=== PATIENT | male | born 1940 | race Caucasian/White ===

== ENCOUNTER 2018-04-29 14:23 | Emergency (ER) | payer MEDICARE, SELFPAY ==
[2018-04-29 14:24] VITALS: BP 149/90; PULSE 70; RESP 18; TEMP 36.7; O2SAT 99; BMI 17.2
--- NOTE | 2018-04-29 14:54 | NURSING ---
NO LW OR POA
--- NOTE | 2018-04-29 15:20 | ED.VISSUMM ---
- ER Visit Summary Date of Service: 04/29/18 Chief Complaint: Left calf pain History of Present Illness: The patient is a 78 M presenting with left calf pain. Patient complains of progressively increasing pain in the left calf. He exercises frequently. He does not recall specific injury. He was seen by his nurse practitioner for his primary care physician on Thursday. On Thursday he had venous Doppler and x-ray which were normal per patient. He is able to ambulate. He tried naproxen at home. He presents today due to persistent pain. Physical Examination: Vitals are stable. Patient is afebrile. Alert no acute distress. HEENT exam is unremarkable. Lungs are clear and equal bilaterally. Heart is regular rate and rhythm. Abdomen is soft nontender nondistended. Extremities very mild lateral left calf tenderness. No erythema or warmth. No swelling. Compartments soft. Normal DP and PT pulses. Active full range of motion. Skin is warm and dry. No focal neurologic deficit. Remainder of exam is unremarkable. Emergency Department Course and Treatment: Basic metabolic panel was obtained and shows a BUN of 21 with no old for comparison. Patient was discussed with Dr. Woodall and he will be seen for outpatient follow-up. He is advised to stay hydrated and use Tylenol for pain. Advised to rest ice and elevate. Advised return to ED if worsening complaints. Disposition: Discharge home Impression: Left lower extremity pain This note was generated with [employer] dictation software. It may contain incorrect words, spelling, and punctuation that were not noted in review of the chart prior to signing ED Disposition - Plan for ED Patient: Chief Complaint: Lower Extremity Injury Referrals: Benny Woodall III, MD [Primary Care Provider] -
[2018-04-29 15:36] LABS: Anion Gap 4 (5-15); BUN 21 mg/dL (7-18); BUN/Creat Ratio 22.2 RATIO (10-20); Calcium,Total 8.7 mg/dL (8.5-10.1); Chloride 105 mmol/L (98-107); Creatinine, Serum 0.94 mg/dL (0.70-1.30); EST Glomerular Filtration Rate 82 mL/min (>60); Est Glom Filt Rate - Afr Amer 99 mL/min (>60); Estimated Creatinine Clearance 46.15 ml/min; Glucose 93 mg/dL (74-106); Sodium Level 139 mmol/L (136-145)
--- NOTE | 2018-04-29 15:52 | ED.DEP ---
ED Disposition - Plan for ED Patient: Chief Complaint: Lower Extremity Injury Instructions: ED Muscle Pain Leg Cramps Referrals: Benny Woodall III, MD [Primary Care Provider] -
== END 2018-04-29 16:14 | disposition home or self-care (01) ==
LOC: ED 15:18
PROVIDERS: Emergency Provider Emergency Medicine; Family Provider Family Medicine; PCP Family Medicine
DX: M79.605 Pain in left leg (principal); I10 Essential (primary) hypertension; Z79.899 Other long term (current) drug therapy
CPT/HCPCS: 36415; 80048; 99282

== ENCOUNTER 2023-04-18 12:26 | Inpatient (IN) | payer MEDICARE, SELFPAY ==
[2023-04-18 12:28] VITALS: BP 158/75; PULSE 58; RESP 16; TEMP 36.8; O2SAT 95; BMI 17.4
--- NOTE | 2023-04-18 13:02 | CT_ITS ---
INDICATION: trauma, pain EXAMINATION: CT CERVICAL SPINE - CT Spine Cervical W/O Contrast Injection TECHNIQUE: Helically acquired images were obtained of the cervical spine. 2D reformatted images were reviewed. A radiation dose optimization technique was used for this scan. IV Contrast dosage and agent: None. RADIATION DOSAGE (If Supplied By Facility): CTDIvol = ( 15.80 ) mGy, DLP = ( 273.20 ) mGycm COMPARISON: FINDINGS: VERTEBRAE: No fracture. C7-T1 2 mm of anterior subluxation likely degenerative. There are 3 lytic lesions within the C7 vertebral body measuring up to 6 mm in diameter. These could represent hemangiomas or metastatic disease. DISCS and SPINAL CANAL: C2-3: Moderate loss of disc space height, mild disc osteophyte. C3-4 moderate loss of disc space height, mild disc osteophyte. C4-5 severe loss of disc space height, mild disc osteophyte, bilateral facet arthropathy and uncovertebral joint disease with moderate bilateral neural foraminal encroachment. C5-6 moderate loss of disc space height, mild disc osteophyte, bilateral facet arthropathy and uncovertebral joint disease with moderate bilateral neural foraminal encroachment. C6-7 moderate loss of disc space height, mild disc osteophyte, bilateral facet arthropathy and uncovertebral joint disease with moderate bilateral neural foraminal encroachment. C7-T1 mild central bulge, bilateral facet arthropathy and uncovertebral joint disease with moderate bilateral neural foraminal encroachment. Lung apices: Mild biapical fibrosis. NECK SOFT TISSUES: No prevertebral soft tissue swelling. There is no cervical adenopathy. LUNG APICES: Clear. CT/Spine Cervical without Contras IMPRESSION: No evidence of acute cervical spinal fracture or spondylolisthesis. There are 3 lytic lesions within the C7 vertebral body. Rule out neoplastic disease. Degenerative changes as above. Electronically Signed: Mckay Lee MD, CRISTOBAL at 14:16 EDT ,
--- NOTE | 2023-04-18 13:02 | RAD_ITS ---
INDICATION: falls, injury EXAMINATION/TECHNIQUE: X-RAY - XR Pelvis 1 or 2 Views COMPARISON: None. FINDINGS: PELVIC BONES: There is bilateral fracture of the sacrum which is vertically oriented. There is mild joint space narrowing both hips. HIPS: The articular structures are unremarkable. No displaced fracture seen in this frontal view. SOFT TISSUES: No soft tissue swelling or gas. RAD/Pelvis 1 or 2 Views IMPRESSION: Bilateral sacral fracture. Electronically Signed: Mckay Lee MD, CRISTOBAL at 14:23 EDT ,
--- NOTE | 2023-04-18 13:02 | EKG12_ITS ---
Test Reason : FALL Blood Pressure : / mmHG Vent. Rate : 058 BPM Atrial Rate : 058 BPM P-R Int : 196 ms QRS Dur : 080 ms QT Int : 470 ms P-R-T Axes : -02 -59 066 degrees QTc Int : 461 ms Sinus bradycardia Left axis deviation Abnormal ECG Confirmed by LIN SINGH, SHERYL ([id number]), desk editor LISANDRO FARRELL ([id number]) on 04/21/2023 8:37:04 AM Referred By: Confirmed By:SHERYL CEBALLOS MD
--- NOTE | 2023-04-18 13:02 | CT_ITS ---
INDICATION: pain, trauma EXAMINATION: CT LUMBAR SPINE - CT Spine Lumbar W/O Contrast Injection TECHNIQUE: Helically acquired images were obtained of the lumbar spine. 2D reformats were reviewed. A radiation dose optimization technique was used for this scan. IV Contrast dosage and agent: None. RADIATION DOSAGE (If Supplied By Facility): CTDIvol = ( 13.82 ) mGy, DLP = ( 474.00 ) mGycm COMPARISON: FINDINGS: Multiple parapelvic cysts versus moderate hydronephrosis left kidney. Nonobstructing right midpole calculus 2 mm. There is focal acute angulation in the mid S2 segment consistent with fracture. There is a fracture of the right and left hemisacrum anteriorly. VERTEBRAE: Mild dextroscoliosis thoracolumbar spine and levoscoliosis lumbar spine. Mild leftward subluxation of L4 on L5. L5-S1 grade 2 spondylolisthesis without spondylolysis. Grade 1 retrolisthesis of L2 on L3. DISCS and SPINAL CANAL: L1-2 severe loss of disc space height, vacuum disc phenomenon, mild disc osteophyte, mild bilateral facet arthropathy, moderate bilateral neural foraminal encroachment. L2-3 severe loss of disc space height, grade 1 retrolisthesis with mild pseudobulge, mild bilateral facet arthropathy, moderate bilateral neural foraminal encroachment. L3-4 moderate loss of disc space height, mild disc bulging, moderate bilateral facet arthropathy and ligamentous hypertrophy, moderate central stenosis with significant thecal sac 0.79 cm, moderate bilateral neural foraminal encroachment. L4-5 moderate loss of disc space height, mild disc bulging, moderate bilateral facet arthropathy, moderate bilateral neural foraminal encroachment. L5-S1 severe loss of disc space height, moderate pseudobulge, moderate bilateral facet arthropathy and ligamentous hypertrophy, moderately severe bilateral neural foraminal encroachment. VISUALIZED ABDOMEN: Visualized abdominal aorta is not dilated. There is no retroperitoneal adenopathy. CT/Spine Lumbar without Contrast IMPRESSION: Bilateral fracture of the sacrum in the region of the sacral ala. Focal acute angulation at the S2 segment. Additional findings above. Electronically Signed: Mckay Lee MD, CRISTOBAL at 14:21 EDT ,
--- NOTE | 2023-04-18 13:02 | RAD_ITS ---
INDICATION: falls EXAMINATION/TECHNIQUE: X-RAY - XR Chest 1 View COMPARISON: FINDINGS: LINES/DEVICES: None. LUNGS: Cranial opacity left upper lobe which could represent infiltrate or mass measuring 3.2 x 3.2 cm. There is moderate over aeration consistent with COPD. There is moderate infiltrate seen in the inferior medial right middle lobe. MEDIASTINUM AND CARDIOVASCULAR STRUCTURES: Cardiac silhouette not enlarged. Central airways and mediastinal contour are unremarkable. BONES AND SOFT TISSUES: Unremarkable. RAD/Chest 1 View (Portable) IMPRESSION: Left upper lobe infiltrate versus mass. Medial right middle lobe infiltrate. COPD. Electronically Signed: Mckay Lee MD, CRISTOBAL at 14:22 EDT ,
--- NOTE | 2023-04-18 13:02 | CT_ITS ---
INDICATION: trauma EXAMINATION: CT BRAIN - CT Head or Brain W/O Contrast Injection TECHNIQUE: Multiple axial images were obtained of the head without intravenous contrast. A radiation dose optimization technique was used for this scan. IV Contrast dosage and agent: None. RADIATION DOSAGE (If Supplied By Facility): CTDIvol = ( 44.99 ) mGy, DLP = ( 863.60 ) mGycm COMPARISON: FINDINGS: BRAIN PARENCHYMA: Moderate cortical and central atrophy, moderate cerebellar atrophy, severe chronic microvascular ischemic change extends in the periventricular to the subcortical white matter of both hemispheres. CALVARIUM, SKULL BASE, PARANASAL SINUSES AND MASTOID AIR CELLS: The posterior right ethmoidal mucosal thickening. No discrete lytic or blastic abnormalities. ORBITS: Both globes, extraocular muscles, optic nerves and retrobulbar fat appear unremarkable. ASPECTS Score for Acute Strokes: 10 CT/Brain/Head without Contrast IMPRESSION: Moderate cortical and central atrophy, moderate cerebellar atrophy. Severe chronic microvascular ischemic change. Moderate posterior right ethmoidal mucosal thickening. Electronically Signed: Mckay Lee MD, CRISTOBAL at 14:10 EDT ,
--- NOTE | 2023-04-18 13:02 | CT_ITS ---
INDICATION: pain, trauma EXAMINATION: CT THORACIC SPINE - CT Spine Thoracic W/O Contrast Injection TECHNIQUE: Helically acquired images were obtained of the thoracic spine. 2D reformats were reviewed. A radiation dose optimization technique was used for this scan. IV Contrast dosage and agent: None. RADIATION DOSAGE (If Supplied By Facility): CTDIvol = ( 18.42 ) mGy, DLP = ( 795.10 ) mGycm COMPARISON: FINDINGS: VERTEBRAE: Mild dextroscoliosis of the thoracic spine and levoscoliosis lower thoracic spine. No evidence of fracture. Mild diffuse anterior osteophyte formation throughout the thoracic spine. VERTEBRAL ALIGNMENT: Unremarkable. There is preservation of the normal thoracic kyphosis. DISCS: Loss of disc space height throughout the thoracic spine. VISUALIZED THORAX: Visualized thoracic aorta is nondilated. Lung talavera are clear. CT/Spine Thoracic without Contras IMPRESSION: Scoliosis and diffuse degenerative disc disease. No evidence of acute thoracic spinal fracture or spondylolisthesis. Electronically Signed: Mckay Lee MD, CRISTOBAL at 14:25 EDT ,
--- NOTE | 2023-04-18 13:06 | ED.VIS.FALL ---
HPI HPI - Fall History of Present Illness Chief Complaint: Fall Informant: patient and family Narrative Narrative: Patient is an 83-year-old male with history of hypertension presenting with injures and recurrent falls. Patient fell 2 days ago going up the stairs as he was not using the handrail. He injured his left shoulder. The following day when he was trying to get out of bed he was struggling and fell and hurt his back. He went to [facility] urgent care and had an x-ray of his shoulder done. At some points this morning or last night patient fell in the bathroom. He does not recall exactly how he fell but thinks it was more mechanical fall. He is not sure if he hit his head. He was unable to get himself up and laid on the ground until his children came and checked on him as he was not answering his phone. Patient lives home alone. Patient is complaining of back pain currently. Denies any chest pain, difficulty breathing or shortness of breath. Denies associated numbness or tingling. PFSH PFSH Medical History (Updated 04/18/23 @ 16:[address] Rosalinda Kilgore, DO) HTN (hypertension) Home Medications lisinopril 10 mg tablet 10 mg PO DAILY 04/29/18 [History Last Taken Unknown] Allergy/AdvReac Type Severity Reaction Status Date / Time No Known Allergies Allergy Verified 04/18/23 12:27 Family History (Updated 04/18/23 @ 15:[address] Nicholas Marroquin MD) Other Dementia Surgical History (Updated 04/18/23 @ 15:[address] Nicholas Marroquin MD) History of appendectomy History of splenectomy Social History Smoking Status: Former smoker ROS ROS ED Constitutional Constitutional ED: Denies chills or fever(s) Eyes Eyes: Denies change in vision ENT ENT ED: Denies sore throat Cardiovascular Cardiovascular: Denies chest pain Respiratory/Chest Respiratory/Chest: Denies cough or dyspnea Gastrointestinal Gastrointestinal: Denies abdominal pain, nausea or vomiting Musculoskeletal Musculoskeletal: Reports back pain and other Details: left shoulder pain Integumentary Denies Abrasions or rash Neurologic Neurologic: Reports weakness; Denies paresthesias Hematologic/Lymphatic Hematologic/Lymphatic: Denies easy bleeding EXAM Physical Exam Const Vital Signs: 04/18/23 12:28 04/18/23 12:32 04/18/23 15:02 Temperature 98.2 F 98.6 F Temperature Source Temporal Temporal Pulse Rate 58 L 60 Respiratory Rate 16 18 Respiratory Effort Normal Non-Labored Respiratory Depth Normal Respiratory Pattern Normal Blood Pressure 158/75 H 162/77 H Blood Pressure Mean 102 105 Pulse Ox 95 94 Oxygen Delivery Method Room Air Room Air Room Air 04/18/23 14:26 Temperature Temperature Source Pulse Rate Respiratory Rate 16 Respiratory Effort Respiratory Depth Respiratory Pattern Blood Pressure Blood Pressure Mean Pulse Ox Oxygen Delivery Method Constitutional Narrative: frail General Appearance ED: NAD NONI Reports normocephalic atraumatic Eyes PERRL and EOMs intact bilaterally Neck Neck Narrative: Chronic appearing exaggerated cervical lordosis present General: Negative for tenderness Chest Wall inspection of chest normal and palpation of chest normal Resp normal respiratory effort Cardio regular rate, regular rhythm and no murmurs GI non-tender and non-distended Back/Spine no CVA tenderness Extremity Extremity Narrative: No obvious deformity of the extremities. No pain with range of motion of all 4 extremities diffusely. Negative logroll and range of motion of the hips bilaterally. Pelvis is stable. Patient has tenderness palpation of the lumbar spine most pronounced. He also some mild tenderness of the distal thoracic spine. No obvious step-off sign. Neuro [place] Coma Scale: document GCS findings To Voice Obeys Commands Oriented 14 Sensorium / Orientation: alert Motor Exam: general weakness Psych Psych Narrative: Slightly slow to respond otherwise acting appropriately Skin Skin Narrative: Area of erythema over the right proximal buttock/right lower paraspinal region consistent with a pressure wound MDM MDM MDM Narrative Medical decision making narrative: Patient is an 83-year-old male that is generally healthy presenting for falls and inability to get up from the ground. Patient's had 2-3 falls over the past 2 days and spent at least a couple hours on the ground last night from this most recent fall. He is mostly complaining of lower back/buttocks pain. Patient on physical exam does have tenderness of his lumbar and sacral spine as well as a pressure wound on his left buttocks likely consistent with rhabdomyolysis. Patient is given 2 mg IV morphine as well as IV fluids for comfort. On repeat evaluation of family states he is more comfortable and is resting nicely however he is slightly confused. Patient is found to have a mild leukocytosis of 13.5 which could be reactive from his fall and rhabdo. He has normal kidney function with GFR of 82 however he does have a significant elevation of his CPK at 2434. I suspect patient does have rhabdomyolysis associated with his fall. His chest x-ray shows left upper lobe infiltrate versus mass as well as repeat medial right middle lobe infiltrate and COPD changes. He has not complained of any cough, fever or other signs of an acute infection so I would not treat at this time but this is discussed with the hospitalist. In addition patient is found to have possible lytic lesions of the C7 vertebral body and CT of the lumbar spine bilateral fracture of the sacrum in the region of the sacral parish and focal acute angulation of the S2 segments, this is also seen on the pelvic x-ray. With these findings patient will be admitted to the medicine service. Patient and family agreeable with this plan of care. They are counseled the possibility of new metastatic cancer and this to be worked up further inpatient. Lab Data Attestation: I reviewed the patient's lab results. Labs: Laboratory Results - last 24 hr 04/18/23 04/18/23 04/18/23 13:20 13:20 14:30 WBC 13.5 H RBC 3.13 L Hgb 10.6 L Hct 31.1 L MCV 99.4 H MCH 33.9 H MCHC 34.1 RDW Std Deviation 56.8 H RDW Coeff of [place] 15.7 H Plt Count 135 L MPV 12.2 H Immature Gran % (Auto) 0.300 Neut % (Auto) 84.0 H Lymph % (Auto) 4.7 L Miller % (Auto) 10.8 H Eos % (Auto) 0.1 Baso % (Auto) 0.1 Absolute Neuts (auto) 11.3 H Absolute Lymphs (auto) 0.63 L Nucleated RBC % 0 Sodium 140 Potassium 4.3 Chloride 105 Carbon Dioxide 27.0 Anion Gap 8 BUN 20 H Creatinine 0.93 Estim Creat Clear Calc 44.91 Est GFR (MDRD) Af Amer 100 Est GFR (MDRD) Non-Af 82 BUN/Creatinine Ratio 21.5 H Glucose 99 Calcium 9.1 Total Bilirubin 2.00 H AST 86 H ALT 50 Alkaline Phosphatase 46 Total Creatine Kinase 2434 H Total Protein 7.0 Albumin 3.6 Globulin 3.4 Albumin/Globulin Ratio 1.1 Urine Color Yellow Urine Clarity Clear Urine pH 5.0 Ur Specific [place] 1.020 Urine Protein 15 H Urine Glucose (UA) Normal Urine Ketones 15 H Urine Occult Blood 150 H Urine Nitrite Negative Urine Bilirubin Negative Urine Urobilinogen Normal Ur Leukocyte Esterase Negative Urine RBC 0-5 SEEN Urine WBC 0 SEEN Ur Squamous Epith Cells 0-5 SEEN Urine Bacteria 0 SEEN Urine Mucus 0 SEEN Radiography Diagnostic Testing: Clinical Impression(s) from Imaging Studies Brain CT 04/18/23 13:02 IMPRESSION: Moderate cortical and central atrophy, moderate cerebellar atrophy. Severe chronic microvascular ischemic change. Moderate posterior right ethmoidal mucosal thickening. Electronically Signed: Mckay Lee MD, JD at 14:10 EDT , Cervical Spine CT 04/18/23 13:02 IMPRESSION: No evidence of acute cervical spinal fracture or spondylolisthesis. There are 3 lytic lesions within the C7 vertebral body. Rule out neoplastic disease. Degenerative changes as above. Electronically Signed: Mckay Lee MD, JD at 14:16 EDT , Chest X-Ray 04/18/23 13:02 IMPRESSION: Left upper lobe infiltrate versus mass. Medial right middle lobe infiltrate. COPD. Electronically Signed: Mckay Lee MD, JD at 14:22 EDT , Lumbar Spine CT 04/18/23 13:02 IMPRESSION: Bilateral fracture of the sacrum in the region of the sacral ala. Focal acute angulation at the S2 segment. Additional findings above. Electronically Signed: Mckay Lee MD, JD at 14:21 EDT , Pelvis X-Ray 04/18/23 13:02 IMPRESSION: Bilateral sacral fracture. Electronically Signed: Mckay Lee MD, CRISTOBAL at 14:23 EDT , Thoracic Spine CT 04/18/23 13:02 IMPRESSION: Scoliosis and diffuse degenerative disc disease. No evidence of acute thoracic spinal fracture or spondylolisthesis. Electronically Signed: Mckay Lee MD, CRISTOBAL at 14:25 EDT , Rhythm Strip Rhythm Strip: Sinus Rhythm Rate: 58 Ectopy: None EKG Initial EKG: Attestation: I personally reviewed and interpreted this EKG as follows: Interpretation: Sinus Bradycardia Comments: Sinus bradycardia at a rate of 58 bpm Left axis deviation Normal ST segments Normal intervals Prior EKG tracings: not available for review Prior: No Prior Management Discussion w/another healthcare provider: Hospitalist Discharge Plan Triage Chief Complaint: Fall ED Provider: Rosalinda Kilgore Dx/Rx/DC Orders Clinical Impression: Rhabdomyolysis, Sacral fracture, closed, Malignancy, Debility Primary Care Provider: Piero Ngo Disposition Disposition: [facility]
[2023-04-18] MEDS: Morphine 2 MG/ML Syringe IV (13:22)
[2023-04-18] MEDS: 0.9% Normal Saline 1,000 ML 100 ML IV ×2 (13:22→23:22)
[2023-04-18 13:32] LABS: Absolute Lymphocyte Count 0.63 X10^3/uL (0.83-4.51); Absolute Neutrophil Count 11.3 X10^3/uL (2.0-7.7); Basophil# 0.02 X10^3/uL; Basophil% 0.1 % (0-1); Eosinophil# 0.02 X10^3/uL; Eosinophils% 0.1 % (0-5); Hematocrit 31.1 % (40-54); Hemoglobin 10.6 g/dL (13.0-16.5); Lymphocyte # 0.63 X10^3/ul (0.83-4.51); Lymphocyte % 4.7 % (19-41); Mean Corp Hgb Conc 34.1 g/dL (32-36); Mean Corpuscular Hgb 33.9 pg (27.0-32.0); Mean Corpuscular Volume 99.4 fL (80-94); Mean Platelet Vol. 12.2 fl (6.2-12.0); Monocyte# 1.45 X10^3/uL; Monocyte% 10.8 % (0-10); NRBC Flagged by Analyzer 0 % (0-5); Neutrophil # 11.31 X10^3/uL (2.7-7.7); Platelet Count 135 K/mm3 (150-450); RBC Distribution Width CV 15.7 % (11.6-14.6); RBC Distribution Width SD 56.8 fl (35.1-43.9); Red Blood Count 3.13 M/mm3 (4.6-6.2); White Blood Count 13.5 K/mm3 (4.4-11.0)
[2023-04-18 14:12] LABS: ALB/GLOB Ratio 1.1 RATIO (0.9-2.4); AST(SGOT) 86 U/L (15-37); Alanine Aminotransfer ALT/SGPT 50 U/L (16-61); Albumin, Serum 3.6 g/dL (3.2-5.0); Alkaline Phosphatase 46 U/L (45-117); Anion Gap 8 (5-15); BUN 20 mg/dL (7-18); BUN/Creat Ratio 21.5 RATIO (10-20); CPK Total, Creatine Kinase 2434 U/L (39-308); Calcium,Total 9.1 mg/dL (8.5-10.1); Chloride 105 mmol/L (98-107); Creatinine, Serum 0.93 mg/dL (0.70-1.30); EST Glomerular Filtration Rate 82 mL/min (>60); Est Glom Filt Rate - Afr Amer 100 mL/min (>60); Estimated Creatinine Clearance 44.91 ml/min; Globulin 3.4 g/dL (2.2-4.2); Glucose 99 mg/dL (74-106); Potassium 4.3 mmol/L (3.5-5.1); Sodium Level 140 mmol/L (136-145)
[2023-04-18 14:26] VITALS: RESP 16
[2023-04-18 14:34] LABS: Bacteria 0 SEEN /hpf (None Seen); Mucous, Urine 0 SEEN /hpf (<or=2+); White Blood Cells 0 SEEN /hpf (0-5)
[2023-04-18 14:40] LABS: Color, Urine Yellow (Yellow); Glucose, Dipstick Normal (Normal); Ketone-Dipstick 15 mg/dl (Negative); Leukocyte Esterase-Dipstick Negative /ul (Negative); Nitrite-Dipstick Negative (Negative); Occult Blood-Urine 150 /ul (Negative); Protein-Dipstick 15 mg/dl (Negative); Urine Bilirubin Dipstick Negative (Negative); Urine Clarity Clear (Clear); Urine Urobilinogen Normal (Normal)
[2023-04-18 14:52] LABS: Red Blood Cells-Urine 0-5 SEEN /hpf (0-5); Squamous Epithelial Cells - UA 0-5 SEEN /hpf (0-5)
--- NOTE | 2023-04-18 14:55 | PCM.HP.STD ---
HPI - General General Date of Admission: 04/18/23 HPI Narrative TAYA BONILLA, is a 83 M who presents to the hospital after multiple falls over the last 3 months. He denies any shortness of breath, fevers, chills, sputum production, weight loss. He states that he monitors his weight and does workout fairly regularly. He fell 2 days ago and injured his left shoulder and went to [facility] urgent care for an x-ray which was unremarkable. He fell again this morning in the bathroom but he does not recall how he fell and he was unsure whether or not he hit his head or if he had any loss of consciousness. He was unable to get himself up from the floor so he laid on the ground until his children came and found him. He was answering the phone as he lives alone. Is unclear as to how long he had been on the floor but he does have an elevated creatinine kinase indicative of rhabdomyolysis. He does have sacral fracture is well as 3 lytic lesions in his C7 vertebrae. Chest x-ray demonstrates bilateral pulmonary masses that could be related to lung cancer that he was unaware of versus infection, he does have a leukocytosis which could also be related to his rhabdo. He denies any sputum production or increased shortness of breath. CT of the chest with contrast is pending in the ER [facility] Medical History (Updated 04/18/23 @ 15:[address] Nicholas Marroquin MD) HTN (hypertension) Home Medications lisinopril 10 mg tablet 10 mg PO DAILY 04/29/18 [History Last Taken Unknown] Allergy/AdvReac Type Severity Reaction Status Date / Time No Known Allergies Allergy Verified 04/18/23 12:27 Family History (Updated 04/18/23 @ 15:[address] Nicholas Marroquin MD) Other Dementia Surgical History (Updated 04/18/23 @ 15:[address] Nicholas Marroquin MD) History of appendectomy History of splenectomy Social History Smoking Status: Former smoker ROS Constitutional Constitutional: Reports weakness; Denies chills, fatigue, fever(s) or malaise Eyes Eyes: Denies blurry vision ENT HEENT: Denies headache(s) or nasal discharge Cardiovascular Cardiovascular: Denies chest pain, dyspnea on exertion or syncope Respiratory/Chest Respiratory/Chest: Denies cough, shortness of breath at rest or shortness of breath with exertion Gastrointestinal Gastrointestinal: Denies constipation, diarrhea, nausea or vomiting Genitourinary Genitourinary: Denies dysuria Musculoskeletal Musculoskeletal: Reports back pain Neurologic Neurologic: Denies focal weakness, numbness or tremor(s) Psychiatric Psychiatric: Denies anxiety or depression Vital Signs Vital Signs Vital Signs: 04/18/23 12:28 04/18/23 12:32 Temperature 98.2 F Temperature Source Temporal Pulse Rate 58 L Respiratory Rate 16 Respiratory Effort Normal Non-Labored Respiratory Depth Normal Respiratory Pattern Normal Blood Pressure 158/75 H Blood Pressure Mean 102 Pulse Ox 95 Oxygen Delivery Method Room Air Room Air Weight Weight: 118 lb 6.212 oz Body Mass Index (BMI) 17.4 Physical Exam Narrative General: Alert, Oriented x3, Cooperative, No apparent distress, thin/frail HEENT: Atraumatic, PERRLA, EOMI, Normocephalic Oral: Dry mucosa Neck: Supple, No JVD Lungs: Diminished, Normal air movement, No rhonchi, No wheeze, No rales Cardiovascular: Regular rate, Regular Rhythm, Normal S1, Normal S2, No murmurs Abdomen: Soft, Non Tender, Non-Distended, No Hepato-splenomegaly Extremities: No edema, Capillary Refill Less than 3 Seconds Skin: Redness on his lumbar/sacral region Musculoskeletal: No Tenderness to Palpation of Joints or Extremities Neurological: Motor Exam 5/5 strength throughout, Sensory exam intact to light touch and pain Psych/Mental Status: Normal Affect, Appropriate Results Lab / Micro Data Result Diagrams: 04/18/23 13:20 04/18/23 13:20 Labs: Laboratory Results - last 24 hr 04/18/23 13:20: WBC 13.5 H, RBC 3.13 L, Hgb 10.6 L, Hct 31.1 L, MCV 99.4 H, MCH 33.9 H, MCHC 34.1, RDW Std Deviation 56.8 H, RDW Coeff of [place] 15.7 H, Plt Count 135 L, MPV 12.2 H, Immature Gran % (Auto) 0.300, Neut % (Auto) 84.0 H, Lymph % (Auto) 4.7 L, [place] % (Auto) 10.8 H, Eos % (Auto) 0.1, Baso % (Auto) 0.1, Absolute Neuts (auto) 11.3 H, Absolute Lymphs (auto) 0.63 L, Nucleated RBC % 0 04/18/23 13:20: Sodium 140, Potassium 4.3, Chloride 105, Carbon Dioxide 27.0, Anion Gap 8, BUN 20 H, Creatinine 0.93, Estim Creat Clear Calc 44.91, Est GFR (MDRD) Af Amer 100, Est GFR (MDRD) Non-Af 82, BUN/Creatinine Ratio 21.5 H, Glucose 99, Calcium 9.1, Total Bilirubin 2.00 H, AST 86 H, ALT 50, Alkaline Phosphatase 46, Total Creatine Kinase 2434 H, Total Protein 7.0, Albumin 3.6, Globulin 3.4, Albumin/Globulin Ratio 1.1 04/18/23 14:30: Urine Color Yellow, Urine Clarity Clear, Urine pH 5.0, Ur Specific [place] 1.020, Urine Protein 15 H, Urine Glucose (UA) Normal, Urine Ketones 15 H, Urine Occult Blood 150 H, Urine Nitrite Negative, Urine Bilirubin Negative, Urine Urobilinogen Normal, Ur Leukocyte Esterase Negative, Urine RBC 0-5 SEEN, Urine WBC 0 SEEN, Ur Squamous Epith Cells 0-5 SEEN, Urine Bacteria 0 SEEN, Urine Mucus 0 SEEN Radiology Impression Brain CT 04/18/23 13:02 IMPRESSION: Moderate cortical and central atrophy, moderate cerebellar atrophy. Severe chronic microvascular ischemic change. Moderate posterior right ethmoidal mucosal thickening. Electronically Signed: Mckay Lee MD, CRISTOBAL at 14:10 EDT Reading Location ID and State: [facility] / [place] Tel , Service support , Cervical Spine CT 04/18/23 13:02 IMPRESSION: No evidence of acute cervical spinal fracture or spondylolisthesis. There are 3 lytic lesions within the C7 vertebral body. Rule out neoplastic disease. Degenerative changes as above. Electronically Signed: Mckay Lee MD, CRISTOBAL at 14:16 EDT , Chest X-Ray 04/18/23 13:02 IMPRESSION: Left upper lobe infiltrate versus mass. Medial right middle lobe infiltrate. COPD. Electronically Signed: Mckay Lee MD, CRISTOBAL at 14:22 EDT , Lumbar Spine CT 04/18/23 13:02 IMPRESSION: Bilateral fracture of the sacrum in the region of the sacral ala. Focal acute angulation at the S2 segment. Additional findings above. Electronically Signed: Mckay Lee MD, JD at 14:21 EDT , Pelvis X-Ray 04/18/23 13:02 IMPRESSION: Bilateral sacral fracture. Electronically Signed: Mckay Lee MD, JD at 14:23 EDT , Thoracic Spine CT 04/18/23 13:02 IMPRESSION: Scoliosis and diffuse degenerative disc disease. No evidence of acute thoracic spinal fracture or spondylolisthesis. Electronically Signed: Mckay Lee MD, JD at 14:25 EDT , Assessment & Plan Assessment/Plan (1) Rhabdomyolysis: (2) Sacral fracture, closed: (3) Malignancy: PLAN: Plan 1. Weakness and debility with multiple falls with a sacral fracture and rhabdomyolysis possibly due to to pulmonary malignancy ? He is a former smoker, though not significant in volume and he quit in the 90s ? He does have bilateral pulmonary masses that will be further characterized by CT of the chest with contrast ? He does have 3 lytic lesions in C7 which could be attributed to a pulmonary malignancy ? We will get PT and OT to evaluate for possible placement ? We will continue with IV fluids for his rhabdomyolysis and recheck CK ? UA is unremarkable, and he is afebrile therefore we will hold off on antibiotics at this time 2. Hypertension ? Blood pressures are stable at the moment once his medications are verified can be restarted DVT: Nisamaryx I had a 20-minute discussion on advance care planning including CODE STATUS explained the differences between full code and DNR. We also discussed possible options depending on the results of the CT of the chest if he were to have a stage IV pulmonary malignancy 75 minutes was spent on direct patient care as well as chart review and collaboration with colleagues Charges/Coding Visit Charges Inpatient E&M: 74960 Init Hosp L3 Procedures Hospitalists Procedures: 01530 Advncd Care Plan 30 Min
[2023-04-18 15:02] VITALS: BP 162/77; PULSE 60; RESP 18; TEMP 37; O2SAT 94
--- NOTE | 2023-04-18 15:47 | CT_ITS ---
INDICATION: Pulm malignancy with lytic spine lesions EXAMINATION: CT CHEST WITH CONTRAST - CT Chest W/ Contrast Injection TECHNIQUE: Helically acquired images were obtained of the chest following IV contrast. A radiation dose optimization technique was used for this scan. IV Contrast dosage and agent: 100 cc [id number] COMPARISON: None. FINDINGS: LUNGS, PLEURA AND LARGE AIRWAYS: There is a demonstrated left upper lobe peripherally based nodule measuring 8 mm. Within the right lower lobe posterior segment is a pleural-based region of airspace disease measuring 1.5 cm. No pleural effusion or thickening. No pneumothorax. THYROID: No thyroid lesions. HEART AND PERICARDIUM: Heart size is normal. No pericardial effusion. VESSELS: Thoracic aorta is not dilated. No aortic dissection. No obvious central pulmonary embolism although this study was not performed with the pulmonary embolism protocol. MEDIASTINUM AND RODY: No mediastinal or hilar adenopathy. Esophagus is unremarkable. No hiatal hernia. UPPER ABDOMEN: No acute pathology. BONES: Heterogeneous demineralized osseous structures are present with again noted hypodense lesions within C7 better seen on same-day CT. CT/Chest WITH Contrast IMPRESSION: 1. Left upper lobe 8 mm pulmonary nodule. In addition there is airspace disease measuring 1.5 cm abutting the right lower lobe posterior pleural-based margin. Recommend follow-up imaging in 3-4 months for further assessment and characterization ulnar consult. 2. Diffuse demineralization of the osseous structures with no definitive additional lytic lesions with noted hypodensities within the C7 better visualized on same-day CT cervical spine. Consider MRI imaging of the cervical spine with contrast for more definitive characterization. Electronically Signed: Gerber Bhagat DO at 16:43 EDT ,
[2023-04-18 17:20] VITALS: BMI 15.2
[2023-04-18 17:43] VITALS: BP 160/82; PULSE 57; RESP 17; TEMP 37.6; O2SAT 99
[2023-04-18 22:29] VITALS: BP 148/72; PULSE 63; RESP 16; TEMP 36.8; O2SAT 95
[2023-04-18] MEDS: Acetaminophen 500 MG Tablet 1000 MG PO (22:33)
[2023-04-19 05:04] LABS: Absolute Lymphocyte Count 1.06 X10^3/uL (0.83-4.51); Absolute Neutrophil Count 9.3 X10^3/uL (2.0-7.7); Basophil# 0.02 X10^3/uL; Basophil% 0.2 % (0-1); Eosinophil# 0.03 X10^3/uL; Eosinophils% 0.3 % (0-5); Hematocrit 30.3 % (40-54); Hemoglobin 10.2 g/dL (13.0-16.5); Lymphocyte # 1.06 X10^3/ul (0.83-4.51); Lymphocyte % 8.9 % (19-41); Mean Corp Hgb Conc 33.7 g/dL (32-36); Mean Corpuscular Hgb 33.4 pg (27.0-32.0); Mean Corpuscular Volume 99.3 fL (80-94); Mean Platelet Vol. 12.2 fl (6.2-12.0); Monocyte# 1.51 X10^3/uL; Monocyte% 12.6 % (0-10); NRBC Flagged by Analyzer 0 % (0-5); Neutrophil # 9.29 X10^3/uL (2.7-7.7); Neutrophil % 77.7 % (47-70); POSITIVE DIFFERENTIAL YES; Platelet Count 118 K/mm3 (150-450); Red Blood Count 3.05 M/mm3 (4.6-6.2); White Blood Count 11.9 K/mm3 (4.4-11.0)
[2023-04-19 05:08] LABS: Differential Indicated SCAN CRITERIA MET
[2023-04-19 05:28] VITALS: BP 144/79; PULSE 66; RESP 16; TEMP 36.9; O2SAT 97
[2023-04-19] MEDS: Acetaminophen 500 MG Tablet 1000 MG PO ×3 (05:36→21:28)
[2023-04-19 05:45] LABS: Anion Gap 7 (5-15); BUN 24 mg/dL (7-18); BUN/Creat Ratio 27.3 RATIO (10-20); Calcium,Total 8.2 mg/dL (8.5-10.1); Chloride 109 mmol/L (98-107); Creatinine, Serum 0.88 mg/dL (0.70-1.30); EST Glomerular Filtration Rate 88 mL/min (>60); Est Glom Filt Rate - Afr Amer 106 mL/min (>60); Estimated Creatinine Clearance 40.17 ml/min; Glucose 88 mg/dL (74-106); Potassium 3.5 mmol/L (3.5-5.1); Sodium Level 141 mmol/L (136-145)
[2023-04-19 05:56] LABS: Acanthocytes RARE; Differential Comment SCANNED; Hypochromasia 1+
[2023-04-19 06:09] LABS: CPK Total, Creatine Kinase 1528 U/L (39-308)
--- NOTE | 2023-04-19 07:23 | PN.HOSP_ITS ---
Reason for Visit Reason for Visit: Diagnoses Malignant (primary) neoplasm, unspecified (04/18/23) Rhabdomyolysis (04/18/23) Unspecified fracture of sacrum, initial encounter for closed fracture (04/18/23) Subjective Subjective Patient is an 83-year-old M who apparently fell at home and laid on the floor for 4 hours. Brought to the emergency department diagnosed with acute rhabdomyolysis as well as sacral fracture admitted to regular nursing floor for further management Objective Data Objective Data Vital Signs: Vital Signs Temp Pulse Resp BP Pulse Ox O2 Del Method 98.4 F 66 16 144/79 H 97 Room Air 04/19/23 05:28 04/19/23 05:28 04/19/23 05:28 04/19/23 05:28 04/19/23 05:28 04/19/23 05:28 Oxygen Delivery Method Room Air Weight: 45.45 kg Body Mass Index (BMI) 15.2 Intake & Output: Intake and Output for Last 24 Hours 04/17/23 04/18/23 04/19/23 23:59 23:59 23:59 Intake Total 1120 / 1220 175 / 175 Output Total 250 / 250 Balance 1120 / 1070 -75 / -75 Lab / Micro Data Result Diagrams: 04/19/23 04:47 04/19/23 04:47 Labs: Laboratory Results - last 24 hr 04/18/23 13:20: WBC 13.5 H, RBC 3.13 L, Hgb 10.6 L, Hct 31.1 L, MCV 99.4 H, MCH 33.9 H, MCHC 34.1, RDW Std Deviation 56.8 H, RDW Coeff of [place] 15.7 H, Plt Count 135 L, MPV 12.2 H, Immature Gran % (Auto) 0.300, Neut % (Auto) 84.0 H, Lymph % (Auto) 4.7 L, [place] % (Auto) 10.8 H, Eos % (Auto) 0.1, Baso % (Auto) 0.1, Absolute Neuts (auto) 11.3 H, Absolute Lymphs (auto) 0.63 L, Nucleated RBC % 0 04/18/23 13:20: Sodium 140, Potassium 4.3, Chloride 105, Carbon Dioxide 27.0, Anion Gap 8, BUN 20 H, Creatinine 0.93, Estim Creat Clear Calc 44.91, Est GFR (MDRD) Af Amer 100, Est GFR (MDRD) Non-Af 82, BUN/Creatinine Ratio 21.5 H, Glucose 99, Calcium 9.1, Total Bilirubin 2.00 H, AST 86 H, ALT 50, Alkaline Phosphatase 46, Total Creatine Kinase 2434 H, Total Protein 7.0, Albumin 3.6, Globulin 3.4, Albumin/Globulin Ratio 1.1 04/18/23 14:30: Urine Color Yellow, Urine Clarity Clear, Urine pH 5.0, Ur Specific [place] 1.020, Urine Protein 15 H, Urine Glucose (UA) Normal, Urine Ketones 15 H, Urine Occult Blood 150 H, Urine Nitrite Negative, Urine Bilirubin Negative, Urine Urobilinogen Normal, Ur Leukocyte Esterase Negative, Urine RBC 0-5 SEEN, Urine WBC 0 SEEN, Ur Squamous Epith Cells 0-5 SEEN, Urine Bacteria 0 SEEN, Urine Mucus 0 SEEN 04/19/23 04:47: WBC 11.9 H, RBC 3.05 L, Hgb 10.2 L, Hct 30.3 L, MCV 99.3 H, MCH 33.4 H, MCHC 33.7, RDW Std Deviation 58.0 H, RDW Coeff of [place] 16.0 H, Plt Count 118 L, MPV 12.2 H, Immature Gran % (Auto) 0.300, Neut % (Auto) 77.7 H, Lymph % (Auto) 8.9 L, [place] % (Auto) 12.6 H, Eos % (Auto) 0.3, Baso % (Auto) 0.2, Absolute Neuts (auto) 9.3 H, Absolute Lymphs (auto) 1.06, Nucleated RBC % 0, Differential Comment SCANNED, Diff Path Review May foll, Hypochromasia 1+, Acanthocytes (Spur) RARE 04/19/23 04:47: Sodium 141, Potassium 3.5, Chloride 109 H, Carbon Dioxide 25.0, Anion Gap 7, BUN 24 H, Creatinine 0.88, Estim Creat Clear Calc 40.17, Est GFR (MDRD) Af Amer 106, Est GFR (MDRD) Non-Af 88, BUN/Creatinine Ratio 27.3 H, Glucose 88, Calcium 8.2 L 04/19/23 04:47: Total Creatine Kinase 1528 H Radiography Diagnostic Testing: Radiology Impression Brain CT 04/18/23 13:02 IMPRESSION: Moderate cortical and central atrophy, moderate cerebellar atrophy. Severe chronic microvascular ischemic change. Moderate posterior right ethmoidal mucosal thickening. Electronically Signed: Mckay Lee MD, JD at 14:10 EDT , Cervical Spine CT 04/18/23 13:02 IMPRESSION: No evidence of acute cervical spinal fracture or spondylolisthesis. There are 3 lytic lesions within the C7 vertebral body. Rule out neoplastic disease. Degenerative changes as above. Electronically Signed: Mckay Lee MD, JD at 14:16 EDT , Chest X-Ray 04/18/23 13:02 IMPRESSION: Left upper lobe infiltrate versus mass. Medial right middle lobe infiltrate. COPD. Electronically Signed: Mckay Lee MD, JD at 14:22 EDT , Lumbar Spine CT 04/18/23 13:02 IMPRESSION: Bilateral fracture of the sacrum in the region of the sacral ala. Focal acute angulation at the S2 segment. Additional findings above. Electronically Signed: Mckay Lee MD, JD at 14:21 EDT , Pelvis X-Ray 04/18/23 13:02 IMPRESSION: Bilateral sacral fracture. Electronically Signed: Mckay Lee MD, JD at 14:23 EDT , Thoracic Spine CT 04/18/23 13:02 IMPRESSION: Scoliosis and diffuse degenerative disc disease. No evidence of acute thoracic spinal fracture or spondylolisthesis. Electronically Signed: Mckay Lee MD, CRISTOBAL at 14:25 EDT , Chest CT 04/18/23 15:47 IMPRESSION: 1. Left upper lobe 8 mm pulmonary nodule. In addition there is airspace disease measuring 1.5 cm abutting the right lower lobe posterior pleural-based margin. Recommend follow-up imaging in 3-4 months for further assessment and characterization ulnar consult. 2. Diffuse demineralization of the osseous structures with no definitive additional lytic lesions with noted hypodensities within the C7 better visualized on same-day CT cervical spine. Consider MRI imaging of the cervical spine with contrast for more definitive characterization. Electronically Signed: Gerber Bhagat DO at 16:43 EDT , Rhythm Strip Rhythm Strip: Sinus Rhythm Rate: 58 Ectopy: None Physical Exam Narrative GENERAL: cooperative HEENT: Atraumatic; normocephalic EYES; Anicteric, Normal Conjunctiva NECK; supple, normal thyroid, RESPIRATORY: Diminished to auscultation CARDIOVASCULAR: Regular S1 S2, GI: soft, normoactive bowel sounds, : No Renal angle tenderness; EXTREMITIES: No edema, no clubbing, MUSCULOSKELETAL: no muscle wasting NEURO: Awake; no lateralizing signs. SKIN: No Rash PSYCH; Flat affect Assessment & Plan Assessment/Plan (1) Rhabdomyolysis: (2) Sacral fracture, closed: (3) Malignancy: PLAN: Plan Patient is an 83-year-old M who apparently fell at home and laid on the floor for 4 hours. Brought to the emergency department diagnosed with acute rhabdomyolysis as well as sacral fracture admitted to regular nursing floor for further management 1. Fall with sacral fracture ?. Imaging studies on admission did show Bilateral sacral fracture, admitted to the regular nursing floor managed with pain management PT OT as tolerated 2. Acute rhabdomyolysis ? Due to prolonged periods of immobilization. Patient being managed with IV fluid with monitoring of CPK levels as well as BMPs 3. 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 CT of the chest obtained did show Left upper lobe 8 mm pulmonary nodule. In addition there is airspace disease measuring 1.5 cm abutting the right lower lobe posterior pleural-based margin. Diffuse demineralization of the osseous structures with no definitive additional lytic lesions with noted hypodensities within the C7 better visualized on same-day CT cervical spine. Consider MRI imaging of the cervical spine with contrast for more definitive characterization. Consult placed to pulmonary medicine Case discussed with Dr. Black 4. Hypertension - Blood pressure controlled, home medications continued with dose adjustment as needed 5. Anemia - Secondary to chronic disorder monitoring H&H and transfuse if patient becomes symptomatic or hemoglobin falls below 7 6. Thrombocytopenia ? Patient platelet count on admission was 135 did drop to 118 patient had been started on Lovenox, if patient continues to experience further drop in platelet count Lovenox will be discontinued 7. DVT prophylaxis ? Bilateral SCDs and Lovenox Time spent in the patient's overall evaluation,decision-making process, review of diagnostic data, adjustment of management, discussion with other providers, nursing nursing and ancillary staff involved in patient's care documentation, 52 Minutes Charges/Coding Visit Charges Inpatient E&M: 88217 Subs Hosp L3
[2023-04-19] MEDS: 0.9% Normal Saline 1,000 ML 100 ML IV ×2 (08:22→18:37)
[2023-04-19 08:29] VITALS: BP 158/77; PULSE 74; RESP 18; TEMP 36.7; O2SAT 98
[2023-04-19] MEDS: Gabapentin 100 MG Capsule 200 MG PO (09:31)
[2023-04-19] MEDS: Arthritis Pain Compound 60 CLICK TUBE TOPICAL ×2 (09:31→21:28)
[2023-04-19] MEDS: Enoxaparin 40 MG/0.4 ML Syringe SC (09:34)
[2023-04-19] MEDS: Lisinopril 10 MG Tablet PO (09:38)
[2023-04-19] MEDS: traMADol 50 MG Tablet PO (14:23)
[2023-04-19 15:57] VITALS: BP 167/78; PULSE 80; RESP 18; TEMP 36.9; O2SAT 98
[2023-04-19 21:23] VITALS: BP 160/77; PULSE 61; RESP 18; TEMP 36.6; O2SAT 98
[2023-04-20] MEDS: 0.9% Normal Saline 1,000 ML 100 ML IV ×2 (03:40→14:47)
[2023-04-20 03:41] VITALS: BP 155/72; PULSE 59; RESP 18; TEMP 36.7; O2SAT 95
[2023-04-20] MEDS: Acetaminophen 500 MG Tablet 1000 MG PO ×3 (05:00→21:38)
--- NOTE | 2023-04-20 06:00 | MRI_ITS ---
STUDY: MRI CERVICAL SPINE WITH AND WITHOUT CONTRAST REASON FOR EXAM: Male, 83 years old. Metastatic lesions, F/U ABNORMAL CT @ C7 TECHNIQUE: Standardized fat and water weighted pulse sequences were obtained in the sagittal and axial following administration of IV 9ml Clariscan. Motion artifact limits exam. COMPARISON: CT of the cervical spine dated April 18, 2023. FINDINGS: Diffusely heterogeneous marrow signal seen throughout the vertebral bodies with some small rounded areas of intermediate signal within the marrow spaces of vertebral bodies should be evaluated with nuclear medicine bone scan and correlated with hematologic values to ensure this does not represent a bone malignancy such as multiple myeloma or secondary causes such as metastatic disease. The lack of active marrow edema on the STIR sequence in these regions suggest this is a red marrow reactivation and heterogeneity related to the patient''s underlying hematologic status rather than malignancy, however, nuclear medicine whole body bone scan should be obtained to ensure there is no abnormal uptake. On the postcontrast study there is no enhancement of the previously described lytic lesions of the C7 vertebral body. Mild nonmasslike enhancement is present in the T1-T3 vertebral bodies. Normal foramen magnum and brainstem-cervical cord junction. Normal craniovertebral junction. Normal anterior atlantoaxial articulation. Normal odontoid process. Normal cervical lordosis. Normal vertebral bodies and posterior osseous elements. C2-3: Moderate disc space narrowing with diffuse disc desiccation and a broad-based disc herniation causing mild compression anterior aspect of the cord and mild central canal stenosis. Normal right neural foramen. Mild left foraminal stenosis secondary to facet and uncovertebral hypertrophy. C3-4: Moderate disc space narrowing with a shallow midline disc protrusion contributing to mild central canal stenosis. Moderate bilateral foraminal stenosis with nerve root compression due to uncovertebral and facet joint hypertrophy C4-5: Severe disc space narrowing with a minor diffuse disc bulge contributing to [id number] central canal stenosis and mass effect on the cord. Moderate left foraminal stenosis with nerve root compression due to uncovertebral hypertrophy. Normal left neural foramen. C5-6: Moderate to severe disc space narrowing with a diffuse disc bulge/spur complex causing mild compression anterior aspect of the cord and [id number] central canal stenosis. Moderate to severe bilateral foraminal stenosis with nerve root compression due to uncovertebral facet joint hypertrophy. C6-7: Moderate disc space narrowing with a minor disc spur complex. Moderate left foraminal stenosis with nerve root compression due to facet joint and uncovertebral hypertrophy. Normal right neural foramen. Normal central canal. C7-T1: Normal endplates. Diffuse disc desiccation. Normal disc height and morphology. Normal central canal and intervertebral neural foramina. Normal cervical cord. There is no demonstrated cervical cord syrinx cavity. Normal visualized soft tissue structures. MRI/Spine Cervical W/WO Contrast IMPRESSION: 1. Diffusely heterogeneous marrow signal seen throughout the vertebral bodies with some small rounded areas of intermediate signal within the marrow spaces of vertebral bodies should be evaluated with nuclear medicine bone scan and correlated with hematologic values to ensure this does not represent a bone malignancy such as multiple myeloma or secondary causes such as metastatic disease. 2. The lack of active marrow edema on the STIR sequence in these regions suggest this is a red marrow reactivation and heterogeneity related to the patient''s underlying hematologic status rather than malignancy, however, nuclear medicine whole body bone scan should be obtained to ensure there is no abnormal uptake. On the postcontrast study there is no enhancement of the previously described lytic lesions of the C7 vertebral body. Mild nonmasslike enhancement is present in the T1-T3 vertebral bodies. 3. Multilevel degenerative changes, as described above. Electronically Signed: Tam Antoine MD at 12:44 EDT ,
[2023-04-20 06:33] LABS: Basophil# 0.03 X10^3/uL; Basophil% 0.3 % (0-1); Eosinophil# 0.11 X10^3/uL; Hematocrit 26.4 % (40-54); Hemoglobin 8.9 g/dL (13.0-16.5); Lymphocyte % 11.1 % (19-41); Mean Corp Hgb Conc 33.7 g/dL (32-36); Mean Corpuscular Volume 100.8 fL (80-94); Mean Platelet Vol. 12.3 fl (6.2-12.0); Monocyte# 1.44 X10^3/uL; Monocyte% 13.3 % (0-10); NRBC Flagged by Analyzer 0 % (0-5); Neutrophil # 7.97 X10^3/uL (2.7-7.7); Neutrophil % 73.9 % (47-70); Platelet Count 129 K/mm3 (150-450); RBC Distribution Width CV 16.4 % (11.6-14.6); RBC Distribution Width SD 60.7 fl (35.1-43.9); Red Blood Count 2.62 M/mm3 (4.6-6.2); White Blood Count 10.8 K/mm3 (4.4-11.0)
[2023-04-20 06:57] LABS: International Normalized Ratio 1.4; Prothrombin Time (Protime)PT. 17.2 SECONDS (11.7-14.9)
[2023-04-20 07:11] LABS: Anion Gap 0 (5-15); BUN 21 mg/dL (7-18); BUN/Creat Ratio 26.2 RATIO (10-20); CPK Total, Creatine Kinase 703 U/L (39-308); Calcium,Total 7.6 mg/dL (8.5-10.1); Chloride 117 mmol/L (98-107); Cholesterol 139 mg/dL (200); EST Glomerular Filtration Rate 97 mL/min (>60); Est Glom Filt Rate - Afr Amer 118 mL/min (>60); Estimated Creatinine Clearance 44.19 ml/min; Glucose 96 mg/dL (74-106); High Density Lipoprotein 95 mg/dL; Magnesium 1.8 mg/dL (1.6-2.6); Phosphorus 1.8 mg/dL (2.5-4.9); Potassium 3.5 mmol/L (3.5-5.1); Sodium Level 142 mmol/L (136-145); Thyroid Stim Hormone (TSH) 7.61 uIU/mL (0.358-3.74); Triglycerides 47 mg/dL; Very Low Density Lipoprotein 9 mg/dL (5-40)
[2023-04-20] MEDS: traMADol 50 MG Tablet PO ×2 (08:14→21:41)
[2023-04-20] MEDS: Lisinopril 10 MG Tablet PO (08:23)
[2023-04-20 08:30] VITALS: RESP 18
[2023-04-20 09:45] VITALS: BP 168/77; PULSE 70; RESP 18; TEMP 36.8; O2SAT 98
[2023-04-20] MEDS: Gabapentin 100 MG Capsule 200 MG PO (10:48)
[2023-04-20] MEDS: Enoxaparin 40 MG/0.4 ML Syringe SC (10:48)
[2023-04-20] MEDS: Arthritis Pain Compound 60 CLICK TUBE TOPICAL ×2 (10:49→21:38)
--- NOTE | 2023-04-20 11:05 | EX.PCM.CONCC ---
Assessment & Plan Assessment/Plan (1) Lung nodule seen on imaging study: PLAN: I will defer recommendations on his lung nodules until I have a chance to review records from [facility]. It is likely that his lung nodules have been present and stable for years, but would like to verify this before recommending any further follow-up, interventions, or not. 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 (2) Pulmonary infiltrates on CXR: PLAN: Same. He was told that he had chronic pneumonia, 5 years ago. Currently he has no symptoms or signs of pneumonia or other respiratory infection. Further recommendations will await review of chronicity from his [facility] records. (3) Rhabdomyolysis: PLAN: The patient's CK is rapidly falling, as is his BUN, with excellent treatment from primary team. Creatinine has been normal. He is likely to make a complete recovery from his rhabdomyolysis episode without renal sequelae. (4) Frequent falls: PLAN: The patient has been gradually failing with progressive, severe weight loss of uncertain etiology, resulting in his bilateral sacral fractures. Hypothyroidism, cachexia with a BMI of 15 and hypophosphatemia could certainly contribute to his unsteadiness. - Discussed with primary team, they will supplement as clinically indicated - Begin treatment as inpatient, follow-up as outpatient. - Nutrition consult - Physical therapy, balance training, strength and transfer training - He may benefit from a short stay in a prison facility, his son Alcon said that he he can also live with Anastacio until he feels better. PLAN: Plan Discussed with Dr. Sawyer. Thank you for consulting [facility] on this pleasant gentleman HPI Consult Data Date of Consult: 04/20/23 HPI Narrative HPI Narrative: ANASTACIO BONILLA, is a 83 M who presents with rhabdomyolysis and mild MATTHIEU after falling x 2 at home. He was unable to get up after the second fall due to pain from bilateral sacral fractures, and remained on floor ~4 hours until children came over when he did not answer his phone. Circumstances of fall are described in ER note and repeated to me today by patient and family; it seems that there has not been a pattern of deterioration with the exception of weight loss from 130 to 100 lbs. Denies difficulty swallowing, cough or choking after eating, has a good appetite, and is able to get his own meals, eats BID. He had no respiratory symptoms, fever, chills, sweats, dysphagia, dyspnea, cough, sputum, chest pain or pressure, palpitations, pleurisy, dizziness or vision change. He denied choking on food or swallowing difficulties. No history of heart disease, heart murmur, syncope, stroke, TIA, seizure, arrhythmia. His past pulmonary history, per patient and family, is remarkable for approximately 5 bilateral lung nodules and chronic pneumonia which had symptoms of cough and fevers, worked up with multiple bronchoscopies and biopsies, then radiographic follow up at [facility] for ~5 years. He was discharged from that practice after the nodules were benign and stable for a period of time. He does not recall a specific diagnosis, never had treatment for them, and does not recall a prior neck (C7) lesion being noted. I am awaiting records from [facility] respiratory institute to review for more specific information. Past pulm history is also negative for PE, DVT, MISBAH, asthma, chest trauma or surgery, pneumonia, tuberculosis exposure, ptx. He does have occasional sinus infections (last winter), but does not take antibiotics for them, and does not remember the last time he was on antibiotics. No environmental allergies. He was a former <1/2 PPD smoker for 6 years (<3 pack-years), while in the [employer], quit completely in his 30s-40s. He denied significant exposures to radiation, asbestos, fumes, dust, smoke while in the [employer]. No active combat (served just prior to [place] War). 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 Denies ever having respiratory issues surrounding work. He exercises regularly, 6 days per week, and his son Alcon ([phone]) and daughter Sarahi ([phone]) corroborate that he drives, shops, does ADLs, etc. 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 [facility] Medical History (Updated 04/20/23 @ 11:[address] Ebenezer Sy MD) Frequent falls HTN (hypertension) Lung nodule seen on imaging study Pulmonary infiltrates on CXR Home Medications lisinopril 10 mg tablet 10 mg PO DAILY bp 04/29/18 [History Last Taken Unknown] gabapentin 100 mg capsule 200 mg PO DAILY nerve pain 04/18/23 [History Last Taken Unknown] Allergy/AdvReac Type Severity Reaction Status Date / Time No Known Allergies Allergy Verified 04/18/23 12:27 Family History (Updated 04/18/23 @ 15:[address] Nicholas Marroquin MD) Other Dementia Surgical History (Updated 04/18/23 @ 15:[address] Nicholas Marroquin MD) History of appendectomy History of splenectomy Social History Smoking Status: Former smoker ROS ROS Narrative 12 system review is remarkable for weight loss, and no symptoms of hypothyroidism or hypophosphatemia aside from generalized weakness Physical Exam Narrative Well-developed cachectic man with BMI of 15.2, awake and alert, in moderate discomfort with any motion due to bilateral sacral fractures. Otherwise able to feed himself move in bed and according to physical therapy has been up once today. HEENT: Normocephalic, atraumatic, sunken cheeks and eyes consistent with soft tissue loss and cachexia. Mucous membranes moist, articulate speech, Mallampati 1 airway, extraoculars are intact, anicteric, edentulous. Neck is supple with no thyromegaly adenopathy or mass. JVD is present bilaterally to the mandibles while laying at 30 degrees. Chest is clear bilaterally with no wheezes rales or rhonchi. Chest is symmetrical, normal diaphragmatic excursion, normal rise, able to speak complete sentences without difficulty. No consolidation, no dullness at the bases. Heart normal S1-S2 regular rhythm with a 1/6 systolic murmur heard throughout the precordium. Abdomen is soft, nontender, no masses palpable, positive normoactive bowel sounds just after lunch. not examined Extremities have no clubbing cyanosis or edema Neurologic exam is mostly nonfocal except for pain secondary to bilateral sacral fractures that limits motion. Medical Records Data Medical records narrative: Records from [facility] have been requested and are pending. This consultation will be completed after they have been reviewed. Presenting CPK was 2434, urinalysis negative, SPO2 94 to 95% on room air. Radiographs and/or reports personally reviewed: Radiography Diagnostic Testing: Clinical Impression(s) from Imaging Studies Brain CT? 04/18/23 13:02 IMPRESSION: Moderate cortical and central atrophy, moderate cerebellar atrophy. Severe chronic microvascular ischemic change. Moderate posterior right ethmoidal mucosal thickening. ? Electronically Signed: Mckay Lee MD, JD at 14:10 EDT , ? Cervical Spine CT? 04/18/23 13:02 IMPRESSION: No evidence of acute cervical spinal fracture or spondylolisthesis. There are 3 lytic lesions within the C7 vertebral body. Rule out neoplastic disease. Degenerative changes as above. ? Electronically Signed: Mckay Lee MD, JD at 14:16 EDT , Chest X-Ray? 04/18/23 13:02 IMPRESSION: Left upper lobe infiltrate versus mass. Medial right middle lobe infiltrate. COPD. ? Electronically Signed: Mckay Lee MD, JD at 14:22 EDT , Lumbar Spine CT? 04/18/23 13:02 IMPRESSION: Bilateral fracture of the sacrum in the region of the sacral ala. Focal acute angulation at the S2 segment. Additional findings above. ? Electronically Signed: Mckay Lee MD, JD at 14:21 EDT , ? Pelvis X-Ray? 04/18/23 13:02 IMPRESSION: ? Bilateral sacral fracture. ? Electronically Signed: Mckay Lee MD, JD at 14:23 EDT , Thoracic Spine CT? 04/18/23 13:02 IMPRESSION: Scoliosis and diffuse degenerative disc disease. No evidence of acute thoracic spinal fracture or spondylolisthesis. ? Electronically Signed: Mckay Lee MD, CRISTOBAL at 14:25 EDT , ? Rhythm Strip Rhythm Strip: Sinus Rhythm Rate: 58 Ectopy: None EKG Initial EKG: ? ? ? Attestation: I personally reviewed and interpreted this EKG as follows: ? ? ? Interpretation: Sinus Bradycardia ? ? ? Comments: Sinus bradycardia at a rate of 58 bpm Left axis deviation Normal ST segments Normal intervals ? ? ? Prior EKG tracings: not available for review ? ? ? Prior: No Prior Severe protein calorie malnutrition, BMI 15.2, severely underweight Lab / Micro Data Result Diagrams: 04/20/23 06:10 04/20/23 06:10 Labs: Laboratory Results - last 24 hr 04/20/23 06:10: WBC 10.8, RBC 2.62 L, Hgb 8.9 L, Hct 26.4 L, MCV 100.8 H, MCH 34.0 H, MCHC 33.7, RDW Std Deviation 60.7 H, RDW Coeff of [place] 16.4 H, Plt Count 129 L, MPV 12.3 H, Immature Gran % (Auto) 0.400, Neut % (Auto) 73.9 H, Lymph % (Auto) 11.1 L, [place] % (Auto) 13.3 H, Eos % (Auto) 1.0, Baso % (Auto) 0.3, Absolute Neuts (auto) 8.0 H, Absolute Lymphs (auto) 1.20, Nucleated RBC % 0 04/20/23 06:10: PT 17.2 H, INR 1.4 04/20/23 06:10: Sodium 142, Potassium 3.5, Chloride 117 H, Carbon Dioxide 25.0, Anion Gap 0 L, BUN 21 H, Creatinine 0.80, Estim Creat Clear Calc 44.19, Est GFR (MDRD) Af Amer 118, Est GFR (MDRD) Non-Af 97, BUN/Creatinine Ratio 26.2 H, Glucose 96, Calcium 7.6 L, Phosphorus 1.8 L, Magnesium 1.8, Triglycerides 47, Cholesterol 139, LDL Cholesterol 35, VLDL Cholesterol 9, HDL Cholesterol 95, TSH 7.61 H 04/20/23 06:10: Total Creatine Kinase 703 H Rhythm Strip Rhythm Strip: Sinus Rhythm Rate: 58 Ectopy: None Charges/Coding Visit Charges Office Visits / Consults: 25400 IP Consult L4
--- NOTE | 2023-04-20 13:22 | PCM.PROGNOTE ---
Subjective Subjective Patient seen and examined. His son was by his bedside. He had no active complaints. He still feels weak. Review fo systems is otherwise negative. He has remained hemodynamically stable. Objective Data Objective Data Vital Signs: Vital Signs Temp Pulse Resp BP Pulse Ox O2 Del Method 98.3 F 70 18 168/77 H 98 Room Air 04/20/23 09:45 04/20/23 09:45 04/20/23 09:45 04/20/23 09:45 04/20/23 09:45 04/20/23 09:45 Oxygen Delivery Method Room Air Weight: 100 lb 3.2 oz Body Mass Index (BMI) 15.2 Intake & Output: Intake and Output for Last 24 Hours 04/18/23 04/19/23 04/20/23 23:59 23:59 23:59 Intake Total 1120 / 1220 3575 / 3575 1505 / 1505 Output Total 900 / 900 900 / 900 Balance 1120 / 1070 2675 / 2675 605 / 605 Lab / Micro Data Result Diagrams: 04/20/23 06:10 04/20/23 06:10 Labs: Laboratory Results - last 24 hr 04/20/23 06:10: WBC 10.8, RBC 2.62 L, Hgb 8.9 L, Hct 26.4 L, MCV 100.8 H, MCH 34.0 H, MCHC 33.7, RDW Std Deviation 60.7 H, RDW Coeff of [place] 16.4 H, Plt Count 129 L, MPV 12.3 H, Immature Gran % (Auto) 0.400, Neut % (Auto) 73.9 H, Lymph % (Auto) 11.1 L, [place] % (Auto) 13.3 H, Eos % (Auto) 1.0, Baso % (Auto) 0.3, Absolute Neuts (auto) 8.0 H, Absolute Lymphs (auto) 1.20, Nucleated RBC % 0 04/20/23 06:10: PT 17.2 H, INR 1.4 04/20/23 06:10: Sodium 142, Potassium 3.5, Chloride 117 H, Carbon Dioxide 25.0, Anion Gap 0 L, BUN 21 H, Creatinine 0.80, Estim Creat Clear Calc 44.19, Est GFR (MDRD) Af Amer 118, Est GFR (MDRD) Non-Af 97, BUN/Creatinine Ratio 26.2 H, Glucose 96, Calcium 7.6 L, Phosphorus 1.8 L, Magnesium 1.8, Triglycerides 47, Cholesterol 139, LDL Cholesterol 35, VLDL Cholesterol 9, HDL Cholesterol 95, TSH 7.61 H 04/20/23 06:10: Total Creatine Kinase 703 H Radiography Diagnostic Testing: Radiology Impression Cervical Spine MRI 04/20/23 06:00 IMPRESSION: 1. Diffusely heterogeneous marrow signal seen throughout the vertebral bodies with some small rounded areas of intermediate signal within the marrow spaces of vertebral bodies should be evaluated with nuclear medicine bone scan and correlated with hematologic values to ensure this does not represent a bone malignancy such as multiple myeloma or secondary causes such as metastatic disease. 2. The lack of active marrow edema on the STIR sequence in these regions suggest this is a red marrow reactivation and heterogeneity related to the patient''s underlying hematologic status rather than malignancy, however, nuclear medicine whole body bone scan should be obtained to ensure there is no abnormal uptake. On the postcontrast study there is no enhancement of the previously described lytic lesions of the C7 vertebral body. Mild nonmasslike enhancement is present in the T1-T3 vertebral bodies. 3. Multilevel degenerative changes, as described above. Electronically Signed: Tam Antoine MD at 12:44 EDT Reading Location ID and State: [facility] / [place] , Service support , Rhythm Strip Rhythm Strip: Sinus Rhythm Rate: 58 Ectopy: None Physical Exam Const alert, oriented x3 and no apparent distress Constitutional Narrative: frail HEENT normocephalic, head/scalp atraumatic, moist oral mucous membranes and oropharynx normal Eyes PERRL and EOMs intact bilaterally Neck no lymphadenopathy and supple Lymph Lymphatic: no lymphadenopathy noted and no lymphedema noted Resp normal respiratory effort, normal air movement and clear to auscultation bilaterally Effort and Inspection: tachypneic Cardio regular rate, regular rhythm, S1 normal heart sound, S2 normal heart sound and no murmurs GI normal to inspection, nondistended, normoactive bowel sounds, soft to palpation, non-tender and non-distended Extremity normal capillary refill, no clubbing, cyanosis or edema and no calf tenderness General Extremity: no tenderness to palpation of joints or extremities Skin General Skin Exam: no breakdown Neuro CN's II-XII intact bilaterally, no focal motor deficits, no sensory deficits noted and deep tendon reflexes 2+ bilaterally Psych thought process normal, cooperative and affect normal Appearance: appropriate Assessment & Plan Assessment/Plan (1) Lung nodule seen on imaging study: (2) Rhabdomyolysis: (3) Frequent falls: PLAN: Plan # Debillity due to mechanical falls with resultant sacral fractures had fallen several times at home imaging done showed bilateral sacral fracture PT/OT on board. fall precautions #Acute rhabdomolysis improving. continue gentle hydration with IVF #Lung nodule CT chest showed left upper lobe nodule and airspace disease measuring 1.5cm abutting th right lower lobe posterior pleural based margin. THere was also diffuse demineralization of the osseous structure with no definite additional lytic lesions noted hypodensities within the C7 area. Pulmonology consulted. Patient and son tell me he had extensive work-up for similar lung findings at the [facility] about 7 to 8 years ago. He says he was told that all was clear he needed regular follow-up. Records from [facility] requested to review previous imaging I did discuss with pulmonology who reviewed patient and. Dr. Moya, while she awaits the records from [facility] to review, she does not think there be any further work-up. However a final plan will be predicated on the records from [facility] #Hypertension: On BP meds #Thrombocytopenia: We will monitor. Platelets at 129 today. We will continue monitoring closely as she is on Lovenox. DVT prophylaxis: Lovenox Charges/Coding Visit Charges Inpatient E&M: 11016 Subs Hosp L2
--- NOTE | 2023-04-20 13:30 | CASEMGMT ---
RN?CM?WINDOW SHADE INSTALLER?CM?to room to meet with patient for initial transition planning/care coordination?assessment.?RN?CM?introduced self and role at [facility].? Pt voices understanding and consents to?assessment?at this time.? Pt resting in bed in no distress at this time.? Pt is A/O at this time and answers all questions appropriately.?? Care providers, pharmacy, and demographics verified/updated at this time. PCP: Dr Ngo Specialists: none Preferred Pharmacy: [facility] Insurance: [email or web address] [facility] Prescription Benefit:? Living Will/HPOA:?Has both LW and HCPOA, who is his son, Andrez. LNOK: Son/POAAndrez (lives in [place]). Son, Alcon (lives in [place], [place]). Dtr, Heather (lives in [place]) Living Arrangements: Lives alone in split-level home w/one step to enter. Was indep w/ADL's and IADL's. He states had a fall last and since then has had a couple more falls. He states, Everything has been screwed up since Transportation:?Pt DME: ?States has the following DME:?built-in shower seat, grab bars, cane (has available but does not use @ baseline). Pt interested in info on medical alert system. MS3 MICHAEL RANDOLPH, Mary Beth, made aware. Pt states no need for further DME at this time.? HHC/SNF: No hx of either. Discussed discharge planning and SNF. Questions answered. Pt initially stated he wanted to go home, but then he stated, I haven't really though about it. He states he watns his children to make the decision and that he wishes to talk to them first. He states he does not want RN CM to call any of them until he talks w/them. He stated, They'll all be here tomorrow. RN AGUSTÍN explained the process re: acceptance of SNF and insurance approval and encouraged discussion w/family today so referral can be started as soon as possible, but pt again reiterated he does not want staff to call them yet. PLAN:??TBD. Possible SNF. Pt wishes to talk w/family before deciding. Janett GILLN?RN?CM
[2023-04-20 13:31] LABS: Pathologist Review Reviewed
--- NOTE | 2023-04-20 14:46 | CASEMGMT ---
RN CM into pt room, provided pt with a list of medical alert providers. Pt appreciative. Asked pt if he would be interested in a SNF list for when his family comes to discuss this with him so that he can make them aware of the options available, pt is agreeable to this. Updated SW.
[2023-04-20 14:49] VITALS: BP 158/70; PULSE 74; RESP 18; TEMP 36.2; O2SAT 96
--- NOTE | 2023-04-20 15:15 | CASEMGMT ---
Social Work Pt has advance directives in [facility] dated 2000. SW met with pt who confirms he still wishes to have a living will in place. This document placed on pt chart. Pt HCPOA lists 1. Alcon, son 2. Andrez, son 3. Heather Rodriguez, daughter. Pt states he has made a HCPOA more recently than 2000 and it names his son Andrez. Pt states he will bring in updated HCPOA. YEFRI Joel
--- NOTE | 2023-04-20 15:21 | CASEMGMT ---
Social Work SW received referral for possible SNF. Pt would like to speak with family first. SW met with pt and introduced self and role of SW. A list of SNF providers including quality and resource use data and consistent with the patient?s preferred geographic region, medical needs, and insurance network were provided from the [employer] Guide. SW to follow up tomorrow after pt has spoke with family. YEFRI Joel
[2023-04-20 20:45] VITALS: BP 156/84; PULSE 66; RESP 16; TEMP 37; O2SAT 96
[2023-04-21] MEDS: 0.9% Normal Saline 1,000 ML 100 ML IV ×3 (00:12→21:06)
[2023-04-21 02:30] VITALS: BP 143/81; PULSE 61; RESP 16; TEMP 37.1; O2SAT 98
[2023-04-21] MEDS: Acetaminophen 500 MG Tablet 1000 MG PO ×3 (05:42→21:07)
[2023-04-21 06:54] LABS: Absolute Lymphocyte Count 1.28 X10^3/uL (0.83-4.51); Basophil# 0.04 X10^3/uL; Basophil% 0.3 % (0-1); Eosinophil# 0.23 X10^3/uL; Hematocrit 28.7 % (40-54); Hemoglobin 9.5 g/dL (13.0-16.5); Lymphocyte # 1.28 X10^3/ul (0.83-4.51); Lymphocyte % 10.9 % (19-41); Mean Corp Hgb Conc 33.1 g/dL (32-36); Mean Corpuscular Hgb 33.9 pg (27.0-32.0); Mean Corpuscular Volume 102.5 fL (80-94); Mean Platelet Vol. 12.2 fl (6.2-12.0); Monocyte# 1.14 X10^3/uL; Monocyte% 9.7 % (0-10); NRBC Flagged by Analyzer 0 % (0-5); Neutrophil # 8.98 X10^3/uL (2.7-7.7); Neutrophil % 76.7 % (47-70); Platelet Count 145 K/mm3 (150-450); RBC Distribution Width CV 16.8 % (11.6-14.6); RBC Distribution Width SD 63.3 fl (35.1-43.9); White Blood Count 11.7 K/mm3 (4.4-11.0)
[2023-04-21 07:16] LABS: Anion Gap 2 (5-15); BUN 15 mg/dL (7-18); BUN/Creat Ratio 19.6 RATIO (10-20); Calcium,Total 8.4 mg/dL (8.5-10.1); Chloride 115 mmol/L (98-107); Creatinine, Serum 0.76 mg/dL (0.70-1.30); EST Glomerular Filtration Rate 103 mL/min (>60); Est Glom Filt Rate - Afr Amer 125 mL/min (>60); Estimated Creatinine Clearance 35.35 ml/min; Glucose 94 mg/dL (74-106); Potassium 3.9 mmol/L (3.5-5.1); Sodium Level 145 mmol/L (136-145)
[2023-04-21] MEDS: traMADol 50 MG Tablet PO ×2 (08:01→16:06)
[2023-04-21 08:03] VITALS: BP 166/88; PULSE 59; RESP 16; TEMP 36.5; O2SAT 98
[2023-04-21 09:00] VITALS: RESP 18
[2023-04-21] MEDS: Gabapentin 100 MG Capsule 200 MG PO (09:32)
[2023-04-21] MEDS: Arthritis Pain Compound 60 CLICK TUBE TOPICAL ×2 (09:32→21:07)
[2023-04-21] MEDS: Enoxaparin 40 MG/0.4 ML Syringe SC (09:32)
[2023-04-21] MEDS: Lisinopril 10 MG Tablet PO (09:32)
--- NOTE | 2023-04-21 10:09 | PN_ITS ---
Subjective Subjective Patient seen and examined. He complained of feeling quite weak today. He said he had a lot of pain in his lower extremities as a result of his transfer out of his bed into the chair. Review of systems otherwise negative. He remains hemodynamically stable. Objective Data Objective Data Vital Signs: Vital Signs Temp Pulse Resp BP Pulse Ox O2 Del Method 97.7 F L 59 L 16 166/88 H 98 Room Air 04/21/23 08:03 04/21/23 08:03 04/21/23 08:03 04/21/23 08:03 04/21/23 08:03 04/21/23 08:03 Oxygen Delivery Method Room Air Weight: 100 lb 3.2 oz Body Mass Index (BMI) 15.2 Intake & Output: Intake and Output for Last 24 Hours 04/19/23 04/20/23 04/21/23 23:59 23:59 23:59 Intake Total 3575 / 3575 3855 / 3855 941.67 / 941.67 Output Total 900 / 900 1350 / 1700 600 / 600 Balance 2675 / 2675 2505 / 2155 341.67 / 341.67 Lab / Micro Data Result Diagrams: 04/21/23 06:25 04/21/23 06:25 Labs: Laboratory Results - last 24 hr 04/19/23 04:47: Diff Path Review Reviewed 04/21/23 06:25: WBC 11.7 H, RBC 2.80 L, Hgb 9.5 L, Hct 28.7 L, MCV 102.5 H, MCH 33.9 H, MCHC 33.1, RDW Std Deviation 63.3 H, RDW Coeff of Apolonia 16.8 H, Plt Count 145 L, MPV 12.2 H, Immature Gran % (Auto) 0.400, Neut % (Auto) 76.7 H, Lymph % (Auto) 10.9 L, [place] % (Auto) 9.7, Eos % (Auto) 2.0, Baso % (Auto) 0.3, Absolute Neuts (auto) 9.0 H, Absolute Lymphs (auto) 1.28, Nucleated RBC % 0 04/21/23 06:25: Sodium 145, Potassium 3.9, Chloride 115 H, Carbon Dioxide 28.0, Anion Gap 2 L, BUN 15, Creatinine 0.76, Estim Creat Clear Calc 35.35, Est GFR (MDRD) Af Amer 125, Est GFR (MDRD) Non-Af 103, BUN/Creatinine Ratio 19.6, Glucose 94, Calcium 8.4 L Radiography Diagnostic Testing: Radiology Impression Cervical Spine MRI 04/20/23 06:00 IMPRESSION: 1. Diffusely heterogeneous marrow signal seen throughout the vertebral bodies with some small rounded areas of intermediate signal within the marrow spaces of vertebral bodies should be evaluated with nuclear medicine bone scan and correlated with hematologic values to ensure this does not represent a bone malignancy such as multiple myeloma or secondary causes such as metastatic disease. 2. The lack of active marrow edema on the STIR sequence in these regions suggest this is a red marrow reactivation and heterogeneity related to the patient''s underlying hematologic status rather than malignancy, however, nuclear medicine whole body bone scan should be obtained to ensure there is no abnormal uptake. On the postcontrast study there is no enhancement of the previously described lytic lesions of the C7 vertebral body. Mild nonmasslike enhancement is present in the T1-T3 vertebral bodies. 3. Multilevel degenerative changes, as described above. Electronically Signed: Tam Antoine MD at 12:44 EDT , Rhythm Strip Rhythm Strip: Sinus Rhythm Rate: 58 Ectopy: None Physical Exam Const alert, oriented x3 and no apparent distress Constitutional Narrative: frail HEENT normocephalic, head/scalp atraumatic, moist oral mucous membranes and oropharynx normal Eyes PERRL and EOMs intact bilaterally Neck no lymphadenopathy and supple Lymph Lymphatic: no lymphadenopathy noted and no lymphedema noted Resp normal respiratory effort, normal air movement and clear to auscultation bilaterally Effort and Inspection: tachypneic Cardio regular rate, regular rhythm, S1 normal heart sound, S2 normal heart sound and no murmurs GI normal to inspection, nondistended, normoactive bowel sounds, soft to palpation, non-tender and non-distended Extremity normal capillary refill, no clubbing, cyanosis or edema and no calf tenderness General Extremity: no tenderness to palpation of joints or extremities Skin General Skin Exam: no breakdown Neuro CN's II-XII intact bilaterally, no focal motor deficits, no sensory deficits noted and deep tendon reflexes 2+ bilaterally Psych thought process normal, cooperative and affect normal Appearance: appropriate Assessment & Plan Assessment/Plan (1) Lung nodule seen on imaging study: (2) Rhabdomyolysis: (3) Frequent falls: PLAN: Plan # Debillity due to mechanical falls with resultant sacral fractures * had fallen several times at home * imaging done showed bilateral sacral fracture * PT/OT on board. * fall precautions * * #Acute rhabdomolysis * improving.CPK has trended down significantly. * continue gentle hydration with IVF * * #Lung nodule * CT chest showed left upper lobe nodule and airspace disease measuring 1.5cm abutting th right lower lobe posterior pleural based margin. THere was also diffuse demineralization of the osseous structure with no definite additional lytic lesions noted hypodensities within the C7 area. * Pulmonology consulted. Patient and son tell me he had extensive work-up for similar lung findings at the [facility] about 7 to 8 years ago. He says he was told that all was clear he needed regular follow-up. * Records from [facility] requested to review previous imaging * I did discuss with pulmonology who reviewed patient and. Dr. Sy, while she awaits the records from [facility] to review, she does not think there be any further work-up. However a final plan will be predicated on the records from [facility] * * #Hypertension: On BP lisinopril #Thrombocytopenia: We will monitor. Platelets improved to 145 today. We will continue monitoring closely as he is on Lovenox. DVT prophylaxis: Lovenox Dispositiion: Await physical therapy evaluation. Patient is quite debilitated but may benefit from short-term placement. Case management on board to help facilitate discharge. Charges/Coding Visit Charges Inpatient E&M: 57529 Subs Hosp L2
--- NOTE | 2023-04-21 14:23 | PN.CC_ITS ---
Assessment & Plan Assessment/Plan (1) Lung nodule seen on imaging study: PLAN: Awaiting old [facility] records. I will complete this consultation once those records are available for my review and comparison with current data. (2) Pulmonary infiltrates on CXR: PLAN: Same, no new recommendations. White count remains mildly elevated, patient afebrile without symptoms of acute pneumonia. Agree with holding antibiotics at this time. (3) Rhabdomyolysis: PLAN: Renal function has normalized. Recommend supplementing phosphate, and repeat phosphate lab. (4) Sacral fracture, closed: PLAN: Conservative management. PLAN: Plan I will follow-up again once the [facility] records are available to inform his pulmonary management strategy. 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 Therefore, if he is ready to be discharged I recommend not delaying discharge while awaiting these records, he can continue to follow-up with them as an outpatient for his pulmonary nodules, which are asymptomatic, not acute and not part of this admission's active issues. Subjective Subjective Patient feels about the today, maybe with a little more pain now after out of bed to chair and physical therapy after bilateral sacral fractures. Is able to walk with assistance. Objective Data Objective Data Limited visit today due to awaiting old records from [facility] to compare old films and data against current evaluation of lung nodules. He is stable from a respiratory viewpoint. Vital Signs: Vital Signs Temp Pulse Resp BP Pulse Ox O2 Del Method 97.7 F L 59 L 16 166/88 H 98 Room Air 04/21/23 08:03 04/21/23 08:03 04/21/23 08:03 04/21/23 08:03 04/21/23 08:03 04/21/23 08:03 Oxygen Delivery Method Room Air Weight: 100 lb 3.2 oz Body Mass Index (BMI) 15.2 Intake & Output: Intake and Output for Last 24 Hours 04/19/23 04/20/23 04/21/23 23:59 23:59 23:59 Intake Total 3575 / 3575 3855 / 3855 2691.67 / 2691.67 Output Total 900 / 900 1350 / 1700 950 / 950 Balance 2675 / 2675 2505 / 2155 1741.67 / 1741.67 Lab / Micro Data Attestation: I reviewed the patient's lab results. Result Diagrams: 04/21/23 06:25 04/21/23 06:25 Labs: Laboratory Results - last 24 hr 04/21/23 06:25: WBC 11.7 H, RBC 2.80 L, Hgb 9.5 L, Hct 28.7 L, MCV 102.5 H, MCH 33.9 H, MCHC 33.1, RDW Std Deviation 63.3 H, RDW Coeff of Apolonia 16.8 H, Plt Count 145 L, MPV 12.2 H, Immature Gran % (Auto) 0.400, Neut % (Auto) 76.7 H, Lymph % (Auto) 10.9 L, [place] % (Auto) 9.7, Eos % (Auto) 2.0, Baso % (Auto) 0.3, Absolute Neuts (auto) 9.0 H, Absolute Lymphs (auto) 1.28, Nucleated RBC % 0 04/21/23 06:25: Sodium 145, Potassium 3.9, Chloride 115 H, Carbon Dioxide 28.0, Anion Gap 2 L, BUN 15, Creatinine 0.76, Estim Creat Clear Calc 35.35, Est GFR (MDRD) Af Amer 125, Est GFR (MDRD) Non-Af 103, BUN/Creatinine Ratio 19.6, Glucose 94, Calcium 8.4 L Rhythm Strip Rhythm Strip: Sinus Rhythm Rate: 58 Ectopy: None Physical Exam Narrative Unchanged from yesterday. HEENT mucous membranes moist, good appetite Lungs are diminished but clear bilaterally except for a few coarse crackles at the left base Cardiac regular S1-S2 with no murmurs Extremities have no clubbing cyanosis or edema Skin is warm and dry Neuro is awake alert and oriented x3, verbal, articulate, grossly nonfocal. Charges/Coding Visit Charges Inpatient E&M: 24789 Subs Hosp L1
--- NOTE | 2023-04-21 15:21 | CASEMGMT ---
Social Work SW received message from pt's dgt in law Sarahi requesting placement at TCU. SW met with pt and attempted to discuss discharge planning. Pt refusing to discuss discharge at this time as he is too painful. SW requested to call pt dgt in law and pt gave permission. Phone call to Sarahi who states pt lives at home alone and is too weak to return home. Sarahi requesting TCU placement. Phone call to Lia in TCU and bed is available on . LISBETH met with pt and carlos enrique Rondon in room and discussed discharge plan and Sarahi's request for TCU. Pt and pt carlos enrique Rondon agreeable to placement at TCU. Referral made and they are able to accept pt. Physician notified. Precert will need to be obtained prior to discharge. Plan: TCU, pending precert YEFRI Joel
[2023-04-21] MEDS: Polyethylene Glycol 3350 17 GM PACKET PO (15:58)
[2023-04-21] MEDS: Senna Tablet 1 TABLET PO (15:58)
[2023-04-21 16:34] VITALS: BP 151/81; PULSE 63; RESP 16; TEMP 36.8; O2SAT 97
[2023-04-21 20:30] VITALS: BP 153/79; PULSE 62; RESP 16; TEMP 37.2; O2SAT 96
[2023-04-22 02:30] VITALS: BP 162/93; PULSE 62; RESP 16; TEMP 36.7; O2SAT 96
[2023-04-22] MEDS: traMADol 50 MG Tablet PO ×2 (05:32→12:06)
[2023-04-22] MEDS: Acetaminophen 500 MG Tablet 1000 MG PO ×3 (05:33→22:42)
[2023-04-22 06:07] LABS: Absolute Lymphocyte Count 1.51 X10^3/uL (0.83-4.51); Absolute Neutrophil Count 7.9 X10^3/uL (2.0-7.7); Basophil# 0.05 X10^3/uL; Basophil% 0.5 % (0-1); Eosinophil# 0.36 X10^3/uL; Eosinophils% 3.3 % (0-5); Hematocrit 29.2 % (40-54); Hemoglobin 9.5 g/dL (13.0-16.5); Lymphocyte # 1.51 X10^3/ul (0.83-4.51); Lymphocyte % 13.8 % (19-41); Mean Corp Hgb Conc 32.5 g/dL (32-36); Mean Corpuscular Hgb 33.2 pg (27.0-32.0); Mean Corpuscular Volume 102.1 fL (80-94); Mean Platelet Vol. 11.7 fl (6.2-12.0); Monocyte# 1.03 X10^3/uL; Monocyte% 9.4 % (0-10); NRBC Flagged by Analyzer 0 % (0-5); Neutrophil # 7.92 X10^3/uL (2.7-7.7); Neutrophil % 72.5 % (47-70); Platelet Count 154 K/mm3 (150-450); RBC Distribution Width CV 16.8 % (11.6-14.6); RBC Distribution Width SD 62.7 fl (35.1-43.9); Red Blood Count 2.86 M/mm3 (4.6-6.2); White Blood Count 10.9 K/mm3 (4.4-11.0)
[2023-04-22] MEDS: 0.9% Normal Saline 1,000 ML 100 ML IV ×2 (06:23→16:00)
[2023-04-22 06:36] LABS: Anion Gap 2 (5-15); BUN 13 mg/dL (7-18); BUN/Creat Ratio 18.7 RATIO (10-20); Calcium,Total 7.9 mg/dL (8.5-10.1); Chloride 115 mmol/L (98-107); EST Glomerular Filtration Rate 115 mL/min (>60); Est Glom Filt Rate - Afr Amer 139 mL/min (>60); Estimated Creatinine Clearance 35.35 ml/min; Glucose 92 mg/dL (74-106); Potassium 3.7 mmol/L (3.5-5.1); Sodium Level 143 mmol/L (136-145)
[2023-04-22 08:30] VITALS: BP 166/87; PULSE 57; RESP 16; TEMP 37; O2SAT 98
[2023-04-22] MEDS: Senna Tablet 1 TABLET PO (08:58)
[2023-04-22] MEDS: Polyethylene Glycol 3350 17 GM PACKET PO (08:58)
[2023-04-22] MEDS: Arthritis Pain Compound 60 CLICK TUBE TOPICAL ×2 (08:58→22:41)
[2023-04-22] MEDS: Lisinopril 10 MG Tablet PO (08:58)
[2023-04-22] MEDS: Enoxaparin 40 MG/0.4 ML Syringe SC (08:58)
[2023-04-22] MEDS: Gabapentin 100 MG Capsule 200 MG PO (09:07)
--- NOTE | 2023-04-22 10:53 | CASEMGMT ---
Social Work SW met with pt, pt son Andrez, pt dgt Heather. SW explained that pt has been accepted to TCU and precert has been started. Pt cannot discharge until precert has been obtained. Pt and family agreeable to d/c plan. SW spoke with pt and family regarding HCPOA. SW explained that carlos enrique Rondon is HCPOA from document on file dated 2000. Family confirms this is still current. Plan: TCU, pending precert YEFRI Joel
--- NOTE | 2023-04-22 14:48 | PN_ITS ---
Subjective Subjective Patient seen and examined. His son and daughter were by his bedside. He still complained of significant pain in his lower back He thinks he may have been aggravated by his be moving from the bed to the chair. Still feels weak and debilitated. He denies any fever, chills, or any other symptoms. Review of systems otherwise negative. He has remained hemodynamically stable. Objective Data Objective Data Vital Signs: Vital Signs Temp Pulse Resp BP Pulse Ox O2 Del Method 98.6 F 57 L 16 166/87 H 98 Room Air 04/22/23 08:30 04/22/23 08:30 04/22/23 08:30 04/22/23 08:30 04/22/23 08:30 04/22/23 10:00 Oxygen Delivery Method Room Air Weight: 100 lb 3.2 oz Body Mass Index (BMI) 15.2 Intake & Output: Intake and Output for Last 24 Hours 04/20/23 04/21/23 04/22/23 23:59 23:59 23:59 Intake Total 3855 / 3855 4441.67 / 4441.67 1128.33 / 1128.33 Output Total 1350 / 1700 1350 / 1600 1100 / 1100 Balance 2505 / 2155 3091.67 / 2841.67 28.33 / 28.33 Lab / Micro Data Result Diagrams: 04/22/23 05:50 04/22/23 05:50 Labs: Laboratory Results - last 24 hr 04/22/23 05:50: WBC 10.9, RBC 2.86 L, Hgb 9.5 L, Hct 29.2 L, MCV 102.1 H, MCH 33.2 H, MCHC 32.5, RDW Std Deviation 62.7 H, RDW Coeff of Apolonia 16.8 H, Plt Count 154, MPV 11.7, Immature Gran % (Auto) 0.500, Neut % (Auto) 72.5 H, Lymph % (Auto) 13.8 L, [place] % (Auto) 9.4, Eos % (Auto) 3.3, Baso % (Auto) 0.5, Absolute Neuts (auto) 7.9 H, Absolute Lymphs (auto) 1.51, Nucleated RBC % 0 04/22/23 05:50: Sodium 143, Potassium 3.7, Chloride 115 H, Carbon Dioxide 26.0, Anion Gap 2 L, BUN 13, Creatinine 0.70, Estim Creat Clear Calc 35.35, Est GFR (MDRD) Af Amer 139, Est GFR (MDRD) Non-Af 115, BUN/Creatinine Ratio 18.7, Glucose 92, Calcium 7.9 L Rhythm Strip Rhythm Strip: Sinus Rhythm Rate: 58 Ectopy: None Physical Exam Const alert, oriented x3 and no apparent distress Constitutional Narrative: frail HEENT normocephalic, head/scalp atraumatic, moist oral mucous membranes and oropharynx normal Eyes PERRL and EOMs intact bilaterally Neck no lymphadenopathy and supple Lymph Lymphatic: no lymphadenopathy noted and no lymphedema noted Resp normal respiratory effort, normal air movement and clear to auscultation bilaterally Cardio regular rate, regular rhythm, S1 normal heart sound, S2 normal heart sound and no murmurs GI normal to inspection, nondistended, normoactive bowel sounds, soft to palpation, non-tender and non-distended Extremity normal capillary refill, no clubbing, cyanosis or edema and no calf tenderness General Extremity: no tenderness to palpation of joints or extremities Skin General Skin Exam: no breakdown Neuro CN's II-XII intact bilaterally, no focal motor deficits, no sensory deficits noted and deep tendon reflexes 2+ bilaterally Psych thought process normal, cooperative and affect normal Appearance: appropriate Assessment & Plan Assessment/Plan (1) Lung nodule seen on imaging study: (2) Rhabdomyolysis: (3) Frequent falls: PLAN: Plan # Debillity due to mechanical falls with resultant sacral fractures * had fallen several times at home * imaging done showed bilateral sacral fracture. CT lumbar spine showed bilateral sacral fracture ad also showed severe loss of disc height of L1-2, L2-3, L3-4 and L4-5 as well as L5-S1 with moderate bilateral facet athropathy and moderate to severe bilateral foraminal encroachment. * thoracic spine also showed scoliosis and diffuse dgenerative disc disease * PT/OT on board. * fall precautions * pain management consulted for pain shot if possible to help with back pain * #Acute rhabdomolysis * improving. CPK has trended down significantly. * largely resolved. Will monitor * #Lung nodule * CT chest showed left upper lobe nodule and airspace disease measuring 1.5cm abutting th right lower lobe posterior pleural based margin. THere was also diffuse demineralization of the osseous structure with no definite additional lytic lesions noted hypodensities within the C7 area. * Pulmonology consulted. Patient and son tell me he had extensive work-up for similar lung findings at the [facility] about 7 to 8 years ago. He says he was told that all was clear he needed regular follow-up. * Records from [facility] requested to review previous imaging * I did discuss with pulmonology who reviewed patient and. Dr. yS, while she awaits the records from [facility] to review, she does not think there be any fu rther work-up. However a final plan will be predicated on the records from [facility] * * #Hypertension: On BP lisinopril #Thrombocytopenia: resolved. Up to 154 today. Will monitor DVT prophylaxis: Lovenox Disposition: Await physical therapy evaluation. Patient is quite debilitated and will benefit from short-term placement. Case management on board to help facilitate discharge. Charges/Coding Visit Charges Inpatient E&M: 53168 Subs Hosp L2
[2023-04-22 15:30] VITALS: BP 158/74; PULSE 66; RESP 16; TEMP 36.8; O2SAT 97
[2023-04-22 20:40] VITALS: BP 159/80; PULSE 61; RESP 18; TEMP 36.8; O2SAT 94
[2023-04-23] VITALS (11 sets, daily range): BP systolic 135–185; BP diastolic 73–86; PULSE 55–80; RESP 16–18; TEMP 36.6–37.2; O2SAT 94–98
[2023-04-23] MEDS: 0.9% Normal Saline 1,000 ML 100 ML IV ×2 (01:36→11:08)
[2023-04-23] MEDS: traMADol 50 MG Tablet PO ×2 (02:43→18:44)
[2023-04-23 06:15] LABS: Absolute Lymphocyte Count 1.18 X10^3/uL (0.83-4.51); Absolute Neutrophil Count 7.1 X10^3/uL (2.0-7.7); Basophil# 0.03 X10^3/uL; Basophil% 0.3 % (0-1); Eosinophil# 0.48 X10^3/uL; Eosinophils% 4.9 % (0-5); Hematocrit 27.3 % (40-54); Hemoglobin 9.1 g/dL (13.0-16.5); Lymphocyte # 1.18 X10^3/ul (0.83-4.51); Lymphocyte % 12.1 % (19-41); Mean Corp Hgb Conc 33.3 g/dL (32-36); Mean Corpuscular Hgb 33.3 pg (27.0-32.0); Mean Platelet Vol. 11.8 fl (6.2-12.0); Monocyte% 9.2 % (0-10); NRBC Flagged by Analyzer 0 % (0-5); Neutrophil % 73.1 % (47-70); Platelet Count 172 K/mm3 (150-450); RBC Distribution Width CV 16.7 % (11.6-14.6); RBC Distribution Width SD 60.7 fl (35.1-43.9); Red Blood Count 2.73 M/mm3 (4.6-6.2); White Blood Count 9.7 K/mm3 (4.4-11.0)
[2023-04-23] MEDS: Acetaminophen 500 MG Tablet 1000 MG PO ×2 (06:31→18:41)
[2023-04-23 07:03] LABS: Anion Gap 4 (5-15); BUN 12 mg/dL (7-18); Calcium,Total 7.8 mg/dL (8.5-10.1); Chloride 113 mmol/L (98-107); Creatinine, Serum 0.63 mg/dL (0.70-1.30); EST Glomerular Filtration Rate 128 mL/min (>60); Est Glom Filt Rate - Afr Amer 155 mL/min (>60); Estimated Creatinine Clearance 35.35 ml/min; Glucose 78 mg/dL (74-106); Potassium 3.7 mmol/L (3.5-5.1); Sodium Level 141 mmol/L (136-145)
--- NOTE | 2023-04-23 07:59 | PCA ---
this administrative secretary received records from [facility] and placed on patient chart
--- NOTE | 2023-04-23 09:44 | CASEMGMT ---
Social Work SW spoke w/Lia in TCU, she did attain precert. SW spoke w/pt's three children this morning(Alcon, Andrez and Heather), explained that pt was approved by insurance to go to TCU. Pt's children had many questions regarding insurance and TCU. SW educated children on these topics, explained length of stay for TCU is 30 days or less. SW also explained this is subject to insurance approving. SW did also explain if pt would need longer, they would have the option to private pay in TCU for a short time, or transfer pt to a SNF in the community private pay. SW explained that they will meet with a team in TCU and will have a social media editor there as well to help with all discharge planning. Family states understanding. They would like to see TCU, SW spoke w/Lia in TCU and she will show them around. SW brought family to TCU so they can have a tour. SW let Lia in TCU know that pt is not ready today. SW also spoke again w/pt and son Andrez, let them know pt will not be going to TCU today, possibly tomorrow. Both state understanding. SW will continue to follow. STAN Sosa
--- NOTE | 2023-04-23 12:16 | PN.CC_ITS ---
Assessment & Plan Assessment/Plan (1) Lung nodule seen on imaging study: PLAN: Review of his [facility] records and comparison with his current CT scan showed that the left upper lobe nodule has been well-followed for 5 years, bronchoscoped x2 including EBUS at [facility] main [place], biopsied and found to be be nign. This lesion has shrunk from 1.2 cm to 0.8 cm. since 2019, and does not require further radiographic follow-up. A PET scan September 2015 showed that the lesion had an SVU of 2.1, and SPU of less than 2.0 is benign > 90% of the time, and an SVU of greater than 3 is cancerous > 90% of the time. He elected to follow the lesion closely, and over time it proved benign. However, there is a new 1 x 2 cm posterior RLL Nodule, noncalcified with indistinct edges, seen at the right lower lobe abutting the pleura. This likely represents a small area of contusion after the patient's fall, which was with sufficient force to break his sacrum bilaterally. Nothing needs to be done about this lesion at present, but would obtain a follow-up CT scan in 3 months or sooner if the patient has respiratory symptoms. Currently he has no respiratory symptoms hemoptysis cough wheeze or fever. This could either continue through our clinic, or to Chai Oshea MD of [facility], who has the previous films dating back from 2014 for comparison. (2) Pulmonary infiltrates on CXR: PLAN: The patient has a chronic area of bronchiectasis in the right middle lobe, which has been stable radiographically for years. He had a right middle lobe pneumonia in that area in February 2015 along with a left lower lobe infiltrate man aged and completely resolved at [facility]. (3) Sacral fracture, closed: PLAN: Per hospitalist, and in my previous note PLAN: Plan Arrange further radiographic follow-up of his posterior right lower lobe nodule, which is new. Nothing further need be done about the old left upper lobe nodule or his area of right middle lobe bronchiectasis. Recommend outpatient pulmonary function testing, he generally has no pulmonary symptoms and likely has mild emphysema. No inhalers are recommended at this time. Care time spent with patient at bedside, review of over 100 pages of documentation, lab results, radiology and other test results, discussion with colleagues and ancillary staff, clinical management of patient, and updating his son from [place] if applicable, was >90 minutes. [place] [address] Subjective Subjective Patient feels about the same, still complaining of expected pain from his bilateral sacral fractures, last BM was in the bed, walking with difficulty due to pain. Objective Data Objective Data [facility] medical record data was received by fax last night. Over 100 pages of data were reviewed for today's note. In summary: - The patient had a left upper lobe lesion discovered on CT scan of the chest 10/05/2015 that was not present in January 2015 the patient had an initial bronchoscopy 01/31/2015 with 6 transbronchial biopsies and normal endobronchial anatomy noted. The pathology was negative for malignancy. This was followed by an endobronchial ultrasound in January 2015 which also showed no malignancy. -The current chest CT scan at [facility] shows that the left upper lobe lesion has shrunk from 1.2cm to 0.8 cm. - The patient subsequently had recommended radiographic follow-up with CT scans for 5 years which showed no change in the left upper lobe 1.2 cm lesion in February 2016, July 2016, January 2017, January 2018 and January 2019. The patient was therefore discharged Chai Oshea MD of [facility] pulmonary practice at [facility]. It was noted that he could have follow-up imaging if necessary for symptom changes or other respiratory issues. - The patient has known areas of bronchiectasis in the right middle lobe. There was a scar and a 1.1 cm nodule in the right upper lobe noted in 2014 which is also been stable radiographically. - There are bibasilar pulmonary nodules noted and have been unchanged with no adenopathy, all less than 1 cm on the [facility] series. Comparison of the CT reports at [facility] with the current data shows a new noncalcified right lower lobe posterior nodule of 1x2 cm, with indistinct edges which may be a area of contusion after his fall. However it should be followed to radiographic resolution. Vital Signs: Vital Signs Temp Pulse Resp BP Pulse Ox O2 Del Method 98.1 F 55 L 16 174/80 H 94 Room Air 04/23/23 08:33 04/23/23 08:33 04/23/23 08:33 04/23/23 08:33 04/23/23 08:33 04/23/23 08:33 Oxygen Delivery Method Room Air Weight: 100 lb 3.2 oz Body Mass Index (BMI) 15.2 Intake & Output: Intake and Output for Last 24 Hours 04/21/23 04/22/23 04/23/23 23:59 23:59 23:59 Intake Total 4441.67 / 4441.67 2350.00 / 2350.00 2113.33 / 2113.33 Output Total 1350 / 1600 1500 / 1500 300 / 300 Balance 3091.67 / 2841.67 850.00 / 850.00 1813.33 / 1813.33 Lab / Micro Data Result Diagrams: 04/23/23 06:00 04/23/23 06:00 Labs: Laboratory Results - last 24 hr 04/23/23 06:00: WBC 9.7, RBC 2.73 L, Hgb 9.1 L, Hct 27.3 L, MCV 100.0 H, MCH 33.3 H, MCHC 33.3, RDW Std Deviation 60.7 H, RDW Coeff of Apolonia 16.7 H, Plt Count 172, MPV 11.8, Immature Gran % (Auto) 0.400, Neut % (Auto) 73.1 H, Lymph % (Auto) 12.1 L, [place] % (Auto) 9.2, Eos % (Auto) 4.9, Baso % (Auto) 0.3, Absolute Neuts (auto) 7.1, Absolute Lymphs (auto) 1.18, Nucleated RBC % 0 04/23/23 06:00: Sodium 141, Potassium 3.7, Chloride 113 H, Carbon Dioxide 24.0, Anion Gap 4 L, BUN 12, Creatinine 0.63 L, Estim Creat Clear Calc 35.35, Est GFR (MDRD) Af Amer 155, Est GFR (MDRD) Non-Af 128, BUN/Creatinine Ratio 19.0, Glucose 78, Calcium 7.8 L Radiography Diagnostic Testing: As above Rhythm Strip Rhythm Strip: Sinus Rhythm Rate: 58 Ectopy: None Physical Exam Narrative Well-developed, cachectic elderly gentleman with BMI of 15.2, lying flat in bed, in no respiratory distress. HEENT, cardiac, pulmonary, extremity exam unchanged from 04/21/2023. Neuro is grossly nonfocal, he is awake alert oriented and articulate. Charges/Coding Visit Charges Inpatient E&M: 70134 Subs Hosp L3
--- NOTE | 2023-04-23 14:34 | CT_ITS ---
We are attempting to reach an attending provider to discuss findings. An addendum with communication details will be sent when the communication is complete. STUDY: CT ABDOMEN AND PELVIS WITH CONTRAST REASON FOR EXAM: Male, 83 years old. possible metastatic cancer -- evaluating or possible occult malinancy RADIATION DOSAGE (If Supplied By Facility): CTDIvol = ( 12.62 ) mGy, DLP = ( 249.24 ) mGycm TECHNIQUE: Transaxial images were obtained from the dome of the diaphragm to the symphysis pubis without oral contrast. Oral and amp;amp; IV Gastrografin and amp;amp; 100mL Isovue-370 was administered. Sagittal and coronal images were reconstructed. Individualized dose optimization techniques were used for this CT. COMPARISON: None. FINDINGS: Moderate size bilateral effusions with mild atelectasis in left lower lobe. The visualized portions of the heart are within normal limits. Normal liver. Normal gallbladder and extrahepatic biliary system. Spleen not visualized consistent with hysterectomy.. Normal pancreas. Normal bilateral adrenal glands. 2 tiny nonobstructing right renal calculi. No renal obstruction or mass. There is mild pelvocaliectasis of the left kidney and a small left parapelvic cyst . Nonspecific diffusely distended stomach and association with diffuse ileus and fecal retention throughout the colon with rectal impaction.. No evidence for small bowel obstruction. . Appendix not visualized status post appendectomy. Diffuse mesenteric edema and mild ascites is noted in association with edematous changes in the subcutaneous fat nonspecific anasarca.. Atherosclerotic changes of the aorta without evidence for aneurysm. Normal inferior vena cava. Normal retroperitoneum. Normal urinary bladder. Lumbar spine demonstrates degenerative changes. There is gas seen within the posterior paraspinous soft tissues at L5-S1 as well as gas within the spinal canal CT/Abdomen/Pelvis WITH Contrast IMPRESSION: Moderate-sized bilateral pleural effusions and left lower lobe atelectasis Tiny nonobstructing right renal calculi. Small parapelvic cyst in left kidney Nonspecific gastric distention and diffuse ileus with fecal retention in the colon. Incidental finding of gas within the posterior paraspinous soft tissues as well as within the spinal canal at L4-5 and L5-S1 possibly iatrogenic. Inflammatory disease not entirely excluded although there is no definitive evidence for acute osteomyelitis of the lumbar spine. Status post splenectomy and appendectomy Electronically Signed: Piero Rico MD at 19:45 EDT ,
--- NOTE | 2023-04-23 14:34 | PCM.PROGNOTE ---
Subjective Subjective Patient seen and examined. His 2 sons and a daughter were by his bedside. He complained of lower back pain due to the sacral fracture. He is little concerned about his neck pain. Patient however stated that he does not think the neck pain is really that serious and thinks his lower back pain takes priority. His records from [facility] have been received and to review, he did have a 1.8 cm upper left lung nodule worked up extensively 8 years ago with a biopsy and PET scans done and was deemed to be nonmalignant. The same lesion has not decreased to 8 mm. He has remained hemodynamically stable. Objective Data Objective Data Vital Signs: Vital Signs Temp Pulse Resp BP Pulse Ox O2 Del Method 98.1 F 55 L 16 174/80 H 94 Room Air 04/23/23 08:33 04/23/23 08:33 04/23/23 08:33 04/23/23 08:33 04/23/23 08:33 04/23/23 08:33 Oxygen Delivery Method Room Air Weight: 100 lb 3.2 oz Body Mass Index (BMI) 15.2 Intake & Output: Intake and Output for Last 24 Hours 04/21/23 04/22/23 04/23/23 23:59 23:59 23:59 Intake Total 4441.67 / 4441.67 2350.00 / 2350.00 2113.33 / 2113.33 Output Total 1350 / 1600 1500 / 1500 950 / 950 Balance 3091.67 / 2841.67 850.00 / 850.00 1163.33 / 1163.33 Lab / Micro Data Result Diagrams: 04/23/23 06:00 04/23/23 06:00 Labs: Laboratory Results - last 24 hr 04/23/23 06:00: WBC 9.7, RBC 2.73 L, Hgb 9.1 L, Hct 27.3 L, MCV 100.0 H, MCH 33.3 H, MCHC 33.3, RDW Std Deviation 60.7 H, RDW Coeff of [place] 16.7 H, Plt Count 172, MPV 11.8, Immature Gran % (Auto) 0.400, Neut % (Auto) 73.1 H, Lymph % (Auto) 12.1 L, [place] % (Auto) 9.2, Eos % (Auto) 4.9, Baso % (Auto) 0.3, Absolute Neuts (auto) 7.1, Absolute Lymphs (auto) 1.18, Nucleated RBC % 0 04/23/23 06:00: Sodium 141, Potassium 3.7, Chloride 113 H, Carbon Dioxide 24.0, Anion Gap 4 L, BUN 12, Creatinine 0.63 L, Estim Creat Clear Calc 35.35, Est GFR (MDRD) Af Amer 155, Est GFR (MDRD) Non-Af 128, BUN/Creatinine Ratio 19.0, Glucose 78, Calcium 7.8 L Rhythm Strip Rhythm Strip: Sinus Rhythm Rate: 58 Ectopy: None Physical Exam Const alert, oriented x3 and no apparent distress Constitutional Narrative: frail General Appearance: cooperative HEENT normocephalic, head/scalp atraumatic, moist oral mucous membranes and oropharynx normal HEENT Narrative: frail Eyes PERRL and EOMs intact bilaterally Neck no lymphadenopathy and supple Lymph Lymphatic: no lymphadenopathy noted and no lymphedema noted Resp normal respiratory effort, normal air movement and clear to auscultation bilaterally Effort and Inspection: tachypneic Cardio regular rate, regular rhythm, S1 normal heart sound, S2 normal heart sound and no murmurs GI normal to inspection, nondistended, normoactive bowel sounds, soft to palpation, non-tender and non-distended Extremity normal capillary refill, no clubbing, cyanosis or edema and no calf tenderness General Extremity: no tenderness to palpation of joints or extremities Skin General Skin Exam: no breakdown Neuro CN's II-XII intact bilaterally, no focal motor deficits, no sensory deficits noted and deep tendon reflexes 2+ bilaterally Psych thought process normal, cooperative and affect normal Appearance: appropriate Assessment & Plan Assessment/Plan (1) Lung nodule seen on imaging study: (2) Rhabdomyolysis: (3) Frequent falls: PLAN: Plan # Debillity due to mechanical falls with resultant sacral fractures had fallen several times at home imaging done showed bilateral sacral fracture. CT lumbar spine showed bilateral sacral fracture ad also showed severe loss of disc height of L1-2, L2-3, L3-4 and L4-5 as well as L5-S1 with moderate bilateral facet athropathy and moderate to severe bilateral foraminal encroachment. thoracic spine also showed scoliosis and diffuse dgenerative disc disease PT/OT on board. fall precautions pain management consulted for pain shot if possible to help with back pain. He is to get an epidural shot today by pain management #Acute rhabdomolysis improving. CPK has trended down significantly. largely resolved. Will monitor #Lung nodule CT chest showed left upper lobe nodule and airspace disease measuring 1.5cm abutting th right lower lobe posterior pleural based margin. THere was also diffuse demineralization of the osseous structure with no definite additional lytic lesions noted hypodensities within the C7 area. Pulmonology consulted. Patient and son tell me he had extensive work-up for similar lung findings at the [facility] about 7 to 8 years ago. He says he was told that all was clear he needed regular follow-up. Records from [facility] requested to review previous imaging Records from [facility] reviewed. Patient did have left upper lobe nodule probably vascular back [facility] [place] about 8 years ago and had a biopsy and PET scans all of which were negative for any evidence of malignancy. Follow-up is subsequently discontinued because it was thought to be nonmalignant. However this right lower lobe posterior pleural-based margin lesion which was measured at 1.5 cm is new and per discussion with Dr. Sy it is not clear if this could possibly be due to a lung contusion. Recommendation would be for him to follow-up with Dr. Oshea his [facility] energy and conservation technician on outpatient basis for repeat CAT scan in 3 to 6 months. #Neck pain Patient has apparently had chronic neck pain which she states his PCP told him was osteoarthritis and has been giving him a pain cream to rub over his neck. He states has been helping. However his children state that his neck pain seems to be more severe than he lets on. He did have a cervical spine MRI which showed diffusely heterogeneous marrow signal seen within the vertebral bodies with some small rounded areas of intermediate signal within the marrow spaces of vertebral bodies. Lack of active marrow edema in these regions suggested to red marrow activation heterogeneity related to patient's underlying hematologic status regular malignancy. Will get a PSA and CT of the abdomen and pelvis to rule out any occult malignancy. If these come back abnormal, will consult oncology to help determine need for bone scan. #Hypertension: On BP lisinopril #Thrombocytopenia:resolved. DVT prophylaxis: Lovenox Disposition: awaiting placement. For dc to TCU once medically stable Charges/Coding Visit Charges Inpatient E&M: 19247 Subs Hosp L2
--- NOTE | 2023-04-23 14:53 | RAD_ITS ---
STUDY: X-RAY - LUMBAR SPINE REASON FOR EXAM: Male, 83 years old. Lumbar block. TECHNIQUE: Single frontal focal lumbosacral view after contrast injection. view(s) of the lumbar spine were obtained. COMPARISON: None FINDINGS: Contrast projected over the L5-S1 interspace with people present. RAD/Spine 1 View Any Level IMPRESSION: Normal x-ray examination of the lumbar spine. Electronically Signed: Chai Alvarez MD at 15:23 EDT ,
[2023-04-23] MEDS: Triamcinolone Acetonide 40 MG/ML Vial ×2 (15:06→15:07)
[2023-04-23] MEDS: Lidocaine 0.5% (50 ml) 50 ML Vial (15:07)
[2023-04-23] MEDS: Lisinopril 10 MG Tablet PO (18:42)
[2023-04-23] MEDS: 0.9% Saline Lock 10 ML Syringe IV (18:47)
[2023-04-23] MEDS: Arthritis Pain Compound 60 CLICK TUBE TOPICAL (20:28)
[2023-04-24] MEDS: 0.9% Normal Saline 1,000 ML 100 ML IV (01:01)
[2023-04-24 02:30] VITALS: BP 158/83; PULSE 67; RESP 16; TEMP 37; O2SAT 96
[2023-04-24] MEDS: Acetaminophen 500 MG Tablet 1000 MG PO ×2 (05:06→13:29)
[2023-04-24 06:40] LABS: Absolute Lymphocyte Count 0.36 X10^3/uL (0.83-4.51); Absolute Neutrophil Count 8.2 X10^3/uL (2.0-7.7); Basophil# 0.01 X10^3/uL; Basophil% 0.1 % (0-1); Hematocrit 30.4 % (40-54); Hemoglobin 10.3 g/dL (13.0-16.5); Lymphocyte # 0.36 X10^3/ul (0.83-4.51); Mean Corp Hgb Conc 33.9 g/dL (32-36); Mean Corpuscular Hgb 33.6 pg (27.0-32.0); Mean Platelet Vol. 11.6 fl (6.2-12.0); Monocyte# 0.46 X10^3/uL; Monocyte% 5.1 % (0-10); NRBC Flagged by Analyzer 0 % (0-5); Neutrophil # 8.17 X10^3/uL (2.7-7.7); Neutrophil % 90.1 % (47-70); POSITIVE DIFFERENTIAL YES; Platelet Count 233 K/mm3 (150-450); Red Blood Count 3.07 M/mm3 (4.6-6.2); White Blood Count 9.1 K/mm3 (4.4-11.0)
[2023-04-24 06:42] LABS: Differential Indicated SCAN CRITERIA MET
[2023-04-24 07:02] LABS: Anion Gap 7 (5-15); BUN 16 mg/dL (7-18); BUN/Creat Ratio 20.4 RATIO (10-20); Calcium,Total 8.5 mg/dL (8.5-10.1); Chloride 105 mmol/L (98-107); Creatinine, Serum 0.79 mg/dL (0.70-1.30); EST Glomerular Filtration Rate 100 mL/min (>60); Est Glom Filt Rate - Afr Amer 121 mL/min (>60); Estimated Creatinine Clearance 35.35 ml/min; Glucose 150 mg/dL (74-106); Potassium 3.9 mmol/L (3.5-5.1); Sodium Level 138 mmol/L (136-145)
[2023-04-24 07:40] LABS: Platelet Estimate ADEQUATE (ADEQ); Red Cell Morphology NORM C+C NORMAL (NORM C&C)
--- NOTE | 2023-04-24 08:11 | PN.CC_ITS ---
Assessment & Plan Assessment/Plan (1) Lung nodule seen on imaging study: (2) Debility: PLAN: Plan RECOMMENDATIONS: 1. Follow-up as an outpatient for lung nodule evaluation 2. Initiate pulmonary toileting with Acapella 3. Continue PT/OT 4. No further work-up as an inpatient planned from a pulmonary perspective 5. Hemodynamically stable on room air. Will sign off from a critical care/pulmonary perspective IMPRESSIONS: 1. Lung Nodule Patient with a moderate risk nodule noted on CT scan incidentally. Patient does have risk factors for malignancy and does wish to follow-up. We will discuss as an outpatient whether patient should have serial CT versus going directed biopsy. There is no further intervention required from an inpatient perspective. Was very clear with the patient that this could be malignancy and needs to be followed up if he wishes to be aggressive. If patient were to change his mind and decided he does not want to be aggressive, serial CT scans have been used for prognostication, but would likely not progress to biopsy given increased risks. Subjective Subjective Patient did okay overnight. No acute issues were reported. Patient overall feels subjectively unchanged compared to previous. Patient did not have good recollection of his lung nodule, but does state that he would want to know what it is. Objective Data Objective Data Vital Signs: Vital Signs Temp Pulse Resp BP Pulse Ox O2 Del Method 37.0 C 67 16 158/83 H 96 Room Air 04/24/23 02:30 04/24/23 02:30 04/24/23 02:30 04/24/23 02:30 04/24/23 02:30 04/24/23 02:30 Oxygen Delivery Method Room Air Weight: 45.45 kg Body Mass Index (BMI) 15.2 Intake & Output: Intake and Output for Last 24 Hours 04/22/23 04/23/23 04/24/23 23:59 23:59 23:59 Intake Total 2350.00 / 2350.00 3113.33 / 3113.33 Output Total 1500 / 1500 1350 / 1950 1000 / 1000 Balance 850.00 / 850.00 1763.33 / 1163.33 -1000 / -1000 Lab / Micro Data Attestation: I reviewed the patient's lab results. Result Diagrams: 04/24/23 05:57 04/24/23 05:57 Labs: Laboratory Results - last 24 hr 04/24/23 05:57: WBC 9.1, RBC 3.07 L, Hgb 10.3 L, Hct 30.4 L, MCV 99.0 H, MCH 33.6 H, MCHC 33.9, RDW Std Deviation 58.0 H, RDW Coeff of [place] 16.0 H, Plt Count 233, MPV 11.6, Immature Gran % (Auto) 0.700, Neut % (Auto) 90.1 H, Lymph % (Auto) 4.0 L, [place] % (Auto) 5.1, Eos % (Auto) 0.0, Baso % (Auto) 0.1, Absolute Neuts (auto) 8.2 H, Absolute Lymphs (auto) 0.36 L, Nucleated RBC % 0, Platelet Estimate ADEQUATE, RBC Morphology NORM C+C 04/24/23 05:57: Sodium 138, Potassium 3.9, Chloride 105, Carbon Dioxide 26.0, Anion Gap 7, BUN 16, Creatinine 0.79, Estim Creat Clear Calc 35.35, Est GFR (MDRD) Af Amer 121, Est GFR (MDRD) Non-Af 100, BUN/Creatinine Ratio 20.4 H, Glucose 150 H, Calcium 8.5 Radiography Diagnostic Testing: Radiology Impression Abdomen/Pelvis CT 04/23/23 14:34 IMPRESSION: Moderate-sized bilateral pleural effusions and left lower lobe atelectasis Tiny nonobstructing right renal calculi. Small parapelvic cyst in left kidney Nonspecific gastric distention and diffuse ileus with fecal retention in the colon. Incidental finding of gas within the posterior paraspinous soft tissues as well as within the spinal canal at L4-5 and L5-S1 possibly iatrogenic. Inflammatory disease not entirely excluded although there is no definitive evidence for acute osteomyelitis of the lumbar spine. Status post splenectomy and appendectomy Electronically Signed: Piero Rico MD at 19:45 EDT , ADDENDUM: 04/23/232002 IMPRESSION: Moderate-sized bilateral pleural effusions and left lower lobe atelectasis Tiny nonobstructing right renal calculi. Small parapelvic cyst in left kidney Nonspecific gastric distention and diffuse ileus with fecal retention in the colon. Incidental finding of gas within the posterior paraspinous soft tissues as well as within the spinal canal at L4-5 and L5-S1 possibly iatrogenic. Inflammatory disease not entirely excluded although there is no definitive evidence for acute osteomyelitis of the lumbar spine. Status post splenectomy and appendectomy N.B. : The above Results were Read Back by Piero Rico MD to Naresh Washington RN, RN, and understanding confirmed on 04/23/2023 19:56:25 (ET). Electronically Signed: Piero Rico MD at 19:45 EDT , Spine X-Ray 04/23/23 14:53 IMPRESSION: Normal x-ray examination of the lumbar spine. Electronically Signed: Chai Alvarez MD at 15:23 EDT , Rhythm Strip Rhythm Strip: Sinus Rhythm Rate: 67 Ectopy: None Physical Exam Const alert, oriented x3 and no apparent distress Constitutional Narrative: frail General Appearance: cooperative HEENT normocephalic, head/scalp atraumatic, moist oral mucous membranes and oropharynx normal Eyes PERRL and EOMs intact bilaterally Neck no lymphadenopathy and supple Lymph Lymphatic: no lymphadenopathy noted and no lymphedema noted Resp normal respiratory effort, normal air movement and clear to auscultation bilaterally Cardio regular rate, regular rhythm, S1 normal heart sound, S2 normal heart sound and no murmurs GI normal to inspection, nondistended, normoactive bowel sounds, soft to palpation, non-tender and non-distended Extremity normal capillary refill, no clubbing, cyanosis or edema and no calf tenderness General Extremity: no tenderness to palpation of joints or extremities Skin General Skin Exam: no breakdown Neuro CN's II-XII intact bilaterally, no focal motor deficits, no sensory deficits noted and deep tendon reflexes 2+ bilaterally Psych thought process normal, cooperative and affect normal Appearance: appropriate Charges/Coding Visit Charges Inpatient E&M: 84891 Subs Hosp L2
--- NOTE | 2023-04-24 08:51 | NURSING ---
Dr Quiroga talking to pt, and son in law here also.
[2023-04-24] MEDS: Arthritis Pain Compound 60 CLICK TUBE TOPICAL (08:57)
[2023-04-24] MEDS: Senna Tablet 1 TABLET PO (08:57)
[2023-04-24] MEDS: Polyethylene Glycol 3350 17 GM PACKET PO (08:57)
[2023-04-24 09:06] VITALS: BP 172/81; PULSE 65; RESP 16; TEMP 36.8; O2SAT 95
[2023-04-24] MEDS: Lisinopril 10 MG Tablet PO (09:08)
[2023-04-24] MEDS: Gabapentin 100 MG Capsule 200 MG PO (09:08)
[2023-04-24] MEDS: traMADol 50 MG Tablet PO (09:11)
[2023-04-24 09:13] VITALS: PULSE 80
--- NOTE | 2023-04-24 12:52 | TREXTCAR_ITS ---
Diet Diet Order/Speech Therapy: 04/23/23 16:12 Diet: Regular - General Type of Dietary Supplement:: Chocolate Magic Cup BID Is pt able to select menu?: Yes Diet Comments: Do Not send MILK - does not like it,. may start diet after 1800 CT of Abd. Routine Orders/Code Status Enema Type: Fleetz Enema Frequency: Daily PRN Suppository Type: Dulcolax 10mg Suppository Frequency: Daily PRN Wound(s) LOW MID BACK: Wound Type: Puncture Therapies Weight Bearing: Weight bearing as tolerated Physical Therapy: Eval and Treat Occupational Therapy: Eval and Treat Problem/Diagnosis (1) Lung nodule seen on imaging study: Status: Acute Code(s): R91.1 - Solitary pulmonary nodule (2) Debility: Status: Acute Code(s): R53.81 - Other malaise Plan # Debillity due to mechanical falls with resultant sacral fractures * had fallen several times at home * imaging done showed bilateral sacral fracture. CT lumbar spine showed bilateral sacral fracture ad also showed severe loss of disc height of L1-2, L2-3, L3-4 and L4-5 as well as L5-S1 with moderate bilateral facet athropathy and moderate to severe bilateral foraminal encroachment. * thoracic spine also showed scoliosis and diffuse dgenerative disc disease * PT/OT on board. * fall precautions * pain management consulted for pain shot if possible to help with back pain. He is to get an epidural shot today by pain management * #Acute rhabdomolysis * improving. CPK has trended down significantly. * largely resolved. Will monitor * #Lung nodule * CT chest showed left upper lobe nodule and airspace disease measuring 1.5cm abutting th right lower lobe posterior pleural based margin. THere was also diffuse demineralization of the osseous structure with no definite additional lytic lesions noted hypodensities within the C7 area. * Pulmonology consulted. Patient and son tell me he had extensive work-up for similar lung findings at the [facility] about 7 to 8 years ago. He says he was told that all was clear he needed regular follow-up. * Records from [facility] requested to review previous imaging * Records from [facility] reviewed. Patient did have left upper lobe nodule probably vascular back liver [facility] about 8 years ago and had a biopsy and PET scans all of which were negative for any evidence of malignancy. Follow- up is subsequently discontinued because it was thought to be nonmalignant. However this right lower lobe posterior pleural-based margin lesion which was measured at 1.5 cm is new and per discussion with Dr. Sy it is not clear if this could possibly be due to a lung contusion. Recommendation would be for him to follow-up with Dr. Oshea his [facility] home support worker on outpatient basis for repeat CAT scan in 3 to 6 months. * #Neck pain * Patient has apparently had chronic neck pain which she states his PCP told him was osteoarthritis and has been giving him a pain cream to rub over his neck. He states has been helping. However his children state that his neck pain seems to be more severe than he lets on. * He did have a cervical spine MRI which showed diffusely heterogeneous marrow signal seen within the vertebral bodies with some small rounded areas of intermediate signal within the marrow spaces of vertebral bodies. Lack of active marrow edema in these regions suggested to red marrow activation heterogeneity related to patient's underlying hematologic status regular malignancy. * Will get a PSA and CT of the abdomen and pelvis to rule out any occult malignancy. If these come back abnormal, will consult oncology to help determine need for bone scan. * #Hypertension: On BP lisinopril #Thrombocytopenia:resolved. DVT prophylaxis: Lovenox Disposition: awaiting placement. For dc to TCU once medically stable Allergies/Procedures Done in Hospital Allergies No Known Allergies Allergy (Verified 04/18/23 12:27) Procedures: None Type of Care/Length of Stay Estimated LOS: Convalescent Care Less Than 30 days Type of Care Needed: Skilled Rehab Potential: Fair Prognosis: Fair Additional Orders/Day of Discharge Day of Discharge: 04/24/23 Dietary and Speech Recommendations Dietitian Recommendations/Changes: ADAT to Regular diet to optimize oral intakes when medically able. Resume chocolate Magic Cup BID with lunch and dinner to provide supplemental energy when diet advances. Discharge Plan Admission Admit Date/Time: 04/18/23 15:56 Primary Reason for Your Visit: debility due to mechanical falls Attending Provider: Jena Sawyer Primary Care Provider: Piero Ngo Consulting Providers: Nicholas Marroquin ; Dewayne Valdovinos ; Nii Black ; Ebenezer Sy ; Blil Mae ; Francy Osei PARTS CONSULTANT ; Miles Stout ; Raven Saucedo Instructions Patient Instructions: Exercises to Prevent Falls, ED Mechanical Fall, ED Fall with Uncertain Cause Discharge Orders/Prescriptions Prescriptions: New oxycodone 10 mg tablet 10 mg PO Q6H PRN (Reason: pain) 5 Days Qty: 20 0RF Continued lisinopril 10 MG tablet 10 mg PO DAILY Label Comments: TAKE ONE TABLET BY MOUTH DAILY gabapentin 100 mg capsule 200 mg PO DAILY Label Comments: TAKE 2 CAPSULES BY MOUTH DAILY FOR NERVE PAIN Referrals / Follow Up: Piero Ngo MD [Primary Care Provider] - Within 2 Weeks Chai Oshea MD [Non-Staff] - Within 1 Month Disposition Disposition (needs filled in before D/C Order can be placed): Long Term Facility
--- NOTE | 2023-04-24 12:54 | DS.PCM_ITS ---
Providers Date of Admission: 04/18/23 Primary Care Physician: Dr. 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 / Pulmonary Medicine Routine Consulting Provider: [facility] [place] Reason for Consult: suspected Lung Ca EMERGENT Consult: No Notified: Yes Date Notified: 04/19/23 Time Notified: 09:06 Method of Notification: Verbal 04/22/23 09:26 Consult: Pain Management Routine Consulting Provider: Raven Saucedo Reason for Consult: severe lower back pain EMERGENT Consult: No Notified: Yes Date Notified: 04/22/23 Time Notified: 09:26 Method of Notification: Answering Service Reason For Visit: CHRISTOPH WITH POSS MALIGNANCY Diagnosis Discharge Diagnosis (1) Lung nodule seen on imaging study: Status: Acute Code(s): R91.1 - Solitary pulmonary nodule (2) Debility: Status: Acute Code(s): R53.81 - Other malaise Plan # Debillity due to mechanical falls with resultant sacral fractures * had fallen several times at home * imaging done showed bilateral sacral fracture. CT lumbar spine showed bilateral sacral fracture ad also showed severe loss of disc height of L1-2, L2-3, L3-4 and L4-5 as well as L5-S1 with moderate bilateral facet athropathy and moderate to severe bilateral foraminal encroachment. * thoracic spine also showed scoliosis and diffuse dgenerative disc disease * PT/OT on board. * fall precautions * pain management consulted for pain shot if possible to help with back pain. He is to get an epidural shot today by pain management * #Acute rhabdomolysis * improving. CPK has trended down significantly. * largely resolved. Will monitor * #Lung nodule * CT chest showed left upper lobe nodule and airspace disease measuring 1.5cm abutting th right lower lobe posterior pleural based margin. THere was also diffuse demineralization of the osseous structure with no definite additional lytic lesions noted hypodensities within the C7 area. * Pulmonology consulted. Patient and son tell me he had extensive work-up for similar lung findings at the [facility] about 7 to 8 years ago. He says he was told that all was clear he needed regular follow-up. * Records from [facility] requested to review previous imaging * Records from [facility] reviewed. Patient did have left upper lobe nodule probably vascular [facility] about 8 years ago and had a biopsy and PET scans all of which were negative for any evidence of malignancy. Follow- up is subsequently discontinued because it was thought to be nonmalignant. However this right lower lobe posterior pleural-based margin lesion which was measured at 1.5 cm is new and per discussion with Dr. Sy it is not clear if this could possibly be due to a lung contusion. Recommendation would be for him to follow-up with Dr. Oshea his F concrete plant laborer on outpatient basis for repeat CAT scan in 3 to 6 months. * #Neck pain * Patient has apparently had chronic neck pain which she states his PCP told him was osteoarthritis and has been giving him a pain cream to rub over his neck. He states has been helping. However his children state that his neck pain seems to be more severe than he lets on. * He did have a cervical spine MRI which showed diffusely heterogeneous marrow signal seen within the vertebral bodies with some small rounded areas of intermediate signal within the marrow spaces of vertebral bodies. Lack of active marrow edema in these regions suggested to red marrow activation heterogeneity related to patient's underlying hematologic status regular malignancy. * Will get a PSA and CT of the abdomen and pelvis to rule out any occult malignancy. If these come back abnormal, will consult oncology to help determine need for bone scan. * #Hypertension: On BP lisinopril #Thrombocytopenia:resolved. DVT prophylaxis: Lovenox Disposition: awaiting placement. For dc to TCU once medically stable Medications at Discharge Home Medications lisinopril 10 mg tablet 10 mg PO DAILY bp 04/29/18 gabapentin 100 mg capsule 200 mg PO DAILY nerve pain 04/18/23 oxycodone 10 mg tablet 10 mg PO Q6H PRN pain 5 days #20 tabs 04/24/23 Weight / BMI Weight Weight: 100 lb 3.2 oz Body Mass Index (BMI) 15.2 ABG / Lab / Microbiology Data Result Diagrams: 04/24/23 05:57 04/24/23 05:57 Laboratory: Laboratory Results - last 24 hr 04/24/23 05:57: WBC 9.1, RBC 3.07 L, Hgb 10.3 L, Hct 30.4 L, MCV 99.0 H, MCH 33. 6 H, MCHC 33.9, RDW Std Deviation 58.0 H, RDW Coeff of Apolonia 16.0 H, Plt Count 233, MPV 11.6, Immature Gran % (Auto) 0.700, Neut % (Auto) 90.1 H, Lymph % (Auto) 4.0 L, [place] % (Auto) 5.1, Eos % (Auto) 0.0, Baso % (Auto) 0.1, Absolute Neuts (auto) 8.2 H, Absolute Lymphs (auto) 0.36 L, Nucleated RBC % 0, Platelet Estimate ADEQUATE, RBC Morphology NORM C+C 04/24/23 05:57: Sodium 138, Potassium 3.9, Chloride 105, Carbon Dioxide 26.0, Anion Gap 7, BUN 16, Creatinine 0.79, Estim Creat Clear Calc 35.35, Est GFR (MDRD) Af Amer 121, Est GFR (MDRD) Non-Af 100, BUN/Creatinine Ratio 20.4 H, Glucose 150 H, Calcium 8.5 Microbiology: Microbiology 04/24/23 11:30 Nasal Secretion SARS-CoV-2 Antigen (Rapid) - Final Radiography Diagnostic Testing: Radiology Impression Abdomen/Pelvis CT 04/23/23 14:34 IMPRESSION: Moderate-sized bilateral pleural effusions and left lower lobe atelectasis Tiny nonobstructing right renal calculi. Small parapelvic cyst in left kidney Nonspecific gastric distention and diffuse ileus with fecal retention in the colon. Incidental finding of gas within the posterior paraspinous soft tissues as well as within the spinal canal at L4-5 and L5-S1 possibly iatrogenic. Inflammatory disease not entirely excluded although there is no definitive evidence for acute osteomyelitis of the lumbar spine. Status post splenectomy and appendectomy Electronically Signed: Piero Rico MD at 19:45 EDT , ADDENDUM: 04/23/232002 IMPRESSION: Moderate-sized bilateral pleural effusions and left lower lobe atelectasis Tiny nonobstructing right renal calculi. Small parapelvic cyst in left kidney Nonspecific gastric distention and diffuse ileus with fecal retention in the colon. Incidental finding of gas within the posterior paraspinous soft tissues as well as within the spinal canal at L4-5 and L5-S1 possibly iatrogenic. Inflammatory disease not entirely excluded although there is no definitive evidence for acute osteomyelitis of the lumbar spine. Status post splenectomy and appendectomy N.B. : The above Results were Read Back by Piero Rico MD to Naresh Washington RN, RN, and understanding confirmed on 04/23/2023 19:56:25 (ET). Electronically Signed: Piero Rico MD at 19:45 EDT , Spine X-Ray 04/23/23 14:53 IMPRESSION: Normal x-ray examination of the lumbar spine. Electronically Signed: Chai Alvarez MD at 15:23 EDT , Discharge Plan Admission Admit Date/Time: 04/18/23 15:56 Primary Reason for Your Visit: debility due to mechanical falls Attending Provider: Jena Sawyer Primary Care Provider: Piero Ngo Consulting Providers: Nicholas Marroquin ; Dewayne Valdovinos ; Nii Black ; Ebenezer Sy ; Bill Mae ; Francy Osei NP ; Miles Stout ; Raven Saucedo Instructions Patient Instructions: Exercises to Prevent Falls, ED Mechanical Fall, ED Fall with Uncertain Cause Discharge Orders/Prescriptions Prescriptions: New oxycodone 10 mg tablet 10 mg PO Q6H PRN (Reason: pain) 5 Days Qty: 20 0RF Continued lisinopril 10 MG tablet 10 mg PO DAILY Label Comments: TAKE ONE TABLET BY MOUTH DAILY gabapentin 100 mg capsule 200 mg PO DAILY Label Comments: TAKE 2 CAPSULES BY MOUTH DAILY FOR NERVE PAIN Referrals / Follow Up: Piero Ngo MD [Primary Care Provider] - Within 2 Weeks Chai Oshea MD [Non-Staff] - Within 1 Month Disposition Disposition (needs filled in before D/C Order can be placed): [facility]
--- NOTE | 2023-04-24 12:54 | PCM.DC.SUM ---
Providers Date of Admission: 04/18/23 Date of Discharge: 04/24/23 Primary Care Physician: Dr. 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: Teacher Ballet / Pulmonary Medicine Routine Consulting Provider: [facility] [place] Reason for Consult: suspected Lung Ca EMERGENT Consult: No Notified: Yes Date Notified: 04/19/23 Time Notified: 09:06 Method of Notification: Verbal 04/22/23 09:26 Consult: Pain Management Routine Consulting Provider: Raven Saucedo Reason for Consult: severe lower back pain EMERGENT Consult: No Notified: Yes Date Notified: 04/22/23 Time Notified: 09:26 Method of Notification: Answering Service Reason For Visit: RHABDO WITH POSS MALIGNANCY Diagnosis Discharge Diagnosis (1) Lung nodule seen on imaging study: Status: Acute Code(s): R91.1 - Solitary pulmonary nodule (2) Debility: Status: Acute Code(s): R53.81 - Other malaise Plan # Debillity due to mechanical falls with resultant sacral fractures had fallen several times at home imaging done showed bilateral sacral fracture. CT lumbar spine showed bilateral sacral fracture ad also showed severe loss of disc height of L1-2, L2-3, L3-4 and L4-5 as well as L5-S1 with moderate bilateral facet athropathy and moderate to severe bilateral foraminal encroachment. thoracic spine also showed scoliosis and diffuse dgenerative disc disease PT/OT on board. fall precautions pain management consulted for pain shot if possible to help with back pain. He is to get an epidural shot today by pain management #Acute rhabdomolysis improving. CPK has trended down significantly. largely resolved. Will monitor #Lung nodule CT chest showed left upper lobe nodule and airspace disease measuring 1.5cm abutting th right lower lobe posterior pleural based margin. THere was also diffuse demineralization of the osseous structure with no definite additional lytic lesions noted hypodensities within the C7 area. Pulmonology consulted. Patient and son tell me he had extensive work-up for similar lung findings at the [facility] about 7 to 8 years ago. He says he was told that all was clear he needed regular follow-up. Records from [facility] requested to review previous imaging Records from [facility] reviewed. Patient did have left upper lobe nodule probably [facility] and had a biopsy and PET scans all of which were negative for any evidence of malignancy. Follow-up is subsequently discontinued because it was thought to be nonmalignant. However this right lower lobe posterior pleural-based margin lesion which was measured at 1.5 cm is new and per discussion with Dr. Sy it is not clear if this could possibly be due to a lung contusion. Recommendation would be for him to follow-up with Dr. Oshea his F continuous process tanner rotary drum on outpatient basis for repeat CAT scan in 3 to 6 months. #Neck pain Patient has apparently had chronic neck pain which she states his PCP told him was osteoarthritis and has been giving him a pain cream to rub over his neck. He states has been helping. However his children state that his neck pain seems to be more severe than he lets on. He did have a cervical spine MRI which showed diffusely heterogeneous marrow signal seen within the vertebral bodies with some small rounded areas of intermediate signal within the marrow spaces of vertebral bodies. Lack of active marrow edema in these regions suggested to red marrow activation heterogeneity related to patient's underlying hematologic status regular malignancy. Will get a PSA and CT of the abdomen and pelvis to rule out any occult malignancy. If these come back abnormal, will consult oncology to help determine need for bone scan. #Hypertension: On BP lisinopril #Thrombocytopenia:resolved. DVT prophylaxis: Lovenox Disposition: awaiting placement. For dc to TCU once medically stable Medications at Discharge Home Medications lisinopril 10 mg tablet 10 mg PO DAILY bp 04/29/18 gabapentin 100 mg capsule 200 mg PO DAILY nerve pain 04/18/23 oxycodone 10 mg tablet 10 mg PO Q6H PRN pain 5 days #20 tabs 04/24/23 Hospital Course Operations None Procedures - (epidural pain shot) Summary of Care Provided Minutes Spent on Discharge: 55 Hospital Course: Patient is an 83-year-old male with a past medical history as outlined was admitted through the ED on 04/18/2023 with a complaint of mechanical falls to 3 months prior to admission. She had fallen 2 days prior to admission and injured his left shoulder. He said he went to the urgent care and had an x-ray which showed no acute pathology. He subsequently fell again on the morning of admission and could not get up on his own. He does not member that he hit his head. He laid on the floor until his children found him. It was unclear how long he had been on the floor. On admission he was found to have a sacral fracture and elevated CPK indicating of rhabdomyolysis. He was also noted to have 3 lytic lesions on his C7 vertebrae. Chest x-ray showed questionable bilateral pulmonary masses. He was admitted to be managed for debility due to mechanical fall and resultant bilateral sacral fractures. CT of the test done showed a left upper lobe nodule and airspace disease measuring 1.5 cm abutting the right lower lobe posterior pleural-based margin. Patient stated that he had had extensive work-up done for this pulmonary nodule at [facility] about 8 years prior and had been ruled noncancerous. Records were requested from [facility] and pulmonology was consulted. Records from [facility] indicated that he had had this left upper lobe nodule which had actually decreased in size over that period. He had had a biopsy done which was nonmalignant and had also had PET scans done and subsequently follow-up was discontinued as it was not felt to be malignant. Per discussion with pulmonology here, decision was made not to do any further work-up for the left upper lobe nodule. However with the right lower lobe pleural-based airspace disease versus nodule measuring 1.5 cm, pulmonology recommended follow-up with his primary continuous process tanner rotary drum at [facility] for further work-up to be done as needed and follow-up chest CT in 3 to 6 months as needed. Due to patient's persistent lower back pain, pain management was consulted and he had an epidural pain shots done to help with the pain. Of note CT of the abdomen and pelvis done to look for any occult malignancy in light of the cervical spine C7 lytic lesion was negative for any pathology. PSA and carcinoembryonic antigens ordered were pending at time of discharge. Patient was discharged to the transitional care unit on 04/24/2023. He is follow-up with his primary care doctor within 1 to 2 weeks. As stated, PSA and carcinoembryonic antigens are still pending. He is to follow-up with primary care doctor for further work-up to be ordered as needed. Serum protein electrophoresis was also ordered and was also pending. Patient seen and examined prior to discharge. He had no complaints and had an uneventful night. Review of systems otherwise negative. Labs and vitals reviewed. Home medication reviewed and reconciled. He was discharged with a prescription for p.o. oxycodone 10 mg every 6 hours as needed for total of 20 tablets for 5 days to help with pain control. Physical Exam Const alert, oriented x3 and no apparent distress Constitutional Narrative: frail General Appearance: cooperative and comfortable Orientation / Consciousness: awake HEENT normocephalic, head/scalp atraumatic, hearing grossly normal bilaterally, moist oral mucous membranes and oropharynx normal Mouth: oral and palatal mucosa normal Eyes PERRL and EOMs intact bilaterally Neck no lymphadenopathy and supple Lymph Lymphatic: no lymphadenopathy noted and no lymphedema noted Resp normal respiratory effort, normal air movement and clear to auscultation bilaterally Effort and Inspection: tachypneic Cardio regular rate, regular rhythm, S1 normal heart sound, S2 normal heart sound, no murmurs and no rub GI normal to inspection, nondistended, normoactive bowel sounds, soft to palpation, non-tender and non-distended Extremity normal capillary refill, no clubbing, cyanosis or edema and no calf tenderness General Extremity: no tenderness to palpation of joints or extremities Skin no rashes or lesions noted General Skin Exam: no breakdown Neuro oriented x3, CN's II-XII intact bilaterally, moves all extremities, no focal motor deficits, no sensory deficits noted and deep tendon reflexes 2+ bilaterally Sensorium / Orientation: awake and alert Motor Exam: strength 5/5 throughout Psych thought process normal, cooperative and affect normal Appearance: appropriate Weight / BMI Weight Weight: 100 lb 3.2 oz Body Mass Index (BMI) 15.2 ABG / Lab / Microbiology Data Result Diagrams: 04/24/23 05:57 04/24/23 05:57 Laboratory: Laboratory Results - last 24 hr 04/24/23 05:57: WBC 9.1, RBC 3.07 L, Hgb 10.3 L, Hct 30.4 L, MCV 99.0 H, MCH 33.6 H, MCHC 33.9, RDW Std Deviation 58.0 H, RDW Coeff of Apolonia 16.0 H, Plt Count 233, MPV 11.6, Immature Gran % (Auto) 0.700, Neut % (Auto) 90.1 H, Lymph % (Auto) 4.0 L, [place] % (Auto) 5.1, Eos % (Auto) 0.0, Baso % (Auto) 0.1, Absolute Neuts (auto) 8.2 H, Absolute Lymphs (auto) 0.36 L, Nucleated RBC % 0, Platelet Estimate ADEQUATE, RBC Morphology NORM C+C 04/24/23 05:57: Sodium 138, Potassium 3.9, Chloride 105, Carbon Dioxide 26.0, Anion Gap 7, BUN 16, Creatinine 0.79, Estim Creat Clear Calc 35.35, Est GFR (MDRD) Af Amer 121, Est GFR (MDRD) Non-Af 100, BUN/Creatinine Ratio 20.4 H, Glucose 150 H, Calcium 8.5 Microbiology: Microbiology 04/24/23 11:30 Nasal Secretion SARS-CoV-2 Antigen (Rapid) - Final Radiography Diagnostic Testing: Radiology Impression Abdomen/Pelvis CT 04/23/23 14:34 IMPRESSION: Moderate-sized bilateral pleural effusions and left lower lobe atelectasis Tiny nonobstructing right renal calculi. Small parapelvic cyst in left kidney Nonspecific gastric distention and diffuse ileus with fecal retention in the colon. Incidental finding of gas within the posterior paraspinous soft tissues as well as within the spinal canal at L4-5 and L5-S1 possibly iatrogenic. Inflammatory disease not entirely excluded although there is no definitive evidence for acute osteomyelitis of the lumbar spine. Status post splenectomy and appendectomy Electronically Signed: Piero Rico MD at 19:45 EDT Reading Location ID and State: [facility] / [place] , Service support , ADDENDUM: 04/23/232002 IMPRESSION: Moderate-sized bilateral pleural effusions and left lower lobe atelectasis Tiny nonobstructing right renal calculi. Small parapelvic cyst in left kidney Nonspecific gastric distention and diffuse ileus with fecal retention in the colon. Incidental finding of gas within the posterior paraspinous soft tissues as well as within the spinal canal at L4-5 and L5-S1 possibly iatrogenic. Inflammatory disease not entirely excluded although there is no definitive evidence for acute osteomyelitis of the lumbar spine. Status post splenectomy and appendectomy N.B. : The above Results were Read Back by Piero Rico MD to Naresh Washington RN, RN, and understanding confirmed on 04/23/2023 19:56:25 (ET). Electronically Signed: Piero Rico MD at 19:45 EDT , Spine X-Ray 04/23/23 14:53 IMPRESSION: Normal x-ray examination of the lumbar spine. Electronically Signed: Chai Alvarez MD at 15:23 EDT , D/C Instructions Discharge Diet: Low fat / Low cholesterol Discharge Activity: Return to Normal Activity Weight Bearing Status: Weight bearing as tolerated Call your doctor if you observe: Fever of 101 or Higher, Shortness of breath, Dizziness, Swelling in the ankles and Chest pain Meaningful Use Info Meaningful Use Diagnoses (Choose all that apply): None applicable Discharge Plan Admission Admit Date/Time: 04/18/23 15:56 Primary Reason for Your Visit: debility due to mechanical falls Attending Provider: Jena Sawyer Primary Care Provider: Piero Ngo Consulting Providers: Nicholas Marroquin ; Dewayne Valdovinos ; Nii Black ; Ebenezer Sy ; Bill Mae ; Francy Osei NP ; Mlies Stout ; Raven Saucedo Instructions Patient Instructions: Exercises to Prevent Falls, ED Mechanical Fall, ED Fall with Uncertain Cause Discharge Orders/Prescriptions Prescriptions: New oxycodone 10 mg tablet 10 mg PO Q6H PRN (Reason: pain) 5 Days Qty: 20 0RF Continued lisinopril 10 MG tablet 10 mg PO DAILY Label Comments: TAKE ONE TABLET BY MOUTH DAILY gabapentin 100 mg capsule 200 mg PO DAILY Label Comments: TAKE 2 CAPSULES BY MOUTH DAILY FOR NERVE PAIN Referrals / Follow Up: Piero Ngo MD [Primary Care Provider] - Within 2 Weeks Chai Oshea MD [Non-Staff] - Within 1 Month Disposition Disposition (needs filled in before D/C Order can be placed): [facility] Charges/Coding Visit Charges Inpatient E&M: 92368 Disch Hosp >30min
[2023-04-24 13:01] VITALS: BP 167/90; PULSE 70; RESP 18; TEMP 36.7; O2SAT 94
--- NOTE | 2023-04-24 13:21 | PHA.DC.MR ---
Pharmacy Service has performed discharge medication reconciliation for this patient. The patient's discharge medication list was reviewed for discrepancies and discrepancies were resolved. Home Medications lisinopril 10 mg tablet 10 mg PO DAILY bp 04/29/18 gabapentin 100 mg capsule 200 mg PO DAILY nerve pain 04/18/23 oxycodone 10 mg tablet 10 mg PO Q6H PRN pain 5 days #20 tabs 04/24/23
[2023-04-24 13:29] VITALS: BP 167/90; PULSE 70
[2023-04-24] MEDS: hydrALAZINE 20 MG/ML Vial 10 MG IV (13:29)
--- NOTE | 2023-04-24 13:31 | CASEMGMT ---
Social Work Pt is discharged to TCU today, precert is still good today. SW faxed over all discharge information to TCU. SW spoke w/pt and son in room, both were already aware and agreeable to pt going to TCU today. No further needs, pt to TCU skilled today. STAN Sosa
[2023-04-24 13:42] VITALS: BP 151/71; PULSE 76
[2023-04-28 15:08] LABS: Albumin, Ur 17.9 % (.); Alpha-1-Globulin, Ur 4.8 % (.); Alpha-2-Globulins, Ur 21.4 % (.); Beta Globulin, Ur 35.7 % (.); Gamma Globulin, Ur 20.1 % (.); M-Spike, Ur % Not Observed % (Not Observed); Protein, 24Ur 8 mg/24 hr (30-150); Total Protein, Ur 7.2 mg/dL (Not Estab.)
[2023-04-30 14:10] LABS: Carcinoembryonic Antigen 3.5 ng/mL (0.0-4.7); PSA, Total 0.8 ng/mL (0.0-4.0)
== END 2023-04-24 14:00 | disposition skilled nursing facility (03) | DRG 964 ==
LOC: ED 15:11 → MS3 15:30
PROVIDERS: Anesthesiology Pain Medicine; Internal Medicine; Admitting Provider Family Medicine; Emergency Provider Emergency Medicine; PCP Family Medicine; Visit Provider Student in an Organized Health Care Education/Training Program
PROC: 3E0S3BZ Introduction of Anesthetic Agent into Epidural Space, Percutaneous Approach (ICD-10-PCS; CPT 62322; principal; 2023-04-23 14:40)
DX: T79.6XXA Traumatic ischemia of muscle, initial encounter (principal); S32.10XA Unspecified fracture of sacrum, initial encounter for closed fracture; R64 Cachexia; Z68.1 Body mass index [BMI] 19.9 or less, adult; D69.6 Thrombocytopenia, unspecified; M46.96 Unspecified inflammatory spondylopathy, lumbar region; I10 Essential (primary) hypertension; M51.34 Other intervertebral disc degeneration, thoracic region; M47.812 Spondylosis without myelopathy or radiculopathy, cervical region; W06.XXXA Fall from bed, initial encounter; M99.53 Intervertebral disc stenosis of neural canal of lumbar region; M51.36 Other intervertebral disc degeneration, lumbar region; G89.29 Other chronic pain; R53.81 Other malaise; R29.6 Repeated falls; R91.1 Solitary pulmonary nodule; Z57.5 Occupational exposure to toxic agents in other industries; Z79.899 Other long term (current) drug therapy; Z87.891 Personal history of nicotine dependence
CPT/HCPCS: 36415; 64483; 70450; 71045; 71260; 72020; 72125; 72128; 72131; 72156; 72170; 74177; 80048; 80053; 80061; 81001; 81050; 82378; 82550; 83735; 84100; 84153; 84166; 84443; 85025; 85610; 86335; 87426; 93005; 97110; 97116; 97163; 97165; 97530; 97535; 97802; 97803; 99285; A9575; J7030; J7120; Q9967; A4216

== ENCOUNTER 2023-04-24 14:17 | Inpatient (IN) | payer MEDICARE, SELFPAY ==
[2023-04-24 14:26] VITALS: BP 145/76; PULSE 77; RESP 16; TEMP 36.6; O2SAT 96; BMI 18.8
--- NOTE | 2023-04-24 14:52 | HP.PCM_ITS ---
HPI - General General Date of Admission: 04/24/23 Date of Service: 04/24/23 Chief Complaint: Here for rehabilitation. HPI Narrative 04/18/2023 TAYA BONILLA, is a 83 Male who presents to [facility] Emergency Department with fall. 04/18/2023 EKG sinus bradycardia, left axis deviation. Recurrent falls, fell 2 days ago, going up stairs. Injured left shoulder, fell out of bed, hurt back. Fell in bathroom, unable to get up, back pain. Left buttock wound consistent with rhabdomyolysis. Morphine IV, IV fluids given. WBC 13.5, CPK 2434. Chest X-ray left upper lobe infiltrate versus mass, right middle lobe infiltrate, COPD changes. CT showed C7 lytic lesions. CT showed sacral fracture. 04/18/[address] chest for bilateral pulmonary masses. C7 3 lytic lesions. PT/OT debility. IV fluids for rhabdomyolysis. Urinalysis negative, Hold antibiotics. 04/19/2023 PT/OT SNF. IV fluids, CPK, BMP for acute rhabdomyolysis. CT chest left upper lobe 8mm nodule, right lower lobe 1.5cm airspace disease. CT negative for lytic lesions, consult Dr. Sy. Consider stopping Lovenox for thrombocytopenia. 04/20/2023 Feels weak. Rhabdomyolysis improving. Dr. Sy awaiting records form previous workup left upper lobe nodule. MRI cervical spine recommended nuclear medicine bone scan. 04/21/2023 Weak, bilateral lower extremity pain. 04/22/2023 Low back pain, weak. Consult pain management for low back pain. Thrombocytopenia resolved, Platelet 154. 04/23/2023 Low back pain secondary to sacral fracture. Left upper lobe nodule smaller, NOT cancer. Right lower lobe lesion could be contusion, recommend Dr. Oshea followup CT chest in 3 to 6 months. MRI cervical spine showed ? bone malignancy or mets, PSA, CEA ordered. CT abdomen/pelvis negative cancer metastasis. 04/24/2023 Dr. Saucedo performed lumbar epidural steroid injection for low back pain. 04/24/2023 Admit to TCU with debility, here for rehabilitation, strengthening, prior to discharge home alone. [facility] Medical History (Updated 04/24/23 @ 15:[address] Marcelo Edge MD) Frequent falls HTN (hypertension) Hypertension Lung nodule seen on imaging study Pulmonary infiltrates on CXR Rhabdomyolysis Thrombocytopenia Home Medications lisinopril 10 mg tablet 10 mg PO DAILY bp 04/29/18 [History Last Taken Unknown] gabapentin 100 mg capsule 200 mg PO DAILY nerve pain 04/18/23 [History Last Taken Unknown] oxycodone 10 mg tablet 10 mg PO Q6H PRN pain 5 days #20 tabs 04/24/23 [Rx Last Taken Unknown] Allergy/AdvReac Type Severity Reaction Status Date / Time No Known Allergies Allergy Verified 04/18/23 12:27 Family History (Updated 04/18/23 @ 15:[address] Nicholas Marroquin MD) Other Dementia Surgical History (Updated 04/18/23 @ 15:[address] Nicholas Marroquin MD) History of appendectomy History of splenectomy Social History (Updated 04/24/23 @ 15:[address] Marcelo Edge MD) household members: none Smoking Status: Former smoker alcohol intake: never substance use type: does not use ROS Constitutional Constitutional: Denies chills, fever(s) or weight gain ENT HEENT: Denies headache(s), nasal congestion or nasal discharge Cardiovascular Cardiovascular: Denies chest pain or palpitations Respiratory/Chest Respiratory/Chest: Denies cough, excessive phlegm production or shortness of breath with exertion Gastrointestinal Gastrointestinal: Denies abdominal pain, nausea or vomiting Genitourinary Genitourinary: Denies dysuria Musculoskeletal Musculoskeletal: Denies joint pain or joint swelling Integumentary Integumentary: Denies rash or wounds Neurologic Neurologic: Denies focal weakness, numbness or tingling Psychiatric Psychiatric: Denies anxiety, auditory hallucinations, depression, homicidal ideation or suicidal ideation Physical Exam Const alert General Appearance: cooperative HEENT normocephalic Eyes PERRL and EOMs intact bilaterally Neck supple, no JVD and no carotid bruits Resp normal respiratory effort, normal air movement and clear to auscultation bilaterally Cardio regular rate and regular rhythm GI normal to inspection, nondistended, normoactive bowel sounds, non-tender and non-distended Extremity normal capillary refill General Extremity: Negative for edema Skin no rashes or lesions noted General Skin Exam: no breakdown Psych affect normal Appearance: appropriate Assessment & Plan Assessment/Plan (1) Debility: (2) Frequent falls: (3) Rhabdomyolysis: (4) Lung nodule seen on imaging study: (5) Sacral fracture, closed: (6) Thrombocytopenia: (7) Hypertension: (8) 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 * Debility - PT/OT. * Cognition - ST. * Pain - Tylenol 1000mg q8, Tramadol 50mg q6h prn pain (1-5), Oxycodone 10mg q4h prn pain (6-10). * Bowel - senna/colace 2 tablets bid, Dulcolax 10mg pr x 1 prn, MOM 30ml po x 1 prn. * Adult immunization - Administer pneumonia vaccine, covid19 vaccine, flu vaccine as appropriate. * DVT prophylaxis - Hold, monitor. * Hypertension - Lisinopril 10mg daily * Neuropathic pain - Gabapentin 200mg daily. * Muscle spasm - Baclofen 5mg tid prn. * Rule out cervical spine metastasis - PSA, CEA pending, order nuclear medicine bone scan. * Thrush - Nystatin swish and swallow x 10 days.
[2023-04-24] MEDS: Acetaminophen 500 MG Tablet 1000 MG PO ×2 (16:41→20:53)
[2023-04-24] MEDS: NYSTATIN 500,000 UNIT/5 ML UDC 500000 UNIT PO ×2 (17:54→20:54)
[2023-04-24] MEDS: Senna/Docusate Sodium 1 Tablet 2 TABLET PO (17:54)
[2023-04-24] MEDS: Menthol/Lanolin/Calamine/Znox 113 GM Tube 1 APPLIC TOPICAL (20:57)
[2023-04-25] MEDS: Gabapentin 100 MG Capsule 200 MG PO (05:31)
[2023-04-25] MEDS: Senna/Docusate Sodium 1 Tablet 2 TABLET PO (05:32)
[2023-04-25] MEDS: Lisinopril 10 MG Tablet PO (05:32)
[2023-04-25] MEDS: Acetaminophen 500 MG Tablet 1000 MG PO ×3 (05:32→20:10)
[2023-04-25] MEDS: NYSTATIN 500,000 UNIT/5 ML UDC 500000 UNIT PO ×4 (05:33→20:16)
[2023-04-25] MEDS: Menthol/Lanolin/Calamine/Znox 113 GM Tube 1 APPLIC TOPICAL ×3 (05:35→20:11)
[2023-04-25 07:21] LABS: Absolute Lymphocyte Count 0.57 X10^3/uL (0.83-4.51); Absolute Neutrophil Count 14.3 X10^3/uL (2.0-7.7); Basophil# 0.03 X10^3/uL; Basophil% 0.2 % (0-1); Hematocrit 28.9 % (40-54); Hemoglobin 9.7 g/dL (13.0-16.5); Lymphocyte # 0.57 X10^3/ul (0.83-4.51); Lymphocyte % 3.5 % (19-41); Mean Corp Hgb Conc 33.6 g/dL (32-36); Mean Corpuscular Hgb 33.3 pg (27.0-32.0); Mean Corpuscular Volume 99.3 fL (80-94); Mean Platelet Vol. 11.2 fl (6.2-12.0); Monocyte# 1.19 X10^3/uL; Monocyte% 7.3 % (0-10); NRBC Flagged by Analyzer 0 % (0-5); Neutrophil % 88.1 % (47-70); POSITIVE DIFFERENTIAL YES; Platelet Count 254 K/mm3 (150-450); RBC Distribution Width CV 16.3 % (11.6-14.6); RBC Distribution Width SD 59.2 fl (35.1-43.9); Red Blood Count 2.91 M/mm3 (4.6-6.2); White Blood Count 16.2 K/mm3 (4.4-11.0)
[2023-04-25 07:33] LABS: Anion Gap 5 (5-15); BUN 20 mg/dL (7-18); Calcium,Total 8.5 mg/dL (8.5-10.1); Chloride 109 mmol/L (98-107); Creatinine, Serum 0.77 mg/dL (0.70-1.30); EST Glomerular Filtration Rate 102 mL/min (>60); Est Glom Filt Rate - Afr Amer 124 mL/min (>60); Estimated Creatinine Clearance 43.86 ml/min; Glucose 112 mg/dL (74-106); Potassium 4.1 mmol/L (3.5-5.1); Sodium Level 139 mmol/L (136-145)
[2023-04-25 07:56] LABS: Differential Indicated SCAN CRITERIA MET
[2023-04-25 10:03] LABS: Differential Comment SCANNED
[2023-04-25] MEDS: Tuberculin,Purif.prot.deriv. 50 TU/ML Vial 0.1 ML ID (10:39)
[2023-04-25] MEDS: oxyCODONE 5 MG Tablet 10 MG PO ×2 (10:39→14:46)
[2023-04-25 13:53] VITALS: BP 154/80; PULSE 68; RESP 14; TEMP 36.4; O2SAT 95
[2023-04-26] MEDS: Acetaminophen 500 MG Tablet 1000 MG PO ×3 (05:49→20:54)
[2023-04-26] MEDS: Lisinopril 10 MG Tablet PO (05:50)
[2023-04-26] MEDS: Gabapentin 100 MG Capsule 200 MG PO ×3 (05:50→20:53)
[2023-04-26] MEDS: Senna/Docusate Sodium 1 Tablet 2 TABLET PO ×2 (05:50→17:53)
[2023-04-26] MEDS: NYSTATIN 500,000 UNIT/5 ML UDC 500000 UNIT PO ×4 (05:52→20:54)
[2023-04-26] MEDS: Menthol/Lanolin/Calamine/Znox 113 GM Tube 1 APPLIC TOPICAL ×3 (05:55→20:54)
[2023-04-26 05:56] VITALS: BP 160/89; PULSE 81
[2023-04-26 09:03] LABS: Absolute Lymphocyte Count 0.68 X10^3/uL (0.83-4.51); Absolute Neutrophil Count 14.3 X10^3/uL (2.0-7.7); Basophil# 0.02 X10^3/uL; Basophil% 0.1 % (0-1); Hemoglobin 10.7 g/dL (13.0-16.5); Lymphocyte # 0.68 X10^3/ul (0.83-4.51); Lymphocyte % 4.1 % (19-41); Mean Corp Hgb Conc 34.5 g/dL (32-36); Mean Corpuscular Hgb 34.3 pg (27.0-32.0); Mean Corpuscular Volume 99.4 fL (80-94); Mean Platelet Vol. 11.1 fl (6.2-12.0); Monocyte# 1.27 X10^3/uL; Monocyte% 7.7 % (0-10); NRBC Flagged by Analyzer 0 % (0-5); Neutrophil # 14.33 X10^3/uL (2.7-7.7); Neutrophil % 87.3 % (47-70); Platelet Count 296 K/mm3 (150-450); RBC Distribution Width CV 16.6 % (11.6-14.6); RBC Distribution Width SD 59.8 fl (35.1-43.9); Red Blood Count 3.12 M/mm3 (4.6-6.2); White Blood Count 16.4 K/mm3 (4.4-11.0)
[2023-04-26] MEDS: Losartan Potassium 100 MG Tablet PO (10:34)
--- NOTE | 2023-04-26 12:00 | NURSING ---
at pt's request, gabapentin increased t0 200 mg TID to match what he had been taking at home
[2023-04-26 14:12] VITALS: BP 147/73; PULSE 71; RESP 14; TEMP 37.1; O2SAT 94
[2023-04-26] MEDS: traMADol 50 MG Tablet PO (17:56)
[2023-04-26] MEDS: Baclofen 10 MG Tablet 5 MG PO (20:53)
[2023-04-26 21:00] VITALS: PULSE 72; RESP 18; O2SAT 93
--- NOTE | 2023-04-27 03:38 | NURSING ---
Awake used urinal, slightly confused as to why he is here. Reoriented and repositioned for bed with call light in reach will continue to monitor.
[2023-04-27] MEDS: traMADol 50 MG Tablet PO ×2 (06:02→12:05)
[2023-04-27] MEDS: Gabapentin 100 MG Capsule 200 MG PO ×3 (06:02→21:25)
[2023-04-27] MEDS: NYSTATIN 500,000 UNIT/5 ML UDC 500000 UNIT PO ×4 (06:03→21:25)
[2023-04-27] MEDS: Losartan Potassium 100 MG Tablet PO (06:03)
[2023-04-27] MEDS: Menthol/Lanolin/Calamine/Znox 113 GM Tube 1 APPLIC TOPICAL ×3 (06:03→21:33)
[2023-04-27] MEDS: Acetaminophen 500 MG Tablet 1000 MG PO ×3 (06:04→21:26)
[2023-04-27] MEDS: Senna/Docusate Sodium 1 Tablet 2 TABLET PO ×2 (06:04→17:14)
[2023-04-27 06:24] LABS: Anion Gap 5 (5-15); BUN 29 mg/dL (7-18); BUN/Creat Ratio 38.6 RATIO (10-20); Calcium,Total 8.4 mg/dL (8.5-10.1); Chloride 109 mmol/L (98-107); Creatinine, Serum 0.75 mg/dL (0.70-1.30); EST Glomerular Filtration Rate 105 mL/min (>60); Est Glom Filt Rate - Afr Amer 127 mL/min (>60); Estimated Creatinine Clearance 43.86 ml/min; Glucose 111 mg/dL (74-106); Sodium Level 140 mmol/L (136-145)
--- NOTE | 2023-04-27 06:45 | NURSING ---
Pt has confusion and forgetfulness this am.
--- NOTE | 2023-04-27 09:00 | NM_ITS ---
CLINICAL: 83-year-old male with suspected skeletal metastatic disease. WHOLE BODY 99m Tc MDP RADIONUCLIDE BONE SCINTIGRAPHY COMPARISON: MRI of the cervical spine report 04/20/2023, plain film radiograph report lumbar spine 04/23/2023 FINDINGS: Following the intravenous administration of 25.9 mCi of 99m Tc MDP, whole body bone images reveal: 1. Increased radiopharmaceutical concentration is defined in the fourth-ninth ribs anteriorly on the left, the left posterior lateral eighth rib, left mid clavicle. 2. Facilitated uptake is noted in the proximal left humeral metaphysis, the right proximal sternum, sacroiliac joints bilaterally and right posterior iliac crest, inferior border of the right scapula. 3. Facilitated uptake is noted in the sternoclavicular compartments of both shoulders, glenohumeral compartment of the right shoulder, the acromioclavicular compartments of both shoulders, the left wrist, fourth thoracic vertebra posteriorly in the midline and 12th thoracic vertebra posteriorly on the right, medial tibial compartment of the left knee. 4. The remaining skeletal structures are scintigraphically unremarkable with normal-appearing renal images and urinary bladder activity identified. NM/Bone Scan Whole Body IMPRESSION: 1. The increase in radiopharmaceutical defined in the left proximal humeral metaphysis, right proximal sternum, right scapula, the right posterior iliac crest and sacroiliac joints bilaterally may be investigated with plain film radiography for further evaluation. 2. The increase in radiopharmaceutical concentration defined in the left anterior and posterior lateral ribs, left mid clavicle is most consistent with trauma-fracture. 3. Degenerative arthrosis is appears expressed in the bilateral shoulders, left wrist, the fourth and 12th thoracic vertebrae, the left knee. 4. Meticulous attention paid to the cervical spine demonstrates no scintigraphic abnormalities. If lytic metastasis is a diagnostic consideration, correlation with FDG PET imaging is recommended. Electronically Signed: Elmer Juan, at 15:15 EDT ,
--- NOTE | 2023-04-27 09:32 | NURSING ---
X Ray Operator Note: Activity Asset: Bela Chaves is independent in his choice of daily activities. His family will visit Daily and when visiting w/them or in therapy he will watch TV or rest he stated he is not interested in out of room activities at this time. His yazidi will visit w/him and he welcomes the Anatomic Pathology Assistant and the therapy dog. Staff will continue to offer him things to do in his room and remind him off group activities.
--- NOTE | 2023-04-27 09:49 | NURSING ---
Called insurance company to check on authorization for bone scan, per them no auth needed for scan. Reference #[id number]
--- NOTE | 2023-04-27 09:52 | PCM.PN.DRR ---
TCU RX Drug Regimen Review Subjective: TCU Admission. 83 YOM presented to the ER with a fall on 04/18 . Hospitalized for fall, sacral fracture, complicated by rhabdomyolysis, possible cervical spine mets. Admitted to TCU on 04/24 with debility for rehab and strengthening. Objective: Allergies No Known Allergies Allergy (Verified 04/18/23 12:27) Current Medications Generic Name Dose Route Start Last Admin Trade Name Freq PRN Reason Stop Dose Admin Acetaminophen 1,000 mg 04/24/23 15:30 04/27/23 06:04 Acetaminophen 500 Mg Tablet PO 1,000 mg Q8 IZZY Administration Baclofen 5 mg 04/24/23 15:21 04/26/23 20:53 Baclofen 10 Mg Tablet PO 5 mg TID PRN Administration MUSCLE SPASM Bisacodyl 10 mg 04/24/23 15:21 Bisacodyl 10 Mg Suppository RC X1 PRN Constipation Calamine/Phenol 1 applic 04/24/23 22:00 04/27/23 06:03 Menthol/Lanolin/Calamine/Znox 113 Gm Tube TOPICAL 1 applic TID IZZY Administration Protocol Gabapentin 200 mg 04/26/23 14:00 04/27/23 06:02 Gabapentin 100 Mg Capsule PO 200 mg TID IZZY Administration Hydrocortisone 1 applic 04/24/23 18:27 Hydrocortisone 2.5% Crm TOPICAL BID PRN PRN RASH/TOPICAL IRRITATION Protocol Losartan Potassium 100 mg 04/26/23 10:00 04/27/23 06:03 Losartan Potassium 100 Mg Tablet PO 100 mg DAILY IZZY Administration Magnesium Hydroxide 30 ml 04/24/23 15:21 Magnesium Hydroxide 30 Ml Udc PO X1 PRN Constipation Nystatin 500,000 unit 04/24/23 17:00 04/27/23 06:03 Nystatin 500,000 Unit/5 Ml Udc PO 05/04/23 17:01 500,000 unit 4X/DAY IZZY Administration Oxycodone HCl 10 mg 04/24/23 15:21 04/25/23 14:46 Oxycodone 5 Mg Tablet PO 10 mg Q4H PRN PRN Administration Pain Score 6-10 Senna/Docusate Sodium 2 tablet 04/24/23 18:00 04/27/23 06:04 Senna/Docusate Sodium 1 Tablet PO 2 tablet BID IZZY Administration Tramadol HCl 50 mg 04/24/23 15:21 04/27/23 06:02 Tramadol 50 Mg Tablet PO 50 mg Q6H PRN PRN Administration Pain Score 1-5 Tuberculin PPD 0.1 ml 05/02/23 10:00 Tuberculin,Purif.Prot.Deriv. 50 Tu/Ml Vial ID 05/02/23 10:01 X1 ONE Problem List (Last Updated 04/24/23 @ 15:[address] 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 (Acute) Hypertension (Chronic) Thrombocytopenia (Acute) Lung nodule seen on imaging study (Acute) Rhabdomyolysis (Acute) Frequent falls (Acute) Sacral fracture, closed (Acute) Debility (Acute) Vital Signs Temp Pulse Resp BP Pulse Ox O2 Del Method 98.7 F 72 18 147/73 H 93 Room Air 04/26/23 14:12 04/26/23 21:00 04/26/23 21:00 04/26/23 14:12 04/26/23 21:00 04/26/23 21:00 Oxygen Delivery Method Room Air Weight: 56.387 kg Body Mass Index (BMI) 18.8 Sodium 140 mmol/L (136-145) 04/27/23 05:24 Potassium 4.0 mmol/L (3.5-5.1) 04/27/23 05:24 Chloride 109 mmol/L (98-107) H 04/27/23 05:24 Carbon Dioxide 26.0 mmol/L (21.0-32.0) 04/27/23 05:24 Anion Gap 5 (5-15) 04/27/23 05:24 BUN 29 mg/dL (7-18) H 04/27/23 05:24 Creatinine 0.75 mg/dL (0.70-1.30) 04/27/23 05:24 Est GFR (MDRD) Af Amer 127 mL/min (>60) 04/27/23 05:24 Est GFR (MDRD) Non-Af 105 mL/min (>60) 04/27/23 05:24 BUN/Creatinine Ratio 38.6 RATIO (10-20) H 04/27/23 05:24 Glucose 111 mg/dL (74-106) H 04/27/23 05:24 Assessment/Plan: 1. Pain: acetaminophen 1000mg PO Q8H, Tramadol 50mg PO Q6H PRN pain (1-5), Oxycodone 10mg PO Q4H PRN pain (6-10). Monitor: pain levels, constipation, drowsiness, respiratory depression, PRN medication use. To date, patient has taken 2 doses of tramadol (pain scale 2-5/10 for knee and back pain) and 2 doses of oxycodone (pain scale 7/10 for back pain). 2. Bowel: senna/docusate 2 tablets PO BID, Dulcolax 10mg RC x 1 PRN constipation, MOM 30ml PO x 1 PRN constipation. Monitor: increased or decreased constipation/diarrhea and PRN usage. To date, patient has had one bowel movement and has not used any of his PRN medications. 3. Hypertension: losartan 100mg PO daily. Monitor: BP (145-160/73-89), HR (68-81), renal function (CrCl 43.86 on 04/26). 4. Muscle spasm: baclofen 5mg PO TID PRN muscle spasm. Monitor: oversedation, frequency of muscle spasms, PRN medication use. To date, patient has received one dose of Baclofen. 5. Thrush: nystatin 500,000units PO 4x/day thru 05/04/23. Monitor: s/s of thrush, nausea, vomiting. 6. Skin integrity/rash: Calmoseptine 1 topical application TID, Hydrocortisone 2.5% topical application BID PRN rash/topical irritation. To date, patient has not used hydrocortisone cream. Assessment/Plan for indications treated with psychotropic medications: 1. Neuropathic pain: gabapentin 200mg PO daily. GDR not recommended as its use for neuropathic pain. Monitor: fatigue, renal function (BEERs medication, dose appropriate for current renal function), fall risk (BEERS Medication), confusion. Medical chart and medication regimen reviewed. The following medication irregularities or issues were identified: *1. 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 Please monitor oversedation with the combination of these medications. Thanks. Date of Note:: 04/27/23
--- NOTE | 2023-04-27 10:33 | NURSING ---
PT DAUGHTER CALLED IN FOR UPDATE ON HER DAD.
--- NOTE | 2023-04-27 10:47 | NURSING ---
Addendum entered by Casey Bello 04/27/23 14:40: CALLED MADE BACK TO OFFICE AND IMMUNIZATIONS UPDATED. Original Note: CALLED MADE TO OFFICE FOR IMMUNIZATION UPDATE. LEFT MESSAGE.
[2023-04-27 14:28] VITALS: BP 128/71; PULSE 69; RESP 16; TEMP 36.6; O2SAT 96
--- NOTE | 2023-04-27 14:42 | CASEMGMT ---
Social Work met with patient to complete initial assessment. Introduced self and role. Discussed code status and MOLST form. Pt confirms DNR-CCA, no intubation. MOLST placed in Dr folder. Educated to [facility] insurance and continued stay is not guaranteed with each review. Two children live out of state, one son lives locally. SW inquired to pt whom is the primary contact. Pt requested to think about it and speak with children, however, repeated that son, Alcon lives locally. SW noted that the order of POA is Andrez Rondon Amy. Pt is leaning toward Alcon as primary contact, but again, would like think about it. SW educated to the reason is relaying all information through one person instead of speaking with multiple children consistently. Pt expressed understanding. SW to continue to follow for DC planning. Carly Alcocer, YIELD ENGINEER CABLE TOWER OPERATOR
[2023-04-27 15:45] VITALS: PULSE 72; RESP 18; O2SAT 94
--- NOTE | 2023-04-27 16:06 | NURSING ---
BONE SCAN ORDERED BY CHECKING FOR BONE MALIGNANCY OR METS.
--- NOTE | 2023-04-27 16:45 | CHAPLAIN ---
Type of Pastoral Visit _x__ Initial Visit ___ Follow-up Visit ___ On-call Visit ___ General Patient Visit ___ Spiritual Assessment ___ Family Conference ___ Bereavement ___ Rapid Response ___ Code Blue ___ Other (describe below) Pastoral Care Referral From _x__ Patient ___ Family ___ Nurse ___ Physician ___ Apartment Hotel Manager ___ Associate Drafter ___ Other (describe below) Sacrament/Intervention _x__ Active listening ___ Anointing ___ Restorationist ___ Bereavement ___ Communion _x__ Anna exploration ___ _x__ Life review _x__ Prayer ___ Reconciliation ___ Sacrament of Sick _x__ Supportive presence ___ Wedding ___ Other (describe below) Pastoral Comments patient is very welcoming and invites this bus analyst to visit; pt talks about how kind everyone is in the TCU and that he believes he can get better with help from therapy; pt admits that therapy so far is 'breaking me down' but thinks he must go through it to get better; pt repeats that I have to try and keep going, right?; pt has family support and uses his attitude of positivity and work ethic to persevere; pt retired only at age 72 and believes in being productive; pt welcomes prayer and presence of this bus analyst
[2023-04-27] MEDS: Hydrocortisone 2.5% Crm 1 APPLIC TOPICAL (17:10)
--- NOTE | 2023-04-27 20:24 | NURSING ---
Pt's daughter, Heather Patel, called unit requesting an update. She is on the list of contacts. She was concerned thinking he was experiencing increased confusion and was asked by a staff member earlier today during a phone conversation if he had a hx of dementia. She has been attempting to contact him today via his room phone and has not been able to get through. This nurse spoke w/ pt briefly earlier this shift when assisting w/ toileting. Pt's speech was clear. Verbalized complete thoughts well. Expressed his frustration w/ pain as a result from his fall with active listening and emotional support provided. Heather expresses appreciation for update.
[2023-04-28] MEDS: Baclofen 10 MG Tablet 5 MG PO (04:57)
[2023-04-28] MEDS: traMADol 50 MG Tablet PO (04:58)
[2023-04-28] MEDS: Acetaminophen 500 MG Tablet 1000 MG PO ×3 (04:58→21:18)
[2023-04-28] MEDS: NYSTATIN 500,000 UNIT/5 ML UDC 500000 UNIT PO ×4 (04:59→21:18)
[2023-04-28] MEDS: Senna/Docusate Sodium 1 Tablet 2 TABLET PO ×2 (04:59→18:16)
[2023-04-28] MEDS: Losartan Potassium 100 MG Tablet PO (04:59)
[2023-04-28] MEDS: Gabapentin 100 MG Capsule 200 MG PO ×3 (05:06→21:18)
[2023-04-28] MEDS: Menthol/Lanolin/Calamine/Znox 113 GM Tube 1 APPLIC TOPICAL ×3 (05:06→21:15)
[2023-04-28] MEDS: oxyCODONE 5 MG Tablet 10 MG PO (08:05)
[2023-04-28 13:19] VITALS: BMI 17.5
--- NOTE | 2023-04-28 13:41 | NURSING ---
PT COUGHING ON HIS LUNCH. LUNGS CLEAR. WILL CONTINUE TO MONITOR. RN AWARE
--- NOTE | 2023-04-28 14:52 | NURSING ---
K PAD TO PT BACK DUE TO PAIN INCREASE. FAMILY STATED ITS WORTH A TRY.
[2023-04-28 14:59] VITALS: BP 150/73; PULSE 68; RESP 12; TEMP 37.2; O2SAT 95
[2023-04-28] MEDS: MethylPREDNISolone DosePak 4 MG BOX PO ×2 (18:17→21:15)
--- NOTE | 2023-04-28 20:09 | NURSING ---
CALLED AND UPDATED PT SON BLAKE AND ANSWERED HIS MANY QUESTIONS THE BEST I COULD AND STATED THAT HE HAS A PLAN OF CARE MEETING TOMORROW WITH STAFF AND THEY CAN ALSO ANSWER HIS QUESTIONS. PT SON ALSO WANTS TO CALL HIM TOMORROW AFTERNOON,HAS QUESTIONS. NOTE LEFT FOR . PT SON THANKED THIS NURSE
[2023-04-28 20:48] VITALS: PULSE 68
[2023-04-29] MEDS: Menthol/Lanolin/Calamine/Znox 113 GM Tube 1 APPLIC TOPICAL ×3 (06:21→21:32)
[2023-04-29] MEDS: Losartan Potassium 100 MG Tablet PO (06:21)
[2023-04-29] MEDS: Gabapentin 100 MG Capsule 200 MG PO (06:22)
[2023-04-29] MEDS: NYSTATIN 500,000 UNIT/5 ML UDC 500000 UNIT PO ×4 (06:22→21:32)
[2023-04-29] MEDS: Senna/Docusate Sodium 1 Tablet 2 TABLET PO ×2 (06:22→17:30)
[2023-04-29] MEDS: Acetaminophen 500 MG Tablet 1000 MG PO ×3 (06:22→21:31)
[2023-04-29] MEDS: traMADol 50 MG Tablet PO (09:05)
[2023-04-29] MEDS: MethylPREDNISolone DosePak 4 MG BOX PO ×4 (09:06→21:31)
--- NOTE | 2023-04-29 10:45 | CASEMGMT ---
Addendum entered by Carly Alcocer 04/29/23 13:46: SW received call from son, Alcon, requesting to speak further about SNF options. SW answered questions and educated to options. Offered to send list of SNFs in [facility] to son to review. Son agreed and provided email, while also requesting referral to [facility] and [facility]. SW educated to [facility] or [facility] typically not accepting x2 assist, and pt would most likely be more appropriate for SNFs. Son expressed understanding. SNF list sent to son with quality and resource data via [employer]. SW to referral to [facility] via [employer]. Original Note: Social Work IDT met with patient, son Alcon and JUAN M, and dtr and son via conference call for care plan meeting. Discussed patient's progress in PT/OT/ST/SN. Educated to [facility] insurance with NRD 05/08 with EDC 05/11, with $0 noted copay; continued stay is not guaranteed with each review. Broached topic of having an alternate DC plan as pain is limiting cognitive and physical abilities to be home alone; currently x2 assist and managing pain. Pt also has a split-level house. Offered ongoing family therapy training. Educated to home with 24/7 care if pt can be a one person assist vs SNF with higher level of care. Explained appeal rights from the insurance. Answered family's questions. Dtr did not have questions, son Andrez asked clarifying questions as unsure of insurance process and why pt is not making improvements or participating in therapy sessions the full amount; carlos enrique Rondon and JUAN M Mcclain, asked questions and took notes, and expressed gratitude for answers and care provided to pt. Alcon noted the family has a group text message and confirmed he is the primary contact for questions and updates. SW offered ongoing assistance with DC planning. Carly Alcocer, BETY PEREZW
[2023-04-29] MEDS: oxyCODONE 5 MG Tablet PO (12:04)
[2023-04-29] MEDS: Gabapentin 300 MG Capsule PO ×2 (13:41→21:31)
[2023-04-29 15:33] VITALS: BP 105/59; PULSE 74; RESP 16; TEMP 36.8; O2SAT 97
[2023-04-30] MEDS: Gabapentin 300 MG Capsule PO ×3 (05:07→20:50)
[2023-04-30] MEDS: Senna/Docusate Sodium 1 Tablet 2 TABLET PO ×2 (05:07→17:15)
[2023-04-30] MEDS: Losartan Potassium 100 MG Tablet PO (05:07)
[2023-04-30] MEDS: NYSTATIN 500,000 UNIT/5 ML UDC 500000 UNIT PO ×4 (05:07→20:54)
[2023-04-30] MEDS: Menthol/Lanolin/Calamine/Znox 113 GM Tube 1 APPLIC TOPICAL ×3 (05:08→20:55)
[2023-04-30] MEDS: Acetaminophen 500 MG Tablet 1000 MG PO ×3 (05:08→20:50)
[2023-04-30] MEDS: Magnesium Hydroxide 30 ML UDC PO (05:10)
[2023-04-30 05:16] VITALS: BP 132/62; PULSE 68
[2023-04-30] MEDS: traMADol 50 MG Tablet PO (07:49)
[2023-04-30] MEDS: MethylPREDNISolone DosePak 4 MG BOX PO ×4 (07:49→20:50)
--- NOTE | 2023-04-30 10:26 | NURSING ---
Daughter Heather called to check on patient at this time. Updated daughter that patient did not sleep well last night, but patient was in good spirts.
[2023-04-30 12:23] VITALS: PULSE 73; RESP 16; O2SAT 96
[2023-04-30] MEDS: Bisacodyl 10 MG Suppository RC (13:25)
--- NOTE | 2023-04-30 13:38 | MDS.RN ---
MDS pain interview for argenis 05/01/23 completed.
[2023-04-30 15:27] VITALS: BP 151/74; PULSE 79; RESP 18; TEMP 36.9; O2SAT 95
[2023-05-01] MEDS: Menthol/Lanolin/Calamine/Znox 113 GM Tube 1 APPLIC TOPICAL ×3 (06:16→21:51)
[2023-05-01] MEDS: NYSTATIN 500,000 UNIT/5 ML UDC 500000 UNIT PO ×4 (06:19→21:52)
[2023-05-01] MEDS: Losartan Potassium 100 MG Tablet PO (06:20)
[2023-05-01] MEDS: Senna/Docusate Sodium 1 Tablet 2 TABLET PO ×2 (06:20→17:05)
[2023-05-01] MEDS: Acetaminophen 500 MG Tablet 1000 MG PO ×3 (06:21→21:51)
[2023-05-01] MEDS: Gabapentin 300 MG Capsule PO ×3 (06:24→21:51)
[2023-05-01] MEDS: MethylPREDNISolone DosePak 4 MG BOX PO ×3 (06:59→21:51)
[2023-05-01] MEDS: Magnesium Hydroxide 30 ML UDC PO (09:52)
--- NOTE | 2023-05-01 12:00 | CASEMGMT ---
Social Work [facility] can accept pt. SW met with pt's son and DIL to update. Both agreeable to placement. SW provided private pay rate given by Annette and other son to provide payment at [place]. Answered other questions. Family appreciative. Carly Alcocer, HOSPITAL CLEANING SPECIALIST RADIOLOGY SPECIALIST
--- NOTE | 2023-05-01 12:01 | CASEMGMT ---
Social Work BIMS (10/30) and PHQ-9 (02/09) completed for MDS assessment. Caryl Alcocer MSW TEXTILE TECHNICAL OFFICER
[2023-05-01 15:55] VITALS: BP 129/72; PULSE 67; RESP 15; TEMP 37.1; O2SAT 98
--- NOTE | 2023-05-01 16:00 | CPS ---
D/C'd IS/PEP order, pt came from [facility] and already been checked off 6x. Pt also has IS/PEP at bedside
[2023-05-01] MEDS: Baclofen 10 MG Tablet 5 MG PO (17:16)
[2023-05-02 00:20] LABS: Bacteria 0 SEEN /hpf (None Seen); Mucous, Urine 0 SEEN /hpf (<or=2+); Red Blood Cells-Urine 0 SEEN /hpf (0-5); Squamous Epithelial Cells - UA 0 SEEN /hpf (0-5); White Blood Cells 0 SEEN /hpf (0-5)
[2023-05-02 00:24] LABS: Color, Urine Yellow (Yellow); Glucose, Dipstick Normal (Normal); Ketone-Dipstick Negative (Negative); Leukocyte Esterase-Dipstick Negative /ul (Negative); Nitrite-Dipstick Negative (Negative); Occult Blood-Urine Negative /ul (Negative); Protein-Dipstick 15 mg/dl (Negative); Urine Bilirubin Dipstick Negative (Negative); Urine Clarity Clear (Clear); Urine Urobilinogen Normal (Normal)
[2023-05-02] MEDS: Menthol/Lanolin/Calamine/Znox 113 GM Tube 1 APPLIC TOPICAL ×3 (06:11→21:54)
[2023-05-02] MEDS: Gabapentin 300 MG Capsule PO ×3 (06:11→21:57)
[2023-05-02] MEDS: Senna/Docusate Sodium 1 Tablet 2 TABLET PO ×2 (06:12→16:48)
[2023-05-02] MEDS: NYSTATIN 500,000 UNIT/5 ML UDC 500000 UNIT PO ×4 (06:12→21:54)
[2023-05-02] MEDS: Losartan Potassium 100 MG Tablet PO (06:12)
[2023-05-02] MEDS: Acetaminophen 500 MG Tablet 1000 MG PO ×3 (06:12→21:54)
[2023-05-02 08:10] LABS: Absolute Lymphocyte Count 1.14 X10^3/uL (0.83-4.51); Absolute Neutrophil Count 15.4 X10^3/uL (2.0-7.7); Basophil# 0.05 X10^3/uL; Basophil% 0.3 % (0-1); Eosinophil# 0.04 X10^3/uL; Eosinophils% 0.2 % (0-5); Hematocrit 31.3 % (40-54); Hemoglobin 10.2 g/dL (13.0-16.5); Lymphocyte # 1.14 X10^3/ul (0.83-4.51); Mean Corp Hgb Conc 32.6 g/dL (32-36); Mean Corpuscular Hgb 33.6 pg (27.0-32.0); Mean Platelet Vol. 10.8 fl (6.2-12.0); Monocyte# 2.04 X10^3/uL; Monocyte% 10.7 % (0-10); NRBC Flagged by Analyzer 0 % (0-5); Neutrophil # 15.42 X10^3/uL (2.7-7.7); Neutrophil % 81.1 % (47-70); POSITIVE DIFFERENTIAL YES; Platelet Count 498 K/mm3 (150-450); RBC Distribution Width CV 16.5 % (11.6-14.6); RBC Distribution Width SD 62.4 fl (35.1-43.9); Red Blood Count 3.04 M/mm3 (4.6-6.2)
[2023-05-02 08:11] LABS: Differential Indicated SCAN CRITERIA MET
[2023-05-02 08:22] LABS: Anion Gap 4 (5-15); BUN 27 mg/dL (7-18); BUN/Creat Ratio 34.6 RATIO (10-20); Calcium,Total 8.9 mg/dL (8.5-10.1); Chloride 102 mmol/L (98-107); Creatinine, Serum 0.78 mg/dL (0.70-1.30); EST Glomerular Filtration Rate 101 mL/min (>60); Est Glom Filt Rate - Afr Amer 122 mL/min (>60); Estimated Creatinine Clearance 40.64 ml/min; Glucose 94 mg/dL (74-106); Potassium 4.7 mmol/L (3.5-5.1); Sodium Level 135 mmol/L (136-145)
[2023-05-02] MEDS: MethylPREDNISolone DosePak 4 MG BOX PO ×2 (09:47→21:53)
--- NOTE | 2023-05-02 10:28 | NURSING ---
Call from daughter Heather listed in contacts. Update given.
[2023-05-02] MEDS: Tuberculin,Purif.prot.deriv. 50 TU/ML Vial 0.1 ML ID (10:56)
[2023-05-02 15:11] VITALS: BP 124/66; PULSE 69; RESP 16; TEMP 36.3; O2SAT 98
[2023-05-02 22:00] VITALS: PULSE 74; RESP 16; O2SAT 97
[2023-05-03] MEDS: Senna/Docusate Sodium 1 Tablet 2 TABLET PO ×2 (05:37→17:26)
[2023-05-03] MEDS: Losartan Potassium 100 MG Tablet PO (05:38)
[2023-05-03] MEDS: Menthol/Lanolin/Calamine/Znox 113 GM Tube 1 APPLIC TOPICAL ×3 (05:38→21:38)
[2023-05-03] MEDS: Acetaminophen 500 MG Tablet 1000 MG PO ×3 (05:38→21:39)
[2023-05-03] MEDS: NYSTATIN 500,000 UNIT/5 ML UDC 500000 UNIT PO ×4 (05:38→21:39)
[2023-05-03] MEDS: Gabapentin 300 MG Capsule PO ×3 (05:40→21:39)
[2023-05-03] MEDS: MethylPREDNISolone DosePak 4 MG BOX PO (07:46)
[2023-05-03] MEDS: oxyCODONE 5 MG Tablet PO (07:48)
[2023-05-03 09:28] VITALS: BP 106/51; PULSE 71; RESP 17; TEMP 36.7; O2SAT 95
--- NOTE | 2023-05-03 16:55 | NURSING ---
Patient's son approach RN in [facility]. Update given per request. Son requesting patient to be checked on with all meal. Son states he witnessed patient choking and stated some concern. Reassurance given to son. RN confirmed speech therapy consulted to see patient.
--- NOTE | 2023-05-03 21:13 | NURSING ---
Paged Dr. Edge w/ immediate return call. Pt requesting an order for pain cream to neck. New order received and read back for Arthritis Compound cream 2 clicks BID.
[2023-05-04] MEDS: Senna/Docusate Sodium 1 Tablet 2 TABLET PO ×2 (06:45→17:21)
[2023-05-04] MEDS: NYSTATIN 500,000 UNIT/5 ML UDC 500000 UNIT PO ×3 (06:45→17:21)
[2023-05-04] MEDS: Losartan Potassium 100 MG Tablet PO (06:45)
[2023-05-04] MEDS: Acetaminophen 500 MG Tablet 1000 MG PO ×3 (06:45→21:06)
[2023-05-04] MEDS: Gabapentin 300 MG Capsule PO ×3 (06:47→21:06)
[2023-05-04] MEDS: Arthritis Pain Compound 60 CLICK TUBE TOPICAL ×2 (06:53→17:21)
[2023-05-04] MEDS: Menthol/Lanolin/Calamine/Znox 113 GM Tube 1 APPLIC TOPICAL ×3 (06:55→21:10)
[2023-05-04] MEDS: traMADol 50 MG Tablet PO (12:19)
[2023-05-04 12:59] LABS: Pathologist Review Reviewed
[2023-05-04 15:22] VITALS: BP 124/66; PULSE 74; RESP 16; TEMP 36.7
[2023-05-04 21:11] VITALS: O2SAT 95
[2023-05-05] MEDS: traMADol 50 MG Tablet PO ×3 (04:55→23:24)
[2023-05-05] MEDS: Acetaminophen 500 MG Tablet 1000 MG PO ×3 (04:56→21:10)
[2023-05-05] MEDS: Senna/Docusate Sodium 1 Tablet 2 TABLET PO ×2 (04:56→17:21)
[2023-05-05] MEDS: Arthritis Pain Compound 60 CLICK TUBE TOPICAL ×2 (04:57→17:19)
[2023-05-05] MEDS: Losartan Potassium 100 MG Tablet PO (04:57)
[2023-05-05] MEDS: Menthol/Lanolin/Calamine/Znox 113 GM Tube 1 APPLIC TOPICAL ×3 (05:00→21:10)
[2023-05-05] MEDS: Gabapentin 300 MG Capsule PO ×3 (05:00→21:10)
[2023-05-05 05:01] VITALS: BP 112/63; PULSE 67
--- NOTE | 2023-05-05 12:15 | NURSING ---
Pt in room eating lunch bed only at 45 degrees. Pt educated on importance of sitting up at 90 degrees. Pt and son refused pt to sit up any higher. Son stated he will just put his head down lower then it is now. Will continue to monitor. Call light within reach.
[2023-05-05 14:31] VITALS: BP 117/65; PULSE 85; RESP 16; TEMP 36.8; O2SAT 98
[2023-05-05 15:10] VITALS: BMI 15.7
[2023-05-06] MEDS: oxyCODONE 5 MG Tablet PO ×2 (06:13→21:21)
[2023-05-06] MEDS: Acetaminophen 500 MG Tablet 1000 MG PO ×3 (06:14→21:20)
[2023-05-06] MEDS: Losartan Potassium 100 MG Tablet PO (06:15)
[2023-05-06] MEDS: Senna/Docusate Sodium 1 Tablet 2 TABLET PO ×2 (06:15→17:49)
[2023-05-06] MEDS: Gabapentin 300 MG Capsule PO ×3 (06:15→21:21)
[2023-05-06] MEDS: Arthritis Pain Compound 60 CLICK TUBE TOPICAL ×2 (06:16→17:48)
[2023-05-06] MEDS: Menthol/Lanolin/Calamine/Znox 113 GM Tube 1 APPLIC TOPICAL ×3 (06:20→21:25)
--- NOTE | 2023-05-06 07:42 | MDS.RN ---
Information for the mds was obtained from review of the clinical record, interview of resident, staff, and direct observation of resident's care.
--- NOTE | 2023-05-06 09:07 | NURSING ---
offered pain med, pt declined. states he is comfortable right now, resting in bed, call light in reach. son from [place] at bedside
[2023-05-06 14:55] VITALS: BP 143/53; PULSE 59; RESP 16; TEMP 36.7; O2SAT 95
--- NOTE | 2023-05-06 15:37 | CHAPLAIN ---
Type of Pastoral Visit ___ Initial Visit _x__ Follow-up Visit ___ On-call Visit ___ General Patient Visit ___ Spiritual Assessment ___ Family Conference ___ Bereavement ___ Rapid Response ___ Code Blue ___ Other (describe below) Pastoral Care Referral From _x__ Patient ___ Family ___ Nurse ___ Physician ___ Crm Marketing Specialist ___ Electric Arc Welder ___ Other (describe below) Sacrament/Intervention _x__ Active listening ___ Anointing ___ Uatsdin ___ Bereavement ___ Communion ___ Anna exploration ___ _x__ Life review _x__ Prayer ___ Reconciliation ___ Sacrament of Sick _x__ Supportive presence ___ Wedding ___ Other (describe below) Pastoral Comments patient is lying in bed and alert; pt is welcoming and asks this field rep about his life and family; pt explains his status, desire to keep active if possible, and his work ethic; pt has good family support and friends as evidenced by many cards, de luna, and balloons in the room and his word; pt welcomes presence and prayer
[2023-05-06] MEDS: Baclofen 10 MG Tablet 5 MG PO (21:21)
[2023-05-06 22:46] VITALS: O2SAT 94
[2023-05-07] MEDS: Acetaminophen 500 MG Tablet 1000 MG PO ×3 (05:25→21:24)
[2023-05-07] MEDS: Gabapentin 300 MG Capsule PO ×3 (05:25→21:23)
[2023-05-07] MEDS: oxyCODONE 5 MG Tablet PO (05:25)
[2023-05-07] MEDS: Losartan Potassium 100 MG Tablet PO (05:26)
[2023-05-07] MEDS: Arthritis Pain Compound 60 CLICK TUBE TOPICAL ×2 (05:26→14:46)
[2023-05-07] MEDS: Senna/Docusate Sodium 1 Tablet 2 TABLET PO ×2 (05:26→14:55)
[2023-05-07] MEDS: Menthol/Lanolin/Calamine/Znox 113 GM Tube 1 APPLIC TOPICAL ×3 (05:29→21:24)
--- NOTE | 2023-05-07 08:43 | CASEMGMT ---
Addendum entered by Carly Alcocer 05/07/23 16:03: Received return call from Jennifer at [facility] and are unable to accept d/t to needing higher level of care than they can provide. SW left voicemail with son. Original Note: Social Work Received voicemail from son that he had been notified by therapy that pt is now x1 assist and is requesting referral to [facility] now. SW sent referral via [facility] and fax to [facility]. Will continue to follow. Carly Alcocer, STAND UP COMEDIAN BUS CLEANER
[2023-05-07] MEDS: traMADol 50 MG Tablet PO (10:14)
[2023-05-07 14:15] VITALS: BP 123/70; PULSE 88; RESP 15; TEMP 36.7; O2SAT 95
[2023-05-08] MEDS: Gabapentin 300 MG Capsule PO ×3 (05:07→21:28)
[2023-05-08] MEDS: Menthol/Lanolin/Calamine/Znox 113 GM Tube 1 APPLIC TOPICAL ×3 (05:07→21:28)
[2023-05-08] MEDS: Arthritis Pain Compound 60 CLICK TUBE TOPICAL ×2 (05:07→17:34)
[2023-05-08] MEDS: Senna/Docusate Sodium 1 Tablet 2 TABLET PO ×2 (05:08→17:34)
[2023-05-08] MEDS: Losartan Potassium 100 MG Tablet PO (05:08)
[2023-05-08] MEDS: Acetaminophen 500 MG Tablet 1000 MG PO ×3 (05:08→21:28)
--- NOTE | 2023-05-08 06:27 | NURSING ---
Pt having c/o painful urination this am. Attempted self transfers through HS with mild episodes of confusion, easily reoriented.
[2023-05-08] MEDS: Ciprofloxacin 500 MG Tablet PO ×2 (08:48→17:34)
[2023-05-08 09:04] LABS: Bacteria 0 SEEN /hpf (None Seen); Mucous, Urine 0 SEEN /hpf (<or=2+); Red Blood Cells-Urine 0 SEEN /hpf (0-5); Squamous Epithelial Cells - UA 0 SEEN /hpf (0-5); White Blood Cells 0 SEEN /hpf (0-5)
[2023-05-08 09:05] LABS: Color, Urine Yellow (Yellow); Glucose, Dipstick Normal (Normal); Ketone-Dipstick Negative (Negative); Leukocyte Esterase-Dipstick Negative /ul (Negative); Nitrite-Dipstick Negative (Negative); Occult Blood-Urine Negative /ul (Negative); Protein-Dipstick Negative (Negative); Urine Bilirubin Dipstick Negative (Negative); Urine Clarity Clear (Clear); Urine Urobilinogen Normal (Normal)
--- NOTE | 2023-05-08 11:19 | CASEMGMT ---
Social Work Received outcome from insurance and pt was approved with NRD 05/12 with EDC 05/15 to allow more time for pt to improve with the desire to transition to [facility]. Son appreciative. SW updated [facility] and [facility]. Will continue to follow. Carly Alcocer, POST HOLE DIGGER DEBARKER OPERATOR
[2023-05-08] MEDS: traMADol 50 MG Tablet PO (11:35)
[2023-05-08] MEDS: Magnesium Hydroxide 30 ML UDC PO (13:08)
[2023-05-08 14:46] VITALS: BP 117/68; PULSE 64; RESP 18; TEMP 36.5; O2SAT 95
[2023-05-08 20:25] VITALS: PULSE 76; RESP 16; O2SAT 95
[2023-05-09] MEDS: Acetaminophen 500 MG Tablet 1000 MG PO ×3 (04:54→22:15)
[2023-05-09] MEDS: Senna/Docusate Sodium 1 Tablet 2 TABLET PO ×2 (04:54→17:23)
[2023-05-09] MEDS: Arthritis Pain Compound 60 CLICK TUBE TOPICAL ×2 (04:55→17:22)
[2023-05-09] MEDS: Gabapentin 300 MG Capsule PO ×3 (04:55→22:15)
[2023-05-09] MEDS: Ciprofloxacin 500 MG Tablet PO ×2 (04:55→17:23)
[2023-05-09] MEDS: Losartan Potassium 100 MG Tablet PO (04:55)
[2023-05-09] MEDS: Menthol/Lanolin/Calamine/Znox 113 GM Tube 1 APPLIC TOPICAL ×3 (04:56→22:18)
[2023-05-09 05:13] VITALS: BP 136/72; PULSE 73
[2023-05-09 08:13] LABS: Absolute Lymphocyte Count 1.56 X10^3/uL (0.83-4.51); Absolute Neutrophil Count 8.2 X10^3/uL (2.0-7.7); Basophil# 0.05 X10^3/uL; Basophil% 0.4 % (0-1); Eosinophil# 0.22 X10^3/uL; Eosinophils% 1.9 % (0-5); Hematocrit 33.7 % (40-54); Hemoglobin 10.8 g/dL (13.0-16.5); Lymphocyte # 1.56 X10^3/ul (0.83-4.51); Lymphocyte % 13.8 % (19-41); Mean Corpuscular Hgb 33.4 pg (27.0-32.0); Mean Corpuscular Volume 104.3 fL (80-94); Mean Platelet Vol. 10.1 fl (6.2-12.0); Monocyte# 1.25 X10^3/uL; Monocyte% 11.1 % (0-10); NRBC Flagged by Analyzer 0 % (0-5); Neutrophil # 8.15 X10^3/uL (2.7-7.7); Neutrophil % 72.3 % (47-70); Platelet Count 435 K/mm3 (150-450); RBC Distribution Width CV 16.7 % (11.6-14.6); Red Blood Count 3.23 M/mm3 (4.6-6.2); White Blood Count 11.3 K/mm3 (4.4-11.0)
[2023-05-09 09:06] LABS: Anion Gap 6 (5-15); BUN 31 mg/dL (7-18); BUN/Creat Ratio 39.9 RATIO (10-20); Chloride 109 mmol/L (98-107); Creatinine, Serum 0.78 mg/dL (0.70-1.30); EST Glomerular Filtration Rate 101 mL/min (>60); Est Glom Filt Rate - Afr Amer 123 mL/min (>60); Estimated Creatinine Clearance 36.76 ml/min; Glucose 86 mg/dL (74-106); Potassium 4.5 mmol/L (3.5-5.1); Sodium Level 144 mmol/L (136-145)
[2023-05-09 16:00] VITALS: BP 105/51; PULSE 73; RESP 14; TEMP 36.3; O2SAT 100
--- NOTE | 2023-05-09 16:26 | PCA ---
This am when getting pt. ready he had no clean socks and he made us take the ones he had on off cause he had them on the day before so we put our slipper socks on his feet and asked if that was ok he stated yes that would be fine and he also wanted us to put him in his chair with his pants at his knees so he could easily use his urinal so we did and pt. later told molder closed molds to pull his pants up and that we would not put his own socks on his feet . Family called and reported resident wanted his pants on and wanted his personal socks on instead of gripper socks. Resident did not have any clean socks at this time but this CHUCK WAGON DRIVER went to assist resident in pulling up pants, family did bring in own socks after lunch and new socks were put on. No further complaints at this time, resident denies additional needs.
[2023-05-10] MEDS: Gabapentin 300 MG Capsule PO ×3 (05:14→22:01)
[2023-05-10] MEDS: Menthol/Lanolin/Calamine/Znox 113 GM Tube 1 APPLIC TOPICAL ×3 (05:15→22:02)
[2023-05-10] MEDS: Arthritis Pain Compound 60 CLICK TUBE TOPICAL ×2 (05:16→18:27)
[2023-05-10] MEDS: Acetaminophen 500 MG Tablet 1000 MG PO ×3 (05:17→22:02)
[2023-05-10] MEDS: Senna/Docusate Sodium 1 Tablet 2 TABLET PO ×2 (05:18→18:27)
[2023-05-10] MEDS: Losartan Potassium 100 MG Tablet PO (05:18)
[2023-05-10] MEDS: Ciprofloxacin 500 MG Tablet PO ×2 (05:18→18:27)
[2023-05-10 05:54] VITALS: BP 133/72; PULSE 96; RESP 16
[2023-05-10 15:23] VITALS: BP 137/61; PULSE 80; RESP 16; TEMP 36.7; O2SAT 97
[2023-05-10 22:09] VITALS: PULSE 79; RESP 16; O2SAT 97
[2023-05-11] MEDS: Arthritis Pain Compound 60 CLICK TUBE TOPICAL ×2 (06:00→14:06)
[2023-05-11] MEDS: Ciprofloxacin 500 MG Tablet PO (06:01)
[2023-05-11] MEDS: Acetaminophen 500 MG Tablet 1000 MG PO ×3 (06:01→21:00)
[2023-05-11] MEDS: Menthol/Lanolin/Calamine/Znox 113 GM Tube 1 APPLIC TOPICAL ×3 (06:01→21:00)
[2023-05-11] MEDS: Senna/Docusate Sodium 1 Tablet 2 TABLET PO ×2 (06:02→16:35)
[2023-05-11] MEDS: Losartan Potassium 100 MG Tablet PO (06:02)
[2023-05-11] MEDS: Gabapentin 300 MG Capsule PO ×3 (06:03→21:00)
[2023-05-11] MEDS: Phenazopyridine 95 MG Tablet 190 MG PO ×3 (10:49→21:00)
[2023-05-11 16:00] VITALS: BP 132/62; PULSE 82; RESP 16; TEMP 36.3; O2SAT 98
[2023-05-12 01:20] LABS: Mucous, Urine 0 SEEN /hpf (<or=2+); Red Blood Cells-Urine 0 SEEN /hpf (0-5); Squamous Epithelial Cells - UA 0 SEEN /hpf (0-5)
[2023-05-12 01:25] LABS: Color, Urine Amber (Yellow); Glucose, Dipstick Normal (Normal); Ketone-Dipstick Negative (Negative); Leukocyte Esterase-Dipstick 25 /ul (Negative); Nitrite-Dipstick Positive (Negative); Occult Blood-Urine Negative /ul (Negative); Protein-Dipstick Negative (Negative); Urine Clarity Clear (Clear); Urine Urobilinogen 4 mg/dl (Normal)
[2023-05-12 01:26] LABS: Urine Bilirubin Dipstick 3 mg/dL (Negative)
[2023-05-12 02:01] LABS: White Blood Cells 0-5 SEEN /hpf (0-5)
[2023-05-12 02:02] LABS: Bacteria RARE /hpf (None Seen)
[2023-05-12] MEDS: Arthritis Pain Compound 60 CLICK TUBE TOPICAL ×2 (06:23→17:20)
[2023-05-12] MEDS: Phenazopyridine 95 MG Tablet 190 MG PO ×3 (06:23→21:13)
[2023-05-12] MEDS: Senna/Docusate Sodium 1 Tablet 2 TABLET PO ×2 (06:23→17:20)
[2023-05-12] MEDS: Acetaminophen 500 MG Tablet 1000 MG PO ×3 (06:23→21:13)
[2023-05-12] MEDS: Losartan Potassium 100 MG Tablet PO (06:24)
[2023-05-12] MEDS: Menthol/Lanolin/Calamine/Znox 113 GM Tube 1 APPLIC TOPICAL ×3 (06:24→21:20)
[2023-05-12] MEDS: Gabapentin 300 MG Capsule PO ×3 (06:26→21:13)
[2023-05-12 06:27] VITALS: BP 133/83; PULSE 70
[2023-05-12] MEDS: Smz/Tmp Ds Tablet 1 TABLET PO (09:51)
[2023-05-12 10:23] VITALS: BMI 15.9
--- NOTE | 2023-05-12 11:34 | CASEMGMT ---
Addendum entered by Carly Alcocer 05/12/23 15:15: [facility] can accept pt. LISBETH spoke with both son's via phone. Andrez to speak with therapy prior to making appeal and to [facility] for pricing. Will continue to follow. Original Note: Social Work Insurance issued LCD 05/14, DC 05/15. LISBETH phoned son, Alcon, to update and son requested to call brother, Jose David, to complete the appeal. LISBETH left voicemail with son, Jose David. LISBETH spoke with pt and pt agreeable to appeal. LISBETH faxed updated clinicals to [facility] and notified [facility] of DC date. Will continue to follow. Plan: DC to [facility], nonskilled on 05/15, pending appeal BETY MartinezW
[2023-05-12 15:05] VITALS: BP 114/70; PULSE 86; RESP 15; TEMP 36.5; O2SAT 90
[2023-05-12] MEDS: Smz/Tmp Ds Tablet 0.5 TABLET PO (17:20)
[2023-05-12] MEDS: traMADol 50 MG Tablet PO (21:16)
[2023-05-12] MEDS: Baclofen 10 MG Tablet 5 MG PO (21:16)
--- NOTE | 2023-05-12 21:42 | PCM.DC.SUM ---
Providers Date of Admission: 04/24/23 Primary Care Physician: Dr. Piero Ngo MD Reason For Visit: RHABDO,BILATERAL SACRAL FRACTURE Diagnosis Discharge Diagnosis (1) Debility: Status: Inactive Code(s): R53.81 - Other malaise (2) Frequent falls: Status: Inactive Code(s): R29.6 - Repeated falls (3) Rhabdomyolysis: Status: Resolved Code(s): M62.82 - Rhabdomyolysis (4) Lung nodule seen on imaging study: Status: Inactive Code(s): R91.1 - Solitary pulmonary nodule (5) Sacral fracture, closed: Status: Inactive Code(s): S32.10XA - Unspecified fracture of sacrum, initial encounter for closed fracture (6) Thrombocytopenia: Status: Acute Code(s): D69.6 - Thrombocytopenia, unspecified (7) Hypertension: Status: Chronic Code(s): I10 - Essential (primary) hypertension (8) 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 Debility - PT/OT. Cognition - ST. Pain - Tylenol 1000mg q8, Tramadol 50mg q6h prn pain (1-5), Oxycodone 10mg q4h prn pain (6-10). Bowel - senna/colace 2 tablets bid, Dulcolax 10mg pr x 1 prn, MOM 30ml po x 1 prn. Adult immunization - Administer pneumonia vaccine, covid19 vaccine, flu vaccine as appropriate. DVT prophylaxis - Hold, monitor. Hypertension - Lisinopril 10mg daily Neuropathic pain - Gabapentin 200mg daily. Muscle spasm - Baclofen 5mg tid prn. Rule out cervical spine metastasis - PSA, CEA pending, order nuclear medicine bone scan. Thrush - Nystatin swish and swallow x 10 days. Medications at Discharge Home Medications acetaminophen 500 mg tablet 1,000 mg PO Q8 #0 tabs 05/12/23 baclofen 10 mg tablet 5 mg PO TID PRN Muscle Spasm 30 days #90 tabs 05/12/23 gabapentin 300 mg capsule 300 mg PO TID 30 days #90 caps 05/12/23 losartan 100 mg tablet 100 mg PO DAILY 30 days #30 tabs 05/12/23 Hospital Course Operations None Procedures None Summary of Care Provided Minutes Spent on Discharge: 35 Hospital Course: 83 year old male with below past medical history hospitalized for fall, sacral fracture, complicated by rhabdomyolysis, possible cervical spine mets, admitted to TCU with debility, here for rehabilitation, strengthening, prior to discharge home alone. 05/12/2023 Resident had dysuria, Urinalysis positive nitrite, Bactrim DS started, urine culture pending. Discharge to [facility] versus [facility] 05/15/2023, non-skilled, pending appeal. Physical Exam Const alert General Appearance: cooperative HEENT normocephalic Eyes PERRL and EOMs intact bilaterally Neck supple, no JVD and no carotid bruits Resp normal respiratory effort, normal air movement and clear to auscultation bilaterally Cardio regular rate and regular rhythm GI normal to inspection, nondistended, normoactive bowel sounds, non-tender and non-distended Extremity normal capillary refill General Extremity: Negative for edema Skin no rashes or lesions noted General Skin Exam: no breakdown Psych affect normal Appearance: appropriate Medical Records Data Medical Nutrition Assessment Dietitian: Malnutrition Criteria Met Start: 04/29/23 12:53 Freq: Status: Active Protocol: Document 05/06/23 15:12 [facility] (Rec: 05/06/23 15:12 [facility] [id number]) Nutrition Malnutrition Evidence of Malnutrition Exists Yes Malnutrition (moderate): Acute Illness/Injury Evidenced By Weight Loss (Severe),Physical Changes (Moderate) Intake Problem Inadequate Oral Intake Status Inactive Problem Clinical Problem Chronic Disease or Condition Related Malnutrition Etiology related to illness and inadequate energy intake Signs/Symptoms as evidenced by BMI <18, unintended wt loss of 9.6% since last review; appears to have fat/muscle loss throughout body Status Active Problem Recommendation Dietitian Recommendations/Changes Will continue regular diet as ordered Will continue ONS per res request - change ensure clear to magic cup w/ lunch and 8 oz ensure plus high protein ( butter pecan) w/ dinner. Fortified foods as able Weight / BMI Weight Weight: 47.656 kg Body Mass Index (BMI) 15.9 ABG / Lab / Microbiology Data Result Diagrams: 05/09/23 08:04 05/09/23 08:04 Laboratory: Laboratory Results - last 24 hr 05/12/23 01:15: Urine Color Di, Urine Clarity Clear, Urine pH 6.0, Ur Specific [place] 1.020, Urine Protein Negative, Urine Glucose (UA) Normal, Urine Ketones Negative, Urine Occult Blood Negative, Urine Nitrite Positive H, Urine Bilirubin 3 H, Urine Urobilinogen 4 H, Ur Leukocyte Esterase 25 H, Urine RBC 0 SEEN, Urine WBC 0-5 SEEN, Ur Squamous Epith Cells 0 SEEN, Urine Bacteria RARE, Urine Mucus 0 SEEN Microbiology: Microbiology 05/08/23 08:45 Urine, Catheterized Urine Culture - Final Culture exhibits no growth. 04/28/23 06:40 Nasal Secretion SARS-CoV-2 Antigen (Rapid) - Final 04/27/23 06:30 Nasal Secretion SARS-CoV-2 Antigen (Rapid) - Final 04/25/23 06:50 Nasal Secretion SARS-CoV-2 Antigen (Rapid) - Final D/C Instructions Discharge Diet: No restrictions Discharge Activity: Return to Normal Activity, May Shower and Use Walker Weight Bearing Status: Weight bearing as tolerated Call your doctor if you observe: Fever of 101 or Higher, Inability to urinate, Inability to have a bowel movement, Shortness of breath, Dizziness, Fainting spells, Swelling in the ankles, Chest pain and Uncontrolled pain Additional Instructions: Discharge to [facility] versus [facility] 05/15/2023, non-skilled, pending appeal. Meaningful Use Info Meaningful Use Diagnoses (Choose all that apply): None applicable Discharge Plan Admission Admit Date/Time: 04/24/23 14:17 Primary Reason for Your Visit: Debility. Attending Provider: Marcelo Edge Chi Primary Care Provider: Piero Ngo Instructions Additional Instructions / Restrictions: Discharge to [facility] versus [facility] 05/15/2023, non-skilled, pending appeal. Discharge Orders/Prescriptions Prescriptions: New acetaminophen 500 mg Tablet 1,000 mg PO Q8 Qty: 0 0RF baclofen 10 mg Tablet 5 mg PO TID PRN (Reason: Muscle Spasm) 30 Days Qty: 90 0RF gabapentin 300 mg Capsule 300 mg PO TID 30 Days Qty: 90 0RF losartan 100 mg Tablet 100 mg PO DAILY 30 Days Qty: 30 0RF Discontinued lisinopril 10 MG tablet 10 mg PO DAILY Label Comments: TAKE ONE TABLET BY MOUTH DAILY gabapentin 100 mg capsule 200 mg PO DAILY Label Comments: TAKE 2 CAPSULES BY MOUTH DAILY FOR NERVE PAIN oxycodone 10 mg tablet 10 mg PO Q6H PRN (Reason: pain) 5 Days Qty: 20 0RF Referrals / Follow Up: Piero Ngo MD [Primary Care Provider] - Disposition Disposition (needs filled in before D/C Order can be placed): Assisted Living
--- NOTE | 2023-05-12 21:47 | TREXTCAR_ITS ---
Diet Diet Order/Speech Therapy: 04/24/23 14:37 Diet: Regular - General Food consistency:: Regular Liquid Consistency:: Regular/Thin Type of Dietary Supplement:: Is pt able to select menu?: Yes Diet Comments: NO milk to drink; MC w/ L, 8 oz butter pecan EPHP w/ D; fortified foods prn Routine Orders/Code Status Code Status: DNRCC-A (No intubation.) Wound(s) LT UPPER CALF: Wound Type: Abrasion YOCASTA HANDS/ARMS: Wound Type: Abrasion RT POST SHOULDER: Wound Type: Abrasion MID LOWER BACK: Wound Type: Abrasion Therapies Weight Bearing: Weight bearing as tolerated Problem/Diagnosis (1) Debility: Status: Inactive Code(s): R53.81 - Other malaise (2) Frequent falls: Status: Inactive Code(s): R29.6 - Repeated falls (3) Rhabdomyolysis: Status: Resolved Code(s): M62.82 - Rhabdomyolysis (4) Lung nodule seen on imaging study: Status: Inactive Code(s): R91.1 - Solitary pulmonary nodule (5) Sacral fracture, closed: Status: Inactive Code(s): S32.10XA - Unspecified fracture of sacrum, initial encounter for closed fracture (6) Thrombocytopenia: Status: Acute Code(s): D69.6 - Thrombocytopenia, unspecified (7) Hypertension: Status: Chronic Code(s): I10 - Essential (primary) hypertension (8) 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 * Debility - PT/OT. * Cognition - ST. * Pain - Tylenol 1000mg q8, Tramadol 50mg q6h prn pain (1-5), Oxycodone 10mg q4h prn pain (6-10). * Bowel - senna/colace 2 tablets bid, Dulcolax 10mg pr x 1 prn, MOM 30ml po x 1 prn. * Adult immunization - Administer pneumonia vaccine, covid19 vaccine, flu vaccine as appropriate. * DVT prophylaxis - Hold, monitor. * Hypertension - Lisinopril 10mg daily * Neuropathic pain - Gabapentin 200mg daily. * Muscle spasm - Baclofen 5mg tid prn. * Rule out cervical spine metastasis - PSA, CEA pending, order nuclear medicine bone scan. * Thrush - Nystatin swish and swallow x 10 days. Allergies/Procedures Done in Hospital Allergies No Known Allergies Allergy (Verified 04/18/23 12:27) Procedures: None Type of Care/Length of Stay Estimated LOS: Convalescent Care Less Than 30 days Type of Care Needed: Penitentiary/Assisted Living Rehab Potential: Fair Prognosis: Fair Additional Orders/Day of Discharge Day of Discharge: 05/15/23 Dietary and Speech Recommendations Dietitian Recommendations/Changes: Will continue regular diet as ordered Will continue ONS per res request - change ensure clear to magic cup w/ lunch and 8 oz ensure plus high protein (butter pecan) w/ dinner. Fortified foods as able Speech Linguistic Eval Summary: BCAT administered at this date w/ informal cognitive evaluation. Patient oriented to self (name, , age) independently, city/state and situation w/ extended time appreciated. Able to recall personal information re: address, children's names, etc. Orientation grossly WNL at this date, however nursing and family do report disorientation, increased confusion. Difficulty w/ comprehension tasks despite prompting by OIL WINTERIZER including counting backwards from 20-1, [place] backwards. Patient frequently stating that he does not understand the task at hand. Difficulty w/ immediate recall of #'s and 4 words, 0% ability to recall digits or words given <60s delay. Speech intelligibility / verbal expression WNL. Patient presents w/ most notable deficits in orientation, memory, comprehension and executive function. Spoke w/ nursing, Casey who reports patient is receiving several pain medications. Likely pain medication is negatively impacting cognition. Discharge Plan Admission Admit Date/Time: 04/24/23 14:17 Primary Reason for Your Visit: Debility. Attending Provider: Marcelo Edge Chi Primary Care Provider: Piero Ngo Instructions Additional Instructions / Restrictions: Discharge to [facility] versus [facility] 05/15/2023, non- skilled, pending appeal. Discharge Orders/Prescriptions Prescriptions: New acetaminophen 500 mg Tablet 1,000 mg PO Q8 Qty: 0 0RF baclofen 10 mg Tablet 5 mg PO TID PRN (Reason: Muscle Spasm) 30 Days Qty: 90 0RF gabapentin 300 mg Capsule 300 mg PO TID 30 Days Qty: 90 0RF losartan 100 mg Tablet 100 mg PO DAILY 30 Days Qty: 30 0RF Discontinued lisinopril 10 MG tablet 10 mg PO DAILY Label Comments: TAKE ONE TABLET BY MOUTH DAILY gabapentin 100 mg capsule 200 mg PO DAILY Label Comments: TAKE 2 CAPSULES BY MOUTH DAILY FOR NERVE PAIN oxycodone 10 mg tablet 10 mg PO Q6H PRN (Reason: pain) 5 Days Qty: 20 0RF Referrals / Follow Up: Piero Ngo MD [Primary Care Provider] - Disposition Disposition (needs filled in before D/C Order can be placed): Assisted Living
[2023-05-12 22:34] VITALS: O2SAT 95
[2023-05-13] MEDS: Arthritis Pain Compound 60 CLICK TUBE TOPICAL ×2 (06:00→17:04)
[2023-05-13] MEDS: Senna/Docusate Sodium 1 Tablet 2 TABLET PO ×2 (06:00→17:03)
[2023-05-13] MEDS: Losartan Potassium 100 MG Tablet PO (06:00)
[2023-05-13] MEDS: Gabapentin 300 MG Capsule PO ×3 (06:00→20:52)
[2023-05-13] MEDS: Menthol/Lanolin/Calamine/Znox 113 GM Tube 1 APPLIC TOPICAL ×3 (06:00→20:55)
[2023-05-13] MEDS: Acetaminophen 500 MG Tablet 1000 MG PO ×3 (06:00→20:51)
[2023-05-13] MEDS: traMADol 50 MG Tablet PO ×2 (06:19→20:52)
[2023-05-13] MEDS: Smz/Tmp Ds Tablet 0.5 TABLET PO ×2 (07:34→17:04)
[2023-05-13 10:00] VITALS: PULSE 76; O2SAT 96
--- NOTE | 2023-05-13 11:42 | CASEMGMT ---
Addendum entered by Carly Alcocer 05/13/23 16:17: Received call from son Andrez, inquiring about options if pt loses appeal. SW educated to reconsideration or second level appeal process, that takes approximately 14 days for an outcome, and the patient cannot leave the facility and return if pt wins reconsideration. Son expressed paying privately for that 14 day duration if pt loses first appeal. SW updated [facility] and [facility]. PASRR completed. Will continue to follow. Original Note: Social Work Received call from son, Andrez, that the appeal was filed, and family has chosen to DC to [facility]. LISBETH updated [facility] and [facility]. Will continue to follow. BETY Martinez
[2023-05-13 14:17] VITALS: BP 119/59; PULSE 74; RESP 16; TEMP 36.1; O2SAT 98
[2023-05-13] MEDS: Baclofen 10 MG Tablet 5 MG PO (20:52)
[2023-05-13] MEDS: oxyCODONE 5 MG Tablet PO (22:50)
[2023-05-14] MEDS: Losartan Potassium 100 MG Tablet PO (05:44)
[2023-05-14] MEDS: Gabapentin 300 MG Capsule PO ×3 (05:44→21:36)
[2023-05-14] MEDS: Acetaminophen 500 MG Tablet 1000 MG PO ×3 (05:44→21:36)
[2023-05-14] MEDS: Senna/Docusate Sodium 1 Tablet 2 TABLET PO ×2 (05:44→19:03)
[2023-05-14] MEDS: Arthritis Pain Compound 60 CLICK TUBE TOPICAL ×2 (05:46→19:04)
[2023-05-14] MEDS: Menthol/Lanolin/Calamine/Znox 113 GM Tube 1 APPLIC TOPICAL ×3 (05:46→21:36)
[2023-05-14 05:49] VITALS: BP 100/73; PULSE 70
[2023-05-14 13:43] VITALS: BP 104/47; PULSE 58; RESP 16; TEMP 36.4; O2SAT 94
--- NOTE | 2023-05-14 15:49 | CASEMGMT ---
Addendum entered by Carly Alcocer 05/14/23 16:27: Spoke with son and family is choosing to not file reconsideration, and have pt DC to [facility] 05/15. Son to transport at 1000 IDT updated. Original Note: Social Work Pt lost appeal with Matt. SW left voicemail with son, Jose David, to inquire about reconsideration or DC 05/15. Will await return phone call. Carly Alcocer, COST ANALYST STORY WRITER
[2023-05-14 20:38] VITALS: PULSE 74; RESP 16; O2SAT 96
[2023-05-14] MEDS: oxyCODONE 5 MG Tablet PO (22:38)
[2023-05-15] MEDS: Menthol/Lanolin/Calamine/Znox 113 GM Tube 1 APPLIC TOPICAL ×2 (06:18→21:24)
[2023-05-15] MEDS: Arthritis Pain Compound 60 CLICK TUBE TOPICAL (06:19)
[2023-05-15] MEDS: Senna/Docusate Sodium 1 Tablet 2 TABLET PO ×2 (06:20→17:16)
[2023-05-15] MEDS: Losartan Potassium 100 MG Tablet PO (06:20)
[2023-05-15] MEDS: Acetaminophen 500 MG Tablet 1000 MG PO ×2 (06:20→21:25)
[2023-05-15] MEDS: Gabapentin 300 MG Capsule PO ×2 (06:30→21:24)
[2023-05-15 06:36] VITALS: BP 157/87; PULSE 86; RESP 16
[2023-05-15 08:02] VITALS: BP 131/86; PULSE 87; RESP 16; TEMP 36.9; O2SAT 97
--- NOTE | 2023-05-15 09:40 | NURSING ---
Report called to [facility] and given to nurseJudith.
--- NOTE | 2023-05-15 11:12 | CASEMGMT ---
Social Work BIMS (09/30) and PHQ-9 (01/12) completed for MDS assessment. Carly Alcocer MSW DIRECTOR OF QUANTITATIVE RESEARCH
[2023-05-16] MEDS: oxyCODONE 5 MG Tablet PO (02:50)
[2023-05-16 05:00] VITALS: BP 141/68; PULSE 72
[2023-05-16] MEDS: Menthol/Lanolin/Calamine/Znox 113 GM Tube 1 APPLIC TOPICAL ×3 (05:05→20:51)
[2023-05-16] MEDS: Losartan Potassium 100 MG Tablet PO (05:05)
[2023-05-16] MEDS: Senna/Docusate Sodium 1 Tablet 2 TABLET PO ×2 (05:05→17:33)
[2023-05-16] MEDS: Acetaminophen 500 MG Tablet 1000 MG PO ×3 (05:05→20:48)
[2023-05-16] MEDS: Arthritis Pain Compound 60 CLICK TUBE TOPICAL ×2 (05:05→17:33)
[2023-05-16] MEDS: Gabapentin 300 MG Capsule PO ×3 (05:05→20:56)
[2023-05-16 06:57] LABS: Absolute Lymphocyte Count 1.97 X10^3/uL (0.83-4.51); Absolute Neutrophil Count 5.8 X10^3/uL (2.0-7.7); Basophil# 0.05 X10^3/uL; Basophil% 0.5 % (0-1); Eosinophils% 4.3 % (0-5); Hematocrit 30.4 % (40-54); Hemoglobin 9.9 g/dL (13.0-16.5); Lymphocyte # 1.97 X10^3/ul (0.83-4.51); Lymphocyte % 21.1 % (19-41); Mean Corp Hgb Conc 32.6 g/dL (32-36); Mean Corpuscular Hgb 34.3 pg (27.0-32.0); Mean Corpuscular Volume 105.2 fL (80-94); Mean Platelet Vol. 10.8 fl (6.2-12.0); Monocyte# 1.09 X10^3/uL; Monocyte% 11.7 % (0-10); NRBC Flagged by Analyzer 0 % (0-5); Neutrophil # 5.78 X10^3/uL (2.7-7.7); Neutrophil % 61.8 % (47-70); Platelet Count 223 K/mm3 (150-450); RBC Distribution Width CV 16.2 % (11.6-14.6); RBC Distribution Width SD 62.9 fl (35.1-43.9); Red Blood Count 2.89 M/mm3 (4.6-6.2); White Blood Count 9.4 K/mm3 (4.4-11.0)
[2023-05-16 07:17] LABS: Anion Gap 3 (5-15); BUN 40 mg/dL (7-18); BUN/Creat Ratio 37.7 RATIO (10-20); Chloride 111 mmol/L (98-107); Creatinine, Serum 1.06 mg/dL (0.70-1.30); EST Glomerular Filtration Rate 71 mL/min (>60); Est Glom Filt Rate - Afr Amer 86 mL/min (>60); Estimated Creatinine Clearance 34.97 ml/min; Glucose 79 mg/dL (74-106); Potassium 4.8 mmol/L (3.5-5.1); Sodium Level 141 mmol/L (136-145)
[2023-05-16 13:53] VITALS: BP 107/66; PULSE 99; RESP 16; TEMP 36.7; O2SAT 99
[2023-05-16] MEDS: traMADol 50 MG Tablet PO (20:49)
[2023-05-16] MEDS: Baclofen 10 MG Tablet 5 MG PO (20:49)
[2023-05-16 21:59] VITALS: O2SAT 95
[2023-05-17] MEDS: Arthritis Pain Compound 60 CLICK TUBE TOPICAL ×2 (04:54→17:35)
[2023-05-17] MEDS: traMADol 50 MG Tablet PO ×2 (04:54→20:13)
[2023-05-17] MEDS: Acetaminophen 500 MG Tablet 1000 MG PO ×3 (04:54→20:12)
[2023-05-17] MEDS: Losartan Potassium 100 MG Tablet PO (04:55)
[2023-05-17] MEDS: Senna/Docusate Sodium 1 Tablet 2 TABLET PO ×2 (04:55→17:33)
[2023-05-17] MEDS: Menthol/Lanolin/Calamine/Znox 113 GM Tube 1 APPLIC TOPICAL ×3 (04:56→20:14)
[2023-05-17] MEDS: Gabapentin 300 MG Capsule PO ×3 (04:59→20:14)
[2023-05-17 05:00] VITALS: BP 140/75; PULSE 70
[2023-05-17 14:32] VITALS: BP 96/57; PULSE 76; RESP 16; TEMP 36.4; O2SAT 95
[2023-05-17] MEDS: Baclofen 10 MG Tablet 5 MG PO (20:13)
[2023-05-18] MEDS: Senna/Docusate Sodium 1 Tablet 2 TABLET PO ×2 (05:54→18:05)
[2023-05-18] MEDS: Gabapentin 300 MG Capsule PO ×3 (05:54→21:27)
[2023-05-18] MEDS: Arthritis Pain Compound 60 CLICK TUBE TOPICAL ×2 (05:54→18:05)
[2023-05-18] MEDS: Acetaminophen 500 MG Tablet 1000 MG PO ×3 (05:55→21:26)
[2023-05-18] MEDS: traMADol 50 MG Tablet PO ×2 (05:55→21:27)
[2023-05-18] MEDS: Losartan Potassium 100 MG Tablet PO (05:58)
[2023-05-18] MEDS: Menthol/Lanolin/Calamine/Znox 113 GM Tube 1 APPLIC TOPICAL ×3 (06:02→21:27)
[2023-05-18 14:30] VITALS: BP 106/60; PULSE 80; RESP 14; TEMP 37.1; O2SAT 95
[2023-05-18 21:00] VITALS: PULSE 78; RESP 16; O2SAT 98
[2023-05-19] MEDS: oxyCODONE 5 MG Tablet PO (04:45)
[2023-05-19] MEDS: Senna/Docusate Sodium 1 Tablet 2 TABLET PO ×2 (06:14→16:54)
[2023-05-19] MEDS: Losartan Potassium 100 MG Tablet PO (06:14)
[2023-05-19] MEDS: Arthritis Pain Compound 60 CLICK TUBE TOPICAL ×2 (06:15→16:54)
[2023-05-19] MEDS: Menthol/Lanolin/Calamine/Znox 113 GM Tube 1 APPLIC TOPICAL ×3 (06:15→21:13)
[2023-05-19] MEDS: Gabapentin 300 MG Capsule PO ×3 (06:15→21:10)
[2023-05-19] MEDS: Acetaminophen 500 MG Tablet 1000 MG PO ×3 (06:23→21:09)
[2023-05-19] MEDS: traMADol 50 MG Tablet PO (10:33)
[2023-05-19 13:28] VITALS: BMI 16.6
[2023-05-19 14:11] VITALS: BP 111/55; PULSE 82; RESP 15; TEMP 36.6; O2SAT 96
[2023-05-20] MEDS: oxyCODONE 5 MG Tablet PO (00:20)
[2023-05-20] MEDS: Baclofen 10 MG Tablet 5 MG PO ×2 (01:38→20:58)
[2023-05-20] MEDS: traMADol 50 MG Tablet PO ×2 (01:38→20:57)
[2023-05-20] MEDS: Gabapentin 300 MG Capsule PO ×3 (05:50→20:59)
[2023-05-20] MEDS: Senna/Docusate Sodium 1 Tablet 2 TABLET PO ×2 (05:51→18:07)
[2023-05-20] MEDS: Losartan Potassium 100 MG Tablet PO (05:52)
[2023-05-20] MEDS: Arthritis Pain Compound 60 CLICK TUBE TOPICAL ×2 (05:52→18:06)
[2023-05-20] MEDS: Acetaminophen 500 MG Tablet 1000 MG PO ×3 (05:52→20:58)
[2023-05-20] MEDS: Menthol/Lanolin/Calamine/Znox 113 GM Tube 1 APPLIC TOPICAL ×3 (05:58→21:01)
[2023-05-20 14:51] VITALS: BP 93/43; PULSE 84; RESP 16; TEMP 36.9; O2SAT 96
[2023-05-20 19:30] VITALS: O2SAT 96
--- NOTE | 2023-05-20 19:35 | PN.TCU_ITS ---
Subjective Subjective Resident seen, examined for regulatory visit. He is progressing in therapy. His low back pain is better controlled. He has no new problems, concerns, issues, complaints. Objective Data Objective Data Vital Signs: Vital Signs Temp Pulse Resp BP Pulse Ox O2 Del Method 98.5 F 84 16 93/43 L 96 Room Air 05/20/23 14:51 05/20/23 14:51 05/20/23 14:51 05/20/23 14:51 05/20/23 14:51 05/20/23 14:51 Oxygen Delivery Method Room Air Weight: 49.697 kg Body Mass Index (BMI) 16.6 Intake & Output: Intake and Output for Last 24 Hours 05/18/23 05/19/23 05/20/23 23:59 23:59 23:59 Intake Total 600 / 600 520 / 520 480 / 480 Balance 600 / 600 520 / 520 480 / 480 Medical Nutrition Assessment Dietitian: Malnutrition Criteria Met Start: 04/29/23 12:53 Freq: Status: Active Protocol: Document 05/06/23 15:12 [facility] (Rec: 05/06/23 15:12 [facility] [id number]) Nutrition Malnutrition Evidence of Malnutrition Exists Yes Malnutrition (moderate): Acute Illness/Injury Evidenced By Weight Loss (Severe),Physical Changes (Moderate) Intake Problem Inadequate Oral Intake Status Inactive Problem Clinical Problem Chronic Disease or Condition Related Malnutrition Etiology related to illness and inadequate energy intake Signs/Symptoms as evidenced by BMI <18, unintended wt loss of 9.6% since last review; appears to have fat/muscle loss throughout body Status Active Problem Recommendation Dietitian Recommendations/Changes Will continue regular diet as ordered Will continue ONS per res request - change ensure clear to magic cup w/ lunch and 8 oz ensure plus high protein ( butter pecan) w/ dinner. Fortified foods as able Lab / Micro Data 05/16/23 06:42 05/16/23 06:42 Micro: Microbiology 05/12/23 01:15 Urine, Clean Catch Urine Culture - Final Coag Negative Staph 05/08/23 08:45 Urine, Catheterized Urine Culture - Final Culture exhibits no growth. 04/28/23 06:40 Nasal Secretion SARS-CoV-2 Antigen (Rapid) - Final 04/27/23 06:30 Nasal Secretion SARS-CoV-2 Antigen (Rapid) - Final 04/25/23 06:50 Nasal Secretion SARS-CoV-2 Antigen (Rapid) - Final Physical Exam Const alert General Appearance: cooperative HEENT normocephalic Eyes PERRL and EOMs intact bilaterally Neck supple, no JVD and no carotid bruits Resp normal respiratory effort, normal air movement and clear to auscultation bilaterally Cardio regular rate and regular rhythm GI normal to inspection, nondistended, normoactive bowel sounds, non-tender and non-distended Extremity normal capillary refill General Extremity: Negative for edema Skin no rashes or lesions noted General Skin Exam: no breakdown Psych affect normal Appearance: appropriate Assessment & Plan Assessment/Plan (1) Debility: (2) Frequent falls: (3) Rhabdomyolysis: (4) Lung nodule seen on imaging study: (5) Sacral fracture, closed: (6) Thrombocytopenia: (7) Hypertension: (8) 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 * Debility - PT/OT. * Cognition - ST. * Pain - Tylenol 1000mg q8, Tramadol 50mg q6h prn pain (1-5), Oxycodone 10mg q4h prn pain (6-10), Arthritis Compound topical bid. * Bowel - senna/colace 2 tablets bid, Dulcolax 10mg pr x 1 prn, MOM 30ml po x 1 prn. * Adult immunization - Administer pneumonia vaccine, covid19 vaccine, flu vaccine as appropriate. * DVT prophylaxis - Hold, monitor. * Hypertension - Losartan 100mg daily. * Neuropathic pain - Gabapentin 300mg tid. * Muscle spasm - Baclofen 5mg tid prn. * Rule out cervical spine metastasis - nuclear bone scan negative. * Skin - HC topical bid prn, Calmoseptine topical tid. Capacity Capacity Assessment Tool Can the patient make a choice & communicate that choice?: Yes Can the patient understand benefits, risks and alternatives?: Yes Can the patient make a logical, rational choice?: Yes Is the choice the patient makes consistent w/ their values?: Yes Is there an impending, emergent risk to the patient?: No Does the patient have an Advance Directive?: Yes i.e. HCPOA: Yes i.e. close relative (spouse, child, parent, sibling)?: Yes
[2023-05-21] MEDS: traMADol 50 MG Tablet PO (03:31)
[2023-05-21] MEDS: Gabapentin 300 MG Capsule PO ×3 (05:11→22:29)
[2023-05-21] MEDS: Losartan Potassium 100 MG Tablet PO (05:12)
[2023-05-21] MEDS: Acetaminophen 500 MG Tablet 1000 MG PO ×3 (05:12→22:30)
[2023-05-21] MEDS: Senna/Docusate Sodium 1 Tablet 2 TABLET PO ×2 (05:12→16:56)
[2023-05-21] MEDS: Arthritis Pain Compound 60 CLICK TUBE TOPICAL ×2 (05:13→16:57)
[2023-05-21] MEDS: Menthol/Lanolin/Calamine/Znox 113 GM Tube 1 APPLIC TOPICAL ×3 (05:17→22:29)
[2023-05-21 09:32] VITALS: PULSE 80; RESP 16; O2SAT 96
[2023-05-21 15:52] VITALS: BP 126/52; PULSE 67; RESP 16; TEMP 36.3; O2SAT 97
[2023-05-22] MEDS: oxyCODONE 5 MG Tablet PO (00:27)
[2023-05-22] MEDS: Baclofen 10 MG Tablet 5 MG PO ×2 (01:44→20:08)
[2023-05-22 05:05] VITALS: BP 129/100; PULSE 66
[2023-05-22] MEDS: Acetaminophen 500 MG Tablet 1000 MG PO ×3 (05:07→21:03)
[2023-05-22] MEDS: Menthol/Lanolin/Calamine/Znox 113 GM Tube 1 APPLIC TOPICAL ×3 (05:07→21:02)
[2023-05-22] MEDS: Arthritis Pain Compound 60 CLICK TUBE TOPICAL ×2 (05:07→17:56)
[2023-05-22] MEDS: Senna/Docusate Sodium 1 Tablet 2 TABLET PO ×2 (05:07→17:56)
[2023-05-22] MEDS: Gabapentin 300 MG Capsule PO ×3 (05:09→21:03)
[2023-05-22] MEDS: Losartan Potassium 100 MG Tablet PO (05:09)
[2023-05-22 10:00] VITALS: PULSE 85; RESP 14; O2SAT 98
[2023-05-22 10:45] VITALS: BP 80/33; PULSE 90; RESP 16; TEMP 36.7; O2SAT 96
[2023-05-22 11:31] LABS: Absolute Lymphocyte Count 1.08 X10^3/uL (0.83-4.51); Absolute Neutrophil Count 6.6 X10^3/uL (2.0-7.7); Basophil# 0.02 X10^3/uL; Basophil% 0.2 % (0-1); Eosinophil# 0.23 X10^3/uL; Eosinophils% 2.6 % (0-5); Hemoglobin 9.9 g/dL (13.0-16.5); Lymphocyte # 1.08 X10^3/ul (0.83-4.51); Lymphocyte % 12.1 % (19-41); Mean Corp Hgb Conc 31.9 g/dL (32-36); Mean Corpuscular Hgb 33.6 pg (27.0-32.0); Mean Corpuscular Volume 105.1 fL (80-94); Mean Platelet Vol. 10.8 fl (6.2-12.0); Monocyte# 0.91 X10^3/uL; Monocyte% 10.2 % (0-10); NRBC Flagged by Analyzer 0 % (0-5); Neutrophil # 6.58 X10^3/uL (2.7-7.7); Platelet Count 263 K/mm3 (150-450); RBC Distribution Width SD 61.9 fl (35.1-43.9); Red Blood Count 2.95 M/mm3 (4.6-6.2); White Blood Count 8.9 K/mm3 (4.4-11.0)
[2023-05-22 11:42] LABS: BNP,B-Type NATRIURETIC PEPTIDE 83.8 pg/mL (0-100)
[2023-05-22 11:43] LABS: Anion Gap 5 (5-15); BUN 27 mg/dL (7-18); BUN/Creat Ratio 19.7 RATIO (10-20); Calcium,Total 8.8 mg/dL (8.5-10.1); Chloride 112 mmol/L (98-107); Creatinine, Serum 1.37 mg/dL (0.70-1.30); EST Glomerular Filtration Rate 53 mL/min (>60); Est Glom Filt Rate - Afr Amer 64 mL/min (>60); Estimated Creatinine Clearance 28.21 ml/min; Glucose 143 mg/dL (74-106); Potassium 4.1 mmol/L (3.5-5.1); Sodium Level 142 mmol/L (136-145)
[2023-05-22] MEDS: 0.9% Normal Saline 1,000 ML 999 ML IV (11:43)
--- NOTE | 2023-05-22 11:57 | NURSING ---
Addendum entered by Savanah Almanzar 05/22/23 16:59: Alcon and in room later and orders reviewed with them. They requested a family meeting to review patient's progress and plan going forward. Notified Carly BOB. She said she would add them to the list for a family meeting Thursday. Original Note: Notified by therapy that patient was very weak during therapy, couldn't walk as far as yesterday. In to assess patient, he says he just doesn't feel like himself but has no other specific complaints. He denies any pain, does say his ankle hurt overnight. Low BP of 80/33, otherwise vitals unremarkable. Updated Dr. Edge, orders for 1L bolus NS, CBC, CMP, BNP, UA w/ culture, Cxray. Updated Family member Heather of new orders.
[2023-05-22 13:14] VITALS: BP 124/63; PULSE 83
--- NOTE | 2023-05-22 13:30 | RAD_ITS ---
STUDY: X-RAY CHEST REASON FOR EXAM: Male, 83 years old. Weakness, low BP TECHNIQUE: PA and lateral views of the chest. COMPARISON: Comparison is made with prior study dated April 18, 2023. FINDINGS: Hyperinflation. Stable 1.1 cm nodule in the peripheral aspect of the left upper lobe. Stable increased linear markings in the right perihilar region as well as in the right upper lobe suggestive of scarring. Blunting of both costophrenic angles. Normal size heart. Normal mediastinum and yashira. Normal visualized pulmonary arteries. There is atherosclerotic calcification of the aortic arch with tortuosity. There is demineralization of the osseous structures. Normal visualized ribs, clavicles, and shoulders. There is no demonstrated abnormality of the visualized soft tissue structures of the upper abdomen. RAD/Chest PA and Lateral IMPRESSION: 1 cm nodule in the lateral aspect of the left upper lobe. Stable scarring in the right upper lobe and right perihilar region. Electronically Signed: Seamus Ngo MD at 15:25 EDT ,
[2023-05-22 14:32] LABS: Bacteria 0 SEEN /hpf (None Seen); Mucous, Urine 0 SEEN /hpf (<or=2+); Red Blood Cells-Urine 0 SEEN /hpf (0-5); Squamous Epithelial Cells - UA 0 SEEN /hpf (0-5); White Blood Cells 0 SEEN /hpf (0-5)
[2023-05-22 14:44] LABS: Color, Urine Yellow (Yellow); Glucose, Dipstick Normal (Normal); Ketone-Dipstick Negative (Negative); Leukocyte Esterase-Dipstick Negative /ul (Negative); Nitrite-Dipstick Negative (Negative); Occult Blood-Urine Negative /ul (Negative); Protein-Dipstick Negative (Negative); Specific Gravity, Urine 1.015 (1.002-1.030); Urine Bilirubin Dipstick Negative (Negative); Urine Clarity Clear (Clear); Urine Urobilinogen Normal (Normal)
[2023-05-22 15:56] VITALS: BP 86/51; PULSE 90; RESP 16; TEMP 36.4; O2SAT 99
[2023-05-22 16:10] VITALS: BP 104/60
[2023-05-23] MEDS: oxyCODONE 5 MG Tablet PO ×2 (00:08→07:40)
[2023-05-23] MEDS: Gabapentin 300 MG Capsule PO ×3 (05:44→21:58)
[2023-05-23] MEDS: Arthritis Pain Compound 60 CLICK TUBE TOPICAL ×2 (05:45→17:09)
[2023-05-23] MEDS: Senna/Docusate Sodium 1 Tablet 2 TABLET PO ×2 (05:45→17:09)
[2023-05-23] MEDS: Menthol/Lanolin/Calamine/Znox 113 GM Tube 1 APPLIC TOPICAL ×3 (05:45→21:59)
[2023-05-23] MEDS: Acetaminophen 500 MG Tablet 1000 MG PO ×3 (05:45→21:58)
[2023-05-23] MEDS: Losartan Potassium 100 MG Tablet PO (05:46)
[2023-05-23 06:00] VITALS: BP 153/73; PULSE 77; RESP 16
[2023-05-23 08:13] LABS: Absolute Neutrophil Count 7.1 X10^3/uL (2.0-7.7); Basophil# 0.04 X10^3/uL; Basophil% 0.4 % (0-1); Eosinophil# 0.26 X10^3/uL; Eosinophils% 2.5 % (0-5); Hematocrit 28.4 % (40-54); Lymphocyte % 15.5 % (19-41); Mean Corp Hgb Conc 31.7 g/dL (32-36); Mean Corpuscular Hgb 33.1 pg (27.0-32.0); Mean Corpuscular Volume 104.4 fL (80-94); Monocyte# 1.25 X10^3/uL; Monocyte% 12.1 % (0-10); NRBC Flagged by Analyzer 0 % (0-5); Neutrophil # 7.08 X10^3/uL (2.7-7.7); Neutrophil % 68.5 % (47-70); Platelet Count 266 K/mm3 (150-450); RBC Distribution Width CV 16.1 % (11.6-14.6); RBC Distribution Width SD 60.9 fl (35.1-43.9); Red Blood Count 2.72 M/mm3 (4.6-6.2); White Blood Count 10.3 K/mm3 (4.4-11.0)
[2023-05-23 08:37] LABS: Anion Gap 3 (5-15); BUN 24 mg/dL (7-18); BUN/Creat Ratio 27.6 RATIO (10-20); Calcium,Total 8.6 mg/dL (8.5-10.1); Chloride 112 mmol/L (98-107); Creatinine, Serum 0.87 mg/dL (0.70-1.30); EST Glomerular Filtration Rate 89 mL/min (>60); Est Glom Filt Rate - Afr Amer 107 mL/min (>60); Estimated Creatinine Clearance 44.43 ml/min; Glucose 85 mg/dL (74-106); Potassium 4.3 mmol/L (3.5-5.1); Sodium Level 143 mmol/L (136-145)
[2023-05-23 08:46] VITALS: BP 120/70; PULSE 82; RESP 16; TEMP 36.8; O2SAT 97
--- NOTE | 2023-05-23 11:25 | NURSING ---
Per sonAlcon, nursing staff can give updates to siblings Andrez and Heather.
[2023-05-24] MEDS: traMADol 50 MG Tablet PO (00:07)
[2023-05-24] MEDS: Baclofen 10 MG Tablet 5 MG PO (03:51)
--- NOTE | 2023-05-24 03:57 | NURSING ---
Pt very anxious and did not sleep throughout shift. Staff in with pt multiple times per hour. Redirection and reassurance provided with effective result for short periods of time only. PRNs given for c/o pain.
[2023-05-24] MEDS: Senna/Docusate Sodium 1 Tablet 2 TABLET PO ×2 (05:04→17:55)
[2023-05-24] MEDS: Acetaminophen 500 MG Tablet 1000 MG PO ×3 (05:04→22:03)
[2023-05-24] MEDS: Gabapentin 300 MG Capsule PO ×3 (05:04→22:03)
[2023-05-24] MEDS: Losartan Potassium 100 MG Tablet PO (05:04)
[2023-05-24] MEDS: Menthol/Lanolin/Calamine/Znox 113 GM Tube 1 APPLIC TOPICAL ×3 (05:04→21:58)
[2023-05-24] MEDS: Arthritis Pain Compound 60 CLICK TUBE TOPICAL ×2 (05:05→17:54)
[2023-05-24 06:28] VITALS: BP 163/74; PULSE 72
[2023-05-24 07:37] VITALS: BP 163/86; PULSE 63; RESP 17; TEMP 36.7; O2SAT 96
--- NOTE | 2023-05-24 10:30 | NURSING ---
Call from Heather parker. Update given.
[2023-05-24 18:00] VITALS: BP 153/87; PULSE 71
[2023-05-25] MEDS: traMADol 50 MG Tablet PO (02:44)
[2023-05-25] MEDS: Gabapentin 300 MG Capsule PO (05:16)
[2023-05-25] MEDS: Menthol/Lanolin/Calamine/Znox 113 GM Tube 1 APPLIC TOPICAL ×3 (05:17→21:04)
[2023-05-25] MEDS: Acetaminophen 500 MG Tablet 1000 MG PO (05:18)
[2023-05-25] MEDS: Losartan Potassium 100 MG Tablet PO (05:19)
[2023-05-25] MEDS: Senna/Docusate Sodium 1 Tablet 2 TABLET PO (05:19)
[2023-05-25] MEDS: Arthritis Pain Compound 60 CLICK TUBE TOPICAL ×2 (05:19→17:27)
[2023-05-25] MEDS: Gabapentin 100 MG Capsule 200 MG PO ×2 (13:54→21:03)
[2023-05-25 14:50] VITALS: BP 92/51; PULSE 69; RESP 16; TEMP 36.4; O2SAT 96
[2023-05-25] MEDS: Senna/Docusate Sodium 1 Tablet PO (17:26)
[2023-05-25] MEDS: MELATONIN 3 MG TABLET PO (21:03)
[2023-05-26] MEDS: Acetaminophen 500 MG Tablet 1000 MG PO ×2 (02:11→21:34)
[2023-05-26] MEDS: Gabapentin 100 MG Capsule 200 MG PO ×3 (05:31→21:35)
[2023-05-26] MEDS: Senna/Docusate Sodium 1 Tablet PO ×2 (05:31→17:46)
[2023-05-26] MEDS: Menthol/Lanolin/Calamine/Znox 113 GM Tube 1 APPLIC TOPICAL ×3 (05:31→21:41)
[2023-05-26] MEDS: Losartan Potassium 100 MG Tablet PO (05:32)
[2023-05-26 05:35] VITALS: BP 176/85; PULSE 64
--- NOTE | 2023-05-26 05:56 | NURSING ---
Arthritis compound cream to be applied after bathing. Will report to oncoming nurse.
--- NOTE | 2023-05-26 08:07 | NURSING ---
Pt repeatedly questions this nurse why he is on TCU, if he will get well, and if his pain will be cured. This nurse explained multiple times that he is currently on TCU as he is not safe to be home alone and his family is in the process of working toward dc planning with social work. Also informed pt he is not at his prior level of functioning and may not reach that level of functioning even with continued therapy sessions. Pt unsure if therapy is beneficial. Explained to pt therapy is likely attempting to maintain his current function working toward preventing further decline. This nurse is unable to predict the status of his overall health after he is dc'ed from TCU. Pt was also informed that his pain likely will not be cured but can be managed w/ his current medication regimen, position changes, and additional nonpharmacologic treatment modalities. Emotional support and reassurance provided during each encounter. Pt becomes increasingly anxious during conversation due to lack of concrete answers leading to repetitive nature of the above npted questions asked. Will continue to monitor.
[2023-05-26] MEDS: Arthritis Pain Compound 60 CLICK TUBE TOPICAL ×2 (08:22→17:46)
[2023-05-26 09:09] VITALS: BP 103/55; PULSE 100; RESP 16; TEMP 37.2; O2SAT 97
[2023-05-26 15:00] VITALS: BMI 17.1
[2023-05-26 21:15] VITALS: O2SAT 94
[2023-05-26] MEDS: MELATONIN 3 MG TABLET PO (21:35)
[2023-05-27] MEDS: Arthritis Pain Compound 60 CLICK TUBE TOPICAL ×2 (05:13→17:40)
[2023-05-27] MEDS: Senna/Docusate Sodium 1 Tablet PO ×2 (05:14→17:40)
[2023-05-27] MEDS: Acetaminophen 500 MG Tablet 1000 MG PO (05:14)
[2023-05-27] MEDS: Gabapentin 100 MG Capsule 200 MG PO ×3 (05:14→21:16)
[2023-05-27] MEDS: Losartan Potassium 100 MG Tablet PO (05:14)
[2023-05-27] MEDS: Menthol/Lanolin/Calamine/Znox 113 GM Tube 1 APPLIC TOPICAL ×3 (05:23→21:16)
[2023-05-27 05:25] VITALS: BP 123/61; PULSE 65
--- NOTE | 2023-05-27 09:56 | CASEMGMT ---
Social Work IDT met with son then son and dtr via conference call for care plan meeting. Discussed PT/OT/ST/SN. Pt is paying privately through 06/04. Family expressed concern with lack of ongoing progress as noted still needing 24/7 hands on care for physical and cognitive impairments. Family unsure the future plans and any further improvements. SW validated concerns and provided supportive listening. Offered education that pt have been successful at home prior d/t routine and normalcy and covering up cognitive impairments, and with the multiple changes in environment and changes in medical condition, allowing deficits to surface. Explained pt may be at his new normal and to plan for the future with these impairments. IDT recommending 24/7 hands on care and family or a professional manage medications and finances, and not recommending returning to driving at this time. Family expressed understanding and are wanting to pursue [facility]. SW offered to place referral to ensure they can provide pt's LOC. SW to coordinate any DME needs, such a hospital bed, and skilled HHC. Family expressed appreciation for assistance. SW made referral to [facility] via [facility] and secure email. -- Received voicemail from son requesting referral to [facility]. Referral placed via [facility]. Plan: DC 06/05 to [facility] with [facility] PT/OT/ST Carly Alcocer, BETY ASIF
[2023-05-27 10:00] VITALS: PULSE 71; RESP 16; O2SAT 94
[2023-05-27 14:20] VITALS: BP 120/65; PULSE 98; RESP 16; TEMP 36.4; O2SAT 100
[2023-05-27] MEDS: MELATONIN 3 MG TABLET PO (21:17)
[2023-05-28] MEDS: Acetaminophen 500 MG Tablet 1000 MG PO ×2 (03:08→20:57)
[2023-05-28] MEDS: Gabapentin 100 MG Capsule 200 MG PO ×3 (05:09→21:01)
[2023-05-28] MEDS: Losartan Potassium 100 MG Tablet PO (05:10)
[2023-05-28] MEDS: Menthol/Lanolin/Calamine/Znox 113 GM Tube 1 APPLIC TOPICAL ×3 (05:10→20:56)
[2023-05-28] MEDS: Arthritis Pain Compound 60 CLICK TUBE TOPICAL ×2 (05:10→17:20)
[2023-05-28] MEDS: Senna/Docusate Sodium 1 Tablet PO ×2 (05:10→17:19)
[2023-05-28 05:15] VITALS: BP 163/66; PULSE 61; RESP 16
[2023-05-28 16:00] VITALS: BP 106/54; PULSE 70; RESP 16; TEMP 36.7; O2SAT 96
[2023-05-28] MEDS: MELATONIN 3 MG TABLET PO (21:01)
[2023-05-28 21:04] VITALS: PULSE 64; RESP 16; O2SAT 98
[2023-05-29] MEDS: Acetaminophen 500 MG Tablet 1000 MG PO (03:32)
[2023-05-29] MEDS: Menthol/Lanolin/Calamine/Znox 113 GM Tube 1 APPLIC TOPICAL ×3 (05:47→20:43)
[2023-05-29] MEDS: Gabapentin 100 MG Capsule 200 MG PO ×2 (05:47→13:16)
[2023-05-29] MEDS: Arthritis Pain Compound 60 CLICK TUBE TOPICAL ×2 (05:48→18:15)
[2023-05-29] MEDS: Senna/Docusate Sodium 1 Tablet PO ×2 (05:50→18:15)
[2023-05-29] MEDS: Losartan Potassium 100 MG Tablet PO ×2 (05:50→20:43)
[2023-05-29 05:55] VITALS: BP 175/76; PULSE 76; RESP 16
[2023-05-29 08:44] VITALS: PULSE 53; RESP 16; O2SAT 95
--- NOTE | 2023-05-29 09:34 | NURSING ---
Addendum entered by Savanah Almanzar 06/01/23 15:59: Spoke with Dr. Terrazas's office staff. They requested order be faxed to them then they would return call to schedule appt. Per them, they couldn't get him in until September. Order faxed, await return call. [facility] updated that appt wouldn't be until September. Addendum entered by Savanah Almanzar 05/29/23 09:45: Office closed today, updated [facility] by phone that staff would call Thursday. Original Note: Call from [facility] requesting neurology to see patient. Dr. Edge on unit and notified of request. He placed order to have neuro appt set up. Updated [facility] that this RN would call Dr. Terrazas's office and notify him if appt can be set up.
--- NOTE | 2023-05-29 10:00 | CASEMGMT ---
Addendum entered by Carly Alcocer 05/29/23 14:12: Son requesting a w/c as well. SW updated order to [facility] for w/c. Son agreeable to pay OOP for hospital bed and FWW. Original Note: Social Work Received email from son stating family is happy with [facility] and confirmed pt will DC there. Son requesting FWW, hospital bed and lift chair. SW educated to insurance coverage for FWW but not for hospital bed and lift chair. However, script will be written for both for family to pay OOP. SW to coordinate [facility], per son's request as well. Son to transport. SW phoned referral to [facility] PT/OT/ST. Referral made to [facility] for FWW and hospital bed. Lift chair script left in pt's room. Plan: DC 06/05, [facility], [facility] PT/OT/ST, FWW, hospital bed, lift chair Carly Alcocer, INSTRUCTIONAL DESIGN TECHNOLOGIST PLASTIC BOAT BUFFER
[2023-05-29 14:11] VITALS: BP 118/56; PULSE 66; RESP 18; TEMP 36.7; O2SAT 97
[2023-05-29 20:41] VITALS: BP 134/72; PULSE 71; RESP 18; TEMP 37; O2SAT 96
[2023-05-29] MEDS: Gabapentin 100 MG Capsule PO (20:43)
[2023-05-29] MEDS: MELATONIN 3 MG TABLET PO (20:43)
[2023-05-29] MEDS: MENTHOL 226.8 GM JAR 1 APPLIC TOPICAL (20:44)
[2023-05-30] MEDS: Acetaminophen 500 MG Tablet 1000 MG PO ×2 (02:02→08:02)
[2023-05-30] MEDS: MENTHOL 226.8 GM JAR 1 APPLIC TOPICAL (03:42)
[2023-05-30] MEDS: Arthritis Pain Compound 60 CLICK TUBE TOPICAL ×2 (04:46→18:21)
[2023-05-30] MEDS: Senna/Docusate Sodium 1 Tablet PO ×2 (04:47→18:21)
[2023-05-30 07:11] LABS: Absolute Lymphocyte Count 1.81 X10^3/uL (0.83-4.51); Absolute Neutrophil Count 5.4 X10^3/uL (2.0-7.7); Basophil# 0.04 X10^3/uL; Basophil% 0.5 % (0-1); Eosinophil# 0.17 X10^3/uL; Eosinophils% 1.9 % (0-5); Hematocrit 31.1 % (40-54); Hemoglobin 9.4 g/dL (13.0-16.5); Lymphocyte # 1.81 X10^3/ul (0.83-4.51); Lymphocyte % 20.5 % (19-41); Mean Corp Hgb Conc 30.2 g/dL (32-36); Mean Corpuscular Hgb 34.2 pg (27.0-32.0); Mean Corpuscular Volume 113.1 fL (80-94); Mean Platelet Vol. 11.4 fl (6.2-12.0); Monocyte# 1.35 X10^3/uL; Monocyte% 15.3 % (0-10); NRBC Flagged by Analyzer 0 % (0-5); POSITIVE MORPHOLOGY YES; Platelet Count 301 K/mm3 (150-450); RBC Distribution Width CV 16.4 % (11.6-14.6); Red Blood Count 2.75 M/mm3 (4.6-6.2); White Blood Count 8.8 K/mm3 (4.4-11.0)
[2023-05-30 07:30] LABS: Differential Indicated SCAN CRITERIA MET
[2023-05-30 07:50] LABS: Anion Gap 5 (5-15); BUN 18 mg/dL (7-18); BUN/Creat Ratio 24.9 RATIO (10-20); Calcium,Total 8.7 mg/dL (8.5-10.1); Chloride 112 mmol/L (98-107); Creatinine, Serum 0.72 mg/dL (0.70-1.30); EST Glomerular Filtration Rate 110 mL/min (>60); Est Glom Filt Rate - Afr Amer 133 mL/min (>60); Glucose 78 mg/dL (74-106); Potassium 3.9 mmol/L (3.5-5.1); Sodium Level 144 mmol/L (136-145)
[2023-05-30] MEDS: Gabapentin 100 MG Capsule PO ×3 (07:59→18:21)
[2023-05-30 09:21] LABS: Anisocytosis 1+; Hypochromasia RARE; Macrocytosis 1+; Platelet Estimate ADEQUATE (ADEQ)
[2023-05-30] MEDS: Menthol/Lanolin/Calamine/Znox 113 GM Tube 1 APPLIC TOPICAL ×2 (13:18→20:59)
[2023-05-30 15:44] VITALS: BP 165/85; PULSE 63; RESP 14; TEMP 36.5; O2SAT 96
[2023-05-30 20:00] VITALS: PULSE 70; RESP 14; O2SAT 99
[2023-05-30 21:00] VITALS: BP 128/68; PULSE 65
[2023-05-30] MEDS: Losartan Potassium 100 MG Tablet PO (21:00)
[2023-05-30] MEDS: MELATONIN 3 MG TABLET PO (21:00)
[2023-05-31] MEDS: Acetaminophen 500 MG Tablet 1000 MG PO ×2 (01:45→20:38)
[2023-05-31] MEDS: MENTHOL 226.8 GM JAR 1 APPLIC TOPICAL ×2 (01:46→20:37)
[2023-05-31] MEDS: Menthol/Lanolin/Calamine/Znox 113 GM Tube 1 APPLIC TOPICAL ×3 (05:08→20:37)
[2023-05-31] MEDS: Arthritis Pain Compound 60 CLICK TUBE TOPICAL ×2 (05:09→17:52)
[2023-05-31] MEDS: Senna/Docusate Sodium 1 Tablet PO ×2 (05:09→17:52)
[2023-05-31] MEDS: Gabapentin 100 MG Capsule PO ×3 (07:45→17:52)
[2023-05-31 15:25] VITALS: RESP 17
[2023-05-31 16:00] VITALS: BP 120/68; PULSE 69; RESP 14; TEMP 37.2; O2SAT 96
[2023-05-31] MEDS: MELATONIN 3 MG TABLET PO (20:37)
[2023-05-31] MEDS: Losartan Potassium 100 MG Tablet PO (20:38)
[2023-06-01] MEDS: Menthol/Lanolin/Calamine/Znox 113 GM Tube 1 APPLIC TOPICAL ×3 (05:01→21:15)
[2023-06-01] MEDS: Arthritis Pain Compound 60 CLICK TUBE TOPICAL ×2 (05:01→17:41)
[2023-06-01] MEDS: MENTHOL 226.8 GM JAR 1 APPLIC TOPICAL ×2 (05:01→21:21)
[2023-06-01] MEDS: Senna/Docusate Sodium 1 Tablet PO ×2 (05:01→17:41)
[2023-06-01] MEDS: Gabapentin 100 MG Capsule PO ×3 (07:55→17:41)
--- NOTE | 2023-06-01 11:30 | CASEMGMT ---
Social Work Received call from [facility] that they are not INN with pt's insurance, stating the only provider is [facility]. Pt would need to pay privately for all items since [facility] is unable to bill insurance. LISBETH contact [facility] via [facility] with referral and phoned to f/u. [facility] in [facility], requesting to fax referral to review, but confirmed they can service [place] and are INN with insurance. SW faxed referral. Will await outcome. BETY MartinezW
[2023-06-01 13:51] VITALS: BP 116/56; PULSE 75; RESP 16; TEMP 36.4; O2SAT 95
[2023-06-01] MEDS: Losartan Potassium 100 MG Tablet PO (21:14)
[2023-06-01] MEDS: MELATONIN 3 MG TABLET PO (21:14)
[2023-06-01 21:15] VITALS: O2SAT 92
[2023-06-02] MEDS: Acetaminophen 500 MG Tablet 1000 MG PO (00:50)
[2023-06-02] MEDS: Arthritis Pain Compound 60 CLICK TUBE TOPICAL ×2 (06:14→17:10)
[2023-06-02] MEDS: Senna/Docusate Sodium 1 Tablet PO ×2 (06:14→17:09)
[2023-06-02] MEDS: Menthol/Lanolin/Calamine/Znox 113 GM Tube 1 APPLIC TOPICAL ×3 (06:14→21:16)
[2023-06-02] MEDS: Gabapentin 100 MG Capsule PO ×3 (07:45→17:08)
--- NOTE | 2023-06-02 08:19 | CASEMGMT ---
Social Work Lisa requesting a palliative referral to assist with pain management. LISBETH spoke with and agreed to order. Order entered and referral made via secure email to [facility]. BETY MartinezW
[2023-06-02 09:29] VITALS: BMI 17.4
[2023-06-02 10:00] VITALS: PULSE 90; RESP 18; O2SAT 97
[2023-06-02 12:57] VITALS: BP 126/64; PULSE 75; RESP 16; TEMP 37; O2SAT 97
[2023-06-02] MEDS: MELATONIN 3 MG TABLET PO (21:16)
[2023-06-02] MEDS: Losartan Potassium 100 MG Tablet PO (21:17)
[2023-06-02] MEDS: MENTHOL 226.8 GM JAR 1 APPLIC TOPICAL (21:20)
[2023-06-03] MEDS: Senna/Docusate Sodium 1 Tablet PO ×2 (05:03→17:01)
[2023-06-03] MEDS: Menthol/Lanolin/Calamine/Znox 113 GM Tube 1 APPLIC TOPICAL ×3 (05:03→20:32)
[2023-06-03] MEDS: Arthritis Pain Compound 60 CLICK TUBE TOPICAL ×2 (05:04→17:00)
[2023-06-03 14:12] VITALS: BP 154/82; PULSE 71; RESP 14; TEMP 36.7; O2SAT 97
[2023-06-03 20:30] VITALS: BP 132/63; PULSE 67
[2023-06-03] MEDS: MELATONIN 3 MG TABLET PO (20:31)
[2023-06-03] MEDS: Losartan Potassium 100 MG Tablet PO (20:31)
[2023-06-03] MEDS: Acetaminophen 500 MG Tablet 1000 MG PO (20:31)
[2023-06-04] MEDS: Senna/Docusate Sodium 1 Tablet PO ×2 (04:36→17:19)
[2023-06-04] MEDS: Arthritis Pain Compound 60 CLICK TUBE TOPICAL ×2 (04:36→17:19)
[2023-06-04] MEDS: Menthol/Lanolin/Calamine/Znox 113 GM Tube 1 APPLIC TOPICAL ×3 (04:37→22:37)
[2023-06-04] MEDS: Acetaminophen 500 MG Tablet 1000 MG PO (05:11)
[2023-06-04 10:50] VITALS: PULSE 75; O2SAT 97
--- NOTE | 2023-06-04 11:00 | CASEMGMT ---
Social Work BIMS (08/30) and PHQ-9 (01/12) completed for MDS assessment. Carly Alcocer MSW PLUG OVERWRAP MACHINE TENDER
[2023-06-04 15:04] VITALS: BP 128/70; PULSE 72; RESP 16; TEMP 36.7; O2SAT 93
[2023-06-04 16:00] VITALS: BP 163/85; PULSE 72; RESP 14; TEMP 36.8; O2SAT 96
[2023-06-04] MEDS: MELATONIN 3 MG TABLET PO (22:38)
[2023-06-04] MEDS: Losartan Potassium 100 MG Tablet PO (22:38)
[2023-06-04] MEDS: MENTHOL 226.8 GM JAR 1 APPLIC TOPICAL (22:38)
[2023-06-05] MEDS: Acetaminophen 500 MG Tablet 1000 MG PO (02:10)
[2023-06-05] MEDS: Senna/Docusate Sodium 1 Tablet PO (05:43)
[2023-06-05] MEDS: Arthritis Pain Compound 60 CLICK TUBE TOPICAL (05:43)
[2023-06-05] MEDS: Menthol/Lanolin/Calamine/Znox 113 GM Tube 1 APPLIC TOPICAL (05:44)
== END 2023-06-05 11:40 | disposition home health service (06) | DRG 560 ==
PROVIDERS: Internal Medicine; Admitting Provider Family Medicine Geriatric Medicine; PCP Family Medicine; Visit Provider Family Medicine Geriatric Medicine
DX: S32.10XD Unspecified fracture of sacrum, subsequent encounter for fracture with routine healing (principal); M62.82 Rhabdomyolysis; C79.51 Secondary malignant neoplasm of bone; B37.0 Candidal stomatitis; D69.6 Thrombocytopenia, unspecified; C80.1 Malignant (primary) neoplasm, unspecified; G62.9 Polyneuropathy, unspecified; I10 Essential (primary) hypertension; W19.XXXD Unspecified fall, subsequent encounter; Z87.891 Personal history of nicotine dependence; R91.1 Solitary pulmonary nodule; Z79.899 Other long term (current) drug therapy
CPT/HCPCS: 36415; 71046; 78306; 80048; 81001; 83880; 85025; 87086; 87088; 87811; 92507; 92523; 92610; 97110; 97112; 97116; 97129; 97130; 97162; 97166; 97530; 97535; A9503; J7030

== ENCOUNTER → 2023-04-27 | Outpatient (CLI) | payer MEDICARE, SELFPAY | END | disposition home or self-care (01) | LOC: NM 10:30 | PROVIDERS: PCP Family Medicine; Referring Provider Family Medicine Geriatric Medicine; Visit Provider Family Medicine Geriatric Medicine | DX: R93.7 Abnormal findings on diagnostic imaging of other parts of musculoskeletal system (principal) ==

== ENCOUNTER → 2023-07-02 | Outpatient (CLI) | payer MEDICARE, SELFPAY ==
--- NOTE | 2023-07-02 14:33 | CT_ITS ---
INDICATION: 3 month follow up, airspace disease 1.5cm right lower lobe posterior pleural based margin. EXAMINATION: - CT Chest W/O Contrast Injection A radiation dose optimization technique was used for this scan. COMPARISON: Chest CT 04/18/2023 and bone scan 04/27/2023. FINDINGS: Noncontrast serial CT axial images through the chest with coronal and sagittal reformatted series. MEDIASTINUM: Dense coronary artery atherosclerotic calcifications. Borderline ascending aortic aneurysm measuring up to 41 mm in diameter. Small pericardial fluid. LUNG PARENCHYMA: Dominant pulmonary nodules: Short interval increased size of lobulated right middle lobe pulmonary nodule extending along region of focal scarring, currently measuring 16 x 9 mm compared with prior 14 x 5 mm. Prior posterior right middle lobe subpleural nodule has resolved. Left upper lobe 9 mm pulmonary nodule with partial atrial calcification is unchanged from 3 months prior. PLEURA: No pleural effusion. No pneumothorax. BONES: Again is noted left scapular fracture. New T12 vertebral body fracture from 2 months prior. UPPER ABDOMEN: Simple fluid attenuating left interpolar renal lesion, likely renal cyst. Old left anterior rib fracture deformities. Again is noted reverse S-shaped thoracolumbar scoliosis. CT/Chest without Contrast IMPRESSION: Short interval increased size of 16mm lobulated right middle lobe pulmonary nodule extending along region of focal scarring, concerning for recurrent malignancy. New T12 vertebral body fracture from 2 months prior, to include pathologic fracture given concern for malignancy. Prior posterior right middle lobe subpleural nodule has resolved. Borderline ascending aortic aneurysm measuring up to 41 mm in diameter. Electronically Signed: Pierre Pichardo MD at 22:01 EDT ,
== END | disposition home or self-care (01) ==
LOC: CT 14:31
PROVIDERS: PCP Family Medicine; Referring Provider Family Medicine; Visit Provider Family Medicine
DX: R91.8 Other nonspecific abnormal finding of lung field (principal)
CPT/HCPCS: 71250

== ENCOUNTER → 2023-07-11 | Outpatient (CLI) | payer MEDICARE, SELFPAY ==
--- NOTE | 2023-07-11 09:56 | MRI_ITS ---
HISTORY: STENOSIS,SPONDYLOLISTHESIS,RADICULOPATHY. TECHNIQUE: Multiplanar and multisequence MR images of the lumbar spine were obtained without intravenous contrast. 125 images. COMPARISON: CT 07/02/2023, 04/23/2023. FINDINGS: VERTEBRAE: Bone marrow edema of the T12 vertebral body with approximately 40% loss of height, fracture plane extending to the superior endplate, and minimal retropulsion into the spinal canal tilting and abutment of the ventral cord and mild central canal stenosis. Bone marrow edema of the sacrum related to bilateral subacute fractures. Diffuse mildly heterogeneous bone marrow signal noted. Degenerative endplate changes at multiple levels in the lumbar spine particularly L1-2, L2-3, and L5-S1. Bilateral L4 spondylolysis. ALIGNMENT: Chronic 2 to 3 mm retrolisthesis of L1-2, L2-3, and L3-4. Chronic 3 mm anterolisthesis of L4-5. Mild scoliosis. SPINAL CANAL: Normal morphology and position of the conus medullaris at L1. No gross epidural collection or ligamentous disruption. INTERVERTEBRAL DISCS: T11-12: Minimal disc bulge and facet arthropathy without significant central canal stenosis or foraminal narrowing. T12-L1: No significant posterior disc protrusion, central canal stenosis, or foraminal narrowing. L1-2: Mild posterior disc bulge osteophyte complex with facet arthropathy resulting in mild central canal stenosis, moderate left, and mild-moderate right foraminal narrowing. L2-3: Mild posterior disc bulge osteophyte complex with facet arthropathy resulting in mild-moderate central canal stenosis and bilateral foraminal narrowing with mild abutment of the left L2 nerve root. L3-4: Moderate posterior disc bulge osteophyte complex with facet arthropathy resulting in moderate central canal stenosis and mild-moderate bilateral foraminal narrowing. L4-5: Mild posterior disc bulge osteophyte complex with facet arthropathy resulting in mild-moderate central canal stenosis and bilateral foraminal narrowing with probable right L4 nerve root impingement. L5-S1: Mild posterior disc bulge osteophyte complex and facet arthropathy resulting in mild central canal stenosis and moderate bilateral foraminal narrowing with bilateral L5 nerve root abutment. SOFT TISSUES: Mild posterior subcutaneous and intramuscular edema. Bilateral renal cysts. MRI/Spine Lumbar (Routine) IMPRESSION: Acute mild-moderate T12 compression fracture with mild retropulsion into the spinal canal resulting in mild central canal stenosis. Recommend short-term interval follow-up to exclude pathologic fracture. Subacute bilateral sacral fractures. Multilevel degenerative disc disease of the lumbar spine as above. Electronically Signed: Sade Ribera MD at 9:57 EDT ,
== END | disposition home or self-care (01) ==
LOC: MRI 09:33
PROVIDERS: PCP Family Medicine; Referring Provider Family Medicine; Visit Provider Family Medicine
DX: M47.26 Other spondylosis with radiculopathy, lumbar region (principal); M79.671 Pain in right foot; M79.672 Pain in left foot; R29.6 Repeated falls
CPT/HCPCS: 72148

== ENCOUNTER 2023-10-02 16:35 | Emergency (ER) | payer MEDICARE, SELFPAY ==
[2023-10-02 16:37] VITALS: BP 124/69; PULSE 83; RESP 16; TEMP 36.8; O2SAT 98; BMI 17.4
[2023-10-02 16:44] VITALS: BP 109/67; PULSE 83; RESP 16; TEMP 36.8; O2SAT 97
[2023-10-02 17:28] LABS: Absolute Lymphocyte Count 1.12 X10^3/uL (0.83-4.51); Absolute Neutrophil Count 12.8 X10^3/uL (2.0-7.7); Basophil# 0.04 X10^3/uL; Basophil% 0.3 % (0-1); Eosinophil# 0.04 X10^3/uL; Eosinophils% 0.3 % (0-5); Hematocrit 35.9 % (40-54); Hemoglobin 11.6 g/dL (13.0-16.5); Lymphocyte # 1.12 X10^3/ul (0.83-4.51); Lymphocyte % 7.2 % (19-41); Mean Corp Hgb Conc 32.3 g/dL (32-36); Mean Corpuscular Hgb 32.1 pg (27.0-32.0); Mean Corpuscular Volume 99.4 fL (80-94); Mean Platelet Vol. 12.1 fl (6.2-12.0); Monocyte# 1.42 X10^3/uL; Monocyte% 9.2 % (0-10); NRBC Flagged by Analyzer 0 % (0-5); Neutrophil # 12.82 X10^3/uL (2.7-7.7); Neutrophil % 82.7 % (47-70); Platelet Count 240 K/mm3 (150-450); RBC Distribution Width SD 62.7 fl (35.1-43.9); Red Blood Count 3.61 M/mm3 (4.6-6.2); White Blood Count 15.5 K/mm3 (4.4-11.0)
--- NOTE | 2023-10-02 17:35 | RAD_ITS ---
STUDY: X-RAY - ACUTE ABDOMINAL SERIES REASON FOR EXAM: Male, 83 years old. Pain TECHNIQUE: Single view of the chest. Supine, and erect view(s) of the abdomen were obtained. COMPARISON: None. FINDINGS: There is hyperinflation of the lungs consistent with chronic obstructive lung disease (COPD). 1 cm nodular opacity in the upper left lung consistent with a known pulmonary nodule. Patient has had recent CT the chest. Normal size heart. Normal mediastinum and yashira. Normal visualized pulmonary arteries. There is atherosclerotic tortuosity of the aortic arch and descending thoracic aorta. There is a non-specific bowel gas pattern. The soft tissue structures of the abdomen and pelvis are unremarkable. Mild dextroscoliosis of the lumbar spine. RAD/Acute Abdomen Inc Chest IMPRESSION: 1. Emphysema with known left upper lobe nodule. 2. Nonspecific bowel gas pattern. 3. No pneumoperitoneum. Electronically Signed: Elmer Medina MD at 17:57 EST ,
[2023-10-02 17:37] LABS: Anion Gap 5 (5-15); BUN 29 mg/dL (7-18); BUN/Creat Ratio 22.8 RATIO (10-20); Calcium,Total 9.7 mg/dL (8.5-10.1); Chloride 108 mmol/L (98-107); Creatinine, Serum 1.27 mg/dL (0.70-1.30); EST Glomerular Filtration Rate 57 mL/min (>60); Est Glom Filt Rate - Afr Amer 69 mL/min (>60); Estimated Creatinine Clearance 31.95 ml/min; Glucose 119 mg/dL (74-106); Potassium 4.5 mmol/L (3.5-5.1); Sodium Level 141 mmol/L (136-145)
--- NOTE | 2023-10-02 18:08 | EX.ED.DYSGE1 ---
HPI History of Present Illness Chief Complaint: Weakness Detail of Chief Complaint: Reported abdominal pain earlier today with diarrhea Informant: patient, family and SNF Onset/Context/Timing Onset: - (Concern for impaction with diarrhea) Context: Sudden Onset Timing: Intermittent Quality: Per HPI narrative Location: GI Current Severity: Gone Maximum Severity: Moderate Worsened by: Unknown Relieved by: Patient was given laxatives Associated Symptoms Associated Symptoms: Initially abdominal discomfort and bloating Narrative Narrative: Patient is an 83-year-old male who presents from nursing facility. He apparently was constipated. He was given medicine to help him move his bowels. He now has diarrhea. The nurse at the facility believes he has an impaction. Patient presently denies abdominal pain. He denies being bloated. He does endorse problems with constipation prior to receiving MiraLAX and milk of mag. There is been no documented fever. He denies fever or chills. He denies headache, visual, ocular auditory symptoms. He denies cardiac or respiratory symptoms. He denies urologic symptoms. Prior similar symptoms: Yes Recent Illness/Hospitalization: No PFSH [facility] Medical History Debility Frequent falls HTN (hypertension) Hypertension Lung nodule seen on imaging study Pulmonary infiltrates on CXR Rhabdomyolysis Sacral fracture, closed Thrombocytopenia Home Medications baclofen 10 mg tablet 5 mg (1/2 x 10 mg) PO TID PRN Muscle Spasm 30 days #90 tabs 05/12/23 [Rx Last Taken Unknown] gabapentin 300 mg capsule 300 mg PO TID 30 days #90 caps 05/12/23 [Rx Last Taken Unknown] losartan 100 mg tablet 100 mg PO DAILY 30 days #30 tabs 05/12/23 [Rx Last Taken Unknown] tramadol 50 mg tablet 50 mg PO Q8H PRN 07/15/23 [History Last Taken Unknown] acetaminophen 325 mg tablet (Tylenol) 650 mg PO Q4H PRN 10/01/23 [History Last Taken Unknown] acetaminophen 650 mg tablet,extended release (Tylenol 8 Hour) 650 mg PO Q8H 10/01/23 [History Last Taken Unknown] finasteride 1 mg tablet 1 mg PO DAILY 10/01/23 [History Last Taken Unknown] melatonin 5 mg capsule mg PO QHS PRN 10/01/23 [History Last Taken Unknown] multivitamin (Multiple Vitamins tablet) 1 tab PO DAILY 10/01/23 [History Last Taken Unknown] Allergy/AdvReac Type Severity Reaction Status Date / Time No Known Allergies Allergy Verified 10/01/23 09:05 Family History Other Dementia Surgical History History of appendectomy History of splenectomy Social History household members: none Smoking Status: Former smoker alcohol intake: never substance use type: does not use ROS ROS ED Constitutional Constitutional ED: Denies chills, fever(s), subjective, sweats or weight loss Eyes Eyes: Denies blurry vision, change in vision or diplopia ENT ENT ED: Denies ear pain, rhinorrhea or sore throat Cardiovascular Cardiovascular: Denies chest pain, orthopnea, palpitations or paroxysmal nocturnal dyspnea Respiratory/Chest Respiratory/Chest: Denies cough, dyspnea, dyspnea on exertion, orthopnea or paroxysmal nocturnal dyspnea Gastrointestinal Gastrointestinal: Reports abdominal pain, constipation, diarrhea and other Details: Detailed in the HPI narrative ; Denies nausea or vomiting Genitourinary Genitourinary ED: Denies dysuria, hematuria or urinary frequency Musculoskeletal Musculoskeletal: Denies arthralgias, back pain or myalgias Neurologic Neurologic: Reports weakness; Denies headache(s) or paresthesias Endocrine Endocrinology: Denies cold intolerance or heat intolerance Hematologic/Lymphatic Hematologic/Lymphatic: Reports systems reviewed and no addt'l complaints, except as documented EXAM Physical Exam Const Vital Signs: 10/02/23 16:37 10/02/23 16:44 10/02/23 16:44 Temperature 98.3 F 98.3 F Temperature Source Oral Oral Pulse Rate 83 83 Respiratory Rate 16 16 Respiratory Effort Normal Blood Pressure 124/69 H 109/67 Blood Pressure Mean 87 81 Pulse Ox 98 97 Oxygen Delivery Method Room Air Room Air Positive well nourished and well developed General Appearance ED: well developed and NAD; Negative for cyanotic, diaphoretic or pallor HEENT Reports moist mucous membranes HEENT Narrative: Head is atraumatic and normocephalic. Ears are normal. Mucosa is moist. Posterior pharynx is normal. Eyes PERRL and EOMs intact bilaterally General Eye ED: Negative for pale conjunctiva or scleral icterus Neck no lymphadenopathy, supple and no JVD Chest Wall inspection of chest normal and palpation of chest normal Resp clear to auscultation bilaterally Cardio regular rate, regular rhythm, S1 normal heart sound, S2 normal heart sound and no murmurs GI non-tender and no masses; Negative for hepatosplenomegaly GI Narrative: Abdomen is tympanitic to percussion. Auscultation: hyperactive bowel sounds Palpation: soft Rectal Exam: normal sphincter tone, prostate normal and other Other Details: Watery fluid noted. There is no evidence of impaction. Narrative: Genitalia is normal. Back/Spine no CVA tenderness Extremity normal to inspection Neuro oriented x3 Psych mental status grossly normal Skin no rashes or lesions noted, no wounds and No skin turgor normal General Skin Exam: Negative for elasticity normal, jaundice or pallor MDM MDM MDM Narrative Medical decision making narrative: Since patient is elderly a CBC was obtained to assess H&H since he has history of anemia in the past. BMP was obtained to assess BUN to creatinine as well as renal function. Also to assess electrolytes and specifically potassium since he has had reported diarrhea since treated for his constipation. X-ray was obtained to determine if there was an impaction higher up that I was not able to palpate on digital exam. History & Record Review Discussion w/independent historian: Patient and Family Lab Data Attestation: I reviewed the patient's lab results. Lab results narrative: Is elevated which is nonspecific. There is no bandemia. H&H is slightly higher than baseline. This may may represent dehydration from his diarrhea. Basic metabolic panel is unremarkable. BUN/creatinine ratio is slightly elevated at 22.8-1. Labs: Laboratory Results - last 24 hr 10/02/23 16:56 WBC 15.5 H RBC 3.61 L Hgb 11.6 L Hct 35.9 L MCV 99.4 H MCH 32.1 H MCHC 32.3 RDW Std Deviation 62.7 H RDW Coeff of Apolonia 17.0 H Plt Count 240 MPV 12.1 H Immature Gran % (Auto) 0.300 Neut % (Auto) 82.7 H Lymph % (Auto) 7.2 L Pine % (Auto) 9.2 Eos % (Auto) 0.3 Baso % (Auto) 0.3 Absolute Neuts (auto) 12.8 H Absolute Lymphs (auto) 1.12 Nucleated RBC % 0 Sodium 141 Potassium 4.5 Chloride 108 H Carbon Dioxide 28.0 Anion Gap 5 BUN 29 H Creatinine 1.27 Estim Creat Clear Calc 31.95 Est GFR (MDRD) Af Amer 69 Est GFR (MDRD) Non-Af 57 L BUN/Creatinine Ratio 22.8 H Glucose 119 H Calcium 9.7 Radiography Chest X-Ray - ED: Read by ED Physician (Abdominal series was obtained. There is evidence of chronic changes with a nodule in the lung portion. There is no ossific gas pattern noted. There is no evidence of free air. There is no evidence to suggest ileus or obstruction.) Diagnostic Testing: Clinical Impression(s) from Imaging Studies Acute Abdomen Series 10/02/23 17:35 IMPRESSION: 1. Emphysema with known left upper lobe nodule. 2. Nonspecific bowel gas pattern. 3. No pneumoperitoneum. Electronically Signed: Elmer Medina MD at 17:57 EST , Treatment and Re-Evaluation :: And son were informed that his work-up is unremarkable. Since he has a benign exam. His exam was repeated at 1810. Patient not complain of any abdominal pain. Discharge Plan Triage Chief Complaint: Weakness ED Provider: Won Santacruz Dx/Rx/DC Orders Clinical Impression: Diarrhea due to drug, Dementia, Leukocytosis Instructions: Anatomy of the Digestive System Prescriptions: No Action melatonin 5 mg capsule PO QHS PRN Rx Instructions: Give 1 tab by mouth as needed at bedtime for insomnia may have 2 tablets if needed multivitamin [Multiple Vitamins] Tablet 1 tab PO DAILY acetaminophen [Tylenol] 325 mg tablet 650 mg PO Q4H PRN acetaminophen [Tylenol 8 Hour] 650 mg tablet extended release 650 mg PO Q8H Rx Instructions: Give 2 tablets daily by mouth three times a day for arthritis pain finasteride 1 mg tablet 1 mg PO DAILY baclofen 10 mg Tablet 5 mg PO TID PRN (Reason: Muscle Spasm) 30 Days Qty: 90 0RF gabapentin 300 mg Capsule 300 mg PO TID 30 Days Qty: 90 0RF losartan 100 mg Tablet 100 mg PO DAILY 30 Days Qty: 30 0RF tramadol 50 mg tablet 50 mg PO Q8H PRN Primary Care Provider: Piero Ngo Referrals: Piero Ngo MD [Primary Care Provider] - 3-5 Days if not improving Disposition Disposition: Home, Self Care
[2023-10-02 18:47] VITALS: BP 115/66; PULSE 86; RESP 16; O2SAT 95
== END 2023-10-02 18:48 | disposition home or self-care (01) ==
PROVIDERS: Emergency Provider Emergency Medicine; PCP Family Medicine; Visit Provider Emergency Medicine
DX: R19.7 Diarrhea, unspecified (principal); F03.90 Unspecified dementia, unspecified severity, without behavioral disturbance, psychotic disturbance, mood disturbance, and anxiety; D72.829 Elevated white blood cell count, unspecified; Z87.891 Personal history of nicotine dependence
CPT/HCPCS: 74022; 80048; 85025; 99285; A4216

== ENCOUNTER → 2023-11-17 | Outpatient (CLI) | payer MEDICARE, SELFPAY ==
--- OUTSIDE RECORDS SUMMARY | 2023-11-17 06:29 | XMS RPT_ITS | CCD ---
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 Operator Name Role Phone Kody Rubin MD Primary Care Provider [phone] KODY RUBIN Attending Unavailable KODY RUBIN Primary Care Unavailable NIEVES MULTANI Referring Unavailable KODY RUBIN Primary Care Unavailable KODY RUBIN Primary Care Unavailable KODY RUBIN Primary Care Unavailable YURI CHATTERJEE Attending Unavailable KODY RUBIN Primary Care Unavailable MIRNA BLACK Referring Unavailable KODY RUBIN Primary Care Unavailable KODY RUBIN Referring Unavailable MIRNA BLACK Attending Unavailable KODY RUBIN Primary Care Unavailable KODY RUBIN Referring Unavailable KODY RUBIN Primary Care Unavailable OKDY RUBIN Referring Unavailable KODY RUBIN Primary Care Unavailable KODY RUBIN Referring Unavailable Medications Current Medications Medication Drug Class(es) Dates Sig (Normalized) Sig (Original) gabapentin 300 mg oral capsule (20 sources) Anti-epileptic Agent Start: 06-18-2023 End: 01-03-2024 take 1 capsule by mouth three times daily gabapentin (NEURONTIN) 300 mg capsule Indications: Lumbar radiculopathy Take 1 capsule by mouth three times daily for 180 days. 90 capsule 5 07/07/2023 01/03/2024 Active Completed/Discontinued Medications Medication Drug Class(es) Dates Sig (Normalized) Sig (Original) acetaminophen 500 mg oral tablet (17 sources) Start: 06-18-2023 take 2 tablets by mouth every eight hours as needed acetaminophen (TYLENOL EXTRA STRENGTH) 500 mg tablet Take 2 tablets by mouth every 8 hours as needed for pain. 0 06/18/2023 Active Problems Active Problems Problem Classification Problem Date Documented Date Episodic/Chronic Coagulation and hemorrhagic disorders (2 sources) Thrombocytopenic disorder; Translations: [Thrombocytopenia, unspecified] Onset: 06-18-2023 06-18-2023 Chronic Deficiency and other anemia (5 sources) Anemia of chronic disease; Translations: [Anemia in other chronic diseases classified elsewhere] Onset: 10-26-2017 08-23-2021 Chronic Delirium, dementia, and amnestic and other cognitive disorders (1 source) Dementia; Translations: [Unspecified dementia without behavioral disturbance] Onset: 10-26-2023 10-26-2023 Chronic Essential hypertension (20 sources) Benign hypertension; Translations: [Essential (primary) hypertension] Onset: 12-30-2017 08-23-2021 Chronic Fluid and electrolyte disorders (1 source) Hyperkalemia; Translations: [Hyperkalemia] Episodic Immunizations and screening for infectious disease (1 source) Patient encounter status; Translations: [Encounter for immunization] Episodic Osteoarthritis (13 sources) Bilateral osteoarthritis of feet; Translations: [Primary osteoarthritis, right ankle and foot] Onset: 07-01-2023 07-01-2023 Chronic Other connective tissue disease (1 source) Pain in both feet; Translations: [Pain in right foot] 06-18-2023 Episodic Other connective tissue disease (1 source) Falls; Translations: [Repeated falls] 06-18-2023 Episodic Other fractures (1 source) Closed fracture sacrum; Translations: [Unspecified fracture of sacrum, subsequent encounter for fracture with routine healing] 07-07-2023 Episodic Other hematologic conditions (1 source) Serum total protein abnormal; Translations: [Other specified abnormalities of plasma proteins] 06-22-2023 Episodic Other lower respiratory disease (1 source) Lung mass; Translations: [Other nonspecific abnormal finding of lung field] 06-19-2023 Episodic Other lower respiratory disease (1 source) Other nonspecific abnormal finding of lung field; Translations: [Lung nodules] Onset: 10-05-2023 Episodic Other non-traumatic joint disorders (1 source) Shoulder pain; Translations: [Pain in left shoulder] Episodic Other non-traumatic joint disorders (1 source) Hip pain; Translations: [Pain in left hip] Episodic Other non-traumatic joint disorders (1 source) Acute ankle pain; Translations: [Pain in right ankle and joints of right foot] 06-18-2023 Episodic Residual codes; unclassified (1 source) Bilateral lower limb edema; Translations: [Localized edema] 06-18-2023 Episodic Spondylosis; intervertebral disc disorders; other back problems (20 sources) Cervical spondylosis; Translations: [Spondylosis without myelopathy or radiculopathy, cervical region] Onset: 06-21-2013 08-23-2021 Chronic Past or Other Problems Problem Classification Problem Date Documented Date Episodic/Chronic Administrative/social admission (20 sources) Repeated prescription; Translations: [Encounter for issue of repeat prescription] Onset: 08-25-2022 Episodic Deficiency and other anemia (20 sources) Macrocytic anemia; Translations: [Nutritional anemia, unspecified] Onset: 07-25-2020 08-23-2021 Episodic E Codes: Fall (2 sources) Accidental fall ; Translations: [Fall (on) (from) other stairs and steps, initial encounter] Onset: 04-17-2023 Episodic Other and unspecified benign neoplasm (20 sources) Benign neoplasm of floor of mouth; Translations: [Benign neoplasm of floor of mouth] Onset: 04-21-2016 08-23-2021 Episodic Other connective tissue disease (1 source) Pain in right foot; Translations: [Foot pain, bilateral] Onset: 06-18-2023 Episodic Other connective tissue disease (1 source) Pain in left foot; Translations: [Foot pain, bilateral] Onset: 06-18-2023 Episodic Other fractures (8 sources) Fracture of twelfth thoracic vertebra; Translations: [Wedge compression fracture of T11-T12 vertebra, initial encounter for closed fracture] Onset: 07-14-2023 07-14-2023 Episodic Other hematologic conditions (1 source) Other specified abnormalities of plasma proteins; Translations: [Abnormal serum protein test] Onset: 06-24-2023 Episodic Other lower respiratory disease (20 sources) Multiple nodules of lung; Translations: [Other nonspecific abnormal finding of lung field] Onset: 11-30-2015 08-23-2021 Episodic Other non-traumatic joint disorders (1 source) Pain in right ankle and joints of right foot; Translations: [Acute bilateral ankle pain] Onset: 06-18-2023 Episodic Other non-traumatic joint disorders (1 source) Pain in left ankle and joints of left foot; Translations: [Acute bilateral ankle pain] Onset: 06-18-2023 Episodic Other non-traumatic joint disorders (1 source) Pain in left shoulder; Translations: [Acute pain of left shoulder] Onset: 04-17-2023 Episodic Other non-traumatic joint disorders (1 source) Pain in left hip; Translations: [Hip pain, left] Onset: 04-17-2023 Episodic Other screening for suspected conditions (not mental disorders or infectious disease) (16 sources) Abnormal radionuclide scan; Translations: [Abnormal results of function studies of other organs and systems] Onset: 06-18-2023 06-18-2023 Episodic Other skin disorders (20 sources) Developmental abnormality of nail; 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] Onset: 04-21-2016 08-23-2021 Episodic Other upper respiratory infections (2 sources) Pharyngitis; Translations: [Acute pharyngitis, unspecified] Onset: 01-01-2023 Episodic Residual codes; unclassified (20 sources) Active living will ; Translations: [Other specified health status] Onset: 08-25-2022 Episodic Residual codes; unclassified (1 source) Localized edema; Translations: [Bilateral leg edema] Onset: 06-18-2023 Episodic Spondylosis; intervertebral disc disorders; other back problems (7 sources) Lumbar radiculopathy; Translations: [Radiculopathy, lumbar region] Onset: 04-17-2023 Episodic Results Test Name Value Interpretation Reference Range Facil ity Vital Signs Date Time Vital Sign Value Performing Clinician Debbie rey 06-18-2023 12:38-0400 Body weight 51.71 kg Kody Rubin MD Work Phone: [facility] 06-18-2023 12:38-0400 Diastolic blood pressure 76 mm[Hg] Kody Rubin MD Work Phone: [facility] 06-18-2023 12:38-0400 Heart rate 72 /min Kody Rubin MD Work Phone: [facility] 06-18-2023 12:38-0400 Respiratory rate 18 /min Kody Rubin MD Work Phone: [facility] 06-18-2023 12:38-0400 Systolic blood pressure 138 mm[Hg] Kody Rubin MD Work Phone: [facility] 04-17-2023 08:55-0400 Body temperature 98.2 [degF] Nieves Multani DEPARTMENT COORDINATOR.LEAD ATHLETE Work Phone: [facility] 04-17-2023 08:55-0400 Body weight 49.99 kg Nieves Multani DEPARTMENT COORDINATOR.LEAD ATHLETE Work Phone: [facility] 04-17-2023 08:55-0400 Diastolic blood pressure 82 mm[Hg] Nieves Multani DEPARTMENT COORDINATOR.LEAD ATHLETE Work Phone: [facility] 04-17-2023 08:55-0400 Heart rate 64 /min Nieves Multani DEPARTMENT COORDINATOR.LEAD ATHLETE Work Phone: [facility] 04-17-2023 08:55-0400 Respiratory rate 18 /min Nieves Multani DEPARTMENT COORDINATOR.LEAD ATHLETE Work Phone: [facility] 04-17-2023 08:55-0400 SaO2% (BldA) [Mass fraction] 100 % Nieves Multani DEPARTMENT COORDINATOR.LEAD ATHLETE Work Phone: [facility] 04-17-2023 08:55-0400 Systolic blood pressure 152 mm[Hg] Nieves Multani DEPARTMENT COORDINATOR.LEAD ATHLETE Work Phone: [facility] 01-01-2023 12:43-0500 Diastolic blood pressure 84 mm[Hg] Yuri MONROE-C Work Phone: [facility] 01-01-2023 12:43-0500 Systolic blood pressure 146 mm[Hg] Yuri MONROE-C Work Phone: [facility] 01-01-2023 11:44-0500 Body temperature 97.7 [degF] Yuri MONROE-C Work Phone: [facility] 01-01-2023 11:44-0500 Body weight 50.35 kg Yuri MONROE-C Work Phone: [facility] 01-01-2023 11:44-0500 Heart rate 66 /min Yuri MONROE-C Work Phone: [facility] 01-01-2023 11:44-0500 Respiratory rate 16 /min Yuri Chatterjee PA-C Work Phone: [facility] 01-01-2023 11:44-0500 SaO2% (BldA) [Mass fraction] 100 % Yuri Chatterjee PA-C Work Phone: [facility] 08-25-2022 14:23-0400 Body height 163.8 cm Kody Rubin MD Work Phone: [facility] 08-25-2022 14:23-0400 Body weight 49.44 kg Kody Rubin MD Work Phone: [facility] 08-25-2022 14:23-0400 Diastolic blood pressure 70 mm[Hg] Kody Rubin MD Work Phone: [facility] 08-25-2022 14:23-0400 Heart rate 64 /min Kody Rubin MD Work Phone: [facility] 08-25-2022 14:23-0400 Respiratory rate 16 /min Kody Rubin MD Work Phone: [facility] 08-25-2022 14:23-0400 Systolic blood pressure 140 mm[Hg] Kody Rubin MD Work Phone: [facility] Encounters Encounter Date Encounter Type Care Provider Facility Start: 10-26-2023 Chart abstracting Kody ny MD Work Phone: [facility] Procedures Date Procedure Procedure Detail Performing Clinician Start: 01-01-2023 STREP A MOLECULAR (POC) Yuri Chatterjee PA-C Work Phone: Start: 08-25-2022 INFLUENZA SEASONAL QUADRIVALENT HIGH DOSE AGE 65+ Kody Rubin MD Work Phone: Start: 08-25-2022 [employer] COVI D-19 BIVALENT BOOSTER VACCINE, AGE 12+ YR Kody Rubin MD Work Phone: Plan of Treatment Date Care Activity Detail Author Start: 06-18-2026 DIABETES SCREEN DIABETES SCREEN [facility] Start: 06-18-2026 Diabetes Screening Diabetes Screenin g [facility] Start: 08-18-2025 DIABETES SCREEN DIABETES SCREEN [facility] Start: 08-25-2023 Urine microalbumin profile DTAP,TDAP ,TD (3 - Tdap) [facility] Immunizations Immunization Date Immunization Notes Care Provider Edson dietz 08-25-2022 COVID-19 booster vaccine, age 12+ yr, bivalent (PFIZER-BIONTECH) Kody Rubin MD Work Phone: [facility] 08-25-2022 influenza, high-dose , quadrivalent vaccine (FLUZONE HIGH DOSE QUADRIVALENT) Kody Rubin MD Work Phone: [facility] 08-25-2022 influenza virus vacc ine, unspecified formulation Kody Rubin MD Work Phone: [facility] 08-23-2021 influenza, high-dose , quadrivalent vaccine (FLUZONE HIGH DOSE QUADRIVALENT) Kody Rubin MD Work Phone: [facility] 08-20-2021 COVID-19 vaccine, ag e 12+ yr (PFIZER-BIONTECH - PURPLE TOP) Kody Rubin MD Work Phone: [facility] Work Phone: 09-27-2020 zoster vaccine recombinant Kody Rubin MD Work Phone: [facility] 07-26-2020 zoster vaccine recombinant Kody Rubin MD Work Phone: [facility] 07-24-2020 influenza, high dose seasonal, preservative-free Kody Rubin MD Work Phone: [facility] 07-28-2019 influenza, high dose seasonal, preservative-free Kody Rubin MD Work Phone: [facility] 07-30-2018 influenza, high dose seasonal, preservative-free Kody Rubin MD Work Phone: [facility] Work Phone: 08-25-2017 influenza, high dose seasonal, preservative-free Kody Rubin MD Work Phone: [facility] 10-28-2016 pneumococcal polysaccharide vaccine, 23 valent Kody Rubin MD Work Phone: [facility] 06-27-2015 pneumococcal conjuga te vaccine, 13 valbrian Rubin MD Work Phone: [facility] Work Phone: 07-28-2012 zoster vaccine, live Kody Rubin MD Work Phone: [facility] Work Phone: 06-21-2012 diphtheria and tetan us toxoids, adsorbed for pediatric use Kody Rubin MD Work Phone: [facility] 07-24-2000 diphtheria and tetan us toxoids, adsorbed for pediatric use Koyd Rubin MD Work Phone: [facility] 02-18-1999 pneumococcal polysaccharide vaccine, 23 valbrian Rubin MD Work Phone: [facility] Work Phone: 09-21-1990 pneumococcal polysaccharide vaccine, 23 valbrian Rubin MD Work Phone: [facility] 02-18-1989 pneumococcal polysaccharide vaccine, 23 valbrian Rubin MD Work Phone: [facility] Payers Date Payer Category Payer Medicare [employer] MEDICARE [employer] GOLD PLUS [id number] 2021-Present [id number] [place] [id number] O [id number] 2019 Medicare [id number] 2019 Private Health Insurance [id number] Social History Date Type Detail Facility Start: 02-02-2017 End: 08-25-2022 Tobacco smoking status NHIS Ex-smoker [facility] Work Phone: End: 03-15-1990 History of tobacco use Current smoker [facility] Work Phone: End: 03-15-1990 History of tobacco use Cigarette Smoker [facility] Work Phone: Start: 09-27-2021 End: 10-26-2023 Alcohol intake Current drinker of alcohol (finding) [facility] Start: 09-27-2021 End: 12-12-2022 Alcohol intake [facility] Work Phone: Start: 09-02-2016 History SDOH Alcohol Comment Occasional. [facility] Start: 02-02-2017 End: 08-25-2022 Tobacco Comment Quit smoking in his 50s. [facility] Start: 1940 Sex Assigned At Not on file [facility] Start: 02-02-2017 End: 08-25-2022 Tobacco use and exposure Smokeless tobacco non-user [facility] Work Phone: Start: 08-15-2022 End: 08-25-2022 Exposure to SARS-CoV-2 (event) Not sure [facility] Start: 12-12-2022 End: 04-17-2023 Tobacco use panel [facility] Work Phone: Adult Depression Screening Assessment 0 [facility] Work Phone: Clinical Notes 08-26-2017 to 10-26-2023 Addendum Note - Kody Rubin MD - 10/26/2023 7:00 PM Monika Trimble LPN - 10/26/2023 5:20 PM Graciela Kurtz RT(R) - 10/05/2023 8:20 AM Maxi Gutiérrez MA - 05/15/2023 1:42 PM EDT Note Date & Type Note Facility 10-26-2023 Note HNO ID: [id number] Author: Monika Pryor LPN Service: ? Author Type: ? Type: Progress Notes Filed: 10/26/2023 5:20 PM Note Text: Scan on 10/26/2023 1:00 PM by Provider, External, PAColetteC: Consultation - Neurology [facility] 10-26-2023 Miscellaneous Notes Addended by: KODY RUBIN on: 10/26/2023 07:00 PM Modules accepted: Orders documented in this encounter [facility] 10-26-2023 History of Present illness Narrative Scan on 10/26/2023 1:00 PM by Provider, Candida, HEVER: Consultation - Neurology documented in this encounter [facility] 10-05-2023 Note HNO ID: [id number] Author: Graciela Ventura RT(Reina) Service: ? Author Type: Plug Cutter Type: Progress Notes Filed: 10/05/2023 12:18 PM Note Text: Radiology Service Progress Note PATIENT NAME: Anastacio Patel DATE OF SERVICE: October 05, 2023 TIME: 12:18 PM PATIENT IDENTITY VERIFICATION COMPLETED USING TWO (2) IDENTIFIERS: Name and Date of confirmed by patient verbally. FALL SCREENING: Has the patient had 2 falls in the last year or 1 fall with injury or currently using an Ambulatory Assistive Device (Walker, Cane, Wheelchair, Crutches, etc.)? No PATIENT GENDER DATA: Male PATIENT RELEVANT IMPLANT DATA REVIEWED: Yes RADIOLOGY DEPARTMENT: CT; Exam(s) Completed: Chest PERIPHERAL IV DATA: Not applicable SIGNED BY: RT Ivan(Reina) October 05, 2023 12:18 PM [facility] 10-05-2023 History of Present illness Narrative Radiology Service Progress Note PATIENT NAME: Anastacio Patel DATE OF SERVICE: October 05, 2023 TIME: 12:18 PM PATIENT IDENTITY VERIFICATION COMPLETED USING TWO (2) IDENTIFIERS: Name and Date of confirmed by patient verbally. FALL SCREENING: Has the patient had 2 falls in the last year or 1 fall with injury or currently using an Ambulatory Assistive Device (Walker, Cane, Wheelchair, Crutches, etc.)? No PATIENT GENDER DATA: Male PATIENT RELEVANT IMPLANT DATA REVIEWED: Yes RADIOLOGY DEPARTMENT: CT; Exam(s) Completed: Chest PERIPHERAL IV DATA: Not applicable SIGNED BY: RT Ivan(Reina) October 05, 2023 12:18 PM documented in this encounter [facility] 10-02-2023 Miscellaneous Notes The following approved medication requests have been transmitted electronically. Requested Prescriptions Signed Prescriptions Disp Refills bisacodyl (DULCOLAX, BISACODYL,) 10 mg supp 30 Each 2 Si Suppository by RECTAL route once daily as needed for constipation. Authorizing Provider: KODY RUBIN MD Fax received from [facility] stating patient is complaining of constipation and requesting an order for suppository. documented in this encounter [facility] 10-02-2023 Miscellaneous Notes The following approved medication requests have been transmitted electronically. Requested Prescriptions Signed Prescriptions Disp Refills traMADol (ULTRAM) 50 mg tablet 90 tablet 1 Sig: Take 1 tablet by mouth every 8 hours as needed for pain. Authorizing Provider: KODY RUBIN MD PDMP website checked and validated. All prescriptions have been APPROPRIATELY filled. No suspicious activity was identified. 10/02/2023 by Kody Rubin MD Received fax from [facility] requesting refill of tramadol 50 mg one tablet every 8 hours as needed. Please send to [facility]. Fax on your desk. Please review. Not sure if this nurse has the correct pharmacy pended. Jarod Campbell LPN documented in this encounter [facility] 07-21-2023 Miscellaneous Notes Patient notified and voiced understanding. Bernice Gutiérrez MA Let Alcon know I reached out and was able to talk with Dr. Smith today. We reviewed his dads blood labs and based on the results he is not concerned about any blood cancer. He just re-stated about having the lung nodule monitored and knows that his dad is seeing Pulmonary for this. Patient son Alcon returned call and went over notes below from Dr Rubin, Alcon is upset the Dr from [facility] said nothing wrong with his father blood. He wanted to discuss fathers lungs which Alcon said already had appt with Pulmonary concerning that. Alcon said if his father has blood cancer he wants to know for sure or not, he already has dementia to deal with. Left message for patient's son to return call. Bernice Gutiérrez MA Let Alcon know that Dr. Smith from [facility] reached out to Dr. Rubin to let us know Alcon did not want to discuss cancer and left without his dad being seen. I did not refer patient to see Dr. Smith for a lung nodule. I sent him there for concern of possibly having multiple Myeloma a blood cancer. If he wants to make sure his dad does not have a blood cancer then he should reschedule that appt. Spoke with pt son who stated that they saw Darrell Lee who stated that she was not concerned about the nodules as she thought it was some scarring or due to having had pneumonia. She told pt that the MRI was normal and that he needed to repeat in again in 3 months. He is scheduled in sep for this repeat test. Stated that they then saw Hem/onc at [facility] who told pt that his blood was fine and that they were concerned more about his chest. Pt stated they advised the hem/onc provider that they were already seeing lead sustainability specialist for the chest so Hem/onc told pt that they didn't need to follow up with him any more. Unable to find any information or office note from [facility]. Sheeba More Ma Can we reach out to sonAlcon and see if he can shed some light on why his dad did not see the sole conditioner/oncologist at [facility], Dr. Dr. Smith for his abnormal blood work and my concern for Multiple Myeloma? Contacted Dr. Alfaro and asked if their was a good time for Dr. Rubin to contact him. He indicated that he was also in between patient's. Doctor only saw the son and son indicated that he wanted no mention of cancer. He did explain after review of the chart that the nodule had grown but with blood work indicated probable non malignant. He suggest that they follow up with Ct future. Doctor never saw the patient and son got up and left. If you have further questions or concerns you can certainly reach out to him. Bernice Gutiérrez MA Let Annemarie know I tried to return call twice yesterday and both times there was no answer. Annemarie from [facility] calling. Reports Dr. Smith there is requesting to speak with Dr. Rubin sometime today, if possible, regarding patient. Annemarie states patient and patient's son was there for a consultation today and pt's son declined pt's visit-did not want to discuss cancer. Dr. Smith can be reached at [phone]. Thank you. documented in this encounter [facility] 07-14-2023 Miscellaneous Notes Faxed referral to [facility]. Bernice Gutiérrez MA Pt's son Alcon called and is notified of MRI results and providers instructions. He voices understanding. Told we would be faxing over the referral. If he does not hear from [facility] in the next few days, he was given their phone # to call. MRI results should be accessible to the physician so son shouldn't need to get an MRI copy. Angelica Morillo RN Let son Alcon know his dad's low back MRI shows a compression fracture at T12 and some disc herniation. Referral placed to see [facility]. He should try to get a copy of the MRI placed on a disc by [facility] to be able to take to his dads appt. Received results from [facility]. Results on provider desk. Bernice Gutiérrez MA documented in this encounter [facility] 07-13-2023 Note HNO ID: [id number] Author: Mirna Black MD Service: ? Author Type: Physician Type: Progress Notes Filed: 07/13/2023 4:13 PM Note Text: . Respiratory [place] Note Patient name: Anastacio Patel PCP: Kody Rubin MD CC: Abnormal chest CT HPI: Anastacio Patel 83 year old male former < 10 pack year smoker with PMH significant for h/o remote splenectomy, HTN, pulmonary nodules, focal RUL bronchiectasis former patient of Dr. Oshea, last seen in 2019. At that time he had a 1.2 cm FITZ non calcified nodule and 1.1 cm RUL nodular area with focal bronchectasis, and mass-like infiltrate RUL and associated hemoptysis first noted in 2014, PET with low level activity of 2.1 SUV in FITZ nodule and SUV 7 in RUL infiltrate, SUV 5.4 in RUL nodular area. S/p EBUS/bronchoscopy negative for malignancy, only showing chronic inflammation. Cultures negative. Serial follow up CT through 2019 showed no change. Surveillance stopped at that time. Recent hospital admission to [facility] in April for fall resulting in fractured sacrum, rhabdomyolysis and possible vertebral mets versus multiple myeloma and a new RLL nodular infiltrate. Three month surveillance chest CT showed resolution of his RLL infiltrate but increasing size of RUL nodular/scar 16 x 9 mm, compared to 14 x 5 mm three months prior. Reviewed and compared images to 2019, scar appears more rounded. Recent labs pertinent for abnormal light chain but negative M-spike. Had MRI of spine with results pending. Scheduled to see hematology at [facility]. No current respiratory symptoms. Denies chest pain, cough, hemoptysis, SOB, wheezing. No weight loss, fevers or night sweats. DATA: Labs: Component Ref Range AND Units 2 wk ago Lazy Y U Free, Serum 3.3 - 19.4 mg/L 34.7 High Comment: Rarely, increased serum free light chains levels may not be detected or accurately quantified due to prozone phenomenon or in high viscosity samples using this immunoturbidimetric assay. Correlation with other laboratory results and clinical findings is recommended. The Lazy Y U Free Light Chain was performed using the Binding Site Optilite immunoturbidimetric method. Result obtained with different assay methods or kits cannot be used interchangeably. Lambda Free, Serum 5.7 - 26.3 mg/L 18.9 Comment: Rarely, increased serum free light chains levels may not be detected or accurately quantified due to prozone phenomenon or in high viscosity samples using this immunoturbidimetric assay. Correlation with other laboratory results and clinical findings is recommended. The Lambda Free Light Chain was performed using the Binding Site Optilite immunoturbidimetric method. Result obtained with different assay methods or kits cannot be used interchangeably. K/L Ratio, Serum 0.26 - 1.65 1.84 High Component Ref Range AND Units 2 wk ago MPA Result No M protein is identified. No M protein is identified. Staff Review (MPA) Reviewed by Neela López M.D. Component Ref Range AND Units 3 wk ago Albumin %, Urine (Prot Electro) % 29.15 Alpha 1 Globulin %, Urine % 4.15 Alpha 2 Globulin %, Urine % 16.65 Beta Globulin %, Urine % 31.55 Gamma Globulin %, Urine % 18.50 Interpretation (Urine Electro) No definitive M protein is identified on protein electrophoresis. No definitive M protein is identified on protein electrophoresis. Staff Review (Urine Electro) Reviewed by Paramjit Pettit MD, Ph.D ([id number]) Component Ref Range AND Units 3 wk ago Albumin for SPE 3.43 - 5.41 g/dL 4.21 Alpha 1 Globulin 0.18 - 0.43 g/dL 0.34 Alpha 2 Globulin 0.42 - 0.98 g/dL 0.58 Beta Globulin 0.61 - 1.17 g/dL 0.98 Gamma Globulin 0.53 - 1.51 g/dL 1.30 Interpretation (Prot Electro) No definitive M protein is identified on protein electrophoresis. An atypical region of restricted mobility is identified on protein electrophoresis. Abnormal Imaging / Diagnostic Studies: DATE OF EXAM: Jan 27 2019 8:16AM [facility] 0541 - CT CHEST WO IVCON / Comparison: 02/01/2018 RESULT: Limitations: None. Lines, tubes, and devices: None. Lung parenchyma and pleura: * Noncalcified 1.2 cm nodule LEFT upper lobe image 69 unchanged * Parenchymal scarring in the RIGHT upper lobe more focal area of nodularity noted on image 93 the nodular area measures 1.1 cm similar to previous study. There is also bronchiectasis in this area similar to the previous study. * Stable subcentimeter nodules in each lung also unchanged Thoracic inlet, heart, and mediastinum: No lymphadenopathy in the axillary, mediastinal, or hilar regions. The thoracic aorta and main pulmonary artery are normal in caliber. The cardiac chambers are normal in size. No coronary artery atherosclerotic calcifications are noted, although the study is not optimized for coronary assessment. No pericardial effusion or thickening. Bones and soft tissues: No destructive bone lesion. (more content not included)... [facility] 07-08-2023 Miscellaneous Notes Noted. Contacted son and they are wanting to see if the MRI can be completed sooner at [facility]. [facility] cannot get MRI until 07/23/2023. Son indicated that father has had a few falls since being at [facility]. He is complaining off back pain. Faxed order for MRI/Demo to [facility]. Placed referral and emailed our referral department. Bernice Gutiérrez MA So I need to know if there is a specialist he is asking for a referral for? I cant just refer someone to the hospital. Pt's son (Alcon) called on behalf of pt, asking for Dr. Rubin to put in a referral to [facility] for back pain issues. Contact Alcon as soon as possible abt referral: [phone] Please advise Yassine Grey documented in this encounter [facility] 07-07-2023 Note HNO ID: [id number] Author: Kody Rubin MD Service: ? Author Type: Physician Type: Progress Notes Filed: 07/07/2023 3:23 PM Note Text: Patient's home health 485 form / care plan for certification period 06/08/2023 to 08/06/2023 reviewed and signed. Relevant medical records were reviewed. Changes were communicated to home health agency [facility] 07-07-2023 History of Present illness Narrative Patient's home health 485 form / care plan for certification period 06/08/2023 to 08/06/2023 reviewed and signed. Relevant medical records were reviewed. Changes were communicated to home health agency documented in this encounter [facility] 07-04-2023 Miscellaneous Notes Son was notified voiced understanding. Please contact to schedule. Bernice Gutiérrez MA Let son know the repeat chest CT shows an increase in the new nodule seen back in April and the concern is for cancer. I have placed an order for a consult to pulmonary. documented in this encounter [facility] 07-02-2023 Miscellaneous Notes Pt's son notified rx was sent to pharm. Jarod Campbell LPN Let son know script for tramadol (ultram) sent to pharmacy. The following approved medication requests have been transmitted electronically. Requested Prescriptions Signed Prescriptions Disp Refills traMADol (ULTRAM) 50 mg tablet 90 tablet 1 Sig: Take 1 tablet by mouth every 8 hours as needed for pain. Authorizing Provider: KODY RUBIN MD Spoke to son and advised pcp/team are out of office today. Apologized that he was not informed earlier by trouble clerk who should of let family know would not be addressed today. Son aware provider driver education road instructor will not prescribe anything since not their patient and if pain if debilitating and can not move needs to go to ER. Did call [facility] and speak to nursing staff who advised patient is up and moving around. Patient does complain of pain but still going to [facility] and able to get out of bed. Nurse advised has order for baclofen prn and arthritic tylenol that they will give. Aware pcp out of office and will forward but if pain is debilitating would need to go to ER. Mirna Parra Ma Patient's son called in again to ask if Dr Rubin has called in any medication for him. Requesting something stronger he said he is in a lot of pain very hard time getting out of bed. Please advise Latricia Tinajero Patient son Alcon calls and states that patient continues to be in a lot of pain. Lisa is having a hard time getting patient out of bed due to patient's pain. Patient has been taking tylenol extra strength as prescribed by provider but that is not helping with patient's pain. Son is calling to request pain medications for patient. Son states that Lisa had told him to ask for either percocet, norco, or ultram. Son asking if prescription can be sent to [facility] so that he can pick this up for patient? Please review and advise, Kellie Eason RN documented in this encounter [facility] 06-30-2023 Note HNO ID: [id number] Author: Jarod Campbell LPN Service: ? Author Type: ? Type: Progress Notes Filed: 07/01/2023 12:27 AM Note Text: Scan on 06/30/2023 8:53 AM by Provider, External, PA-C: Consultation - PT/OT/Speech [facility] 06-30-2023 Miscellaneous Notes Son (Alcon) calls and results and recommendation reviewed. Alcon verbalizes understanding but requests referral be sent to [facility] at [facility]. Faxed per request. Opal Quiroz RN Left message for pt's son to contact office. Jarod Campbell LPN Let patient know his dad's Lazy Y U proteins are elevated along with the kappa/lamda ratio. Would like him to see hematology for further eval especially with the abnormal bone scan. Patient's son, Alcon calling for lab results done 06/24/23. Miranda Garner RN documented in this encounter [facility] 06-30-2023 History of Present illness Narrative Scan on 06/30/2023 8:53 AM by Provider, External, PAVictorino: Consultation - PT/OT/Speech documented in this encounter [facility] 06-24-2023 Miscellaneous Notes Pt's son advised of Dr Rubin's message, verbalizes understanding. Jarod Campbell LPN Being more active can help if patient is able. Taking tylenol arthritis 650 mg two every 8 hrs (ie. three times a day can help lesson the pain). There is no cure and is an aging issue related to things we did growing up. Son notified and voiced understanding. Any treatment that would be helpful for the pain? Bernice Gutiérrez MA Let son know the x-ray of both feet show not acute issues. There is mild arthritis in both feet and this can cause foot pain. documented in this encounter [facility] 06-23-2023 Miscellaneous Notes Called son and answered questions. Pt's son advised of Dr Rubin's message and instructions. Son verbalizes understanding. States it may be Thurs before they can get to lab. Son advises he called in today regarding results. He is aware x-ray of ankle is still in progress. States nurse he spoke with told him labs for multiple myeloma were still pending and was wanting to know what this was for. Son is wanting Dr Rubin to call him personally if possible. States pt is in [facility] and he has a couple of questions for Dr Rubin regarding pt thinks he is ready to go home. Son has talked to PT/OT and they do not feel pt is ready. Can reach son at number listed. Jarod Campbell LPN Let son know the serum protein test shows a possible atypical region and will need some additional labs done. Orders placed. monoclonal protein analysis and serum free light chain analysis documented in this encounter [facility] 06-22-2023 Miscellaneous Notes Son notified. Bibiana Billy LPN Let son, Alcon, know his dad's blood count shows his chronic anemia is stable and no low platelets. Thyroid lab, electrolytes, liver and kidney functions were all ok. The labs looking into the possibility of multiple myeloma are still pending. documented in this encounter [facility] 06-18-2023 Note HNO ID: [id number] Author: Savanna De Anda RT(R) Service: Radiology Author Type: Technologist Type: Progress Notes Filed: 06/18/2023 2:39 PM Note Text: Radiology Service Progress Note PATIENT NAME: Anastacio Patel DATE OF SERVICE: June 18, 2023 TIME: 2:24 PM PATIENT IDENTITY VERIFICATION COMPLETED USING TWO (2) IDENTIFIERS: Name and Date of confirmed by patient verbally. FALL SCREENING: Has the patient had 2 falls in the last year or 1 fall with injury or currently using an Ambulatory Assistive Device (Walker, Cane, Wheelchair, Crutches, etc.)? Yes, Patient High Risk for Falls What interventions were put in place to prevent falls during this visit? Offered Assistance with Transfers/Clothing and Instructed Patient to Remain Seated (Not on Exam Table) Until Exam PATIENT GENDER DATA: Male PATIENT RELEVANT IMPLANT DATA REVIEWED: Not Applicable RADIOLOGY DEPARTMENT: General X-ray: Exam(s) Completed: Lower Extremity X-Ray(s): Foot, Bilateral PERIPHERAL IV DATA: Not applicable SIGNED BY: RT Skyla(R) June 18, 2023 2:24 PM [facility] 06-18-2023 Note HNO ID: [id number] Author: Kody Rubin MD Service: ? Author Type: Physician Type: Progress Notes Filed: 06/21/2023 1:45 PM Note Text: Chief Complaint Patient presents with: Pain HPI Anastacio Patel is a 83 year old male who presents here today for Hospital Discharge Follow up.. 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 A MRI of the cervical spine did not show any lesions in the C7 vertebral bodies and felt the changes were related to red marrow activation however w/u for multiple myeloma was advised. A nuclear bone scan was done which showed no issues in the C7 vertebral bodies. There was the presence of a 1.5 RLL posterior plural base lesion on chest CT from 04/18/2023 that he should have a repeat CT in 3-6 months. Patient has been having bilateral lower leg swelling for about the past month and had this prior to leaving the hospital. They tried compression socks with little to know benefit. He is sitting more and laying more. He has been getting therapy at [facility] but because of the edema and pain in his ankles he can not walk long. No difficulty starting urination or fecal incontinence. Past medical history, appointments, medications, allergies reviewed. 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 Multiple Sclerosis Brother 01/2017, age 76. Patient Allergies ALLERGIES No Known Allergies Current Medications Current Outpatient Medications on File Prior to Visit Medication Sig gabapentin (NEURONTIN) 100 mg capsule Take 2 tablets daily for nerve pain (Patient taking differently: Take 300 mg by mouth three times daily. Take 2 tablets daily for nerve pain) DAILY MULTIVITAMIN TAB Take one(1) tablet daily. lisinopril (ZESTRIL) 10 mg tablet Take 1 tablet by mouth once daily. (Patient not taking: Reported on 06/18/2023) hydrocortisone 2.5 % cream Apply 1 application to affected area twice daily. APPLY TO AFFECTED AREAS finasteride (PROPECIA) 1 mg tablet Take 1 tablet by mouth once daily. meclizine (ANTIVERT) 25 mg tab Take 1 tablet by mouth every 6 hours as needed (dizziness). No current facility-administered medications on file prior to visit. Social History Social History Tobacco Use Smoking status: Former Packs/day: 0.25 Years: 30.00 Total pack years: 7.50 Types: Cigarettes Quit date: 03/15/1990 Years since quittin.2 Smokeless tobacco: Never Tobacco comments: Quit smoking in his 50s. Substance Use Topics Alcohol use: Yes Alcohol/week: 1.0 standard drink of alcohol Types: 1 Cans of beer per week Comment: Occasional. Drug use: No Review of Symptoms REVIEW OF SYSTEMS RESPIRATORY: Negative for cough, hemoptysis, wheezing, COPD, dyspnea or shortness of breath CARDIOVASCULAR: Negative for chest pain, hypertension, CHF or palpitations. See HPI MUSCULOSKELETAL: has mild pain in the lower back. Has pain in the ankles and with sitting it's a mild discomfort. With walking about 25 feet his ankles have pain at a 6-8/10 pain. Relived with sitting. Note aware of having any ankle x-rays. Denies any pain in the ankles before his fall that broke his pelvis. EXAM: BP 138/76 (BP Site: Left Arm, BP Position: Sitting, BP Cuff Size: Regular Adult) Pulse 72 Resp 18 Wt 51.7 kg (114 lb) BMI 19.27 kg/m? General Appearance: Well appearing, alert, in no acute distress, well-hydrated, well nourished.. Lungs: Lungs clear to auscultation. No wheezing, rhonchi, rales.. Heart: RRR without murmur, gallop, or rubs. No ectopy. Abdomen: Normal abdominal exam, Abdomen soft, non-tender. Bowel sounds normal. No masses, organomegaly. Extremities: No deformities, skin discoloration, he has 1+ pitting edema in ankles up to the lower 1/3 on both sides. No pain to palpation. Slight tenderness in the ankles (more content not included)... [facility] 06-18-2023 History of Present illness Narrative Chief Complaint Patient presents with: Pain HPI Anastacio Patel is a 83 year old male who presents here today for Hospital Discharge Follow up.. 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 A MRI of the cervical spine did not show any lesions in the C7 vertebral bodies and felt the changes were related to red marrow activation however w/u for multiple myeloma was advised. A nuclear bone scan was done which showed no issues in the C7 vertebral bodies. There was the presence of a 1.5 RLL posterior plural base lesion on chest CT from 04/18/2023 that he should have a repeat CT in 3-6 months. Patient has been having bilateral lower leg swelling for about the past month and had this prior to leaving the hospital. They tried compression socks with little to know benefit. He is sitting more and laying more. He has been getting therapy at [facility] but because of the edema and pain in his ankles he can not walk long. No difficulty starting urination or fecal incontinence. Past medical history, appointments, medications, allergies reviewed. 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 Multiple Sclerosis Brother 01/2017, age 76. Patient Allergies ALLERGIES No Known Allergies Current Medications Current Outpatient Medications on File Prior to Visit Medication Sig gabapentin (NEURONTIN) 100 mg capsule Take 2 tablets daily for nerve pain (Patient taking differently: Take 300 mg by mouth three times daily. Take 2 tablets daily for nerve pain) DAILY MULTIVITAMIN TAB Take one(1) tablet daily. lisinopril (ZESTRIL) 10 mg tablet Take 1 tablet by mouth once daily. (Patient not taking: Reported on 06/18/2023) hydrocortisone 2.5 % cream Apply 1 application to affected area twice daily. APPLY TO AFFECTED AREAS finasteride (PROPECIA) 1 mg tablet Take 1 tablet by mouth once daily. meclizine (ANTIVERT) 25 mg tab Take 1 tablet by mouth every 6 hours as needed (dizziness). No current facility-administered medications on file prior to visit. Social History Social History Tobacco Use Smoking status: Former Packs/day: 0.25 Years: 30.00 Total pack years: 7.50 Types: Cigarettes Quit date: 03/15/1990 Years since quittin.2 Smokeless tobacco: Never Tobacco comments: Quit smoking in his 50s. Substance Use Topics Alcohol use: Yes Alcohol/week: 1.0 standard drink of alcohol Types: 1 Cans of beer per week Comment: Occasional. Drug use: No Review of Symptoms REVIEW OF SYSTEMS RESPIRATORY: Negative for cough, hemoptysis, wheezing, COPD, dyspnea or shortness of breath CARDIOVASCULAR: Negative for chest pain, hypertension, CHF or palpitations. See HPI MUSCULOSKELETAL: has mild pain in the lower back. Has pain in the ankles and with sitting it's a mild discomfort. With walking about 25 feet his ankles have pain at a 6-8/10 pain. Relived with sitting. Note aware of having any ankle x-rays. Denies any pain in the ankles before his fall that broke his pelvis. EXAM: BP 138/76 (BP Site: Left Arm, BP Position: Sitting, BP Cuff Size: Regular Adult) Pulse 72 Resp 18 Wt 51.7 kg (114 lb) BMI 19.27 kg/m General Appearance: Well appearing, alert, in no acute distress, well-hydrated, well nourished.. Lungs: Lungs clear to auscultation. No wheezing, rhonchi, rales.. Heart: RRR without murmur, gallop, or rubs. No ectopy. Abdomen: Normal abdominal exam, Abdomen soft, non-tender. Bowel sounds normal. No masses, organomegaly. Extremities: No deformities, skin discoloration, he has 1+ pitting edema in ankles up to the lower 1/3 on both sides. No pain to palpation. Slight tenderness in the ankles to palpation. Health Maintenance List ADVANCE DIRECTIVE DISCUSSION due on 11/16/2022 COVID-19 VACCINE(6 - Pfizer series) due on 12/26/2022 DTAP,TDAP,TD(3 - Tdap) due on 08/25/2023 INFLUENZA(1) due on 07/17/2023 DIABETES SCREEN due on 08/18/2025 DEPRESSION ASSESSMENT Completed SHINGRIX VACCINE Completed PNEUMOCOCCAL: 65+ Completed Data reviewed A/P ASSESSMENT/PLAN: 1. Lumbar radiculopathy - ICD9: 724.4, ICD10: M54.16 (primary diagnosis) Chronic low back pain Patient has known arthritis of the lumbar spine with radiculopathy and in the past month he has developed progressive weakness in his lower extremities with increasing falls. He is now getting pain in the lower legs and feet with standing for a prolonged period of time which could indicate sever spinal stenosis in the lower lumbar spine and is affecting his rehab. Needs MRI lumbar spine Cont - GABAPENTIN 300 MG CAPSULE 2. Foot pain, bilateral - ICD9: 729.5, ICD10: M79.671, M79.672 - XR FOOT GENERAL 3V AP/LAT/OBL BILATERAL 3. Acute bilateral ankle pain - ICD9: 719.47, 338.19, ICD10: M25.571, M25.572 - XR FOOT GENERAL 3V AP/LAT/OBL BILATERAL 4. Bilateral leg edema - ICD9: 782.3, ICD10: R60.0 - at this time discussed Tx using the compression socks and elevation and increased calf exercises to help reduce edema. Would not start a diuretic at this time. Check - TSH BLD 5. Abnormal radionuclide bone scan - ICD9: 794.9, ICD10: R94.8 Check - CBC + DIFF - PROTEIN ELECT RND UR W/INTERP - PROTEIN ELECTROPHORESIS SERUM W/INTERP 6. Benign hypertension - ICD9: 401.1, ICD10: I10 - Controlled - Continue current medications - Recommend home blood pressure monitoring, to bring results to next visit - Encouraged sodium restriction, DASH or Mediterranean diet - Recommend regular aerobic exercise - COMP METABOLIC PANEL 7. Thrombocytopenia (HCC) - ICD9: 287.5, ICD10: D69.6 Check - CBC + DIFF 8. Osteoarthritis of spine with radiculopathy, lumbar region - ICD9: 721.3, ICD10: M47.26 - check MRI 9. Repeated falls - ICD9: 781.99, ICD10: R29.6 - check MRI 10. Radiculopathy of lumbar region - ICD9: 724.4, ICD10: M54.16 Check - MRI LUMBAR SPINE WO IVCON 11. Lung mass - ICD9: 786.6, ICD10: R91.8 - will get CT without contrast set up in 1-2 months. I spent a total of 78 minutes on the date of the service which included preparing to see the patient, [id number] patient care, completing clinical documentation, performing a medically appropriate examination, counseling and educating the patient/family/caregiver and ordering medications, tests, or procedures. Kody Rubin MD documented in this encounter [facility] 06-12-2023 Miscellaneous Notes Noted Karen, a speech therapist with [facility] calling, to update PCP that she completed pt's cognitive evaluation yesterday and no further ST services are indicated at this time. Thank you. Cherrie Qureshi RN documented in this encounter [facility] 06-10-2023 Miscellaneous Notes Noted. Nissa OT from [facility] calling to give update on pt. They will be seeing pt 1x per week for 1 week, then 2x per week for 2 weeks then 1x per week for 1 week. No return call needed to Nissa unless concerns or changes. documented in this encounter [facility] 05-15-2023 Note HNO ID: [id number] Author: Bernice Gutiérrez MA Service: ? Author Type: Bulk Intake Worker Type: Progress Notes Filed: 05/15/2023 4:55 PM Note Text: Scan on 05/14/2023 7:50 AM by External Provider, PA-C: Discharge Summary Bernice Gutiérrez MA [facility] 05-15-2023 History of Present illness Narrative Scan on 05/14/2023 7:50 AM by External Provider, PA-C: Discharge Summary Bernice Gutiérrez MA documented in this encounter [facility] 04-29-2023 Note HNO ID: [id number] Author: Bernice Gutiérrez MA Service: ? Author Type: Bulk Intake Worker Type: Progress Notes Filed: 04/29/2023 9:12 PM Note Text: Scan on 04/23/2023 3:26 PM by External Provider, PA-C: X-ray Scan on 04/23/2023 7:49 PM by External Provider, PA-C: CT Scan Scan on 04/23/2023 8:09 PM by External Provider, PA-C: CT Scan Scan on 04/24/2023 1:04 PM by External Provider, PA-C: Discharge Summary Transition of Care Scan on 04/24/2023 3:45 PM by External Provider, PA-C: Consultation - Emergency Medicine Scan on 04/24/2023 5:19 PM by External Provider, PA-C: Discharge Summary Scan on 04/27/2023 3:20 PM by External Provider, PA-C: Bone Density Bernice Gutiérrez MA [facility] 04-29-2023 History of Present illness Narrative Scan on 04/23/2023 3:26 PM by External Provider, PA-C: X-ray Scan on 04/23/2023 7:49 PM by External Provider, PA-C: CT Scan Scan on 04/23/2023 8:09 PM by External Provider, PA-C: CT Scan Scan on 04/24/2023 1:04 PM by External Provider, PA-C: Discharge Summary Transition of Care Scan on 04/24/2023 3:45 PM by External Provider, PA-C: Consultation - Emergency Medicine Scan on 04/24/2023 5:19 PM by External Provider, PA-C: Discharge Summary Scan on 04/27/2023 3:20 PM by External Provider, PA-C: Bone Density Bernice Gutiérrez MA documented in this encounter [facility] 04-22-2023 Note HNO ID: [id number] Author: Bernice Gutiérrez MA Service: ? Author Type: Bulk Intake Worker Type: Progress Notes Filed: 04/22/2023 8:20 PM Note Text: Scan on 04/18/2023 2:14 PM by External Provider, PA-C: CT Scan Scan on 04/18/2023 2:22 PM by External Provider, PA-C: CT Scan Scan on 04/18/2023 2:26 PM by External Provider, PA-C: X-ray Scan on 04/18/2023 2:28 PM by External Provider, PA-C: CT Scan Scan on 04/18/2023 2:29 PM by External Provider, PA-C: X-ray Scan on 04/18/2023 2:31 PM by External Provider, PA-C: CT Scan Scan on 04/18/2023 4:47 PM by External Provider, PA-C: Consultation - Emergency Medicine Scan on 04/18/2023 4:49 PM by External Provider, PA-C: CT Scan Scan on 04/20/2023 12:50 PM by External Provider, PA-C: MRI Bernice Gutiérrez MA [facility] 04-22-2023 History of Present illness Narrative Scan on 04/18/2023 2:14 PM by External Provider, PA-C: CT Scan Scan on 04/18/2023 2:22 PM by External Provider, PA-C: CT Scan Scan on 04/18/2023 2:26 PM by External Provider, PA-C: X-ray Scan on 04/18/2023 2:28 PM by External Provider, PA-C: CT Scan Scan on 04/18/2023 2:29 PM by External Provider, PA-C: X-ray Scan on 04/18/2023 2:31 PM by External Provider, PA-C: CT Scan Scan on 04/18/2023 4:47 PM by External Provider, PA-C: Consultation - Emergency Medicine Scan on 04/18/2023 4:49 PM by External Provider, PA-C: CT Scan Scan on 04/20/2023 12:50 PM by External Provider, PA-C: MRI Bernice Gutiérrez MA documented in this encounter [facility] 04-21-2023 Note HNO ID: [id number] Author: Jarod Campbell LPN Service: ? Author Type: ? Type: Progress Notes Filed: 04/21/2023 10:35 AM Note Text: Scan on 04/18/2023 4:49 PM by External Provider, PA-C: CT Scan [facility] 04-21-2023 History of Present illness Narrative Scan on 04/18/2023 4:49 PM by External Provider, PA-C: CT Scan documented in this encounter [facility] 04-17-2023 Note HNO ID: [id number] Author: RT Skyla(R) Service: Nuclear Medicine Author Type: Technologist Type: Progress Notes Filed: 04/17/2023 9:43 AM Note Text: Radiology Service Progress Note PATIENT NAME: Anastacio Patel DATE OF SERVICE: April 17, 2023 TIME: 9:16 AM PATIENT IDENTITY VERIFICATION COMPLETED USING TWO (2) IDENTIFIERS: Name and Date of confirmed by patient verbally. FALL SCREENING: Has the patient had 2 falls in the last year or 1 fall with injury or currently using an Ambulatory Assistive Device (Walker, Cane, Wheelchair, Crutches, etc.)? Yes, Patient High Risk for Falls What interventions were put in place to prevent falls during this visit? Offered Assistance with Transfers/Clothing and Instructed Patient to Remain Seated (Not on Exam Table) Until Exam PATIENT GENDER DATA: Male PATIENT RELEVANT IMPLANT DATA REVIEWED: Not Applicable RADIOLOGY DEPARTMENT: General X-ray: Exam(s) Completed: Spine X-Ray(s): Thoracic Pelvis X-Ray: Pelvis with Hip Left Upper Extremity X-Ray(s): Shoulder, AP / TRUE AP / SUPRA OUTLET left PERIPHERAL IV DATA: Not applicable SIGNED BY: RT Skyla(R) April 17, 2023 9:16 AM [facility] 04-17-2023 Note HNO ID: [id number] Author: Nieves Multani APRN.LEAD ATHLETE Service: ? Author Type: Nurse Practitioner Type: Progress Notes Filed: 04/17/2023 10:34 AM Note Text: This note was created using [employer]. Subjective Anastacio Patel is a 83 year old male. 83 year old male with PMH HTN, OA, anemia presents with complaints of fall. Acute onset last night. States he was ascending stairs with slippers that were loose fitting He fell on first step. Endorses he ultimately fell onto left shoulder He denies head trauma or LOC He is complaining of left shoulder back, mid back pain and left hip. Denies blood thinners. States that he was able to get himself up. He resides alone. He drove himself here today. Took Gabapentin with mild relief. The history is provided by the patient. No language tutor was used. Fall The accident occurred Yesterday. Fall occurred: ascending stairs. He fell from a height of 1 to 2 ft. He landed on Carpet. There was no blood loss. The point of impact was the left shoulder. The pain is present in the left shoulder. The pain is at a severity of 6/10. The pain is moderate. He was Ambulatory at the scene. There was No entrapment after the fall. There was No alcohol use involved in the accident. Pertinent negatives include no visual change, no fever, no numbness, no abdominal pain, no bowel incontinence, no nausea, no vomiting, no hematuria, no headaches, no hearing loss, no loss of consciousness and no tingling. The symptoms are aggravated by activity and ambulation. Treatments tried: gabapentin. The treatment provided mild relief. 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 MEDICATIONS lisinopril (ZESTRIL) 10 mg tablet Take 1 tablet by mouth once daily. hydrocortisone 2.5 % cream Apply 1 application to affected area twice daily. APPLY TO AFFECTED AREAS finasteride (PROPECIA) 1 mg tablet Take 1 tablet by mouth once daily. gabapentin (NEURONTIN) 100 mg capsule Take 2 tablets daily for nerve pain meclizine (ANTIVERT) 25 mg tab Take 1 tablet by mouth every 6 hours as needed (dizziness). DAILY MULTIVITAMIN TAB Take one(1) tablet daily. FAMILY HISTORY Problem Relation Age of Onset Alzheimer's Disease Father Cancer Son Testicular cancer(2004). Multiple Sclerosis Brother 01/2017, age 76. Social History Tobacco Use Smoking status: Former Packs/day: 0.25 Years: 30.00 Pack years: 7.50 Types: Cigarettes Quit date: 03/15/1990 Years since quittin.1 Smokeless tobacco: Never Tobacco comments: Quit smoking in his 50s. Substance Use Topics Alcohol use: Yes Alcohol/week: 1.0 standard drink Types: 1 Cans of beer per week Comment: Occasional. Drug use: No Review of Systems Constitutional: Negative for fever. Eyes: Negative for pain, discharge and itching. Respiratory: Negative for apnea, choking and chest tightness. Cardiovascular: Negative for chest pain, palpitations and leg swelling. Gastrointestinal: Negative for abdominal pain, bowel incontinence, nausea and vomiting. Genitourinary: Negative for hematuria. Musculoskeletal: Positive for arthralgias and back pain. Negative for gait problem and neck pain. Skin: Negative for color change, pallor, rash and wound. Allergic/Immunologic: Positive for immunocompromised state. Negative for environmental allergies. Neurological: Negative for tingling, loss of consciousness, numbness and headaches. Hematological: Negative for adenopathy. Does not bruise/bleed easily. Psychiatric/Behavioral: Negative for agitation and behavioral problems. Objective BP 152/82 Pulse 64 Temp 36.8 ?C (98.2 ?F) (Tympanic) Resp 18 Wt 50 kg (110 lb 3.2 oz) SpO2 100% BMI 18.62 kg/m? Physical Exam Vitals and nursing note reviewed. Constitutional: General: He is not in acute distress. Appearance: Normal appearance. He is not ill-appearing, toxic-appearing or diaphoretic. HENT: Head: Normocephalic and atraumatic. Right Ear: External ear normal. Left Ear: External ear normal. Nose: Nose normal. No congestion (more content not included)... [facility] 04-17-2023 Instructions Nieves Multani APRN.[facility] - 04/17/2023 10:19 AM EDT R.I.C.E. The general care of your injury includes the following: Resting, Icing, Compressing and Elevating the injured area. Remember this as RICE. REST: Limit the use of the injured body part. ICE: By applying ice to the affected area, swelling and pain can be reduced. Place some ice cubes in a re-sealable (Ziploc) bag and add some water. Put a thin washcloth between the bag and your skin. Apply the ice bag to the area for at least 20 minutes. Do this at least 4 times per day. Using the ice for longer times and more frequently is OK. NEVER APPLY ICE DIRECTLY TO THE SKIN. COMPRESS: Compression means to apply pressure around the injured area such as with a splint, cast or an lelo bandage. Compression decreases swelling and improves comfort. Compression should be tight enough to relieve swelling but not so tight as to decrease circulation. Increasing pain, numbness, tingling, or change in skin color, are all signs of decreased circulation. ELEVATE: Elevate the injured part. For example, elevate your foot by placing it on a chair while sitting, or propping it up on pillows when lying down. documented in this encounter [facility] 04-17-2023 History of Present illness Narrative This note was created using [employer]. Subjective Anastacio Patel is a 83 year old male. 83 year old male with PMH HTN, OA, anemia presents with complaints of fall. Acute onset last night. States he was ascending stairs with slippers that were loose fitting He fell on first step. Endorses he ultimately fell onto left shoulder He denies head trauma or LOC He is complaining of left shoulder back, mid back pain and left hip. Denies blood thinners. States that he was able to get himself up. He resides alone. He drove himself here today. Took Gabapentin with mild relief. The history is provided by the patient. No language tutor was used. Fall The accident occurred Yesterday. Fall occurred: ascending stairs. He fell from a height of 1 to 2 ft. He landed on Carpet. There was no blood loss. The point of impact was the left shoulder. The pain is present in the left shoulder. The pain is at a severity of 6/10. The pain is moderate. He was Ambulatory at the scene. There was No entrapment after the fall. There was No alcohol use involved in the accident. Pertinent negatives include no visual change, no fever, no numbness, no abdominal pain, no bowel incontinence, no nausea, no vomiting, no hematuria, no headaches, no hearing loss, no loss of consciousness and no tingling. The symptoms are aggravated by activity and ambulation. Treatments tried: gabapentin. The treatment provided mild relief. 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 MEDICATIONS lisinopril (ZESTRIL) 10 mg tablet Take 1 tablet by mouth once daily. hydrocortisone 2.5 % cream Apply 1 application to affected area twice daily. APPLY TO AFFECTED AREAS finasteride (PROPECIA) 1 mg tablet Take 1 tablet by mouth once daily. gabapentin (NEURONTIN) 100 mg capsule Take 2 tablets daily for nerve pain meclizine (ANTIVERT) 25 mg tab Take 1 tablet by mouth every 6 hours as needed (dizziness). DAILY MULTIVITAMIN TAB Take one(1) tablet daily. FAMILY HISTORY Problem Relation Age of Onset Alzheimer's Disease Father Cancer Son Testicular cancer(2004). Multiple Sclerosis Brother 01/2017, age 76. Social History Tobacco Use Smoking status: Former Packs/day: 0.25 Years: 30.00 Pack years: 7.50 Types: Cigarettes Quit date: 03/15/1990 Years since quittin.1 Smokeless tobacco: Never Tobacco comments: Quit smoking in his 50s. Substance Use Topics Alcohol use: Yes Alcohol/week: 1.0 standard drink Types: 1 Cans of beer per week Comment: Occasional. Drug use: No Review of Systems Constitutional: Negative for fever. Eyes: Negative for pain, discharge and itching. Respiratory: Negative for apnea, choking and chest tightness. Cardiovascular: Negative for chest pain, palpitations and leg swelling. Gastrointestinal: Negative for abdominal pain, bowel incontinence, nausea and vomiting. Genitourinary: Negative for hematuria. Musculoskeletal: Positive for arthralgias and back pain. Negative for gait problem and neck pain. Skin: Negative for color change, pallor, rash and wound. Allergic/Immunologic: Positive for immunocompromised state. Negative for environmental allergies. Neurological: Negative for tingling, loss of consciousness, numbness and headaches. Hematological: Negative for adenopathy. Does not bruise/bleed easily. Psychiatric/Behavioral: Negative for agitation and behavioral problems. Objective BP 152/82 Pulse 64 Temp 36.8 C (98.2 F) (Tympanic) Resp 18 Wt 50 kg (110 lb 3.2 oz) SpO2 100% BMI 18.62 kg/m Physical Exam Vitals and nursing note reviewed. Constitutional: General: He is not in acute distress. Appearance: Normal appearance. He is not ill-appearing, toxic-appearing or diaphoretic. HENT: Head: Normocephalic and atraumatic. Right Ear: External ear normal. Left Ear: External ear normal. Nose: Nose normal. No congestion or rhinorrhea. Mouth/Throat: Mouth: Mucous membranes are moist. Pharynx: Oropharynx is clear. No oropharyngeal exudate or posterior oropharyngeal erythema. Eyes: General: Right eye: No discharge. Left eye: No discharge. Extraocular Movements: Extraocular movements intact. Conjunctiva/sclera: Conjunctivae normal. Pupils: Pupils are equal, round, and reactive to light. Cardiovascular: Rate and Rhythm: Normal rate and regular rhythm. Pulses: Normal pulses. Heart sounds: Normal heart sounds. No murmur heard. No friction rub. No gallop. Pulmonary: Effort: Pulmonary effort is normal. No respiratory distress. Breath sounds: Normal breath sounds. No stridor. No wheezing, rhonchi or rales. Chest: Chest wall: No tenderness. Abdominal: General: Abdomen is flat. There is no distension. Palpations: Abdomen is soft. There is no mass. Tenderness: There is no abdominal tenderness. There is no guarding or rebound. Hernia: No hernia is present. Musculoskeletal: General: No swelling, deformity or signs of injury. Left shoulder: Tenderness present. No swelling, deformity, effusion, laceration or bony tenderness. Decreased range of motion (related to pain.). Cervical back: Normal range of motion and neck supple. No rigidity or tenderness. Thoracic back: No edema or signs of trauma. Left hip: Tenderness (generalized TTP of greater trochanter. No external shortening or rotation. Skin intact. +neuro) present. No deformity, bony tenderness or crepitus. Normal range of motion. Right lower leg: No edema. Left lower leg: No edema. Comments: Diffuse mid thoracic back pain. No midline step off or crepitus Lymphadenopathy: Cervical: No cervical adenopathy. Skin: General: Skin is warm and dry. Capillary Refill: Capillary refill takes less than 2 seconds. Coloration: Skin is not jaundiced or pale. Findings: No bruising, lesion or rash. Neurological: General: No focal deficit present. Mental Status: He is alert and oriented to person, place, and time. Cranial Nerves: No cranial nerve deficit. Sensory: No sensory deficit. Motor: No weakness. Coordination: Coordination normal. Gait: Gait normal. Deep Tendon Reflexes: Reflexes normal. Psychiatric: Mood and Affect: Mood normal. Behavior: Behavior normal. Thought Content: Thought content normal. Assessment and Plan ASSESSMENT/PLAN: 1. Fall (on) (from) other stairs and steps, initial encounter - ICD9: E880.9, ICD10: W10.8XXA (primary diagnosis) Mechanical No head injury or LOC NO red flags - XR SHOULDER GENERAL 3V OR MORE AP/TRUE AP/OTHER LEFT - XR THORACIC LIMITED 2V AP/LAT - XR HIP GENERAL 3V PELV/AP/LAT LEFT 2. Acute pain of left shoulder - ICD9: 719.41, ICD10: M25.512 +injury - XR SHOULDER GENERAL 3V OR MORE AP/TRUE AP/OTHER LEFT-negative for acute RICE OTC analgesics. 3. Acute bilateral thoracic back pain - ICD9: 724.1, ICD10: M54.6 +injury No red flags - Ice for localized tenderness - Xrays- see orders - Patient given instructions use of medications as ordered, intermittent rest, and intermittent use of heat - Follow up in 3 days or sooner if symptoms persist or worsen - XR THORACIC LIMITED 2V AP/LAT 4. Hip pain, left - ICD9: 719.45, ICD10: M25.552 +injury - XR HIP GENERAL 3V PELV/AP/LAT LEFT-negative for acute process RICE OTC analgesics Nieves Multani APRN.BRIAN documented in this encounter [facility] 04-17-2023 Miscellaneous Notes Patient calls to report fall with left shoulder pain. Nurse triage completed. Protocol for shoulder injury recommends see provider within 4 hours. No appointments available. Patient agreeable to [facility] and will head there now. Care advice reviewed. Patient verbalizes understanding. Reason for Disposition Patient has a concerning injury to a specific part of the body (e.g., chest, leg, head) Answer Assessment - Initial Assessment Questions 1. MECHANISM: Patient was walking up the stairs lost his balance and fell to the left side, hitting his left shoulder on the way down. Denies hitting head. 2. DOMESTIC VIOLENCE AND ELDER ABUSE SCREENING: No 3. ONSET: Last night 4. LOCATION: Left side. Shoulder. 5. INJURY: Pain to left shoulder but able to use. 6. PAIN: - MILD (1-3): Doesn't interfere with normal activities - MODERATE (4-7): Interferes with normal activities or awakens from sleep 7. SIZE: No injuries noted. Just pain. 8. OTHER SYMPTOMS: No dizziness, fever, weakness. Protocols used: Falls and [id number] documented in this encounter [facility] 02-20-2023 Miscellaneous Notes Patient has been identified by name and date of : Yes, Patient phones for refill(s): Requested Prescriptions Pending Prescriptions Disp Refills lisinopril (ZESTRIL) 10 mg tablet 90 tablet 1 Sig: Take 1 tablet by mouth once daily. Date of last office visit in primary care: SUNIL 01/01/23 with RR Appointment scheduled 08/05/23 with KANDIS Last 2 Encounter Wt Readings: Date: Wt: 01/01/2023 50.3 kg (111 lb) 08/25/2022 49.4 kg (109 lb) Please advise. Thank you. AMAURY Rudolph documented in this encounter [facility] 01-21-2023 Miscellaneous Notes Not due, we sent a 90 day supply with 3 refills in September. Patient informed to contact pharmacy. Jennifer Marie MA Patient has been identified by name and date of : Yes Requested Prescriptions Pending Prescriptions Disp Refills finasteride (PROPECIA) 1 mg tablet 90 tablet 3 Sig: Take 1 tablet by mouth once daily. RX INSTRUCTIONS: Patient aware RX will be sent to pharmacy. No need to notify patient. Meryl Billy Pss documented in this encounter [facility] 01-08-2023 Miscellaneous Notes Patient has been identified by name and date of : Yes Requested Prescriptions Pending Prescriptions Disp Refills hydrocortisone 2.5 % cream 30 g 10 Sig: Apply 1 application to affected area twice daily. APPLY TO AFFECTED AREAS RX INSTRUCTIONS: Patient aware RX will be sent to pharmacy. No need to notify patient. Bernice Gutiérrez MA Sunil: 08/2022 Nov: 07/2023 Last refill; 04/2022 Patient has been identified by name and date of : Yes Requested Prescriptions Pending Prescriptions Disp Refills hydrocortisone 2.5 % cream 30 g 10 Sig: Apply 1 application to affected area twice daily. APPLY TO AFFECTED AREAS RX INSTRUCTIONS: Patient aware RX will be sent to pharmacy. No need to notify patient. Vandana Johnson Pss documented in this encounter [facility] 2023 Miscellaneous Notes Patient informed via VM. Advised to call back with any questions or concerns. Franchesca Adkins ----- Message from Yuri Chatterjee PA-C sent at 2023 7:22 AM EST ----- Negative for covid/flu. Continue as we discussed. documented in this encounter [facility] 01-01-2023 Note HNO ID: [id number] Author: Yuri Chatterjee PA-C Service: ? Author Type: Physician Roustabout Type: Progress Notes Filed: 01/01/2023 12:50 PM Note Text: Chief Complaint Patient presents with: Sore Throat: X 5 days HPI Anastacio Patel is a 82 year old male who presents here today for Above Complaints.. Patient states developed sore throat on Thursday/Thursday. Is better today. Patient states he did not have had cough or congestion No fever. Feels better today than yesterday. No n/v/d. Has had some mild sinus drainage. Past medical history, appointments, medications, allergies reviewed. 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 Multiple Sclerosis Brother 01/2017, age 76. Patient Allergies ALLERGIES No Known Allergies Current Medications Current Outpatient Medications on File Prior to Visit Medication Sig finasteride (PROPECIA) 1 mg tablet Take 1 tablet by mouth once daily. lisinopril (ZESTRIL, PRINIVIL) 10 mg tablet Take 1 tablet by mouth once daily. gabapentin (NEURONTIN) 100 mg capsule Take 2 tablets daily for nerve pain hydrocortisone 2.5 % cream Apply 1 application to affected area twice daily. APPLY TO AFFECTED AREAS meclizine (ANTIVERT) 25 mg tab Take 1 tablet by mouth every 6 hours as needed (dizziness). DAILY MULTIVITAMIN TAB Take one(1) tablet daily. No current facility-administered medications on file prior to visit. Social History Social History Tobacco Use Smoking status: Former Packs/day: 0.25 Years: 30.00 Pack years: 7.50 Types: Cigarettes Quit date: 03/15/1990 Years since quittin.8 Smokeless tobacco: Never Tobacco comments: Quit smoking in his 50s. Substance Use Topics Alcohol use: Yes Alcohol/week: 1.0 standard drink Types: 1 Cans of beer per week Comment: Occasional. Drug use: No Review of Symptoms REVIEW OF SYSTEMS See hpi EXAM: BP 152/82 (BP Site: Left Arm, BP Position: Sitting, BP Cuff Size: Regular Adult) Pulse 66 Temp 36.5 ?C (97.7 ?F) (Tympanic) Resp 16 Wt 50.3 kg (111 lb) SpO2 100% BMI 18.76 kg/m? BP 146/84 Pulse 66 Temp 36.5 ?C (97.7 ?F) (Tympanic) Resp 16 Wt 50.3 kg (111 lb) SpO2 100% BMI 18.76 kg/m? General Appearance: Well appearing, alert, in no acute distress, well-hydrated, well nourished.. Head: Normocephalic, no masses, lesions, tenderness or abnormalities. Eyes: Anicteric sclera. Pupils are equally round and reactive to light. Extraocular movements are intact. . Ears: External ears normal, canals clear. Nose/Sinuses: Nares normal, septum midline, mucosa normal, no drainage or sinus tenderness. Oropharynx: mild erythema. No exudate. Neck: Supple, no adenopathy; thyroid symmetric, normal size, no bruits. Lungs: Lungs clear to auscultation. No wheezing, rhonchi, rales.. Heart: RRR without murmur, gallop, or rubs. No ectopy. Health Maintenance List ADVANCE DIRECTIVE DISCUSSION due on 11/16/2022 DEPRESSION ASSESSMENT due on 11/16/2022 DTAP,TDAP,TD(3 - Tdap) due on 08/25/2023 DIABETES SCREEN due on 08/18/2025 INFLUENZA Completed SHINGRIX VACCINE Completed COVID-19 VACCINE Completed PNEUMOCOCCAL: 65+ Completed Data reviewed Strep negative. ASSESSMENT/PLAN: 1. Pharyngitis, unspecified etiology - ICD9: 462, ICD10: J02.9 Strep negative Suspect viral or environmental cause. Continue symptom treatment. Will check for covid/flu but patient will be past timeline for antivirals. - STREP A MOLECULAR (POC) - COVID WITH FLUA+B, ROUTINE Yuri Chatterjee PA-C [facility] 01-01-2023 History of Present illness Narrative Chief Complaint Patient presents with: Sore Throat: X 5 days HPI Anastacio Patel is a 82 year old male who presents here today for Above Complaints.. Patient states developed sore throat on Thursday/Thursday. Is better today. Patient states he did not have had cough or congestion No fever. Feels better today than yesterday. No n/v/d. Has had some mild sinus drainage. Past medical history, appointments, medications, allergies reviewed. 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 Multiple Sclerosis Brother 01/2017, age 76. Patient Allergies ALLERGIES No Known Allergies Current Medications Current Outpatient Medications on File Prior to Visit Medication Sig finasteride (PROPECIA) 1 mg tablet Take 1 tablet by mouth once daily. lisinopril (ZESTRIL, PRINIVIL) 10 mg tablet Take 1 tablet by mouth once daily. gabapentin (NEURONTIN) 100 mg capsule Take 2 tablets daily for nerve pain hydrocortisone 2.5 % cream Apply 1 application to affected area twice daily. APPLY TO AFFECTED AREAS meclizine (ANTIVERT) 25 mg tab Take 1 tablet by mouth every 6 hours as needed (dizziness). DAILY MULTIVITAMIN TAB Take one(1) tablet daily. No current facility-administered medications on file prior to visit. Social History Social History Tobacco Use Smoking status: Former Packs/day: 0.25 Years: 30.00 Pack years: 7.50 Types: Cigarettes Quit date: 03/15/1990 Years since quittin.8 Smokeless tobacco: Never Tobacco comments: Quit smoking in his 50s. Substance Use Topics Alcohol use: Yes Alcohol/week: 1.0 standard drink Types: 1 Cans of beer per week Comment: Occasional. Drug use: No Review of Symptoms REVIEW OF SYSTEMS See hpi EXAM: BP 152/82 (BP Site: Left Arm, BP Position: Sitting, BP Cuff Size: Regular Adult) Pulse 66 Temp 36.5 C (97.7 F) (Tympanic) Resp 16 Wt 50.3 kg (111 lb) SpO2 100% BMI 18.76 kg/m BP 146/84 Pulse 66 Temp 36.5 C (97.7 F) (Tympanic) Resp 16 Wt 50.3 kg (111 lb) SpO2 100% BMI 18.76 kg/m General Appearance: Well appearing, alert, in no acute distress, well-hydrated, well nourished.. Head: Normocephalic, no masses, lesions, tenderness or abnormalities. Eyes: Anicteric sclera. Pupils are equally round and reactive to light. Extraocular movements are intact. . Ears: External ears normal, canals clear. Nose/Sinuses: Nares normal, septum midline, mucosa normal, no drainage or sinus tenderness. Oropharynx: mild erythema. No exudate. Neck: Supple, no adenopathy; thyroid symmetric, normal size, no bruits. Lungs: Lungs clear to auscultation. No wheezing, rhonchi, rales.. Heart: RRR without murmur, gallop, or rubs. No ectopy. Health Maintenance List ADVANCE DIRECTIVE DISCUSSION due on 11/16/2022 DEPRESSION ASSESSMENT due on 11/16/2022 DTAP,TDAP,TD(3 - Tdap) due on 08/25/2023 DIABETES SCREEN due on 08/18/2025 INFLUENZA Completed SHINGRIX VACCINE Completed COVID-19 VACCINE Completed PNEUMOCOCCAL: 65+ Completed Data reviewed Strep negative. ASSESSMENT/PLAN: 1. Pharyngitis, unspecified etiology - ICD9: 462, ICD10: J02.9 Strep negative Suspect viral or environmental cause. Continue symptom treatment. Will check for covid/flu but patient will be past timeline for antivirals. - STREP A MOLECULAR (POC) - COVID WITH FLUA+B, ROUTINE Yuri Chatterjee PA-C documented in this encounter [facility] 10-14-2022 Miscellaneous Notes Addended by: YURI SWENSON on: 10/14/2022 12:18 PM Modules accepted: Orders Last office visit: 08/25/22 F/u scheduled: 08/05/23 Sheeba More Ma Patient has been identified by name and date of : Yes Requested Prescriptions Pending Prescriptions Disp Refills finasteride (PROPECIA) 1 mg tablet 90 tablet 1 Sig: Take 1 tablet by mouth once daily. RX INSTRUCTIONS: Patient aware RX will be sent to pharmacy. No need to notify patient. Angelina Tinajero documented in this encounter [facility] 08-27-2022 Miscellaneous Notes Left message for patient to contact office. Bernice Gutiérrez MA Repeat potassium level was normal. documented in this encounter [facility] 08-26-2022 Miscellaneous Notes Patient returned call and went over notes below from Dr Rubin with understanding. He will go to the lab in the morning. Left detailed message on identifiable voicemail. Let patient know lab to get his potassium repeated has been placed. Let him know I'm sorry for forgetting to put the order in during his appt. Patient calls to ask if provider would order lab work that was discussed at appointment. He said he needed something re-checked that was abnormal but couldn't remember what. No orders pended. Recent labs slightly abnormal and wasn't sure what provider had discussed. Opal Quiroz RN documented in this encounter [facility] 08-25-2022 History of Present illness Narrative Medicare Yearly Visit Medical B eligibilty date not able to find Date of last exam 08/23/2021. 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 Cervical arthritis 12/16/2017 Cervical osteoarthritis 06/21/2013 Essential hypertension, benign 10/24/2010 Internal hemorrhoids without mention of complication Macrocytic anemia 07/25/2020 Multiple lung nodules 11/30/2015 Osteoarthritis of spine with radiculopathy, lumbar region 05/04/2018 Rupture of spleen 02[birth year]13[birth year]1950 PAST SURGICAL HISTORY PAST SURGICAL HISTORY Procedure Laterality Date APPENDECTOMY COLONOSCOP W/ OR W/O [facility] SPEC 03/24/06 Repeat in COLONOSCOP W/ OR W/O [facility] SPEC 06/09/16 Colonoscopy EGD W/O OR W/BRUSH/WASH 11/02/2017 EGD HEMORRHOIDECT INTER/EXTER SIMP REMOVAL SPLEEN, TOTAL Splenectomy ALLERGIES: Patient has no known allergies. Medications reviewed: Yes FAMILY HISTORY FAMILY HISTORY Problem Relation Age of Onset Alzheimer's Disease Father Cancer Son Testicular cancer(2004). Multiple Sclerosis Brother 01/2017, age 76. SOCIAL HISTORY: SOCIAL HISTORY Social History Tobacco Use Smoking status: Former Smoker Packs/day: 0.25 Years: 30.00 Pack years: 7.50 Types: Cigarettes Quit date: 03/15/1990 Years since quittin.4 Smokeless tobacco: Never Used Tobacco comment: Quit smoking in his 50s. Substance Use Topics Alcohol use: Yes Alcohol/week: 1.0 standard drinks Types: 1 Cans of beer per week Comment: Occasional. Drug use: No Anastacio works out regularly 7 times per week with stretching exercises and walking. He watches his diet for sodium, low fat and low cholesterol all of the time. List of current specialists seen: none End of Live Planning discussed including patients advanced directive wishes: Yes I am willing to follow Anastacio's advanced directives. PHQ-2 / Depression screen Depression Screening 05/12/2017 05/24/2018 07/28/2019 08/25/2022 PHQ-2 Score 0 0 0 0 Depression screening tool completed and reviewed. Based on score and interview, patient is not at risk for depression. Screening tool discussed with patient, and I recommended no further intervention at this time. Functional Ability/Safety Screen 1. Was the patient's timed Up and Go test unsteady or longer than 30 seconds? No 2. Does the patient need help with the phone, transportation, shopping,preparing meals, housework, laundry, medications or managing money? No 3. Does your home have rugs in the hallway, lack of grab bars in the bathroom, lack of handrails on the stairs or have poor lighting? No Hearing Evaluation: normal PHYSICAL EXAM BP 140/70 (BP Site: Right Arm, BP Position: Sitting, BP Cuff Size: Regular Adult) Pulse 64 Resp 16 Ht 163.8 cm (5' 4.5 ) Wt 49.4 kg (109 lb) BMI 18.42 kg/m Alert and oriented X 3: YES Body mass index is 18.42 kg/m . Visual acuity: seeing optho See below ASSESSMENT/PLAN: 82 year old male The following prevention plan was discussed during the office visit and provided to the patient: See below Kody Rubin MD Chief Complaint Patient presents with: Medicare Wellness Exam HPI Anastacio Patel is a 82 year old male who presents here today for Medicare Annual Visit. 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 Patient has done well. No new issues or concerns. Past medical history, appointments, medications, allergies reviewed. 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 Cervical osteoarthritis 06/21/2013 Internal hemorrhoids without mention of complication Macrocytic anemia 07/25/2020 Multiple lung nodules 11/30/2015 Osteoarthritis of spine with radiculopathy, lumbar region 05/04/2018 Rupture of spleen 02/13/1950 Previous Surgical History PAST SURGICAL HISTORY Procedure Laterality Date APPENDECTOMY COLONOSCOP W/ OR W/O [facility] SPEC 03/24/06 Repeat in COLONOSCOP W/ OR W/O [facility] SPEC 06/09/16 Colonoscopy EGD W/O OR W/BRUSH/WASH 11/02/2017 EGD HEMORRHOIDECT INTER/EXTER SIMP REMOVAL SPLEEN, TOTAL Splenectomy Family History FAMILY HISTORY Problem Relation Age of Onset Alzheimer's Disease Father Cancer Son Testicular cancer(2004). Multiple Sclerosis Brother 01/2017, age 76. Patient Allergies ALLERGIES No Known Allergies Current Medications Current Outpatient Medications on File Prior to Visit Medication Sig gabapentin (NEURONTIN) 100 mg capsule Take 2 tablets daily for nerve pain hydrocortisone 2.5 % cream Apply 1 application to affected area twice daily. APPLY TO AFFECTED AREAS finasteride (PROPECIA) 1 mg tablet Take 1 tablet by mouth once daily. meclizine (ANTIVERT) 25 mg tab Take 1 tablet by mouth every 6 hours as needed (dizziness). DAILY MULTIVITAMIN TAB Take one(1) tablet daily. lisinopril (ZESTRIL, PRINIVIL) 10 mg tablet Take 1 tablet by mouth once daily. No current facility-administered medications on file prior to visit. Social History Social History Tobacco Use Smoking status: Former Packs/day: 0.25 Years: 30.00 Pack years: 7.50 Types: Cigarettes Quit date: 03/15/1990 Years since quittin.4 Smokeless tobacco: Never Tobacco comments: Quit smoking in his 50s. Substance Use Topics Alcohol use: Yes Alcohol/week: 1.0 standard drink Types: 1 Cans of beer per week Comment: Occasional. Drug use: No Review of Symptoms REVIEW OF SYSTEMS GENERAL: No malaise or fevers. Slight weight loss. HEENT: Negative for frequent or significant headaches, No changes in hearing or vision, no nose bleeds or other nasal problems NECK: Negative for lumps, goiter, pain and significant neck swelling RESPIRATORY: Negative for cough, hemoptysis, wheezing, COPD, dyspnea or shortness of breath CARDIOVASCULAR: Negative for chest pain, leg swelling, hypertension, CHF or palpitations GI: No nausea, vomiting, or diarrhea, No heartburn or reflux symptoms, and blood : No history of dysuria, frequency or incontinence MUSCULOSKELETAL: Negative for joint pain or swelling, back pain or muscle pain SKIN: Negative for lesions, rash, and itching PSYCH: Negative for sleep disturbance, mood disorder and recent psychosocial stressors HEMATOLOGY/LYMPHOLOGY: Negative for prolonged bleeding, bruising easily or swollen nodes ENDOCRINE: Negative for cold or heat intolerance, polyuria, polydipsia and goiter NEURO: No history of headaches, syncope, paralysis, seizures or tremors EXAM: BP 140/70 (BP Site: Right Arm, BP Position: Sitting, BP Cuff Size: Regular Adult) Pulse 64 Resp 16 Ht 163.8 cm (5' 4.5 ) Wt 49.4 kg (109 lb) BMI 18.42 kg/m Last 5 Encounter Wt Readings: Date: Wt: 08/25/2022 49.4 kg (109 lb) 09/27/2021 51.3 kg (113 lb) 08/23/2021 51.8 kg (114 lb 3.2 oz) 07/24/2020 51.7 kg (114 lb) 07/28/2019 52.6 kg (116 lb) General Appearance: Well appearing, alert, in no acute distress, well-hydrated, well nourished.. Head: Normocephalic, no masses, lesions, tenderness or abnormalities. Eyes: Anicteric sclera. Pupils are equally round and reactive to light. Extraocular movements are intact. . Ears: External ears, TM's normal, canals clear. Neck: Supple, no adenopathy; thyroid symmetric, normal size, no bruits. Lungs: Lungs clear to auscultation. No wheezing, rhonchi, rales.. Heart: RRR without murmur, gallop, or rubs. No ectopy. Abdomen: Normal abdominal exam, Abdomen soft, non-tender. Bowel sounds normal. No masses, organomegaly. Extremities: No deformities, edema, skin discoloration, Good capillary refill. . Musculoskeletal: Muscular strength intact, No joint swelling, deformity, or tenderness. Peripheral Pulses: Normal. Neurologic: Gait normal. Reflexes normal and symmetric. Sensation to light touch and crainal nerves 2-12 intact.. Health Maintenance List ADVANCE DIRECTIVE DISCUSSION Never done DEPRESSION ASSESSMENT Never done COVID-19 VACCINE(5 - Booster for Pfizer series) due on 05/02/2022 DTAP,TDAP,TD(3 - Tdap) due on 06/21/2022 INFLUENZA(1) due on 07/17/2022 DIABETES SCREEN due on 08/18/2025 SHINGRIX VACCINE Completed PNEUMOCOCCAL: 65+ Completed Data reviewed A/P ASSESSMENT/PLAN: 1. Medicare annual wellness visit, subsequent - ICD9: V70.0, ICD10: Z00.00 (primary diagnosis) - Counseled on healthy diet and regular exercise - Patient was counseled [id number] by myself (the billing provider) for the following immunizations and vaccine components, including side effects: COVID-19 and Influenza. Patient consents for immunization and understands risks and benefits. A VIS sheet on each immunization was given to the patient. - Follow up for annual exam in one year - patient encouraged to work on some weight weight. 2. Benign hypertension - ICD9: 401.1, ICD10: I10 - good control - Continue current medication(s) - Recommended regular aerobic exercise. - Recommend home blood pressure monitoring, to bring results in on next visit - Goal of BP <130/80 3. Macrocytic anemia - ICD9: 281.9, ICD10: D53.9 - stable no changes. 4. Lumbar radiculopathy - ICD9: 724.4, ICD10: M54.16 Chronic low back pain - cont current Tx with Gabapentin. 5. Living will on file at physician's office - ICD9: V49.89, ICD10: Z78.9 - updated 6. Advance directive discussed with patient - ICD9: V65.49, ICD10: Z71.89 - updated 7. Encounter for immunization - ICD9: V03.89, ICD10: Z23 - INFLUENZA SEASONAL QUADRIVALENT HIGH DOSE AGE 65+: given - [email or web address] COVID-19 BIVALENT BOOSTER VACCINE, AGE 12+ YR: given Requested Prescriptions Signed Prescriptions Disp Refills lisinopril (ZESTRIL, PRINIVIL) 10 mg tablet 90 tablet 1 Sig: Take 1 tablet by mouth once daily. F/u in a year for extensive exam I spent a total of 40 minutes on the date of the service which included preparing to see the patient, [id number] patient care, completing clinical documentation, performing a medically appropriate examination, counseling and educating the patient/family/caregiver and ordering medications, tests, or procedures. Kody Rubin MD documented in this encounter [facility] 08-11-2022 Miscellaneous Notes The following approved medication requests have been transmitted electronically. Requested Prescriptions Signed Prescriptions Disp Refills gabapentin (NEURONTIN) 100 mg capsule 180 capsule 3 Sig: Take 2 tablets daily for nerve pain Authorizing Provider: YURI CHATTERJEE PA-C Last office visit: 08/23/21 F/u scheduled: 08/25/22 Sheeba More Ma Patient has been identified by name and date of : Yes Requested Prescriptions Pending Prescriptions Disp Refills gabapentin (NEURONTIN) 100 mg capsule 180 capsule 3 Sig: Take 2 tablets daily for nerve pain RX INSTRUCTIONS: Patient aware RX will be sent to pharmacy. No need to notify patient. Marie [facility] documented in this encounter [facility] 07-23-2022 Miscellaneous Notes Left message of orders on pt's identified vm. Jarod Campbell LPN Let patient know labs placed and a urine test. Pt calling and states he has a wellness exam apt 08/25/22 and would like to get blood work done before apt. Please advise pt when orders are in so he can come in before apt. Also requesting to get his flu shot the day of his apt. Bibiana Billy LPN documented in this encounter [facility] 04-25-2022 Miscellaneous Notes Patient has been identified by name and date of : Yes Pending Prescriptions Disp Refills HYDROCORTISONE 2.5 % TOPICAL CREAM 30 g 10 Sig: Apply 1 application to affected area twice daily. APPLY TO AFFECTED AREAS LUPILLO: No RX INSTRUCTIONS: Patient aware RX will be sent to pharmacy. No need to notify patient. Bernice Gutiérrez MA Sunil: 08/2021 Nov: 08/2022 Last refill: 03/2021 Patient has been identified by name and date of : Yes Pending Prescriptions Disp Refills HYDROCORTISONE 2.5 % TOPICAL CREAM 30 g 10 Sig: Apply 1 application to affected area twice daily. APPLY TO AFFECTED AREAS LUPILLO: No RX INSTRUCTIONS: Patient aware RX will be sent to pharmacy. No need to notify patient. Tosha Ya Pss documented in this encounter [facility] 04-17-2022 Miscellaneous Notes Last refill 12/31/21 Qty: 90 with 1 refill SUNIL 08/23/21 NOV 08/25/22 Jarod Campbell LPN Patient has been identified by name and date of : Yes Pending Prescriptions Disp Refills FINASTERIDE 1 MG TABLET 90 tablet 1 Sig: Take 1 tablet by mouth once daily. LUPILLO: No RX INSTRUCTIONS: Patient aware RX escripted to mail away pharmacy. No need to notify patient. Jennifer Antonio Pss documented in this encounter [facility] documented as of this encounter (statuses as of 04/17/2022) [facility] History of Past illness Narrative* Problem Noted Date Resolved Date Microcytic anemia 08/26/2017 07/25/2020 Hemoptysis 10/24/2015 05/12/2017 Hemoptysis 01/31/2015 06/27/2015 Right middle lobe pneumonia 10/03/201406/16 Plantar wart of left foot 10/15/20092014 Actinic keratosis 04/16/2007 11/29/2014 documented as of this encounter (statuses as of 04/25/2022) [facility] History of Past illness Narrative* Problem Noted Date Resolved Date Microcytic anemia 08/26/2017 07/25/2020 Hemoptysis 10/24/2015 05/12/2017 Hemoptysis 01/31/2015 06/27/2015 Right middle lobe pneumonia 10/03/201406/16 Plantar wart of left foot 10/15/20092014 Actinic keratosis 04/16/2007 11/29/2014 documented as of this encounter (statuses as of 07/23/2022) [facility] History of Past illness Narrative* Problem Noted Date Resolved Date Microcytic anemia 08/26/2017 07/25/2020 Hemoptysis 10/24/2015 05/12/2017 Hemoptysis 01/31/2015 06/27/2015 Right middle lobe pneumonia 10/03/201406/16 Plantar wart of left foot 10/15/20092014 Actinic keratosis 04/16/2007 11/29/2014 documented as of this encounter (statuses as of 08/11/2022) [facility] History of Past illness Narrative* Problem Noted Date Resolved Date Microcytic anemia 08/26/2017 07/25/2020 Hemoptysis 10/24/2015 05/12/2017 Hemoptysis 01/31/2015 06/27/2015 Right middle lobe pneumonia 10/03/201406/16 Plantar wart of left foot 10/15/20092014 Actinic keratosis 04/16/2007 11/29/2014 documented as of this encounter (statuses as of 08/25/2022) [facility] History of Past illness Narrative* Problem Noted Date Resolved Date Microcytic anemia 08/26/2017 07/25/2020 Hemoptysis 10/24/2015 05/12/2017 Hemoptysis 01/31/2015 06/27/2015 Right middle lobe pneumonia 10/03/201406/16 Plantar wart of left foot 10/15/20092014 Actinic keratosis 04/16/2007 11/29/2014 documented as of this encounter (statuses as of 08/26/2022) [facility] History of Past illness Narrative* Problem Noted Date Resolved Date Microcytic anemia 08/26/2017 07/25/2020 Hemoptysis 10/24/2015 05/12/2017 Hemoptysis 01/31/2015 06/27/2015 Right middle lobe pneumonia 10/03/201406/16 Plantar wart of left foot 10/15/20092014 Actinic keratosis 04/16/2007 11/29/2014 documented as of this encounter (statuses as of 08/27/2022) [facility] History of Past illness Narrative* Problem Noted Date Resolved Date Microcytic anemia 08/26/2017 07/25/2020 Hemoptysis 10/24/2015 05/12/2017 Hemoptysis 01/31/2015 06/27/2015 Right middle lobe pneumonia 10/03/201406/16 Plantar wart of left foot 10/15/20092014 Actinic keratosis 04/16/2007 11/29/2014 documented as of this encounter (statuses as of 10/14/2022) [facility] History of Past illness Narrative* Problem Noted Date Resolved Date Microcytic anemia 08/26/2017 07/25/2020 Hemoptysis 10/24/2015 05/12/2017 Hemoptysis 01/31/2015 06/27/2015 Right middle lobe pneumonia 10/03/201406/16 Plantar wart of left foot 10/15/20092014 Actinic keratosis 04/16/2007 11/29/2014 documented as of this encounter (statuses as of 01/01/2023) [facility] History of Past illness Narrative* Problem Noted Date Resolved Date Microcytic anemia 08/26/2017 07/25/2020 Hemoptysis 10/24/2015 05/12/2017 Hemoptysis 01/31/2015 06/27/2015 Right middle lobe pneumonia 10/03/201406/16 Plantar wart of left foot 10/15/20092014 Actinic keratosis 04/16/2007 11/29/2014 documented as of this encounter (statuses as of 2023) [facility] History of Past illness Narrative* Problem Noted Date Resolved Date Microcytic anemia 08/26/2017 07/25/2020 Hemoptysis 10/24/2015 05/12/2017 Hemoptysis 01/31/2015 06/27/2015 Right middle lobe pneumonia 10/03/201406/16 Plantar wart of left foot 10/15/20092014 Actinic keratosis 04/16/2007 11/29/2014 documented as of this encounter (statuses as of 01/08/2023) [facility] History of Past illness Narrative* Problem Noted Date Resolved Date Microcytic anemia 08/26/2017 07/25/2020 Hemoptysis 10/24/2015 05/12/2017 Hemoptysis 01/31/2015 06/27/2015 Right middle lobe pneumonia 10/03/201406/16 Plantar wart of left foot 10/15/20092014 Actinic keratosis 04/16/2007 11/29/2014 documented as of this encounter (statuses as of 01/21/2023) [facility] History of Past illness Narrative* Problem Noted Date Resolved Date Microcytic anemia 08/26/2017 07/25/2020 Hemoptysis 10/24/2015 05/12/2017 Hemoptysis 01/31/2015 06/27/2015 Right middle lobe pneumonia 10/03/201406/16 Plantar wart of left foot 10/15/20092014 Actinic keratosis 04/16/2007 11/29/2014 documented as of this encounter (statuses as of 02/20/2023) [facility] History of Past illness Narrative* Problem Noted Date Resolved Date Microcytic anemia 08/26/2017 07/25/2020 Hemoptysis 10/24/2015 05/12/2017 Hemoptysis 01/31/2015 06/27/2015 Right middle lobe pneumonia 10/03/201406/16 Plantar wart of left foot 10/15/20092014 Actinic keratosis 04/16/2007 11/29/2014 documented as of this encounter (statuses as of 04/17/2023) [facility] History of Past illness Narrative* Problem Noted Date Resolved Date Microcytic anemia 08/26/2017 07/25/2020 Hemoptysis 10/24/2015 05/12/2017 Hemoptysis 01/31/2015 06/27/2015 Right middle lobe pneumonia 10/03/201406/16 Plantar wart of left foot 10/15/20092014 Actinic keratosis 04/16/2007 11/29/2014 documented as of this encounter (statuses as of 04/17/2023) [facility] History of Past illness Narrative* Problem Noted Date Resolved Date Microcytic anemia 08/26/2017 07/25/2020 Hemoptysis 10/24/2015 05/12/2017 Hemoptysis 01/31/2015 06/27/2015 Right middle lobe pneumonia 10/03/201406/16 Plantar wart of left foot 10/15/20092014 Actinic keratosis 04/16/2007 11/29/2014 documented as of this encounter (statuses as of 04/21/2023) [facility] History of Past illness Narrative* Problem Noted Date Resolved Date Microcytic anemia 08/26/2017 07/25/2020 Hemoptysis 10/24/2015 05/12/2017 Hemoptysis 01/31/2015 06/27/2015 Right middle lobe pneumonia 10/03/201406/16 Plantar wart of left foot 10/15/20092014 Actinic keratosis 04/16/2007 11/29/2014 documented as of this encounter (statuses as of 04/23/2023) [facility] History of Past illness Narrative* Problem Noted Date Resolved Date Microcytic anemia 08/26/2017 07/25/2020 Hemoptysis 10/24/2015 05/12/2017 Hemoptysis 01/31/2015 06/27/2015 Right middle lobe pneumonia 10/03/201406/16 Plantar wart of left foot 10/15/20092014 Actinic keratosis 04/16/2007 11/29/2014 documented as of this encounter (statuses as of 04/30/2023) [facility] History of Past illness Narrative* Problem Noted Date Resolved Date Microcytic anemia 08/26/2017 07/25/2020 Hemoptysis 10/24/2015 05/12/2017 Hemoptysis 01/31/2015 06/27/2015 Right middle lobe pneumonia 10/03/201406/16 Plantar wart of left foot 10/15/20092014 Actinic keratosis 04/16/2007 11/29/2014 documented as of this encounter (statuses as of 05/16/2023) [facility] History of Past illness Narrative* Problem Noted Date Diagnosed Date Resolved Date Microcytic anemia 08/26/2017 07/25/2020 Hemoptysis 10/24/2015 05/12/2017 Hemoptysis 01/31/2015 06/27/2015 Right middle lobe pneumonia 10/03/2014 06/27/2015 Plantar wart of left foot 10/15/2009 Actinic keratosis 04/16/2007 11/29/2014 documented as of this encounter (statuses as of 06/10/2023) [facility] History of Past illness Narrative* Problem Noted Date Diagnosed Date Resolved Date Microcytic anemia 08/26/2017 07/25/2020 Hemoptysis 10/24/2015 05/12/2017 Hemoptysis 01/31/2015 06/27/2015 Right middle lobe pneumonia 10/03/2014 06/27/2015 Plantar wart of left foot 10/15/2009 Actinic keratosis 04/16/2007 11/29/2014 documented as of this encounter (statuses as of 06/12/2023) [facility] History of Past illness Narrative* Problem Noted Date Diagnosed Date Resolved Date Microcytic anemia 08/26/2017 07/25/2020 Hemoptysis 10/24/2015 05/12/2017 Hemoptysis 01/31/2015 06/27/2015 Right middle lobe pneumonia 10/03/2014 06/27/2015 Plantar wart of left foot 10/15/2009 Actinic keratosis 04/16/2007 11/29/2014 documented as of this encounter (statuses as of 06/21/2023) [facility] History of Past illness Narrative* Problem Noted Date Diagnosed Date Resolved Date Microcytic anemia 08/26/2017 07/25/2020 Hemoptysis 10/24/2015 05/12/2017 Hemoptysis 01/31/2015 06/27/2015 Right middle lobe pneumonia 10/03/2014 06/27/2015 Plantar wart of left foot 10/15/2009 Actinic keratosis 04/16/2007 11/29/2014 documented as of this encounter (statuses as of 06/22/2023) [facility] History of Past illness Narrative* Problem Noted Date Diagnosed Date Resolved Date Microcytic anemia 08/26/2017 07/25/2020 Hemoptysis 10/24/2015 05/12/2017 Hemoptysis 01/31/2015 06/27/2015 Right middle lobe pneumonia 10/03/2014 06/27/2015 Plantar wart of left foot 10/15/2009 Actinic keratosis 04/16/2007 11/29/2014 documented as of this encounter (statuses as of 06/24/2023) [facility] History of Past illness Narrative* Problem Noted Date Diagnosed Date Resolved Date Microcytic anemia 08/26/2017 07/25/2020 Hemoptysis 10/24/2015 05/12/2017 Hemoptysis 01/31/2015 06/27/2015 Right middle lobe pneumonia 10/03/2014 06/27/2015 Plantar wart of left foot 10/15/2009 Actinic keratosis 04/16/2007 11/29/2014 documented as of this encounter (statuses as of 06/25/2023) [facility] History of Past illness Narrative* Problem Noted Date Diagnosed Date Resolved Date Microcytic anemia 08/26/2017 07/25/2020 Hemoptysis 10/24/2015 05/12/2017 Hemoptysis 01/31/2015 06/27/2015 Right middle lobe pneumonia 10/03/2014 06/27/2015 Plantar wart of left foot 10/15/2009 Actinic keratosis 04/16/2007 11/29/2014 documented as of this encounter (statuses as of 07/01/2023) [facility] History of Past illness Narrative* Problem Noted Date Diagnosed Date Resolved Date Microcytic anemia 08/26/2017 07/25/2020 Hemoptysis 10/24/2015 05/12/2017 Hemoptysis 01/31/2015 06/27/2015 Right middle lobe pneumonia 10/03/2014 06/27/2015 Plantar wart of left foot 10/15/2009 Actinic keratosis 04/16/2007 11/29/2014 documented as of this encounter (statuses as of 07/01/2023) [facility] History of Past illness Narrative* Problem Noted Date Diagnosed Date Resolved Date Microcytic anemia 08/26/2017 07/25/2020 Hemoptysis 10/24/2015 05/12/2017 Hemoptysis 01/31/2015 06/27/2015 Right middle lobe pneumonia 10/03/2014 06/27/2015 Plantar wart of left foot 10/15/2009 Actinic keratosis 04/16/2007 11/29/2014 documented as of this encounter (statuses as of 07/02/2023) [facility] History of Past illness Narrative* Problem Noted Date Diagnosed Date Resolved Date Microcytic anemia 08/26/2017 07/25/2020 Hemoptysis 10/24/2015 05/12/2017 Hemoptysis 01/31/2015 06/27/2015 Right middle lobe pneumonia 10/03/2014 06/27/2015 Plantar wart of left foot 10/15/2009 Actinic keratosis 04/16/2007 11/29/2014 documented as of this encounter (statuses as of 07/07/2023) [facility] History of Past illness Narrative* Problem Noted Date Diagnosed Date Resolved Date Microcytic anemia 08/26/2017 07/25/2020 Hemoptysis 10/24/2015 05/12/2017 Hemoptysis 01/31/2015 06/27/2015 Right middle lobe pneumonia 10/03/2014 06/27/2015 Plantar wart of left foot 10/15/2009 Actinic keratosis 04/16/2007 11/29/2014 documented as of this encounter (statuses as of 07/08/2023) [facility] History of Past illness Narrative* Problem Noted Date Diagnosed Date Resolved Date Microcytic anemia 08/26/2017 07/25/2020 Hemoptysis 10/24/2015 05/12/2017 Hemoptysis 01/31/2015 06/27/2015 Right middle lobe pneumonia 10/03/2014 06/27/2015 Plantar wart of left foot 10/15/2009 Actinic keratosis 04/16/2007 11/29/2014 documented as of this encounter (statuses as of 07/09/2023) [facility] History of Past illness Narrative* Problem Noted Date Diagnosed Date Resolved Date Microcytic anemia 08/26/2017 07/25/2020 Hemoptysis 10/24/2015 05/12/2017 Hemoptysis 01/31/2015 06/27/2015 Right middle lobe pneumonia 10/03/2014 06/27/2015 Plantar wart of left foot 10/15/2009 Actinic keratosis 04/16/2007 11/29/2014 documented as of this encounter (statuses as of 07/14/2023) [facility] of Past illness Narrative* Problem Noted Date Diagnosed Date Resolved Date Microcytic anemia 08/26/2017 07/25/2020 Hemoptysis 10/24/2015 05/12/2017 Hemoptysis 01/31/2015 06/27/2015 Right middle lobe pneumonia 10/03/2014 06/27/2015 Plantar wart of left foot 10/15/2009 Actinic keratosis 04/16/2007 11/29/2014 documented as of this encounter (statuses as of 07/22/2023) [facility] History of Past illness Narrative* Problem Noted Date Diagnosed Date Resolved Date Microcytic anemia 08/26/2017 07/25/2020 Hemoptysis 10/24/2015 05/12/2017 Hemoptysis 01/31/2015 06/27/2015 Right middle lobe pneumonia 10/03/2014 06/27/2015 Plantar wart of left foot 10/15/2009 Actinic keratosis 04/16/2007 11/29/2014 documented as of this encounter (statuses as of 10/02/2023) [facility] History of Past illness Narrative* Problem Noted Date Diagnosed Date Resolved Date Microcytic anemia 08/26/2017 07/25/2020 Hemoptysis 10/24/2015 05/12/2017 Hemoptysis 01/31/2015 06/27/2015 Right middle lobe pneumonia 10/03/2014 06/27/2015 Plantar wart of left foot 10/15/2009 Actinic keratosis 04/16/2007 11/29/2014 documented as of this encounter (statuses as of 10/03/2023) [facility] History of Past illness Narrative* Problem Noted Date Diagnosed Date Resolved Date Microcytic anemia 08/26/2017 07/25/2020 Hemoptysis 10/24/2015 05/12/2017 Hemoptysis 01/31/2015 06/27/2015 Right middle lobe pneumonia 10/03/2014 06/27/2015 Plantar wart of left foot 10/15/2009 Actinic keratosis 04/16/2007 11/29/2014 documented as of this encounter (statuses as of 10/06/2023) [facility] History of Past illness Narrative* Problem Noted Date Diagnosed Date Resolved Date Microcytic anemia 08/26/2017 07/25/2020 Hemoptysis 10/24/2015 05/12/2017 Hemoptysis 01/31/2015 06/27/2015 Right middle lobe pneumonia 10/03/2014 06/27/2015 Plantar wart of left foot 10/15/2009 Actinic keratosis 04/16/2007 11/29/2014 documented as of this encounter (statuses as of 10/15/2023) [facility] History of Past illness Narrative* Problem Noted Date Diagnosed Date Resolved Date Microcytic anemia 08/26/2017 07/25/2020 Hemoptysis 10/24/2015 05/12/2017 Hemoptysis 01/31/2015 06/27/2015 Right middle lobe pneumonia 10/03/2014 06/27/2015 Plantar wart of left foot 10/15/2009 Actinic keratosis 04/16/2007 11/29/2014 documented as of this encounter (statuses as of 10/27/2023) [facility] note* Diagnosis Medication refill Issue of repeat prescriptions [facility] Diagnosis Anemia in other chronic diseases classified elsewhere- Primary Benign hypertension Essential hypertension, benign Macrocytic anemia Unspecified deficiency anemia [facility] Diagnosis Lumbar radiculopathy Thoracic or lumbosacral neuritis or radiculitis, unspecified [facility] Diagnosis Medicare annual wellness visit, subsequent- Primary Routine general medical examination at a [facility] facility Benign hypertension Essential hypertension, benign Macrocytic anemia Unspecified deficiency anemia Lumbar radiculopathy Thoracic or lumbosacral neuritis or radiculitis, unspecified Living will on file at physician's office Advance directive discussed with patient Other specified counseling Encounter for immunization Need for other specified prophylactic vaccination against single bacterial disease [facility] Diagnosis Hyperkalemia- Primary Hyperpotassemia [facility] Diagnosis Medication refill Issue of repeat prescriptions [facility]* Diagnosis Pharyngitis, unspecified etiology- Primary [facility] Diagnosis Medication refill Issue of repeat prescriptions [facility] Diagnosis Fall (on) (from) other stairs and steps, initial encounter- Primary Acute pain of left shoulder Acute bilateral thoracic back pain Hip pain, left Pain in joint, pelvic region and thigh [facility] Diagnosis Lumbar radiculopathy- Primary Thoracic or lumbosacral neuritis or radiculitis, unspecified Foot pain, bilateral Pain in limb Acute bilateral ankle pain Bilateral leg edema Edema Abnormal radionuclide bone scan Nonspecific abnormal results of other specified function study Benign hypertension Essential hypertension, benign Thrombocytopenia (HCC) Thrombocytopenia, unspecified Osteoarthritis of spine with radiculopathy, lumbar region Repeated falls Other symptoms involving nervous and musculoskeletal systems Radiculopathy of lumbar region Thoracic or lumbosacral neuritis or radiculitis, unspecified Lung mass Swelling, mass, or lump in chest documented in this encounter [facility] note* Diagnosis Abnormal serum protein test- Primary Other nonspecific findings on examination of blood documented in this encounter [facility] note* Diagnosis Abnormal radionuclide bone scan Nonspecific abnormal results of other specified function study documented in this encounter [facility] note* Diagnosis Osteoarthritis of spine with radiculopathy, lumbar region- Primary Primary osteoarthritis of both feet documented in this encounter [facility] note* Diagnosis Multiple lung nodules- Primary Other nonspecific abnormal finding of lung field documented in this encounter [facility] note* Diagnosis Closed fracture of sacrum with routine healing, unspecified portion of sacrum, subsequent encounter- Primary Lumbar radiculopathy Thoracic or lumbosacral neuritis or radiculitis, unspecified documented in this encounter [facility] note* Diagnosis Osteoarthritis of spine with radiculopathy, lumbar region- Primary T12 compression fracture, initial encounter ([facility]) documented in this encounter [facility] note* Diagnosis 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, lumbar region documented in this encounter [facility] note* Diagnosis Lung nodules Other nonspecific abnormal finding of lung field [facility] Diagnostic Procedure Only (Urgent) - Closed Specialty Diagnoses / Procedures Referred By Berta medina Referred To Contact XR IMAGING Diagnoses Fall (on) (from) other stairs and steps, initial encounter Hip pain, left Procedures XR HIP GENERAL 3V PELV/AP/LAT LEFT RADEX HIP UNILATERAL WITH PELVIS 2-3 VIEWS Nieves Multani, [address] [place] [address] Xr Imaging Referral ID Status Reason Start Date Expiration Date V isits Requested Visits Authorized [id number] Closed Auto-Generate d Referral 04/17/2023 05/16/2024 1 1 * Diagnostic Procedure Only (Urgent) - Closed Specialty Diagnoses / Procedures Referred By Contac t Referred To Contact XR IMAGING Diagnoses Fall (on) (from) other stairs and steps, initial encounter Acute bilateral thoracic back pain Procedures XR THORACIC LIMITED 2V AP/LAT RADEX SPINE THORACIC 2 VIEWS Nieevs Multani APRN.[employer] [address] [place] [address] Xr Imaging Referral ID Status Reason Start Date Expiration Date V isits Requested Visits Authorized [id number] Closed Auto-Generate d Referral 04/17/2023 05/16/2024 1 1 * Diagnostic Procedure Only (Urgent) - Closed Specialty Diagnoses / Procedures Referred By Contac t Referred To Contact XR IMAGING Diagnoses Fall (on) (from) other stairs and steps, initial encounter Acute pain of left shoulder Procedures XR SHOULDER GENERAL 3V OR MORE AP/TRUE AP/OTHER LEFT RADEX SHOULDER COMPLETE MINIMUM 2 VIEWS Nieves Multani APRN.[employer] [address] [place] [address] Xr Imaging Referral ID Status Reason Start Date Expiration Date V isits Requested Visits Authorized [id number] Closed Auto-Generate d Referral 04/17/2023 05/16/2024 1 1 [facility] Reason for Referral Specialty Diagnoses / Procedures Referred By Contac t Referred To Contact Diagnoses Medication refill Nieves Multani APRN.[employer] [address] [place] [address] Referral ID Status Reason Start Date Expiration Date Visits Re quested Visits Authorized [id number] Closed 1 1 Specialty Diagnoses / Procedures Referred By Contac t Referred To Contact Diagnoses Medication refill Yuri Chatterjee PA-C [address] [place] [address] Referral ID Status Reason Start Date Expiration Date Visits Re quested Visits Authorized [id number] Closed 1 1 Specialty Diagnoses / Procedures Referred By Contac t Referred To Contact MR IMAGING Diagnoses Radiculopathy of lumbar region Lumbar radiculopathy Foot pain, bilateral Acute bilateral ankle pain Osteoarthritis of spine with radiculopathy, lumbar region Repeated falls Procedures MRI LUMBAR SPINE WO IVCON MRI SPINAL CANAL LUMBAR W/O CONTRAST MATERIAL Kody Rubin MD [address] [place] [address] Mr Imaging Referral ID Status Reason Start Date Expiration Date Visits Requested Visits Authorized [id number] Pending Review Auto-Generat ed Referral 06/18/2023 07/17/2024 1 1 Specialty Diagnoses / Procedures Referred By Contac t Referred To Contact XR IMAGING Diagnoses Foot pain, bilateral Acute bilateral ankle pain Procedures XR FOOT GENERAL 3V AP/LAT/OBL BILATERAL RADEX FOOT COMPLETE MINIMUM 3 VIEWS Kody Rubin MD [address] [place] [address] Xr Imaging Referral ID Status Reason Start Date Expiration Date V isits Requested Visits Authorized [id number] Closed Auto-Generate d Referral 06/18/2023 07/17/2024 1 1 Specialty Diagnoses / Procedures Referred By Contac t Referred To Contact Hematology Diagnoses Abnormal radionuclide bone scan Procedures CONSULT TO HEMATOLOGY OFFICE/OUTPATIENT [facility] 60-74 MINUTES Kody Rubin MD [address] [place] [address] Referral ID Status Reason Start Date Expiration Date Visits Requested Visits Authorized [id number] Pending Review PCP Requested Referral 06/29/2023 06/28/2024 1 1 Specialty Diagnoses / Procedures Referred By Contac t Referred To Contact Orthopedics Diagnoses T12 compression fracture, initial encounter (HCC) Osteoarthritis of spine with radiculopathy, lumbar region Procedures CONSULT TO ORTHOPAEDICS OFFICE/OUTPATIENT [facility] 60-74 MINUTES Kody Rubin MD [address] [place] [address] Referral ID Status Reason Start Date Expiration Date Visits Requested Visits Authorized [id number] Pending Review PCP Requested Referral 07/14/2023 07/13/2024 1 1 Advance Directives No Advanced Directives Records FoundDocuments on File Type Date Recorded 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 Advance Directive(s) 11/02/2017 11:16 AM Advance Directive(s) 06/09/2016 2:37 PM Advance Directive(s) 04/29/2011 12:00 AM Advance Directive(s) 01/01/2007 12:00 AM Documents on File Type Date Recorded 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 Advance Directive(s) 11/02/2017 11:16 AM Advance Directive(s) 06/09/2016 2:37 PM Advance Directive(s) 04/29/2011 12:00 AM Advance Directive(s) 01/01/2007 12:00 AM Documents on File Type Date Recorded 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 Advance Directive(s) 04/29/2011 Advance Directive(s) 01/01/2007 Documents on File Type Date Recorded 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 Advance Directive(s) 04/29/2011 Advance Directive(s) 01/01/2007 Summary Purpose Family History No Family History Records Found Additional Source Comments Source Comments (unrecognize d section and content) In the event this informatio n is protected by the Federal Confidentiality of Alcohol and Drug Abuse Patient Records regulations: The Federal rules restrict any use of the information to criminally investigate or prosecute any alcohol or drug abuse patient.[facility] the event this information is protected by the Federal Confidentiality of Alcohol and Drug Abuse Patient Records regulations: The Federal rules restrict any use of the information to criminally investigate or prosecute any alcohol or drug abuse patient.[facility] the event this information is protected by the Federal Confidentiality of Alcohol and Drug Abuse Patient Records regulations: The Federal rules restrict any use of the information to criminally investigate or prosecute any alcohol or drug abuse patient.[facility] the event this information is protected by the Federal Confidentiality of Alcohol and Drug Abuse Patient Records regulations: The Federal rules restrict any use of the information to criminally investigate or prosecute any alcohol or drug abuse patient.[facility] the event this information is protected by the Federal Confidentiality of Alcohol and Drug Abuse Patient Records regulations: The Federal rules restrict any use of the information to criminally investigate or prosecute any alcohol or drug abuse patient.[facility] the event this information is protected by the Federal Confidentiality of Alcohol and Drug Abuse Patient Records regulations: The Federal rules restrict any use of the information to criminally investigate or prosecute any alcohol or drug abuse patient.[facility] HospitalIn the event this information is protected by the Federal Confidentiality of Alcohol and Drug Abuse Patient Records regulations: The Federal rules restrict any use of the information to criminally investigate or prosecute any alcohol or drug abuse patient.[facility] HospitalIn the event this information is protected by the Federal Confidentiality of Alcohol and Drug Abuse Patient Records regulations: The Federal rules restrict any use of the information to criminally investigate or prosecute any alcohol or drug abuse patient.[facility] HospitalIn the event this information is protected by the Federal Confidentiality of Alcohol and Drug Abuse Patient Records regulations: The Federal rules restrict any use of the information to criminally investigate or prosecute any alcohol or drug abuse patient.[facility] HospitalIn the event this information is protected by the Federal Confidentiality of Alcohol and Drug Abuse Patient Records regulations: The Federal rules restrict any use of the information to criminally investigate or prosecute any alcohol or drug abuse patient.[facility] HospitalIn the event this information is protected by the Federal Confidentiality of Alcohol and Drug Abuse Patient Records regulations: The Federal rules restrict any use of the information to criminally investigate or prosecute any alcohol or drug abuse patient.[facility] HospitalIn the event this information is protected by the Federal Confidentiality of Alcohol and Drug Abuse Patient Records regulations: The Federal rules restrict any use of the information to criminally investigate or prosecute any alcohol or drug abuse patient.[facility] HospitalIn the event this information is protected by the Federal Confidentiality of Alcohol and Drug Abuse Patient Records regulations: The Federal rules restrict any use of the information to criminally investigate or prosecute any alcohol or drug abuse patient.[facility] HospitalIn the event this information is protected by the Federal Confidentiality of Alcohol and Drug Abuse Patient Records regulations: The Federal rules restrict any use of the information to criminally investigate or prosecute any alcohol or drug abuse patient.[facility] HospitalIn the event this information is protected by the Federal Confidentiality of Alcohol and Drug Abuse Patient Records regulations: The Federal rules restrict any use of the information to criminally investigate or prosecute any alcohol or drug abuse patient.[facility] HospitalIn the event this information is protected by the Federal Confidentiality of Alcohol and Drug Abuse Patient Records regulations: The Federal rules restrict any use of the information to criminally investigate or prosecute any alcohol or drug abuse patient.[facility] HospitalIn the event this information is protected by the Federal Confidentiality of Alcohol and Drug Abuse Patient Records regulations: The Federal rules restrict any use of the information to criminally investigate or prosecute any alcohol or drug abuse patient.[facility] HospitalIn the event this information is protected by the Federal Confidentiality of Alcohol and Drug Abuse Patient Records regulations: The Federal rules restrict any use of the information to criminally investigate or prosecute any alcohol or drug abuse patient.[facility] HospitalIn the event this information is protected by the Federal Confidentiality of Alcohol and Drug Abuse Patient Records regulations: The Federal rules restrict any use of the information to criminally investigate or prosecute any alcohol or drug abuse patient.[facility] HospitalIn the event this information is protected by the Federal Confidentiality of Alcohol and Drug Abuse Patient Records regulations: The Federal rules restrict any use of the information to criminally investigate or prosecute any alcohol or drug abuse patient.[facility] HospitalIn the event this information is protected by the Federal Confidentiality of Alcohol and Drug Abuse Patient Records regulations: The Federal rules restrict any use of the information to criminally investigate or prosecute any alcohol or drug abuse patient.[facility] HospitalIn the event this information is protected by the Federal Confidentiality of Alcohol and Drug Abuse Patient Records regulations: The Federal rules restrict any use of the information to criminally investigate or prosecute any alcohol or drug abuse patient.[facility] HospitalIn the event this information is protected by the Federal Confidentiality of Alcohol and Drug Abuse Patient Records regulations: The Federal rules restrict any use of the information to criminally investigate or prosecute any alcohol or drug abuse patient.[facility] HospitalIn the event this information is protected by the Federal Confidentiality of Alcohol and Drug Abuse Patient Records regulations: The Federal rules restrict any use of the information to criminally investigate or prosecute any alcohol or drug abuse patient.[facility] HospitalIn the event this information is protected by the Federal Confidentiality of Alcohol and Drug Abuse Patient Records regulations: The Federal rules restrict any use of the information to criminally investigate or prosecute any alcohol or drug abuse patient.[facility] HospitalIn the event this information is protected by the Federal Confidentiality of Alcohol and Drug Abuse Patient Records regulations: The Federal rules restrict any use of the information to criminally investigate or prosecute any alcohol or drug abuse patient.[facility] HospitalIn the event this information is protected by the Federal Confidentiality of Alcohol and Drug Abuse Patient Records regulations: The Federal rules restrict any use of the information to criminally investigate or prosecute any alcohol or drug abuse patient.[facility] HospitalIn the event this information is protected by the Federal Confidentiality of Alcohol and Drug Abuse Patient Records regulations: The Federal rules restrict any use of the information to criminally investigate or prosecute any alcohol or drug abuse patient.[facility] HospitalIn the event this information is protected by the Federal Confidentiality of Alcohol and Drug Abuse Patient Records regulations: The Federal rules restrict any use of the information to criminally investigate or prosecute any alcohol or drug abuse patient.[facility] HospitalIn the event this information is protected by the Federal Confidentiality of Alcohol and Drug Abuse Patient Records regulations: The Federal rules restrict any use of the information to criminally investigate or prosecute any alcohol or drug abuse patient.[facility] HospitalIn the event this information is protected by the Federal Confidentiality of Alcohol and Drug Abuse Patient Records regulations: The Federal rules restrict any use of the information to criminally investigate or prosecute any alcohol or drug abuse patient.[facility] HospitalIn the event this information is protected by the Federal Confidentiality of Alcohol and Drug Abuse Patient Records regulations: The Federal rules restrict any use of the information to criminally investigate or prosecute any alcohol or drug abuse patient.[facility] HospitalIn the event this information is protected by the Federal Confidentiality of Alcohol and Drug Abuse Patient Records regulations: The Federal rules restrict any use of the information to criminally investigate or prosecute any alcohol or drug abuse patient.[facility] HospitalIn the event this information is protected by the Federal Confidentiality of Alcohol and Drug Abuse Patient Records regulations: The Federal rules restrict any use of the information to criminally investigate or prosecute any alcohol or drug abuse patient.[facility] HospitalIn the event this information is protected by the Federal Confidentiality of Alcohol and Drug Abuse Patient Records regulations: The Federal rules restrict any use of the information to criminally investigate or prosecute any alcohol or drug abuse patient.[facility] HospitalIn the event this information is protected by the Federal Confidentiality of Alcohol and Drug Abuse Patient Records regulations: The Federal rules restrict any use of the information to criminally investigate or prosecute any alcohol or drug abuse patient.[facility] HospitalIn the event this information is protected by the Federal Confidentiality of Alcohol and Drug Abuse Patient Records regulations: The Federal rules restrict any use of the information to criminally investigate or prosecute any alcohol or drug abuse patient.[facility] HospitalIn the event this information is protected by the Federal Confidentiality of Alcohol and Drug Abuse Patient Records regulations: The Federal rules restrict any use of the information to criminally investigate or prosecute any alcohol or drug abuse patient.[facility] Reason for Visit (unrecogniz ed section and content) Reason Onset Date Comments Refill Request 04/25/2022 Reason Comments requesitng lab orders Reason Comments Refill Request Reason Comments Medicare Wellness Exam Reason Comments Patient Question Reason Comments Results Reason Onset Date Comments Refill Request 10/14/2022 Reason Comments Sore Throat X 5 days Reason Onset Date Comments Refill Request 01/07/2023 Reason Onset Date Comments Refill Request 02/20/2023 Reason Comments Fall Reason Comments left shoulder pain Fell last night Reason Comments Outside CT Reason Comments Hospital Follow Up Reason Comments Hospital F/U Reason Comments Home Health Point of Care Results Reason Comments Speech Therapy HHC Update Reason Comments Pain Reason Comments Results Reason Comments PT/OT Discharge Summary Reason Comments Patient Update Reason Comments Provider Call-Requesting call back Reason Comments Constipation Reason Comments Radiology CT Specialty Diagnoses / Procedures Referred By Berta medina Referred To Contact CT IMAGING Diagnoses Lung nodules Procedures CT CHEST WO IVCON DIAGNOSTIC COMPUTED TOMOGRAPHY THORAX W/O Mirna Bruner MD [address] [place] [address] Ct [facility] [place] [id number] Referral ID Status Reason Start Date Expiration Date V isits Requested Visits Authorized [id number] Closed Auto-Generate d Referral 09/21/2023 08/11/2024 1 1 Reason Comments outside neuro Care Teams (unrecognized sec tion and content) 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 Jointer Operator Relationship Specialty Start Date End Date Kody Rubin MD [address] [place], [place] [id number] PCP - General Family Practice 08/23/21 Veneer Jointer Operator Relationship Specialty Start Date End Date Kody Rubin MD [address] [place] [address] PCP - General Family Practice 08/23/21 Veneer Jointer Operator Relationship Specialty Start Date End Date Kody Rubin MD [address] [place] [address] PCP - General Family Medicine 08/23/21 Veneer Jointer Operator Relationship Specialty Start Date End Date Kody Rubin MD [address] [place] [id number] PCP - General Family Medicine 08/23/21 Veneer Jointer Operator Relationship Specialty Start Date End Date Kody Rubin MD [address] [place] [id number] PCP - General Family Medicine 08/23/21 Veneer Jointer Operator Relationship Specialty Start Date End Date Kody Rubin MD [address] [place] [id number] PCP - General Family Medicine 08/23/21 Veneer Jointer Operator Relationship Specialty Start Date End Date Kody Rubin MD [address] [place] [id number] PCP - General Family Medicine 08/23/21 Veneer Jointer Operator Relationship Specialty Start Date End Date Kody Rubin MD [address] [place] [id number] PCP - General Family Medicine 08/23/21 Veneer Jointer Operator Relationship Specialty Start Date End Date Kody Rubin MD [address] [place] [id number] PCP - General Family Medicine 08/23/21 Veneer Jointer Operator Relationship Specialty Start Date End Date Kody Rubin MD [address] [place] [id number] PCP - General Family Medicine 08/23/21 Veneer Jointer Operator Relationship Specialty Start Date End Date Kody Rubin MD [address] [place] [address] PCP - General Family Medicine 08/23/21 Veneer Jointer Operator Relationship Specialty Start Date End Date Kdoy Rubin MD [address] [place] [address] PCP - General Family Medicine 08/23/21 Veneer Jointer Operator Relationship Specialty Start Date End Date Kody Rubin MD [address] [place] [address] PCP - General Family Medicine 08/23/21 Veneer Jointer Operator Relationship Specialty Start Date End Date Kody Rubin MD [address] [place] [address] PCP - General Family Medicine 08/23/21 Veneer Jointer Operator Relationship Specialty Start Date End Date Kody Rubin MD [address] [place] [address] PCP - General Family Medicine 08/23/21 Veneer Jointer Operator Relationship Specialty Start Date End Date Kody Rubin MD [address] [place] [address] PCP - General Family Medicine 08/23/21 Veneer Jointer Operator Relationship Specialty Start Date End Date Kody Rubin MD [address] [place] [address] PCP - General Family Medicine 08/23/21 Veneer Jointer Operator Relationship Specialty Start Date End Date Kody Rubin MD [address] [place] [address] PCP - General Family Medicine 08/23/21 Veneer Jointer Operator Relationship Specialty Start Date End Date Kody Rubin MD [address] [place] [address] PCP - General Family [facility] 08/23/21 Veneer Jointer Operator Relationship Specialty Start Date End Date Kody Rubin MD [address] [place] [address] PCP - General [facility] 08/23/21 Veneer Jointer Operator Relationship Specialty Start Date End Date Kody Rubin MD [address] [place] [address] PCP - [facility] 08/23/21 Veneer Jointer Operator Relationship Specialty Start Date End Date Kody Rubin MD [address] [place] [address] PCP - [facility] 08/23/21 Veneer Jointer Operator Relationship Specialty Start Date End Date Kody Rubin MD [address] [place] [address] PCP - General [facility] 08/23/21 (unrecognized sect ion and content) No Status Records Found INFORMATION SOURCE (unrecogn ized section and content) FOR RECORDS PERTAINING TO PATIENTS WHO ARE OR HAVE BEEN ENROLLED IN A CHEMICAL DEPENDENCY/SUBSTANCEABUSE PROGRAM, SOME INFORMATION MAY BE OMITTED. This clinical summary was aggregated from multiple sources. Caution should be exercised in using it in the provision of clinical care. This summary normalizes information from multiple sources, and as a consequence, information in this document may materially change the coding, format and clinical context of patient data. In addition, data may be omitted in some cases. CLINICAL DECISIONS SHOULD BE BASED ON THE PRIMARY CLINICAL RECORDS. [facility]. provides no warranty or guarantee of the accuracy or completeness of information in this document.
--- NOTE | 2023-11-17 06:33 | MRI_ITS ---
STUDY: MRI BRAIN WITHOUT CONTRAST REASON FOR EXAM: Male, 83 years old. Mild dementia, stroke eval TECHNIQUE: Standardized multiplanar fat and water weighted pulse sequences were obtained. COMPARISON: CT of the brain April 18, 2023 FINDINGS: Moderate atrophy and advanced periventricular white matter ischemic changes without mass effect or restricted diffusion. Tiny old bilateral lacunar infarcts of the basal ganglia. Normal thalami. There is no extra-axial fluid accumulation. Normal flow voids within the major intracranial circulation suggesting patency by spin echo criteria. Normal sella turcica, pituitary gland, infundibular stalk, optic chiasm and hypothalamus. Normal tectal plate and pineal gland. Normal midbrain, ioana and medulla. Moderate cerebellar atrophy. Normal basal cisterns. Normal bilateral temporal bones. Normal bilateral internal auditory canals. Postsurgical changes of the orbits.. Mild mucosal thickening of the right ethmoid air cells. Normal calvarium and skull base. Normal visualized soft tissue structures. Normal visualized upper cervical spine. MRI/Brain without Contrast IMPRESSION: Moderate cerebral and cerebellar atrophy. Tiny old bilateral lacunar infarcts Advanced periventricular white matter ischemic changes without evidence for acute infarct. Electronically Signed: Piero Rico MD at 21:58 EST ,
== END | disposition home or self-care (01) ==
LOC: MRI 06:26
PROVIDERS: PCP Family Medicine; Referring Provider Psychiatry & Neurology Neurology; Visit Provider Psychiatry & Neurology Neurology
DX: F03.A0 Unspecified dementia, mild, without behavioral disturbance, psychotic disturbance, mood disturbance, and anxiety (principal)
CPT/HCPCS: 70551

== ENCOUNTER → 2023-11-26 | Outpatient (CLI) | payer MEDICARE, SELFPAY ==
--- NOTE | 2023-11-26 11:10 | RAD_ITS ---
STUDY: X-RAY - LUMBOSACRAL SPINE REASON FOR EXAM: Male, 83 years old. Other intervertebral disc degeneration, lumbosacral region TECHNIQUE: 6 view(s) of the lumbosacral spine were obtained. COMPARISON: None FINDINGS: Normal lumbar lordosis. There is a dextroscoliosis of the lumbar spine. There is normal alignment of the vertebrae in the lateral view. There is diffuse demineralization with multi-level endplate spondylosis. There is multi-level degenerative disc disease with multi-level disc space narrowing. Normal bilateral sacral ala, sacroiliac joints, and visualized sacrum. Multiple phleboliths noted within the pelvis. Peripheral calcifications in the abdominal aorta RAD/L/S Spine w Bend Min 6 Vw IMPRESSION: Degenerative changes of the spine, as detailed above. Dextroscoliosis Electronically Signed: Hugo Nieves MD at 16:57 EST ,
== END | disposition home or self-care (01) ==
LOC: RAD 10:59
PROVIDERS: PCP Family Medicine; Referring Provider Anesthesiology Pain Medicine; Visit Provider Anesthesiology Pain Medicine
DX: M51.37 Other intervertebral disc degeneration, lumbosacral region (principal)
CPT/HCPCS: 72114

== ENCOUNTER → 2024-07-29 | Outpatient (CLI) | payer MEDICARE, SELFPAY ==
--- NOTE | 2024-07-29 13:15 | RAD_ITS ---
STUDY: X-RAY - CERVICAL SPINE REASON FOR EXAM: Male, 84 years old. Neck pain. TECHNIQUE: 7 view(s) of the cervical spine were obtained. COMPARISON: CT of the cervical spine dated April 18, 2023 FINDINGS: Marked osteopenia. Normal anterior atlantoaxial articulation. Normal odontoid process. Normal cervical lordosis. Moderate to marked diffuse uncovertebral and facet sclerosis. Intervertebral disc space narrowing diffusely, most marked in the lower cervical spine. Anterior bony neural foraminal encroachment bilaterally most marked at C3-4, C4-5 and C5-6. Right carotid calcification. RAD/Cerv Spine 4 or 5 Views IMPRESSION: Osteopenia with moderate to marked lower cervical spondylosis as described. Electronically Signed: Chai Alvarez MD at 14:08 EDT ,
== END | disposition home or self-care (01) ==
LOC: RAD 13:11
PROVIDERS: PCP Family Medicine; Referring Provider Clinical Nurse Specialist Adult Health; Visit Provider Clinical Nurse Specialist Adult Health
DX: M54.2 Cervicalgia (principal)
CPT/HCPCS: 72050

== ENCOUNTER 2024-10-27 21:30 | Emergency (ER) | payer MEDICARE, SELFPAY ==
[2024-10-27 21:32] VITALS: BP 140/70; PULSE 62; RESP 12; TEMP 36.1; O2SAT 84; BMI 18.0
[2024-10-27 21:38] VITALS: PULSE 59; RESP 12; O2SAT 94
[2024-10-27 21:48] VITALS: O2SAT 100
--- NOTE | 2024-10-27 22:09 | CT_ITS ---
STUDY: CT BRAIN WITHOUT CONTRAST REASON FOR EXAM: Male, 84 years old. fall RADIATION DOSAGE (If Supplied By Facility): CTDIvol = ( 44.99 ) mGy, DLP = ( 897.35 ) mGycm TECHNIQUE: Transaxial CT imaging of the brain was performed without administration of intravenous contrast material. Individualized dose optimization techniques were used for this CT. COMPARISON: 04/18/2023 FINDINGS: Normal soft tissue structures. Normal calvarium. There is mild cerebral atrophy with widening of the extra-axial spaces and ventricular dilatation. There are areas of decreased attenuation within the white matter tracts of the supratentorial brain, consistent with microvascular disease changes. 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 Normal brainstem. There is mild cerebellar atrophy. There is no intracranial hemorrhage. There are no findings of an acute ischemic infarction. Normal visualized paranasal sinuses. CT/Brain/Head without Contrast IMPRESSION: Chronic involutional changes of the brain. No change or acute abnormality. Electronically Signed: Ham Wilson MD at 22:55 EST ,
--- NOTE | 2024-10-27 22:20 | ED.RN ---
Patient's O2 was 84% on RA. 3L NC applied
--- NOTE | 2024-10-27 22:32 | CT_ITS ---
INDICATION: pain EXAMINATION: CT CERVICAL SPINE - CT Spine Cervical W/O Contrast Injection TECHNIQUE: Helically acquired images were obtained of the cervical spine. 2D reformatted images were reviewed. A radiation dose optimization technique was used for this scan. IV Contrast dosage and agent: None. COMPARISON: 04/18/2023 FINDINGS: VERTEBRAE: No acute fracture of the cervical spine. Anatomic alignment. DISCS and SPINAL CANAL: Stable degenerative changes with multilevel facet joint hypertrophy. No critical stenosis. NECK SOFT TISSUES: No prevertebral soft tissue swelling. LUNG APICES: No acute pulmonary findings. Stable calcified pleural disease. CT/Spine Cervical without Contras IMPRESSION: Stable diffuse degenerative changes. No acute fracture of the cervical spine. Electronically Signed: Moe Schmitz MD at 23:15 EST ,
--- NOTE | 2024-10-27 22:45 | RAD_ITS ---
INDICATION: Trauma, fall, left hip pain EXAMINATION/TECHNIQUE: X-RAY - XR Hip Unilateral with Pelvis when performed; 2-3 Views COMPARISON: Prior study dated: 04/18/2023 FINDINGS: PELVIC BONES: No displaced fracture, destructive or sclerotic lesions. Note that overlapping bowel shadows may however obscure fine detail. Sacroiliac joints are unremarkable. No widening of the pubic symphysis. HIPS: Hip joint space narrowing bilaterally. Angulated fracture at the left femoral neck, left femoral head in the acetabulum. SOFT TISSUES: Extensive vascular calcifications. RAD/HIP, UNI W/ Pelvis 2-3 Views IMPRESSION: Angulated fracture left femoral neck. Electronically Signed: Moe Schmitz MD at 23:45 EST ,
--- NOTE | 2024-10-27 22:45 | RAD_ITS ---
INDICATION: Trauma, fall EXAMINATION/TECHNIQUE: X-RAY - portable supine AP chest x-ray COMPARISON: 10/02/2023 FINDINGS: LINES/DEVICES: None. LUNGS: Hyperinflation. Extensive fibrotic changes in the right midlung field, more extensive than on prior chest x-ray. Possible 2.3 cm nodular lesion right midlung field. MEDIASTINUM AND CARDIOVASCULAR STRUCTURES: Cardiac silhouette stable within normal limits. BONES AND SOFT TISSUES: Displaced fractures right sixth and seventh ribs posterior laterally. RAD/Chest 1 View (Portable) IMPRESSION: Extensive fibrotic changes right midlung field with possible 2.3 cm nodular lesion. Recommend further evaluation by chest CT. Displaced fractures right sixth and seventh ribs. Electronically Signed: Moe Schmitz MD at 23:42 EST ,
--- NOTE | 2024-10-27 22:47 | EKG12_ITS ---
Test Reason : FALL Blood Pressure : */* mmHG Vent. Rate : 61 BPM Atrial Rate : 61 BPM P-R Int : 214 ms QRS Dur : 82 ms QT Int : 446 ms P-R-T Axes : 84 -1 70 degrees QTcB Int : 448 ms Sinus rhythm with 1st degree A-V block Otherwise normal ECG Confirmed by KENYATTA SINGH, LISA ([id number]), research editor LISANDRO FARRELL ([id number]) on 11/02/2024 1:28:28 P M Referred By: Min Ortega Confirmed By: LSIA YOU MD
--- NOTE | 2024-10-27 22:57 | CT_ITS ---
INDICATION: Trauma, fall, injury EXAMINATION: CT CHEST WITHOUT CONTRAST - CT Chest W/O Contrast Injection TECHNIQUE: Helically acquired images were obtained of the chest. A radiation dose optimization technique was used for this scan. IV Contrast dosage and agent: None. COMPARISON: 07/02/2023 FINDINGS: LUNGS, PLEURA AND LARGE AIRWAYS: Stable right upper and middle lobe fibrosis with volume loss. Right middle lobe nodule decreased from 9 x 13 mm to current 6 x 9 mm. Stable 10 mm lingular nodule laterally. No consolidations or mass lesions. No pleural effusion or pneumothorax. THYROID: No thyroid lesions. HEART AND PERICARDIUM: Heart size is normal. No pericardial effusion. Coronary artery calcifications noted. VESSELS: Stable 4.1 cm aneurysmal dilatation ascending thoracic aorta. MEDIASTINUM AND RODY: No mediastinal or hilar adenopathy. Esophagus is unremarkable. No hiatal hernia. UPPER ABDOMEN: No acute pathology. BONES: Progression of T12 compression fracture since prior study. Multiple right rib fractures with evidence of healing, greatest displacement at the levels of seventh and eighth ribs laterally. Multiple left rib fractures with evidence of healing, no significant displacement. CT/Chest without Contrast IMPRESSION: Multiple, bilateral rib fractures with greatest displacement at the right seventh and eighth ribs laterally. Evidence of healing callus formation associated with most of the rib fractures. Progression of T12 compression fracture. Significant regression of right middle lobe nodule with stable lingular nodule measuring up to 10 mm. Further 3 month follow-up recommended. 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 Electronically Signed: Moe Schmitz MD at 0:00 EST ,
[2024-10-27 23:00] LABS: Absolute Lymphocyte Count 2.65 X10^3/uL (0.83-4.51); Absolute Neutrophil Count 1.9 X10^3/uL (2.0-7.7); Basophil# 0.03 X10^3/uL; Basophil% 0.5 % (0-1); Eosinophil# 0.25 X10^3/uL; Eosinophils% 4.5 % (0-5); Hemoglobin 10.8 g/dL (13.0-16.5); Lymphocyte # 2.65 X10^3/ul (0.83-4.51); Lymphocyte % 47.6 % (19-41); Mean Corp Hgb Conc 31.8 g/dL (32-36); Mean Corpuscular Hgb 32.1 pg (27.0-32.0); Mean Corpuscular Volume 101.2 fL (80-94); Mean Platelet Vol. 12.3 fl (6.2-12.0); Monocyte# 0.75 X10^3/uL; Monocyte% 13.5 % (0-10); NRBC Flagged by Analyzer 0 % (0-5); Neutrophil # 1.87 X10^3/uL (2.7-7.7); Neutrophil % 33.5 % (47-70); Platelet Count 152 K/mm3 (150-450); RBC Distribution Width CV 14.7 % (11.6-14.6); RBC Distribution Width SD 54.9 fl (35.1-43.9); Red Blood Count 3.36 M/mm3 (4.6-6.2); White Blood Count 5.6 K/mm3 (4.4-11.0)
[2024-10-27 23:07] LABS: International Normalized Ratio 1.5; Partial Thromboplast Time 28.7 Seconds (24.1-36.2); Prothrombin Time (Protime)PT. 18.2 SECONDS (11.7-14.9)
[2024-10-27 23:12] LABS: Anion Gap 2 (5-15); BUN 37 mg/dL (7-18); BUN/Creat Ratio 23.7 RATIO (10-20); Calcium,Total 9.5 mg/dL (8.5-10.1); Chloride 107 mmol/L (98-107); Creatinine, Serum 1.56 mg/dL (0.70-1.30); EST Glomerular Filtration Rate 45 mL/min (>60); Est Glom Filt Rate - Afr Amer 55 mL/min (>60); Estimated Creatinine Clearance 26.34 ml/min; Glucose 90 mg/dL (74-106); Potassium 4.8 mmol/L (3.5-5.1); Sodium Level 142 mmol/L (136-145)
[2024-10-27 23:30] VITALS: BP 141/74; PULSE 60; RESP 18; O2SAT 100; O2SAT 98
[2024-10-27 23:32] LABS: Bacteria 0 SEEN /hpf (None Seen); Mucous, Urine 0 SEEN /hpf (<or=2+); Red Blood Cells-Urine 0 SEEN /hpf (0-5); Squamous Epithelial Cells - UA 0 SEEN /hpf (0-5); White Blood Cells 0 SEEN /hpf (0-5)
[2024-10-27 23:33] LABS: Color, Urine Yellow (Yellow); Glucose, Dipstick Normal (Normal); Ketone-Dipstick Negative (Negative); Leukocyte Esterase-Dipstick Negative /ul (Negative); Nitrite-Dipstick Negative (Negative); Occult Blood-Urine Negative /ul (Negative); Protein-Dipstick Negative (Negative); Urine Bilirubin Dipstick Negative (Negative); Urine Clarity Clear (Clear); Urine Urobilinogen Normal (Normal)
--- NOTE | 2024-10-28 00:15 | ED.RN ---
Pt has pain patch on left upper shoulder that was placed 10/26/24.
[2024-10-28 01:00] VITALS: BP 137/78; PULSE 64; RESP 17; O2SAT 98
[2024-10-28] MEDS: Lidocaine Jelly 2% 20 ML Syringe (URO-JET) 1 APPLIC TOPICAL (01:15)
[2024-10-28 01:58] VITALS: BP 121/73; PULSE 64; RESP 13; TEMP 36.7; O2SAT 97
--- NOTE | 2024-10-28 02:01 | EX.ED.DYSGE1 ---
HPI History of Present Illness Chief Complaint: Fall Informant: patient, EMS and SNF Narrative Narrative: Patient is an 84-year-old male from the [facility] with history of dementia hypertension hypothyroidism BPH and chronic kidney disease. [facility] sent him in for an unwitnessed fall this evening and he was noted to have a abrasion and hematoma to the back of his head as well as a skin tear to his right forearm. He is not on a blood thinner but with concern for underlying trauma from the fall he was sent to the hospital for evaluation. Family reports he has been falling multiple times over the past few weeks but has not been evaluated for those as he did not strike his head. The patient does not remember how he fell but this time does not complain of any pain [facility] Medical History BPH (benign prostatic hyperplasia) Chronic anemia CKD (chronic kidney disease), stage III Former tobacco use Dementia Hypothyroidism Hypertension Frequent falls Lung nodule seen on imaging study Sacral fracture, closed Home Medications ?Medication ?Instructions ?Recorded ?Last Taken ?Type baclofen 10 mg tablet 5 mg (1/2 x 10 mg) PO TID PRN 05/12/23 Unknown Rx Muscle Spasm 30 days #90 tabs gabapentin 300 mg capsule 300 mg PO TID 30 days #90 caps 05/12/23 Unknown Rx losartan 100 mg tablet 100 mg PO DAILY 30 days #30 tabs 05/12/23 Unknown Rx tramadol 50 mg tablet 50 mg PO Q8H PRN pain 07/15/23 Unknown History acetaminophen 325 mg tablet 650 mg PO Q4H PRN fever 10/01/23 Unknown History (Tylenol) finasteride 1 mg tablet 1 mg PO DAILY 10/01/23 Unknown History melatonin 5 mg capsule 5 mg PO QHS PRN insomnia 10/01/23 Unknown History multivitamin (Multiple Vitamins 1 tab PO DAILY 10/01/23 Unknown History tablet) donepezil 10 mg tablet 10 mg PO QHS #30 tabs 02/01/24 Unknown Rx memantine 28 mg capsule 28 mg PO DAILY 02/01/24 Unknown History sprinkle,extended release 24hr bisacodyl 10 mg rectal suppository 10 mg [place] DAILY PRN constipation 10/28/24 Unknown History buprenorphine 10 mcg/hour weekly 1 patch transdermal QWEEK 10/28/24 Unknown History transdermal patch (Butrans) docusate sodium 100 mg capsule 100 mg PO BID PRN constipation 10/28/24 Unknown History (Colace) duloxetine 60 mg capsule,delayed 60 mg PO DAILY 10/28/24 Unknown History release (Cymbalta) loperamide 2 mg tablet 2 mg PO Q4H PRN loose stool 10/28/24 Unknown History magnesium hydroxide 400 mg/5 mL 30 ml PO DAILY PRN constipation 10/28/24 Unknown History oral suspension (Milk of Magnesia) Allergy/AdvReac Type Severity Reaction Status Date / Time No Known Allergies Allergy Verified 02/01/24 08:36 Family History Other Dementia Surgical History History of appendectomy History of splenectomy Social History (Updated 10/27/24 @ 23:[address] Antoinette Capellan MD) household members: none housing: [facility] Smoking Status: Former smoker alcohol intake: never substance use type: does not use ROS ROS ED ROS Narrative Please no review of systems may be unreliable as patient has dementia Constitutional Constitutional ED: Denies chills or fever(s) Eyes Eyes: Denies change in vision ENT ENT ED: Denies sore throat Cardiovascular Cardiovascular: Reports other Details: Negative syncope ; Denies chest pain Respiratory/Chest Respiratory/Chest: Denies cough or dyspnea Gastrointestinal Gastrointestinal: Denies abdominal pain, diarrhea, nausea or vomiting Genitourinary Genitourinary ED: Denies dysuria Musculoskeletal Musculoskeletal: Reports neck pain and other Details: Patient does endorse neck pain but states this is chronic in nature ; Denies back pain Integumentary Reports Abrasions Neurologic Neurologic: Denies headache(s) Hematologic/Lymphatic Hematologic/Lymphatic: Denies easy bleeding or easy bruising EXAM Physical Exam Const Vital Signs: 10/27/24 21:32 10/27/24 21:38 10/27/24 21:48 Temperature 96.9 F L Temperature Source Temporal Pulse Rate 62 59 L Respiratory Rate 12 12 Respiratory Effort Normal Respiratory Depth Normal Respiratory Pattern Normal Blood Pressure 140/70 H Blood Pressure Mean 93 Pulse Ox 84 94 100 Oxygen Delivery Method Room Air Nasal Cannula Nasal Cannula Oxygen Flow Rate (L/min) 4 3 10/27/24 23:30 10/27/24 23:30 10/28/24 01:00 Temperature Temperature Source Pulse Rate 60 64 Respiratory Rate 18 17 Respiratory Effort Respiratory Depth Respiratory Pattern Blood Pressure 141/74 H 141/74 H 137/78 H Blood Pressure Mean 96 96 97 Pulse Ox 100 98 98 Oxygen Delivery Method Nasal Cannula Nasal Cannula Nasal Cannula Oxygen Flow Rate (L/min) 3 3 3 10/28/24 01:58 Temperature 98.1 F Temperature Source Pulse Rate 64 Respiratory Rate 13 Respiratory Effort Respiratory Depth Respiratory Pattern Blood Pressure 121/73 H Blood Pressure Mean 89 Pulse Ox 97 Oxygen Delivery Method Oxygen Flow Rate (L/min) Positive well nourished and well developed General Appearance ED: well developed HEENT HEENT Narrative: Patient has a 2 x 2 cm hematoma to the occipital portion of his scalp with a superficial abrasion in the center that is not actively bleeding Otherwise no signs of depressed or basilar skull fracture Eyes PERRL and EOMs intact bilaterally Eyes Narrative: No hyphema noted General Eye ED: Negative for scleral icterus Neck supple Neck Narrative: No bony deformity or step-off of the cervical spine. Patient does endorse chronic neck pain and family states he is currently being worked up for this. Patient is able to move his neck in all directions without difficulty Chest Wall Chest Narrative: No pain on palpation of the chest wall no obvious crepitance noted Resp normal respiratory effort and clear to auscultation bilaterally Resp Narrative: Breath sounds are diminished throughout but overall clear to auscultation Patient does not have nasal flaring retractions tachypnea or accessory muscle use Cardio regular rate and regular rhythm GI non-tender, non-distended and no masses GI Narrative: Soft nontender nondistended with hypoactive bowel sounds no voluntary guarding or rigidity or pulsatile mass Auscultation: hypoactive bowel sounds Palpation: soft Back/Spine Back/Spine Narrative: No bony deformity or step-off of the thoracic or lumbar spine no midline tenderness to palpation Extremity Extremity Narrative: Bilateral upper and lower extremities are neurovascularly intact. Patient is able to lift both arms without difficulty and can flex and extend the elbows without difficulty. There is a skin tear to the volar portion of the right mid forearm that has been closed with Steri-Strips and is not actively bleeding or showing signs of infection The pelvis is stable but there is slight shortening and slight external rotation of the left leg compared to right. However patient denies any pain on palpation of the pelvis or inguinal region All compartments are soft and compressible going against compartment syndrome Neuro CN's II-XII intact bilaterally and no sensory deficits noted Neuro Narrative: Patient is awake and alert and at baseline mental status No focal neurologic deficit noted Sensorium / Orientation: alert Psych mental status grossly normal Skin Skin Narrative: Hematoma to the occipital portion of the scalp as documented above along with skin tear to the right forearm MDM MDM MDM Narrative Medical decision making narrative: Patient arrived to the ER hypoxic and according to the chart does not have a past medical history of lung disease or need for supplemental oxygen. He is not showing any increased work of breathing and denies chest pain but based on his fall and hypoxia there is concern for multiple rib fractures and/or pneumothorax or hemothorax. Therefore chest x-ray will be obtained. In order to rule out skull fracture versus traumatic subarachnoid or subdural hemorrhage as well as a potential cervical compression fracture or spondylolisthesis a head and cervical spine CT were ordered. Even with the patient does not endorse pain of the pelvis as the left leg is slightly shortened and rotated a pelvis x-ray will be obtained to check for potential femoral neck or pubic rami fracture. The patient's head CT revealed no signs of skull fracture or brain bleed and the cervical spine CT revealed chronic changes out acute fracture. Chest x-ray showed multiple rib fractures without obvious pneumothorax but based on his fall the multiple fractures and hypoxia there was concern that there may be a missed pulmonary contusion or pneumothorax so a CT was added. CT showed bilateral rib fractures that have various stages of healing which would correlate with the fact family states he has fallen multiple times over the past few weeks and that these changes are most likely related to those falls and that this evening. The pelvis x-ray did confirm a left femoral neck fracture. Based on the patient's multiple rib fractures and the fact he is a DNR [facility] arrest he is technically a trauma and is not suitable for care at our facility. Family request transfer to [facility]. They were contacted and they do agree to accept the patient for further care. History & Record Review Discussion w/independent historian: Family Lab Data Attestation: I reviewed the patient's lab results. Labs: Laboratory Results - last 24 hr 10/27/24 10/27/24 21:26 23:23 WBC 5.6 RBC 3.36 L Hgb 10.8 L Hct 34.0 L MCV 101.2 H MCH 32.1 H MCHC 31.8 L RDW Std Deviation 54.9 H RDW Coeff of [place] 14.7 H Plt Count 152 MPV 12.3 H Immature Gran % (Auto) 0.400 Neut % (Auto) 33.5 L Lymph % (Auto) 47.6 H [place] % (Auto) 13.5 H Eos % (Auto) 4.5 Baso % (Auto) 0.5 Absolute Neuts (auto) 1.9 L Absolute Lymphs (auto) 2.65 Nucleated RBC % 0 PT 18.2 H INR 1.5 APTT 28.7 Sodium 142 Potassium 4.8 Chloride 107 Carbon Dioxide 33.0 H Anion Gap 2 L BUN 37 H Creatinine 1.56 H Estim Creat Clear Calc 26.34 Est GFR (MDRD) Af Amer 55 L Est GFR (MDRD) Non-Af 45 L BUN/Creatinine Ratio 23.7 H Glucose 90 Calcium 9.5 Urine Color Yellow Urine Clarity Clear Urine pH 6.0 Ur Specific [place] 1.020 Urine Protein Negative Urine Glucose (UA) Normal Urine Ketones Negative Urine Occult Blood Negative Urine Nitrite Negative Urine Bilirubin Negative Urine Urobilinogen Normal Ur Leukocyte Esterase Negative Urine RBC 0 SEEN Urine WBC 0 SEEN Ur Squamous Epith Cells 0 SEEN Urine Bacteria 0 SEEN Urine Mucus 0 SEEN Radiography Diagnostic Testing: Clinical Impression(s) from Imaging Studies Brain CT 10/27/24 22:09 IMPRESSION: Chronic involutional changes of the brain. No change or acute abnormality. Electronically Signed: Ham Wilson MD at 22:55 EST , Cervical Spine CT 10/27/24 22:32 IMPRESSION: Stable diffuse degenerative changes. No acute fracture of the cervical spine. Electronically Signed: Moe Schmitz MD at 23:15 EST , Chest X-Ray 10/27/24 22:45 IMPRESSION: Extensive fibrotic changes right midlung field with possible 2.3 cm nodular lesion. Recommend further evaluation by chest CT. Displaced fractures right sixth and seventh ribs. Electronically Signed: Moe Schmitz MD at 23:42 EST Reading Location ID and State: [facility] / [place] Tel , Service support , Hip/Pelvis X-Ray 10/27/24 22:45 IMPRESSION: Angulated fracture left femoral neck. Electronically Signed: Moe Schmitz MD at 23:45 EST Reading Location ID and State: [facility] / [place] Tel , Service support , Chest CT 10/27/24 22:57 IMPRESSION: Multiple, bilateral rib fractures with greatest displacement at the right seventh and eighth ribs laterally. Evidence of healing callus formation associated with most of the rib fractures. Progression of T12 compression fracture. Significant regression of right middle lobe nodule with stable lingular nodule measuring up to 10 mm. Further 3 month follow-up recommended. 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 Electronically Signed: Moe Schmitz MD at 0:00 EST , 1 view chest x-ray as interpreted by the emergency medicine physician reveals displaced right sixth seventh and eighth rib fractures without obvious pneumothorax 1 view pelvis x-ray as interpreted by the emergency medicine physician reveals a left femoral neck fracture Management Discussion w/another healthcare provider: Occupational Therapy Teacher Discharge Plan Triage Chief Complaint: Fall ED Provider: Min Ortega Dx/Rx/DC Orders Clinical Impression: Hypertension, Fracture of femoral neck, left, closed, Multiple fractures of ribs, Hypoxia, Dementia, Closed head injury Prescriptions: No Action melatonin 5 mg capsule 5 mg PO QHS PRN (Reason: insomnia) Rx Instructions: Give 1 tab by mouth as needed at bedtime for insomnia may have 2 tablets if needed multivitamin [Multiple Vitamins] Tablet 1 tab PO DAILY acetaminophen [Tylenol] 325 mg tablet 650 mg PO Q4H PRN (Reason: fever) finasteride 1 mg tablet 1 mg PO DAILY donepezil 10 mg tablet 10 mg PO QHS Qty: 30 4RF memantine 28 mg capsule,sprinkle,ER 24hr 28 mg PO DAILY Rx Instructions: Week #4 and thereafter: 28 mg orally daily baclofen 10 mg Tablet 5 mg PO TID PRN (Reason: Muscle Spasm) 30 Days Qty: 90 0RF gabapentin 300 mg Capsule 300 mg PO TID 30 Days Qty: 90 0RF losartan 100 mg Tablet 100 mg PO DAILY 30 Days Qty: 30 0RF bisacodyl 10 mg suppository 10 mg MN DAILY PRN (Reason: constipation) buprenorphine [Butrans] 10 mcg/hour patch weekly 1 patch transdermal QWEEK docusate sodium [Colace] 100 mg capsule 100 mg PO BID PRN (Reason: constipation) duloxetine [Cymbalta] 60 mg capsule,delayed release(DR/EC) 60 mg PO DAILY loperamide 2 mg tablet 2 mg PO Q4H PRN (Reason: loose stool) magnesium hydroxide [Milk of Magnesia] 400 mg/5 mL suspension 30 ml PO DAILY PRN (Reason: constipation) tramadol 50 mg tablet 50 mg PO Q8H PRN (Reason: pain) Primary Care Provider: Piero Ngo Referrals: Piero Ngo MD [Primary Care Provider] - Print Language: Albanian Disposition Disposition: Acute Care Hospital Discharge Location: [facility] Discharge Date/Time: 10/28/24 02:30
[2024-10-28] MEDS: Ondansetron 4 MG/2 ML Vial IV (02:14)
[2024-10-28] MEDS: Morphine 4 MG/ML Syringe IV (02:14)
== END 2024-10-28 02:30 | disposition short-term general hospital (02) ==
PROVIDERS: Emergency Provider Emergency Medicine; PCP Family Medicine; Referring Provider Emergency Medicine; Visit Provider Emergency Medicine
DX: S72.092A Other fracture of head and neck of left femur, initial encounter for closed fracture (principal); F03.90 Unspecified dementia, unspecified severity, without behavioral disturbance, psychotic disturbance, mood disturbance, and anxiety; N18.30 Chronic kidney disease, stage 3 unspecified; S22.43XA Multiple fractures of ribs, bilateral, initial encounter for closed fracture; S00.03XA Contusion of scalp, initial encounter; S00.01XA Abrasion of scalp, initial encounter; W19.XXXA Unspecified fall, initial encounter; I12.9 Hypertensive chronic kidney disease with stage 1 through stage 4 chronic kidney disease, or unspecified chronic kidney disease; R09.02 Hypoxemia; R29.6 Repeated falls; Z66 Do not resuscitate; Z79.899 Other long term (current) drug therapy; Z87.891 Personal history of nicotine dependence
CPT/HCPCS: 70450; 71045; 71250; 72125; 73502; 80048; 81001; 85025; 85610; 85730; 93005; 96374; 96375; 99285; A4216; J2405

== ENCOUNTER → 2024-12-26 | Outpatient (CLI) | payer MEDICARE, SELFPAY ==
--- NOTE | 2024-12-26 07:45 | MRI_ITS ---
PROCEDURE: MRI lumbar spine without IV contrast REASON FOR EXAM: Pain TECHNIQUE: Multisequence multiplanar MR images of the lumbar spine were obtained without the administration of intravenous contrast. COMPARISON: 07/11/2023 FINDINGS: Chronic bilateral sacral insufficiency fractures with bone marrow edema, similar to prior. 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 Mild retrolisthesis of L1-L2, L2-L3 and L3-L4. Dextroscoliosis. Severe chronic compression fracture deformity of T12. Conus medullaris is within normal limits and terminates at L1. Peripelvic cysts. Paraspinal muscle atrophy. L1-2: Posterior disc osteophyte complex. Bilateral facet and uncovertebral arthrosis. Mild spinal stenosis. Narrowing of the left lateral recess. Moderate/severe left and moderate right foraminal narrowing. L2-3: Posterior disc osteophyte complex. Mild bilateral facet arthrosis and ligamentum flavum hypertrophy. Mild/moderate spinal stenosis. Moderate/severe bilateral foraminal narrowing. L3-4: Posterior disc osteophyte complex. Moderate bilateral facet arthrosis and ligamentum flavum hypertrophy. Moderate spinal stenosis. Moderate/severe bilateral foraminal narrowing. L4-5: Posterior disc osteophyte complex. Severe bilateral facet arthrosis. Ligamentum flavum hypertrophy. Mild/moderate spinal stenosis. Moderate/severe left and moderate right foraminal narrowing. L5-S1: Grade 1 anterolisthesis with uncovering of the posterior disc. Mild posterior disc bulge. Severe bilateral facet arthrosis and ligamentum flavum hypertrophy. Moderate spinal stenosis with narrowing of the right lateral recess. Moderate bilateral foraminal narrowing. MRI/Spine Lumbar (Routine) IMPRESSION: 1. Acquired multilevel spinal stenosis, greatest at L3-L4 categorized as modera te. 2. Acquired mild to moderate/severe multilevel foraminal narrowing. See level by level comments above. 3. Multilevel wendi and retrolisthesis as described above. 4. Chronic compression fracture of T12. Chronic bilateral sacral insufficiency fractures with mild bone marrow edema. Reading Location: [facility]
--- NOTE | 2024-12-26 12:15 | MRI_ITS ---
PROCEDURE: SPINE CERVICAL (ROUTINE) REASON FOR EXAM: Neck pain. TECHNIQUE: Noncontrast cervical spine MRI. COMPARISON: CT cervical spine from 10/27/2024. FINDINGS: Cervical vertebral bodies maintain a normal height. There is levoscoliosis of the cervical spine. There is diminished signal intensity involving the discs throughout the cervical spine related to degenerative disc disease. Multilevel disc space narrowing with endplate spurring is present which is mostly on a severe basis. There is mild retrolisthesis of C4-C5. No acute fracture or subluxation is identified. Cervical spinal cord demonstrates a normal signal intensity and morphology. Cerebellar tonsils are within normal range. Individual levels: C2-3: Disc osteophyte complex results in flattening of the ventral thecal sac with mild central canal stenosis. Facet/uncovertebral changes are identified with severe left neural foraminal narrowing. Right neural foramina is patent. C3-4: Mild disc osteophyte complex results in mild flattening of the ventral thecal sac with no significant central canal stenosis. Facet/uncovertebral changes are present with mild bilateral neural foraminal narrowing. C4-5: Mild retrolisthesis with disc osteophyte complex results in flattening of the ventral thecal sac with moderate central canal stenosis. Facet/uncovertebral changes are present with mild bilateral neural foraminal narrowing. C5-6: Disc osteophyte complex results in flattening of the ventral thecal sac with moderate central canal stenosis. Facet/uncovertebral changes are present with moderate to severe right and moderate left neural foraminal narrowing. C6-7: Disc osteophyte complex results in flattening of the ventral thecal sac with moderate central canal stenosis. Facet/uncovertebral changes are present with moderate bilateral neural foraminal narrowing. C7-T1: Mild anterolisthesis with disc osteophyte complex results in mild central canal stenosis. Facet/uncovertebral changes are present with moderate left and [id number] right neural foraminal narrowing. MRI/Spine Cervical (Routine) IMPRESSION: 1. Multilevel advanced degenerative disc disease and spondylosis with moderate central canal stenosis from C4-C7 and mild central canal stenosis at C2-C3 and C7-T1. Multilevel varying degrees of neural forami nal narrowing are identified which are greatest at C5-C6 and C6-C7 as above. 2. No abnormal cord signal. Reading Location: [facility]
== END | disposition home or self-care (01) ==
PROVIDERS: PCP Family Medicine; Referring Provider Clinical Nurse Specialist Adult Health; Visit Provider Clinical Nurse Specialist Adult Health
DX: M50.30 Other cervical disc degeneration, unspecified cervical region (principal); M51.379 Other intervertebral disc degeneration, lumbosacral region without mention of lumbar back pain or lower extremity pain
CPT/HCPCS: 72141; 72148

== ENCOUNTER 2025-06-05 15:45 | Inpatient (IN) | payer MEDICARE, SELFPAY ==
[2025-06-05 15:47] VITALS: BP 196/99; PULSE 85; RESP 18; TEMP 37.1; O2SAT 87; O2SAT 94; BMI 16.8
--- NOTE | 2025-06-05 16:05 | CT_ITS ---
PROCEDURE: BRAIN/HEAD WITHOUT CONTRAST 06/05/2025 REASON FOR EXAM: FALL. CONFUSED. TECHNIQUE: BRAIN/HEAD WITHOUT CONTRAST Coronal and Sagittal reconstruction series were provided. One or more dose reduction techniques were used (e.g., Automated exposure control, adjustment of the mA and/or kV according to patient size, use of iterative reconstruction technique. RADIATION DOSE SUMMARY: DLP: 796 mGycm COMPARISON: 10/27/2024 FINDINGS: There is no acute infarct, intracranial hemorrhage, or mass effect. There is no significant midline shift. 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 Enlarged ventricles likely ex vacuo dilatation from parenchymal volume loss although mild hydrocephalus not excluded. There is moderate chronic microvascular ischemic changes and moderate parenchymal volume loss. No acute, depressed calvarial fractures. No large scalp hematomas. Bilateral lens surgery. CT/Brain/Head without Contrast IMPRESSION: No acute intracranial process. Reading Location: [id number]
--- NOTE | 2025-06-05 16:05 | EKG12_ITS ---
Test Reason : SOB Blood Pressure : */* mmHG Vent. Rate : 82 BPM Atrial Rate : 82 BPM P-R Int : 208 ms QRS Dur : 66 ms QT Int : 380 ms P-R-T Axes : 41 -64 9 degrees QTcB Int : 443 ms Sinus rhythm with Premature supraventricular complexes Left axis deviation Nonspecific ST and T wave abnormality Abnormal ECG Confirmed by Andrez Meyer ([id number]), photographic editor JOAN POPE ([id number]) on 06/06/2025 1:31:30 PM Referred By: GRIS/COLEMAN Confirmed By: Andrez Meyer
--- NOTE | 2025-06-05 16:07 | ED.VIS.FALL ---
HPI HPI - Fall History of Present Illness Chief Complaint: Fall Informant: patient, EMS and other (Information from the extended care facility.) Occured/Mechanism Occurred: Yesterday Mechanism/Context: Yes same level fall Pain/Injury Pain Location: none Narrative Narrative: 85-year-old male extensive past medical history of CKD and dementia. He is comfort care wrist. Reportedly fell at [facility] yesterday did not have complaints so was not sent in for evaluation. Reportedly today has had a decreased mental status because he is normally relatively independent. He was leaning to his right he is having incontinence pulse ox was 82%. Patient himself denies any pain but he is confused. He does not know the month or the year. Prior similar symptoms: No Recent Illness/Hospitalization: No PFSH PFSH Medical History Multiple fractures of ribs, bilateral, subsequent encounter for fracture with routine healing Personal history of malignant neoplasm of bone Wedge compression fracture of t11-T12 vertebra, sequela Dysphagia Radiculopathy Other cervical disc degeneration, mid-cervical region, unspecified level BPH (benign prostatic hyperplasia) Chronic anemia CKD (chronic kidney disease), stage III Former tobacco use Hypothyroidism Dementia Hypertension Frequent falls Lung nodule seen on imaging study Sacral fracture, closed Home Medications Medication Instructions Recorded Last Taken Type acetaminophen 325 mg tablet 650 mg PO Q4H PRN fever 10/01/23 Unknown History (Tylenol) finasteride 1 mg tablet 1 mg PO DAILY 10/01/23 Unknown History multivitamin (Multiple Vitamins 1 tab PO DAILY 10/01/23 Unknown History tablet) donepezil 10 mg tablet 10 mg PO QHS #30 tabs 02/01/24 Unknown Rx bisacodyl 10 mg rectal suppository 10 mg IA DAILY PRN constipation 10/28/24 Unknown History docusate sodium 100 mg capsule 100 mg PO BID PRN constipation 10/28/24 Unknown History (Colace) duloxetine 60 mg capsule,delayed 60 mg PO DAILY 10/28/24 Unknown History release (Cymbalta) loperamide 2 mg tablet 2 mg PO Q4H PRN loose stool 10/28/24 Unknown History magnesium hydroxide 400 mg/5 mL 30 ml PO DAILY PRN constipation 10/28/24 Unknown History oral suspension (Milk of Magnesia) acetaminophen 500 mg capsule 1,000 mg PO Q8H PRN fever or pain 06/05/25 Unknown History gabapentin 300 mg capsule 300 mg PO Q12H 06/05/25 Unknown History hydrocortisone 2.5 % topical cream 1 applic topical BID PRN skin 06/05/25 Unknown History irritation ipratropium bromide 21 mcg (0.03 2 spray intranasal BID 06/05/25 Unknown History %) nasal spray menthol 2 % topical gel (Blue Gel) 1 applic topical Q12H PRN PAIN 06/05/25 Unknown History tizanidine 4 mg tablet 4 mg PO TID 06/05/25 Unknown History tramadol 50 mg tablet 50 mg PO Q8H PRN pain 06/05/25 Unknown History Allergy/AdvReac Type Severity Reaction Status Date / Time No Known Allergies Allergy Verified 02/01/24 08:36 Family History Other Dementia Surgical History History of appendectomy History of splenectomy Social History household members: none housing: senior living Smoking Status: Former smoker alcohol intake: never substance use type: does not use ROS ROS ED ROS Narrative Patient denies but is confused and this is not accurate Review of systems. Review of Systems ROS Unobtainable: due to mental condition EXAM Physical Exam Narrative Exam Narrative: Azithromycin male sitting upright in bed. Vital signs stable except pulse ox was hypoxic on 2 L he is 94% on room air he is hypoxic. Reportedly 82% per the nursing. H EENT exam pupils round reactive light. Dry mucous membranes. No trauma to his face or scalp nontender. No hematoma. C-spine nontender. Back nontender. Lungs clear to auscultation bilaterally. Heart regular rhythm rate about 80 no murmur. Chest wall and ribs nontender. No bruising. No crepitus. Abdomen soft, nontender, nondistended, normal bowel sounds peritoneal signs. No obstruction. Pelvic girdle intact. Moving all 4 extremities. Nontender. No deformity. Normal processing associate strength. Normal dorsi plantarflexion. Neurologically he is awake. His eyes are open. But he is confused. He does not know the month or year. When I ask him he is not sure where his location is. He told the nurses he was at the hospital earlier. Const Vital Signs: 06/05/25 15:47 06/05/25 15:56 06/05/25 17:46 Temperature 98.8 F Temperature Source Oral Pulse Rate 85 94 Respiratory Rate 18 19 H Blood Pressure 196/99 H 149/94 H Blood Pressure Mean 131 112 Pulse Ox 94 96 Oxygen Delivery Method Nasal Cannula Nasal Cannula Nasal Cannula Oxygen Flow Rate (L/min) 2 2 06/05/25 19:00 06/05/25 21:00 Temperature Temperature Source Pulse Rate 91 69 Respiratory Rate 21 H 19 H Blood Pressure 147/86 H 145/79 H Blood Pressure Mean 106 101 Pulse Ox 95 95 Oxygen Delivery Method Nasal Cannula Nasal Cannula Oxygen Flow Rate (L/min) 2 Positive well nourished, well developed and cachectic; Negative for obese or contractures General Appearance ED: well developed and cachectic; Negative for contractures or NAD Nutritional Appearance: cachectic; Negative for obese HEENT Reports normocephalic atraumatic; Negative for trauma, contusion, hematoma or tenderness Eyes PERRL and EOMs intact bilaterally Neck full ROM, no lymphadenopathy and supple General: Negative for tenderness Chest Wall inspection of chest normal and palpation of chest normal Resp normal respiratory effort, no retractions and clear to auscultation bilaterally Cardio regular rate, regular rhythm, S1 normal heart sound, S2 normal heart sound and no murmurs GI non-tender, non-distended and no masses Palpation: soft; Negative for guarding or rebound tenderness present Back/Spine no CVA tenderness General Back: Negative for CVA tenderness Cervical Spine: Negative for cervical spine tenderness Lumbar Spine / Lower Back: Negative for lumbar spinal tenderness Neuro No oriented x3, CN's II-XII intact bilaterally, moves all extremities and no focal motor deficits Neuro Narrative: Confused. Does not know month or year. Currently does not know place. Sensorium / Orientation: alert, oriented to person, orientation impaired and confused; Negative for oriented to place or oriented to time Motor Exam: general weakness Psych mental status grossly normal and thought process normal Skin Lesions: no lesions Rashes: no rashes MDM MDM MDM Narrative Medical decision making narrative: 85-year-old male reportedly fell at senior living as a mental status change today. No signs of head trauma nor any complaints of headache. This may be metabolic because he was hypoxic also. Consider dehydration, head injury, infection excetra. CAT scan and labs are being obtained. To be treated with normal saline. Because he looks dehydrated. Repeat exam patient is resting comfortably at 9:20 PM. Discussion with nurse at bedside he is a family friend and family members. They do not want a chest tube at this time. [facility] be [facility] to [facility]. The hospitalist has talked to him about CODE STATUS and how aggressive they want to be. History & Record Review Discussion w/independent historian: Patient Additional record(s) reviewed:: Prior inpatient record, Prior outpatient record, Prior ED visit and Prior labs Lab Data Attestation: I reviewed the patient's lab results. Lab results narrative: CBC shows a white count of 14.3. H&H of 13 and 40 platelets 187. Electrolytes show a gap of 11. BUN and creatinine of 17 and 1.1 glucose 110. Lactic acid 1.3. Liver enzymes are normal. UA is negative. Chest x-ray shows multiple old rib fractures of the right with a pneumothorax. Discussed with nurse who is with the patient is a good family friend. She discussed with the family at length they did not want a chest tube or Heimlich valve. Labs: Laboratory Results - last 24 hr 06/05/25 06/05/25 15:57 16:16 WBC 14.3 H RBC 4.15 L Hgb 13.7 Hct 40.9 MCV 98.6 H MCH 33.0 H MCHC 33.5 RDW Std Deviation 55.9 H RDW Coeff of [place] 15.3 H Plt Count 187 MPV 11.6 Immature Gran % (Auto) 0.300 Neut % (Auto) 79.7 H Lymph % (Auto) 7.2 L [place] % (Auto) 11.7 H Eos % (Auto) 0.8 Baso % (Auto) 0.3 Absolute Neuts (auto) 11.4 H Absolute Lymphs (auto) 1.02 Nucleated RBC % 0 Differential Comment SCANNED Platelet Estimate ADEQUATE Sodium 141 Potassium 4.2 Chloride 101 Carbon Dioxide 29.0 Anion Gap 11 BUN 17 Creatinine 1.10 Estim Creat Clear Calc 34.30 L Est GFR (MDRD) Non-Af 65 BUN/Creatinine Ratio 15.5 Glucose 110 H Lactic Acid 1.3 Calcium 9.6 Total Bilirubin 0.83 AST 28 ALT 17 Alkaline Phosphatase 78 Total Protein 7.5 Albumin 4.1 Globulin 3.4 Albumin/Globulin Ratio 1.2 Urine Color Yellow Urine Clarity Clear Urine pH 6.0 Ur Specific [place] 1.020 Urine Protein 30 H Urine Glucose (UA) Normal Urine Ketones Negative Urine Occult Blood 25 H Urine Nitrite Negative Urine Bilirubin Negative Urine Urobilinogen Normal Ur Leukocyte Esterase Negative Urine RBC 0-5 SEEN Urine WBC 0-5 SEEN Ur Squamous Epith Cells 0-5 SEEN Urine Bacteria 0 SEEN Urine Mucus 0 SEEN Radiography Chest X-Ray - ED: 1 View, Read by ED Physician, Read by Radiologist, Chronic Changes and Right Rib Fx Diagnostic Testing: Clinical Impression(s) from Imaging Studies Brain CT 06/05/25 16:05 IMPRESSION: No acute intracranial process. Reading Location: [facility] Chest X-Ray 06/05/25 16:31 IMPRESSION: 1. Right lung base consolidation may represent pneumonia. 2. Left upper lung zone 11 mm nodule, better characterized on prior CT. 3. Right lateral mid lung zone chronic linear scarring/discoid atelectasis, likely related to multiple old right posterolateral rib fractures. Reading Location: [facility] Cervical Spine CT 06/05/25 16:39 IMPRESSION: 1. No acute cervical spine fracture or traumatic malalignment. 2. Small right pneumothorax seen in the included lung apices. Findings discussed via telephone with provider Rajinder Renner 06/05/2025 at 4:50 p.m. THEATRE [employer]S PROFESSOR. Reading Location: [facility] Lumbar Spine X-Ray 06/05/25 16:55 IMPRESSION: 1. Small right apical pneumothorax again noted. 2. New probable acute mild compression fracture involving superior endplate of T6. 3. Stable appearing severe chronic compression fracture deformity of T12. 4. Mild multilevel spondylotic changes with thoracic scoliosis. Reading Location: [facility] Thoracic Spine X-Ray 06/05/25 16:55 IMPRESSION: 1. Small right apical pneumothorax again noted. 2. New probable acute mild compression fracture involving superior endplate of T6. 3. Stable appearing severe chronic compression fracture deformity of T12. 4. Mild multilevel spondylotic changes with thoracic scoliosis. Reading Location: [facility] Chest x-ray, portable single view interpreted by myself and the radiology shows multiple rib fractures on the right at least 3 somewhat displaced. With about a 20% pneumothorax in the APC. Normal cardiac silhouette. Left lung unremarkable. Lumbar spine x-ray shows an old compression fracture of T12. No acute lumbar fractures. Thoracic x-ray interpreted by myself and the radiologist shows a T6 and T12 compression fractures. Rhythm Strip Rhythm Strip: Sinus Rhythm Rate: 82 Ectopy: None EKG Initial EKG: Attestation: I personally reviewed and interpreted this EKG as follows: Interpretation: Sinus Rhythm and No Acute Injury Pattern Comments: Normal sinus rhythm rate 82 no acute signs of IA or ischemia. Discharge Plan Triage Chief Complaint: Fall ED Provider: Rajinder Renner Dx/Rx/DC Orders Clinical Impression: Multiple falls, Multiple fractures of ribs, Closed traumatic fracture of ribs of right side with pneumothorax, DNR (do not resuscitate), Dementia, Vertebral compression fracture Prescriptions: No Action multivitamin [Multiple Vitamins] Tablet 1 tab PO DAILY acetaminophen [Tylenol] 325 mg tablet 650 mg PO Q4H PRN (Reason: fever) finasteride 1 mg tablet 1 mg PO DAILY donepezil 10 mg tablet 10 mg PO QHS Qty: 30 4RF bisacodyl 10 mg suppository 10 mg IA DAILY PRN (Reason: constipation) docusate sodium [Colace] 100 mg capsule 100 mg PO BID PRN (Reason: constipation) duloxetine [Cymbalta] 60 mg capsule,delayed release(DR/EC) 60 mg PO DAILY loperamide 2 mg tablet 2 mg PO Q4H PRN (Reason: loose stool) magnesium hydroxide [Milk of Magnesia] 400 mg/5 mL suspension 30 ml PO DAILY PRN (Reason: constipation) acetaminophen 500 mg capsule 1,000 mg PO Q8H PRN (Reason: fever or pain) menthol [Blue Gel] 2 % gel 1 applic topical Q12H PRN (Reason: PAIN) hydrocortisone 2.5 % cream 1 applic topical BID PRN (Reason: skin irritation) ipratropium bromide 21 mcg (0.03 %) spray,non-aerosol 2 spray INTRANASAL BID Patient Comments: [NO ORIGINAL SIG] tizanidine 4 mg tablet 4 mg PO TID tramadol 50 mg tablet 50 mg PO Q8H PRN (Reason: pain) gabapentin 300 mg Capsule 300 mg PO Q12H Primary Care Provider: Piero Ngo Referrals: Piero Ngo MD [Primary Care Provider] - Print Language: Cook Islander Disposition Disposition: Acute Care Hospital [facility]
[2025-06-05] MEDS: 0.9% Normal Saline (1000mL) 1,000 ML 1000 ML IV (16:23)
[2025-06-05 16:24] LABS: Hematocrit 40.9 % (40-54); Hemoglobin 13.7 g/dL (13.0-16.5); Immature Granulocytes Count 0.040 X10^3/uL (0.0-0.0); Mean Corp Hgb Conc 33.5 g/dL (32-36); Mean Corpuscular Volume 98.6 fL (80-94); Mean Platelet Vol. 11.6 fl (6.2-12.0); NRBC Flagged by Analyzer 0 % (0-5); POSITIVE DIFFERENTIAL YES; Platelet Count 187 K/mm3 (150-450); RBC Distribution Width CV 15.3 % (11.6-14.6); RBC Distribution Width SD 55.9 fl (35.1-43.9); Red Blood Count 4.15 M/mm3 (4.6-6.2); White Blood Count 14.3 K/mm3 (4.4-11.0)
[2025-06-05 16:26] LABS: Differential Indicated SCAN CRITERIA MET
[2025-06-05 16:30] LABS: Mucous, Urine 0 SEEN /hpf (<or=2+)
--- NOTE | 2025-06-05 16:31 | RAD_ITS ---
PROCEDURE: CHEST 1 VIEW (PORTABLE) 06/05/2025 REASON FOR EXAM: FOLLOW-UP. CONFUSED. TECHNIQUE: Frontal view of the chest. COMPARISON: Chest x-ray and CT exams 10/27/2024. FINDINGS: Lungs/Pleura: Right lung base consolidation concerning for pneumonia chronic linear scarring/discoid atelectasis in the lateral right mid lung zone. Left lung is clear. Redemonstrated left upper lung zone 11 mm nodule. No pneumothorax or sizable pleural effusion. Heart/Mediastinum: Borderline enlarged. Tortuous and calcified aorta. Bones/Soft tissues: Degenerative changes of the spine. Qualitative osteopenia. Multiple old right posterolateral rib fracture deformities. RAD/Chest 1 View (Portable) IMPRESSION: 1. Right lung base consolidation may represent pneumonia. 2. Left upper lung zone 11 mm nodule, better characterized on prior CT. 3. Right lateral mid lung zone chronic linear scarring/discoid atelectasis, lik harvinder related to multiple old right posterolateral rib fractures. Reading Location: [id number]
--- NOTE | 2025-06-05 16:39 | CT_ITS ---
PROCEDURE: SPINE CERVICAL WITHOUT CONTRAS 06/05/2025 REASON FOR EXAM: FALL TECHNIQUE: SPINE CERVICAL WITHOUT CONTRAS Coronal and Sagittal reconstruction series were provided. One or more dose reduction techniques were used (e.g., Automated exposure control, adjustment of the mA and/or kV according to patient size, use of iterative reconstruction technique. RADIATION DOSE SUMMARY: CTDlvol: 13.17 mGy DLP: 298.47 mGycm COMPARISON: C-spine CT 10/27/2024, MRI 12/26/2024. FINDINGS: No acute fracture or subluxation. Trace degenerative grade 1 anterolisthesis of C7 on T1. Moderate multilevel spondylotic changes with varying degrees of disc space narrowing, endplate sclerosis with multiple small Schmorl's nodes and/or subchondral cysts. Anterior endplate osteophytosis, uncovertebral spurring and hypertrophic facet arthropathy. No prevertebral soft tissue swelling. Atherosclerotic vascular calcifications. There is a small right apical pneumothorax seen in the partially included upper thorax. CT/Spine Cervical without Contras IMPRESSION: 1. No acute cervical spine fracture or traumatic malalignment. 2. Small right pneumothorax seen in the included lung apices. Findings discussed via telephone with provider Rajinder Renner 06/05/2025 at 4:50 p .m. PROGRAMMER OR ANALYST. Reading Location: [id number]
--- NOTE | 2025-06-05 16:55 | RAD_ITS ---
PROCEDURE: THORACIC SPINE 2 VIEWS; LUMBAR SPINE 2 OR 3 VIEWS 06/05/2025 REASON FOR EXAM: FALL TECHNIQUE: THORACIC SPINE 2 VIEWS; LUMBAR SPINE 2 OR 3 VIEWS COMPARISON: CT chest 10/27/2024. Lumbar spine MRI 12/26/2024. FINDINGS: Redemonstrated severe chronic compression fracture deformity of T12 superior endplate, grossly stable compared with the 10/27/[address] Slight osseous retropulsion at the posterosuperior aspect of the vertebral body is also unchanged. Mild age-indeterminate compression fracture involving the superior endplate of T6, with less than 50% height loss and no evidence for retropulsion, newly sustained since 10/27/2024. Remaining vertebral body heights are grossly preserved. Chronic grade 2 anterolisthesis of L5 on S1. Slight degenerative grade 1 retrolisthesis of L2 on L3, and L3 on L4. Mild S-shaped thoracic scoliotic curvature. Multilevel spondylotic changes with varying degrees of disc space narrowing, endplate sclerosis, anterior osteophytosis, and hypertrophic facet arthropathy. Partially imaged left hip arthroplasty hardware. Mild degenerative right hip arthrosis. Small right apical pneumothorax again noted in the visualized right lung field. Patchy right basilar consolidation may represent pneumonia versus pulmonary contusions in the setting of trauma. Redemonstrated multiple chronic bilateral rib fracture deformities. RAD/Thoracic Spine 2 Views IMPRESSION: 1. Small right apical pneumothorax again noted. 2. New probable acute mild compression fracture involving superior endplate of T6. 3. Stable appearing severe chronic compression fracture deformity of T12. 4. Mild multilevel spondylotic changes with thoracic scoliosis. Reading Location: [id number]
--- NOTE | 2025-06-05 16:55 | RAD_ITS ---
PROCEDURE: THORACIC SPINE 2 VIEWS; LUMBAR SPINE 2 OR 3 VIEWS 06/05/2025 REASON FOR EXAM: FALL TECHNIQUE: THORACIC SPINE 2 VIEWS; LUMBAR SPINE 2 OR 3 VIEWS COMPARISON: CT chest 10/27/2024. Lumbar spine MRI 12/26/2024. FINDINGS: Redemonstrated severe chronic compression fracture deformity of T12 superior endplate, grossly stable compared with the 10/27/[address] Slight osseous retropulsion at the posterosuperior aspect of the vertebral body is also unchanged. Mild age-indeterminate compression fracture involving the superior endplate of T6, with less than 50% height loss and no evidence for retropulsion, newly sustained since 10/27/2024. Remaining vertebral body heights are grossly preserved. Chronic grade 2 anterolisthesis of L5 on S1. Slight degenerative grade 1 retrolisthesis of L2 on L3, and L3 on L4. Mild S-shaped thoracic scoliotic curvature. Multilevel spondylotic changes with varying degrees of disc space narrowing, endplate sclerosis, anterior osteophytosis, and hypertrophic facet arthropathy. Partially imaged left hip arthroplasty hardware. Mild degenerative right hip arthrosis. Small right apical pneumothorax again noted in the visualized right lung field. Patchy right basilar consolidation may represent pneumonia versus pulmonary contusions in the setting of trauma. Redemonstrated multiple chronic bilateral rib fracture deformities. RAD/Lumbar Spine 2 or 3 Views IMPRESSION: 1. Small right apical pneumothorax again noted. 2. New probable acute mild compression fracture involving superior endplate of T6. 3. Stable appearing severe chronic compression fracture deformity of T12. 4. Mild multilevel spondylotic changes with thoracic scoliosis. Reading Location: [id number]
[2025-06-05 16:57] LABS: Color, Urine Yellow (Yellow); Glucose, Dipstick Normal (Normal); Ketone-Dipstick Negative (Negative); Leukocyte Esterase-Dipstick Negative /ul (Negative); Nitrite-Dipstick Negative (Negative); Occult Blood-Urine 25 /ul (Negative); Protein-Dipstick 30 mg/dl (Negative); Specific Gravity, Urine 1.020 (1.002-1.030); Urine Bilirubin Dipstick Negative (Negative)
[2025-06-05 17:07] LABS: AST(SGOT) 28 U/L (<=37); Alanine Aminotransfer ALT/SGPT 17 U/L (<=46); Albumin, Serum 4.1 g/dL (3.4-4.8); Alkaline Phosphatase 78 U/L (40-129); Anion Gap 11 (5-15); BUN 17 mg/dL (4-19); BUN/Creat Ratio 15.5 RATIO (10-20); Calcium,Total 9.6 mg/dL (7.6-11.0); Carbon Dioxide 29.0 mmol/L (21.0-32.0); Chloride 101 mmol/L (98-108); Estimated Creatinine Clearance 34.30 ml/min (50-250); Globulin 3.4 g/dL (2.2-4.2); Glucose 110 mg/dL (70-99); Potassium 4.2 mmol/L (3.3-5.1)
[2025-06-05 17:38] LABS: Red Blood Cells-Urine 0-5 SEEN /hpf (0-5); Squamous Epithelial Cells - UA 0-5 SEEN /hpf (0-5)
[2025-06-05 17:46] VITALS: BP 149/94; PULSE 94; RESP 19; O2SAT 96
[2025-06-05 18:12] LABS: Differential Comment SCANNED
[2025-06-05 19:00] VITALS: BP 147/86; PULSE 91; RESP 21; O2SAT 95
[2025-06-05 21:00] VITALS: BP 145/79; PULSE 69; RESP 19; O2SAT 95
--- NOTE | 2025-06-05 21:46 | PCM.HP.STD ---
HPI - General General Date of Admission: 06/05/25 Date of Service: 06/05/25 Chief Complaint: Fall with injury in jail HPI Narrative TAYA BONILLA, is a 85 M who presents to the emergency room chief complaint of fall in the jail. Patient has sustained multiple rib fractures on the right side with a small right upper pneumothorax. Patient has decreased mentation and is a poor historian at present time is seen with family member present along with family listening in on telephone call via conference call. Patient is currently comfortable as long as he is not moving in bed. After discussion with family members they opted not to have a chest tube placed in the emergency room and rather would be conservative in their approach to his care. Family member was amenable to having a palliative care consult in the morning. Patient will be admitted to medical surgical floor for pain control and determination of long-term plan. Patient is DO NOT RESUSCITATE Comfort Care arrest at this time. FORMERLY [facility], 1928–1983 Medical History Multiple fractures of ribs, bilateral, subsequent encounter for fracture with routine healing Personal history of malignant neoplasm of bone Wedge compression fracture of t11-T12 vertebra, sequela Dysphagia Radiculopathy Other cervical disc degeneration, mid-cervical region, unspecified level BPH (benign prostatic hyperplasia) Chronic anemia CKD (chronic kidney disease), stage III Former tobacco use Hypothyroidism Dementia Hypertension Frequent falls Lung nodule seen on imaging study Sacral fracture, closed Home Medications Medication Instructions Recorded Last Taken Type acetaminophen 325 mg tablet 650 mg PO Q4H PRN fever 10/01/23 Unknown History (Tylenol) finasteride 1 mg tablet 1 mg PO DAILY 10/01/23 Unknown History multivitamin (Multiple Vitamins 1 tab PO DAILY 10/01/23 Unknown History tablet) donepezil 10 mg tablet 10 mg PO QHS #30 tabs 02/01/24 Unknown Rx bisacodyl 10 mg rectal suppository 10 mg IA DAILY PRN constipation 10/28/24 Unknown History docusate sodium 100 mg capsule 100 mg PO BID PRN constipation 10/28/24 Unknown History (Colace) duloxetine 60 mg capsule,delayed 60 mg PO DAILY 10/28/24 Unknown History release (Cymbalta) loperamide 2 mg tablet 2 mg PO Q4H PRN loose stool 10/28/24 Unknown History magnesium hydroxide 400 mg/5 mL 30 ml PO DAILY PRN constipation 10/28/24 Unknown History oral suspension (Milk of Magnesia) acetaminophen 500 mg capsule 1,000 mg PO Q8H PRN fever or pain 06/05/25 Unknown History gabapentin 300 mg capsule 300 mg PO Q12H 06/05/25 Unknown History hydrocortisone 2.5 % topical cream 1 applic topical BID PRN skin 06/05/25 Unknown History irritation ipratropium bromide 21 mcg (0.03 2 spray intranasal BID 06/05/25 Unknown History %) nasal spray menthol 2 % topical gel (Blue Gel) 1 applic topical Q12H PRN PAIN 06/05/25 Unknown History tizanidine 4 mg tablet 4 mg PO TID 06/05/25 Unknown History tramadol 50 mg tablet 50 mg PO Q8H PRN pain 06/05/25 Unknown History Allergy/AdvReac Type Severity Reaction Status Date / Time No Known Allergies Allergy Verified 02/01/24 08:36 Family History Other Dementia Surgical History History of appendectomy History of splenectomy Social History household members: none housing: jail Smoking Status: Former smoker alcohol intake: never substance use type: does not use ROS Review of Systems ROS Unobtainable: due to mental status Cardiovascular Cardiovascular: Reports chest pain Vital Signs Vital Signs Vital Signs: 06/05/25 15:47 06/05/25 15:56 06/05/25 17:46 Temperature 98.8 F Temperature Source Oral Pulse Rate 85 94 Respiratory Rate 18 19 H Blood Pressure 196/99 H 149/94 H Blood Pressure Mean 131 112 Pulse Ox 94 96 Oxygen Delivery Method Nasal Cannula Nasal Cannula Nasal Cannula Oxygen Flow Rate (L/min) 2 2 06/05/25 19:00 06/05/25 21:00 Temperature Temperature Source Pulse Rate 91 69 Respiratory Rate 21 H 19 H Blood Pressure 147/86 H 145/79 H Blood Pressure Mean 106 101 Pulse Ox 95 95 Oxygen Delivery Method Nasal Cannula Nasal Cannula Oxygen Flow Rate (L/min) 2 Weight Weight: 110 lb 14.28 oz Body Mass Index (BMI) 16.8 Physical Exam Const alert General Appearance: cooperative Orientation / Consciousness: confused and lethargic HEENT normocephalic and head/scalp atraumatic Eyes PERRL Neck no lymphadenopathy Lymph Lymphatic: no lymphedema noted Resp normal respiratory effort Auscultation: diminished lung sounds; Negative for rales, rhonchi or wheezes Cardio regular rate, regular rhythm, S1 normal heart sound and S2 normal heart sound GI normal to inspection, nondistended, normoactive bowel sounds and soft to palpation Extremity normal capillary refill Skin General Skin Exam: no breakdown Neuro Motor Exam: general weakness Psych Psych Narrative: AXOX1 Appearance: appropriate Results Lab / Micro Data 06/05/25 15:57 06/05/25 15:57 Labs: Laboratory Results - last 24 hr 06/05/25 15:57: WBC 14.3 H, RBC 4.15 L, Hgb 13.7, Hct 40.9, MCV 98.6 H, MCH 33.0 H, MCHC 33.5, RDW Std Deviation 55.9 H, RDW Coeff of [place] 15.3 H, Plt Count 187, MPV 11.6, Immature Gran % (Auto) 0.300, Neut % (Auto) 79.7 H, Lymph % (Auto) 7.2 L, Whiteside % (Auto) 11.7 H, Eos % (Auto) 0.8, Baso % (Auto) 0.3, Absolute Neuts (auto) 11.4 H, Absolute Lymphs (auto) 1.02, Nucleated RBC % 0, Differential Comment SCANNED, Platelet Estimate ADEQUATE, Sodium 141, Potassium 4.2, Chloride 101, Carbon Dioxide 29.0, Anion Gap 11, BUN 17, Creatinine 1.10, Estim Creat Clear Calc 34.30 L, Est GFR (MDRD) Non-Af 65, BUN/Creatinine Ratio 15.5, Glucose 110 H, Calcium 9.6, Total Bilirubin 0.83, AST 28, ALT 17, Alkaline Phosphatase 78, Total Protein 7.5, Albumin 4.1, Globulin 3.4, Albumin/Globulin Ratio 1.2 06/05/25 16:16: Lactic Acid 1.3, Urine Color Yellow, Urine Clarity Clear, Urine pH 6.0, Ur Specific [place] 1.020, Urine Protein 30 H, Urine Glucose (UA) Normal, Urine Ketones Negative, Urine Occult Blood 25 H, Urine Nitrite Negative, Urine Bilirubin Negative, Urine Urobilinogen Normal, Ur Leukocyte Esterase Negative, Urine RBC 0-5 SEEN, Urine WBC 0-5 SEEN, Ur Squamous Epith Cells 0-5 SEEN, Urine Bacteria 0 SEEN, Urine Mucus 0 SEEN Micro: Microbiology 06/05/25 16:20 Mucosa - Nose SARS-CoV-2, Influenza & RSV (PCR) - Final Rhythm Strip Rhythm Strip: Sinus Rhythm Rate: 82 Ectopy: None Imaging Radiology Impression Brain CT 06/05/25 16:05 IMPRESSION: No acute intracranial process. Reading Location: [facility] Chest X-Ray 06/05/25 16:31 IMPRESSION: 1. Right lung base consolidation may represent pneumonia. 2. Left upper lung zone 11 mm nodule, better characterized on prior CT. 3. Right lateral mid lung zone chronic linear scarring/discoid atelectasis, likely related to multiple old right posterolateral rib fractures. Reading Location: [facility] Cervical Spine CT 06/05/25 16:39 IMPRESSION: 1. No acute cervical spine fracture or traumatic malalignment. 2. Small right pneumothorax seen in the included lung apices. Findings discussed via telephone with provider Rajinder Renner 06/05/2025 at 4:50 p.m. [employer]. Reading Location: [facility] Lumbar Spine X-Ray 06/05/25 16:55 IMPRESSION: 1. Small right apical pneumothorax again noted. 2. New probable acute mild compression fracture involving superior endplate of T6. 3. Stable appearing severe chronic compression fracture deformity of T12. 4. Mild multilevel spondylotic changes with thoracic scoliosis. Reading Location: [facility] Thoracic Spine X-Ray 06/05/25 16:55 IMPRESSION: 1. Small right apical pneumothorax again noted. 2. New probable acute mild compression fracture involving superior endplate of T6. 3. Stable appearing severe chronic compression fracture deformity of T12. 4. Mild multilevel spondylotic changes with thoracic scoliosis. Reading Location: [facility] Assessment & Plan Assessment/Plan (1) Vertebral compression fracture: (2) Dementia: (3) DNR (do not resuscitate): (4) Closed traumatic fracture of ribs of right side with pneumothorax: (5) Multiple falls: (6) Thrombocytopenia: (7) Hypertension: PLAN: Plan 1. Fall with fracture of ribs and compression fracture of T6 and older fracture at T12.–Admit patient to general medical floor for pain control. Will consult palliative care team as patient's family is discussing how aggressive they wish to be. Will add as needed pain medication 2. Apical pneumothorax small–after further discussion with family patient is DO NOT RESUSCITATE Comfort Care arrest and they do not wish to be aggressive with placing a chest tube at this present time. Will repeat chest x-ray in the a.m. 3. Thrombocytopenia–repeat CBC 4. Hypertension–continue routine home medications and monitor 5. Dementia–currently stable but will need to monitor for fall risk as patient may try to get out of bed in a confused state 6. DVT prophylaxis–SCDs Charges/Coding Visit Charges Inpatient E&M: 26439 Init Hosp L2
--- OUTSIDE RECORDS SUMMARY | 2025-06-05 22:12 | XMS RPT_ITS | CCD ---
Author Organization [facility] Care Team Providers Care Value Stream Leader Name Role Phone Piero Rubin MD Primary Care Provider Dr. Piero Rubin Primary Care Provider Dr. Rosalinda Kilgore Emergency Provider Dr. Nicholas Marroquin Admit Provider Dr. Nicholas Marroquin Other Provider Dr. Miles Stout Attending Provider Unavailable Dr. Miles Stout Other Provider Unavailable Dr. Dewayne Valdovinos Other Provider Dr. Ebenezer Sy Other Provider [phone] Nii Black Other Provider Fanraz [employer]LE[employer] NETWORK PLANNER, TELECOMMUNICATIONS NETWORK PLANNER-C Francy Other Provider Dr. Bill Mae Other Provider Unavailab Dr. Ebenezer Rivera Attending Provider Dr. Jena Sawyer Other Provider Dr. Jena Sawyer Attending Provider [phone] Dr. Raven Saucedo Other Provider Dr. Dewayne Valdovinos Attending Provider Dr. Jena Swayer Referring Provider Piero Rubin MD Primary Care Provider Gemini [employer]LE[employer] NETWORK PLANNER, TELECOMMUNICATIONS NETWORK PLANNER-C Angelica Attending Provider Unav Dr. Piero Parra Primary Care Provider Dr. Piero Rubin Referring Provider Dr. Rahul Terrazsa Attending Provider Scottie SINGH, Piero Cheema Primary Care Provider Piero Rubin MD Primary Care Provider Anival MONAEDennis TORRES Unavailable Ines Chatterjee PA-C Unavailable [phone] Martha RODRIGUEZ, Sarahi Unavailable Unavailable MATT MICHAEL Attending Unavailable SCOTTIE, PIERO A Primary Care Unavailable SCOTTIE, PIERO A Primary Care Unavailable MOJGAN SCHULTE Admitting Unavailable MICHELLE EVGA Unavailable MAHIN GEORGE Attending Unavailable Scottie, Piero Primary Care Unavailable Dipti Smith Attending Unavailable Sarah, Dipti Referring Unavailable Scottie, Piero Primary Care Unavailable Sarah Dipti Attending Unavailable Nicasio, Dipti Referring Unavailable Sarah, Dipti Referring Unavailable Scottie, Piero Primary Care Unavailable Dipti Smith Attending Unavailable Min Ortega Attending Unavailable Min Ortega Referring Unavailable Scottie, Piero Primary Care Unavailable Oleannye Inessa BENNETT Attending Unavailabl e Scottie, Piero Primary Care Unavailable Rahul Terrazas Attending Unavailable Scottie, Piero Primary Care Unavailable Scottie, Piero Referring Unavailable Oleghe Marge BENNETTbe Attending Unavailabl e Scottie, Piero Primary Care Unavailable Oleghe SABRINA Efhernestobe Attending Unavailabl e Scottie, Piero Primary Care Unavailable Oleghe Marge BENNETTbe Attending Unavailabl e Scottie, Piero Primary Care Unavailable Oleannye Efewkelybe Attending Unavailable Scottie, Piero Primary Care Unavailable Angelica Singletary NP Attending Unavailable Scottie, Piero Primary Care Unavailable SCOTTIE, PIERO A Primary Care Unavailable INES CHATTERJEE Referring Unavailable SCOTTIE, PIERO A Primary Care Unavailable INES CHATTERJEE Referring Unavailable SCOTTIE, PIERO A Primary Care Unavailable INES CHATTERJEE Attending Unavailable SCOTTIE, PIERO A Attending Unavailable SCOTTIE, PIERO A Primary Care Unavailable Medications Current Medications Medication Drug Class(es) Dates Sig (Normalized) Sig (Original) 168 hr buprenorphine 0.005 mg/hr transdermal system (20 sources) Partial Opioid Agonist Start: 11-09-2024 buprenorphine (BUTRANS) 5 mcg/hour Apply 2 Patches as directed one time a week for 1 day. 11/09/2024 Active Start: 11-02-2024 apply 1 dose transde rmal route every week buprenorphine (BUTRANS) 10 mcg/hour Apply 1 Patch as directed one time a week for 1 day. 11/02/2024 Active DAILY MULTIVITAMIN TAB (20 sources) Start: 04-23-2006 DAILY MULTIVIT WOLFF TAB Take one(1) tablet daily. 0 04/23/2006 Suspended Start: 04-23-2006 DAILY MULTIVIT WOLFF TAB Take one(1) tablet daily. 0 04/23/2006 Active Comment on above: Take one(1) tablet d aily. docusate sodium 50 mg / sennosides, shelter 8.6 mg oral tablet (14 sources) Start: 11-02-2024 take 1 tablet by mouth twice daily senna-docusate (SENNA-S) 8.6-50 mg per tablet Take 1 tablet by mouth two times a day. 11/02/2024 Active donepezil hydrochloride 10 mg oral tablet (20 sources) Start: 12-20-2024 take 1 tablet by mouth once daily at bedtime donepezil (ARICEPT) 10 mg tablet Take 1 tablet by mouth daily at bedtime. 12/20/2024 Active Start: 10-26-2023 take 5 mg by mouth at bedtime Donepezil Active 5 MG PO AT BEDTIME October 26, 2023 12:00am Start: 10-26-2023 End: 12-07-2024 take 1 tablet by mouth once daily at bedtime donepezil (ARICEPT) 10 mg tablet Take 1 tablet by mouth daily at bedtime. Per Neuro: Dr. Gentile. 10/26/2023 12/07/2024 Discontinued Comment on above: Take 1 tablet by justin th daily at bedtime. Per Neuro: Dr. Gentile. DULoxetine 60 mg delayed release oral capsule (7 sources) Serotonin and Norepinephrine Reuptake Inhibitor Start: 12-20-19 take 1 capsule by mouth once daily DULoxetine (CYMBALTA) 60 mg capsule Take 1 capsule by mouth once daily. 12/20/2024 Active finasteride 1 mg oral tablet (20 sources) 5-alpha Reductase Inhibitor Start: 12-31-19 End: 02-22-20 take 1 tablet by mouth once daily finasteride (PROPECIA) 1 mg tablet Indications: Medication refill Take 1 tablet by mouth once daily. 90 tablet 3 02/21/2025 Active Comment on above: Take 1 tablet by [facility] once daily. gabapentin 300 mg oral capsule (20 sources) Anti-epileptic Agent Start: 11-02-20 take 1 capsule by mouth twice daily gabapentin (NEURONTIN) 300 mg capsule Take 1 capsule by mouth two times a day for 1 day. 11/02/2024 Active Start: 05-12-2023 End: 01-03-2024 take 1 capsule by mouth three times daily gabapentin (NEURONTIN) 300 mg capsule Indications: Lumbar radiculopathy Take 1 capsule by mouth three times daily for 180 days. 90 capsule 5 07/07/2023 Suspended Start: 04-18-2023 End: 05-12-2023 take 200 mg by mouth once daily Gabapentin Discontinue d 200 MG PO DAILY April 17, 2023 11:00pm May 12, 2023 8:45pm Start: 02-17-2022 End: 08-12-2023 gabapentin (NEURONTIN) 100 m g capsule Indications: Lumbar radiculopathy Take 2 tablets daily for nerve pain 180 capsule 3 08/11/2022 06/18/2023 Discontinued (Adjust Sig - Block E-Cancel) Comment on above: Take 2 tablets daily for nerve pain Take 1 capsule by [facility] three times daily for 180 days. Take 2 tablets daily for nerve pain Take 1 capsule by [facility] three times daily for 180 days. hydrocortisone 25 mg/ml topical cream (20 sources) Corticosteroid Start: End: hydrocortisone 2.5 % cream Apply 1 application to affected area twice daily. APPLY TO AFFECTED AREAS 30 g 10 01/08/2023 Active Comment on above: Apply 1 application to affected area twice daily. APPLY TO AFFECTED AREAS ipratropium bromide 0.021 mg/actuat metered dose nasal spray (20 sources) Anticholinergic Start: 023 Ipratropium [place] (ATROVENT) 21 mcg (0.03 %) nasal spray Use 2 Sprays in the nose every 12 hours. 30 mL 5 10/14/2023 Active Comment on above: Use 2 Sprays in the nose every 12 hours. loperamide hydrochloride 2 mg oral tablet (20 sources) Opioid Agonist Start: loperamide HCl (IMODIUM) 2 mg tab Take 1 tablet by mouth as needed. For loose stools at [place] 06/18/2023 Active Comment on above: Take 1 tablet by justin th as needed. For loose stools at [facility] meclizine hydrochloride 25 mg oral tablet (20 sources) Antiemetic Start: take 1 tablet by mouth every six hours as needed meclizine (ANTIVERT) 25 mg tab Take 1 tablet by mouth every 6 hours as needed (dizziness). 30 tablet 1 09/13/2021 Active Comment on above: Take 1 tablet by justin th every 6 hours as needed (dizziness). melatonin 3 mg oral tablet (17 sources) Start: take 2 tablets by mouth every twenty-four hours as needed melatonin 3 mg tablet Take 2 tablets by mouth at bedtime as needed for insomnia. 11/02/2024 Active Start: 10-01-2023 Melatonin Acti ve MG PO AT BEDTIME October 01, 2023 12:00am Give 1 tab by mouth as needed at bedtime for insomnia may have 2 tablets if needed Multivitamin (Multiple Vitamins) tablet (3 sources) Start: 10-01-2023 take 1 tablet by mouth once daily Multivitamin (Multiple Vitamins) tablet Active 1 TABLET PO DAILY October 01, 2023 12:00am polyethylene glycol 3350 99064 mg powder for oral solution (14 sources) Osmotic Laxative Start: 11-02-2024 polyethylene glycol 3350 17 gram packet Take 1 Packet by mouth once daily. Dissolve dose in 4 - 8 ounces of liquid and take as directed. 11/02/2024 Active tiZANidine 4 mg oral tablet (7 sources) Central alpha-2 Adrenergic Agonist Start: 12-20-2024 take 1 tablet by mouth every eight hours as needed tiZANidine (ZANAFLEX) 4 mg tablet Take 1 tablet by mouth every 8 hours as needed. 12/20/2024 Active Completed/Discontinued Medications Medication Drug Class(es) Dates Sig (Normalized) Sig (Original) acetaminophen 500 mg oral tablet (20 sources) Start: 10-01-2023 take 2 tablets by mouth every four hours Acetaminophen (Tylenol) 325 mg tablet Active 650 MG PO Q4H October 01, 2023 12:00am Start: 10-01-2023 take 2 tablets by mo [facility] once daily Acetaminophen (Tylenol 8 Hour) 650 mg tablet extended release Active 650 MG PO Q8H October 01, 2023 12:00am Give 2 tablets daily by mouth three times a day for arthritis pain Start: 06-18-2023 take 2 tablets by mo [facility] every eight hours as needed acetaminophen (TYLENOL EXTRA STRENGTH) 500 mg tablet Take 2 tablets by mouth every 8 hours as needed for pain. 06/18/2023 Active Start: 06-01-2023 End: 10-01-2023 take 1000 mg by mouth every six hours as needed Acetaminophen Discontinued 1000 MG PO EVERY 6 HOURS NEEDED 0 May 31, 2023 11:00pm October 01, 2023 9:24am Start: 05-12-2023 End: 10-01-2023 take 1000 mg by mouth every eight hours Acetaminophen Discontinued 1000 MG PO EVERY 8 HOURS October 01, 2023 9:23am October 01, 2023 9:29am Comment on above: Take 2 tablets by mo [facility] every 8 hours as needed for pain. baclofen 10 mg oral tablet (20 sources) gamma-Aminobutyric Acid-ergic Agonist Start: 06-18-2023 take 1 tablet by mouth every eight hours as needed baclofen 10 mg tablet Take 1 tablet by mouth three times daily as needed (muscle spasms). 06/18/2023 Suspended Start: 05-12-2023 take 5 mg by mouth t hree times daily Baclofen Active 5 MG PO THREE TIMES A DAY May 11, 2023 11:00pm Comment on above: Take 1 tablet by [facility] three times daily as needed (muscle spasms). bisacodyl 10 mg rectal suppository (19 sources) Stimulant Laxative Start: 10-02-20 End: 10-19-20 bisacodyl (DULCOLAX, BISACODYL,) 10 mg supp 1 Suppository by RECTAL route once daily as needed for constipation. 30 Each 2 10/02/2023 10/19/2024 Discontinued (Changing Therapy/Dosage Form) Comment on above: 1 Suppository by REC BREANA route once daily as needed for constipation. docusate sodium 100 mg oral capsule (3 sources) Start: 10-19-20 take 1 capsule by mouth every twelve hours as needed docusate sodium (COLACE) 100 mg capsule Take 1 capsule by mouth two times a day as needed for constipation. 60 capsule 11 10/19/2024 Suspended lisinopril 10 mg oral tablet (20 sources) Angiotensin Converting Enzyme Inhibitor Start: 04-29-20 End: 02-20-20 take 1 tablet by mouth once daily lisinopril (ZESTRIL) 10 mg tablet Take 1 tablet by mouth once daily. 90 tablet 1 02/20/2023 06/18/2023 Discontinued (Discontinued by another Health Care Provider) Comment on above: Take 1 tablet by justin th once daily. losartan potassium 100 mg oral tablet (20 sources) Angiotensin 2 Receptor Joanne Start: 05-12-20 End: 10-01-20 take 100 mg by mouth at bedtime Losartan Discontinued 100 MG PO AT BEDTIME May 31, 2023 11:00pm October 01, 2023 9:15am Comment on above: Take 100 mg by mouth once daily. Take one tablet daily oxyCODONE hydrochloride 10 mg oral tablet (7 sources) Opioid Agonist Start: 04-24-20 End: 05-12-20 take 10 mg by mouth every six hours Oxycodone Discontinued 10 MG PO EVERY 6 HOURS 04 04April 24, 2023 May 12, 2023 8:45pm traMADol hydrochloride 50 mg oral tablet (20 sources) Opioid Agonist Start: 09-27-20 End: 11-26-19 take 1 tablet by mouth every eight hours as needed for pain traMADol (ULTRAM) 50 mg tablet Indications: Primary osteoarthritis of both feet , Osteoarthritis of spine with radiculopathy, lumbar region Take 1 tablet by mouth every 8 hours as needed for pain for up to 60 days. 90 tablet 1 09/27/2024 11/26/2024 Suspended Start: 07-01-2023 End: 07-24-2024 take 1 tablet by mouth every eight hours as needed for pain traMADol (ULTRAM) 50 mg tablet Indications: Primary osteoarthritis of both feet , Osteoarthritis of spine with radiculopathy, lumbar region Take 1 tablet by mouth every 8 hours as needed for pain for up to 60 days. 90 tablet 1 05/25/2024 07/24/2024 Active Comment on above: Take 1 tablet by justin th every 8 hours as needed for pain. Problems Active Problems Problem Classification Problem Date Documented Da te Episodic/Chronic Administrative/social admission (20 sources) Repeated prescription; Translations: [Encounter for issue of repeat prescription] Onset: 2 Episodic Chronic obstructive pulmonary disease and bronchiectasis (20 sources) Bronchiectasis; Translations: [Bronchiectasis, uncomplicated] Onset: 4 12-25-2023 Chronic Coagulation and hemorrhagic disorders (13 sources) Thrombocytopenic disorder; Translations: [Thrombocytopenia, unspecified] 04-24-2023 Chronic Deficiency and other anemia (5 sources) Anemia of chronic disease; Translations: [Anemia in other chronic diseases classified elsewhere] Onset: 7 08-23-2021 Chronic Delirium, dementia, and amnestic and other cognitive disorders (20 sources) Dementia; Translations: [Unspecified dementia without behavioral disturbance] Onset: 3 10-02-2023 Chronic Diseases of white blood cells (19 sources) Leukocytosis; Translations: [Elevated white blood cell count, unspecified] Onset: 4 10-02-2023 Chronic E Codes: Fall (2 sources) Accidental fall ; Translations: [Fall (on) (from) other stairs and steps, initial encounter] Episodic Essential hypertension (20 sources) Benign hypertension; Translations: [Essential (primary) hypertension] Onset: 8 08-23-2021 Chronic Fluid and electrolyte disorders (1 source) Hyperkalemia; Translations: [Hyperkalemia] Episodic Genitourinary symptoms and ill-defined conditions (2 sources) Microscopic hematuria; Translations: [Other microscopic hematuria] Onset: 5 01-04-2025 Episodic Malaise and fatigue (11 sources) Asthenia; Translations: [Other malaise] 04-18-2023 Episodic Malignant neoplasm without specification of site (4 sources) Malignant neoplastic disease; Translations: [Malignant (primary) neoplasm, unspecified] 04-18-2023 Chronic Osteoarthritis (20 sources) Bilateral osteoarthritis of feet; Translations: [Primary osteoarthritis, right ankle and foot] Onset: 3 07-01-2023 Chronic Other connective tissue disease (1 source) History of repair of hip joint; Translations: [Presence of unspecified artificial hip joint] 11-26-2024 Chronic Other connective tissue disease (1 source) Presence of unspecified artificial hip joint; Translations: [Status post hip hemiarthroplasty] Onset: 5 Chronic Other connective tissue disease (15 sources) Rhabdomyolysis; Translations: [Rhabdomyolysis] 04-18-2023 Episodic Other connective tissue disease (10 sources) Rhabdomyolysis; Translations: [Rhabdomyolysis] 04-18-2023 Episodic Other connective tissue disease (2 sources) Repeated falls; Translations: [History of fall] 04-24-2023 Episodic Other connective tissue disease (2 sources) Pain in both feet; Translations: [Pain in right foot] 06-18-2023 Episodic Other connective tissue disease (1 source) Falls; Translations: [Repeated falls] 06-18-2023 Episodic Other fractures (9 sources) Closed fracture sacrum; Translations: [Unspecified fracture of sacrum, initial encounter for closed fracture] 04-18-2023 Episodic Other fractures (3 sources) Unspecified fracture of sacrum, initial encounter for closed fracture; Translations: [Closed fracture of sacrum and coccyx without mention of spinal cord injury] 04-18-2023 Episodic Other fractures (1 source) Multiple fractures of ribs, right side, initial encounter for closed fracture; Translations: [Closed fracture of multiple ribs of right side, initial encounter] Onset: 4 Episodic Other gastrointestinal disorders (3 sources) Diarrhea due to drug; Translations: [Toxic gastroenteritis and colitis] 10-02-2023 Episodic Other hematologic conditions (1 source) Serum total protein abnormal; Translations: [Other specified abnormalities of plasma proteins] 06-22-2023 Episodic Other injuries and conditions due to external causes (1 source) Encounter for examination and observation following other accident; Translations: [Encounter for examination and observation following other accident] Onset: 5 Episodic Other lower respiratory disease (7 sources) Radiologic infiltrate of lung ; Translations: [Other nonspecific abnormal finding of lung field] 04-20-2023 Episodic Other lower respiratory disease (7 sources) Nodule of lung; Translations: [Solitary pulmonary nodule] 04-20-2023 Episodic Other lower respiratory disease (2 sources) Solitary pulmonary nodule; Translations: [Solitary pulmonary nodule] 04-24-2023 Episodic Other lower respiratory disease (1 source) Other nonspecific abnormal finding of lung field; Translations: [Other nonspecific abnormal finding of lung field] 04-24-2023 Episodic Other lower respiratory disease (1 source) Lung mass; Translations: [Other nonspecific abnormal finding of lung field] 06-19-2023 Episodic Other nervous system disorders (14 sources) Chronic pain; Translations: [Other chronic pain] Onset: 4 10-31-2024 Chronic Other non-traumatic joint disorders (1 source) Shoulder pain; Translations: [Pain in left shoulder] Episodic Other non-traumatic joint disorders (2 sources) Hip pain; Translations: [Pain in left hip] Episodic Other non-traumatic joint disorders (2 sources) Acute ankle pain; Translations: [Pain in right ankle and joints of right foot] 06-18-2023 Episodic Other non-traumatic joint disorders (1 source) Pain in left shoulder; Translations: [Pain in joint, shoulder region] 04-17-2023 Episodic Other upper respiratory infections (1 source) Pharyngitis; Translations: [Acute pharyngitis, unspecified] Episodic Romy-; endo-; and myocarditis; cardiomyopathy (except that caused by tuberculosis or sexually transmitted disease) (20 sources) Heart valve disorder; Translations: [Endocarditis, valve unspecified] Onset: 4 12-25-2023 Chronic Residual codes; unclassified (1 source) Bilateral lower limb edema; Translations: [Localized edema] 06-18-2023 Episodic Secondary malignancies (7 sources) Secondary malignant neoplasm of cervical vertebral column; Translations: [Secondary malignant neoplasm of bone] 04-24-2023 Chronic Secondary malignancies (5 sources) Secondary malignant neoplasm of bone; 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] 04-24-2023 Chronic Spondylosis; intervertebral disc disorders; other back problems (20 sources) Cervical spondylosis; Translations: [Spondylosis without myelopathy or radiculopathy, cervical region] Onset: 3 08-23-2021 Chronic Spondylosis; intervertebral disc disorders; other back problems (8 sources) Lumbar radiculopathy; Translations: [Radiculopathy, lumbar region] Onset: 4 Episodic Thyroid disorders (3 sources) Hypothyroidism; Translations: [Hypothyroidism, unspecified] 10-01-2023 Chronic Unclassified (1 source) Other intervertebral disc degeneration, 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; Translations: [Other intervertebral disc degeneration, 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] Onset: Past or Other Problems Problem Classification Problem Date Documented Date Episodic/Chronic Deficiency and other anemia (20 sources) Macrocytic anemia; Translations: [Nutritional anemia, unspecified] Onset: 07-25-2020 08-23-2021 Episodic Deficiency and other anemia (20 sources) Microcytic anemia; Translations: [Iron deficiency anemia, unspecified] Onset: 08-26-2017 Resolved: 07-25-2020 07-25-2020 Episodic Fracture of neck of femur (hip) (20 sources) Fracture of neck of femur; Translations: [Fracture of unspecified part of neck of left femur, initial encounter for closed fracture] Onset: 10-28-2024 10-31-2024 Episodic Immunizations and screening for infectious disease (15 sources) Patient encounter status; Translations: [Encounter for immunization] Onset: 10-28-2024 Episodic Other and unspecified benign neoplasm (20 sources) Benign neoplasm of floor of mouth; Translations: [Benign neoplasm of floor of mouth] Onset: 04-21-2016 08-23-2021 Episodic Other circulatory disease (20 sources) History of transient ischemic attack; Translations: [Personal history of transient ischemic attack (TIA), and cerebral infarction without residual deficits] Onset: 12-14-2023 12-14-2023 Episodic Other connective tissue disease (20 sources) Recurrent falls ; Translations: [Repeated falls] Onset: 10-28-2024 04-20-2023 Episodic Other fractures (20 sources) Fracture of twelfth thoracic vertebra; Translations: [Wedge compression fracture of T11-T12 vertebra, initial encounter for closed fracture] Onset: 07-14-2023 07-14-2023 Episodic Other injuries and conditions due to external causes (20 sources) At risk for falls ; Translations: [History of falling] Onset: 03-11-2024 03-11-2024 Episodic Other injuries and conditions due to external causes (15 sources) H/O: hip fracture; Translations: [Personal history of (healed) traumatic fracture] Onset: 10-28-2024 10-28-2024 Episodic Other lower respiratory disease (20 sources) Multiple nodules of lung; Translations: [Other nonspecific abnormal finding of lung field] Onset: 11-30-2015 08-23-2021 Episodic Other lower respiratory disease (20 sources) Hemoptysis; Translations: [Hemoptysis] Onset: 01-31-2015 Resolved: 05-12-2017 06-27-2015 Episodic Other screening for suspected conditions (not mental disorders or infectious disease) (20 sources) Abnormal radionuclide scan; Translations: [Abnormal results of function studies of other organs and systems] Onset: 06-29-2023 06-18-2023 Episodic Other skin disorders (20 sources) Developmental abnormality of nail; 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] Onset: 04-21-2016 08-23-2021 Episodic Other skin disorders (20 sources) Actinic keratosis; Translations: [Actinic keratosis] Onset: 04-16-2007 Resolved: 11-29-2014 11-29-2014 Episodic Pneumonia (except that caused by tuberculosis or sexually transmitted disease) (20 sources) Right middle zone pneumonia; Translations: [Pneumonia, unspecified organism] Onset: 10-03-2014 Resolved: 06-27-2015 06-27-2015 Episodic Residual codes; unclassified (20 sources) Active living will ; Translations: [Other specified health status] Onset: 08-25-2022 Episodic Residual codes; unclassified (14 sources) Delirium; Translations: [Disorientation, unspecified] Onset: 10-28-2024 10-28-2024 Episodic Residual codes; unclassified (14 sources) Acute pain; Translations: [Pain, unspecified] Onset: 10-28-2024 10-31-2024 Episodic Viral infection (20 sources) Plantar wart of left foot; Translations: [Plantar wart] Onset: 10-15-2009 Resolved: 11-29-2014 11-29-2014 Episodic Results Test Name Value Interpretation Reference Range Facility [facility] 02-21-2025 [facility] Telephone (FAMPWS) -- ANASTACIO PATEL ([id number]) 1940 M Date Time Provider Department 02/21/25 PIERO RBUIN FAMPWS During your visit today, we recorded the following information about you: Piero Rubin MD 02/21/2025 8:42 PM Signed The following approved medication requests have been transmitted electronically. Requested Prescriptions Signed Prescriptions Disp Refills finasteride (PROPECIA) 1 mg tablet 90 tablet 3 Sig: Take 1 tablet by mouth once daily. Authorizing Provider: PIERO RUBIN MD Allergies As of Date: 02/21/2025 (No Known Allergies) Date Reviewed: 01/03/2025 Reviewed by: Ralph Beverly LPN - Fully Assessed Visit Diagnosis:Medication refill [Z76.0] Order(s):finasteride (PROPECIA) 1 mg tabletTake 1 tablet by mouth once daily.Disp: 90 tabletRfl: 3 Prescriptions as of 02/21/2025 - finasteride (PROPECIA) 1 mg tablet Take 1 tablet by mouth once daily. - donepezil (ARICEPT) 10 mg tablet Take 1 tablet by mouth daily at bedtime. - DULoxetine (CYMBALTA) 60 mg capsule Take 1 capsule by mouth once daily. - tiZANidine (ZANAFLEX) 4 mg tablet Take 1 tablet by mouth every 8 hours as needed. - gabapentin (NEURONTIN) 300 mg capsule Take 1 capsule by mouth two times a day for 1 day. - polyethylene glycol 3350 17 gram packet Take 1 Packet by mouth once daily. Dissolve dose in 4 - 8 ounces of liquid and take as directed. - senna-docusate (SENNA-S) 8.6-50 mg per tablet Take 1 tablet by mouth two times a day. - melatonin 3 mg tablet Take 2 tablets by mouth at bedtime as needed for insomnia. - buprenorphine (BUTRANS) 10 mcg/hour Apply 1 Patch as directed one time a week for 1 day. - buprenorphine (BUTRANS) 5 mcg/hour Apply 2 Patches as directed one time a week for 1 day. - Ipratropium [place] (ATROVENT) 21 mcg (0.03 %) nasal spray Use 2 Sprays in the nose every 12 hours. - acetaminophen (TYLENOL EXTRA STRENGTH) 500 mg tablet Take 2 tablets by mouth every 8 hours as needed for pain. - loperamide HCl (IMODIUM) 2 mg tab Take 1 tablet by mouth as needed. For loose stools at [place] - hydrocortisone 2.5 % cream Apply 1 application to affected area twice daily. APPLY TO AFFECTED AREAS - meclizine (ANTIVERT) 25 mg tab Take 1 tablet by mouth every 6 hours as needed (dizziness). - DAILY MULTIVITAMIN TAB Take one(1) tablet daily. 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/21/2016 Microcytic anemia [D50.9] 08/26/2017 07/25/2020 Benign hypertension [I10] 12/30/2017 Osteoarthritis of spine with radiculopathy, lum*05/04/2018 Macrocytic anemia [D53.9] 07/25/2020 Medicare annual wellness visit, subsequent [Z00*08/23/2021 Living will on file at physician's office [Z78.*08/25/2022 Advance directive discussed with patient [Z71.8*08/25/2022 Abnormal radionuclide bone scan [R94.8] 06/29/2023 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, M*07/01/2023 T12 compression fracture, initial encounter (HC*07/14/2023 Dementia (HCC) [F03.90] 10/26/2023 History of recurrent TIAs [Z86.73] 12/14/2023 Bronchiectasis without complication (HCC) [J47.*12/25/2023 Valvular heart disease [I38] 12/25/2023 Risk for falls [Z91.81] 03/11/2024 Closed wedge compression fracture of T12 verteb*10/28/2024 S/p left hip fracture [Z87.81] 10/28/2024 Delirium [R41.0] 10/28/2024 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 Medications Discontinued During This Encounter Prescriptions - finasteride (PROPECIA) 1 mg tablet (Discontinued) Take 1 tablet by mouth once daily. Encounter Status:Closed by PIERO RUBIN on 02/21/25 Normal [facility] Bacteria Ur Culton Bacteria identified Cx Nom (U) ORGANISM ID: 1 <10,000 CFU/ml Mixed microbiota No further workup. Mixed microbiota can be due to???urine???contamination with skin bacteria at time of collection or presence of a long-term urinary catheter. If a new culture is needed, please consider re-education of the patient on proper midstream co llection technique or straight catheterization for???urine???collection. Normal [facility] Comment on above: Performed By: #### 6 30-4 ####[facility] LABCLIA [id number] [place] [address] [place] Urinalysis complete panel (U )on 01-12-2025 Bacteria LM.HPF (Urine sed) [#/Area] Negative Normal Negative [facility] Comment on above: Order Comment: Speci men Type: URINE SPECIMENOrdering Facility: [facility] Address: [address] [place] [address] Performed By: #### 2 4356-8 ####[facility] LABCLIA [id number] [address] [place] [address] [place] Bilirubin Ql (U) Negative Normal Negative [facility] Comment on above: Order Comment: Speci men Type: URINE SPECIMENOrdering Facility: [facility] Address: [address] [place] [address] Performed By: #### 2 4356-8 ####[facility] LABCLIA [id number] [address], [facility] [place] Clarity (Unsp spec) Clear Normal Clear [facility] Comment on above: Order Comment: Speci men Type: URINE SPECIMENOrdering Facility: [facility] Address: [address] [place] [address] Performed By: #### 2 4356-8 ####[facility] LABCLIA [id number] [address], [facility] [place] Color (U) Yellow Normal Yellow [facility] Comment on above: Order Comment: Speci men Type: URINE SPECIMENOrdering Facility: [facility] Address: [address] [place] [address] Performed By: #### 2 4356-8 ####[facility] LABCLIA [id number] [address], [facility] [place] Epithelial cells LM.HPF (Urine sed) [#/Area] None Seen Normal [facility] Comment on above: Order Comment: Speci men Type: URINE SPECIMENOrdering Facility: [facility] Address: [address] [place] [address] Performed By: #### 2 4356-8 ####[facility] LABCLIA [id number] [facility] [address] [place] [address] [place] Glucose Test strip (U) [Mass/Vol] Negative Normal Negative [facility] Comment on above: Order Comment: Speci men Type: URINE SPECIMENOrdering Facility: [facility] Address: [address] [place] [address] Performed By: #### 2 4356-8 ####[facility] LABCLIA [id number] [address] [place] [address] [place] Hemoglobin Ql (U) Negative Normal Negative [facility] Comment on above: Order Comment: Speci men Type: URINE SPECIMENOrdering Facility: [facility] Address: [address] [place] [address] Performed By: #### 2 4356-8 ####[facility] LABCLIA [id number] [place] [address] [place] Hyaline casts (Urine sed) [#/Area] 1-3 /LPF Abnormal 0 /LPF [facility] Comment on above: Order Comment: Speci men Type: URINE SPECIMENOrdering Facility: [facility] Address: [address] [place] [address] Performed By: #### 2 4356-8 ####[facility] LABCLIA [id number] [place] [address] [place] Ketones Ql (U) Negative Normal Negative [facility] Comment on above: Order Comment: Speci men Type: URINE SPECIMENOrdering Facility: [facility] Address: [address] [place] [address] Performed By: #### 2 4356-8 ####[facility] LABCLIA [id number] [address], [facility] [place] Leukocyte esterase Test strip Ql (U) Negative Normal Negative [facility] Comment on above: Order Comment: Speci men Type: URINE SPECIMENOrdering Facility: [facility] Address: [address] [place] [address] Performed By: #### 2 4356-8 ####[facility] LABCLIA [id number] [address], [facility] [place] Nitrite Ql (U) Negative Normal Negative [facility] Comment on above: Order Comment: Speci men Type: URINE SPECIMENOrdering Facility: [facility] Address: [address] [place] [address] Performed By: #### 2 4356-8 ####[facility] LABIA [id number] [place] [address] [place] pH (U) 5.5 [pH] Normal <8.5 [facility] Comment on above: Order Comment: Speci men Type: URINE SPECIMENOrdering Facility: [facility] Address: [address] [place] [address] Performed By: #### 2 4356-8 ####[facility] LABIA [id number] [place] [address] [place] Protein (U) [Mass/Vol] Negative Normal Negative [facility] Comment on above: Order Comment: Speci men Type: URINE SPECIMENOrdering Facility: [facility] Address: [address] [place] [address] Performed By: #### 2 4356-8 ####[facility] LABIA [id number] [place] [address] [place] RBC LM.HPF (Urine sed) [#/Area] 0-2 /HPF Normal 0-2 /HPF [facility] Comment on above: Order Comment: Speci men Type: URINE SPECIMENOrdering Facility: [facility] Address: [address] [place] [address] Performed By: #### 2 4356-8 ####[facility] LABIA [id number] [place] [address] [place] Specific gravity (U) [Rel density] 1.011 Normal 1.005-1.03 0 [facility] Comment on above: Order Comment: Speci men Type: URINE SPECIMENOrdering Facility: [facility] Address: [address] [place] [address] Performed By: #### 2 4356-8 ####[facility] LABIA [id number] [place] [address] [place] Urobilinogen Ql (U) 0.2 EU/dL Normal 0.2-1.0 EU/dL [facility] Comment on above: Order Comment: Speci men Type: URINE SPECIMENOrdering Facility: [facility] Address: [address] [place] [address] Performed By: #### 2 4356-8 ####[facility] LABIA [id number] [place] [address] [place] WBC LM.HPF (Urine sed) [#/Area] 0-5 /HPF Normal 0-5 /HPF [facility] Comment on above: Order Comment: Speci men Type: URINE SPECIMENOrdering Facility: [facility] Address: [address] [place] [address] Performed By: #### 2 4356-8 ####[facility] LABIA [id number] [place] [address] [place] CNPYvonne 01-04-2025 [facility] -- ANASTACIO PATEL ([id number]) 1940 M Date Time Provider Department 01/04[facility] today, we recorded the following information about you: Cherrie Qureshi, MICHAEL 01/04/2025 2:40 PM Edna Azar with [facility] OT calling to request information regarding patient for continuity of care. Information given. Nissa also states pt's BP during OT visit this morning was 164/85, pulse 71. Asymptomatic. Pt residing at [facility] at this time and Nissa states she will report BP to facility nurse. Cherrie Qureshi RN Allergies As of Date: 01/04/2025 (No Known Allergies) Date Reviewed: 01/03/2025 Reviewed by: Ralph Beverly LPN - Fully Assessed Reason for Visit: Patient Update [1234] Prescriptions as of 01/04/2025 - donepezil (ARICEPT) 10 mg tablet Take 1 tablet by mouth daily at bedtime. - DULoxetine (CYMBALTA) 60 mg capsule Take 1 capsule by mouth once daily. - tiZANidine (ZANAFLEX) 4 mg tablet Take 1 tablet by mouth every 8 hours as needed. - gabapentin (NEURONTIN) 300 mg capsule Take 1 capsule by mouth two times a day for 1 day. - polyethylene glycol 3350 17 gram packet Take 1 Packet by mouth once daily. Dissolve dose in 4 - 8 ounces of liquid and take as directed. - senna-docusate (SENNA-S) 8.6-50 mg per tablet Take 1 tablet by mouth two times a day. - melatonin 3 mg tablet Take 2 tablets by mouth at bedtime as needed for insomnia. - buprenorphine (BUTRANS) 10 mcg/hour Apply 1 Patch as directed one time a week for 1 day. - buprenorphine (BUTRANS) 5 mcg/hour Apply 2 Patches as directed one time a week for 1 day. - finasteride (PROPECIA) 1 mg tablet Take 1 tablet by mouth once daily. - Ipratropium [place] (ATROVENT) 21 mcg (0.03 %) nasal spray Use 2 Sprays in the nose every 12 hours. - acetaminophen (TYLENOL EXTRA STRENGTH) 500 mg tablet Take 2 tablets by mouth every 8 hours as needed for pain. - loperamide HCl (IMODIUM) 2 mg tab Take 1 tablet by mouth as needed. For loose stools at [place] - hydrocortisone 2.5 % cream Apply 1 application to affected area twice daily. APPLY TO AFFECTED AREAS - meclizine (ANTIVERT) 25 mg tab Take 1 tablet by mouth every 6 hours as needed (dizziness). - DAILY MULTIVITAMIN TAB Take one(1) tablet daily. 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 Microcytic anemia [D50.9] 08/26/2017 07/25/2020 Benign hypertension [I10] 12/30/2017 Osteoarthritis of spine with radiculopathy, lum*05/04/2018 Macrocytic anemia [D53.9] 07/25/2020 Medicare annual wellness visit, subsequent [Z00*08/23/2021 Living will on file at physician's office [Z78.*08/25/2022 Advance directive discussed with patient [Z71.8*08/25/2022 Abnormal radionuclide bone scan [R94.8] 06/29/2023 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, M*07/01/2023 T12 compression fracture, initial encounter (HC*07/14/2023 Dementia (HCC) [F03.90] 10/26/2023 History of recurrent TIAs [Z86.73] 12/14/2023 Bronchiectasis without complication (HCC) [J47.*12/25/2023 Valvular heart disease [I38] 12/25/2023 Risk for falls [Z91.81] 03/11/2024 Closed wedge compression fracture of T12 verteb*10/28/2024 S/p left hip fracture [Z87.81] 10/28/2024 Delirium [R41.0] 10/28/2024 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] 10/28/2024 Frequent falls [R29.6] 10/28/2024 Acute pain [R52] 10/28/2024 Other chronic pain [G89.29] 10/28/2024 Encounter for pain management [R52] 10/28/2024 Left displaced femoral neck fracture (HCC) [S72*10/28/2024 Leukocytosis [D72.829] 10/31/2024 Elevated serum creatinine [R79.89] 11/01/2024 Encounter Status:Closed by CHERRIE QURESHI on 01/04/25 Normal [facility] CBC W Auto Differential pane l (Bld)on 01-03-2025 Basophils (Bld) [#/Vol] 0.06 10*3/uL [facility] Basophils/100 WBC (Bld) 1 % C [facility] Differential cell count method Nom (Bld) Auto [facility] Eosinophils (Bld) [#/Vol] 0.18 10*3/uL [facility] Eosinophils/100 WBC (Bld) 3.1 % [facility] Erythrocyte distribution width (RBC) [Ratio] 15.9 % High 11.5 - 15.0 % [facility] Hematocrit (Bld) [Volume fraction] 37.5 % Low 39.0 - 51.0 % [facility] Hemoglobin (Bld) [Mass/Vol] 12 g/dL Low 13.0 - 17.0 g/dL [facility] Immature granulocytes (Bld) [#/Vol] [facility] Immature granulocytes/100 WBC (Bld) 0.2 % [facility] Interpretation and review of laboratory results Abnormal [facility] Lymphocytes (Bld) [#/Vol] 1.69 10*3/uL [facility] Lymphocytes/100 WBC (Bld) 29.1 % [facility] MCH (RBC) [Entitic mass] 32.9 pg 26. 0 - 34.0 pg [facility] MCHC (RBC) [Mass/Vol] 32 g/dL 30.5 - 36.0 g/dL [facility] MCV (RBC) [Entitic vol] 102.7 fL High 80.0 - 100.0 fL [facility] Monocytes (Bld) [#/Vol] 0.89 10*3/uL High [facility] Monocytes/100 WBC (Bld) 15.3 % C [facility] Neutrophils (Bld) [#/Vol] 2.98 10*3/uL [facility] Neutrophils/100 WBC (Bld) 51.3 % [facility] Nucleated RBC (Bld) [#/Vol] NINF [facility] Nucleated RBC/100 WBC (Bld) [Ratio] 0 % /100 WBC [facility] Platelet mean volume (Bld) [Entitic vol] 11.5 fL 9.0 - 12.7 fL [facility] Platelets (Bld) [#/Vol] 243 10*3/uL [facility] RBC (Bld) [#/Vol] 3.65 10*6/uL Low 4.20 - 6.00 m/uL [facility] WBC (Bld) [#/Vol] 5.81 10*3/uL [facility] Basophils (Bld) [#/Vol] 0.06 10*3/uL Normal <0.11 [facility] Comment on above: Order Comment: Speci men Type: BLOOD SPECIMENOrdering Facility: [facility] Address: [address] [place] [address] Performed By: #### 5 7021-8 ####[facility] LABCLIA [id number] [place] [address] [place] Basophils/100 WBC (Bld) 1.0 % Normal [facility] Comment on above: Order Comment: Speci men Type: BLOOD SPECIMENOrdering Facility: [facility] Address: [address] [place] [address] Performed By: #### 5 7021-8 ####[facility] LABCLIA [id number] [place] [address] [place] Differential cell count method Nom (Bld) Auto Normal [facility] Comment on above: Order Comment: Speci men Type: BLOOD SPECIMENOrdering Facility: [facility] Address: [address] [place] [address] Performed By: #### 5 7021-8 ####[facility] LABCLIA [id number] [place] [address] [place] Eosinophils (Bld) [#/Vol] 0.18 10*3/uL Normal <0.46 [facility] Comment on above: Order Comment: Speci men Type: BLOOD SPECIMENOrdering Facility: [facility] Address: [address] [place] [address] Performed By: #### 5 7021-8 ####[facility] LABCLIA [id number] [place] [address] [place] Eosinophils/100 WBC (Bld) 3.1 % Normal [facility] Comment on above: Order Comment: Speci men Type: BLOOD SPECIMENOrdering Facility: [facility] Address: [address] [place] [address] Performed By: #### 5 7021-8 ####[facility] LABCLIA [id number] [place] [address] [place] Erythrocyte distribution width (RBC) [Ratio] 15.9 % High 11.5-15.0 [facility] Comment on above: Order Comment: Speci men Type: BLOOD SPECIMENOrdering Facility: [facility] Address: [address] [place] [address] Performed By: #### 5 7021-8 ####[facility] LABCLIA [id number] [place] [address] [place] Hematocrit (Bld) [Volume fraction] 37.5 % Low 39.0-51.0 [facility] Comment on above: Order Comment: Speci men Type: BLOOD SPECIMENOrdering Facility: [facility] Address: [address] [place] [address] Performed By: #### 5 7021-8 ####[facility] LABCLIA [id number] [place] [address] [place] Hemoglobin (Bld) [Mass/Vol] 12.0 g/dL Low 13.0-17.0 [facility] Comment on above: Order Comment: Speci men Type: BLOOD SPECIMENOrdering Facility: [facility] Address: [address] [place] [address] Performed By: #### 5 7021-8 ####[facility] LABCLIA [id number] [place] [address] [place] Immature granulocytes (Bld) [#/Vol] 10*3/uL Normal <0.10 [facility] Comment on above: Order Comment: Speci men Type: BLOOD SPECIMENOrdering Facility: [facility] Address: [address] [place] [address] Performed By: #### 5 7021-8 ####[facility] LABCLIA [id number] [place] [address] [place] Immature granulocytes/100 WBC (Bld) 0.2 % Normal [facility] Comment on above: Order Comment: Speci men Type: BLOOD SPECIMENOrdering Facility: [facility] Address: [address] [place] [address] Performed By: #### 5 7021-8 ####[facility] LABCLIA [id number] [place] [address] [place] Lymphocytes (Bld) [#/Vol] 1.69 10*3/uL Normal 1.00-4.00 [facility] Comment on above: Order Comment: Speci men Type: BLOOD SPECIMENOrdering Facility: [facility] Address: [address] [place] [address] Performed By: #### 5 7021-8 ####[facility] LABCLIA [id number] [place] [address] [place] Lymphocytes/100 WBC (Bld) 29.1 % Normal [facility] Comment on above: Order Comment: Speci men Type: BLOOD SPECIMENOrdering Facility: [facility] Address: [address] [place] [address] Performed By: #### 5 7021-8 ####[facility] LABCLIA [id number] [place] [address] [place] MCH (RBC) [Entitic mass] 32.9 pg Normal 26.0-34.0 [facility] Comment on above: Order Comment: Speci men Type: BLOOD SPECIMENOrdering Facility: [facility] Address: [address] [place] [address] Performed By: #### 5 7021-8 ####[facility] LABCLIA [id number] [place] [address] [place] MCHC (RBC) [Mass/Vol] 32.0 g/dL Normal 30.5-36.0 [facility] Comment on above: Order Comment: Speci men Type: BLOOD SPECIMENOrdering Facility: [facility] Address: [address] [place] [address] Performed By: #### 5 7021-8 ####[facility] LABCLIA [id number] [place] [address] [place] MCV (RBC) [Entitic vol] 102.7 fL High 80.0-100.0 C [facility] Comment on above: Order Comment: Speci men Type: BLOOD SPECIMENOrdering Facility: [facility] Address: [address] [place] [address] Performed By: #### 5 7021-8 ####[facility] LABIA [id number] [place] [address] [place] Monocytes (Bld) [#/Vol] 0.89 10*3/uL High <0.87 [facility] Comment on above: Order Comment: Speci men Type: BLOOD SPECIMENOrdering Facility: [facility] Address: [address] [place] [address] Performed By: #### 5 7021-8 ####[facility] LABCLIA [id number] [place] [address] [place] Monocytes/100 WBC (Bld) 15.3 % Normal C [facility] Comment on above: Order Comment: Speci men Type: BLOOD SPECIMENOrdering Facility: [facility] Address: [address] [place] [address] Performed By: #### 5 7021-8 ####[facility] LABCLIA [id number] [place] [address] [place] Neutrophils (Bld) [#/Vol] 2.98 10*3/uL Normal 1.45-7.50 [facility] Comment on above: Order Comment: Speci men Type: BLOOD SPECIMENOrdering Facility: [facility] Address: [address] [place] [address] Performed By: #### 5 7021-8 ####[facility] LABCLIA [id number] [place] [address] [place] Neutrophils/100 WBC (Bld) 51.3 % Normal [facility] Comment on above: Order Comment: Speci men Type: BLOOD SPECIMENOrdering Facility: [facility] Address: [address] [place] [address] Performed By: #### 5 7021-8 ####[facility] LABCLIA [id number] [place] [address] [place] Nucleated RBC (Bld) [#/Vol] 10*3/uL Normal <0.01 [facility] Comment on above: Order Comment: Speci men Type: BLOOD SPECIMENOrdering Facility: [facility] Address: [address] [place] [address] Performed By: #### 5 7021-8 ####[facility] LABCLIA [id number] [place] [address] [place] Nucleated RBC/100 WBC (Bld) [Ratio] 0.0 /100 WBC Normal [facility] Comment on above: Order Comment: Speci men Type: BLOOD SPECIMENOrdering Facility: [facility] Address: [address] [place] [address] Performed By: #### 5 7021-8 ####[facility] LABCLIA [id number] [place] [address] [place] Platelet mean volume (Bld) [Entitic vol] 11.5 fL Normal 9.0-12.7 [facility] Comment on above: Order Comment: Speci men Type: BLOOD SPECIMENOrdering Facility: [facility] Address: [address] [place] [address] Performed By: #### 5 7021-8 ####[facility] LABIA [id number] [place] [address] [place] Platelets (Bld) [#/Vol] 243 10*3/uL Normal 150-400 [facility] Comment on above: Order Comment: Speci men Type: BLOOD SPECIMENOrdering Facility: [facility] Address: [address] [place] [address] Performed By: #### 5 7021-8 ####[facility] LABIA [id number] [place] [address] [place] RBC (Bld) [#/Vol] 3.65 10*6/uL Low 4.20-6.00 [facility] Comment on above: Order Comment: Speci men Type: BLOOD SPECIMENOrdering Facility: [facility] Address: [address] [place] [address] Performed By: #### 5 7021-8 ####[facility] LABIA [id number] [place] [address] [place] WBC (Bld) [#/Vol] 5.81 10*3/uL Normal 3.70-11.00 [facility] Comment on above: Order Comment: Speci men Type: BLOOD SPECIMENOrdering Facility: [facility] Address: [address] [place] [address] Performed By: #### 5 7021-8 ####[facility] LABIA [id number] [place] [address] [place] CNOVon 01-03-2025 CNOV Office Visit (FAMPWS ) -- ANASTACIO PATEL ([id number]) 1940 M Date Time Provider Department 01/03/25 9:40 AM INES CHATTERJEE During your visit today, we recorded the following information about you: Temperature Pulse Respiration Blood pressure 97.6 degrees 69/minute 16/minute 138/80 Weight 47.8 kg Ines Chatterjee PA-C 01/03/2025 11:15 AM Signed Anastacio Patel is a 85 year old male here for a Medicare wellness visit. Medicare Health Risk Assessment General Health Poor Exercise: Minutes/Day walking Exercise: Days/Week 7 Alcohol: Daily Use no Alcohol: Drinks/Day 0 Alcohol: 6 or more drinks never Feel off balance no Concerns: Teeth/Dentures no Concerns: Sexual function no Troubled by feelings no Frequency: Eating healthy diet sometimes ADLs requiring help No- help with driving Safety precautions in home/vehicle yes Smoke, vape, chews tobacco no Difficulty hearing yes Difficulty seeing no Current Providers Specialists: I have reviewed specialist-related care of the patient in the medical record. Medical/Family history review Reviewed and updated problem list, medical/surgical/family/so cial history, medications, and allergies. Opioid use review Opioid Medications (last 90 days) 11/09/2024 00:00 11/28/2024 23:59 12/20/2024 23:59 Opioid Medications buprenorphine 1 Patch 1/WK TRANSDERM. 1 Patch 1/WK TRANSDERM. -Rx End buprenorphine 2 Patch 1/WK TRANSDERM. -Rx End 2 Patch 1/WK TRANSDERM. - Details Outpatient prescription Medication marked as long-term Anxiety/Depression screening PHQ-2 Score: 0 (Lower risk for depression) Recommendation: no further intervention at this time Cognitive screening Cognitive screening reviewed and Patient has known cognitive impairment. Functional Observation Was the patient's Timed Up AND Go test unsteady or >= 12 seconds? No Advance Care Planning Surrogate decision maker and/or advance care plan documented Measurements BP 138/80 (BP Site: Left Arm, BP Position: Sitting, BP Cuff Size: Regular Adult) Pulse 69 Temp 36.4 ?C (97.6 ?F) Resp 16 Wt 47.8 kg (105 lb 6 oz) SpO2 96% BMI 16.02 kg/m? Vision Screening: Follows with optometry/ophthalmology Assessment/Plan Medicare annual wellness visit, subsequent (Z00.00) - Counseled on healthy diet and regular exercise - Fall avoidance information provided - Personalized prevention plan provided Chief Complaint Patient presents with: Medicare Wellness Exam HPI Anastacio Patel is a 85 year old male who presents here today for extensive exam. 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 Denies concerns for me today. Still at [place] [employer]. States he's getting some therapy due to recent hip fracture and surgery. Past medical history, appointments, medications, allergies reviewed. 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 Previous Surgical History PAST SURGICAL HISTORY Procedure Laterality Date APPENDECTOMY COLONOSCOPY FLX DX W/COLLJ SPEC WHEN PFRMD 03/24/2006 Repeat in COLONOSCOPY FLX DX W/COLLJ SPEC WHEN PFRMD 06/09/2016 Colonoscopy ESOPHAGOGASTRODUODENOSCOPY TRANSORAL DIAGNOSTIC 11/02/2017 EGD HEMORRHOIDECTOMY NTRNL AND XTRNL 1 COLUMN/GROUP HIP SURGERY HX Left 10/28/2024 SPLENECTOMY TOTAL SEPARATE PROCEDURE Splenectomy Family History FAMILY HISTORY Problem Relation Age of Onset Alzheimer's Disease Father Cancer Son Testicular cancer(2004). Multiple Sclerosis Brother 01/2017, age 76. Patient Allergies ALLERGIES No Known Allergies Current Medications Current Outpatient Medications on File Prior to Visit Medication Sig donepezil (ARICEPT) 10 mg tablet Take 1 tablet by mouth daily at bedtime. DULoxetine (CYMBALTA) 60 mg capsule Take 1 capsule by mouth once daily. tiZANidine (ZANAFLEX) 4 mg tablet Take 1 tablet by mouth every 8 hours as needed. gabapentin (NEURONTIN) 300 mg capsule Take 1 capsule by mouth two times (more content not included)... Normal [facility] Comprehensive metabolic 2000 panelon 01-03-2025 Albumin [Mass/Vol] 4.3 g/dL Normal 3.9-4.9 [facility] Comment on above: Order Comment: Speci men Type: BLOOD SPECIMENOrdering Facility: [facility] Address: [address] [place] [address] Performed By: #### 2 4323-8, LIPNF ####[facility] LABCLIA [id number] [place] [address] [place] ALP [Catalytic activity/Vol] 103 U/L Normal 38-113 [facility] Comment on above: Order Comment: Speci men Type: BLOOD SPECIMENOrdering Facility: [facility] Address: [address] [place] [address] Performed By: #### 2 4323-8, LIPNF ####[facility] LABCLIA [id number] [place] [address] [place] ALT [Catalytic activity/Vol] 20 U/L Normal 10-54 [facility] Comment on above: Order Comment: Speci men Type: BLOOD SPECIMENOrdering Facility: [facility] Address: [address] [place] [address] Performed By: #### 2 4323-8, LIPNF ####[facility] LABCLIA [id number] [place] [address] [place] Anion gap [Moles/Vol] 10 mmol/L Normal 8-15 [facility] Comment on above: Order Comment: Speci men Type: BLOOD SPECIMENOrdering Facility: [facility] Address: [address] [place] [address] Performed By: #### 2 4323-8, LIPNF ####[facility] LABCLIA [id number] [place] [address] [place] AST [Catalytic activity/Vol] 26 U/L Normal 14-40 [facility] Comment on above: Order Comment: Speci men Type: BLOOD SPECIMENOrdering Facility: [facility] Address: [address] [place] [address] Performed By: #### 2 4323-8, LIPNF ####[facility] LABCLIA [id number] [place] [address] [place] Bilirubin [Mass/Vol] 0.4 mg/dL Normal 0.2-1.3 [facility] Comment on above: Order Comment: Speci men Type: BLOOD SPECIMENOrdering Facility: [facility] Address: [address] [place] [address] Performed By: #### 2 4323-8, LIPNF ####[facility] LABCLIA [id number] [place] [address] [place] Calcium [Mass/Vol] 9.5 mg/dL Normal 8.5-10.2 [facility] Comment on above: Order Comment: Speci men Type: BLOOD SPECIMENOrdering Facility: [facility] Address: [address] [place] [address] Performed By: #### 2 4323-8, LIPNF ####[facility] LABCLIA [id number] [place] [address] [place] Chloride [Moles/Vol] 104 mmol/L Normal 98-107 [facility] Comment on above: Order Comment: Speci men Type: BLOOD SPECIMENOrdering Facility: [facility] Address: [address] [place] [address] Performed By: #### 2 4323-8, LIPNF ####[facility] LABCLIA [id number] [place] [address] [place] CO2 [Moles/Vol] 28 mmol/L Normal 22-30 [facility] Comment on above: Order Comment: Speci men Type: BLOOD SPECIMENOrdering Facility: [facility] Address: [address] [place] [address] Performed By: #### 2 4323-8, LIPNF ####[facility] LABCLIA [id number] [place] [address] [place] Creatinine [Mass/Vol] 1.15 mg/dL Normal 0.73-1.22 [facility] Comment on above: Order Comment: Speci men Type: BLOOD SPECIMENOrdering Facility: [facility] Address: [address] [place] [address] Performed By: #### 2 4323-8, LIPNF ####[facility] LABIA [id number] [place] [address] [place] Creatinine and Glomerular filtration rate.predicted panel (S/P/Bld) 62 mL/min/1.73m??? Normal >=60 [facility] Comment on above: Order Comment: Speci men Type: BLOOD SPECIMENOrdering Facility: [facility] Address: [address] [place] [address] Result Comment: Lilly mated Glomerular Filtration Rate (eGFR) is calculated using the 2020 CKD-EPI creatinine equation. This equation utilizes serum creatinine, sex, and age as parameters. The creatinine assay has traceable calibration to isotope dilution-mass spectrometry. Refer to KDIGO guidelines for clinical interpretation. In patients with unstable renal function, e.g. those with acute kidney injury, the eGFR may not accurately reflect actual GFR. Performed By: #### 2 4323-8, LIPNF ####[facility] LABCLIA [id number] [place] [address] [place] Glucose [Mass/Vol] 65 mg/dL Low 74-99 [facility] Comment on above: Order Comment: Speci men Type: BLOOD SPECIMENOrdering Facility: [facility] Address: [address] [place] [address] Result Comment: The [place] Diabetes Association (ADA) provides guidance for cutoff values for fasting glucose and random glucose. The ADA defines fasting as no caloric intake for at least 8 hours. Fasting plasma glucose results between 100 to 125 mg/dL indicate increased risk for diabetes (prediabetes). Fasting plasma glucose results greater than or equal to 126 mg/dL meet the criteria for diagnosis of diabetes. In the absence of unequivocal hyperglycemia, results should be confirmed by repeat testing. In a patient with classic symptoms of hyperglycemia or hyperglycemic crisis, random plasma glucose results greater than or equal to 200 mg/dL meet the criteria for diagnosis of diabetes. Reference: Standards of Medical Care in Diabetes 2016, [place] Diabetes Association. Diabetes Care. 2016.39(Suppl 1). Performed By: #### 2 4323-8, LIPNF ####[facility] LABCLIA [id number] [place] [address] [place] Potassium [Moles/Vol] 4.2 mmol/L Normal 3.7-5.1 [facility] Comment on above: Order Comment: Speci men Type: BLOOD SPECIMENOrdering Facility: [facility] Address: [address] [place] [address] Performed By: #### 2 4323-8, LIPNF ####[facility] LABCLIA [id number] [place] [address] [place] Protein [Mass/Vol] 7.2 g/dL Normal 6.3-8.0 [facility] Comment on above: Order Comment: Speci men Type: BLOOD SPECIMENOrdering Facility: [facility] Address: [address] [place] [address] Performed By: #### 2 4323-8, LIPNF ####[facility] LABCLIA [id number] [place] [address] [place] Sodium [Moles/Vol] 142 mmol/L Normal 136-144 [facility] Comment on above: Order Comment: Speci men Type: BLOOD SPECIMENOrdering Facility: [facility] Address: [address] [place] [address] Performed By: #### 2 4323-8, LIPNF ####[facility] LABCLIA [id number] [place] [address] [place] Urea nitrogen [Mass/Vol] 15 mg/dL Normal 9-24 [facility] Comment on above: Order Comment: Speci men Type: BLOOD SPECIMENOrdering Facility: [facility] Address: [address] [place] [address] Performed By: #### 2 4323-8, LIPNF ####[facility] LABCLIA [id number] [place] [address] [place] LIPID PANEL, NONFASTINGon Cholesterol [Mass/Vol] 206 mg/dL High <200 [facility] Comment on above: Order Comment: Speci men Type: BLOOD SPECIMENOrdering Facility: [facility] Address: [address] [place] [address] Result Comment: <200 mg/dL, Desirable 200-239 mg/dL, Borderline high >239 mg/dL, High Performed By: #### 2 4323-8, LIPNF ####[facility] LABCLIA [id number] [place] [address] [place] HDL CHOLESTEROL, NF 106 mg/dL Normal >39 [facility] Comment on above: Order Comment: Speci men Type: BLOOD SPECIMENOrdering Facility: [facility] Address: [address] [place] [address] Result Comment: 40-5 9 mg/dL, Acceptable >59 mg/dL, High: Negative risk factor for coronary heart disease <40 mg/dL, Low: Positive risk factor for coronary heart disease Performed By: #### 2 4323-8, LIPNF ####[facility] LABCLIA [id number] [place] [address] [place] LDL CHOLESTEROL, NF 85 mg/dL Normal <100 [facility] Comment on above: Order Comment: Speci men Type: BLOOD SPECIMENOrdering Facility: [facility] Address: [address] [place] [address] Result Comment: <100 mg/dL, Optimal 100-129 mg/dL, Near optimal/above optimal 130-159 mg/dL, Borderline high 160-189 mg/dL, High >189 mg/dL, Very high Secondary prevention optimal LDL Cholesterol levels are recommended to be < 70 mg/dL Performed By: #### 2 4323-8, LIPNF ####[facility] LABCLIA [id number] [address] [place] LDL/HDL RATIO, NF 0.80 mg/dL Normal <2.54 [facility] Comment on above: Order Comment: Shakir men Type: BLOOD SPECIMENOrdering Facility: [facility] Address: [address] [place] [address] Result Comment: Refe rence: 1. National Cholesterol Education Program ATP III Guideline At-A-Glance Quick Desk Reference: National Heart, Lung, and Blood [place]. National Institutes of Health. 2001: NIH Publication No. 01-3305. 2. An International Atherosclerosis Society position paper: global recommendations for the management of dyslipidemia: executive summary, Atherosclerosis. 2014: 232(2):410-413. Performed By: #### 2 4323-8, LIPNF ####[facility] LABCLIA [id number] [place] [address] [place] NON HDL CHOL, NF 100 mg/dL Normal <130 [facility] Comment on above: Order Comment: Shakir jill Type: BLOOD SPECIMENOrdering Facility: [facility] Address: [address] [place] [address] Result Comment: <130 mg/dL, Optimal 130-159 mg/dL, Near optimal/above optimal 160-189 mg/dL, Borderline high 190-219 mg/dL, High >219 mg/dL, Very high Secondary prevention optimal non HDL Cholesterol levels are recommended to be <100 mg/dL Performed By: #### 2 4323-8, LIPNF ####[facility] LABCLIA [id number] [place] [address] [place] T CHOL/HDL RATIO NF 1.94 mg/dL Normal <5.10 [facility] Comment on above: Order Comment: Speci men Type: BLOOD SPECIMENOrdering Facility: [facility] Address: [address] [place] [address] Performed By: #### 2 4323-8, LIPNF ####[facility] LABCLIA [id number] [place] [address] [place] TRIGLYCERIDES, NF 76 mg/dL Normal <150 [facility] Comment on above: Order Comment: Speci men Type: BLOOD SPECIMENOrdering Facility: [facility] Address: [address] [place] [address] Result Comment: <150 mg/dL, Normal 150-199 mg/dL, Borderline high 200-499 mg/dL, High >499 mg/dL, Very high Performed By: #### 2 4323-8, LIPNF ####[facility] LABCLIA [id number] [place] [address] [place] VLDL CHOLESTEROL, NF 15 mg/dL Normal <30 [facility] Comment on above: Order Comment: Speci men Type: BLOOD SPECIMENOrdering Facility: [facility] Address: [address] [place] [address] Performed By: #### 2 4323-8, LIPNF ####[facility] LABCLIA [id number] [place] [address] [place] Urinalysis complete panel (U )on 01-03-2025 Bacteria LM.HPF (Urine sed) [#/Area] Negative Normal Negative [facility] Comment on above: Order Comment: Speci men Type: URINE SPECIMENOrdering Facility: [facility] Address: [address] [place] [address] Performed By: #### 2 4356-8 ####[facility] LABCLIA [id number] [address] [id number] [address] [place] Bilirubin Ql (U) 1+ Abnormal Negative [facility] Comment on above: Order Comment: Speci men Type: URINE SPECIMENOrdering Facility: [facility] Address: [address] [place] [address] Result Comment: Sugg est correlation with clinical findings and serum bilirubin if clinically indicated. Performed By: #### 2 4356-8 ####[facility] LABCLIA [id number] [place] [address] [place] CALCIUM OXALATE CRYSTALS (UA) Few Abnormal None Seen [facility] Comment on above: Order Comment: Speci men Type: URINE SPECIMENOrdering Facility: [facility] Address: [address] [place] [address] Performed By: #### 2 4356-8 ####[facility] LABCLIA [id number] [place] [address] [place] Clarity (Unsp spec) Clear Normal Clear [facility] Comment on above: Order Comment: Speci men Type: URINE SPECIMENOrdering Facility: [facility] Address: [address] [place] [address] Performed By: #### 2 4356-8 ####[facility] LABCLIA [id number] [place] [address] [place] Color (U) Dark Yellow Abnormal Yellow [facility] Comment on above: Order Comment: Speci men Type: URINE SPECIMENOrdering Facility: [facility] Address: [address] [place] [address] Performed By: #### 2 4356-8 ####[facility] LABCLIA [id number] [place] [address] [place] Epithelial cells LM.HPF (Urine sed) [#/Area] None Seen Normal [facility] Comment on above: Order Comment: Speci men Type: URINE SPECIMENOrdering Facility: [facility] Address: [address] [place] [address] Performed By: #### 2 4356-8 ####[facility] LABCLIA [id number] [place] [address] [place] Glucose Test strip (U) [Mass/Vol] Negative Normal Negative [facility] Comment on above: Order Comment: Speci men Type: URINE SPECIMENOrdering Facility: [facility] Address: [address] [place] [address] Performed By: #### 2 4356-8 ####[facility] LABCLIA [id number] [place] [address] [place] Hemoglobin Ql (U) Negative Normal Negative [facility] Comment on above: Order Comment: Speci men Type: URINE SPECIMENOrdering Facility: [facility] Address: [address] [place] [address] Performed By: #### 2 4356-8 ####[facility] LABCLIA [id number] [place] [address] [place] Hyaline casts (Urine sed) [#/Area] /[LPF] Abnormal 0 /LPF [facility] Comment on above: Order Comment: Speci men Type: URINE SPECIMENOrdering Facility: [facility] Address: [address] [place] [address] Performed By: #### 2 4356-8 ####[facility] LABCLIA [id number] [place] [address] [place] Ketones Ql (U) Trace Abnormal Negative [facility] Comment on above: Order Comment: Speci men Type: URINE SPECIMENOrdering Facility: [facility] Address: [address] [place] [address] Performed By: #### 2 4356-8 ####[facility] LABCLIA [id number] [place] [address] [place] Leukocyte esterase Test strip Ql (U) Negative Normal Negative [facility] Comment on above: Order Comment: Speci men Type: URINE SPECIMENOrdering Facility: [facility] Address: [address] [place] [address] Performed By: #### 2 4356-8 ####[facility] LABCLIA [id number] [place] [address] [place] Nitrite Ql (U) Negative Normal Negative [facility] Comment on above: Order Comment: Speci men Type: URINE SPECIMENOrdering Facility: [facility] Address: [address] [place] [address] Performed By: #### 2 4356-8 ####[facility] LABIA [id number] [place] [address] [place] pH (U) 5.0 [pH] Normal <8.5 [facility] Comment on above: Order Comment: Speci men Type: URINE SPECIMENOrdering Facility: [facility] Address: [address] [place] [address] Performed By: #### 2 4356-8 ####[facility] LABIA [id number] [place] [address] [place] Protein (U) [Mass/Vol] 1+ Abnormal Negative [facility] Comment on above: Order Comment: Speci men Type: URINE SPECIMENOrdering Facility: [facility] Address: [address] [place] [address] Performed By: #### 2 4356-8 ####[facility] LABIA [id number] [place] [address] [place] RBC LM.HPF (Urine sed) [#/Area] 3-5 /HPF Abnormal 0-2 /HPF [facility] Comment on above: Order Comment: Speci men Type: URINE SPECIMENOrdering Facility: [facility] Address: [address] [place] [address] Performed By: #### 2 4356-8 ####[facility] LABIA [id number] [place] [address] [place] Specific gravity (U) [Rel density] 1.035 High 1.005-1.03 0 [facility] Comment on above: Order Comment: Speci men Type: URINE SPECIMENOrdering Facility: [facility] Address: [address] [place] [address] Performed By: #### 2 4356-8 ####[facility] LABIA [id number] [place] [address] [place] Urobilinogen Ql (U) 1.0 EU/dL Normal 0.2-1.0 EU/dL [facility] Comment on above: Order Comment: Speci men Type: URINE SPECIMENOrdering Facility: [facility] Address: [address] [place] [address] Performed By: #### 2 4356-8 ####[facility] LABIA [id number] [place] [address] [place] WBC LM.HPF (Urine sed) [#/Area] 0-5 /HPF Normal 0-5 /HPF [facility] Comment on above: Order Comment: Speci men Type: URINE SPECIMENOrdering Facility: [facility] Address: [address] [place] [address] Performed By: #### 2 4356-8 ####[facility] LABIA [id number] [place] [address] [place] Yeast.budding LM.HPF (Urine sed) [#/Area] None Seen Normal None Seen [facility] Comment on above: Order Comment: Speci men Type: URINE SPECIMENOrdering Facility: [facility] Address: [address] [place] [address] Performed By: #### 2 4356-8 ####[facility] LABIA [id number] [place] [address] [place] Spine Cervical (Routine)on 0 12-26-2024 Spine Cervical (Routine) [facility] Imaging Services [address] [place] [address] Spine Cervical (Routine) MR#: [id number] Acct: [id number] Name: ANASTACIO PATEL Rep #: [id number] : 1940 M 84 From: [facility] [place] PCP: Dr. Piero Rubin MD Status: REG CLI Study: Spine Cervical (Routine) Date of Exam: Exam# [id number] Ordering Dr: Dipti Smith PROCEDURE: SPINE CERVICAL (ROUTINE) REASON FOR EXAM: Neck pain. TECHNIQUE: Noncontrast cervical spine MRI. COMPARISON: CT cervical spine from 10/27/2024. FINDINGS: Cervical vertebral bodies maintain a normal height. There is levoscoliosis of the cervical spine. There is diminished signal intensity involving the discs throughout the cervical spine related to degenerative disc disease. Multilevel disc space narrowing with endplate spurring is present which is mostly on a severe basis. There is mild retrolisthesis of C4-C5. No acute fracture or subluxation is identified. Cervical spinal cord demonstrates a normal signal intensity and morphology. Cerebellar tonsils are within normal range. Individual levels: C2-3: Disc osteophyte complex results in flattening of the ventral thecal sac with mild central canal stenosis. Facet/uncovertebral changes are identified with severe left neural foraminal narrowing. Right neural foramina is patent. C3-4: Mild disc osteophyte complex results in mild flattening of the ventral thecal sac with no significant central canal stenosis. Facet/uncovertebral changes are present with mild bilateral neural foraminal narrowing. C4-5: Mild retrolisthesis with disc osteophyte complex results in flattening of the ventral thecal sac with moderate central canal stenosis. Facet/uncovertebral changes are present with mild bilateral neural foraminal narrowing. C5-6: Disc osteophyte complex results in flattening of the ventral thecal sac with moderate central canal stenosis. Facet/uncovertebral changes are present with moderate to severe right and moderate left neural foraminal narrowing. C6-7: Disc osteophyte complex results in flattening of the ventral thecal sac with moderate central canal stenosis. Facet/uncovertebral changes are present with moderate bilateral neural foraminal narrowing. C7-T1: Mild anterolisthesis with disc osteophyte complex results in mild central canal stenosis. Facet/uncovertebral changes are present with moderate left and [id number] right neural foraminal narrowing. MRI/Spine Cervical (Routine) IMPRESSION: 1. Multilevel advanced degenerative disc disease and spondylosis with moderate central canal stenosis from C4-C7 and mild central canal stenosis at C2-C3 and C7-T1. Multilevel varying degrees of neural foraminal narrowing are identified which are greatest at C5-C6 and C6-C7 as above. 2. No abnormal cord signal. Reading Location[facility] CC: Dipti Smith; Dr. Piero Rubin MD Ski Technician: Signed Normal [facility] Spine Lumbar (Routine)on Spine Lumbar (Routine) [facility] Imaging Services [address] [place] [id number] Spine Lumbar (Routine) MR#: [id number] Acct: [id number] Name: ANASTACIO PATEL Rep #: [id number] : 1940 M 84 From: [facility] PCP: Dr. Piero Rubin MD Status: REG CLI Study: Spine Lumbar (Routine) Date of Exam: 12/26/24 Exam# [id number] Ordering Dr: Dipti Smith PROCEDURE: MRI lumbar spine without IV contrast REASON FOR EXAM: Pain TECHNIQUE: Multisequence multiplanar MR images of the lumbar spine were obtained without the administration of intravenous contrast. COMPARISON: 07/11/2023 FINDINGS: Chronic bilateral sacral insufficiency fractures with bone marrow edema, similar to prior. 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 Mild retrolisthesis of L1-L2, L2-L3 and L3-L4. Dextroscoliosis. Severe chronic compression fracture deformity of T12. Conus medullaris is within normal limits and terminates at L1. Peripelvic cysts. Paraspinal muscle atrophy. L1-2: Posterior disc osteophyte complex. Bilateral facet and uncovertebral arthrosis. Mild spinal stenosis. Narrowing of the left lateral recess. Moderate/severe left and moderate right foraminal narrowing. L2-3: Posterior disc osteophyte complex. Mild bilateral facet arthrosis and ligamentum flavum hypertrophy. Mild/moderate spinal stenosis. Moderate/severe bilateral foraminal narrowing. L3-4: Posterior disc osteophyte complex. Moderate bilateral facet arthrosis and ligamentum flavum hypertrophy. Moderate spinal stenosis. Moderate/severe bilateral foraminal narrowing. L4-5: Posterior disc osteophyte complex. Severe bilateral facet arthrosis. Ligamentum flavum hypertrophy. Mild/moderate spinal stenosis. Moderate/severe left and moderate right foraminal narrowing. L5-S1: Grade 1 anterolisthesis with uncovering of the posterior disc. Mild posterior disc bulge. Severe bilateral facet arthrosis and ligamentum flavum hypertrophy. Moderate spinal stenosis with narrowing of the right lateral recess. Moderate bilateral foraminal narrowing. MRI/Spine Lumbar (Routine) IMPRESSION: 1. Acquired multilevel spinal stenosis, greatest at L3-L4 categorized as moderate. 2. Acquired mild to moderate/severe multilevel foraminal narrowing. See level by level comments above. 3. Multilevel wendi and retrolisthesis as described above. 4. Chronic compression fracture of T12. Chronic bilateral sacral insufficiency fractures with mild bone marrow edema. Reading Location: [facility] CC: Dipti Smith; Dr. Piero Rubin MD Ski Technician: Signed [facility] 12-19-2024 [facility] Telephone (FAMPWS) -- ANASTACIO PATEL ([id number]) 1940 Date Time Provider Department 12/19/24 [facility] During your visit today, we recorded the following information about you: Abdiel Vergara, RN 12/19/2024 2:29 PM Signed [facility]- calling in an OT POC - will extend patient's visits to 1 more x this week, 2 x's next week, and 1 x the following week. Does not need a call back unless Dr. Rubin disagrees. Piero Rubin MD 12/19/2024 3:43 PM Signed Noted. Allergies As of Date: 12/19/2024 (No Known Allergies) Date Reviewed: 11/29/2024 Reviewed by: Matt Michael MD - Fully Assessed Reason for Visit: [facility] OT POC [Other] Prescriptions as of 12/19/2024 - gabapentin (NEURONTIN) 300 mg capsule Take 1 capsule by mouth two times a day for 1 day. - polyethylene glycol 3350 17 gram packet Take 1 Packet by mouth once daily. Dissolve dose in 4 - 8 ounces of liquid and take as directed. - senna-docusate (SENNA-S) 8.6-50 mg per tablet Take 1 tablet by mouth two times a day. - melatonin 3 mg tablet Take 2 tablets by mouth at bedtime as needed for insomnia. - buprenorphine (BUTRANS) 10 mcg/hour Apply 1 Patch as directed one time a week for 1 day. - buprenorphine (BUTRANS) 5 mcg/hour Apply 2 Patches as directed one time a week for 1 day. - finasteride (PROPECIA) 1 mg tablet Take 1 tablet by mouth once daily. - Ipratropium [place] (ATROVENT) 21 mcg (0.03 %) nasal spray Use 2 Sprays in the nose every 12 hours. - acetaminophen (TYLENOL EXTRA STRENGTH) 500 mg tablet Take 2 tablets by mouth every 8 hours as needed for pain. - loperamide HCl (IMODIUM) 2 mg tab Take 1 tablet by mouth as needed. For loose stools at [place] - hydrocortisone 2.5 % cream Apply 1 application to affected area twice daily. APPLY TO AFFECTED AREAS - meclizine (ANTIVERT) 25 mg tab Take 1 tablet by mouth every 6 hours as needed (dizziness). - DAILY MULTIVITAMIN TAB Take one(1) tablet daily. 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] 04/21/2016 Microcytic anemia [D50.9] 08/26/2017 07/25/2020 Benign hypertension [I10] 12/30/2017 Osteoarthritis of spine with radiculopathy, lum*05/04/2018 Macrocytic anemia [D53.9] 07/25/2020 Medicare annual wellness visit, subsequent [Z00*08/23/2021 Living will on file at physician's office [Z78.*08/25/2022 Advance directive discussed with patient [Z71.8*08/25/2022 Abnormal radionuclide bone scan [R94.8] 06/29/2023 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, M*07/01/2023 T12 compression fracture, initial encounter (HC*07/14/2023 Dementia (HCC) [F03.90] 10/26/2023 History of recurrent TIAs [Z86.73] 12/14/2023 Bronchiectasis without complication (HCC) [J47.*12/25/2023 Valvular heart disease [I38] 12/25/2023 Risk for falls [Z91.81] 03/11/2024 Closed wedge compression fracture of T12 verteb*10/28/2024 S/p left hip fracture [Z87.81] 10/28/2024 Delirium [R41.0] 10/28/2024 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] 10/28/2024 Frequent falls [R29.6] 10/28/2024 Acute pain [R52] 10/28/2024 Other chronic pain [G89.29] 10/28/2024 Encounter for pain management [R52] 10/28/2024 Left displaced femoral neck fracture (HCC) [S72*10/28/2024 Leukocytosis [D72.829] 10/31/2024 Elevated serum creatinine [R79.89] 11/01/2024 Encounter Status:Closed by PIERO RUBIN on 12/19/24 [facility] 12-14-2024 [facility] Telephone (FAMWS) -- ANASTACIO PATEL ([id number]) 1940 M Date Time Provider Department 12/14/24 [facility] During your visit today, we recorded the following information about you: Phil Billy LPN 12/14/2024 12:25 PM Signed Lynnette with [employer] calling to have last fax they sent to Dr. Rubin 11/29/24 which he signed and it was faxed back to them, get a copy re-faxed back to [employer] because they accidentally shredded the copy they got back. FAX: [phone]. Done. Phil Billy LPN Allergies As of Date: 12/14/2024 (No Known Allergies) Date Reviewed: 11/29/2024 Reviewed by: Matt Michael MD - Fully Assessed Reason for Visit: re-faxed paperwork [Other] Prescriptions as of 12/14/2024 - gabapentin (NEURONTIN) 300 mg capsule Take 1 capsule by mouth two times a day for 1 day. - polyethylene glycol 3350 17 gram packet Take 1 Packet by mouth once daily. Dissolve dose in 4 - 8 ounces of liquid and take as directed. - senna-docusate (SENNA-S) 8.6-50 mg per tablet Take 1 tablet by mouth two times a day. - melatonin 3 mg tablet Take 2 tablets by mouth at bedtime as needed for insomnia. - buprenorphine (BUTRANS) 10 mcg/hour Apply 1 Patch as directed one time a week for 1 day. - buprenorphine (BUTRANS) 5 mcg/hour Apply 2 Patches as directed one time a week for 1 day. - finasteride (PROPECIA) 1 mg tablet Take 1 tablet by mouth once daily. - Ipratropium [place] (ATROVENT) 21 mcg (0.03 %) nasal spray Use 2 Sprays in the nose every 12 hours. - acetaminophen (TYLENOL EXTRA STRENGTH) 500 mg tablet Take 2 tablets by mouth every 8 hours as needed for pain. - loperamide HCl (IMODIUM) 2 mg tab Take 1 tablet by mouth as needed. For loose stools at [place] - hydrocortisone 2.5 % cream Apply 1 application to affected area twice daily. APPLY TO AFFECTED AREAS - meclizine (ANTIVERT) 25 mg tab Take 1 tablet by mouth every 6 hours as needed (dizziness). - DAILY MULTIVITAMIN TAB Take one(1) tablet daily. 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] 04/21/2016 Microcytic anemia [D50.9] 08/26/2017 07/25/2020 Benign hypertension [I10] 12/30/2017 Osteoarthritis of spine with radiculopathy, lum*05/04/2018 Macrocytic anemia [D53.9] 07/25/2020 Medicare annual wellness visit, subsequent [Z00*08/23/2021 Living will on file at physician's office [Z78.*08/25/2022 Advance directive discussed with patient [Z71.8*08/25/2022 Abnormal radionuclide bone scan [R94.8] 06/29/2023 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, M*07/01/2023 T12 compression fracture, initial encounter (HC*07/14/2023 Dementia (HCC) [F03.90] 10/26/2023 History of recurrent TIAs [Z86.73] 12/14/2023 Bronchiectasis without complication (HCC) [J47.*12/25/2023 Valvular heart disease [I38] 12/25/2023 Risk for falls [Z91.81] 03/11/2024 Closed wedge compression fracture of T12 verteb*10/28/2024 S/p left hip fracture [Z87.81] 10/28/2024 Delirium [R41.0] 10/28/2024 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] 10/28/2024 Frequent falls [R29.6] 10/28/2024 Acute pain [R52] 10/28/2024 Other chronic pain [G89.29] 10/28/2024 Encounter for pain management [R52] 10/28/2024 Left displaced femoral neck fracture (HCC) [S72*10/28/2024 Leukocytosis [D72.829] 10/31/2024 Elevated serum creatinine [R79.89] 11/01/2024 Encounter Status:Closed by PHIL BILLY on 12/14/24 [facility] ANASTACIO PATEL ([id number]) 1940 M Date Time Provider Department 11/30/24 [facility] During your visit today, we recorded the following information about you: Phil Billy LPN 11/30/2024 10:48 AM Signed Nissa with [facility], OT clling to let you know the plan of care. They will see pt 1 time a week for 4 weeks and focus on ADLs nd equipment training. No call back if provider agrees with plan of care. WENDY Olivares Jeffrey A, MD 11/30/2024 2:12 PM Signed Noted. Allergies As of Date: 11/30/2024 (No Known Allergies) Date Reviewed: 11/29/2024 Reviewed by: Matt Michael MD - Fully Assessed Reason for Visit: [facility], OT plan of care [Other] Prescriptions as of 11/30/2024 - gabapentin (NEURONTIN) 300 mg capsule Take 1 capsule by mouth two times a day for 1 day. - polyethylene glycol 3350 17 gram packet Take 1 Packet by mouth once daily. Dissolve dose in 4 - 8 ounces of liquid and take as directed. - senna-docusate (SENNA-S) 8.6-50 mg per tablet Take 1 tablet by mouth two times a day. - melatonin 3 mg tablet Take 2 tablets by mouth at bedtime as needed for insomnia. - buprenorphine (BUTRANS) 10 mcg/hour Apply 1 Patch as directed one time a week for 1 day. - buprenorphine (BUTRANS) 5 mcg/hour Apply 2 Patches as directed one time a week for 1 day. - finasteride (PROPECIA) 1 mg tablet Take 1 tablet by mouth once daily. - donepezil (ARICEPT) 10 mg tablet Take 1 tablet by mouth daily at bedtime. Per Neuro: Dr. Gentile. - Ipratropium [place] (ATROVENT) 21 mcg (0.03 %) nasal spray Use 2 Sprays in the nose every 12 hours. - acetaminophen (TYLENOL EXTRA STRENGTH) 500 mg tablet Take 2 tablets by mouth every 8 hours as needed for pain. - loperamide HCl (IMODIUM) 2 mg tab Take 1 tablet by mouth as needed. For loose stools at [place] - hydrocortisone 2.5 % cream Apply 1 application to affected area twice daily. APPLY TO AFFECTED AREAS - meclizine (ANTIVERT) 25 mg tab Take 1 tablet by mouth every 6 hours as needed (dizziness). - DAILY MULTIVITAMIN TAB Take one(1) tablet daily. 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] 04/21/2016 Microcytic anemia [D50.9] 08/26/2017 07/25/2020 Benign hypertension [I10] 12/30/2017 Osteoarthritis of spine with radiculopathy, lum*05/04/2018 Macrocytic anemia [D53.9] 07/25/2020 Medicare annual wellness visit, subsequent [Z00*08/23/2021 Living will on file at physician's office [Z78.*08/25/2022 Advance directive discussed with patient [Z71.8*08/25/2022 Abnormal radionuclide bone scan [R94.8] 06/29/2023 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, M*07/01/2023 T12 compression fracture, initial encounter (HC*07/14/2023 Dementia (HCC) [F03.90] 10/26/2023 History of recurrent TIAs [Z86.73] 12/14/2023 Bronchiectasis without complication (HCC) [J47.*12/25/2023 Valvular heart disease [I38] 12/25/2023 Risk for falls [Z91.81] 03/11/2024 Closed wedge compression fracture of T12 verteb*10/28/2024 S/p left hip fracture [Z87.81] 10/28/2024 Delirium [R41.0] 10/28/2024 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] 10/28/2024 Frequent falls [R29.6] 10/28/2024 Acute pain [R52] 10/28/2024 Other chronic pain [G89.29] 10/28/2024 Encounter for pain management [R52] 10/28/2024 Left displaced femoral neck fracture (HCC) [S72*10/28/2024 Leukocytosis [D72.829] 10/31/2024 Elevated serum creatinine [R79.89] 11/01/2024 Encounter Status:Closed by PIERO RUBIN on 11/30/24 Normal [facility] XR Pelvis APon 11-29-2024 AP pelvis x-ray demonstrates a maintained left hip hemiarthroplasty without prosthetic dislocation and periprosthetic fracture. [facility] Radiology Study observation (narrative) [facility] CNOVon 11-28-2024 CNOV Office Visit (AGPOB1 ) -- ANASTACIO PATEL ([id number]) 1940 M Date Time Provider Department 11/28/24 3:45 PM [facility] During your visit today, we recorded the following information about you: Respiration Weight Height 20/minute 50.8 kg 1.727 m Matt Michael MD 11/29/2024 2:16 PM Signed ORTHOPAEDIC SURGERY OFFICE NOTE: SURGERY DATE: 1) 10/28/2024 SURGERY: 1) Insertion of a Left Hip Hemiarthroplasty for a Left Femoral Neck Fracture CHIEF COMPLAINT: Routine Post-Operative Follow-Up HISTORY OF PRESENT ILLNESS: Anastacio Patel is an 84 year old male who presents for routine post-operative follow-up from the above listed operation (see "Surgery" above for full details). At today's appointment, the patient reports doing well. The patient endorses controlled pain to the left hip. The patient is ambulatory with gait aids. The patient denies fevers and chills. The patient has no additional orthopaedic traumatic complaints at this time. Reviewed nursing note and current pain scale. 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 PAST SURGICAL HISTORY Procedure Laterality Date APPENDECTOMY COLONOSCOPY FLX DX W/COLLJ SPEC WHEN PFRMD 03/24/06 Repeat in COLONOSCOPY FLX DX W/COLLJ SPEC WHEN PFRMD 06/09/16 Colonoscopy ESOPHAGOGASTRODUODENOSCOPY TRANSORAL DIAGNOSTIC 11/02/2017 EGD HEMORRHOIDECTOMY NTRNL AND XTRNL 1 COLUMN/GROUP SPLENECTOMY TOTAL SEPARATE PROCEDURE Splenectomy FAMILY HISTORY Problem Relation Age of Onset Alzheimer's Disease Father Cancer Son Testicular cancer(2004). Multiple Sclerosis Brother 01/2017, age 76. Social History Tobacco Use Smoking status: Former Current packs/day: 0.00 Average packs/day: 0.3 packs/day for 30.0 years (7.5 ttl pk-yrs) Types: Cigarettes Start date: 03/15/1960 Quit date: 03/15/1990 Years since quittin.7 Smokeless tobacco: Never Tobacco comments: Quit smoking in his 50s. Vaping Use Vaping status: Never Used Substance Use Topics Alcohol use: Not Currently Drug use: No MEDICATIONS: Current Outpatient Medications Medication Sig gabapentin (NEURONTIN) 300 mg capsule Take 1 capsule by mouth two times a day for 1 day. polyethylene glycol 3350 17 gram packet Take 1 Packet by mouth once daily. Dissolve dose in 4 - 8 ounces of liquid and take as directed. senna-docusate (SENNA-S) 8.6-50 mg per tablet Take 1 tablet by mouth two times a day. melatonin 3 mg tablet Take 2 tablets by mouth at bedtime as needed for insomnia. buprenorphine (BUTRANS) 10 mcg/hour Apply 1 Patch as directed one time a week for 1 day. buprenorphine (BUTRANS) 5 mcg/hour Apply 2 Patches as directed one time a week for 1 day. finasteride (PROPECIA) 1 mg tablet Take 1 tablet by mouth once daily. donepezil (ARICEPT) 10 mg tablet Take 1 tablet by mouth daily at bedtime. Per Neuro: Dr. Gentile. Ipratropium [place] (ATROVENT) 21 mcg (0.03 %) nasal spray Use 2 Sprays in the nose every 12 hours. acetaminophen (TYLENOL EXTRA STRENGTH) 500 mg tablet Take 2 tablets by mouth every 8 hours as needed for pain. loperamide HCl (IMODIUM) 2 mg tab Take 1 tablet by mouth as needed. For loose stools at [place] hydrocortisone 2.5 % cream Apply 1 application to affected area twice daily. APPLY TO AFFECTED AREAS meclizine (ANTIVERT) 25 mg tab Take 1 tablet by mouth every 6 hours as needed (dizziness). DAILY MULTIVITAMIN TAB Take one(1) tablet daily. No current facility-administered medications for this visit. ALLERGIES: ALLERGIES No Known Allergies PHYSICAL EXAMINATION: Resp 20 Ht 5' 8" (1.73m) Wt 112 lb (50.8kg) BMI 17.03 kg/(m2). General Appearance: No acute distress Skin: See Extremity exam below for full details Left Lower Extremity: Healed surgical incision to the left hip. There is no romy-incisional erythema nor drainage. Compartments of the thigh and leg are soft and compressible. The patient has active hip flexion, hip extension, knee flexion, knee extension, ankle dorsiflexion, ankle plantarflexion and extensor hallucis longus motor function. Sensation (more content not included)... Normal [facility] 11-23-2024 [facility] Telephone (Daily [employer] Exchange[employer]) -- ANASTACIO PATEL ([id number]) 1940 M Date Time Provider Department 11/23/24 PIERO RUBINGILLIAN During your visit today, we recorded the following information about you: Kellie Eason RN 11/23/2024 3:23 PM Signed Ann-Marie from [facility] calls and states that patient was discharged from [facility] and is back at [employer] [place]. Ann-Marie asking if provider willing to follow patient with orders for physical therapy and occupational therapy. If agreeable please give Ann-Marie a call back [phone] Thank you, MICHAEL Parikh Jeffrey A, MD 11/23/2024 5:06 PM Signed Yes I will follow. Kellie Eason RN 11/24/2024 8:43 AM Signed Ann-Marie calls and notified that PCP will follow orders. Voices understanding. MICHAEL Parikh Sherrie, RN 11/25/2024 11:33 AM Signed Myrtle with [facility] calling and states [facility] service was to provide home health services to patient but never showed. Family requesting to use [facility] now. Myrtle asking for call back with verbal order that PCP will sign and follow. Call Myrtle back at [phone]. Thank you. Piero Rubin MD 11/25/2024 4:41 PM Signed Yes I will follow. Idania Mcdaniels MA 11/25/2024 5:38 PM Signed Left detailed message for patient Myrtle. Idania Mcdaniels MA Allergies As of Date: 11/23/2024 (No Known Allergies) Date Reviewed: 11/02/2024 Reviewed by: Dilcia Roth RN - Fully Assessed Reason for Visit: Home Health Orders [Other] Prescriptions as of 11/25/2024 - gabapentin (NEURONTIN) 300 mg capsule Take 1 capsule by mouth two times a day for 1 day. - polyethylene glycol 3350 17 gram packet Take 1 Packet by mouth once daily. Dissolve dose in 4 - 8 ounces of liquid and take as directed. - senna-docusate (SENNA-S) 8.6-50 mg per tablet Take 1 tablet by mouth two times a day. - melatonin 3 mg tablet Take 2 tablets by mouth at bedtime as needed for insomnia. - buprenorphine (BUTRANS) 10 mcg/hour Apply 1 Patch as directed one time a week for 1 day. - buprenorphine (BUTRANS) 5 mcg/hour Apply 2 Patches as directed one time a week for 1 day. - finasteride (PROPECIA) 1 mg tablet Take 1 tablet by mouth once daily. - donepezil (ARICEPT) 10 mg tablet Take 1 tablet by mouth daily at bedtime. Per Neuro: Dr. Gentile. - Ipratropium [place] (ATROVENT) 21 mcg (0.03 %) nasal spray Use 2 Sprays in the nose every 12 hours. - acetaminophen (TYLENOL EXTRA STRENGTH) 500 mg tablet Take 2 tablets by mouth every 8 hours as needed for pain. - loperamide HCl (IMODIUM) 2 mg tab Take 1 tablet by mouth as needed. For loose stools at [place] - hydrocortisone 2.5 % cream Apply 1 application to affected area twice daily. APPLY TO AFFECTED AREAS - meclizine (ANTIVERT) 25 mg tab Take 1 tablet by mouth every 6 hours as needed (dizziness). - DAILY MULTIVITAMIN TAB Take one(1) tablet daily. 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/2016 Microcytic anemia [D50.9] 08/26/2017 07/25/2020 Benign hypertension [I10] 12/30/2017 Osteoarthritis of spine with radiculopathy, lum*05/04/2018 Macrocytic anemia [D53.9] 07/25/2020 Medicare annual wellness visit, subsequent [Z00*08/23/2021 Living will on file at physician's office [Z78.*08/25/2022 Advance directive discussed with patient [Z71.8*08/25/2022 Abnormal radionuclide bone scan [R94.8] 06/29/2023 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, M*07/01/2023 T12 compression fracture, initial encounter (HC*07/14/2023 Dementia (HCC) [F03.90] 10/26/2023 History of recurrent TIAs [Z86.73] 12/14/2023 Bronchiectasis without complication (HCC) [J47.*12/25/2023 Valvular heart disease [I38] 12/25/2023 Risk for falls [Z91.81] 03/11/2024 Closed wedge compression fracture of T12 verteb*10/28/2024 S/p left hip fracture [Z87.81] 10/28/2024 Delirium [R41.0] 10/28/2024 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] 10/28/2024 Frequent falls [R29.6] 10/28/2024 Acute pain [R52] 10/28/2024 Other chronic pain [G89.29] 10/28/2024 Encounter for pain management [R52] 10/28/2024 Left displaced femoral neck fracture (HCC) [S72*10/28/2024 Leukocytosis [D72.829] 10/31/2024 Elevated serum creatinine [R79.89] 11/01/2024 Encounter Status:Closed by PIERO RUBIN on 11/23/24 Normal [facility] Basic metabolic 2000 panelon 11-02-2024 Anion gap [Moles/Vol] 12 mmol/L Normal 8-15 [facility] Comment on above: Order Comment: Specxenia melchor Type: BLOOD SPECIMENOrdering Facility: [facility] Address: [address] [place] [address] Performed By: #### 2 4321-2 ####[facility] LABORATORYCLIA [id number] [place] [address] [place] Calcium [Mass/Vol] 9.4 mg/dL Normal 8.5-10.2 [facility] Comment on above: Order Comment: Shakir melchor Type: BLOOD SPECIMENOrdering Facility: [facility] Address: [address] [place] [address] Performed By: #### 2 4321-2 ####[facility] LABORATORYCLIA [id number] [address] STATES OF [facility] Chloride [Moles/Vol] 97 mmol/L Low 98-107 [facility] Comment on above: Order Comment: Speci men Type: BLOOD SPECIMENOrdering Facility: [facility] Address: [address] [place] [address] Performed By: #### 2 4321-2 ####[facility] LABORATORYCLIA [id number] [address] OF [facility] CO2 [Moles/Vol] 29 mmol/L Normal 22-30 [facility] Comment on above: Order Comment: Speci men Type: BLOOD SPECIMENOrdering Facility: [facility] Address: [address] [place] [address] Performed By: #### 2 4321-2 ####[facility] [id number] [address] Creatinine [Mass/Vol] 0.97 mg/dL Normal 0.73-1.22 [facility] Comment on above: Order Comment: Speci men Type: BLOOD SPECIMENOrdering Facility: [facility] Address: [address] [place] [address] Performed By: #### 2 4321-2 ####[facility] LABORATORYCLIA [id number] [address] Creatinine and Glomerular filtration rate.predicted panel (S/P/Bld) 77 mL/min/1.73m??? Normal >=60 [facility] Comment on above: Order Comment: Speci men Type: BLOOD SPECIMENOrdering Facility: [facility] Address: [address] [place] [address] Result Comment: Lilly mated Glomerular Filtration Rate (eGFR) is calculated using the 2020 CKD-EPI creatinine equation. This equation utilizes serum creatinine, sex, and age as parameters. The creatinine assay has traceable calibration to isotope dilution-mass spectrometry. Refer to KDIGO guidelines for clinical interpretation. In patients with unstable renal function, e.g. those with acute kidney injury, the eGFR may not accurately reflect actual GFR. Performed By: #### 2 4321-2 ####[facility] LABORATORYCLIA [id number] [place] [address] [place] Glucose [Mass/Vol] 91 mg/dL Normal 74-99 [facility] Comment on above: Order Comment: Speci men Type: BLOOD SPECIMENOrdering Facility: [facility] Address: [address] [place] [address] Result Comment: The [place] Diabetes Association (ADA) provides guidance for cutoff values for fasting glucose and random glucose. The ADA defines fasting as no caloric intake for at least 8 hours. Fasting plasma glucose results between 100 to 125 mg/dL indicate increased risk for diabetes (prediabetes). Fasting plasma glucose results greater than or equal to 126 mg/dL meet the criteria for diagnosis of diabetes. In the absence of unequivocal hyperglycemia, results should be confirmed by repeat testing. In a patient with classic symptoms of hyperglycemia or hyperglycemic crisis, random plasma glucose results greater than or equal to 200 mg/dL meet the criteria for diagnosis of diabetes. Reference: Standards of Medical Care in Diabetes 2016, [place] Diabetes Association. Diabetes Care. 2016.39(Suppl 1). Performed By: #### 2 4321-2 ####[facility] LABORATORYCLIA [id number] [place] [address] [place] Potassium [Moles/Vol] 4.2 mmol/L Normal 3.7-5.1 [facility] Comment on above: Order Comment: Lancei men Type: BLOOD SPECIMENOrdering Facility: [facility] Address: [address] [place] [address] Performed By: #### 2 4321-2 ####[facility] LABORATORYCLIA [id number] [place] [address] [place] Sodium [Moles/Vol] 138 mmol/L Normal 136-144 [facility] Comment on above: Order Comment: Speci men Type: BLOOD SPECIMENOrdering Facility: [facility] Address: [address] [place] [address] Performed By: #### 2 4321-2 ####[facility] LABORATORYCLIA [id number] [place] [address] [place] Urea nitrogen [Mass/Vol] 25 mg/dL High 9-24 [facility] Comment on above: Order Comment: Speci men Type: BLOOD SPECIMENOrdering Facility: [facility] Address: [address] [place] [address] Performed By: #### 2 4321-2 ####[facility] LABORATORYCLIA [id number] [address] STATES OF [facility] CBC panel Auto (Bld)on 11-02 Erythrocyte distribution width (RBC) [Ratio] 14.4 % Normal 11.5-15.0 [facility] Comment on above: Order Comment: Speci men Type: BLOOD SPECIMENOrdering Facility: [facility] Address: [address] [place] [address] Performed By: #### 5 8410-2 ####[facility] LABORATORYCLIA [id number] [address] [place] Hematocrit (Bld) [Volume fraction] 30.2 % Low 39.0-51.0 [facility] Comment on above: Order Comment: Speci men Type: BLOOD SPECIMENOrdering Facility: [facility] Address: [address] [place] [address] Performed By: #### 5 8410-2 ####[facility] LABORATORYCLIA [id number] [address] [place] Hemoglobin (Bld) [Mass/Vol] 9.9 g/dL Low 13.0-17.0 [facility] Comment on above: Order Comment: Speci men Type: BLOOD SPECIMENOrdering Facility: [facility] Address: [address] [place] [address] Performed By: #### 5 8410-2 ####[facility] LABORATORYCLIA [id number] [address] STATES [facility] MCH (RBC) [Entitic mass] 32.9 pg Normal 26.0-34.0 [facility] Comment on above: Order Comment: Speci men Type: BLOOD SPECIMENOrdering Facility: [facility] Address: [address] [place] [address] Performed By: #### 5 8410-2 ####[facility] LABORATORYCLIA [id number] [address] STATES [facility] MCHC (RBC) [Mass/Vol] 32.8 g/dL Normal 30.5-36.0 [facility] Comment on above: Order Comment: Speci men Type: BLOOD SPECIMENOrdering Facility: [facility] Address: [address] [place] [address] Performed By: #### 5 8410-2 ####[facility] LABORATORYCLIA [id number] [address] OF [place] MCV (RBC) [Entitic vol] 100.3 fL High 80.0-100.0 [facility] Comment on above: Order Comment: Speci men Type: BLOOD SPECIMENOrdering Facility: [facility] Address: [address] [place] [address] Performed By: #### 5 8410-2 ####[facility] LABORATORYCLIA [id number] [address] Nucleated RBC (Bld) [#/Vol] 10*3/uL Normal <0.01 [facility] Comment on above: Order Comment: Speci men Type: BLOOD SPECIMENOrdering Facility: [facility] Address: [address] [place] [address] Performed By: #### 5 8410-2 ####[facility] LABORATORYCLIA [id number] [address] Platelet mean volume (Bld) [Entitic vol] 12.2 fL Normal 9.0-12.7 [facility] Comment on above: Order Comment: Speci men Type: BLOOD SPECIMENOrdering Facility: [facility] Address: [address] [place] [address] Performed By: #### 5 8410-2 ####[facility] LABORATORYCLIA [id number] [address] [place] Platelets (Bld) [#/Vol] 206 10*3/uL Normal 150-400 [facility] Comment on above: Order Comment: Speci men Type: BLOOD SPECIMENOrdering Facility: [facility] Address: [address] [place] [id number] Performed By: #### 5 8410-2 ####[facility] LABORATORYCLIA [id number] [place] [id number] [facility] RBC (Bld) [#/Vol] 3.01 10*6/uL Low 4.20-6.00 [facility] Comment on above: Order Comment: Speci men Type: BLOOD SPECIMENOrdering Facility: [facility] Address: [address] [place], [place] [address] Performed By: #### 5 8410-2 ####[facility] LABORATORYCLIA [id number] [place] [id number] [facility] WBC (Bld) [#/Vol] 13.21 10*3/uL High 3.70-11.00 [facility] Comment on above: Order Comment: Speci men Type: BLOOD SPECIMENOrdering Facility: [facility] Address: [address] [place] [address] Performed By: #### 5 8410-2 ####[facility] LABORATORYCLIA [id number] [address] CNDSon 11-02-2024 CNDS HNO ID: [id number] Author: MAHIN GEORGE MD Service: General Surgery Author Type: Nurse Practitioner Type: Discharge Summary Filed: 11/02/2024 11:38 Note Text: -- Attestation signed by Mahin George MD at 11/02/2024 11:38 AM Attending Note The patient is appropriate for discharge. The NEW, acting on behalf of the attending physician, has completed the [id number] portion of the patient discharge encounter. Mahin George MD -- DISCHARGE SUMMARY PATIENT NAME: Anastacio Patel Code Status: DNR-CCA Highest Readmission Risk Score: 23 The 30 day readmissions risk score is derived from an internally validated risk model which evaluates patient level characteristics, utilization history, medication orders and lab results up until the day of discharge. Patients with a score of 40 or above are considered highest risk for readmission. Specific patient level drivers will be listed at the bottom of the summary. Admission Information Admission Information ADMIT DATE: 10/28/2024 DISCHARGE DATE: 11/02/2024 MY DOCTORS AND MEDICAL TEAM: My Main Hospital Doctor: Mahin George MD Primary Care Provider: Piero Rubin MD My Medical Team Members: Treatment Team: Attending Provider: Mahin George MD MY CONDITION AT DISCHARGE: Stable REASON I WAS IN THE HOSPITAL: Fall SUMMARY OF WHAT HAPPENED WHILE I WAS IN THE HOSPITAL: Mr. Patel was admitted at [facility] on 10/28/2024 following a fall. He was found to have the following acute traumatic injuries: 1. Left femoral neck fracture 2. Progression of T12 compression fracture He was evaluated by orthopedic surgery and neurosurgery. Orthopedic surgery performed a left hip hemiarthroplasty on 10/28/2024. He may bear weight as tolerated on his left leg with posterior hip precautions. Neurosurgery recommended no intervention for the progressive T12 compression. He may wear a brace as needed for comfort. Mr. Patel was evaluated by physical and occupational therapy who recommended a Care Home Facility for his ongoing recovery. He will require follow up appointments with orthopedic surgery and his primary care provider. OTHER PROBLEMS/DIAGNOSIS: Principal Problem: S/p left hip fracture Active Problems: Dementia (HCC) Closed wedge compression fracture of T12 vertebra (HCC) Delirium Frailty syndrome in geriatric patient Frequent falls Acute pain Other chronic pain Encounter for pain management Left displaced femoral neck fracture (HCC) Leukocytosis Elevated serum creatinine Resolved Problems: * No resolved hospital problems. * OPERATIONS PERFORMED WHILE IN THE HOSPITAL: - Left hip hemiarthroplasty (Dr. Michael) IMPORTANT TEST/PROCEDURES: No procedures performed TEST RESULTS NOT AVAILABLE AT THIS TIME: No pending results Discharge Disposition Discharge Disposition: Care Home Facility - Less than 30 Days Activity When You Leave the Hospital May bathe and shower May shower. No tub baths, hot tubs, or swimming. Weight-bearing limited to: WBAT LLE with posterior hip precautions Diet Instructions Resume your pre-hospital diet For Pain When You Leave the Hospital Use the dispensed medication (see prescription) Wound/Surgical Site Care Keep your dressing clean and dry Mepilex dressing may be removed on 11/04/2024 Some bleeding from the wound/surgical site can be expected. If excessive, see a doctor at once Wash your hands frequently, especially before touching your incision, after using restroom and before eating Call Your Doctor If There is an unusual odor from the wound area There is severe pain at the operative site You have difficulty urinating or pain when urinating You have lightheadedness, fainting, or confusion You have pain and swelling in your legs, especially if it is only on one side and not the other You have pain with urination, cloudy urine or foul smelling urine You have persistent nausea/vomiting over 24 hours You have persistent or heavy bleeding You have redness, swelling, pus or drainage from the wound Your temperature is greater than 101F Follow Up Appointments Follow-Up Appointment When: In 2 weeks Patient/Parents to call for appointment?: Yes Matt Michael MD [phone] [facility] [address] [facility] [address] PCP Requested Referral Additional Provider to Provider Information: No notes on file Malnutrition Diagnosis supported by Registered Dietitian:Severe Protein-Calorie Malnutrition Based on: Muscle Loss, Subcutaneous Fat Loss Assessment: I have reviewed the result of the malnutrition assessment and plan and agree Plan: Diet, Supplements Treatment Team: Attending Provider: Mahin George, (more content not included)... Normal [facility] Basic metabolic 2000 panelon 11-01-2024 Anion gap [Moles/Vol] 9 mmol/L Normal 8-15 [facility] Comment on above: Order Comment: Speci men Type: BLOOD SPECIMENOrdering Facility: [facility] Address: [address] [place] [address] Performed By: #### 2 4321-2 ####[facility] LABORATORYCLIA [id number] [place] [address] [place] Calcium [Mass/Vol] 8.6 mg/dL Normal 8.5-10.2 [facility] Comment on above: Order Comment: Speci men Type: BLOOD SPECIMENOrdering Facility: [facility] Address: [address] [place] [address] Performed By: #### 2 4321-2 ####[facility] LABORATORYCLIA [id number] [place] [address] [place] Chloride [Moles/Vol] 101 mmol/L Normal 98-107 [facility] Comment on above: Order Comment: Speci men Type: BLOOD SPECIMENOrdering Facility: [facility] Address: [address] [place] [address] Performed By: #### 2 4321-2 ####[facility] LABORATORYCLIA [id number] [place] [address] [place] CO2 [Moles/Vol] 28 mmol/L Normal 22-30 [facility] Comment on above: Order Comment: Speci men Type: BLOOD SPECIMENOrdering Facility: [facility] Address: [address] [place] [address] Performed By: #### 2 4321-2 ####[facility] LABORATORYCLIA [id number] [place] [address] [place] Creatinine [Mass/Vol] 1.32 mg/dL High 0.73-1.22 [facility] Comment on above: Order Comment: Speci men Type: BLOOD SPECIMENOrdering Facility: [facility] Address: [address] [place] [address] Performed By: #### 2 4321-2 ####[facility] LABORATORYCLIA [id number] [address] Creatinine and Glomerular filtration rate.predicted panel (S/P/Bld) 53 mL/min/1.73m??? Low >=60 [facility] Comment on above: Order Comment: Speci men Type: BLOOD SPECIMENOrdering Facility: [facility] Address: [address] [place] [address] Result Comment: Lilly mated Glomerular Filtration Rate (eGFR) is calculated using the 2020 CKD-EPI creatinine equation. This equation utilizes serum creatinine, sex, and age as parameters. The creatinine assay has traceable calibration to isotope dilution-mass spectrometry. Refer to KDIGO guidelines for clinical interpretation. In patients with unstable renal function, e.g. those with acute kidney injury, the eGFR may not accurately reflect actual GFR. Performed By: #### 2 4321-2 ####[facility] LABORATORYCLIA [id number] [place] [address] [place] Glucose [Mass/Vol] 145 mg/dL High 74-99 [facility] Comment on above: Order Comment: Shakir melchor Type: BLOOD SPECIMENOrdering Facility: [facility] Address: [address] [place] [address] Result Comment: The [place] Diabetes Association (ADA) provides guidance for cutoff values for fasting glucose and random glucose. The ADA defines fasting as no caloric intake for at least 8 hours. Fasting plasma glucose results between 100 to 125 mg/dL indicate increased risk for diabetes (prediabetes). Fasting plasma glucose results greater than or equal to 126 mg/dL meet the criteria for diagnosis of diabetes. In the absence of unequivocal hyperglycemia, results should be confirmed by repeat testing. In a patient with classic symptoms of hyperglycemia or hyperglycemic crisis, random plasma glucose results greater than or equal to 200 mg/dL meet the criteria for diagnosis of diabetes. Reference: Standards of Medical Care in Diabetes 2016, [place] [employer]. Diabetes Care. 2016.39(Suppl 1). Performed By: #### 2 4321-2 ####[facility] LABORATORYCLIA [id number] [place] [address] [place] Potassium [Moles/Vol] 4.1 mmol/L Normal 3.7-5.1 [facility] Comment on above: Order Comment: Shakir melchor Type: BLOOD SPECIMENOrdering Facility: [facility] Address: [address] [place] [address] Performed By: #### 2 4321-2 ####[facility] LABORATORYCLIA [id number] [address] Sodium [Moles/Vol] 138 mmol/L Normal 136-144 [facility] Comment on above: Order Comment: Speci men Type: BLOOD SPECIMENOrdering Facility: [facility] Address: [address] [place] [address] Performed By: #### 2 4321-2 ####[facility] LABORATORYCLIA [id number] [address] [place] Urea nitrogen [Mass/Vol] 33 mg/dL High 9-24 [facility] Comment on above: Order Comment: Speci men Type: BLOOD SPECIMENOrdering Facility: [facility] Address: [address] [place] [address] Performed By: #### 2 4321-2 ####[facility] LABORATORYCLIA [id number] [address] CBC panel Auto (Bld)on 11-01 Erythrocyte distribution width (RBC) [Ratio] 14.4 % Normal 11.5-15.0 [facility] Comment on above: Order Comment: Speci men Type: BLOOD SPECIMENOrdering Facility: [facility] Address: [address] [place] [address] Performed By: #### 5 8410-2 ####[facility] LABORATORYCLIA [id number] [address] STATES [facility] Hematocrit (Bld) [Volume fraction] 26.0 % Low 39.0-51.0 [facility] Comment on above: Order Comment: Speci men Type: BLOOD SPECIMENOrdering Facility: [facility] Address: [address] [place] [address] Performed By: #### 5 8410-2 ####[facility] LABORATORYCLIA [id number] [address] [place] Hemoglobin (Bld) [Mass/Vol] 8.7 g/dL Low 13.0-17.0 [facility] Comment on above: Order Comment: Speci men Type: BLOOD SPECIMENOrdering Facility: [facility] Address: [address] [place] [address] Performed By: #### 5 8410-2 ####[facility] LABORATORYCLIA [id number] [address] MCH (RBC) [Entitic mass] 33.2 pg Normal 26.0-34.0 [facility] Comment on above: Order Comment: Speci men Type: BLOOD SPECIMENOrdering Facility: [facility] Address: [address] [place] [address] Performed By: #### 5 8410-2 ####[facility] LABORATORYCLIA [id number] [address] MCHC (RBC) [Mass/Vol] 33.5 g/dL Normal 30.5-36.0 [facility] Comment on above: Order Comment: Speci men Type: BLOOD SPECIMENOrdering Facility: [facility] Address: [address] [place] [address] Performed By: #### 5 8410-2 ####[facility] LABORATORYCLIA [id number] [address] MCV (RBC) [Entitic vol] 99.2 fL Normal 80.0-100.0 [facility] Comment on above: Order Comment: Speci men Type: BLOOD SPECIMENOrdering Facility: [facility] Address: [address] [place] [address] Performed By: #### 5 8410-2 ####[facility] LABORATORYCLIA [id number] [address] Nucleated RBC (Bld) [#/Vol] 10*3/uL Normal <0.01 [facility] Comment on above: Order Comment: Speci men Type: BLOOD SPECIMENOrdering Facility: [facility] Address: [address] [place] [address] Performed By: #### 5 8410-2 ####[facility] LABORATORYCLIA [id number] [address] OF [place] Platelet mean volume (Bld) [Entitic vol] 12.6 fL Normal 9.0-12.7 [facility] Comment on above: Order Comment: Speci men Type: BLOOD SPECIMENOrdering Facility: [facility] Address: [address] [place] [address] Performed By: #### 5 8410-2 ####[facility] LABORATORYCLIA [id number] [place] [id number] [facility] Platelets (Bld) [#/Vol] 149 10*3/uL Low 150-400 [facility] Comment on above: Order Comment: Speci men Type: BLOOD SPECIMENOrdering Facility: [facility] Address: [address] [place] [address] Performed By: #### 5 8410-2 ####[facility] LABORATORYCLIA [id number] [address] RBC (Bld) [#/Vol] 2.62 10*6/uL Low 4.20-6.00 [facility] Comment on above: Order Comment: Speci men Type: BLOOD SPECIMENOrdering Facility: [facility] Address: [address] [place] [address] Performed By: #### 5 8410-2 ####[facility] LABORATORYCLIA [id number] [address] WBC (Bld) [#/Vol] 12.23 10*3/uL High 3.70-11.00 [facility] Comment on above: Order Comment: Speci men Type: BLOOD SPECIMENOrdering Facility: [facility] Address: [address] [place] [address] Performed By: #### 5 8410-2 ####[facility] LABORATORYCLIA [id number] [place] [id number] [facility] THERAPY NTon 11-01-2024 THERAPY NT HNO ID: [id number] Author: SANKET LINDER PT Service: Physical Therapy Author Type: Reserve Officer Type: Therapy (PT/OT/Speech/Resp) Filed: 11/01/2024 15:17 Note Text: -- Attestation signed by Sanket Linder PT at 11/01/2024 3:17 PM I reviewed and agree with the documentation corresponding to this therapy visit. Multiple goals met and updated this date SIGNATURE: Sanket Linder PT DATE: November 01, 2024 TIME: 3:16 PM -- Physical Therapy Treatment Summary SERVICE DATE: 11/01/2024 SERVICE TIME: 1316 to 1343 ROOM: [id number] PT 6 Clicks Score: 15 DISCHARGE RECOMMENDATIONS Subacute/SNF Recommended Discharge Disposition Comments: Patient well below functional baseline, recommend SNF at discharge Recommended Discharge Disposition Due to: Functional deficits requiring ongoing therapy service prior to discharge home., Balance deficits, Functional status decline ASSESSMENT Response to Therapy Interventions: Cognitive Deficits, Good Participation in Activities, Needs Frequent Redirection or Reinstruction Patient with notable progression towards physical therapy goals this session. Required an average of minimal physical assist for all tasks. Remains below his prior level of function despite improvement. Pt remains a + fall risk as of this session and demonstrated unsafe habits throughout. Continue to recommend senior living facility level therapies at discharge. PRECAUTIONS Fall Risk, Weight Bearing Restrictions, Posterior Hip Precautions, Bed/Chair Alarm brace for comfort per neuro Left Lower Extremity Weight Bearing Status: WBAT CURRENT HOSPITAL COURSE 84 y.o male s/p fall at AL, found to have L FNF fx, s/p L hip jose miguel 12/, T12 compression fx, per neuro can wear brace for comfort Relevant Past Medical History: HTN, dementia, TIA HOME LIVING Patient Lives With: Facility Care Assistance Available: Part-Time Entry To Home: No Stairs Number Of Stairs To Bed/Bath: 0 Equipment Owned: Walker- Wheeled, Wheelchair- Manual PRIOR FUNCTIONAL LEVEL Required Assistance, Poor Historian Assistance Required With: Cleaning, Laundry, Meals, Medication Management, Shopping, Transportation Patient is a poor historian, reports ambulating with a walker lately due to recently falls, independent with ADLs/IADLs, patient reports still living home alone. SUBJECTIVE Pt pleasantly confused, agreeable to PT. Does not remember ambulating with PT in the past. THERAPY DIAGNOSIS Reduced mobility-other, Muscle Weakness (generalized), Unsteadiness on feet, General symptoms and signs-other, Difficulty walking-musculoskeletal TREATMENT INTERVENTIONS Therapeutic Activity (54907), Gait Training (56030) Timed Code Treatment (minutes): 27 Skilled Treatment Time (minutes): 27 Therapeutic Activity (87447) Treatment Minutes: 15 $ Therapeutic Activity (40117) Billed Units: 1 unit Patient completed left jose miguel hip arthroplasty protocol (ankle pump, quad set, gluteal set, heel slide, hip abd/add to neutral, short arc quad, long arc quad, hip adductor squeeze) x 10 reps with minimal amount of assist. Educated patient on posterior hip precautions. Patient recalls 0/3 hip precautions Patient reports ~5/10 pain with mobility. Cues for transfer safety to decrease fall risk, increased independence, and increase efficiency. Pt completed x2 sit to/from stand transfers at the recliner. Completed static sitting in recliner without back support and static standing with wheeled walker for ~1-2 minutes and contact guard assist-minimal assist. See grid and balance section below for more details. Patient set up with ice to surgical hip and elevated lower extremity as needed. Gait Training (01536) Treatment Minutes: 12 $ Gait Training (85808) Billed Units: 1 unit Challenged pt to increase ambulation distance this session. Increased time to complete due to decreased step height, length, and ruth. Cues provided to increase safety and promote independence. See grid below for details. TRAINING AND EDUCATION PROVIDED Assistive Device Use, Benefits of In-Hospital Mobility, Expected Functional Level, Falls Prevention, Gait Pattern, Reduction of Deviations, Exercise Program, Positioning, Precautions/Restrictions, Role of Physical Therapy, Standing Balance, Transfers, Pre-gait Activities THERAPEUTIC SKILLS USED Cues for Sequencing/Proper Technique for Activity, Cuing Tactile, Cuing Verbal, Movement Facilitation, Muscle Activation Facilitation, Physical Assist, Postural Alignment Correction FUNCTIONAL STATUS mobility performed during session in bold, other mobility completed during prior session and may no longer be correct or appropriate to complete. Bed Mobility Transfers Sit To Stand: Minimal Assistance, Additional I (more content not included)... Normal [facility] Basic metabolic 2000 panelon 10-31-2024 Anion gap [Moles/Vol] 7 mmol/L Low 8-15 [facility] Comment on above: Order Comment: Speci men Type: BLOOD SPECIMENOrdering Facility: [facility] Address: [address] [place] [address] Performed By: #### 2 4321-2 ####[facility] LABORATORYCLIA [id number] [place] [address] [place] Calcium [Mass/Vol] 8.8 mg/dL Normal 8.5-10.2 [facility] Comment on above: Order Comment: Speci men Type: BLOOD SPECIMENOrdering Facility: [facility] Address: [address] [place] [address] Performed By: #### 2 4321-2 ####[facility] LABORATORYCLIA [id number] [place] [address] [place] Chloride [Moles/Vol] 101 mmol/L Normal 98-107 [facility] Comment on above: Order Comment: Speci men Type: BLOOD SPECIMENOrdering Facility: [facility] Address: [address] [place] [address] Performed By: #### 2 4321-2 ####[facility] LABORATORYCLIA [id number] [place] [address] [place] CO2 [Moles/Vol] 30 mmol/L Normal 22-30 [facility] Comment on above: Order Comment: Speci men Type: BLOOD SPECIMENOrdering Facility: [facility] Address: [address] [place] [address] Performed By: #### 2 4321-2 ####[facility] LABORATORYCLIA [id number] [place] [address] [place] Creatinine [Mass/Vol] 1.08 mg/dL Normal 0.73-1.22 [facility] Comment on above: Order Comment: Speci men Type: BLOOD SPECIMENOrdering Facility: [facility] Address: [address] [place] [address] Performed By: #### 2 4321-2 ####[facility]ANSVILLECLIA [id number] [address] [place] Creatinine and Glomerular filtration rate.predicted panel (S/P/Bld) 67 mL/min/1.73m??? Normal >=60 [facility] Comment on above: Order Comment: Shakir men Type: BLOOD SPECIMENOrdering Facility: [facility] Address: [address] [place] [address] Result Comment: Lilly mated Glomerular Filtration Rate (eGFR) is calculated using the 2020 CKD-EPI creatinine equation. This equation utilizes serum creatinine, sex, and age as parameters. The creatinine assay has traceable calibration to isotope dilution-mass spectrometry. Refer to KDIGO guidelines for clinical interpretation. In patients with unstable renal function, e.g. those with acute kidney injury, the eGFR may not accurately reflect actual GFR. Performed By: #### 2 4321-2 ####[facility] HOSPITALIA [id number] [place] [address] [place] Glucose [Mass/Vol] 114 mg/dL High 74-99 [facility] Comment on above: Order Comment: Shakir melchor Type: BLOOD SPECIMENOrdering Facility: [facility] Address: [address] [place] [address] Result Comment: The [place] Diabetes Association (ADA) provides guidance for cutoff values for fasting glucose and random glucose. The ADA defines fasting as no caloric intake for at least 8 hours. Fasting plasma glucose results between 100 to 125 mg/dL indicate increased risk for diabetes (prediabetes). Fasting plasma glucose results greater than or equal to 126 mg/dL meet the criteria for diagnosis of diabetes. In the absence of unequivocal hyperglycemia, results should be confirmed by repeat testing. In a patient with classic symptoms of hyperglycemia or hyperglycemic crisis, random plasma glucose results greater than or equal to 200 mg/dL meet the criteria for diagnosis of diabetes. Reference: Standards of Medical Care in Diabetes 2016, [place] Diabetes Association. Diabetes Care. 2016.39(Suppl 1). Performed By: #### 2 4321-2 ####[facility] LABORATORYCLIA [id number] [place] [address] [place] Potassium [Moles/Vol] 4.4 mmol/L Normal 3.7-5.1 [facility] Comment on above: Order Comment: Speci men Type: BLOOD SPECIMENOrdering Facility: [facility] Address: [address] [place] [address] Performed By: #### 2 4321-2 ####[facility] LABORATORYCLIA [id number] [place] [address] [place] Sodium [Moles/Vol] 138 mmol/L Normal 136-144 [facility] Comment on above: Order Comment: Speci men Type: BLOOD SPECIMENOrdering Facility: [facility] Address: [address] [place] [address] Performed By: #### 2 4321-2 ####[facility] LABORATORYCLIA [id number] [address] [place] Urea nitrogen [Mass/Vol] 25 mg/dL High 9-24 [facility] Comment on above: Order Comment: Speci men Type: BLOOD SPECIMENOrdering Facility: [facility] Address: [address] [place] [address] Performed By: #### 2 4321-2 ####[facility] LABORATORYCLIA [id number] [address] [place] CBC panel Auto (Bld)on 10-31 Erythrocyte distribution width (RBC) [Ratio] 14.6 % Normal 11.5-15.0 [facility] Comment on above: Order Comment: Speci men Type: BLOOD SPECIMENOrdering Facility: [facility] Address: [address] [place] [address] Performed By: #### 5 8410-2 ####[facility] LABORATORYCLIA [id number] [address] [place] Hematocrit (Bld) [Volume fraction] 28.5 % Low 39.0-51.0 [facility] Comment on above: Order Comment: Speci men Type: BLOOD SPECIMENOrdering Facility: [facility] Address: [address] [place] [address] Performed By: #### 5 8410-2 ####[facility] LABORATORYCLIA [id number] [address] OF [facility] Hemoglobin (Bld) [Mass/Vol] 9.3 g/dL Low 13.0-17.0 [facility] Comment on above: Order Comment: Speci men Type: BLOOD SPECIMENOrdering Facility: [facility] Address: [address] [place] [address] Performed By: #### 5 8410-2 ####[facility] LABORATORYCLIA [id number] [address] OF [facility] MCH (RBC) [Entitic mass] 32.6 pg Normal 26.0-34.0 [facility] Comment on above: Order Comment: Speci men Type: BLOOD SPECIMENOrdering Facility: [facility] Address: [address] [place] [address] Performed By: #### 5 8410-2 ####[facility] LABORATORYCLIA [id number] [address] MCHC (RBC) [Mass/Vol] 32.6 g/dL Normal 30.5-36.0 [facility] Comment on above: Order Comment: Speci men Type: BLOOD SPECIMENOrdering Facility: [facility] Address: [address] [place] [address] Performed By: #### 5 8410-2 ####[facility] LABORATORYCLIA [id number] [address] STATES OF [facility] MCV (RBC) [Entitic vol] 100.0 fL Normal 80.0-100.0 [facility] Comment on above: Order Comment: Speci men Type: BLOOD SPECIMENOrdering Facility: [facility] Address: [address] [place] [address] Performed By: #### 5 8410-2 ####[facility] LABORATORYCLIA [id number] [address] Nucleated RBC (Bld) [#/Vol] 10*3/uL Normal <0.01 [facility] Comment on above: Order Comment: Speci men Type: BLOOD SPECIMENOrdering Facility: [facility] Address: [address] [place] [address] Performed By: #### 5 8410-2 ####[facility] LABORATORYCLIA [id number] [address] [place] Platelet mean volume (Bld) [Entitic vol] 12.3 fL Normal 9.0-12.7 [facility] Comment on above: Order Comment: Speci men Type: BLOOD SPECIMENOrdering Facility: [facility] Address: [address] [place] [address] Performed By: #### 5 8410-2 ####[facility] LABORATORYCLIA [id number] [address] [place] Platelets (Bld) [#/Vol] 128 10*3/uL Low 150-400 [facility] Comment on above: Order Comment: Speci men Type: BLOOD SPECIMENOrdering Facility: [facility] Address: [address] [place] [address] Performed By: #### 5 8410-2 ####[facility] LABORATORYCLIA [id number] [place] [address] [place] RBC (Bld) [#/Vol] 2.85 10*6/uL Low 4.20-6.00 [facility] Comment on above: Order Comment: Speci men Type: BLOOD SPECIMENOrdering Facility: [facility] Address: [address] [place] [address] Performed By: #### 5 8410-2 ####[facility] LABORATORYCLIA [id number] [place] [address] [place] WBC (Bld) [#/Vol] 15.72 10*3/uL High 3.70-11.00 [facility] Comment on above: Order Comment: Speci men Type: BLOOD SPECIMENOrdering Facility: [facility] Address: [address] [place] [address] Performed By: #### 5 8410-2 ####[facility] LABORATORYCLIA [id number] [place] [address] [place] CONSULT PROGon 10-31-2024 CONSULT PROG HNO ID: [id number] Author: MICHEL ROJAS PA Service: Geriatrics Author Type: Physician Crown Blocker Type: Consult Progress Note Filed: 10/31/2024 10:52 Note Text: GERIATRIC MEDICINE PROGRESS NOTE SERVICE DATE: 10/31/2024 SERVICE TIME: 9:15 AM DEA/[id number]-* DIAGNOSES: HTN, TIA, former smoker, hypothyroidism, dementia, recurrent falls, debility, L hip fracture, severe malnutrition, delirium BASELINE MENTATION: AANDO X2-3 INTERVAL HPI: Patient is awake in the hospital bed, assisted with NC, blinds open. Pleasant and cooperative. Able to state name, age, , place, month, year, why he is at the hospital and hospital course. Denies hallucinations. Endorses confusion at baseline. Endorses weakness, fatigue, and hip pain with movement. Denies chest pain, palpitations, cough, shortness of breath, abdominal pain, nausea, dizziness, headaches, or vision changes. Slept well overnight per patient and RN, voiding without difficulty, no BM, tolerating meals. Subjective DNR/CODE STATUS: DNR-CCA Advance Directives: Living Will? Not in chart HCPOA? Not in chart Decision Maker? Majority of 3 children Medications: MEDICATIONS REVIEWED: Yes Current Facility-Administered Medications Medication Dose Route Frequency NaCl 0.9% iv flush bag 20 mL INTRAVENOUS PRN senna-docusate 8.6-50 mg 1 tablet (SENNA-S) 1 tablet ORAL BID polyethylene glycol 3350 17 g packet 17 g ORAL DAILY donepezil 10 mg tab(s) (ARICEPT) 10 mg ORAL AT BEDTIME gabapentin 300 mg cap(s) (NEURONTIN) 300 mg ORAL BID finasteride 1 mg tab(s) (PROPECIA) 1 mg ORAL DAILY Ipratropium [place] 2 Pierce nasal spray (ATROVENT) 2 Pierce NASAL q 12 H ondansetron 4 mg tab(s) (ZOFRAN) 4 mg ORAL q 6 H PRN Or ondansetron (PF) 4 mg injection (ZOFRAN) 4 mg INTRAVENOUS q 6 H PRN ipratropium-albuterol 3 mL nebulizer solution (DUONEB) 3 mL INHALATION q 6 H PRN acetaminophen 1,000 mg tab(s) (TYLENOL) 1,000 mg ORAL q 8 H tiZANidine 4 mg tab(s) (ZANAFLEX) 4 mg ORAL TID PRN enoxaparin 40 mg injection (LOVENOX) 40 mg SUBCUTANEOUS q 24 HR melatonin 6 mg tab(s) 6 mg ORAL DAILY (8 PM) [START ON 11/02/2024] buprenorphine 10 mcg/hour 1 Patch (BUTRANS) 1 Patch TRANSDERMAL 1/WK And [START ON 11/02/2024] buprenorphine - REMOVE PATCH OTHER 1/WK And buprenorphine - VERIFY PATCH OTHER q 8 H traMADol 50 mg tab(s) (ULTRAM) 50 mg ORAL TID PRN Allergies: Allergies As of Date: 10/28/2024 (No Known Allergies) Fully Assessed 10/28/2024 Review of Systems Constitutional: Positive for malaise/fatigue. Eyes: Negative for blurred vision, double vision and photophobia. Respiratory: Negative for cough and shortness of breath. Cardiovascular: Negative for chest pain and palpitations. Gastrointestinal: Negative for abdominal pain, nausea and vomiting. Musculoskeletal: Hip pain with movement Neurological: Positive for weakness. Negative for dizziness and headaches. Psychiatric/Behavioral: Negative for hallucinations. Objective 10/30/24 2030 10/30/24 2317 10/31/24 0308 10/31/24 0743 BP: 108/66 111/52 124/59 Pulse: 98 84 69 66 Resp: 14 14 15 18 Temp: 37 ?C (98.6 ?F) 36.5 ?C (97.7 ?F) 36.7 ?C (98.1 ?F) TempSrc: Oral Oral Oral SpO2: 95% 98% 97% 99% Weight: Height: Physical Exam Vitals reviewed. Constitutional: General: He is awake. Interventions: Nasal cannula in place. Comments: frail HENT: Mouth/Throat: Mouth: Mucous membranes are dry. Cardiovascular: Rate and Rhythm: Regular rhythm. Tachycardia present. Pulmonary: Effort: Pulmonary effort is normal. Abdominal: General: Bowel sounds are normal. Palpations: Abdomen is soft. Tenderness: There is no abdominal tenderness. Musculoskeletal: Right lower leg: No edema. Left lower leg: No edema. Skin: General: Skin is warm and dry. Neurological: Mental Status: He is alert and oriented to person, place, and time. He is confused. Psychiatric: Attention and Perception: Attention normal. He does not perceive auditory or visual hallucinations. Mood and Affect: Mood and affect normal. Speech: Speech normal. Behavior: Behavior is not agitated, aggressive, hyperactive or combative. Behavior is cooperative. Thought Content: Thought content normal. Cognition and Memory: He exhibits impaired recent memory. 4AT: Alertness: Normal or mild sleepiness (0) AMT- age, , place, year: No mistakes (0) Attention: Can do 7 months backwards (0) Acute or fluctuating cognitive status: Yes (4) 4AT Score: 4/12, indicating possible delirium and/or cognitive impairment DELIRIUM ASSESSMENT: DEAR assessment: HIGH RISK BCAM: Negative during assessment Anti-psychotics in 48 hours: No Opioids/Benzodiazepines in 48 hrs: Yes , tramadol, oxycodone Anti-cholinergics on Board: No Restraints: No Indwelling Catheters: No Last BM: N/A, bowel regimen: miralax, senna-s Activity in the Past 24 hours: bed, PT/OT Need for Ambulatory Devices: Yes , walker (more content not included)... Normal [facility] THERAPY NTon 10-31-2024 THERAPY NT HNO ID: [id number] Author: RADHA PIMENTEL OTR/L Service: Occupational Therapy Author Type: Occupational Therapist Type: Therapy (PT/OT/Speech/Resp) Filed: 10/31/2024 14:24 Note Text: Occupational Therapy Evaluation Summary SERVICE DATE: 10/31/2024 SERVICE TIME: 1310 to 1350 ROOM: [id number] OT 6 Clicks Score: 13 DISCHARGE RECOMMENDATIONS Subacute/SNF Recommended Discharge Disposition Comments: Pt far below his baseline, requires skilled therapies Recommended Discharge Disposition Due to: ADL impairment, Functional deficits requiring ongoing therapy service prior to discharge home., Functional status decline ASSESSMENT Response to Therapy Interventions: Good Participation in Activities, Improved Tolerance for Activity, Low Activity Tolerance, Requires Additional Time to Complete Activities Pt agreeable to getting washed up, assisted to bring pillows out from behind pt to wash his back, pt able to wash his face and some of his arms/upperbody. Assisted heavily to complete lower extremity bathing, doff/don socks. Assisted to stand and take steps to edge of bed from chair. Assisted to return supine with heavy assist. Assisted with pericare and removed external cath. Washed around hip incision in supported supine. Assisted to scoot to head of bed. Pt educated on his hip precautions able to report 1/3 precautions. Provided pictures of precautions to help pt learn them better. Pt somewhat tremulous, less so after movement competed and provided warm blankets. Pt declines turning up heat in room. Notified RN found pills in the chair after transfer and placed them on the tray table. Administered 4AT which is an assessment for delirium and cognitive impairment. Pt scored 7. A score of 4 or above suggests possible delirium +/- cognitive impairment. A score of 1-3 suggests possible cognitive impairment. A sore of 0 suggests that delirium or severe cognitive impairment is unlikely. This not a diagnostic tool, more detailed assessment of mental status may be required to reach a diagnosis. PRECAUTIONS Fall Risk, Weight Bearing Restrictions, Posterior Hip Precautions, Bed/Chair Alarm brace for comfort per neuro Left Lower Extremity Weight Bearing Status: WBAT CURRENT HOSPITAL COURSE 84 y.o male s/p fall at [place], found to have L FNF fx, s/p L hip jose miguel 10/28, T12 compression fx, per neuro can wear brace for comfort Relevant Past Medical History: HTN, dementia, TIA HOME LIVING Patient Lives With: Facility Care Assistance Available: Part-Time Entry To Home: No Stairs Number Of Stairs To Bed/Bath: 0 Equipment Owned: Walker- Wheeled, Wheelchair- Manual PRIOR FUNCTIONAL LEVEL Required Assistance, Poor Historian Assistance Required With: Cleaning, Laundry, Meals, Medication Management, Shopping, Transportation Patient is a poor historian, reports ambulating with a walker lately due to recently falls, independent with ADLs/IADLs, patient reports still living home alone. Baseline Cognition: Oriented to self, Oriented to place, Oriented to time, Oriented to situation SUBJECTIVE Pt agreeable to OT, pleasantly confused COGNITION Responsiveness: Alert, Awake Follows Commands: 2-step Commands, Cueing Needed Cueing to Follow Commands: Moderate Executive Function Deficits: Safety Awareness, Problem Solving, Judgement 4AT Score: (!) 7 (10/31/24) Delirium Positive/Negative: Positive (10/31/24) THERAPY DIAGNOSIS Decreased activities of daily living (ADL), Reduced mobility-other, Muscle Weakness (generalized), Unsteadiness on feet, Abnormalities of gait and mobility-other TREATMENT INTERVENTIONS Evaluation, Self Snf Management (14647) Timed Code Treatment (minutes): 24 Skilled Treatment Time (minutes): 40 $ Evaluation - Moderate (88352) Billed Units: 1 unit Self Snf Management (32073) Treatment Minutes: 24 $ Self Snf Management (53734) Billed Units: 2 units TRAINING AND EDUCATION PROVIDED Adaptive Equipment/DME, Assistive Device Use, Bed Mobility, Benefits of In-Hospital Mobility, Functional Mobility Involving ADLs, Exercise Program, Role of Occupational Therapy, Positioning, Precautions/Restrictions, Sitting Balance to Improve [place] with ADLs/Self-Care, Standing Balance to Improve [place] with ADLs/Self-Care, Transfer - Sit to Stand, Upper Extremity Bathing, Upper Extremity Dressing, Lower Extremity Bathing, Lower Extremity Dressing THERAPEUTIC SKILLS USED Activity Dosing, Cues for Sequencing/Proper Technique for Activity, Cuing Visual, Cuing Verbal, Cuing Tactile, Physical Assist, Therapeutic Use of Self FUNCTIONAL STATUS Activities of Daily Living Assist Level Additional Information Feeding Set Up Grooming Moderate Assistance Bathing Upper Body Moderate Assistance Bathing Lower Body Maximal Assistance Dressing Upper Body Moderate Assistance Dressing Lower Body Moderate Assistance Toileting Maximal Assistance, A (more content not included)... Normal [facility] XR CHEST 1V FRONTAL PORTon 1 01-01-2024 XR CHEST 1V FRONTAL PORT * * *Final Repo rt* * * DATE OF EXAM: Oct 31 2024 11:56AM AKX [id number] - XR CHEST 1V FRONTAL PORT / PROCEDURE REASON: Evaluate tube, line or lead position * * * * Physician Interpretation * * * * EXAMINATION: CHEST RADIOGRAPH (PORTABLE SINGLE VIEW AP) Exam Date/Time: 10/31/2024 11:56 AM CLINICAL HISTORY: Evaluate tube, line or lead position, Shortness of breath MQ: XCPR_5 Comparison: 10/27/2024 CT scan RESULT: Lines, tubes, and devices: None. Lungs and pleura: Apical pleural nodularity noted with calcifications. Pleural nodularity noted in both upper lungs. No acute infiltrates or effusions. Cardiomediastinal silhouette: Stable cardiomediastinal silhouette. Other: Deformity right chest wall with old rib fractures. Left-sided rib fractures of varying age. There is suspicion of acute left fourth rib fracture laterally. IMPRESSION: Findings suspicious for acute left fourth rib fracture. Several healing left-sided rib fractures. Old right-sided rib fractures. Ski Technician: PSCB Transcribe Date/Time: Oct 31 2024 12:43P Dictated by : ALE BUSTILLO MD This examination was interpreted and the report reviewed and electronically signed by: ALE BUSTILLO MD on Oct 31 2024 12:46PM EST [id number] Normal [facility] Basic metabolic 2000 panelon 10-30-2024 Anion gap [Moles/Vol] 7 mmol/L Low 8-15 [facility] Comment on above: Order Comment: Speci men Type: BLOOD SPECIMENOrdering Facility: [facility] Address: [address] [place] [address] Performed By: #### 2 4321-2 ####[facility] LABORATORYCLIA [id number] [place] [address] [place] Calcium [Mass/Vol] 8.9 mg/dL Normal 8.5-10.2 [facility] Comment on above: Order Comment: Speci men Type: BLOOD SPECIMENOrdering Facility: [facility] Address: [address] [place] [address] Performed By: #### 2 4321-2 ####[facility] LABORATORYCLIA [id number] [place] [address] [place] Chloride [Moles/Vol] 102 mmol/L Normal 98-107 [facility] Comment on above: Order Comment: Speci men Type: BLOOD SPECIMENOrdering Facility: [facility] Address: [address] [place] [address] Performed By: #### 2 4321-2 ####[facility] LABORATORYCLIA [id number] [place] [address] [place] CO2 [Moles/Vol] 28 mmol/L Normal 22-30 [facility] Comment on above: Order Comment: Speci men Type: BLOOD SPECIMENOrdering Facility: [facility] Address: [address] [place] [address] Performed By: #### 2 4321-2 ####[facility] LABORATORYCLIA [id number] [place] [address] [place] Creatinine [Mass/Vol] 0.99 mg/dL Normal 0.73-1.22 [facility] Comment on above: Order Comment: Shakir melchor Type: BLOOD SPECIMENOrdering Facility: [facility] Address: [address] [place] [address] Performed By: #### 2 4321-2 ####[facility]ITAL[facility] [id number] [address] Creatinine and Glomerular filtration rate.predicted panel (S/P/Bld) 75 mL/min/1.73m??? Normal >=60 [facility] Comment on above: Order Comment: Shakir melchor Type: BLOOD SPECIMENOrdering Facility: [facility] Address: [address] [place] [address] Result Comment: Lilly mated Glomerular Filtration Rate (eGFR) is calculated using the 2020 CKD-EPI creatinine equation. This equation utilizes serum creatinine, sex, and age as parameters. The creatinine assay has traceable calibration to isotope dilution-mass spectrometry. Refer to KDIGO guidelines for clinical interpretation. In patients with unstable renal function, e.g. those with acute kidney injury, the eGFR may not accurately reflect actual GFR. Performed By: #### 2 4321-2 ####[facility] [id number] [address] [place] Glucose [Mass/Vol] 105 mg/dL High 74-99 [facility] Comment on above: Order Comment: Shakir melchor Type: BLOOD SPECIMENOrdering Facility: [facility] Address: [address] [place] [address] Result Comment: The [place] Diabetes Association (ADA) provides guidance for cutoff values for fasting glucose and random glucose. The ADA defines fasting as no caloric intake for at least 8 hours. Fasting plasma glucose results between 100 to 125 mg/dL indicate increased risk for diabetes (prediabetes). Fasting plasma glucose results greater than or equal to 126 mg/dL meet the criteria for diagnosis of diabetes. In the absence of unequivocal hyperglycemia, results should be confirmed by repeat testing. In a patient with classic symptoms of hyperglycemia or hyperglycemic crisis, random plasma glucose results greater than or equal to 200 mg/dL meet the criteria for diagnosis of diabetes. Reference: Standards of Medical Care in Diabetes 2016, [place] [employer]. Diabetes Care. 2016.39(Suppl 1). Performed By: #### 2 4321-2 ####[facility] LABORATORYCLIA [id number] [address] STATES OF [facility] Potassium [Moles/Vol] 4.5 mmol/L Normal 3.7-5.1 [facility] Comment on above: Order Comment: Speci men Type: BLOOD SPECIMENOrdering Facility: [facility] Address: [address] [place] [address] Performed By: #### 2 4321-2 ####[facility] LABORATORYCLIA [id number] [address] Sodium [Moles/Vol] 137 mmol/L Normal 136-144 [facility] Comment on above: Order Comment: Speci men Type: BLOOD SPECIMENOrdering Facility: [facility] Address: [address] [place] [address] Performed By: #### 2 4321-2 ####[facility] LABORATORYCLIA [id number] [address] Urea nitrogen [Mass/Vol] 24 mg/dL Normal 9-24 [facility] Comment on above: Order Comment: Speci men Type: BLOOD SPECIMENOrdering Facility: [facility] Address: [address] [place] [address] Performed By: #### 2 4321-2 ####[facility] LABORATORYCLIA [id number] [address] CBC panel Auto (Bld)on 10-30 Erythrocyte distribution width (RBC) [Ratio] 14.2 % Normal 11.5-15.0 [facility] Comment on above: Order Comment: Speci men Type: BLOOD SPECIMENOrdering Facility: [facility] Address: [address] [place] [address] Performed By: #### 5 8410-2 ####[facility] LABORATORYCLIA [id number] [address] STATES OF [facility] Hematocrit (Bld) [Volume fraction] 28.0 % Low 39.0-51.0 [facility] Comment on above: Order Comment: Speci men Type: BLOOD SPECIMENOrdering Facility: [facility] Address: [address] [place] [address] Performed By: #### 5 8410-2 ####[facility] LABORATORYCLIA [id number] [address] OF [facility] Hemoglobin (Bld) [Mass/Vol] 9.5 g/dL Low 13.0-17.0 [facility] Comment on above: Order Comment: Speci men Type: BLOOD SPECIMENOrdering Facility: [facility] Address: [address] [place] [address] Performed By: #### 5 8410-2 ####[facility] LABORATORYCLIA [id number] [address] MCH (RBC) [Entitic mass] 33.8 pg Normal 26.0-34.0 [facility] Comment on above: Order Comment: Speci men Type: BLOOD SPECIMENOrdering Facility: [facility] Address: [address] [place] [address] Performed By: #### 5 8410-2 ####[facility] LABORATORYCLIA [id number] [address] [place] MCHC (RBC) [Mass/Vol] 33.9 g/dL Normal 30.5-36.0 [facility] Comment on above: Order Comment: Speci men Type: BLOOD SPECIMENOrdering Facility: [facility] Address: [address] [place] [address] Performed By: #### 5 8410-2 ####[facility] LABORATORYCLIA [id number] [address] MCV (RBC) [Entitic vol] 99.6 fL Normal 80.0-100.0 [facility] Comment on above: Order Comment: Speci men Type: BLOOD SPECIMENOrdering Facility: [facility] Address: [address] [place] [address] Performed By: #### 5 8410-2 ####[facility] LABORATORYCLIA [id number] [place] [address] [place] Nucleated RBC (Bld) [#/Vol] 10*3/uL Normal <0.01 [facility] Comment on above: Order Comment: Speci men Type: BLOOD SPECIMENOrdering Facility: [facility] Address: [address] [place] [address] Performed By: #### 5 8410-2 ####[facility] LABORATORYCLIA [id number] [address] [place] Platelet mean volume (Bld) [Entitic vol] 12.1 fL Normal 9.0-12.7 [facility] Comment on above: Order Comment: Speci men Type: BLOOD SPECIMENOrdering Facility: [facility] Address: [address] [place] [address] Performed By: #### 5 8410-2 ####[facility] LABORATORYCLIA [id number] [address] [place] Platelets (Bld) [#/Vol] 118 10*3/uL Low 150-400 [facility] Comment on above: Order Comment: Speci men Type: BLOOD SPECIMENOrdering Facility: [facility] Address: [address] [place] [address] Performed By: #### 5 8410-2 ####[facility] LABORATORYCLIA [id number] [place] [address] [place] RBC (Bld) [#/Vol] 2.81 10*6/uL Low 4.20-6.00 [facility] Comment on above: Order Comment: Speci men Type: BLOOD SPECIMENOrdering Facility: [facility] Address: [address] [place] [address] Performed By: #### 5 8410-2 ####[facility] LABORATORYCLIA [id number] [place] [address] [place] WBC (Bld) [#/Vol] 15.48 10*3/uL High 3.70-11.00 [facility] Comment on above: Order Comment: Speci men Type: BLOOD SPECIMENOrdering Facility: [facility] Address: [address] [place] [address] Performed By: #### 5 8410-2 ####[facility] LABORATORYCLIA [id number] [address] [place] URINALYSIS, REFLEX MICROSCOP ICon 10-30-2024 Bilirubin Ql (U) Negative Normal Negative [facility] Comment on above: Order Comment: Speci men Type: URINE SPECIMENOrdering Facility: [facility] Address: [address] [place] [address] Performed By: #### L [id number] ####[facility] LABORATORYCLIA [id number] [address] Clarity (Unsp spec) Clear Normal Clear [facility] Comment on above: Order Comment: Speci men Type: URINE SPECIMENOrdering Facility: [facility] Address: [address] [place] [address] Performed By: #### L [id number] ####[facility] LABORATORYCLIA [id number] [address] STATES OF [facility] Color (U) Yellow Normal yellow [facility] Comment on above: Order Comment: Speci men Type: URINE SPECIMENOrdering Facility: [facility] Address: [address] [place] [address] Performed By: #### L [id number] ####[facility] LABORATORYCLIA [id number] [address] Glucose Test strip (U) [Mass/Vol] Negative Normal Trace, Negative [facility] Comment on above: Order Comment: Speci men Type: URINE SPECIMENOrdering Facility: [facility] Address: [address] [place] [address] Performed By: #### L [id number] ####[facility] LABORATORYCLIA [id number] [address] [place] Hemoglobin Ql (U) Negative Normal Negative, Trace [facility] Comment on above: Order Comment: Speci men Type: URINE SPECIMENOrdering Facility: [facility] Address: [address] [place] [address] Performed By: #### L [id number] ####[facility] LABORATORYCLIA [id number] [address] Hyaline casts (Urine sed) [#/Area] 1-3 /LPF Abnormal 0 /LPF [facility] Comment on above: Order Comment: Speci men Type: URINE SPECIMENOrdering Facility: [facility] Address: [address] [place] [address] Performed By: #### L [id number] ####[facility] LABORATORYCLIA [id number] [address] Ketones Ql (U) Trace Normal Negative, Trace [facility] Comment on above: Order Comment: Speci men Type: URINE SPECIMENOrdering Facility: [facility] Address: [address] [place] [address] Performed By: #### L [id number] ####[facility] LABORATORYCLIA [id number] [address] Leukocyte esterase Test strip Ql (U) Negative Normal Negative, 25 Lyndsey/uL [facility] Comment on above: Order Comment: Speci men Type: URINE SPECIMENOrdering Facility: [facility] Address: [address] [place] [address] Performed By: #### L [id number] ####[facility] LABORATORYCLIA [id number] [address] STATES OF [facility] Nitrite Ql (U) Negative Normal Negative [facility] Comment on above: Order Comment: Speci men Type: URINE SPECIMENOrdering Facility: [facility] Address: [address] [place] [address] Performed By: #### L [id number] ####[facility] LABORATORYCLIA [id number] [address] [place] pH (U) 5.5 [pH] Normal 5.0-8.0 [facility] Comment on above: Order Comment: Speci men Type: URINE SPECIMENOrdering Facility: [facility] Address: [address] [place] [address] Performed By: #### L [id number] ####[facility] LABORATORYCLIA [id number] [address] Protein (U) [Mass/Vol] Trace Normal Trace , Negative [facility] Comment on above: Order Comment: Speci men Type: URINE SPECIMENOrdering Facility: [facility] Address: [address] [place] [address] Performed By: #### L [id number] ####[facility] LABORATORYCLIA [id number] [address] RBC LM.HPF (Urine sed) [#/Area] 0-3 /HPF Normal 0-3 /HPF [facility] Comment on above: Order Comment: Speci men Type: URINE SPECIMENOrdering Facility: [facility] Address: [address] [place] [address] Performed By: #### L [id number] ####[facility] LABORATORYCLIA [id number] [address] Specific gravity (U) [Rel density] 1.025 Normal 1.005-1.03 0 [facility] Comment on above: Order Comment: Speci men Type: URINE SPECIMENOrdering Facility: [facility] Address: [address] [place] [address] Performed By: #### L [id number] ####[facility] LABORATORYCLIA [id number] [address] Urobilinogen Ql (U) Normal Normal Normal [facility] Comment on above: Order Comment: Speci men Type: URINE SPECIMENOrdering Facility: [facility] Address: [address] [place] [address] Performed By: #### L [id number] ####[facility] LABORATORYCLIA [id number] [address] [place] WBC LM.HPF (Urine sed) [#/Area] 0-5 /HPF Normal 0-5 /HPF [facility] Comment on above: Order Comment: Speci men Type: URINE SPECIMENOrdering Facility: [facility] Address: [address] [place] [address] Performed By: #### L [id number] ####[facility] LABORATORYCLIA [id number] [address] [place] 25(OH)D3 SerPl-mCncon 2023 25-hydroxyvitamin D3 [Mass/Vol] 32.6 ng/mL Normal >=30.0 [facility] Comment on above: Order Comment: Speci men Type: BLOOD SPECIMENOrdering Facility: [facility] Address: [address] [place] [address] Result Comment: Clas sification of 25 [place] Vitamin D status: Deficiency: <= 20.0 ng/ml. Insufficiency: 21.0-29.0 ng/ml. Sufficiency: >= 30.0 ng/ml. Performed By: #### 1 989-3 ####[facility] LABORATORYCLIA [id number] [address] [place] Basic metabolic 2000 panelon 10-29-2024 Anion gap [Moles/Vol] 9 mmol/L Normal 8-15 [facility] Comment on above: Order Comment: Speci men Type: BLOOD SPECIMENOrdering Facility: [facility] Address: [address] [place] [address] Performed By: #### 2 4321-2 ####[facility] LABORATORYCLIA [id number] [place] [address] [place] Calcium [Mass/Vol] 8.7 mg/dL Normal 8.5-10.2 [facility] Comment on above: Order Comment: Speci men Type: BLOOD SPECIMENOrdering Facility: [facility] Address: [address] [place] [address] Performed By: #### 2 4321-2 ####[facility] LABORATORYCLIA [id number] [place] [address] [place] Chloride [Moles/Vol] 101 mmol/L Normal 98-107 [facility] Comment on above: Order Comment: Speci men Type: BLOOD SPECIMENOrdering Facility: [facility] Address: [address] [place] [address] Performed By: #### 2 4321-2 ####[facility] LABORATORYCLIA [id number] [place] [id number] [place] CO2 [Moles/Vol] 28 mmol/L Normal 22-30 [facility] Comment on above: Order Comment: Speci men Type: BLOOD SPECIMENOrdering Facility: [facility] Address: [address] [place] [address] Performed By: #### 2 4321-2 ####[facility] LABORATORYCLIA [id number] [address] [place] Creatinine [Mass/Vol] 1.20 mg/dL Normal 0.73-1.22 [facility] Comment on above: Order Comment: Speci men Type: BLOOD SPECIMENOrdering Facility: [facility] Address: [address] [place] [address] Performed By: #### 2 4321-2 ####[facility] LABORATORYCLIA [id number] [address] Creatinine and Glomerular filtration rate.predicted panel (S/P/Bld) 59 mL/min/1.73m??? Low >=60 [facility] Comment on above: Order Comment: Speci men Type: BLOOD SPECIMENOrdering Facility: [facility] Address: [address] [place] [address] Result Comment: Lilly mated Glomerular Filtration Rate (eGFR) is calculated using the 2020 CKD-EPI creatinine equation. This equation utilizes serum creatinine, sex, and age as parameters. The creatinine assay has traceable calibration to isotope dilution-mass spectrometry. Refer to KDIGO guidelines for clinical interpretation. In patients with unstable renal function, e.g. those with acute kidney injury, the eGFR may not accurately reflect actual GFR. Performed By: #### 2 4321-2 ####[facility] LABORATORYCLIA [id number] [address] [place] Glucose [Mass/Vol] 109 mg/dL High 74-99 [facility] Comment on above: Order Comment: Speci men Type: BLOOD SPECIMENOrdering Facility: [facility] Address: [address] [place] [address] Result Comment: The [place] Diabetes Association (ADA) provides guidance for cutoff values for fasting glucose and random glucose. The ADA defines fasting as no caloric intake for at least 8 hours. Fasting plasma glucose results between 100 to 125 mg/dL indicate increased risk for diabetes (prediabetes). Fasting plasma glucose results greater than or equal to 126 mg/dL meet the criteria for diagnosis of diabetes. In the absence of unequivocal hyperglycemia, results should be confirmed by repeat testing. In a patient with classic symptoms of hyperglycemia or hyperglycemic crisis, random plasma glucose results greater than or equal to 200 mg/dL meet the criteria for diagnosis of diabetes. Reference: Standards of Medical Care in Diabetes 2016, [place] [employer]. Diabetes Care. 2016.39(Suppl 1). Performed By: #### 2 4321-2 ####[facility] LABORATORYCLIA [id number] [place] [address] [place] Potassium [Moles/Vol] 4.2 mmol/L Normal 3.7-5.1 [facility] Comment on above: Order Comment: Shakir men Type: BLOOD SPECIMENOrdering Facility: [facility] Address: [address] [place] [address] Performed By: #### 2 4321-2 ####[facility] LABORATORYCLIA [id number] [place] [address] [place] Sodium [Moles/Vol] 138 mmol/L Normal 136-144 [facility] Comment on above: Order Comment: Speci men Type: BLOOD SPECIMENOrdering Facility: [facility] Address: [address] [place] [address] Performed By: #### 2 4321-2 ####[facility] LABORATORYCLIA [id number] [place] [address] [place] Urea nitrogen [Mass/Vol] 23 mg/dL Normal 9-24 [facility] Comment on above: Order Comment: Lancei men Type: BLOOD SPECIMENOrdering Facility: [facility] Address: [address] [place] [address] Performed By: #### 2 4321-2 ####[facility] LABORATORYCLIA [id number] [place] [address] [place] Anion gap [Moles/Vol] 11 mmol/L Normal 8-15 [facility] Comment on above: Order Comment: Speci men Type: BLOOD SPECIMENOrdering Facility: [facility] Address: [address] [place] [address] Performed By: #### 2 4321-2 ####[facility] LABORATORYCLIA [id number] [place] [address] [place] Calcium [Mass/Vol] 9.1 mg/dL Normal 8.5-10.2 [facility] Comment on above: Order Comment: Speci men Type: BLOOD SPECIMENOrdering Facility: [facility] Address: [address] [place] [address] Performed By: #### 2 4321-2 ####[facility] LABORATORYCLIA [id number] [place] [address] [place] Chloride [Moles/Vol] 98 mmol/L Normal 98-107 [facility] Comment on above: Order Comment: Speci men Type: BLOOD SPECIMENOrdering Facility: [facility] Address: [address] [place] [address] Performed By: #### 2 4321-2 ####[facility] LABORATORYCLIA [id number] [place] [address] [place] CO2 [Moles/Vol] 25 mmol/L Normal 22-30 [facility] Comment on above: Order Comment: Speci men Type: BLOOD SPECIMENOrdering Facility: [facility] Address: [address] [place] [address] Performed By: #### 2 4321-2 ####[facility]ORATORYCLIA [id number] [place] [address] [place] Creatinine [Mass/Vol] 1.03 mg/dL Normal 0.73-1.22 [facility] Comment on above: Order Comment: Speci men Type: BLOOD SPECIMENOrdering Facility: [facility] Address: [address] [place] [address] Performed By: #### 2 4321-2 ####[facility]LECLIA [id number] [place] [id number] [place] Creatinine and Glomerular filtration rate.predicted panel (S/P/Bld) 71 mL/min/1.73m??? Normal >=60 [facility] Comment on above: Order Comment: Shakir melchor Type: BLOOD SPECIMENOrdering Facility: [facility] Address: [address] [place] [address] Result Comment: Lilly mated Glomerular Filtration Rate (eGFR) is calculated using the 2020 CKD-EPI creatinine equation. This equation utilizes serum creatinine, sex, and age as parameters. The creatinine assay has traceable calibration to isotope dilution-mass spectrometry. Refer to KDIGO guidelines for clinical interpretation. In patients with unstable renal function, e.g. those with acute kidney injury, the eGFR may not accurately reflect actual GFR. Performed By: #### 2 4321-2 ####[facility]ITAL[facility] [id number] [place] [address] [place] Glucose [Mass/Vol] 118 mg/dL High 74-99 [facility] Comment on above: Order Comment: Shakir melchor Type: BLOOD SPECIMENOrdering Facility: [facility] Address: [address] [place] [address] Result Comment: The [place] Diabetes Association (ADA) provides guidance for cutoff values for fasting glucose and random glucose. The ADA defines fasting as no caloric intake for at least 8 hours. Fasting plasma glucose results between 100 to 125 mg/dL indicate increased risk for diabetes (prediabetes). Fasting plasma glucose results greater than or equal to 126 mg/dL meet the criteria for diagnosis of diabetes. In the absence of unequivocal hyperglycemia, results should be confirmed by repeat testing. In a patient with classic symptoms of hyperglycemia or hyperglycemic crisis, random plasma glucose results greater than or equal to 200 mg/dL meet the criteria for diagnosis of diabetes. Reference: Standards of Medical Care in Diabetes 2016, [place] Diabetes Association. Diabetes Care. 2016.39(Suppl 1). Performed By: #### 2 4321-2 ####[facility] LABORATORYCLIA [id number] [address] [place] Potassium [Moles/Vol] 5.2 mmol/L High 3.7-5.1 [facility] Comment on above: Order Comment: Speci men Type: BLOOD SPECIMENOrdering Facility: [facility] Address: [address] [place] [address] Performed By: #### 2 4321-2 ####[facility] LABORATORYCLIA [id number] [address] [place] Sodium [Moles/Vol] 134 mmol/L Low 136-144 [facility] Comment on above: Order Comment: Speci men Type: BLOOD SPECIMENOrdering Facility: [facility] Address: [address] [place] [address] Performed By: #### 2 4321-2 ####[facility] LABORATORYCLIA [id number] [address] [place] Urea nitrogen [Mass/Vol] 22 mg/dL Normal 9-24 [facility] Comment on above: Order Comment: Speci men Type: BLOOD SPECIMENOrdering Facility: [facility] Address: [address] [place] [address] Performed By: #### 2 4321-2 ####[facility] LABORATORYCLIA [id number] [address] [place] CBC panel Auto (Bld)on 10-29 Erythrocyte distribution width (RBC) [Ratio] 14.4 % Normal 11.5-15.0 [facility] Comment on above: Order Comment: Speci men Type: BLOOD SPECIMENOrdering Facility: [facility] Address: [address] [place] [address] Performed By: #### 5 8410-2 ####[facility] LABORATORYCLIA [id number] [address] [place] Hematocrit (Bld) [Volume fraction] 30.6 % Low 39.0-51.0 [facility] Comment on above: Order Comment: Speci men Type: BLOOD SPECIMENOrdering Facility: [facility] Address: [address] [place] [address] Performed By: #### 5 8410-2 ####[facility] LABORATORYCLIA [id number] [address] Hemoglobin (Bld) [Mass/Vol] 10.2 g/dL Low 13.0-17.0 [facility] Comment on above: Order Comment: Speci men Type: BLOOD SPECIMENOrdering Facility: [facility] Address: [address] [place] [address] Performed By: #### 5 8410-2 ####[facility] LABORATORYCLIA [id number] [address] MCH (RBC) [Entitic mass] 33.4 pg Normal 26.0-34.0 [facility] Comment on above: Order Comment: Speci men Type: BLOOD SPECIMENOrdering Facility: [facility] Address: [address] [place] [address] Performed By: #### 5 8410-2 ####[facility] LABORATORYCLIA [id number] [address] MCHC (RBC) [Mass/Vol] 33.3 g/dL Normal 30.5-36.0 [facility] Comment on above: Order Comment: Speci men Type: BLOOD SPECIMENOrdering Facility: [facility] Address: [address] [place] [address] Performed By: #### 5 8410-2 ####[facility] LABORATORYCLIA [id number] [address] MCV (RBC) [Entitic vol] 100.3 fL High 80.0-100.0 [facility] Comment on above: Order Comment: Speci men Type: BLOOD SPECIMENOrdering Facility: [facility] Address: [address] [place] [address] Performed By: #### 5 8410-2 ####[facility] LABORATORYCLIA [id number] [address] [facility] Nucleated RBC (Bld) [#/Vol] 10*3/uL Normal <0.01 [facility] Comment on above: Order Comment: Speci men Type: BLOOD SPECIMENOrdering Facility: [facility] Address: [address] [place] [address] Performed By: #### 5 8410-2 ####[facility] LABORATORYCLIA [id number] [address] [place] Platelet mean volume (Bld) [Entitic vol] 12.5 fL Normal 9.0-12.7 [facility] Comment on above: Order Comment: Speci men Type: BLOOD SPECIMENOrdering Facility: [facility] Address: [address] [place] [address] Performed By: #### 5 8410-2 ####[facility] LABORATORYCLIA [id number] [address] [place] Platelets (Bld) [#/Vol] 127 10*3/uL Low 150-400 [facility] Comment on above: Order Comment: Speci men Type: BLOOD SPECIMENOrdering Facility: [facility] Address: [address] [place] [address] Performed By: #### 5 8410-2 ####[facility] LABORATORYCLIA [id number] [place] [address] [place] RBC (Bld) [#/Vol] 3.05 10*6/uL Low 4.20-6.00 [facility] Comment on above: Order Comment: Speci men Type: BLOOD SPECIMENOrdering Facility: [facility] Address: [address] [place] [address] Performed By: #### 5 8410-2 ####[facility] LABORATORYCLIA [id number] [place] [address] [place] WBC (Bld) [#/Vol] 13.10 10*3/uL High 3.70-11.00 [facility] Comment on above: Order Comment: Speci men Type: BLOOD SPECIMENOrdering Facility: [facility] Address: [address] [place] [address] Performed By: #### 5 8410-2 ####[facility] LABORATORYCLIA [id number] [place] [address] [place] CONSULTon 10-29-2024 CONSULT HNO ID: [id number] Author: KEYONA MENDOZA MD Service: Pain Management Author Type: Physician Type: Consults Filed: 10/29/2024 14:13 Note Text: Name: ANASTACIO PATEL Age: [age] year old PAIN MANAGEMENT: s/p Fall, left femoral neck fracture s/p left hip hemiarthroplasty, progression of T12 compression fracture Pain Description: Patient alert, pleasantly confused. Complaining of both neck pain and back ache. Interval HPI: 24H Comfort Meds: Tylenol 1 g every 8 hours x 1 Butrans 10 mcg weekly patch (placed 10/26) Gabapentin 300 mg every 12 hours x 2 Dilaudid 0.2 mg IV every 3 hours as needed x 0 Oxycodone 2.5-5 mg every 4 hours as needed x 0 Melatonin 3 mg x 1 Zanaflex 4 mg 3 times daily as needed x 0 Subjective HPI: 84-year-old male with history of debility, dementia presented 10/28 after a fall in which she sustained left femoral neck fracture and progression of T12 compression fracture. Patient underwent left hip hemiarthroplasty 10/28. Postop course complicated by delirium. He was seen by neurosurgery with recommendation for nonoperative management of T12 fracture including wearing brace as needed for comfort. Patient is unable to provide much of past history. He is prescribed Butrans 10 mcg patch weekly per [place] pain management. He lives at [facility] in [place]; he uses a cane with ambulation. OARRS Review: 20 prescriptions from 4 prescribers. Opiate dependent. Most recent prescriptions: 10/25 Butrans 10 mcg patch #4 10/06 tramadol 50 mg #30 10/04 Butrans 5 mcg patch #4 08/04 gabapentin 300 mg #60 Current Facility-Administered Medications Medication Dose Route Frequency Provider Last Rate Last Admin NaCl 0.9% iv flush bag 20 mL INTRAVENOUS PRN William Larson MD docusate sodium 100 mg cap(s) (COLACE) 100 mg ORAL DAILY William Larson MD 100 mg at 10/28/24 0952 senna-docusate 8.6-50 mg 1 tablet (SENNA-S) 1 tablet ORAL BID William Larson MD 1 tablet at 10/28/241957 polyethylene glycol 3350 17 g packet 17 g ORAL DAILY William Larson MD donepezil 10 mg tab(s) (ARICEPT) 10 mg ORAL AT BEDTIME William Larson MD 10 mg at 10/28/241957 gabapentin 300 mg cap(s) (NEURONTIN) 300 mg ORAL BID William Larson MD 300 mg at 10/28/241957 finasteride 1 mg tab(s) (PROPECIA) 1 mg ORAL DAILY William Larson MD 1 mg at 10/28/24951 Ipratropium [place] 2 Pierce nasal spray (ATROVENT) 2 Pierce NASAL q 12 H William Larson MD 2 Pierce at 10/28/24 2100 lactated ringers iv infusion 100 mL/hr INTRAVENOUS CONTINUOUS William Larson MD 100 mL/hr at 10/29/24 0603 100 mL/hr at 10/29/24 0603 ondansetron 4 mg tab(s) (ZOFRAN) 4 mg ORAL q 6 H PRN William Larson MD Or ondansetron (PF) 4 mg injection (ZOFRAN) 4 mg INTRAVENOUS q 6 H PRN William Larson MD oxyCODONE IR 2.5-5 mg tab(s) (ROXICODONE) 2.5-5 mg ORAL q 4 H PRN William Larson MD ipratropium-albuterol 3 mL nebulizer solution (DUONEB) 3 mL INHALATION q 6 H PRN William Larson MD acetaminophen 1,000 mg tab(s) (TYLENOL) 1,000 mg ORAL q 8 H William Larson MD 1,000 mg at 10/29/2452 melatonin 3 mg tab(s) 3 mg ORAL DAILY (8 PM) William Larson MD 3 mg at 10/28/241957 tiZANidine 4 mg tab(s) (ZANAFLEX) 4 mg ORAL TID PRN William Larson MD HYDROmorphone 0.2 mg injection (DILAUDID) 0.2 mg INTRAVENOUS q 3 H PRN William Larson MD enoxaparin 40 mg injection (LOVENOX) 40 mg SUBCUTANEOUS q 24 HR William Larson MD ceFAZolin iv piggyback 2 g in D5W (iso-osmotic) 100 mL (ANCEF) 2 g INTRAVENOUS q 8 HR William Larson MD Stopped at 10/29/24 0200 iv contrast (radiology procedure) INTRAVENOUS DIRECTED PRN Cayla Byrne DO docusate sodium (COLACE) 100 mg capsule, Take 1 capsule by mouth two times a day as needed for constipation., Disp: 60 capsule, Rfl: 11 traMADol (ULTRAM) 50 mg tablet, Take 1 tablet by mouth every 8 hours as needed for pain for up to 60 days., Disp: 90 tablet, Rfl: 1 finasteride (PROPECIA) 1 mg tablet, Take 1 tablet by mouth once daily., Disp: 90 tablet, Rfl: 3 donepezil (ARICEPT) 10 mg tablet, Take 1 tablet by mouth daily at bedtime. Per Neuro: Dr. Gentile., Disp: , Rfl: Ipratropium [place] (ATROVENT) 21 mcg (0.03 %) nasal spray, Use 2 Sprays in the nose every 12 hours., Disp: 30 mL, Rfl: 5 gabapentin (NEURONTIN) 300 mg capsule, Take 1 capsule by mouth three times daily for 180 days. (Patient taking differently: Take 300 mg by mouth two times a day.), Disp: 90 capsule, Rfl: 5 losartan (COZAAR) 100 mg tablet, Take 100 mg by mouth once daily. Take one tablet daily, Disp: , Rfl: baclofen 10 mg tablet, Take 1 tablet by mouth three times daily as needed (muscle spasms)., Disp: , Rfl: acetaminophen (TYLENOL EXTRA STRENGTH) 500 mg tablet, Take 2 tablets by mouth every 8 hours as needed for pain. (Patient taking differently: Take 1,000 mg by mouth ever (more content not included)... Normal [facility] ECG COMPLETEon 10-29-2024 ECG COMPLETE Ventricular Rate : 8 3 BPM Atrial Rate : 83 BPM P-R Interval : 204 ms QRS Duration : 78 ms Q-T Interval : 370 ms QTC Calculation(Bazett) : 434 ms Calculated P Blanco : 25 degrees Calculated R Blanco : -7 degrees Calculated T Blanco : 81 degrees SINUS RHYTHM WITH PREMATURE ATRIAL COMPLEXES LOW VOLTAGE QRS SEPTAL INFARCT , AGE UNDETERMINED ABNORMAL ECG WHEN COMPARED WITH ECG OF 28-Oct-2024 18:59, PREMATURE ATRIAL COMPLEXES ARE NOW PRESENT QRS AXIS SHIFTED RIGHT SEPTAL INFARCT IS NOW PRESENT NONSPECIFIC T WAVE ABNORMALITY NOW EVIDENT IN ANTERIOR LEADS Confirmed by MD LEWIS VINAYAK ([id number]) on 10/30/2024 2:07:18 PM NAME : ANASTACIO PATEL PID : [id number] : 1940 Gender : Male Race : ORD : [id number] Procedure Date : Oct 29 2024 06:33:24 Edit Date : Oct 30 2024 14:07:24 Diagnosis: SINUS RHYTHM WITH PREMATURE ATRIAL COMPLEXES LOW VOLTAGE QRS SEPTAL INFARCT , AGE UNDETERMINED ABNORMAL ECG WHEN COMPARED WITH ECG OF 28-Oct-2024 18:59, PREMATURE ATRIAL COMPLEXES ARE NOW PRESENT QRS AXIS SHIFTED RIGHT SEPTAL INFARCT IS NOW PRESENT NONSPECIFIC T WAVE ABNORMALITY NOW EVIDENT IN ANTERIOR LEADS Confirmed by MD LEWIS VINAYAK ([id number]) on 10/30/2024 2:07:18 PM Test Reason : Tachycardia Location : 200 : [facility] 5219 Overread By : MD LEWIS VINAYAK Edited By : MD LEWIS VINAYAK Referred By : , Acquired by : FRANCHESCA JORDAN [facility] NUTRITIONon 10-29-2024 NUTRITION HNO ID: [id number] Author: DENNIS TALBOT RD Service: Nutrition Therapy Author Type: Registered Dietitian Type: Nutrition Filed: 10/29/2024 14:19 Note Text: INITIAL ASSESSMENT SERVICE DATE: 10/29/2024 SERVICE TIME: Nutrition Assessment: Recommended Malnutrition Diagnosis: Severe Protein-Calorie Malnutrition In the context of: Social/Environmental Circumstance Based on: Muscle Loss, Subcutaneous Fat Loss Nutrition Diagnosis: Problem: Suboptimal oral intake Related to: Inability to consume sufficient nutrients As evidenced by: Intake records Care Plan: Continue current diet Supplements: Mighty Shake No Sugar Added, Magic Cup Monitor and Evaluation: Meet greater than 75% of estimated needs, Monitor bowel function, Monitor labs, I/Os, vital signs, weight Discharge Recommendations: Diet;Oral Supplements Diet: Regular HPI: Pt admitted for L hip fracture s/p repair 10/28/24. H/o HTN, dementia, and recurrent falls. Eating 50% of meals. Intake History: Nutrition Intake Prior to Admission: Greater than 75% estimated energy needs greater than or equal to 1 month Dosing Weight: 50.8 kg (112 lb) Dosing Weight Type: Current weight Estimated kilocalorie needs: 5514-6313 Calorie Calculation Method: 30-35 kcals/kg Estimated protein needs (grams): 65-85 Grams protein determined by: 1.3 - 1.7 g/kg Diet Orders (From admission, onward) Start Ordered 10/28/24 1800 DIET REGULAR START NOW 10/28/24 1745 Anthropometrics: Height: 172.7 cm (5' 8") Weight: 51.1 kg (112 lb 10.5 oz) Usual Weight: 49 kg (108 lb) 12/25/23 Usual Weight Obtained From: Chart Review Body mass index is 17.13 kg/m?. Weight change percentage over time: 3.7% wt gain x 10 months, including a 1.7% wt loss x 8 months Weight Change: Potentially clinically significant but does not meet criteria to support malnutrition diagnosis Physical Exam: Subcutaneous fat loss: Subcutaneous Fat Loss Assessed Orbital: Hollow look, depressions around eye (Severe) Upper Arm (Triceps): Very little space between folds, fingers practically touching (Severe) Thoracic and Lumbar: Depression between ribs very apparent, iliac crest very prominent (Severe) Muscle loss: Muscle Loss Assessed Temporalis: Deep hollowing/scooping, bone structures very defined (Severe) Clavicle: Protruding and prominent bone (Severe) Acromion: Notable depression, prominent, visible bone (Severe) Interosseous (Hand): Slight depression of muscle (Mod) Quadricep: Depression/line on thigh, kneecap prominent (Severe) Gastrocnemius: Well developed bulb of muscle (No loss) Potential micronutrient deficiency: No deficiency identified Edema/Ascites: No edema GI Symptoms: None Functional Status: Regressed Potential Signs of Inflammation: Acute post-operative, Leukocytosis, Hyperglycemia MNT Billing: $ Initial Assessment: 1-15 minutes SIGNATURE: Dennis Talbot RD PATIENT NAME: Anastacio Patel DATE: October 29, 2024 TIME: 7:42 AM Normal [facility] THERAPY NTon 10-29-2024 THERAPY NT HNO ID: [id number] Author: PONCHO TREVIZO PT Service: Physical Therapy Author Type: Physical Therapist Type: Therapy (PT/OT/Speech/Resp) Filed: 10/29/2024 15:56 Note Text: Physical Therapy Evaluation Summary SERVICE DATE: 10/29/2024 SERVICE TIME: 1452 to 1516 ROOM: [place] [address] PT 6 Clicks Score: 10 DISCHARGE RECOMMENDATIONS Subacute/SNF Recommended Discharge Disposition Comments: Patient well below functional baseline, recommend SNF at discharge Recommended Discharge Disposition Due to: Functional deficits requiring ongoing therapy service prior to discharge home., Balance deficits, Functional status decline ASSESSMENT Response to Therapy Interventions: Cognitive Deficits, Good Participation in Activities, Low Activity Tolerance, Needs Frequent Redirection or Reinstruction, Requires Additional Time to Complete Activities, Pain PRECAUTIONS Fall Risk, Weight Bearing Restrictions, Posterior Hip Precautions, Bed/Chair Alarm brace for comfort per neuro Left Lower Extremity Weight Bearing Status: WBAT CURRENT HOSPITAL COURSE 84 y.o male s/p fall at [place], found to have L FNF fx, s/p L hip jose miguel 10/28, T12 compression fx, per neuro can wear brace for comfort Relevant Past Medical History: HTN, dementia, TIA HOME LIVING Patient Lives With: Facility Care Assistance Available: Part-Time Entry To Home: No Stairs Number Of Stairs To Bed/Bath: 0 Equipment Owned: Walker- Wheeled, Wheelchair- Manual PRIOR FUNCTIONAL LEVEL Required Assistance, Poor Historian Assistance Required With: Cleaning, Laundry, Meals, Medication Management, Shopping, Transportation Patient is a poor historian, reports ambulating with a walker, independent with ADLs/IADLs, patient reports still living home alone SUBJECTIVE Patient pleasantly confused, agreeable to PT session THERAPY DIAGNOSIS Reduced mobility-other, Muscle Weakness (generalized), Unsteadiness on feet, General symptoms and signs-other, Difficulty walking-musculoskeletal TREATMENT INTERVENTIONS Evaluation, Therapeutic Activity (65710) $ Evaluation-Moderate (28975) Billed Units: 1 unit Therapeutic Activity (14673) Treatment Minutes: 9 $ Therapeutic Activity (95431) Billed Units: 1 unit Educated patient on role of Acute care PT, encouraging mobility with staff assistance during admission and assisting with safe discharge plan based on current mobility. Encouraged patient to sit up in chair for all meals to limit time in bed and prevent deconditioning. Cues/assist with transfers and ambulation as listed in grid below. Patient very confused, re-oriented multiple times throughout session. Educated on posterior hip precautions: no bending >90 deg, no twisting and no crossing legs. 2 blankets rolled and positioned between LE to help prevent patient from crossing legs while sitting up in chair. Exercise Ankle Pumps (number of reps): 10 Heel Slides (number of reps): 10 LLE LAQ (number of reps): 6 LLE Hip Abduction (number of reps): 10 LLE Exercise: hip adduction squeezes x10 Patient with poor ability to follow cues for quad sets and glut sets despite demonstration and verbal cuing. Timed Code Treatment (minutes): 9 Skilled Treatment Time (minutes): 24 TRAINING AND EDUCATION PROVIDED Assistive Device Use, Benefits of In-Hospital Mobility, Expected Functional Level, Falls Prevention, Gait Pattern, Reduction of Deviations, Exercise Program, Positioning, Precautions/Restrictions, Role of Physical Therapy, Standing Balance, Transfers, Pre-gait Activities THERAPEUTIC SKILLS USED Cues for Sequencing/Proper Technique for Activity, Cuing Tactile, Cuing Verbal, Movement Facilitation, Muscle Activation Facilitation, Physical Assist, Postural Alignment Correction FUNCTIONAL STATUS Bed Mobility Transfers Sit To Stand: Maximal Assistance, Additional Information cues for hand placement, L foot forward, power through LE, poor execution of sequencing, increased retropulsion with increased time and assist to achieve upright posture Stand To Sit: Maximal Assistance, Additional Information cues for hand placement, L foot forward, poor eccentric control with max assist to prevent plopping Bed to Chair Gait Maximal Assistance, Additional Information cues for upright posture, step sequencing, walker proximity, patient with poor ability to advance steps due to pain, poor balance and gross weakness, max assist for balance Gait Device: Wheeled Walker General Deviations/Observations: Antalgic gait, Flexed trunk posture, Shuffling Gait, Step length decreased Gait Distance (feet): 4' forward/backward Stairs ROM ROM Limitation Comments: L hip within limitations of precautions STRENGTH Right Lower Extremity Strength Comments: WFL Left Lower Extremity Strength Comments: +LAQ BALANCE Static Standing Balance: Poor Dynamic Standing Balance: Poor ACTIVITY TOLERANCE Standing Activity: static standing, weight (more content not included)... Normal [facility] THERAPY NT HNO ID: [id number] Author: PONCHO TREVIZO PT Service: Physical Therapy Author Type: Physical Therapist Type: Therapy (PT/OT/Speech/Resp) Filed: 10/29/2024 08:06 Note Text: PHYSICAL THERAPY MISSED VISIT SERVICE DATE: 10/29/2024 SERVICE TIME: 804 ROOM: [place] [address] Patient not seen due to Clinical Appropriateness (per neurosurgery, maintain bedrest, will await updated mobility orders). SIGNATURE: Poncho Trevizo PT PATIENT NAME: Anastacio Patel DATE: October 29, 2024 TIME: 8:06 AM Normal [facility] ALLIED HEALTHon 10-28-2024 ALLIED HEALTH HNO ID: [id number] Author: FREDA LEONE RT(R) Service: Radiology Author Type: Technologist Type: Allied Health Filed: 10/28/2024 23:44 Note Text: Radiology Service Progress Note DATE OF SERVICE: October 28, 2024 TIME: 11:24 PM PATIENT IDENTITY VERIFICATION COMPLETED USING TWO (2) STANDARD IDENTIFIERS: Name and Date of confirmed by patient verbally and Name and Date of confirmed by identification band. FALL SCREENING: Has the patient had 2 falls in the last year or 1 fall with injury or currently using an Ambulatory Assistive Device (Walker, Cane, Wheelchair, Crutches, etc.)? Inpatient: Screened on floor PATIENT GENDER DATA: Male PATIENT RELEVANT IMPLANT DATA REVIEWED: Not Applicable PATIENT PRESENTS WITH AN IMPLANTABLE OR ATTACHED ADJUNCT PHYSICAL EDUCATION INSTRUCTOR: No ALLERGIES: Reviewed and unchanged CONTRAST ALLERGY: NO. EXAM: CT -CONTRAST INDUCED NEPHROPATHY RISK FACTORS: Patient age > 60 years CREATININE: Creatinine Date Value Ref Range Status 10/28/2024 1.23 (H) 0.73 - 1.22 mg/dL Final 12/25/2023 1.25 (H) 0.73 - 1.22 mg/dL Final 06/18/2023 0.90 0.73 - 1.22 mg/dL Final Estimated Glomerular Filtration Rate Date Value Ref Range Status 10/28/2024 58 (L) >=60 mL/min/1.73m? Final Comment: Estimated Glomerular Filtration Rate (eGFR) is calculated using the 2020 CKD-EPI creatinine equation. This equation utilizes serum creatinine, sex, and age as parameters. The creatinine assay has traceable calibration to isotope dilution-mass spectrometry. Refer to KDIGO guidelines for clinical interpretation. In patients with unstable renal function, e.g. those with acute kidney injury, the eGFR may not accurately reflect actual GFR. eGFR- Date Value Ref Range Status 07/24/2020 >60 Final P.O.C.T. RESULTS: N/A October 28, 2024 TREATMENT: N/A PERIPHERAL IV DATA: Inpatient - refer to LDA documentation RADIOLOGY DEPARTMENT: CT; Exam(s) Completed: Abdomen/Pelvis SIGNATURE: RT Marcelo(R) PATIENT NAME: Anastacio Patel DATE: October 28, 2024 TIME: 11:24 PM Normal [facility] ANES POSTPROC EVALon 024 ANES POSTPROC EVAL HNO ID: [id number] Author: DEIDRA SHERWOOD MD Service: Anesthesiology Author Type: Physician Type: Anesthesia Postprocedure Evaluation Filed: 10/28/2024 19:00 Note Text: POST ANESTHESIA EVALUATION NOTE : 1940 Procedure Summary Date: 10/28/24 Room / Location: DE OR / [place] OR Anesthesia Start: 1607 Anesthesia Stop: 173 Procedure: OPEN TREATMENT OF FEMORAL FRACTURE PROXIMAL END NECK INTERNAL FIXATION OR PROSTHETIC REPLACEMENT (Left: Hip) Diagnosis: Fracture of femoral neck (HCC) (Fracture of femoral neck (HCC) [S72.009A]) Surgeons: Matt Michael MD Responsible Provider: Deidra Sherwood MD Anesthesia Type: general ASA Status: 3 Anesthesia Type: general Airway Type: ETT Last Vitals Vitals Value Taken Time BP 146/73 10/28/24 1815 Temp 36.7 ?C (98.1 ?F) 10/28/24 1804 HR SpO2 59 10/28/24 1822 Resp 18 10/28/24 1830 SpO2 97 % 10/28/24 1822 Vitals shown include unfiled device data. Post Anesthesia Patient Status Anticipated Disposition: inpatient floor planned admission. Neurological Status: sleepy but arousable. Pulmonary Status: breathing comfortably on supplemental oxygen Airway Control: returned to baseline unsupported. Cardiovascular Status: stable. Pain Management: clinically adequate Postoperative Hydration: acceptable. Intraoperative Events: no significant anesthesia events Post Operative Nausea/Vomiting Status: no significant post operative nausea or vomiting Recommendation: further care per PACU/ICU/floor team. Anesthesia Observations No Documentation SIGNATURE: Deidra Sherwood MD PATIENT NAME: Anastacio Patel DATE: October 28, 2024 TIME: 6:58 PM CSN: [id number] Normal [facility] ANES PRE-OPon 10-28-2024 ANES PRE-OP HNO ID: [id number] Author: YUSUF LAND DO Service: Anesthesiology Author Type: Physician Type: Anesthesia Preprocedure Evaluation Filed: 10/28/2024 15:20 Note Text: ANESTHESIOLOGY DAY OF SURGERY NOTE : 1940 Procedure Information Date/Time: 10/28/241524 Procedure: HEMIARTHROPLASTY REPLACE JOINT PARTIAL HIP (Left: Hip) Location: DE OR / [place] OR Surgeons: Matt Michael MD Estimated body mass index is 17.13 kg/m? as calculated from the following: Height as of this encounter: 172.7 cm (5' 8"). Weight as of this encounter: 51.1 kg (112 lb 10.5 oz). Most recent hematocrit and potassium results: Hematocrit 33.3 10/28/2024 Potassium 5.0 10/28/2024 Relevant Problems CARDIO (+) Benign hypertension NEURO-PSYCH (+) History of recurrent TIAs (+) S/p left hip fracture Other (+) Frailty syndrome in geriatric patient I - PHYSICAL EVALUATION AIRWAY Patient intubated: No. Tracheostomy tube not present Mallampati: II. TM distance: >3 FB. Neck ROM: limited extension. Mouth opening: adequate. Short neck: no. Thick neck: no DENTAL Dental findings: edentulous. Dentures, upper: complete. Dentures, lower: complete. Additional exam findings: yes. CARDIOVASCULAR Normal cardiovascular observations. PULMONARY Normal pulmonary observations. II - ANESTHESIA PLAN ASA Score: 3 Anesthetic Plan: general Airway type: ETT NPO Status: adequate Beta Joanne Monitoring Plan Monitoring plan: standard ASA. Post Procedure Analgesic Plan Postoperative analgesic plan: parenteral or oral opioids and multimodal analgesia. Informed Consent Anesthetic risks, benefits, alternatives, personnel and consent discussed: yes. Patient / Responsible Republican agrees to proceed: yes Patient / Surrogate agrees to blood products: Yes Significant changes in the patient condition since the History and Physical, not otherwise documented in primary service progress note: no. Vitals Value Taken Time BP 141/76 10/28/24 1457 Pulse 65 10/28/24 1452 Resp 18 10/28/24 1452 Temp 36.6 ?C (97.9 ?F) 10/28/24 1452 SpO2 97 % 10/28/24 1455 Vitals shown include unfiled device data. Facility-Administered Medications as of 10/28/2024 Medication Dose Route Frequency [Transfer Hold] NaCl 0.9% iv flush bag 20 mL INTRAVENOUS PRN [Transfer Hold] docusate sodium 100 mg cap(s) (COLACE) 100 mg ORAL DAILY [Transfer Hold] senna-docusate 8.6-50 mg 1 tablet (SENNA-S) 1 tablet ORAL BID [Transfer Hold] polyethylene glycol 3350 17 g packet 17 g ORAL DAILY [Transfer Hold] donepezil 10 mg tab(s) (ARICEPT) 10 mg ORAL AT BEDTIME [Transfer Hold] gabapentin 300 mg cap(s) (NEURONTIN) 300 mg ORAL BID [Transfer Hold] finasteride 1 mg tab(s) (PROPECIA) 1 mg ORAL DAILY [Transfer Hold] Ipratropium [place] 2 Pierce nasal spray (ATROVENT) 2 Pierce NASAL q 12 H [Transfer Hold] lactated ringers iv infusion 100 mL/hr INTRAVENOUS CONTINUOUS [Transfer Hold] ondansetron 4 mg tab(s) (ZOFRAN) 4 mg ORAL q 6 H PRN Or [Transfer Hold] ondansetron (PF) 4 mg injection (ZOFRAN) 4 mg INTRAVENOUS q 6 H PRN [Transfer Hold] oxyCODONE IR 2.5-5 mg tab(s) (ROXICODONE) 2.5-5 mg ORAL q 4 H PRN [Transfer Hold] ipratropium-albuterol 3 mL nebulizer solution (DUONEB) 3 mL INHALATION q 6 H PRN [Transfer Hold] acetaminophen 1,000 mg tab(s) (TYLENOL) 1,000 mg ORAL q 8 H [Transfer Hold] melatonin 3 mg tab(s) 3 mg ORAL DAILY (8 PM) [Transfer Hold] tiZANidine 4 mg tab(s) (ZANAFLEX) 4 mg ORAL TID PRN [Transfer Hold] HYDROmorphone 0.2 mg injection (DILAUDID) 0.2 mg INTRAVENOUS q 3 H PRN Outpatient Medications as of 10/28/2024 Medication Sig docusate sodium (COLACE) 100 mg capsule Take 1 capsule by mouth two times a day as needed for constipation. traMADol (ULTRAM) 50 mg tablet Take 1 tablet by mouth every 8 hours as needed for pain for up to 60 days. finasteride (PROPECIA) 1 mg tablet Take 1 tablet by mouth once daily. donepezil (ARICEPT) 10 mg tablet Take 1 tablet by mouth daily at bedtime. Per Neuro: Dr. Gentile. Ipratropium [place] (ATROVENT) 21 mcg (0.03 %) nasal spray Use 2 Sprays in the nose every 12 hours. gabapentin (NEURONTIN) 300 mg capsule Take 1 capsule by mouth three times daily for 180 days. (Patient taking differently: Take 300 mg by mouth two times a day.) losartan (COZAAR) 100 mg tablet Take 100 mg by mouth once daily. Take one tablet daily baclofen 10 mg tablet Take 1 tablet by mouth three times daily as needed (muscle spasms). acetaminophen (TYLENOL EXTRA STRENGTH) 500 mg tablet Take 2 tablets by mouth every 8 hours as needed for pain. (Patient taking differently: Take 1,000 mg by mouth every 8 hours as needed for pain. Using Tylenol Arthritis 650mg PRN) loperamide HCl (IMODIUM) 2 mg tab Take 1 tablet by mouth as needed. For loose stools at [place] hydrocortisone 2.5 % cream Apply 1 application to affected area twice daily. APPLY TO AFFECTED AREAS meclizine (ANTIVERT) 25 mg tab Ta (more content not included)... Normal [facility] BRIEF OP NOTon 10-28-2024 BRIEF OP NOT HNO ID: [id number] Author: WILLIAM LARSON MD Service: Orthopaedic Surgery Author Type: Resident Type: Brief Op Note Filed: 10/28/2024 17:51 Note Text: BRIEF OPERATIVE / PROCEDURE NOTE LOG ID: [id number] Surgery/Procedure Date: 10/28/2024 Incision/Procedure Start Time: 4:33 PM Incision Close/Procedure End Time: 5:20 PM Surgeon(s)/Proceduralist(s ) and Crown Blocker(s): Surgeons and Role: * Matt Michael MD - Primary * William Larson MD - Resident - Assisting No Additional Staff Procedure(s): Procedure(s) (LRB): OPEN TREATMENT OF FEMORAL FRACTURE PROXIMAL END NECK INTERNAL FIXATION OR PROSTHETIC REPLACEMENT (Left) Anesthesia: General Specimens: Femoral head Complications: None Implant: Implant Name Type Inv. Item Serial No. Mgmt Analyst Lot No. LRB No. Used Action HEAD UNITRAX 49MM UNIPOLAR MODULAR EXETER V40 STEM HIP FEMORAL - [id number] Joint - Hip HEAD UNITRAX 49MM UNIPOLAR MODULAR EXETER V40 STEM HIP FEMORAL [facility] [employer] [id number] Left 1 Implanted STEM FEMORAL 109MM SIZE 7 HIGH OFFSET INSIGNIA COLLARED - [id number] Joint - Hip STEM FEMORAL 109MM SIZE 7 HIGH OFFSET INSIGNIA COLLARED MAULIK [id number] Left 1 Implanted SLEEVE UNITRAX V40 EXETER +0MM TAPER CENTERING UNIPOLAR HIP - [id number] Joint - Hip SLEEVE UNITRAX V40 EXETER +0MM TAPER CENTERING UNIPOLAR HIP [facility] [employer] [id number] Left 1 Implanted Pre-Op/Pre-Procedure Diagnosis: Fracture of femoral neck (HCC) [S72.009A] Post-Op/Post-Procedure Diagnosis: Fracture of femoral neck (HCC) [S72.009A] Weight Bearing Status: Full Weight Bearing Post-Op Plan: -Management per ortho -Pain control -WBAT on the operative extremity with posterior hip precautions -PT/OT -Follow-up AP pelvis -DVTppx: Lovenox 40 mg daily x 21 days -Diet: regualr -Dressings: Mepilex dressing x 10 days -Ancef 2g x 2 doses -Dispo: pending SIGNATURE: William Larson MD PATIENT NAME: Anastacio Patel DATE: October 28, 2024 TIME: 5:49 PM Normal [facility] Basic metabolic 2000 panelon 10-28-2024 Anion gap [Moles/Vol] 12 mmol/L Normal 8-15 [facility] Comment on above: Order Comment: Speci men Type: BLOOD SPECIMENOrdering Facility: [facility] Address: [address] [place] [address] Performed By: #### 3 040-3, 03081-0 ####[facility] LABORATORYCLIA [id number] [place] [address] [place] Calcium [Mass/Vol] 9.3 mg/dL Normal 8.5-10.2 [facility] Comment on above: Order Comment: Speci men Type: BLOOD SPECIMENOrdering Facility: [facility] Address: [address] [place] [address] Performed By: #### 3 040-3, 26797-7 ####[facility] LABORATORYCLIA [id number] [place] [address] [place] Chloride [Moles/Vol] 106 mmol/L Normal 98-107 [facility] Comment on above: Order Comment: Speci men Type: BLOOD SPECIMENOrdering Facility: [facility] Address: [address] [place] [address] Performed By: #### 3 040-3, ####[facility] LABORATORYCLIA [id number] [place] [address] [place] CO2 [Moles/Vol] 26 mmol/L Normal 22-30 [facility] Comment on above: Order Comment: Speci men Type: BLOOD SPECIMENOrdering Facility: [facility] Address: [address] [place] [address] Performed By: #### 3 040-3, 25964-7 ####[facility] LABORATORYCLIA [id number] [address] [place] Creatinine [Mass/Vol] 1.23 mg/dL High 0.73-1.22 [facility] Comment on above: Order Comment: Speci men Type: BLOOD SPECIMENOrdering Facility: [facility] Address: [address] [place] [address] Performed By: #### 3 040-3, 98908-3 ####[facility] LABORATORYCLIA [id number] [address] [place] Creatinine and Glomerular filtration rate.predicted panel (S/P/Bld) 58 mL/min/1.73m??? Low >=60 [facility] Comment on above: Order Comment: Speci men Type: BLOOD SPECIMENOrdering Facility: [facility] Address: [address] [place] [address] Result Comment: Lilly mated Glomerular Filtration Rate (eGFR) is calculated using the 2020 CKD-EPI creatinine equation. This equation utilizes serum creatinine, sex, and age as parameters. The creatinine assay has traceable calibration to isotope dilution-mass spectrometry. Refer to KDIGO guidelines for clinical interpretation. In patients with unstable renal function, e.g. those with acute kidney injury, the eGFR may not accurately reflect actual GFR. Performed By: #### 3 040-3, 67277-4 ####[facility] LABORATORYCLIA [id number] [place] [address] [place] Glucose [Mass/Vol] 91 mg/dL Normal 74-99 [facility] Comment on above: Order Comment: Shakir melchor Type: BLOOD SPECIMENOrdering Facility: [facility] Address: [address] [place] [address] Result Comment: The [place] Diabetes Association (ADA) provides guidance for cutoff values for fasting glucose and random glucose. The ADA defines fasting as no caloric intake for at least 8 hours. Fasting plasma glucose results between 100 to 125 mg/dL indicate increased risk for diabetes (prediabetes). Fasting plasma glucose results greater than or equal to 126 mg/dL meet the criteria for diagnosis of diabetes. In the absence of unequivocal hyperglycemia, results should be confirmed by repeat testing. In a patient with classic symptoms of hyperglycemia or hyperglycemic crisis, random plasma glucose results greater than or equal to 200 mg/dL meet the criteria for diagnosis of diabetes. Reference: Standards of Medical Care in Diabetes 2016, [place] Diabetes Association. Diabetes Care. 2016.39(Suppl 1). Performed By: #### 3 040-3, 73516-2 ####[facility] LABORATORYCLIA [id number] [place] [id number] [place] Potassium [Moles/Vol] 5.0 mmol/L Normal 3.7-5.1 [facility] Comment on above: Order Comment: Shakir melchor Type: BLOOD SPECIMENOrdering Facility: [facility] Address: [address] [place] [address] Performed By: #### 3 040-3, 59421-4 ####[facility] LABORATORYCLIA [id number] [place] [address] [place] Sodium [Moles/Vol] 144 mmol/L Normal 136-144 [facility] Comment on above: Order Comment: Speci men Type: BLOOD SPECIMENOrdering Facility: [facility] Address: [address] [place] [address] Performed By: #### 3 040-3, 34773-0 ####[facility] LABORATORYCLIA [id number] [place] [address] [place] Urea nitrogen [Mass/Vol] 34 mg/dL High 9-24 [facility] Comment on above: Order Comment: Speci men Type: BLOOD SPECIMENOrdering Facility: [facility] Address: [address] [place] [address] Performed By: #### 3 040-3, 11110-9 ####[facility] LABORATORYCLIA [id number] [address] CBC panel Auto (Bld)on 10-28 Erythrocyte distribution width (RBC) [Ratio] 14.6 % Normal 11.5-15.0 [facility] Comment on above: Order Comment: Speci men Type: BLOOD SPECIMENOrdering Facility: [facility] Address: [address] [place] [address] Performed By: #### 5 8410-2 ####[facility] LABORATORYCLIA [id number] [address] [place] Hematocrit (Bld) [Volume fraction] 33.3 % Low 39.0-51.0 [facility] Comment on above: Order Comment: Speci men Type: BLOOD SPECIMENOrdering Facility: [facility] Address: [address] [place] [address] Performed By: #### 5 8410-2 ####[facility] LABORATORYCLIA [id number] [address] [place] Hemoglobin (Bld) [Mass/Vol] 10.9 g/dL Low 13.0-17.0 [facility] Comment on above: Order Comment: Speci men Type: BLOOD SPECIMENOrdering Facility: [facility] Address: [address] [place] [address] Performed By: #### 5 8410-2 ####[facility] LABORATORYCLIA [id number] [address] MCH (RBC) [Entitic mass] 33.3 pg Normal 26.0-34.0 [facility] Comment on above: Order Comment: Speci men Type: BLOOD SPECIMENOrdering Facility: [facility] Address: [address] [place] [address] Performed By: #### 5 8410-2 ####[facility] LABORATORYCLIA [id number] [address] MCHC (RBC) [Mass/Vol] 32.7 g/dL Normal 30.5-36.0 [facility] Comment on above: Order Comment: Speci men Type: BLOOD SPECIMENOrdering Facility: [facility] Address: [address] [place] [address] Performed By: #### 5 8410-2 ####[facility] LABORATORYCLIA [id number] [address] MCV (RBC) [Entitic vol] 101.8 fL High 80.0-100.0 [facility] Comment on above: Order Comment: Speci men Type: BLOOD SPECIMENOrdering Facility: [facility] Address: [address] [place] [address] Performed By: #### 5 8410-2 ####[facility] LABORATORYCLIA [id number] [address] Nucleated RBC (Bld) [#/Vol] 10*3/uL Normal <0.01 [facility] Comment on above: Order Comment: Speci men Type: BLOOD SPECIMENOrdering Facility: [facility] Address: [address] [place] [address] Performed By: #### 5 8410-2 ####[facility] LABORATORYCLIA [id number] [address] [place] Platelet mean volume (Bld) [Entitic vol] 12.2 fL Normal 9.0-12.7 [facility] Comment on above: Order Comment: Speci men Type: BLOOD SPECIMENOrdering Facility: [facility] Address: [address] [place] [address] Performed By: #### 5 8410-2 ####[facility] LABORATORYCLIA [id number] [address] [facility] Platelets (Bld) [#/Vol] 134 10*3/uL Low 150-400 [facility] Comment on above: Order Comment: Speci men Type: BLOOD SPECIMENOrdering Facility: [facility] Address: [address] [place] [address] Performed By: #### 5 8410-2 ####[facility] LABORATORYCLIA [id number] [address] [facility] RBC (Bld) [#/Vol] 3.27 10*6/uL Low 4.20-6.00 [facility] Comment on above: Order Comment: Speci men Type: BLOOD SPECIMENOrdering Facility: [facility] Address: [address] [place] [address] Performed By: #### 5 8410-2 ####[facility] LABORATORYCLIA [id number] [address] WBC (Bld) [#/Vol] 14.21 10*3/uL High 3.70-11.00 [facility] Comment on above: Order Comment: Speci men Type: BLOOD SPECIMENOrdering Facility: [facility] Address: [address] [place] [address] Performed By: #### 5 8410-2 ####[facility] LABORATORYCLIA [id number] [address] CONFIRM BLOOD TYPEon 024 ABO A Normal [facility] Comment on above: Order Comment: Speci men Type: BLOOD SPECIMENOrdering Facility: [facility] Address: [address] [place] [address] Performed By: #### C ONABO ####[facility] BLOOD BANKCLIA [id number] [address] [place] Rh Nom (Bld) Positive Normal [facility] Comment on above: Order Comment: Speci men Type: BLOOD SPECIMENOrdering Facility: [facility] Address: [address], [place] [address] Performed By: #### C ONABO ####[facility] BLOOD BANKCLIA [id number] [address] CONSULTon 10-28-2024 CONSULT HNO ID: [id number] Author: ISAMAR PAGAN APRN.[employer]PER[employer] Service: Pain Management Author Type: Nurse Specialist Type: Consults Filed: 10/28/2024 14:32 Note Text: INPATIENT PAIN MANAGEMENT NOTE [facility] Anastacio Patel [id number]-* Pain Management Diagnoses: fall, dementia, T12 compression fracture, L femur fracture, rib fractures, chronic pain on buprenorphine patch Interval HPI: pt states I'm all confused. I'm usually oriented" Pain Assessment: mild-moderate hip pain. Pt has butrans patch on mid neck on back Symptom Meds Last 24 Hrs: Tylenol x1 Baclofen 10mg TID prn Colace daily Philip 300 BID Zofran x0 Miralax daily Senna BID Opioid meds last 24 hours: Morphine 1mg IV q3h prn x0 Oxy 2.5-5mg q4h prn x0 Total MME last 24 hours: 0 Subjective Referring Provider for Consult: Filemon Will be communicated via notes in chart. HPI: 84 yo from [place], transfer from [facility] after fall, unwitnessed. Found to have femur fracture and T12 compression fracture, rib fractures. Family indicates multiple recent falls. PMH OA, dementia, TIAs, lung nodules, heart disease. Pt scheduled for surgery 10/28 for hip. Spine precautions. Home Opioid Regimen: OARRS Check: PDMP website checked and validated. All prescriptions have been APPROPRIATELY filled. No suspicious activity was identified. 10/28/2024 by Isamar Pagan APRN.[employer] Overdose Risk Score from OARRS: 170 Drug Screen Completed: No, Ordered: No Results: na Information obtained from chart review, discussion with patient/family, and discussion with primary team HPI may have been copied from previous pain team consult notes. 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 PAST SURGICAL HISTORY Procedure Laterality Date APPENDECTOMY COLONOSCOPY FLX DX W/COLLJ SPEC WHEN PFRMD 03/24/06 Repeat in COLONOSCOPY FLX DX W/COLLJ SPEC WHEN PFRMD 06/09/16 Colonoscopy ESOPHAGOGASTRODUODENOSCOPY TRANSORAL DIAGNOSTIC 11/02/2017 EGD HEMORRHOIDECTOMY NTRNL AND XTRNL 1 COLUMN/GROUP SPLENECTOMY TOTAL SEPARATE PROCEDURE Splenectomy FAMILY HISTORY Problem Relation Age of Onset Alzheimer's Disease Father Cancer Son Testicular cancer(2004). Multiple Sclerosis Brother 01/2017, age 76. Social History Tobacco Use Smoking status: Former Current packs/day: 0.00 Average packs/day: 0.3 packs/day for 30.0 years (7.5 ttl pk-yrs) Types: Cigarettes Start date: 03/15/1960 Quit date: 03/15/1990 Years since quittin.6 Smokeless tobacco: Never Tobacco comments: Quit smoking in his 50s. Substance Use Topics Alcohol use: Not Currently Drug use: No Review of Systems Musculoskeletal: Positive for joint pain. Neurological: Confusion All other systems reviewed and are negative. Objective PHYSICAL EXAM: Vitals: 10/28/24 0600 10/28/24 0700 10/28/24 0819 10/28/24 1156 BP: 139/76 140/72 160/79 124/63 Pulse: 73 69 62 68 Resp: 13 15 18 18 Temp: 36.4 ?C (97.5 ?F) 36.2 ?C (97.2 ?F) TempSrc: Oral Oral SpO2: 98% 97% Weight: 51.1 kg (112 lb 10.5 oz) Height: 172.7 cm (5' 8") Physical Exam Vitals and nursing note reviewed. Constitutional: Appearance: He is ill-appearing. HENT: Head: Normocephalic and atraumatic. Mouth/Throat: Mouth: Mucous membranes are dry. Cardiovascular: (more content not included)... Normal [facility] CONSULT HNO ID: [id number] Author: MICHEL ROJAS PA Service: Geriatrics Author Type: Physician Crown Blocker Type: Consults Filed: 10/28/2024 12:50 Note Text: GERIATRIC MEDICINE CONSULT NOTE SERVICE DATE: 10/28/2024 SERVICE TIME: 11:15 AM [id number] REASON FOR CONSULT: "84 yo male with history of dementia and recent fall" REQUESTING PROVIDER: Jefry Colbert PA-C HISTORY OF PRESENT ILLNESS: Anastacio Patel is a 84 year old male with a past medical history of HTN, TIA, former smoker, hypothyroidism, dementia, recurrent falls, and debility who was admitted on 10/28 for L hip fracture. Patient had an unwitnessed fall at nursing facility, was taken to [place] ED for evaluation. Imaging revealed displaced fracture of R 6th and th ribs, progression of T12 compression fracture, and angulated fracture at the left femoral neck. Was transferred to [facility] for trauma evaluation, patient was admitted under trauma to [facility]. Orthopedic surgery consulted for L thigh pain, recommended surgical fixation. Neurosurgery consulted for T12 compression fracture, recommended strict bedrest at this time and possible MRI. Patient is scheduled for surgery today (10/28). Determined to be HIGH RISK for delirium with DEAR assessment. Negative BCAM noted. Patient is awake in the hospital bed, son Alcon at bedside, opened the blinds. Pleasantly confused and cooperative. Able to state name, age, , place, month, year, why he is at the hospital. Denies hallucinations. Son states patients confusion has been waxing and waning since being at the hospital, needs to frequently remind the patient he cannot get up out of bed. Endorses weakness, fatigue, back pain, and mild LLE pain. Denies chest pain, palpitations, cough, shortness of breath, abdominal pain, nausea, dizziness, headaches, vision changes. Sleeping on an off this afternoon, renetta, mary BM, NPO for surgery. Information was obtained from patient and son. Patient is AANDO X2-3 at baseline, history of dementia. Son states patient is forgetful but is fairly with-it. Is on donepezil. Denies significant vision or hearing impairment, does not wear glasses or hearing aids. Lives at [facility] in [place]. Independent in B-ADLs. Dependent in I-ADLs, does not like the food very much at [place] but family brings in a lot of food and will also take the patient out to eat. Endorses many other falls but describes them as slipping. Uses a cane with ambulation, also has a 4 prong cane but states it is too bulk for him, has a walker but does not use. No other ED visits or hospital admissions within the last 6 months. Medications reviewed, noted to follow-up with pain management, would recommend pain management consult, notified primary team. Denies dysphagia, odynophagia, weight loss, decreased appetite, feelings of depression or anxiety, or difficulty with sleep. Former smoker. Denies alcohol or illicit drug use. Subjective DNR/CODE STATUS: DNR-CCA Advance Directives: Living Will? Not in chart HCPOA? Not in chart Decision Maker? Majority of 3 children PCP: Dr. Piero Rubin, was last seen 07/29/2024. 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 Past Surgical History: PAST SURGICAL HISTORY Procedure Laterality Date APPENDECTOMY COLONOSCOPY FLX DX W/COLLJ SPEC WHEN PFRMD 03/24/06 Repeat in COLONOSCOPY FLX DX W/COLLJ SPEC WHEN PFRMD 06/09/16 Colonoscopy ESOPHAGOGASTRODUODENOSCOPY TRANSORAL DIAGNOSTIC 11/02/2017 EGD HEMORRHOIDECTOMY NTRNL AND XTRNL 1 COLUMN/GROUP SPLENECTOMY TOTAL SEPARATE PROCEDURE Splenectomy Family History: FAMILY HISTORY Problem Relation Age of Onset Alzheimer's Disease Father Cancer Son Testicular cancer(2004). Multiple Sclerosis Brother 01/2017, age 76. Social History: Social History Tobacco Use Smoking status: Former Current packs/day: 0.00 Average packs/day: 0.3 packs/day for 30.0 years (7.5 ttl pk-yrs) Types: Cigarettes Start date: 03/15/1960 Quit date: 03/15/1990 Years since quittin.6 Smokeless tobacco: Never Tobacco comments: Quit smoking in his 50s. Substance Use Topics Alcohol use: Not (more content not included)... Normal [facility] CONSULT HNO ID: [id number] Author: MICHELLE VEGA MD, PhD Service: Neurosurgery Author Type: Physician Type: Consults Filed: 10/29/2024 16:22 Note Text: CONSULT: NEUROSURGERY SERVICE Patient Name: Anastacio Patel Date of : 1940 SERVICE DATE: 10/28/2024 SERVICE TIME: 4:56 AM REASON FOR CONSULT: T12 compression fracture PRIMARY CARE PHYSICIAN: Piero Rubin MD CHIEF COMPLAINT: Fall HISTORY OF PRESENT ILLNESS : Mr. Patel is a 84 year old male with PMHx of dementia transferred from [facility] ED following fall at facility. Patient has had multiple recent falls sustaining rib fractures and thoracic fracture. Now with left hip fracture. Presently, patient reports 6/10 back pain to the lower thoracic spine without radiation. He admits to being previously treated in brace. He reports that back pain is similar to prior to fall, denies worsening pain. He reports pain limited LLE but otherwise denies focal weakness. He denies paresthesias. 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 PAST SURGICAL HISTORY Procedure Laterality Date APPENDECTOMY COLONOSCOPY FLX DX W/COLLJ SPEC WHEN PFRMD 03/24/06 Repeat in COLONOSCOPY FLX DX W/COLLJ SPEC WHEN PFRMD 06/09/16 Colonoscopy ESOPHAGOGASTRODUODENOSCOPY TRANSORAL DIAGNOSTIC 11/02/2017 EGD HEMORRHOIDECTOMY NTRNL AND XTRNL 1 COLUMN/GROUP SPLENECTOMY TOTAL SEPARATE PROCEDURE Splenectomy FAMILY HISTORY Problem Relation Age of Onset Alzheimer's Disease Father Cancer Son Testicular cancer(2004). Multiple Sclerosis Brother 01/2017, age 76. ALLERGIES No Known Allergies Current Facility-Administered Medications Medication Dose Route Frequency Provider Last Rate Last Admin NaCl 0.9% iv flush bag 20 mL INTRAVENOUS PRN Benigno Reyes, Current Outpatient Medications Medication Sig Dispense Refill docusate sodium (COLACE) 100 mg capsule Take 1 capsule by mouth two times a day as needed for constipation. 60 capsule 11 traMADol (ULTRAM) 50 mg tablet Take 1 tablet by mouth every 8 hours as needed for pain for up to 60 days. 90 tablet 1 finasteride (PROPECIA) 1 mg tablet Take 1 tablet by mouth once daily. 90 tablet 3 donepezil (ARICEPT) 10 mg tablet Take 1 tablet by mouth daily at bedtime. Per Neuro: Dr. Gentile. Ipratropium [place] (ATROVENT) 21 mcg (0.03 %) nasal spray Use 2 Sprays in the nose every 12 hours. 30 mL 5 gabapentin (NEURONTIN) 300 mg capsule Take 1 capsule by mouth three times daily for 180 days. 90 capsule 5 losartan (COZAAR) 100 mg tablet Take 100 mg by mouth once daily. Take one tablet daily baclofen 10 mg tablet Take 1 tablet by mouth three times daily as needed (muscle spasms). acetaminophen (TYLENOL EXTRA STRENGTH) 500 mg tablet Take 2 tablets by mouth every 8 hours as needed for pain. (Patient taking differently: Take 1,000 mg by mouth every 8 hours as needed for pain. Using Tylenol Arthritis 650mg PRN) loperamide HCl (IMODIUM) 2 mg tab Take 1 tablet by mouth as needed. For loose stools at [place] hydrocortisone 2.5 % cream Apply 1 application to affected area twice daily. APPLY TO AFFECTED AREAS 30 g 10 meclizine (ANTIVERT) 25 mg tab Take 1 tablet by mouth every 6 hours as needed (dizziness). 30 tablet 1 DAILY MULTIVITAMIN TAB Take one(1) tablet daily. 0 COMPLETE REVIEW OF SYSTEMS PAIN ASSESSMENT: see HPI GENERAL: No weight loss, malaise or fevers HEENT: Negative for dizziness, blurred vision, double vision NECK: Negative for neck pain or stiffness RESPIRATORY: Negative for cough, wheezing or shortness of breath CARDIOVASCULAR: Negative for chest pain, leg swelling or palpitations GI: Negative for nausea or emesis, negative constipation or diarrhea : No history of dysuria, frequency or incontinence MUSCULOSKELETAL: Negative for joint pain or swelling. Positive for back pain and left hip pain. SKIN: Negative for lesions, rash, and itching NEURO: see HPI MEDS: Current Facility-Administered Medications Medication Dose Route Frequency NaCl 0.9% iv flush bag 20 mL INTRAVENOUS PRN OBJECTIVE: BP 152/71 Pulse 62 Temp (Src) 97.4 (Oral) Resp 12 Ht 5' 8" (1.73m) Wt 115 (more content not included)... Normal [facility] CONSULT HNO ID: [id number] Author: MATT MICHAEL MD Service: Orthopaedic Surgery Author Type: Physician Type: Consults Filed: 10/28/2024 15:49 Note Text: Orthopaedic Trauma Surgery Attending Addendum Reviewed resident Consultation. The patient was personally seen and examined on 10/28/2024. Agree with resident history, physical examination, image interpretation, assessment and plan unless otherwise noted. 84 year old male with past medical history significant for hypertension, dementia, recurrent transient ischemic attacks, internal hemorrhoids, anemia, lung nodules, splenic rupture and valvular heart disease presented to [facility] on 10/28/2024 for evaluation after a fall. The patient was found to have a displaced left femoral neck fracture and a T12 compression fracture. The patient was admitted to trauma surgery with orthopaedic trauma surgery and neurosurgery on consultation. The risks, limitations, benefits and alternatives to all treatment options including non-operative and operative management of the patient's left femoral neck fracture were discussed with the patient and the patient's POA (Alcon Patel). The risks of the operation include, but are not limited to, the risks associated with general anesthesia, infection, bleeding, damage to nearby structures (such as arteries, veins, nerves, muscle, tendons, ligaments), chronic pain, acetabular pathology, prosthetic instability/dislocation, periprosthetic fracture, deep venous thromboses, pulmonary embolism, hardware failure and the need for future operations. The patient's POA (Alcon Patel) elected for the patient to proceed with insertion of a left hip hemiarthroplasty for the left femoral neck fracture. All questions and concerns were answered and addressed. The informed consent was reviewed. The patient was discussed with neurosurgery and cleared for lateral positioning for the operation. Matt Michael MD Orthopaedic Trauma Surgery 10/28/2024 3:41 PM ORTHOPAEDIC SURGERY CONSULTATION Pt: ANASTACIO PATEL Date of Admission: 10/28/2024 Chief Complaint: Left ThighPain HPI:84 year old male presented to [facility] ED on 10/28/2024 for evaluation of left thigh pain. The patient endorses a ground level fall with subsequent immediate and severe left thigh pain and the inability to ambulate. The patient denies head trauma and loss of consciousness. The patient denies numbness and tingling of the left lower extremity. The patient denies prior pain or injury to the left thigh. The patient lives at an assisted living and utilizes a cane for ambulation assistance at baseline. The patient denies anticoagulation utilization. The patient denies fevers, chills, nausea, vomiting and other constitutional symptoms at this time. The patient has no additional orthopaedic complaints other than back and neck pain at this time. Patient has additional vertebral compression fractures and rib fractures. 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 PAST SURGICAL HISTORY Procedure Laterality Date APPENDECTOMY COLONOSCOPY FLX DX W/COLLJ SPEC WHEN PFRMD 03/24/06 Repeat in COLONOSCOPY FLX DX W/COLLJ SPEC WHEN PFRMD 06/09/16 Colonoscopy ESOPHAGOGASTRODUODENOSCOPY TRANSORAL DIAGNOSTIC 11/02/2017 EGD HEMORRHOIDECTOMY NTRNL AND XTRNL 1 COLUMN/GROUP SPLENECTOMY TOTAL SEPARATE PROCEDURE Splenectomy Allergies: Patient has no known allergies. Current Facility-Administered Medications Medication Dose Route Frequency NaCl 0.9% iv flush bag 20 mL INTRAVENOUS PRN Current Outpatient Medications Medication Sig docusate sodium (COLACE) 100 mg capsule Take 1 capsule by mouth two times a day as needed for constipation. traMADol (ULTRAM) 50 mg tablet Take 1 tablet by mouth every 8 hours as needed for pain for up to 60 days. finasteride (PROPECIA) 1 mg tablet Take 1 tablet by mouth once daily. donepezil (ARICEPT) 10 mg tablet Take 1 tablet by mouth daily at bedtime. Per Neuro: Dr. Gentile. Ipratropium [place] (ATROVENT) 21 mcg (0.03 %) nasal spray Use 2 Sprays in the nose every 12 hours. gabapentin (NEURONTIN) 300 mg capsule Take 1 (more content not included)... Normal [facility] CT ABD/PEL W IVCONon 024 CT ABD/PEL W IVCON * * *Final Report* * * DATE OF EXAM: Oct 28 2024 11:59PM [facility] 0530 - CT ABD/PEL W IVCON / PROCEDURE REASON: Abdominal pain, acute, nonlocalized * * * * Physician Interpretation * * * * EXAMINATION: CT ABDOMEN AND PELVIS WITH IV CONTRAST CLINICAL HISTORY: Foreign body TECHNIQUE: CT of the abdomen and pelvis was performed using standard technique, scanning from just above the dome of the diaphragm to the symphysis pubis. MQ: CTAP_3 Contrast: IV: 100 ml of Omnipaque 350 : ml of CT Radiation dose: Integrated Dose-length product (DLP) for this visit = 469 mGy*cm. CT Dose Reduction Employed: Automated exposure control(AEC) and iterative recon COMPARISON: X-ray chemotherapy RESULT: Liver: No mass. Biliary: No bile duct dilation. Spleen: Absent Pancreas: No mass or duct dilation. Adrenals: No mass. Kidneys: Right-sided nephrolithiasis measures 3 mm. Cortical and parapelvic cysts are noted. There is no hydronephrosis. No ureteral stone. GI tract: Radiopaque foreign body identified x-ray corresponds to density located within the ascending colon. IV fecal accumulation Lymph nodes: No abdominal or pelvic lymphadenopathy. Mesentery/Peritoneum: No ascites or mass. Retroperitoneum: No mass. Vasculature: Heavy atherosclerosis Pelvis: No mass, ascites or fluid collection. Ricketts catheter in the bladder Bones/Soft Tissues: Pulses left hip arthroplasty Lower thorax: Localizer images: IMPRESSION: 1. Radiopaque foreign body identified on x-ray corresponds to density located within the ascending colon. This could represent a biopsy clip or endoscopic capsule. 2. Nonobstructing right punctate and 3 mm nephrolithiasis 3. Absent spleen 4. Osteopenia and degenerative change 5. Heavy atherosclerosis Ski Technician: NORMA Transcribe Date/Time: Oct 29 2024 12:06A Dictated by : JABARI DOVE MD This examination was interpreted and the report reviewed and electronically signed by: JABARI DOVE MD on Oct 29 2024 12:37AM EST [id number] Normal [facility] ECG COMPLETEon 10-28-2024 ECG COMPLETE Ventricular Rate : 6 0 BPM Atrial Rate : 60 BPM P-R Interval : 210 ms QRS Duration : 78 ms Q-T Interval : 448 ms QTC Calculation(Bazett) : 448 ms Calculated P Blanco : 29 degrees Calculated R Blanco : -41 degrees Calculated T Blanco : 73 degrees SINUS RHYTHM WITH 1ST DEGREE A-V BLOCK LEFT AXIS DEVIATION ABNORMAL ECG NO PREVIOUS ECGS AVAILABLE Confirmed by MD LEWIS VINAYAK ([id number]) on 10/30/2024 1:59:26 PM NAME : ANASTACIO PATEL PID : [id number] : 1940 Gender : Male Race : ORD : [id number] Procedure Date : Oct 28 2024 18:59:06 Edit Date : Oct 30 2024 13:59:29 Diagnosis: SINUS RHYTHM WITH 1ST DEGREE A-V BLOCK LEFT AXIS DEVIATION ABNORMAL ECG NO PREVIOUS ECGS AVAILABLE Confirmed by MD LEWIS VINAYAK ([id number]) on 10/30/2024 1:59:26 PM Test Reason : Check QT Location : 200 : [id number] Overread By : MD LEWIS VINAYAK Edited By : MD LEWIS VINAYAK Referred By : , Acquired by : MICHEL RAMOS Normal [facility] ED NOTEon 10-28-2024 ED NOTE HNO ID: [id number] Author: CHRISTINE MCKENZIE RN Service: Emergency Medicine Author Type: Registered Nurse Type: ED Notes Filed: 10/28/2024 03:54 Note Text: Ortho at bedside Normal [facility] ED NOTE HNO ID: [id number] Author: CHRISTINE MCKENZIE RN Service: Emergency Medicine Author Type: Registered Nurse Type: ED Notes Filed: 10/28/2024 03:37 Note Text: Pt on manager monitoring, bp cuff, cont pulse ox. Pt denies needs at this time. Provided warm blanket for comfort. Normal [facility] ED PROV NOTEon 10-28-2024 ED PROV NOTE HNO ID: [id number] Author: DEIDRA VALADEZ MD Service: Emergency Medicine Author Type: Resident Type: ED Provider Notes Filed: 10/28/2024 23:18 Note Text: -- Attestation signed by Deidra Valadez MD at 10/28/2024 11:18 PM Attending Note I evaluated the patient and personally participated in the hart components. I agree with the resident's findings and plan as documented and have discussed the case and management of the patient's care with the resident. See my note from the same visit for any corrections or additions to resident's note. Signature: Deidra Valadez MD Date: 10/28/2024 Time: 11:17 PM -- ED Provider Note Patient Name: Anastacio Patel : 1940 SERVICE DATE: 10/28/24 History No chief complaint on file. 84-year-old male with past medical history of hypertension presents to the emergency department for trauma consult as a transfer from outside facility. Patient had a fall last evening which resulted in a left-sided femur fracture, multiple rib fractures and vertebral fractures. Did hit his head but no loss of consciousness. Patient requiring 2 L of nasal cannula but otherwise denies chest pain, shortness of breath, abdominal pain. Complains of headache where he has abrasions but no dizziness, lightheadedness, visual disturbance, nausea or vomiting. Of note, patient is not on blood thinners. 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 PAST SURGICAL HISTORY Procedure Laterality Date APPENDECTOMY COLONOSCOPY FLX DX W/COLLJ SPEC WHEN PFRMD 03/24/06 Repeat in COLONOSCOPY FLX DX W/COLLJ SPEC WHEN PFRMD 06/09/16 Colonoscopy ESOPHAGOGASTRODUODENOSCOPY TRANSORAL DIAGNOSTIC 11/02/2017 EGD HEMORRHOIDECTOMY NTRNL AND XTRNL 1 COLUMN/GROUP SPLENECTOMY TOTAL SEPARATE PROCEDURE Splenectomy FAMILY HISTORY Problem Relation Age of Onset Alzheimer's Disease Father Cancer Son Testicular cancer(2004). Multiple Sclerosis Brother 01/2017, age 76. Social History Tobacco Use Smoking status: Former Current packs/day: 0.00 Average packs/day: 0.3 packs/day for 30.0 years (7.5 ttl pk-yrs) Types: Cigarettes Start date: 03/15/1960 Quit date: 03/15/1990 Years since quittin.6 Smokeless tobacco: Never Tobacco comments: Quit smoking in his 50s. Substance and Sexual Activity Alcohol use: Yes Alcohol/week: 1.0 standard drink of alcohol Types: 1 Cans of beer per week Comment: Occasional. Drug use: No Sexual activity: Never ALLERGIES No Known Allergies Review of Systems Eyes: Negative for visual disturbance. Respiratory: Negative for shortness of breath. Cardiovascular: Negative for chest pain and palpitations. Gastrointestinal: Negative for abdominal pain and vomiting. Musculoskeletal: Left hip pain Neurological: Positive for headaches. Negative for dizziness and light-headedness. Physical Exam Vitals BP Pulse Temp Temp src Resp SpO2 Weight Height -- -- -- -- -- -- -- -- Physical Exam Vitals and nursing note reviewed. Constitutional: Appearance: Normal appearance. HENT: Head: Comments: Small abrasion noted to the occiput Mouth/Throat: Mouth: Mucous membranes are moist. Pharynx: Oropharynx is clear. Eyes: Extraocular Movements: Extraocular movements intact. Conjunctiva/sclera: Conjunctivae normal. Pupils: Pupils are equal, round, and reactive to light. Cardiovascular: Rate and Rhythm: Normal rate and regular rhythm. Pulses: Normal pulses. Heart sounds: Normal heart sounds. Pulmonary: Effort: Pulmonary effort is normal. Breath sounds: Normal breath sounds. Chest: Chest wall: No tenderness. Abdominal: General: Abdomen is flat. Bowel sounds are normal. Palpations: Abdomen is soft. Tenderness: There is no abdominal tenderness. Musculoskeletal: General: No swelling. Comments: Left sided hip tenderness to palpation Skin: General: Skin is warm and dry. Capillary Refill: Capillary refill takes less than 2 seconds. Neurological: Mental Status: He is (more content not included)... Normal [facility] ED PROV NOTE HNO ID: [id number] Author: DEIDRA VALADEZ MD Service: Emergency Medicine Author Type: Physician Type: ED Provider Notes Filed: 10/28/2024 04:06 Note Text: Attending Note Brief HPI: Anastacio Patel is a 84 year old male with a PMH as documented below who presents as a trauma transfer from [facility]. Patient sustained a fall earlier tonight. He had multiple recent falls. He was taken from his care facility to [facility] ED where he was found to have a left hip fracture. Chest x-ray and then chest CT showed multiple rib fractures without pneumothorax although these were believed to be subacute in nature. Given multiple rib fractures and hip fracture he was transferred here for trauma consult and Ortho consultation. CT brain and C-spine did not reveal any acute traumatic injury per ED report. 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 Physical Exam: - Gen: Chronically ill but nontoxic appearing, NAD - CV: RRR without m/r/g - Pulm: No respiratory distress, CTAB - Neuro: Alert, GCS 15 MDM: Patient presenting for hip fracture and rib fractures for trauma consult and Ortho consult. Patient is nontoxic-appearing and has normal vital signs. He does have a new oxygen requirement but is satting 96% on 3 to 4 L nasal cannula in no respiratory distress. Will consult Ortho and trauma. Will consider fascia iliac a block although patient not complaining of any hip pain at the moment. Will admit once consultation to complete See resident note for disposition details I personally saw and examined the patient. I reviewed the resident's note I personally saw the patient and performed a substantive portion of the visit including all aspects of the medical decision making. I agree with the resident's assessment and plan unless otherwise noted. I was present for the significant portion of the procedure(s). DEIDRA VALADEZ 10/28/24 0406 Normal [facility] Emergency Department Summary on 10-28-2024 Emergency Department Summary [facility] Medical Records Department [address] [place] [address] Emergency Department Summary 10/28/24 MR#: [id number] Acct: [id number] Name: ANASTACIO PATEL Rep #: [id number] : 1940 84 From: Min Ortega DO PCP: Dr. Piero Rubin MD Status:DEP ER Location: ED HPI History of Present Illness Chief Complaint: Fall Informant: patient, EMS and SNF Narrative Narrative: Patient is an 84-year-old male from the group home with history of dementia hypertension hypothyroidism BPH and chronic kidney disease. [facility] sent him in for an unwitnessed fall this evening and he was noted to have a abrasion and hematoma to the back of his head as well as a skin tear to his right forearm. He is not on a blood thinner but with concern for underlying trauma from the fall he was sent to the hospital for evaluation. Family reports he has been falling multiple times over the past few weeks but has not been evaluated for those as he did not strike his head. The patient does not remember how he fell but this time does not complain of any pain PFSH PFSH Medical History BPH (benign prostatic hyperplasia) Chronic anemia CKD (chronic kidney disease), stage III Former tobacco use Dementia Hypothyroidism Hypertension Frequent falls Lung nodule seen on imaging study Sacral fracture, closed Home Medications ???Medication ???Instructions ???Recorded ???Last Taken ???Type baclofen 10 mg tablet 5 mg (1/2 x 10 mg) PO TID PRN 05/12/23 Unknown Rx Muscle Spasm 30 days #90 tabs gabapentin 300 mg capsule 300 mg PO TID 30 days #90 caps 05/12/23 Unknown Rx losartan 100 mg tablet 100 mg PO DAILY 30 days #30 tabs 05/12/23 Unknown Rx tramadol 50 mg tablet 50 mg PO Q8H PRN pain 07/15/23 Unknown History acetaminophen 325 mg tablet 650 mg PO Q4H PRN fever 10/01/23 Unknown History (Tylenol) finasteride 1 mg tablet 1 mg PO DAILY 10/01/23 Unknown History melatonin 5 mg capsule 5 mg PO QHS PRN insomnia 10/01/23 Unknown History multivitamin (Multiple Vitamins 1 tab PO DAILY 10/01/23 Unknown History tablet) donepezil 10 mg tablet 10 mg PO QHS #30 tabs 02/01/24 Unknown Rx memantine 28 mg capsule 28 mg PO DAILY 02/01/24 Unknown History sprinkle,extended release 24hr bisacodyl 10 mg rectal suppository 10 mg [place] DAILY PRN constipation 10/28/24 Unknown History buprenorphine 10 mcg/hour weekly 1 patch transdermal QWEEK 10/28/24 Unknown History transdermal patch (Butrans) docusate sodium 100 mg capsule 100 mg PO BID PRN constipation 10/28/24 Unknown History (Colace) duloxetine 60 mg capsule,delayed 60 mg PO DAILY 10/28/24 Unknown History release (Cymbalta) loperamide 2 mg tablet 2 mg PO Q4H PRN loose stool 10/28/24 Unknown History magnesium hydroxide 400 mg/5 mL 30 ml PO DAILY PRN constipation 10/28/24 Unknown History oral suspension (Milk of Magnesia) Allergy/AdvReac Type Severity Reaction Status Date / Time No Known Allergies Allergy Verified 02/01/24 08:36 Family History Other Dementia Surgical History History of appendectomy History of splenectomy Social History (Updated 10/27/24 @ 23:[address] Antoinette Capellan MD) household members: none housing: group home Smoking Status: Former smoker alcohol intake: never substance use type: does not use ROS ROS ED ROS Narrative Please no review of systems may be unreliable as patient has dementia Constitutional Constitutional ED: Denies chills or fever(s) Eyes Eyes: Denies change in vision ENT ENT ED: Denies sore throat Cardiovascular Cardiovascular: Reports other Details: Negative syncope ; Denies chest pain Respiratory/Chest Respiratory/Chest: Denies cough or dyspnea Gastrointestinal Gastrointestinal: Denies abdominal pain, diarrhea, nausea or vomiting Genitourinary Genitourinary ED: Denies dysuria Musculoskeletal Musculoskeletal: Reports neck pain and other Details: Patient does endorse neck pain but states this is chronic in nature ; Denies back pain Integumentary Reports Abrasions Neurologic Neurologic: Denies headache(s) Hematologic/Lymphatic Hematologic/Lymphatic: Denies easy bleeding or easy bruising EXAM Physical Exam Const Vital Signs: 10/27/24 21:32 10/27/24 21:38 10/27/24 21:48 Temperature 96.9 F L Temperature Source Temporal Pulse Rate 62 59 L Respiratory Rate 12 12 Respiratory Effort Normal Respiratory Depth Normal Respiratory Pattern Normal Blood Pressure 140/70 H Blood Pressure Mean 93 Pulse Ox 84 94 100 Oxygen Delivery Method Room Air Nasal Cannula Nasal Cannula Oxygen Flow Rate (L/min) 4 3 10/27/24 23:30 12 (more content not included)... Normal [facility] Ethanol [Mass/Vol] mg/dL Normal <11 [facility] Comment on above: Order Comment: Speci men Type: BLOOD SPECIMENOrdering Facility: [facility] Address: [facility] [place] [address] Performed By: #### 5 643-2 ####[facility] LABORATORYCLIA [id number] [place] [address] [place] [facility] HISTORY PHYSICALon HISTORY PHYSICAL HNO ID: [id number] Author: MAHIN GEORGE MD Service: General Surgery Author Type: Resident Type: H&P Filed: 11/16/2024 16:05 Note Text: -- Attestation signed by Mahin George MD at 11/16/2024 4:05 PM Attending Note I evaluated the patient and personally participated in the hart components on 10/28/2024 I agree with the resident's findings and plan as documented and have discussed the case and management of the patient's care with the resident. Mahin George MD Delayed entry -- TRAUMA SURGERY HANDP [facility] ARRIVAL DATE: 10/28/2024 ARRIVAL TIME: AM CATEGORY: Trauma consult INJURY DATE: 10/27/24 INJURY TIME: PM Subjective 84 year old male with PMHx of HTN and dementia. Patient was a trauma consult for ground-level fall on 10-27-2024. Patient has dementia and is a poor historian, attempted to contact the patient's son but he was not available. From what I could gather from talking to the patient he was getting into bed and he fell out of his bed and hit the ground. Patient says he did hit his head but denies losing consciousness. CT head, neck, chest, chest x-ray, pelvic x-ray, 2 view of the left hip were obtained at [facility]. Scans show Angulated femoral neck fracture, subacute/ chronic rib fx, progression of T12 compression fx. On exam patient's only complaints are tenderness around his T12 area and pain in his left hip. Patient is not GCS at Scene was 15. HPI/CHIEF COMPLAINT: Ground-level fall on 10-27-2024 BRIEF DESCRIPTION OF INJURIES: Angulated femoral neck fracture, subacute/ chronic rib fx, progression of T12 compression fx LAST FLUIDS/MEAL: Unknown CODE STATUS: Patient has DNR CCA paperwork in his folder. Attempted to contact the son for confirmation, son was unavailable. ALLERGIES No Known Allergies (Not in a hospital admission) DATE OF LAST TETANUS: Unknown Immunization History Administered Date(s) Administered COVID-19 original vaccine, age 12+ yr, monovalent (PFIZER-BIONTECH - THOMAS TOP) 03/07/2022 COVID-19 original vaccine, age 12+ yr, monovalent (PFIZER-BIONTECH - PURPLE TOP) 12/11/2020 01/01/2021 08/20/2021 COVID-19 vaccine, age 12+ yr (PFIZER-BIONTECH COMIRNATY) 08/27/2023 COVID-19 vaccine, age 12+ yr, bivalent (PFIZER-BIONTECH) 08/25/2022 diphtheria tetanus (DT) vaccine, pediatric 07/24/2000 06/21/2012 influenza (HD-IIV3) vaccine, age 65+ yr, high dose, trivalent, PF (FLUZONE HIGH-DOSE) 08/25/2017 07/30/2018 07/28/2019 07/24/2020 08/27/2023 influenza (HD-IIV4) vaccine, age 65+ yr, high dose, quadrivalent, PF (FLUZONE HIGH-DOSE) 08/23/2021 08/25/2022 pneumococcal conjugate (PCV13) vaccine, 13 valent (PREVNAR 13) 06/27/2015 pneumococcal polysaccharide (PPV23) vaccine, 23 valent (PNEUMOVAX 23) 02/18/1989 09/21/1990 02/18/1999 10/28/2016 zoster (RZV) vaccine, recombinant (SHINGRIX) 07/26/2020 09/27/2020 zoster (ZVL) vaccine, live (ZOSTAVAX) 07/28/2012 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 PAST SURGICAL HISTORY Procedure Laterality Date APPENDECTOMY COLONOSCOPY FLX DX W/COLLJ SPEC WHEN PFRMD 03/24/06 Repeat in COLONOSCOPY FLX DX W/COLLJ SPEC WHEN PFRMD 06/09/16 Colonoscopy ESOPHAGOGASTRODUODENOSCOPY TRANSORAL DIAGNOSTIC 11/02/2017 EGD HEMORRHOIDECTOMY NTRNL AND XTRNL 1 COLUMN/GROUP SPLENECTOMY TOTAL SEPARATE PROCEDURE Splenectomy Social History Tobacco Use Smoking status: Former Current packs/day: 0.00 Average packs/day: 0.3 packs/day for 30.0 years (7.5 ttl pk-yrs) Types: Cigarettes Start date: 03/15/1960 Quit date: 03/15/1990 Years since quittin.6 Smokeless tobacco: Never Tobacco comments: Quit smoking in his 50s. Substance Use Topics Alcohol use: Yes Alcohol/week: 1.0 standard drink of alcohol Types: 1 Cans of beer per week Comment: Occasional. Drug use: No FAMILY HISTORY Problem Relation Age of Onset Alzheimer's Disease Father Cancer Son Testicular cancer(2004). Multiple Sclerosis Brother 01/2017, age 76. ROS: Is the (more content not included)... Normal [facility] Lipase SerPl-cCncon 10-28-20 24 Lipase [Catalytic activity/Vol] 30 U/L Normal 16- [facility] Comment on above: Order Comment: Speci men Type: BLOOD SPECIMENOrdering Facility: [facility] Address: [address] [place] [address] Performed By: #### 3 040-3, 87700-3 ####[facility] LABORATORYCLIA [id number] [address] OF [place] OPERATIVE NOon 10-28-2024 OPERATIVE NO HNO ID: [id number] Author: MATT MICHAEL MD Service: Orthopaedic Surgery Author Type: Physician Type: Operative Report Filed: 10/29/2024 09:59 Note Text: OPERATIVE/PROCEDURE REPORT LOG ID: [id number] SURGERY/PROCEDURE DATE: 10/28/2024 INCISION/PROCEDURE START TIME: 4:33 PM INCISION CLOSE/PROCEDURE END TIME: 5:20 PM SURGEON(S)/PROCEDURALIST(S ) AND MOBILE WEB APPLICATION DEVELOPER(S): Surgeons and Role: * Matt Michael MD - Primary * William Larson MD - Resident - Assisting No Additional Staff PRE-OP/PRE-PROCEDURE DIAGNOSIS: 1) Displaced Left Femoral Neck Fracture, Closed POST-OP/POST-PROCEDURE DIAGNOSIS: 1) Displaced Left Femoral Neck Fracture, Closed SURGERY/PROCEDURE(S): 1) Open Treatment of the Left Femoral Neck Fracture with Prosthetic Replacement (CPT 73421) ANESTHESIA: 1) General ANTIBIOTICS: 1) Ancef 2g IV MEDICATION: 1) TXA 1g IV ESTIMATED BLOOD LOSS: 1) 150 CC FLUIDS: 1) Per Anesthesia Documentation SPECIMENS: 1) Left Femoral Head CLINICAL INDICATIONS: 84 year old male with past medical history significant for hypertension, dementia, recurrent transient ischemic attacks, internal hemorrhoids, anemia, lung nodules, splenic rupture and valvular heart disease presented to [facility] on 10/28/2024 for evaluation after a fall. The patient was found to have a displaced left femoral neck fracture and a T12 compression fracture. The patient was admitted to trauma surgery with orthopaedic trauma surgery and neurosurgery on consultation. The risks, limitations, benefits and alternatives to all treatment options including non-operative and operative management of the patient's left femoral neck fracture were discussed with the patient and the patient's POA (Alcon Patel). The risks of the operation include, but are not limited to, the risks associated with general anesthesia, infection, bleeding, damage to nearby structures (such as arteries, veins, nerves, muscle, tendons, ligaments), chronic pain, acetabular pathology, prosthetic instability/dislocation, periprosthetic fracture, deep venous thromboses, pulmonary embolism, hardware failure and the need for future operations. The patient's POA (Alcon Patel) elected for the patient to proceed with insertion of a left hip hemiarthroplasty for the displaced left femoral neck fracture. All questions and concerns were answered and addressed. The informed consent was reviewed. SURGERY/PROCEDURE DETAILS: The patient was met in the pre-operative holding area on 10/28/2024. A pre-operative huddle was conducted with the surgical team. The patient was identified with two patient identifiers (name and date of ). The patient's operative extremity (left lower extremity) was marked. The pre-operative checklist, including review of the informed consent, was reviewed and agreed upon by all members of the surgical team. The patient was transferred to the operating room. The patient was intubated by anesthesia (endotracheal intubation) and transferred to a radiolucent table. The patient was positioned lateral using a mancera-bag with attention to padding of bony prominences. The patient's left lower extremity was pre-cleansed with alcohol, sterilely prepped (ChloraPrep) and draped in standard orthopaedic fashion. A final time out was then conducted in accordance with [facility] policy. After all members of the surgical team agreed upon the details of the procedure, a posterior skin incision was performed for a Chacorta-Langenbeck approach to the left hip. Electrocautery was utilized for hemostasis. Dissection was performed deep. The iliotibial band and gluteal fascia were incised in line with the incision. The piriformis and obturator internus tendons were identified, tagged and incised. The capsule was incised along the femoral neck and along the posterior femur. The displaced femoral neck fracture was visualized. A saw was utilized to perform a standard neck cut using a neck cutting guide. The femur was retracted anteriorly and the femoral head was removed from the acetabulum. The femoral head measured 49 mm. The acetabulum was cleansed of debris. A corrugated box machine operator was utilized to initiate instrumentation of the femur. A canal finder was subsequently inserted into the left femur. Sequential broaching was performed until a size 7 femoral stem was inserted. A high-offset neck with a standard 49 mm head was trialed. The hip was found to be stable in planes of standard physiologic range of motion. The hip was dislocated and the trial components were removed. The femoral canal and acetabulum were thoroughly irrigated with sterile saline. A size 7 [place] [employer] femoral component with a high-offset neck was inserted into the femoral canal. A standard size 49 mm femoral head was impacted onto the femoral stem. The left hip was reduced and again found to be stable in planes of p (more content not included)... Normal [facility] PT panel Coag (PPP)on 2023 INR Coag (PPP) [Relative time] 1.4 {INR} High 0.9-1.3 [facility] Comment on above: Order Comment: Speci men Type: BLOOD SPECIMENOrdering Facility: [facility] Address: [address] [place] [address] Result Comment: Ritika min K Antagonist (VKA) Therapeutic Range: INR 2 to 3 (Target INR of 2.5) Note: For patients treated with VKA drugs, such as warfarin, the [place] [employer] 2012 Guideline recommends a therapeutic INR range of 2 to 3 (target INR of 2.5). This recommendation includes high-risk patients with antiphospholipid syndrome with previous arterial or venous thromboembolism, current-generation mechanical or bioprosthetic aortic heart valve replacement. Note: Patients with mechanical aortic valve replacement and additional risk factors for thromboembolic events (atrial fibrillation, previous thromboembolism, LV dysfunction, hypercoagulable conditions) or an older generation mechanical AVR (i.e., ball in-Cage) or any mechanical MVR should have a INR therapeutic range of 2.5 to 3.5 (target INR of 3). Guomartt GH, et al. Chest 2012, 141:7S-47S Mine RA, et al. [facility] 2017, 70: 252-289 Performed By: #### 1 4979-9, 50038-7 ####[facility] LABORATORYCLIA [id number] [place] [address] [place] PT Coag (PPP) [Time] 14.6 s High 9.7-13.0 [facility] Comment on above: Order Comment: Speci men Type: BLOOD SPECIMENOrdering Facility: [facility] Address: [address] [place] [address] Performed By: #### 1 4979-9, 54152-3 ####[facility] LABORATORYCLIA [id number] [address] SURGICAL PATHOLOGYon 024 CASE REPORT Normal [facility] Comment on above: Order Comment: Speci men Type: TISSUE SPECIMENOrdering Facility: [facility] Address: [address] [place] [address] Result Comment: Surg ical Pathology Report Case: [id number] Authorizing Provider: Matt Michael MD Collected: 10/28/2024 05:03 PM Ordering Location: [facility] Received: 10/31/2024 08:44 AM Pathologist: Kane Mendez MD Specimen: Femoral Head, Left Performed By: #### S ####[facility] LABORATORYCLIA [id number] [address] CLINICAL HISTORY Normal [facility] Comment on above: Order Comment: Speci men Type: TISSUE SPECIMENOrdering Facility: [facility] Address: [address] [place] [address] Result Comment: Pre- op diagnosis: Fracture of femoral neck (HCC) [S72.009A] Performed By: #### S ####[facility] LABORATORYCLIA [id number] [address] FINAL DIAGNOSIS Normal [facility] Comment on above: Order Comment: Speci men Type: TISSUE SPECIMENOrdering Facility: [facility] Address: [address] [place] [address] Result Comment: Alesia Sears emoral head, left, resection: - Changes consistent with fracture site. Performed By: #### S ####[facility] LABORATORYCLIA [id number] [address] [place] FINAL PERFORMING LAB Normal [facility] Comment on above: Order Comment: Speci men Type: TISSUE SPECIMENOrdering Facility: [facility] Address: [address] [place] [address] Result Comment: Diag nostic interpretation performed at [facility], [address] [place] [address] CLIA# [id number] Milk House Worker: Kane Mendez M.D. Performed By: #### S ####[facility] LABORATORYCLIA [id number] [address] GROSS DESCRIPTION Normal [facility] Comment on above: Order Comment: Speci [facility] Type: TISSUE SPECIMENOrdering Facility: [facility] Address: [address] [place] [address] Result Comment: Alesia Sears emoral Head, Left Received in formalin labeled "femoral head left" is a specimen consisting of a femoral head measuring 5.5 x 5.5 x 4.5 cm. The articulating surface is smooth and glistening. Areas of eburnation and osteophyte formation are not present. The line of resection is jagged and hemorrhagic. Upon sectioning subchondral cysts and necrosis are not present. Soft tissue is not received with the specimen. Sales Team Leader sections are submitted in formalin in 2 cassettes following a period of hydrochloric decalcification. Gross examination performed at [facility], [address] [place] [address] KVB October 31, 2024 10:27 AM Performed By: #### S ####[facility] LABORATORYCLIA [id number] [address] [place] TOXICOLOGY SCREEN, ROUTINE U RINEon 12-13-2024 Amphetamines Confirm (U) [Mass/Vol] Negative Normal Negative [facility] Comment on above: Order Comment: Speci men Type: URINE SPECIMENOrdering Facility: [facility] Address: [address] [place] [address] Result Comment: Cuto ff threshold at 1000 ng/mL. Performed By: #### U TOX2 ####[facility] LABORATORYCLIA [id number] [place] [address] [place] BARBITURATES, URINE Negative Normal Negative [facility] Comment on above: Order Comment: Speci men Type: URINE SPECIMENOrdering Facility: [facility] Address: [address] [place] [address] Result Comment: Cuto ff threshold at 200 ng/mL. Performed By: #### U TOX2 ####[facility] LABORATORYCLIA [id number] [place] [address] [place] BENZODIAZEPINES, UR Negative Normal Negative [facility] Comment on above: Order Comment: Speci men Type: URINE SPECIMENOrdering Facility: [facility] Address: [address] [place] [address] Result Comment: Cuto ff threshold at 200 ng/mL. Performed By: #### U TOX2 ####[facility] LABORATORYCLIA [id number] [place] [address] [place] Cannabinoids Screen Ql (U) Negative Normal Negative [facility] Comment on above: Order Comment: Speci men Type: URINE SPECIMENOrdering Facility: [facility] Address: [address] [place] [address] Result Comment: Cuto ff threshold at 50 ng/mL. Performed By: #### U TOX2 ####[facility] LABORATORYCLIA [id number] [place] [address] [place] Cocaine Ql (U) Negative Normal Negative [facility] Comment on above: Order Comment: Speci men Type: URINE SPECIMENOrdering Facility: [facility] Address: [address] [place] [address] Result Comment: Cuto ff threshold at 300 ng/mL. Performed By: #### U TOX2 ####[facility] LABORATORYCLIA [id number] [address] [place] Ethanol (U) [Mass/Vol] <11 Normal <11 [facility] Comment on above: Order Comment: Speci men Type: URINE SPECIMENOrdering Facility: [facility] Address: [address] [place] [address] Performed By: #### U TOX2 ####[facility] LABORATORYCLIA [id number] [address] [place] Opiates Screen Ql (U) Positive Abnormal Negative [facility] Comment on above: Order Comment: Speci men Type: URINE SPECIMENOrdering Facility: [facility] Address: [address] [place] [address] Result Comment: Cuto ff threshold at 300 ng/mL. Performed By: #### U TOX2 ####[facility] LABORATORYCLIA [id number] [address] oxyCODONE cutoff Screen (U) [Mass/Vol] Negative Normal Negative [facility] Comment on above: Order Comment: Speci men Type: URINE SPECIMENOrdering Facility: [facility] Address: [address] [place] [address] Result Comment: Cuto ff threshold at 100 ng/mL. Performed By: #### U TOX2 ####[facility] LABORATORYCLIA [id number] [address] Phencyclidine Ql (U) Negative Normal Negative [facility] Comment on above: Order Comment: Speci men Type: URINE SPECIMENOrdering Facility: [facility] Address: [address] [place] [address] Result Comment: Cuto ff threshold at 25 ng/mL. Performed By: #### U TOX2 ####[facility]ORY[facility] [id number] [address] [place] TYPE + SCREENon 10-28-2024 ABO A Normal [facility] Comment on above: Order Comment: Speci men Type: BLOOD SPECIMENOrdering Facility: [facility] Address: [address] [place] [address] Performed By: #### T SCR ####[facility] BLOOD BANKCLIA [id number] [place] [address] [facility] Rh Nom (Bld) Positive Normal [facility] Comment on above: Order Comment: Speci men Type: BLOOD SPECIMENOrdering Facility: [facility] Address: [address] [place] [address] Performed By: #### T SCR ####[facility] BLOOD BANKCLIA [id number] [place] [address] [facility] TYPE AND SCREEN EXPIRATION 10/31/2024 23:59 Normal [facility] Comment on above: Order Comment: Speci men Type: BLOOD SPECIMENOrdering Facility: [facility] Address: [address] [place], [place] [id number] Performed By: #### T SCR ####[facility] BLOOD BANKCLIA [id number] [place] [address] [facility] XR HIP 1V LTon 10-28-2024 XR HIP 1V LT * * *Final Report* * * DATE OF EXAM: Oct 28 2024 5:17PM [id number] - XR HIP 1V LT / PROCEDURE REASON: HEMIARTHROPLASTY * * * * Physician Interpretation * * * * EXAMINATION: XR HIP 1V LT HISTORY: HEMIARTHROPLASTY TECHNIQUE: XR HIP 1V LT single intraoperative image of the pelvis COMPARISON: Hip radiograph 04/17/2023 RESULT: See impression IMPRESSION: Single intraoperative image demonstrating left hip arthroplasty in process with current components in proper position. Please see operative report for full details of the procedure. Ski Technician: PSCB Transcribe Date/Time: Oct 31 2024 7:35A Dictated by : ROSEMARY GUILLAUME MD This examination was interpreted and the report reviewed and electronically signed by: ROSEMARY GUILLAUME MD on Oct 31 2024 7:36AM EST [id number] Normal [facility] XR PELVIS 1V APon 10-28-2024 XR PELVIS 1V AP * * *Final Report* * * DATE OF EXAM: Oct 28 2024 6:27PM [id number] - XR PELVIS 1V AP / PROCEDURE REASON: Post-operative / post-procedure assessment * * * * Physician Interpretation * * * * EXAMINATION: XR PELVIS 1V AP CLINICAL HISTORY: post op- done in pacu Technique: XR PELVIS 1V AP -- NOT APPLICABLE with 1 views on 1 images DATE:10/28/2024 6:59 PM Comparison: Intraoperative pelvic radiographs on 10/28/2024 at 1657. RESULT: Status post fresh left hip hemiarthroplasty with postoperative changes of the soft tissue swelling and subcutaneous gas. The metallic femoral head is now placed and appears in good position of the acetabular cap. No definite acute fracture lucency or dislocation. There is a small, 6.8 mm, metallic density projecting the right iliac bone, similar to the prior radiograph on the same day and the radiograph on the 10/27/2024, the etiology is indeterminate. However, and ingested metallic foreign body cannot be excluded. Vascular calcifications. IMPRESSION:Status post fresh left femoral osteotomy and left hip hemiarthroplasty treating transcervical left femoral neck fracture seen on 10/27/2024. The orthopedic hardware appears well seated with no acute complication. There is a small, 6.8 mm, metallic density projecting the right iliac bone, similar to the prior radiograph on the same day and the radiograph on the 10/27/2024 but new since 04/17/2023 radiographs, the etiology is indeterminate but not related to the hip surgery. However, an ingested metallic foreign body or foreign body within the soft tissues cannot be excluded. Recommend radiographic follow-up. URGENT RESULTS Acuity: Urgent Communication: Dr. Sung Communicated with Cayla Esteban DO on 1926 via verbal communication. --END OF FINDING-- Ski Technician: NORMA Transcribe Date/Time: Oct 28 2024 6:59P Dictated by : LANDY SUNG MD This examination was interpreted and the report reviewed and electronically signed by: LANDY SUNG MD on Oct 28 2024 7:28PM EST [id number] Normal [facility] XR THORACO LUMBAR JNCT 2V AP /LATon 10-28-2024 XR THORACO LUMBAR JNCT 2V AP/LAT * * *Final Report* * * DATE OF EXAM: Oct 28 2024 8:27PM [id number] - XR THORACO LUMBAR JNCT 2V AP/LAT / PROCEDURE REASON: Suspected fracture * * * * Physician Interpretation * * * * EXAM TITLE: XR THORACO LUMBAR JNCT 2V AP/LAT DATE: 10/28/2024 INDICATION: Follow-up fracture COMPARISON: CT scan dated 10/27/2024 AP and lateral views of the thoracic spine show S-shaped scoliosis of the thoracolumbar spine. There is compression deformity of T12 which is lost approximately 90% vertebral body height similar to prior CT scan. Not be slightly visualized on lateral view. Opacity noted in the right lung. May represent infiltrate. IMPRESSION: Compression deformity at the level of T12 similar to prior CT scan. Opacity in the right midlung. Question infiltrate versus atelectasis as seen on prior CT scan. Ski Technician: NORMA Transcribe Date/Time: Oct 31 2024 8:48A Dictated by : ALE BUSTILLO MD This examination was interpreted and the report reviewed and electronically signed by: ALE BUSTILLO MD on Oct 31 2024 8:51AM EST [id number] Normal [facility] aPTT PPPon 10-28-2024 aPTT Coag (PPP) [Time] 25.8 s Normal 23.0-32.4 [facility] Comment on above: Order Comment: Speci men Type: BLOOD SPECIMENOrdering Facility: [facility] Address: [address] [place] [address] Performed By: #### 1 4979-9, 59009-0 ####[facility] LABORATORYCLIA [id number] [place] [address] [place] 12 Lead EKGon 10-27-2024 12 Lead EKG [facility] Cardiovascular Services [address] [place] [address] 12 Lead EKG 10/27/24 2326 MR#: [id number] Acct: [id number] Name: ANASTACIO PATEL Rep #: [id number] : 1940 84 From: Jose Dixon MD Attending Dr: Status: DEP ER Ordering Dr: Min Ortega DO Date: 10/27/24 Location: ED Sex: M C Admitted: Test Reason : FALL Blood Pressure : */* mmHG Vent. Rate : 61 BPM Atrial Rate : 61 BPM P-R Int : 214 ms QRS Dur : 82 ms QT Int : 446 ms P-R-T Axes : 84 -1 70 degrees QTcB Int : 448 ms Sinus rhythm with 1st degree A-V block Otherwise normal ECG Confirmed by KENYATTA SINGH, LISA ([id number]), editorial manager JULIETA FARRELL ([id number]) on 11/02/2024 1:28:28 PM Referred By: Min Ortega Confirmed By: LISA DIXON MD 11/02/24 1328 Date Jose Dixon MD CC: Dr. Piero Rubin MD; Min Ortega DO Signed Normal [facility] Basic Metabolic Profile (BMP )on 10-27-2024 BUN/CRE 23.7 RATIO High 10-20 [facility] Comment on above: Performed By: #### L 100.0100, L500.2500 #### [facility] Laboratory [address] [place], [address] CA,Total 9.5 mg/dL Normal 8.5-10.1 [facility] Comment on above: Performed By: #### L 100.0100, L500.2500 #### [facility] Laboratory [address] [place], [address] Chloride [Moles/Vol] 107 mmol/L Normal 98-107 [facility] Comment on above: Performed By: #### L 100.0100, L500.2500 #### [facility] Laboratory [address] [place], [address] CO2 [Moles/Vol] 33.0 mmol/L High 21.0-32.0 [facility] Comment on above: Performed By: #### L 100.0100, L500.2500 #### [facility] Laboratory [address] [place], [address] Creatinine [Mass/Vol] 1.56 mg/dL High 0.70-1.30 [facility] Comment on above: Result Comment: The validity of the calculated GFR GFRAA in patients over 70 years has not been determined. Clinical correlation is essential. Performed By: #### L 100.0100, L500.2500 #### [facility] Laboratory [address] [place], [address] ECRCL 26.34 ml/min Normal [facility] Comment on above: Performed By: #### L 100.0100, L500.2500 #### [facility] Laboratory [address] [place], [address] EST GFR - AA 55 mL/min Low >60 [facility] Comment on above: Result Comment: Afri can [place] GFR Calc Performed By: #### L 100.0100, L500.2500 #### [facility] Laboratory [address] [place], [address] GAP 2 Low 5-15 [facility] Comment on above: Performed By: #### L 100.0100, L500.2500 #### [facility] Laboratory [address] [place], [address] GFR/1.73 sq M.predicted among non-blacks MDRD (S/P/Bld) [Vol rate/Area] 45 mL/min/{1.73_m2} Low >60 [facility] Comment on above: Result Comment: Non- GFR Calc Performed By: #### L 100.0100, L500.2500 #### [facility] Laboratory [address] [place], [address] Glucose [Mass/Vol] 90 mg/dL Normal 74-106 [facility] Comment on above: Performed By: #### L 100.0100, L500.2500 #### [facility] Laboratory [address] [place], [address] Potassium [Moles/Vol] 4.8 mmol/L Normal 3.5-5.1 [facility] Comment on above: Performed By: #### L 100.0100, L500.2500 #### [facility] Laboratory [address] [place], [address] Sodium [Moles/Vol] 142 mmol/L Normal 136-145 [facility] Comment on above: Performed By: #### L 100.0100, L500.2500 #### [facility] Laboratory [address] [place], [address] Urea nitrogen [Mass/Vol] 37 mg/dL High 7-18 [facility] Comment on above: Performed By: #### L 100.0100, L500.2500 #### [facility] Laboratory [address] [place], [address] Brain/Head without Contrasto n 10-27-2024 Brain/Head without Contrast [facility] Imaging Services [address] [place] [address] Brain/Head without Contrast MR#: [id number] Acct: [id number] Name: ANASTACIO PATEL Rep #: [id number] : 1940 M 84 From: Ham roberts MD PCP: Dr. Piero Rubin MD Status: REG ER Study: Brain/Head without Contrast Date of Exam: 10/16 01/09 Exam# [id number] Ordering Dr: Min Ortega DO [id number] STUDY: CT BRAIN WITHOUT CONTRAST REASON FOR EXAM: Male, 84 years old. fall RADIATION DOSAGE (If Supplied By Facility): CTDIvol = ( 44.99 ) mGy, DLP = ( 897.35 ) mGycm TECHNIQUE: Transaxial CT imaging of the brain was performed without administration of intravenous contrast material. Individualized dose optimization techniques were used for this CT. COMPARISON: 04/18/2023 FINDINGS: Normal soft tissue structures. Normal calvarium. There is mild cerebral atrophy with widening of the extra-axial spaces and ventricular dilatation. There are areas of decreased attenuation within the white matter tracts of the supratentorial brain, consistent with microvascular disease changes. 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 Normal brainstem. There is mild cerebellar atrophy. There is no intracranial hemorrhage. There are no findings of an acute ischemic infarction. Normal visualized paranasal sinuses. CT/Brain/Head without Contrast IMPRESSION: Chronic involutional changes of the brain. No change or acute abnormality. Electronically Signed: Ham Wilson MD at 22:55 EST , CC: Dr. Piero Rubin MD; Min Ortega DO Ski Technician: Signed Normal [facility] CBC W/Diff, Automatedon 10-16 Absolute Lymph 2.65 X10 3/uL Normal 0.83-4.51 [facility] Comment on above: Performed By: #### L 100.0100, L500.2500 #### [facility] Laboratory [address] [place], [address] Absolute Neut 1.9 X10 3/uL Low 2.0-7.7 [facility] Comment on above: Performed By: #### L 100.0100, L500.2500 #### [facility] Laboratory [address] [place], [address] Basophils/100 WBC (Bld) 0.5 % Normal 0-1 [facility] Comment on above: Performed By: #### L 100.0100, L500.2500 #### [facility] Laboratory [address] [place], [address] Eosinophils/100 WBC (Bld) 4.5 % Normal 0-5 [facility] Comment on above: Performed By: #### L 100.0100, L500.2500 #### [facility] Laboratory [address] [place], [address] Erythrocyte distribution width (RBC) [Ratio] 14.7 % High 11.6-14.6 [facility] Comment on above: Performed By: #### L 100.0100, L500.2500 #### [facility] Laboratory [address] [place], [address] Hematocrit (Bld) [Volume fraction] 34.0 % Low 40-54 [facility] Comment on above: Performed By: #### L 100.0100, L500.2500 #### [facility] Laboratory [address] [place], [address] Hemoglobin (Bld) [Mass/Vol] 10.8 g/dL Low 13.0-16.5 [facility] Comment on above: Performed By: #### L 100.0100, L500.2500 #### [facility] Laboratory [address] [place], [address] IG% 0.400 Normal 0.0-0.9 [facility] Comment on above: Result Comment: IG% - Immature Granulocytes (promyelocytes, myelocytes and metamyelocytes) > 1% indicates that a LEFT SHIFT is Present. Performed By: #### L 100.0100, L500.2500 #### [facility] Laboratory [address] [place], [address] Lymphocytes/100 WBC (Bld) 47.6 % High 19-41 [facility] Comment on above: Performed By: #### L 100.0100, L500.2500 #### [facility] Laboratory [address] [place], [address] MCH (RBC) [Entitic mass] 32.1 pg High 27.0-32.0 [facility] Comment on above: Performed By: #### L 100.0100, L500.2500 #### [facility] Laboratory [address] [place], [address] MCHC (RBC) [Mass/Vol] 31.8 g/dL Low 32-36 [facility] Comment on above: Performed By: #### L 100.0100, L500.2500 #### [facility] Laboratory [address] [place], [address] MCV (RBC) [Entitic vol] 101.2 fL High 80-94 [facility] Comment on above: Performed By: #### L 100.0100, L500.2500 #### [facility] Laboratory [address] [place], [address] Monocytes/100 WBC (Bld) 13.5 % High 0-10 [facility] Comment on above: Performed By: #### L 100.0100, L500.2500 #### [facility] Laboratory [address] [place], [address] Neutrophils/100 WBC (Bld) 33.5 % Low 47-70 [facility] Comment on above: Performed By: #### L 100.0100, L500.2500 #### [facility] Laboratory [address] [place], [address] Nucleated RBC (Bld) [#/Vol] 0 10*3/uL Normal 0-5 [facility] Comment on above: Performed By: #### L 100.0100, L500.2500 #### [facility] Laboratory [address] [place], [address] Platelet mean volume (Bld) [Entitic vol] 12.3 fL High 6.2-12.0 [facility] Comment on above: Performed By: #### L 100.0100, L500.2500 #### [facility] Laboratory [address] [place], [address] Platelets (Bld) [#/Vol] 152 10*3/uL Normal 150-450 [facility] Comment on above: Performed By: #### L 100.0100, L500.2500 #### [facility] Laboratory [address] [place], [address] RBC (Bld) [#/Vol] 3.36 10*6/uL Low 4.6-6.2 [facility] Comment on above: Performed By: #### L 100.0100, L500.2500 #### [facility] Laboratory [address] [place], [address] RDW SD 54.9 fl High 35.1-43.9 [facility] Comment on above: Performed By: #### L 100.0100, L500.2500 #### [facility] Laboratory [address] [place], [address] WBC (Bld) [#/Vol] 5.6 10*3/uL Normal 4.4-11.0 [facility] Comment on above: Performed By: #### L 100.0100, L500.2500 #### [facility] Laboratory [address] [place], [address] Chest 1 View (Portable)on Chest 1 View (Portable) [facility] Imaging Services [address] [place] [address] Chest 1 View (Portable) MR#: [id number] Acct: [id number] Name: ANASTACIO PATEL Rep #: [id number] : 1940 M 84 From: Moe Schmitz MD PCP: Dr. Piero Rubin MD Status: [facility] ER Study: Chest 1 View (Portable) Date of Exam: 10/27/24 Exam# [id number] Ordering Dr: Min Ortega DO [id number] INDICATION: Trauma, fall EXAMINATION/TECHNIQUE: X-RAY - portable supine AP chest x-ray COMPARISON: 10/02/2023 FINDINGS: LINES/DEVICES: None. LUNGS: Hyperinflation. Extensive fibrotic changes in the right midlung field, more extensive than on prior chest x-ray. Possible 2.3 cm nodular lesion right midlung field. MEDIASTINUM AND CARDIOVASCULAR STRUCTURES: Cardiac silhouette stable within normal limits. BONES AND SOFT TISSUES: Displaced fractures right sixth and seventh ribs posterior laterally. RAD/Chest 1 View (Portable) IMPRESSION: Extensive fibrotic changes right midlung field with possible 2.3 cm nodular lesion. Recommend further evaluation by chest CT. Displaced fractures right sixth and seventh ribs. Electronically Signed: Moe Schmitz MD at 23:42 EST , CC: Dr. Piero Rubin MD; Min Ortega DO Ski Technician: Signed Normal [facility] Chest without Contraston Chest without Contrast [facility] Imaging Services [address] [place] [address] Chest without Contrast MR#: [id number] Acct: [id number] Name: ANASTACIO PATEL Rep #: [id number] : 1940 84 From: Moe Schmitz MD PCP: Dr. Piero Rubin MD Status: REG ER Study: Chest without Contrast Date of Exam: 10/27/24 Exam# [id number] Ordering Dr: Min Ortega DO [id number] INDICATION: Trauma, fall, injury EXAMINATION: CT CHEST WITHOUT CONTRAST - CT Chest W/O Contrast Injection TECHNIQUE: Helically acquired images were obtained of the chest. A radiation dose optimization technique was used for this scan. IV Contrast dosage and agent: None. COMPARISON: 07/02/2023 FINDINGS: LUNGS, PLEURA AND LARGE AIRWAYS: Stable right upper and middle lobe fibrosis with volume loss. Right middle lobe nodule decreased from 9 x 13 mm to current 6 x 9 mm. Stable 10 mm lingular nodule laterally. No consolidations or mass lesions. No pleural effusion or pneumothorax. THYROID: No thyroid lesions. HEART AND PERICARDIUM: Heart size is normal. No pericardial effusion. Coronary artery calcifications noted. VESSELS: Stable 4.1 cm aneurysmal dilatation ascending thoracic aorta. MEDIASTINUM AND RODY: No mediastinal or hilar adenopathy. Esophagus is unremarkable. No hiatal hernia. UPPER ABDOMEN: No acute pathology. BONES: Progression of T12 compression fracture since prior study. Multiple right rib fractures with evidence of healing, greatest displacement at the levels of seventh and eighth ribs laterally. Multiple left rib fractures with evidence of healing, no significant displacement. CT/Chest without Contrast IMPRESSION: Multiple, bilateral rib fractures with greatest displacement at the right seventh and eighth ribs laterally. Evidence of healing callus formation associated with most of the rib fractures. Progression of T12 compression fracture. Significant regression of right middle lobe nodule with stable lingular nodule measuring up to 10 mm. Further 3 month follow-up recommended. 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 Electronically Signed: Moe Schmitz MD at 0:00 EST Reading Location ID and State: [address] [place] [address] Tel , Service support , CC: Dr. Piero Rubin MD; Min Ortega DO Ski Technician: Signed Normal [facility] HIP, UNI W/ Pelvis 2-3 Views on 10-27-2024 HIP, UNI W/ Pelvis 2-3 Views [facility] Imaging Services [address] [place], [place] [id number] HIP, UNI W/ Pelvis 2-3 Views MR#: [id number] Acct: [id number] Name: ANASTACIO PATEL Rep #: [id number] : 1940 M 84 From: Moe Schmitz MD PCP: Dr. Piero Rubin MD Status: REG ER Study: HIP, UNI W/ Pelvis 2-3 Views Date of Exam: 11/08 Exam# [id number] Ordering Dr: Min Ortega DO [id number] INDICATION: Trauma, fall, left hip pain EXAMINATION/TECHNIQUE: X-RAY - XR Hip Unilateral with Pelvis when performed; 2-3 Views COMPARISON: Prior study dated: 04/18/2023 FINDINGS: PELVIC BONES: No displaced fracture, destructive or sclerotic lesions. Note that overlapping bowel shadows may however obscure fine detail. Sacroiliac joints are unremarkable. No widening of the pubic symphysis. HIPS: Hip joint space narrowing bilaterally. Angulated fracture at the left femoral neck, left femoral head in the acetabulum. SOFT TISSUES: Extensive vascular calcifications. RAD/HIP, UNI W/ Pelvis 2-3 Views IMPRESSION: Angulated fracture left femoral neck. Electronically Signed: Moe Schmitz MD at 23:45 EST Reading Location ID and State: [address] [place] [address] Tel , Service support , CC: Dr. Piero Rubin MD; Min Ortega DO Ski Technician: Signed Normal [facility] Partial Thromboplast Timeon 10-27-2024 aPTT Coag (Bld) [Time] 28.7 s Normal 24.1-36.2 [facility] Comment on above: Performed By: #### L 300.8598, L331.9519 ####[facility] [id number] [place], [place], [id number] Prothrombin Time w/INRon INR Coag (PPP) [Relative time] 1.5 {INR} Normal [facility] Comment on above: Performed By: #### L 300.3900, L300.4310 ####[facility] [id number] [place], [address] PT Coag (PPP) [Time] 18.2 s High 11.7-14.9 [facility] Comment on above: Performed By: #### L 300.3900, L300.4310 ####[facility] [id number] [place], [address] Spine Cervical without Contr ason 10-27-2024 Spine Cervical without Contras [facility] Imaging Services [address] [place] [address] Spine Cervical without Contras MR#: [id number] Acct: [id number] Name: ANASTACIO PATEL Rep #: [id number] : 1940 M 84 From: Moe Schmitz MD PCP: Dr. Piero Rubin MD Status: REG ER Study: Spine Cervical without Contras Date of Exam: 1 12/28/23 Exam# [id number] Ordering Dr: Min Ortega DO [id number] INDICATION: pain EXAMINATION: CT CERVICAL SPINE - CT Spine Cervical W/O Contrast Injection TECHNIQUE: Helically acquired images were obtained of the cervical spine. 2D reformatted images were reviewed. A radiation dose optimization technique was used for this scan. IV Contrast dosage and agent: None. COMPARISON: 04/18/2023 FINDINGS: VERTEBRAE: No acute fracture of the cervical spine. Anatomic alignment. DISCS and SPINAL CANAL: Stable degenerative changes with multilevel facet joint hypertrophy. No critical stenosis. NECK SOFT TISSUES: No prevertebral soft tissue swelling. LUNG APICES: No acute pulmonary findings. Stable calcified pleural disease. CT/Spine Cervical without Contras IMPRESSION: Stable diffuse degenerative changes. No acute fracture of the cervical spine. Electronically Signed: Moe Schmitz MD at 23:15 EST , CC: Dr. Piero Rubin MD; Min Ortega DO Ski Technician: Signed Normal [facility] Urinalysis, Completeon 10-27 BACTERIA 0 SEEN Normal None Seen [facility] [facility] Comment on above: Order Comment: COLLE CTOR TO SPECIFY Performed By: #### L [id number] ####[facility] [id number] [place], [address] EPI,SQUAMOUS 0 SEEN Normal 0-5 [facility] Comment on above: Order Comment: COLLE CTOR TO SPECIFY Performed By: #### [id number] ####[facility] [address] [place], [address] Mucus Ql (Urine sed) 0 SEEN Normal [facility] Comment on above: Order Comment: [facility] CTOR TO SPECIFY Performed By: #### [id number] ####[facility] [id number] [place], [address] RBC 0 SEEN Normal [address] [place] [address] Comment on above: Order Comment: COLLE CTOR TO SPECIFY Performed By: #### [id number] ####[facility] [address] [place], [address] WBC 0 SEEN Normal 0-5 [facility] Comment on above: Order Comment: [facility] CTOR TO SPECIFY Performed By: #### [id number] ####[facility] [address] [place], [address] [facility] ANASTACIO PATEL ([id number]) 1940 M Date Time Provider Department 10/25/24 PIERO RUBIN During your visit today, we recorded the following information about you: Piero Rubin MD 10/25/2024 9:08 PM Signed Contact [facility] and speak with patient's nurse and let her know I received the fax for the request for the tramadol 25 mg in the afternoon for breack though pain.. she if she feels it would be better to just change the orders to 1/2-1 tab every 6 hrs as needed for pain with a max of three pills a day. Also see if they feel consulting care for pain control would be a good idea? Julieta Lee RN 10/26/2024 9:06 AM Signed Sarahi nurse at [facility] called and is notified of providers message and instructions. She voices understanding and states changing the orders to, "change the orders to 1/2-1 tab every 6 hrs as needed for pain with a max of three pills a day", would probably be the best. She states the Pt already sees pain management and he was just there on Thursday. They increased his Butrans patch from 5 mg to 10 mg weekly, and it gets changed weekly. She said she doesn't think this has been helping the Pt much with his pain. The also ordered an MRI of the Pts back. She states the Pt has been taking the 50 mg Tramadol routine at 5 am and again between 7-8 pm, then he will have Tylenol extra strength 1000 mg at 8 am with breakfast, She states the Pt is in severe pain all the time and it never goes away. She states his pain is usually at a 7-10/10 pain in his back. She states Pt has a friend that is a nurse at [facility] and she had suggested to him that he ask for the 25 mg Tramadol for breakthrough pain in the afternoon. Please fax new pain medication orders back to [facility]. MICHAEL Frias Jeffrey A, MD 10/26/2024 2:58 PM Signed Let nursing know that I was never made aware till now that the patient had started seeing pain management. All future controlled pain meds will need to come from pain management. I will not longer be writing for them. A patient should never be receiving a narcotic from two different providers. Dipti Sheets LPN 10/27/2024 1:55 PM Signed Phoned Lisa and spoke to Sarahi and went over notes below from Dr Rubin with understanding. 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 - traMADol (ULTRAM) 50 mg tablet Take 1 tablet by mouth every 8 hours as needed for pain for up to 60 days. - finasteride (PROPECIA) 1 mg tablet Take 1 tablet by mouth once daily. - donepezil (ARICEPT) 10 mg tablet Take 1 tablet by mouth daily at bedtime. Per Neuro: Dr. Gentile. - Ipratropium [place] (ATROVENT) 21 mcg (0.03 %) nasal spray Use 2 Sprays in the nose every 12 hours. - gabapentin (NEURONTIN) 300 mg capsule Take 1 capsule by mouth three times daily for 180 days. - losartan (COZAAR) 100 mg tablet Take 100 mg by mouth once daily. Take one tablet daily - baclofen 10 mg tablet Take 1 tablet by mouth three times daily as needed (muscle spasms). - acetaminophen (TYLENOL EXTRA STRENGTH) 500 mg tablet Take 2 tablets by mouth every 8 hours as needed for pain. - loperamide HCl (IMODIUM) 2 mg tab Take 1 tablet by mouth as needed. For loose stools at [place] - hydrocortisone 2.5 % cream Apply 1 application to affected area twice daily. APPLY TO AFFECTED AREAS - meclizine (ANTIVERT) 25 mg tab Take 1 tablet by mouth every 6 hours as needed (dizziness). - DAILY MULTIVITAMIN TAB Take one(1) tablet daily. 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 [facility] ANASTACIO PATEL ([id number]) 1940 M Date Time Provider Department 08/26/24 [facility] your visit today, we recorded the following information about you: Piero Rubin MD 08/26/2024 2:36 PM Signed Received fax from yeppt on patient. He pulled a muscle in his back and he has been using tramadol prn. Patient requesting muscle relaxer. Please advise Lisa that patient already has Baclofen 10 mg TID prn muscle spam's ordered. Franchesca Bautista MA 08/26/2024 2:38 PM Signed Already addressed in another encounter. Dr. Rubin aware. Franchesca Bautista MA Allergies As of Date: 08/26/2024 (No Known Allergies) Date Reviewed: 03/11/2024 Reviewed by: Idania Mcdaniels MA - Fully Assessed Reason for Visit: Patient Update [1234] Prescriptions as of 08/26/2024 - finasteride (PROPECIA) 1 mg tablet Take 1 tablet by mouth once daily. - donepezil (ARICEPT) 10 mg tablet Take 1 tablet by mouth daily at bedtime. Per Neuro: Dr. Gentile. - Ipratropium [place] (ATROVENT) 21 mcg (0.03 %) nasal spray Use 2 Sprays in the nose every 12 hours. - bisacodyl (DULCOLAX, BISACODYL,) 10 mg supp 1 Suppository by RECTAL route once daily as needed for constipation. - gabapentin (NEURONTIN) 300 mg capsule Take 1 capsule by mouth three times daily for 180 days. - losartan (COZAAR) 100 mg tablet Take 100 mg by mouth once daily. Take one tablet daily - baclofen 10 mg tablet Take 1 tablet by mouth three times daily as needed (muscle spasms). - acetaminophen (TYLENOL EXTRA STRENGTH) 500 mg tablet Take 2 tablets by mouth every 8 hours as needed for pain. - loperamide HCl (IMODIUM) 2 mg tab Take 1 tablet by mouth as needed. For loose stools at [place] - hydrocortisone 2.5 % cream Apply 1 application to affected area twice daily. APPLY TO AFFECTED AREAS - meclizine (ANTIVERT) 25 mg tab Take 1 tablet by mouth every 6 hours as needed (dizziness). - DAILY MULTIVITAMIN TAB Take one(1) tablet daily. 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] 04/21/2016 Microcytic anemia [D50.9] 08/26/2017 07/25/2020 Benign hypertension [I10] 12/30/2017 Osteoarthritis of spine with radiculopathy, lum*05/04/2018 Macrocytic anemia [D53.9] 07/25/2020 Medicare annual wellness visit, subsequent [Z00*08/23/2021 Living will on file at physician's office [Z78.*08/25/2022 Advance directive discussed with patient [Z71.8*08/25/2022 Abnormal radionuclide bone scan [R94.8] 06/29/2023 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, M*07/01/2023 T12 compression fracture, initial encounter (HC*07/14/2023 Dementia (HCC) [F03.90] 10/26/2023 History of recurrent TIAs [Z86.73] 12/14/2023 Bronchiectasis without complication (HCC) [J47.*12/25/2023 Valvular heart disease [I38] 12/25/2023 Risk for falls [Z91.81] 03/11/2024 Encounter Status:Closed by FRANCHESCA BAUTISTA on 08/26/24 Normal [facility] CNPN Telephone (FAMPWS) -- ANASTACIO PATLE ([id number]) 1940 M Date Time Provider Department 08/26/24 PIERO RUBIN During your visit today, we recorded the following information about you: Lili Lloyd LPN 08/26/2024 2:22 PM Signed Issa from [facility] calling, they sent a fax requesting a muscle relaxer for patient. They are asking to please disregard fax. Patient already has baclofen on file with them. Franchesca Bautista MA 08/26/2024 2:27 PM Signed Disregarded. Franchesca Bautista MA Allergies As of Date: 08/26/2024 (No Known Allergies) Date Reviewed: 03/11/2024 Reviewed by: Idania Mcdaniels MA - Fully Assessed Prescriptions as of 08/26/2024 - finasteride (PROPECIA) 1 mg tablet Take 1 tablet by mouth once daily. - donepezil (ARICEPT) 10 mg tablet Take 1 tablet by mouth daily at bedtime. Per Neuro: Dr. Gentile. - Ipratropium [place] (ATROVENT) 21 mcg (0.03 %) nasal spray Use 2 Sprays in the nose every 12 hours. - bisacodyl (DULCOLAX, BISACODYL,) 10 mg supp 1 Suppository by RECTAL route once daily as needed for constipation. - gabapentin (NEURONTIN) 300 mg capsule Take 1 capsule by mouth three times daily for 180 days. - losartan (COZAAR) 100 mg tablet Take 100 mg by mouth once daily. Take one tablet daily - baclofen 10 mg tablet Take 1 tablet by mouth three times daily as needed (muscle spasms). - acetaminophen (TYLENOL EXTRA STRENGTH) 500 mg tablet Take 2 tablets by mouth every 8 hours as needed for pain. - loperamide HCl (IMODIUM) 2 mg tab Take 1 tablet by mouth as needed. For loose stools at [place] - hydrocortisone 2.5 % cream Apply 1 application to affected area twice daily. APPLY TO AFFECTED AREAS - meclizine (ANTIVERT) 25 mg tab Take 1 tablet by mouth every 6 hours as needed (dizziness). - DAILY MULTIVITAMIN TAB Take one(1) tablet daily. 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] 04/21/2016 Microcytic anemia [D50.9] 08/26/2017 07/25/2020 Benign hypertension [I10] 12/30/2017 Osteoarthritis of spine with radiculopathy, lum*05/04/2018 Macrocytic anemia [D53.9] 07/25/2020 Medicare annual wellness visit, subsequent [Z00*08/23/2021 Living will on file at physician's office [Z78.*08/25/2022 Advance directive discussed with patient [Z71.8*08/25/2022 Abnormal radionuclide bone scan [R94.8] 06/29/2023 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, M*07/01/2023 T12 compression fracture, initial encounter (HC*07/14/2023 Dementia (HCC) [F03.90] 10/26/2023 History of recurrent TIAs [Z86.73] 12/14/2023 Bronchiectasis without complication (HCC) [J47.*12/25/2023 Valvular heart disease [I38] 12/25/2023 Risk for falls [Z91.81] 03/11/2024 Encounter Status:Closed by FRANCHESCA BAUTISTA on 08/26/24 Normal [facility] Cerv Spine 4 or 5 Viewson Cerv Spine 4 or 5 Views [facility] Imaging Services [address] [place] [address] Cerv Spine 4 or 5 Views MR#: [id number] Acct: [id number] Name: ANASTACIO PATEL Rep #: [id number] : 1940 M 84 From: Ale Alvarez MD PCP: Dr. Piero Rubin MD Status: REG CLI Study: Cerv Spine 4 or 5 Views Date of Exam: 07/29/24 Exam# [id number] Ordering Dr: Dipti Smith [id number] STUDY: X-RAY - CERVICAL SPINE REASON FOR EXAM: Male, 84 years old. Neck pain. TECHNIQUE: 7 view(s) of the cervical spine were obtained. COMPARISON: CT of the cervical spine dated April 18, 2023 FINDINGS: Marked osteopenia. Normal anterior atlantoaxial articulation. Normal odontoid process. Normal cervical lordosis. Moderate to marked diffuse uncovertebral and facet sclerosis. Intervertebral disc space narrowing diffusely, most marked in the lower cervical spine. Anterior bony neural foraminal encroachment bilaterally most marked at C3-4, C4-5 and C5-6. Right carotid calcification. RAD/Cerv Spine 4 or 5 Views IMPRESSION: Osteopenia with moderate to marked lower cervical spondylosis as described. Electronically Signed: Ale Alvarez MD at 14:08 EDT , CC: Dipti Smith; Dr. Piero Rubin MD Ski Technician: Signed [facility] CNOVon 03-11-2024 CNOV Office Visit (FAMPWS ) -- PAGNIANO,ANASTACIO F ([id number]) 1940 M Date Time Provider Department 03/11/24 11:00 AM PIERO RUBIN During your visit today, we recorded the following information about you: Pulse Respiration Blood pressure Weight 68/minute 16/minute 140/80 51.7 kg Piero Rubin MD 03/11/2024 3:59 PM Signed Chief Complaint Patient presents with: Follow Up HPI Anastacio Patel is a 84 year old male who presents here today for discussion. 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 Patient is currently in [place]. Has dementia and seeing Neuro. Due to his memory issues he is living in assisted living for safety and assistance with his care. Patient is here today with one of his sons (Matt) and a family friend. Patient saw neuro a few months back and had a better MMSE and was told that it should be ok to return home and drive. Patient would be living alone. He has had issues with balance and falls. Casper does not live here and the other son Alcon is the primary intensive care unit nurse but not always able to be with his dad. Past medical history, appointments, medications, allergies reviewed. 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 Previous Surgical History PAST SURGICAL HISTORY Procedure [...] Take 1 tablet by mouth once daily. donepezil (ARICEPT) 10 mg tablet Take 1 tablet by mouth daily at bedtime. Per Neuro: Dr. Gentile. Ipratropium [place] (ATROVENT) 21 mcg (0.03 %) nasal spray Use 2 Sprays in the nose every 12 hours. traMADol (ULTRAM) 50 mg tablet Take 1 tablet by mouth every 8 hours as needed for pain. losartan (COZAAR) 100 mg tablet Take 100 mg by mouth once daily. Take one tablet daily baclofen 10 mg tablet Take 1 tablet by mouth three times daily as needed (muscle spasms). acetaminophen (TYLENOL EXTRA STRENGTH) 500 mg tablet Take 2 tablets by mouth every 8 hours as needed for pain. (Patient taking differently: Take 1,000 mg by mouth every 8 hours as needed for pain. Using Tylenol Arthritis 650mg PRN) DAILY MULTIVITAMIN TAB Take one(1) tablet daily. bisacodyl (DULCOLAX, BISACODYL,) 10 mg supp 1 Suppository by RECTAL route once daily as needed for constipation. gabapentin (NEURONTIN) 300 mg capsule Take 1 capsule by mouth three times daily for 180 days. loperamide HCl (IMODIUM) 2 mg tab Take 1 tablet by mouth as needed. For loose stools at [place] hydrocortisone 2.5 % cream Apply 1 application to affected area twice daily. APPLY TO AFFECTED AREAS meclizine (ANTIVERT) 25 mg tab Take 1 tablet by mouth every 6 hours as needed (dizziness). No current facility-administered medications on file prior to visit. Social History Social History Tobacco Use Smoking status: Former Packs/day: 0.25 Years: 30.00 Additional pack years: 0.00 Total pack years: 7.50 Types: Cigarettes Quit date: 03/15/1990 Years since quittin.0 Smokeless tobacco: Never Tobacco comments: Quit smoking in his 50s. Substance Use Topics Alcohol use: Yes Alcohol/week: 1.0 standard drink of alcohol Types: 1 Cans of beer per week Comment: Occasional. Drug use: No Review of Symptoms REVIEW OF SYSTEMS NA EXAM: BP 140/80 (BP Site: Right Arm, BP Position: Sitting, BP Cuff Size: Regular Adult) Pulse 68 Resp 16 Wt 51.7 kg (more content not included)... Normal [facility] Neurology Visit Reporton Neurology Visit Report [facility] [address], [address] [place] [address] OFFICE VISIT Date of Service: 02/01/24 MR#: [id number] Acct: [id number] Name: ANASTACIO PATEL Rep #: [id number] : 1940 Provider: Dr. Rahul mitchell MD Age/Sex: 84/M Location: [facility]. Status: Signed Intake Vital Signs 10/01/23 08:58 10/02/23 16:37 02/01/24 08:35 Height 5 ft 8 in 5 ft 8 in Weight: 106 lb 8 oz BP 125/78 H Blood Pressure Location Lt brachial Position Sitting Respiration 16 Pulse 92 Pulse Source Monitor Temp 97.7 F L Temp Source Temporal Pulse Oximetry (%) 98 Oxygen Delivery Method room air Intake Visit Reasons: 4 month f/u Chief Complaint: Est Care Accompanied by: Son Allergies No Known Allergies Allergy (Verified 02/01/24 08:36) Medications baclofen 10 mg tablet 5 mg (1/2 x 10 mg) PO TID PRN Muscle Spasm 30 days #90 tabs 05/12/23 [Rx Confirmed 10/01/23] gabapentin 300 mg capsule 300 mg PO TID 30 days #90 caps 05/12/23 [Rx Confirmed 10/01/23] losartan 100 mg tablet 100 mg PO DAILY 30 days #30 tabs 05/12/23 [Rx Confirmed 10/01/23] tramadol 50 mg tablet 50 mg PO Q8H PRN 07/15/23 [History Confirmed 10/01/23] acetaminophen 325 mg tablet (Tylenol) 650 mg PO Q4H PRN 10/01/23 [History Confirmed 10/01/23] acetaminophen 650 mg tablet,extended release (Tylenol 8 Hour) 650 mg PO Q8H 10/01/23 [History Confirmed 10/01/23] finasteride 1 mg tablet 1 mg PO DAILY 10/01/23 [History Confirmed 10/01/23] melatonin 5 mg capsule mg PO QHS PRN 10/01/23 [History Confirmed 10/01/23] multivitamin (Multiple Vitamins tablet) 1 tab PO DAILY 10/01/23 [History Confirmed 10/01/23] donepezil 10 mg tablet 10 mg PO QHS #30 tabs 02/01/24 [Rx Confirmed 02/01/24] memantine 14 mg capsule sprinkle,extended release 24hr 14 mg PO DAILY 02/01/24 [History Confirmed 02/01/24] memantine 21 mg capsule sprinkle,extended release 24hr 21 mg PO DAILY 02/01/24 [History Confirmed 02/01/24] memantine 28 mg capsule sprinkle,extended release 24hr 28 mg PO DAILY 02/01/24 [History Confirmed 02/01/24] memantine 7 mg capsule sprinkle,extended release 24hr 7 mg PO DAILY 02/01/24 [History Confirmed 02/01/24] PFSH Medical History Debility Frequent falls HTN (hypertension) Hypertension Lung nodule seen on imaging study Pulmonary infiltrates on CXR Rhabdomyolysis Sacral fracture, closed Thrombocytopenia Surgical History History of appendectomy History of splenectomy Family History Other Dementia Social History household members: none Smoking Status: Former smoker alcohol intake: never substance use type: does not use HPI HPI Chief Complaint: Est Care Details: Interim History: Anastacio returns for follow-up visit. He has a history of hypertension. He is accompanied by his son. Around December 2022, the patient was noted to exhibit some confusion. He was living at home at that time. His memory difficulty worsened over time. He was noted to have some difficulty managing his phone. He had a tendency to forget and repeat conversations. He began having multiple falls. He sustained sacral and a lumbar compression fracture. He was hospitalized and exhibited sundowning. Due to his overall medical and cognitive decline, he spent some time in an inpatient rehabilitation unit and subsequently was transferred to a senior living facility where he now resides. He continues to experience mild gait imbalance. He ambulates independently. He has received physical therapy and this was of benefit. He has had some urinary incontinence. He continues to exhibit memory difficulty. Donepezil was initiated in September 2023. No change in his memory has been noted since initiation of donepezil. He denied having numbness, weakness, vision change, headache, hearing loss or dizziness. He has mild neck pain. He has persistent low back pain since his lumbar and sacral fractures. He has received lumbar injections and these have been of benefit. He denied having pain in the lower extremities. Prior to his hospitalization he was driving without noted difficulty. Mini-Mental status exam was 21/30 in September 2023 (prior to initiation of donepezil). Prior laboratory studies revealed an elevated TSH. A subsequent TSH and free T4 were normal. Physical Exam: General: Well-developed, well-nourished male in no acute distress. Neuro: The patient is awake; he is bradyphrenic; speech is fluent; Mini-Mental status exam score is 24/30; gait is intermittently slightly unsteady; he is able to ambulate independently Neck: No bruits Heart: Regular rhythm and rate Supplemental Info CMP (04/18/2023): BUN 20 (high), BUN/creatinine (more content not included)... Normal [facility] CBC W Auto Differential pane l (Bld)on 12-25-2023 Basophils (Bld) [#/Vol] <0.11 k/uL [facility] Basophils/100 WBC (Bld) 0.2 % C [facility] Differential cell count method Nom (Bld) Auto [facility] Eosinophils (Bld) [#/Vol] <0.46 k/uL [facility] Eosinophils/100 WBC (Bld) 0.1 % [facility] Erythrocyte distribution width (RBC) [Ratio] 15.4 % High 11.5 - 15.0 % [facility] Hematocrit (Bld) [Volume fraction] 37.4 % Low 39.0 - 51.0 % [facility] Hemoglobin (Bld) [Mass/Vol] 12.3 g/dL Low 13.0 - 17.0 g/dL [facility] Immature granulocytes (Bld) [#/Vol] <0.10 k/uL [facility] Immature granulocytes/100 WBC (Bld) 0.2 % [facility] Lymphocytes (Bld) [#/Vol] 1.09 10*3/uL 1.00 - 4.00 k/uL [facility] Lymphocytes/100 WBC (Bld) 11.2 % [facility] MCH (RBC) [Entitic mass] 33.5 pg 26. 0 - 34.0 pg [facility] MCHC (RBC) [Mass/Vol] 32.9 g/dL 30.5 - 36.0 g/dL [facility] MCV (RBC) [Entitic vol] 101.9 fL High 80.0 - 100.0 fL [facility] Monocytes (Bld) [#/Vol] 1.47 10*3/uL High <0.87 k/uL [facility] Monocytes/100 WBC (Bld) 15.0 % C [facility] Neutrophils (Bld) [#/Vol] 7.16 10*3/uL 1.45 - 7.50 k/uL [facility] Neutrophils/100 WBC (Bld) 73.3 % [facility] Nucleated RBC (Bld) [#/Vol] <0.01 k/uL [facility] Nucleated RBC/100 WBC (Bld) [Ratio] 0.0 /100 WBC [facility] Platelet mean volume (Bld) [Entitic vol] 11.9 fL 9.0 - 12.7 fL [facility] Platelets (Bld) [#/Vol] 192 10*3/uL 150 - 400 k/uL [facility] RBC (Bld) [#/Vol] 3.67 10*6/uL Low 4.20 - 6.00 m/uL [facility] WBC (Bld) [#/Vol] 9.77 10*3/uL 3.70 - 11.00 k/uL [facility] Comprehensive metabolic 2000 panelon 12-25-2023 Albumin [Mass/Vol] 5.0 g/dL High 3.9 - 4.9 g/dL [facility] ALP [Catalytic activity/Vol] 54 U/L 38 - 113 U/L [facility] ALT [Catalytic activity/Vol] 11 U/L 10 - 54 U/L [facility] Anion gap [Moles/Vol] 12 mmol/L 9 - 18 mmol/L [facility] AST [Catalytic activity/Vol] 21 U/L 14 - 40 U/L [facility] Bilirubin [Mass/Vol] 0.7 mg/dL 0.2 - 1 .3 mg/dL [facility] Calcium [Mass/Vol] 10.0 mg/dL 8.5 - 10. 2 mg/dL [facility] Chloride [Moles/Vol] 101 mmol/L 97 - 10 5 mmol/L [facility] CO2 [Moles/Vol] 28 mmol/L 22 - 30 mmol/L [facility] Creatinine [Mass/Vol] 1.25 mg/dL High 0.73 - 1.22 mg/dL [facility] Estimated Glomerular Filtration Rate 57 mL/min/1.73m Low >=60 mL/min/1.7 3m [facility] Glucose [Mass/Vol] 73 mg/dL Low 74 - 99 mg/dL [facility] Potassium [Moles/Vol] 3.9 mmol/L 3.7 - 5.1 mmol/L [facility] Protein [Mass/Vol] 7.8 g/dL 6.3 - 8.0 g/dL [facility] Sodium [Moles/Vol] 141 mmol/L 136 - 144 mmol/L [facility] Urea nitrogen [Mass/Vol] 29 mg/dL High 9 - 24 mg/dL [facility] LIPID PANEL, NONFASTINGon Cholesterol [Mass/Vol] 239 mg/dL High <200 mg/dL [facility] HDL Cholesterol, Nonfasting 116 mg/dL >39 mg/dL [facility] LDL Cholesterol, Nonfasting 105 mg/dL High <100 mg/dL [facility] LDL/HDL Ratio, Nonfasting 0.91 mg/dL <2.54 mg/dL [facility] Non HDL Cholesterol, Nonfasting 123 mg/dL <130 mg/dL [facility] Total Chol/HDL Ratio, Nonfasting 2.06 mg/dL <5.10 mg/dL [facility] Triglycerides, Nonfasting 89 mg/dL <150 mg/dL [facility] VLDL Cholesterol, Nonfasting 18 mg/dL <30 mg/dL [facility] Absolute lymphocyte countOrd ered By: Won Santacruz on 10-02-2023 Lymphocytes Auto (Unsp spec) [#/Vol] 1.12 10*3/uL 0.83-4.51 [facility] Basophil percentageOrdered B y: Won Galvano on 10-02-2023 Basophils/100 WBC (Bld) 0.3 % 0-1 [facility] Chloride [Moles/Vol] 108 mmol/L 98-107 [facility] Eosinophils/100 WBC (Bld) 0.3 % 0-5 [facility] Glucose [Mass/Vol] 119 mg/dL 74-106 [facility] Comment on above: Fasting Glucose resu lt from 100 to 125 mg/dL suggests IMPAIRED HOMEOSTASIS per A.D.A. criteria. Neutrophils (Bld) [#/Vol] 12.8 10*3/uL 2.0-7.7 [facility] Neutrophils/100 WBC (Bld) 82.7 % 47-70 [facility] Potassium [Moles/Vol] 4.5 mmol/L 3.5-5.1 [facility] Sodium [Moles/Vol] 141 mmol/L 136-145 [facility] WBC (Bld) [#/Vol] 15.5 10*3/uL 4.4-11.0 [facility] Blood erythrocytes count (nu mber/volume)Ordered By: Won Santacruz on 10-02-2023 RBC (Bld) [#/Vol] 3.61 10*6/uL 4.6-6.2 [facility] Blood hemoglobin measurement (mass/volume)Ordered By: Won Santacruz on 10-02-2023 Hemoglobin (Bld) [Mass/Vol] 11.6 g/dL 13.0-16.5 [facility] Blood lymphocytes/100 leukoc ytesOrdered By: Wonbrant Santacruz on 10-02-2023 Lymphocytes/100 WBC (Bld) 7.2 % 19-41 [facility] Blood monocytes/100 leukocyt esOrdered By: Wonbrant Santacruz on 10-02-2023 Monocytes/100 WBC (Bld) 9.2 % 0-10 [facility] Blood platelet mean volumeOr dered By: Won Santacruz on 10-02-2023 Platelet mean volume (Bld) [Entitic vol] 12.1 fL 6.2-12.0 [facility] Determination of erythrocyte mean corpuscular volume (MCV)Ordered By: Won Santacruz on 10-02-2023 MCV (RBC) [Entitic vol] 99.4 fL 80-94 [facility] Hematocrit Auto (Bld) [Volum e fraction]Ordered By: Wonbrant Santacruz on 10-02-2023 Hematocrit (Bld) [Volume fraction] 35.9 % 40-54 [facility] Laboratory - Chemistry and C hemistry - challengeOrdered By: Wonbrant Santacruz on 10-02-2023 CO2 [Moles/Vol] 28.0 mmol/L 21.0-32.0 [facility] Urea nitrogen/Creatinine [Mass ratio] 22.8 mg/mg 10-20 [facility] Laboratory - Hematology and Cell countsOrdered By: Wonbrant Santacruz on 10-02-2023 Erythrocyte distribution width (RBC) [Entitic vol] 62.7 fL 35.1-43.9 [facility] Erythrocyte distribution width (RBC) [Ratio] 17.0 % 11.6-14.6 [facility] Immature granulocytes/100 WBC (Bld) 0.300 % 0.0-0.9 [facility] Comment on above: IG% - Immature Granu locytes (promyelocytes, myelocytes and metamyelocytes) > 1% indicates that a LEFT SHIFT is Present. MCH (RBC) [Entitic mass] 32.1 pg 27.0-32.0 [facility] Nucleated RBC/100 WBC (Bld) [Ratio] 0 % 0-5 [facility] MCHC Auto (RBC) [Mass/Vol]Or dered By: Won Santacruz on 10-02-2023 MCHC (RBC) [Mass/Vol] 32.3 g/dL 32-36 [facility] No Panel InformationOrdered By: Wonbrant Santacruz on 10-02-2023 Estimated Creatinine Clearance Calc 31.95 ml/min [facility] Estimated GFR (MDRD) Amer 69 mL/min >60 [facility] Comment on above: GFR Calc Estimated GFR (MDRD) Non-Af Amer 57 mL/min >60 [facility] Comment on above: Non- GFR Calc Platelets bldOrdered By: Won Santacruz on 10-02-2023 Platelets (Bld) [#/Vol] 240 10*3/uL 150-450 [facility] Serum or plasma calcium lyn urement (mass/volume)Ordered By: Won Santacruz on 10-02-2023 Calcium [Mass/Vol] 9.7 mg/dL 8.5-10.1 [facility] Serum or plasma creatinine m easurement (mass/volume)Ordered By: Won Santacruz on 10-02-2023 Creatinine [Mass/Vol] 1.27 mg/dL 0.70-1.30 [facility] Comment on above: The validity of the calculated GFR & GFRAA in patients over 70 years has not been determined. Clinical correlation is essential. Serum or plasma urea nitroge n measurement (mass/volume)Ordered By: Won Santacruz on 10-02-2023 Urea nitrogen [Mass/Vol] 29 mg/dL 7-18 [facility] Thin prep Papanicolaou smear with manual screeningOrdered By: Won Santacruz on 10-02-2023 Thin prep Papanicolaou smear with manual screening 5 5-15 [facility] XR Foot - bilateral AP and L ateral and obliqueon 06-23-2023 IMPRESSION: No acute osseous abnormality Ski Technician: [facility] Transcribe Date/Time: Jun 23 2023 11:24A Dictated by : JILLIAN JULES MD This examination was interpreted and the report reviewed and electronically signed by: JILLIAN JULES MD on Jun 23 2023 11:27AM [facility] DIVISION OF RADIOLOGY * * *Final Report* * * DATE OF EXAM: Jun 18 2023 2:39PM WOX [id number] - XR FOOT 3V AP/LAT/OBL YOCASTA / PROCEDURE REASON: multiple diagnoses * * * * Physician Interpretation * * * * EXAMINATION: XR FOOT 3V AP/LAT/OBL YOCASTA CLINICAL HISTORY: Bilateral foot pain Technique: XR FOOT 3V AP/LAT/OBL YOCASTA -- BILATERAL with 3 each views on 5 images Comparison: None RESULT: Right foot: No acute fracture or dislocation. Mild narrowing of multiple interphalangeal joints. Mild narrowing at the left first metatarsophalangeal joint. No periarticular erosions. Vascular calcifications are noted. Left foot: No acute fracture or dislocation. Mild narrowing of multiple interphalangeal joints. Mild narrowing of the left first metatarsophalangeal joint. No periarticular erosions. Vascular calcifications are noted. DIVISION OF RADIOLOGY Provider, Yoli Lockhart - 06/23/2023 * * *Final Report* * * DATE OF EXAM: Jun 18 2023 2:39PM WOX [id number] - XR FOOT 3V AP/LAT/OBL YOCASTA / PROCEDURE REASON: multiple diagnoses * * * * Physician Interpretation * * * * EXAMINATION: XR FOOT 3V AP/LAT/OBL YOCASTA CLINICAL HISTORY: Bilateral foot pain Technique: XR FOOT 3V AP/LAT/OBL YOCASTA -- BILATERAL with 3 each views on 5 images Comparison: None RESULT: Right foot: No acute fracture or dislocation. Mild narrowing of multiple interphalangeal joints. Mild narrowing at the left first metatarsophalangeal joint. No periarticular erosions. Vascular calcifications are noted. Left foot: No acute fracture or dislocation. Mild narrowing of multiple interphalangeal joints. Mild narrowing of the left first metatarsophalangeal joint. No periarticular erosions. Vascular calcifications are noted. IMPRESSION IMPRESSION: No acute osseous abnormality Ski Technician: [facility] Transcribe Date/Time: Jun 23 2023 11:24A Dictated by : JILLIAN JULES MD This examination was interpreted and the report reviewed and electronically signed by: JILLIAN JULES MD on Jun 23 2023 11:27AM EST [facility] XR Foot - bilateral AP and L ateral and obliqueOrdered By: [facility] Provider on 06-23-2023 [facility] Comprehensive metabolic 2000 panelon 06-19-2023 Albumin [Mass/Vol] 4.4 g/dL 3.9 - 4.9 g/dL [facility] ALP [Catalytic activity/Vol] 91 U/L 38 - 113 U/L [facility] ALT [Catalytic activity/Vol] 12 U/L 10 - 54 U/L [facility] Anion gap [Moles/Vol] 11 mmol/L 9 - 18 mmol/L [facility] AST [Catalytic activity/Vol] 17 U/L 14 - 40 U/L [facility] Bilirubin [Mass/Vol] 0.4 mg/dL 0.2 - 1 .3 mg/dL [facility] Calcium [Mass/Vol] 9.7 mg/dL 8.5 - 10. 2 mg/dL [facility] Chloride [Moles/Vol] 104 mmol/L 97 - 10 5 mmol/L [facility] CO2 [Moles/Vol] 26 mmol/L 22 - 30 mmol/L [facility] Creatinine [Mass/Vol] 0.90 mg/dL 0.73 - 1.22 mg/dL [facility] Estimated Glomerular Filtration Rate 84 mL/min/1.73m >=60 mL/min/1.7 3m [facility] Glucose [Mass/Vol] 85 mg/dL 74 - 99 mg/dL [facility] Potassium [Moles/Vol] 4.2 mmol/L 3.7 - 5.1 mmol/L [facility] Protein [Mass/Vol] 7.4 g/dL 6.3 - 8.0 g/dL [facility] Sodium [Moles/Vol] 141 mmol/L 136 - 144 mmol/L [facility] Urea nitrogen [Mass/Vol] 14 mg/dL 9 - 24 mg/dL [facility] TSH BLDon 06-19-2023 TSH Qn 2.150 m[IU]/L 0.270 - 4.200 mIU/L [facility] CBC W Auto Differential pane l (Bld)on 06-18-2023 Basophils (Bld) [#/Vol] 0.04 10*3/uL <0.11 k/uL [facility] Basophils/100 WBC (Bld) 0.5 % [facility] Differential cell count method Nom (Bld) Auto [facility] Eosinophils (Bld) [#/Vol] 0.17 10*3/uL <0.46 k/uL [facility] Eosinophils/100 WBC (Bld) 2.1 % [facility] Erythrocyte distribution width (RBC) [Ratio] 15.8 % High 11.5 - 15.0 % [facility] Hematocrit (Bld) [Volume fraction] 35.1 % Low 39.0 - 51.0 % [facility] Hemoglobin (Bld) [Mass/Vol] 11.3 g/dL Low 13.0 - 17.0 g/dL [facility] Immature granulocytes (Bld) [#/Vol] <0.10 k/uL [facility] Immature granulocytes/100 WBC (Bld) 0.2 % [facility] Lymphocytes (Bld) [#/Vol] 1.49 10*3/uL 1.00 - 4.00 k/uL [facility] Lymphocytes/100 WBC (Bld) 18.1 % [facility] MCH (RBC) [Entitic mass] 33.7 pg 26. 0 - 34.0 pg [facility] MCHC (RBC) [Mass/Vol] 32.2 g/dL 30.5 - 36.0 g/dL [facility] MCV (RBC) [Entitic vol] 104.8 fL High 80.0 - 100.0 fL [facility] Monocytes (Bld) [#/Vol] 1.11 10*3/uL High <0.87 k/uL [facility] Monocytes/100 WBC (Bld) 13.5 % C [facility] Neutrophils (Bld) [#/Vol] 5.41 10*3/uL 1.45 - 7.50 k/uL [facility] Neutrophils/100 WBC (Bld) 65.6 % [facility] Nucleated RBC (Bld) [#/Vol] <0.01 k/uL [facility] Nucleated RBC/100 WBC (Bld) [Ratio] 0.0 /100 WBC [facility] Platelet mean volume (Bld) [Entitic vol] 11.4 fL 9.0 - 12.7 fL [facility] Platelets (Bld) [#/Vol] 277 10*3/uL 150 - 400 k/uL [facility] RBC (Bld) [#/Vol] 3.35 10*6/uL Low 4.20 - 6.00 m/uL [facility] WBC (Bld) [#/Vol] 8.24 10*3/uL 3.70 - 11.00 k/uL [facility] XR Foot - bilateral AP and L ateral and obliqueon 06-18-2023 Radiology Study observation (narrative) [facility] Absolute lymphocyte countOrd ered By: Brisa Humphreys on 05-30-2023 Lymphocytes Auto (Unsp spec) [#/Vol] 1.81 10*3/uL 0.83-4.51 [facility] Basophil percentageOrdered B y: Brisa Humphreys on 05-30-2023 Basophils/100 WBC (Bld) 0.5 % 0-1 [facility] Chloride [Moles/Vol] 112 mmol/L 98-107 [facility] Eosinophils/100 WBC (Bld) 1.9 % 0-5 [facility] Glucose [Mass/Vol] 78 mg/dL 74-106 [facility] Neutrophils (Bld) [#/Vol] 5.4 10*3/uL 2.0-7.7 [facility] Neutrophils/100 WBC (Bld) 61.0 % 47-70 [facility] Potassium [Moles/Vol] 3.9 mmol/L 3.5-5.1 [facility] Sodium [Moles/Vol] 144 mmol/L 136-145 [facility] WBC (Bld) [#/Vol] 8.8 10*3/uL 4.4-11.0 [facility] Blood erythrocytes count (nu mber/volume)Ordered By: Brisa Humphreys on 05-30-2023 RBC (Bld) [#/Vol] 2.75 10*6/uL 4.6-6.2 [facility] Blood hemoglobin measurement (mass/volume)Ordered By: Brisa Humphreys on 05-30-2023 Hemoglobin (Bld) [Mass/Vol] 9.4 g/dL 13.0-16.5 [facility] Blood lymphocytes/100 leukoc ytesOrdered By: Brisa Humphreys on 05-30-2023 Lymphocytes/100 WBC (Bld) 20.5 % 19-41 [facility] Blood monocytes/100 leukocyt esOrdered By: Brisa Humphreys on 05-30-2023 Monocytes/100 WBC (Bld) 15.3 % 0-10 [facility] Blood platelet adequacy dete ction by light microscopyOrdered By: Brisa Humphreys on 05-30-2023 Platelets LM Ql (Bld) ADEQUATE ADEQ [facility] Blood platelet mean volumeOr dered By: Brisa Humphreys on 05-30-2023 Platelet mean volume (Bld) [Entitic vol] 11.4 fL 6.2-12.0 [facility] Determination of erythrocyte mean corpuscular volume (MCV)Ordered By: Brisa Humphreys on 05-30-2023 MCV (RBC) [Entitic vol] 113.1 fL 80-94 [facility] Hematocrit Auto (Bld) [Volum e fraction]Ordered By: Brisa Humphreys on 05-30-2023 Hematocrit (Bld) [Volume fraction] 31.1 % 40-54 [facility] Hypochromatic red blood cell detectionOrdered By: Brisa Humphreys on 05-30-2023 Hypochromia Ql (Bld) RARE [facility] Laboratory - Chemistry and C hemistry - challengeOrdered By: Brisa Humphreys on 05-30-2023 CO2 [Moles/Vol] 27.0 mmol/L 21.0-32.0 [facility] Urea nitrogen/Creatinine [Mass ratio] 24.9 mg/mg 10-20 [facility] Laboratory - Hematology and Cell countsOrdered By: Brisa Humphreys on 05-30-2023 Anisocytosis Ql (Bld) 1+ [facility] Erythrocyte distribution width (RBC) [Entitic vol] 69.0 fL 35.1-43.9 [facility] Erythrocyte distribution width (RBC) [Ratio] 16.4 % 11.6-14.6 [facility] Immature granulocytes/100 WBC (Bld) 0.800 % 0.0-0.9 [facility] Comment on above: IG% - Immature Granu locytes (promyelocytes, myelocytes and metamyelocytes) > 1% indicates that a LEFT SHIFT is Present. MCH (RBC) [Entitic mass] 34.2 pg 27.0-32.0 [facility] Nucleated RBC/100 WBC (Bld) [Ratio] 0 % 0-5 [facility] MCHC Auto (RBC) [Mass/Vol]Or dered By: Brisa Humphreys on 05-30-2023 MCHC (RBC) [Mass/Vol] 30.2 g/dL 32-36 [facility] Macrocytes detectionOrdered By: Brisa Humphreys on 05-30-2023 Macrocytes Ql (Bld) 1+ [facility] No Panel InformationOrdered By: Brisa Humphreys on 05-30-2023 Estimated Creatinine Clearance Calc 39.90 ml/min [facility] Estimated GFR (MDRD) Amer 133 mL/min >60 [facility] Comment on above: GFR Calc Estimated GFR (MDRD) Non-Af Amer 110 mL/min >60 [facility] Comment on above: Non- GFR Calc Platelets bldOrdered By: Mindy Humphreys on 05-30-2023 Platelets (Bld) [#/Vol] 301 10*3/uL 150-450 [facility] Serum or plasma calcium lyn urement (mass/volume)Ordered By: Brisa Humphreys on 05-30-2023 Calcium [Mass/Vol] 8.7 mg/dL 8.5-10.1 [facility] Serum or plasma creatinine m easurement (mass/volume)Ordered By: Brisa Humphreys on 05-30-2023 Creatinine [Mass/Vol] 0.72 mg/dL 0.70-1.30 [facility] Comment on above: The validity of the calculated GFR & GFRAA in patients over 70 years has not been determined. Clinical correlation is essential. Serum or plasma urea nitroge n measurement (mass/volume)Ordered By: Brisa Humphreys on 05-30-2023 Urea nitrogen [Mass/Vol] 18 mg/dL 7-18 [facility] Thin prep Papanicolaou smear with manual screeningOrdered By: Brisa Humphreys on 05-30-2023 Thin prep Papanicolaou smear with manual screening 5 5-15 [facility] Basophil percentageOrdered B y: Marcelo Edge on 05-22-2023 Basophil percentage 0 SEEN /hpf 0-5 [facility] Bilirubin Test strip Ql (U)O rdered By: Marcelo Edge on 05-22-2023 Bilirubin Ql (U) Negative Negative [facility] Culture, urineOrdered By: Abner Edge on 05-22-2023 Bacteria identified Cx Nom (U) Culture exhibits no growth. [facility] Bacteria identified Cx Nom (U) Culture exhibits no growth. [facility] Ketones Test strip Ql (U)Ord ered By: Marcelo Edge on 05-22-2023 Ketones Ql (U) Negative Negative [facility] Laboratory - Chemistry and C hemistry - challengeOrdered By: Marcelo Edge on 05-22-2023 Natriuretic peptide B (Bld) [Mass/Vol] 83.8 pg/mL 0-100 [facility] Mucus LM Ql (Urine sed)Order ed By: Marcelo Edge on 05-22-2023 Mucus Ql (Urine sed) 0 SEEN /hpf [facility] Nitrite Test strip Ql (U)Ord ered By: Marcelo Edge on 05-22-2023 Nitrite Ql (U) Negative Negative [facility] Protein Test strip Ql (U)Ord ered By: Marcelo Edge on 05-22-2023 Protein Ql (U) Negative Negative [facility] Squamous epithelial cells de tection in urine sediment by light microscopyOrdered By: Marcelo Edge on 05-22-2023 Epithelial cells.squamous LM Ql (Urine sed) 0 SEEN /hpf 0-5 [facility] Urine blood detectionOrdered By: Marcelo Edge on 05-22-2023 RBC Ql (U) Negative Negative [facility] RBC Ql (U) 0 SEEN /hpf 0-5 [facility] Urine clarityOrdered By: Marcelo Edge on 05-22-2023 Clarity (U) Clear Clear [facility] Urine color determinationOrd ered By: Marcelo Edge on 05-22-2023 Color (U) Yellow Yellow [facility] Urine glucose detectionOrder ed By: Marcelo Edge on 05-22-2023 Glucose Ql (U) Normal mg/dl Normal [facility] Urine leukocyte esterase det ection by dipstickOrdered By: Marcelo Edge on 05-22-2023 Leukocyte esterase Test strip Ql (U) Negative Negative [facility] Urine pHOrdered By: Marcelo Edge on 05-22-2023 pH (U) 6.0 [pH] 5.0 - 8.0 [facility] Urine sediment bacteria coun t by microscopy (number/high power field)Ordered By: Marcelo Edge on 05-22-2023 Bacteria LM.HPF (Urine sed) [#/Area] 0 /[HPF] None Seen [facility] Urine specific gravity measu rementOrdered By: Marcelo Edge on 05-22-2023 Specific gravity (U) [Rel density] 1.015 1.002-1.03 0 [facility] Urobilinogen Auto test strip Ql (U)Ordered By: Marcelo Edge on 05-22-2023 Urobilinogen Ql (U) Normal mg/dl Normal [facility] Basophil percentageOrdered B y: Marcelo Edge on 05-12-2023 Basophil percentage 0-5 SEEN /hpf 0-5 [facility] Bilirubin Test strip Ql (U)O rdered By: Marcelo Edge on 05-12-2023 Bilirubin Ql (U) 3 mg/dL Negative [facility] Comment on above: COLOR OF URINE MAY A FFECT DIPSTICK RESULTS. Culture, urineOrdered By: Abner Edge on 05-12-2023 Bacteria identified Cx Nom (U) Negative [facility] Ketones Test strip Ql (U)Ord ered By: Marcelo Edge on 05-12-2023 Ketones Ql (U) Negative Negative [facility] Mucus LM Ql (Urine sed)Order ed By: Marcelo Edge on 05-12-2023 Mucus Ql (Urine sed) 0 SEEN /hpf [facility] Nitrite Test strip Ql (U)Ord ered By: Marcelo Edge on 05-12-2023 Nitrite Ql (U) Positive Negative [facility] Protein Test strip Ql (U)Ord ered By: Marcelo Edge on 05-12-2023 Protein Ql (U) Negative Negative [facility] Squamous epithelial cells de tection in urine sediment by light microscopyOrdered By: Marcelo Edge on 05-12-2023 Epithelial cells.squamous LM Ql (Urine sed) 0 SEEN /hpf 0-5 [facility] Urine blood detectionOrdered By: Marcelo Edge on 05-12-2023 RBC Ql (U) Negative Negative [facility] RBC Ql (U) 0 SEEN /hpf 0-5 [facility] Urine clarityOrdered By: Marcelo Edge on 05-12-2023 Clarity (U) Clear Clear [facility] Urine color determinationOrd ered By: Marcelo Edge on 05-12-2023 Color (U) Di Yellow [facility] Urine glucose detectionOrder ed By: Marcelo Edge on 05-12-2023 Glucose Ql (U) Normal mg/dl Normal [facility] Urine leukocyte esterase det ection by dipstickOrdered By: Marcelo Edge on 05-12-2023 Leukocyte esterase Test strip Ql (U) 25 /ul Negative [facility] Urine pHOrdered By: Marcelo Edge on 05-12-2023 pH (U) 6.0 [pH] 5.0 - 8.0 [facility] Urine sediment bacteria coun t by microscopy (number/high power field)Ordered By: Marcelo Edge on 05-12-2023 Bacteria LM.HPF (Urine sed) [#/Area] RARE /hpf None Seen [facility] Urine specific gravity measu rementOrdered By: Marcelo Edge on 05-12-2023 Specific gravity (U) [Rel density] 1.020 1.002-1.03 0 [facility] Urobilinogen Auto test strip Ql (U)Ordered By: Marcelo Edge on 05-12-2023 Urobilinogen Ql (U) 4 mg/dl Normal [facility] Absolute lymphocyte countOrd ered By: Marcelo Edge on 05-09-2023 Lymphocytes Auto (Unsp spec) [#/Vol] 1.56 10*3/uL 0.83-4.51 [facility] Basophil percentageOrdered B y: Marcelo Edge on 05-09-2023 Basophils/100 WBC (Bld) 0.4 % 0-1 [facility] Chloride [Moles/Vol] 109 mmol/L 98-107 [facility] Eosinophils/100 WBC (Bld) 1.9 % 0-5 [facility] Glucose [Mass/Vol] 86 mg/dL 74-106 [facility] Neutrophils (Bld) [#/Vol] 8.2 10*3/uL 2.0-7.7 [facility] Neutrophils/100 WBC (Bld) 72.3 % 47-70 [facility] Potassium [Moles/Vol] 4.5 mmol/L 3.5-5.1 [facility] Sodium [Moles/Vol] 144 mmol/L 136-145 [facility] WBC (Bld) [#/Vol] 11.3 10*3/uL 4.4-11.0 [facility] Blood erythrocytes count (nu mber/volume)Ordered By: Marcelo Edge on 05-09-2023 RBC (Bld) [#/Vol] 3.23 10*6/uL 4.6-6.2 [facility] Blood hemoglobin measurement (mass/volume)Ordered By: Marcelo Edge on 05-09-2023 Hemoglobin (Bld) [Mass/Vol] 10.8 g/dL 13.0-16.5 [facility] Blood lymphocytes/100 leukoc ytesOrdered By: Marcelo Edge on 05-09-2023 Lymphocytes/100 WBC (Bld) 13.8 % 19-41 [facility] Blood monocytes/100 leukocyt esOrdered By: Marcelo Edge on 05-09-2023 Monocytes/100 WBC (Bld) 11.1 % 0-10 [facility] Blood platelet mean volumeOr dered By: Marcelo Edge on 05-09-2023 Platelet mean volume (Bld) [Entitic vol] 10.1 fL 6.2-12.0 [facility] Determination of erythrocyte mean corpuscular volume (MCV)Ordered By: Marcelo Edge on 05-09-2023 MCV (RBC) [Entitic vol] 104.3 fL 80-94 [facility] Hematocrit Auto (Bld) [Volum e fraction]Ordered By: Marcelo Edge on 05-09-2023 Hematocrit (Bld) [Volume fraction] 33.7 % 40-54 [facility] Laboratory - Chemistry and C hemistry - challengeOrdered By: Marcelo Edge 05-09-2023 CO2 [Moles/Vol] 29.0 mmol/L 21.0-32.0 [facility] Urea nitrogen/Creatinine [Mass ratio] 39.9 mg/mg 10-20 [facility] Laboratory - Hematology and Cell countsOrdered By: Marcelo Edge 05-09-2023 Erythrocyte distribution width (RBC) [Entitic vol] 65.0 fL 35.1-43.9 [facility] Erythrocyte distribution width (RBC) [Ratio] 16.7 % 11.6-14.6 [facility] Immature granulocytes/100 WBC (Bld) 0.500 % 0.0-0.9 [facility] Comment on above: IG% - Immature Granu locytes (promyelocytes, myelocytes and metamyelocytes) > 1% indicates that a LEFT SHIFT is Present. MCH (RBC) [Entitic mass] 33.4 pg 27.0-32.0 [facility] Nucleated RBC/100 WBC (Bld) [Ratio] 0 % 0-5 [facility] MCHC Auto (RBC) [Mass/Vol]Or dered By: Marcelo Edge on 05-09-2023 MCHC (RBC) [Mass/Vol] 32.0 g/dL 32-36 [facility] No Panel InformationOrdered By: Marcelo Edge on 05-09-2023 Estimated Creatinine Clearance Calc 36.76 ml/min [facility] Estimated GFR (MDRD) Amer 123 mL/min >60 [facility] Comment on above: GFR Calc Estimated GFR (MDRD) Non-Af Amer 101 mL/min >60 [facility] Comment on above: Non- GFR Calc Platelets bldOrdered By: Marcelo Edge on 05-09-2023 Platelets (Bld) [#/Vol] 435 10*3/uL 150-450 [facility] Serum or plasma calcium lyn urement (mass/volume)Ordered By: Marcelo Edge on 05-09-2023 Calcium [Mass/Vol] 9.0 mg/dL 8.5-10.1 [facility] Serum or plasma creatinine m easurement (mass/volume)Ordered By: Marcelo Edge on 05-09-2023 Creatinine [Mass/Vol] 0.78 mg/dL 0.70-1.30 [facility] Comment on above: The validity of the calculated GFR & GFRAA in patients over 70 years has not been determined. Clinical correlation is essential. Serum or plasma urea nitroge n measurement (mass/volume)Ordered By: Marcelo Edge on 05-09-2023 Urea nitrogen [Mass/Vol] 31 mg/dL 7-18 [facility] Thin prep Papanicolaou smear with manual screeningOrdered By: Marcelo Edge on 05-09-2023 Thin prep Papanicolaou smear with manual screening 6 5-15 [facility] Review by pathologistOrdered By: Marcelo Edge on 05-02-2023 Pathologist review Dilip (Unsp spec) [Interp] Reviewed [facility] Comment on above: Previous reported re sult: Emperatriz smith Edited by: RGOOD on 05/04/23:1258Neutrophilic leukocytosis.Macrocytic anemia.Moderate Thrombocytosis.Clinical correlation suggested.Jesús Garcia D.O. 05/04/23 AMENDED REPORT 05/04/23 1258 PATH REV previously reported as: Emperatriz smith COVID-19 virus antigen assay Ordered By: Marcelo Edge on 04-28-2023 SARS-CoV-2 (COVID-19) Ag IA.rapid Ql (Resp) [facility] SARS-CoV-2 (COVID-19) Ag IA.rapid Ql (Resp) [facility] COVID-19 virus antigen assay Ordered By: Dr. Edge on 04-28-2023 SARS-CoV-2 (COVID-19) Ag IA.rapid Ql (Resp) [facility] Basophil percentageOrdered B y: Dr. Edge on 04-27-2023 Chloride [Moles/Vol] 109 mmol/L 98-107 [facility] Glucose [Mass/Vol] 111 mg/dL 74-106 [facility] Comment on above: Fasting Glucose resu lt from 100 to 125 mg/dL suggests IMPAIRED HOMEOSTASIS per A.D.A. criteria. Potassium [Moles/Vol] 4.0 mmol/L 3.5-5.1 [facility] Sodium [Moles/Vol] 140 mmol/L 136-145 [facility] Laboratory - Chemistry and C hemistry - challengeOrdered By: Dr. Edge on 04-27-2023 CO2 [Moles/Vol] 26.0 mmol/L 21.0-32.0 [facility] Urea nitrogen/Creatinine [Mass ratio] 38.6 mg/mg 10-20 [facility] No Panel InformationOrdered By: Dr. Edge on 04-27-2023 Estimated Creatinine Clearance Calc 43.86 ml/min [facility] Estimated GFR (MDRD) Amer 127 mL/min >60 [facility] Comment on above: GFR Calc Estimated GFR (MDRD) Non-Af Amer 105 mL/min >60 [facility] Comment on above: Non- GFR Calc Serum or plasma calcium lyn urement (mass/volume)Ordered By: Dr. Edge on 04-27-2023 Calcium [Mass/Vol] 8.4 mg/dL 8.5-10.1 [facility] Serum or plasma creatinine m easurement (mass/volume)Ordered By: Dr. Edge on 04-27-2023 Creatinine [Mass/Vol] 0.75 mg/dL 0.70-1.30 [facility] Comment on above: The validity of the calculated GFR & GFRAA in patients over 70 years has not been determined. Clinical correlation is essential. Serum or plasma urea nitroge n measurement (mass/volume)Ordered By: Dr. Edge on 04-27-2023 Urea nitrogen [Mass/Vol] 29 mg/dL 7-18 [facility] Thin prep Papanicolaou smear with manual screeningOrdered By: Dr. Edge on 04-27-2023 Thin prep Papanicolaou smear with manual screening 5 5-15 [facility] Absolute lymphocyte countOrd ered By: Dr. Edge on 04-26-2023 Lymphocytes Auto (Unsp spec) [#/Vol] 0.68 10*3/uL 0.83-4.51 [facility] Basophil percentageOrdered B y: Dr. Edge on 04-26-2023 Basophils/100 WBC (Bld) 0.1 % 0-1 [facility] Eosinophils/100 WBC (Bld) 0.0 % 0-5 [facility] Neutrophils (Bld) [#/Vol] 14.3 10*3/uL 2.0-7.7 [facility] Neutrophils/100 WBC (Bld) 87.3 % 47-70 [facility] WBC (Bld) [#/Vol] 16.4 10*3/uL 4.4-11.0 [facility] Blood erythrocytes count (nu mber/volume)Ordered By: Dr. Edge on 04-26-2023 RBC (Bld) [#/Vol] 3.12 10*6/uL 4.6-6.2 [facility] Blood hemoglobin measurement (mass/volume)Ordered By: Dr. Edge on 04-26-2023 Hemoglobin (Bld) [Mass/Vol] 10.7 g/dL 13.0-16.5 [facility] Blood lymphocytes/100 leukoc ytesOrdered By: Dr. Edge on 04-26-2023 Lymphocytes/100 WBC (Bld) 4.1 % 19-41 [facility] Blood monocytes/100 leukocyt esOrdered By: Dr. Edge on 04-26-2023 Monocytes/100 WBC (Bld) 7.7 % 0-10 [facility] Blood platelet mean volumeOr dered By: Dr. Edge on 04-26-2023 Platelet mean volume (Bld) [Entitic vol] 11.1 fL 6.2-12.0 [facility] Determination of erythrocyte mean corpuscular volume (MCV)Ordered By: Dr. Edge on 04-26-2023 MCV (RBC) [Entitic vol] 99.4 fL 80-94 [facility] Hematocrit Auto (Bld) [Volum e fraction]Ordered By: Dr. Edge on 04-26-2023 Hematocrit (Bld) [Volume fraction] 31.0 % 40-54 [facility] Laboratory - Hematology and Cell countsOrdered By: Dr. Edge on 04-26-2023 Erythrocyte distribution width (RBC) [Entitic vol] 59.8 fL 35.1-43.9 [facility] Erythrocyte distribution width (RBC) [Ratio] 16.6 % 11.6-14.6 [facility] Immature granulocytes/100 WBC (Bld) 0.800 % 0.0-0.9 [facility] Comment on above: IG% - Immature Granu locytes (promyelocytes, myelocytes and metamyelocytes) > 1% indicates that a LEFT SHIFT is Present. MCH (RBC) [Entitic mass] 34.3 pg 27.0-32.0 [facility] Nucleated RBC/100 WBC (Bld) [Ratio] 0 % 0-5 [facility] MCHC Auto (RBC) [Mass/Vol]Or dered By: Dr. Edge on 04-26-2023 MCHC (RBC) [Mass/Vol] 34.5 g/dL 32-36 [facility] Platelets bldOrdered By: Dr. Edge on 04-26-2023 Platelets (Bld) [#/Vol] 296 10*3/uL 150-450 [facility] Blood manual differential co mment interpretation (narrative result)Ordered By: Dr. Edge on 04-25-2023 Manual differential comment Dilip (Bld) [Interp] SCANNED [facility] 24 hour urine albumin/total protein ratio by electrophoresis (mass fraction)Ordered By: Dr. Sawyer on 04-24-2023 Albumin Elph (24H U) [Mass fraction] 17.9 % . [facility] 24 hour urine alpha 1 globul in/total protein ratio by electrophoresis (mass fraction)Ordered By: Dr. Sawyer on 04-24-2023 Alpha 1 globulin Elph (24H U) [Mass fraction] 4.8 % . [facility] 24 hour urine alpha 2 globul in/total protein ratio by electrophoresis (mass fraction)Ordered By: Dr. Sawyer on 04-24-2023 Alpha 2 globulin Elph (24H U) [Mass fraction] 21.4 % . [facility] 24 hour urine protein measur ement (mass/time)Ordered By: Dr. Sawyer on 04-24-2023 Protein (24H U) [Mass/Time] 8 mg/24 hr 30-150 [facility] 24 hour urine protein monocl onal measurement by electrophoresis (mass/time)Ordered By: Dr. Sawyer on 04-24-2023 Protein.monoclonal Elph (24H U) [Mass/Time] TNP [facility] Comment on above: Test not performed Absolute lymphocyte countOrd ered By: Dr. Sawyer on 04-24-2023 Lymphocytes Auto (Unsp spec) [#/Vol] 0.36 10*3/uL 0.83-4.51 [facility] Basophil percentageOrdered B y: Dr. Sawyer on 04-24-2023 Basophils/100 WBC (Bld) 0.1 % 0-1 [facility] Chloride [Moles/Vol] 105 mmol/L 98-107 [facility] Eosinophils/100 WBC (Bld) 0.0 % 0-5 [facility] Glucose [Mass/Vol] 150 mg/dL 74-106 [facility] Comment on above: Fasting Glucose resu lt greater than or equal to 126 mg/dL suggests DIABETES MELLITUS per A.D.A. criteria. Neutrophils (Bld) [#/Vol] 8.2 10*3/uL 2.0-7.7 [facility] Neutrophils/100 WBC (Bld) 90.1 % 47-70 [facility] Potassium [Moles/Vol] 3.9 mmol/L 3.5-5.1 [facility] Sodium [Moles/Vol] 138 mmol/L 136-145 [facility] WBC (Bld) [#/Vol] 9.1 10*3/uL 4.4-11.0 [facility] Blood erythrocytes count (nu mber/volume)Ordered By: Dr. Sawyer on 04-24-2023 RBC (Bld) [#/Vol] 3.07 10*6/uL 4.6-6.2 [facility] Blood hemoglobin measurement (mass/volume)Ordered By: Dr. Sawyer on 04-24-2023 Hemoglobin (Bld) [Mass/Vol] 10.3 g/dL 13.0-16.5 [facility] Blood lymphocytes/100 leukoc ytesOrdered By: Dr. Sawyer on 04-24-2023 Lymphocytes/100 WBC (Bld) 4.0 % 19-41 [facility] Blood monocytes/100 leukocyt esOrdered By: Dr. Swayer on 04-24-2023 Monocytes/100 WBC (Bld) 5.1 % 0-10 [facility] Blood platelet adequacy dete ction by light microscopyOrdered By: Dr. Sawyer on 04-24-2023 Platelets LM Ql (Bld) ADEQUATE ADEQ [facility] Blood platelet mean volumeOr dered By: Dr. Sawyer on 04-24-2023 Platelet mean volume (Bld) [Entitic vol] 11.6 fL 6.2-12.0 [facility] COVID-19 virus antigen assay Ordered By: Jena Sawyer on 04-24-2023 SARS-CoV-2 (COVID-19) Ag IA.rapid Ql (Resp) [facility] COVID-19 virus antigen assay Ordered By: Dr. Sawyer on 04-24-2023 SARS-CoV-2 (COVID-19) Ag IA.rapid Ql (Resp) [facility] Determination of erythrocyte mean corpuscular volume (MCV)Ordered By: Dr. Sawyer on 04-24-2023 MCV (RBC) [Entitic vol] 99.0 fL 80-94 [facility] Hematocrit Auto (Bld) [Volum e fraction]Ordered By: Dr. Sawyer on 04-24-2023 Hematocrit (Bld) [Volume fraction] 30.4 % 40-54 [facility] Laboratory - Chemistry and C hemistry - challengeOrdered By: Dr. Sawyer on 04-24-2023 CO2 [Moles/Vol] 26.0 mmol/L 21.0-32.0 [facility] Urea nitrogen/Creatinine [Mass ratio] 20.4 mg/mg 10-20 [facility] Laboratory - Hematology and Cell countsOrdered By: Dr. Sawyer on 04-24-2023 Erythrocyte distribution width (RBC) [Entitic vol] 58.0 fL 35.1-43.9 [facility] Erythrocyte distribution width (RBC) [Ratio] 16.0 % 11.6-14.6 [facility] Immature granulocytes/100 WBC (Bld) 0.700 % 0.0-0.9 [facility] Comment on above: IG% - Immature Granu locytes (promyelocytes, myelocytes and metamyelocytes) > 1% indicates that a LEFT SHIFT is Present. MCH (RBC) [Entitic mass] 33.6 pg 27.0-32.0 [facility] Nucleated RBC/100 WBC (Bld) [Ratio] 0 % 0-5 [facility] MCHC Auto (RBC) [Mass/Vol]Or dered By: Dr. Sawyer on 04-24-2023 MCHC (RBC) [Mass/Vol] 33.9 g/dL 32-36 [facility] No Panel InformationOrdered By: Dr. Sawyer on 04-24-2023 Urine Immunofixation PEP Note Comment . [facility] Comment on above: Protein electrophore sis scan will follow via computer,mail, or bistro attendant delivery.Performed at: [facility] [place] [id number] Director: Daniele Dumas PhD, Phone: [phone] Estimated Creatinine Clearance Calc 35.35 ml/min [facility] Estimated GFR (MDRD) Amer 121 mL/min >60 [facility] Comment on above: GFR Calc Estimated GFR (MDRD) Non-Af Amer 100 mL/min >60 [facility] Comment on above: Non- GFR Calc Prostate Specific Antigen Comment . [facility] Comment on above: The percent free PSA is performed on a reflex basis onlywhen the total PSA is between 4.0 and 10.0 ng/mL. Prostate Specific Antigen Total 0.8 ng/mL 0.0-4.0 [facility] Comment on above: Juju ECLIA methodol ogy.According to the [place] [employer], Serum PSAshould decrease and remain at undetectable levels afterradical prostatectomy. The AUA defines biochemicalrecurrence as an initial PSA value 0.2 ng/mL or greaterfollowed by a subsequent confirmatory PSA value 0.2 ng/mLor greater. Values obtained with different assay methods orkits cannot be used interchangeably. Results cannot beinterpreted as absolute evidence of the presence or absenceof malignant disease. Platelets bldOrdered By: Dr. Sawyer on 04-24-2023 Platelets (Bld) [#/Vol] 233 10*3/uL 150-450 [facility] RBC morphologyOrdered By: Dr Stefanie Sawyer on 04-24-2023 RBC morphology finding Nom (Bld) NORM C+C NORMAL NORM C&C [facility] Serum or plasma calcium lyn urement (mass/volume)Ordered By: Dr. Sawyer on 04-24-2023 Calcium [Mass/Vol] 8.5 mg/dL 8.5-10.1 [facility] Serum or plasma carcinoembry onic antigen measurement (mass/volume)Ordered By: Dr. Sawyer on 04-24-2023 Carcinoembryonic Ag [Mass/Vol] 3.5 ng/mL 0.0-4.7 [facility] Comment on above: Nonsmokers <3.9 Smok ers <5.6[employer] Electrochemiluminescence Immunoassay(ECLIA)Values obtained with different assay methods or kitscannot be used interchangeably. Results cannot beinterpreted as absolute evidence of the presence orabsence of malignant disease.Performed at: [facility] [place] [id number] Director: Daniele Dumas PhD, Phone: [phone] Serum or plasma creatinine m easurement (mass/volume)Ordered By: Dr. Sawyer on 04-24-2023 Creatinine [Mass/Vol] 0.79 mg/dL 0.70-1.30 [facility] Comment on above: The validity of the calculated GFR & GFRAA in patients over 70 years has not been determined. Clinical correlation is essential. Serum or plasma urea nitroge n measurement (mass/volume)Ordered By: Dr. Sawyer on 04-24-2023 Urea nitrogen [Mass/Vol] 16 mg/dL 7-18 [facility] Thin prep Papanicolaou smear with manual screeningOrdered By: Dr. Sawyer on 04-24-2023 Thin prep Papanicolaou smear with manual screening Comment . [facility] Comment on above: No monoclonality det ected. Thin prep Papanicolaou smear with manual screening 7 5-15 [facility] Urine beta globulin measurem ent by electrophoresis (mass/volume)Ordered By: Dr. Sawyer on 04-24-2023 Beta globulin Elph (U) [Mass/Vol] 35.7 % . [facility] Urine gamma globulin measure ment by electrophoresis (mass/volume)Ordered By: Dr. Sawyer on 04-24-2023 Gamma globulin Elph (U) [Mass/Vol] 20.1 % . [facility] Urine monoclonal protein/tot al protein mass ratio by electrophoresisOrdered By: Dr. Sawyer on 04-24-2023 Protein.monoclonal Elph (U) [Mass fraction] Not Observed % Not Observed [facility] Urine protein measurement (m ass/volume)Ordered By: Dr. Sawyer on 04-24-2023 Protein (U) [Mass/Vol] 7.2 mg/dL Not Estab. [facility] Basophil percentageOrdered B y: Dr. Stout on 04-20-2023 Basophil percentage 1.8 mg/dL 2.5-4.9 [facility] Cholesterol [Mass/Vol] 139 mg/dL <200 [facility] Comment on above: <200 mg/dL Desirable 200-240 mg/dL Borderline >240 mg/dL High Risk Triglyceride [Mass/Vol] 47 mg/dL <199 [facility] Comment on above: The drugs N-Acetylcy steine and Metamizole may falsely depress this assay.Serum Triglycerides Reference Interval Normal <150 mg/dL Borderline high 150 - 199 mg/dL High 200 - 499 mg/dL Very High > or = 500 mg/dL INR in Blood by Coagulation assayOrdered By: Dr. Stout on 04-20-2023 INR Coag (Bld) [Relative time] 1.4 {INR} [facility] Laboratory - Chemistry and C hemistry - challengeOrdered By: Dr. Stout on 04-20-2023 CK [Catalytic activity/Vol] 703 U/L 39-308 [facility] Magnesium [Mass/Vol] 1.8 mg/dL 1.6-2.6 [facility] Laboratory - CoagulationOrde red By: Dr. Stout on 04-20-2023 PT Coag (PPP) [Time] 17.2 s 11.7-14.9 [facility] No Panel InformationOrdered By: Dr. Stout on 04-20-2023 Thyroid Stimulating Hormone (TSH) 7.61 uIU/mL 0.358-3.74 [facility] Serum or plasma cholesterol in HDL measurement (mass/volume)Ordered By: Dr. Stout on 04-20-2023 Cholesterol in HDL [Mass/Vol] 95 mg/dL >40 [facility] Comment on above: The drugs N-Acetylcy steine and Metamizole may falsely depress this assay. Reference Range HDL <40 mg/dL Low HDL Cholesterol HDL >or= 60 mg/dL High HDL Cholesterol Serum or plasma cholesterol in VLDL measurement (mass/volume)Ordered By: Dr. Stout on 04-20-2023 Cholesterol in VLDL [Mass/Vol] 9 mg/dL 5-40 [facility] Serum or plasma low density lipoprotein (LDL) cholesterol measurement (mass/volume)Ordered By: Dr. Stout on 04-20-2023 Cholesterol in LDL [Mass/Vol] 35 mg/dL 0-130 [facility] Blood manual differential co mment interpretation (narrative result)Ordered By: Dr. Marroquin on 04-19-2023 Manual differential comment Dilip (Bld) [Interp] SCANNED [facility] Hypochromatic red blood cell detectionOrdered By: Dr. Marroquin on 04-19-2023 Hypochromia Ql (Bld) 1+ [facility] No Panel InformationOrdered By: Dr. Marroquin on 04-19-2023 Acanthocytes RARE [facility] Review by pathologistOrdered By: Dr. Marroquin on 04-19-2023 Pathologist review Dilip (Unsp spec) [Interp] Reviewed [facility] Comment on above: Previous reported re sult: Emperatriz smith Edited by: RGOOD on 04/20/23:1331Neutrophilic leukocytosis.Macrocytic anemia.Mild Thrombocytopenia.Clinical correlation necessary.Lukas Hull M.D. 04/20/23 AMENDED REPORT 04/20/23 1331 PATH REV previously reported as: Emperatriz smith Absolute lymphocyte countOrd ered By: Dr. Kilgore on 04-18-2023 Lymphocytes Auto (Unsp spec) [#/Vol] 0.63 10*3/uL 0.83-4.51 [facility] Basophil percentageOrdered B y: Dr. Kilgore on 04-18-2023 Basophil percentage 0 SEEN /hpf 0-5 [facility] Basophils/100 WBC (Bld) 0.1 % 0-1 [facility] Bilirubin [Mass/Vol] 2.00 mg/dL 0.20-1.00 [facility] Comment on above: For patients on eltr ombopag therapy, use of [employer] [place] TBIL is not recommended. Chloride [Moles/Vol] 105 mmol/L 98-107 [facility] Eosinophils/100 WBC (Bld) 0.1 % 0-5 [facility] Glucose [Mass/Vol] 99 mg/dL 74-106 [facility] Neutrophils (Bld) [#/Vol] 11.3 10*3/uL 2.0-7.7 [facility] Neutrophils/100 WBC (Bld) 84.0 % 47-70 [facility] Potassium [Moles/Vol] 4.3 mmol/L 3.5-5.1 [facility] Comment on above: Moderate Hemolysis, Result may be falsely increased. Protein [Mass/Vol] 7.0 g/dL 6.4-8.2 [facility] Sodium [Moles/Vol] 140 mmol/L 136-145 [facility] WBC (Bld) [#/Vol] 13.5 10*3/uL 4.4-11.0 [facility] Bilirubin Test strip Ql (U)O rdered By: Dr. Kilgore on 04-18-2023 Bilirubin Ql (U) Negative Negative [facility] Blood erythrocytes count (nu mber/volume)Ordered By: Dr. Kilgore on 04-18-2023 RBC (Bld) [#/Vol] 3.13 10*6/uL 4.6-6.2 [facility] Blood hemoglobin measurement (mass/volume)Ordered By: Dr. Kilgore on 04-18-2023 Hemoglobin (Bld) [Mass/Vol] 10.6 g/dL 13.0-16.5 [facility] Blood lymphocytes/100 leukoc ytesOrdered By: Dr. Kilgore on 04-18-2023 Lymphocytes/100 WBC (Bld) 4.7 % 19-41 [facility] Blood monocytes/100 leukocyt esOrdered By: Dr. Kilgore on 04-18-2023 Monocytes/100 WBC (Bld) 10.8 % 0-10 [facility] Blood platelet mean volumeOr dered By: Dr. Kilgore on 06-03-2023 Platelet mean volume (Bld) [Entitic vol] 12.2 fL 6.2-12.0 [facility] Determination of erythrocyte mean corpuscular volume (MCV)Ordered By: Dr. Kilgore on 04-18-2023 MCV (RBC) [Entitic vol] 99.4 fL 80-94 [facility] Hematocrit Auto (Bld) [Volum e fraction]Ordered By: Dr. Kilgore on 04-18-2023 Hematocrit (Bld) [Volume fraction] 31.1 % 40-54 [facility] Ketones Test strip Ql (U)Ord ered By: Dr. Kilgore on 04-18-2023 Ketones Ql (U) 15 mg/dl Negative [facility] Laboratory - Chemistry and C hemistry - challengeOrdered By: Dr. Kilgore on 04-18-2023 ALP [Catalytic activity/Vol] 46 U/L 45-117 [facility] ALT [Catalytic activity/Vol] 50 U/L 16-61 [facility] CK [Catalytic activity/Vol] 2434 U/L 39-308 [facility] Comment on above: Moderate Hemolysis, Result may be falsely increased. CO2 [Moles/Vol] 27.0 mmol/L 21.0-32.0 [facility] Globulin (S) [Mass/Vol] 3.4 g/dL 2.2-4.2 [facility] Urea nitrogen/Creatinine [Mass ratio] 21.5 mg/mg 10-20 [facility] Laboratory - Hematology and Cell countsOrdered By: Dr. Kilgore on 04-18-2023 Erythrocyte distribution width (RBC) [Entitic vol] 56.8 fL 35.1-43.9 [facility] Erythrocyte distribution width (RBC) [Ratio] 15.7 % 11.6-14.6 [facility] Immature granulocytes/100 WBC (Bld) 0.300 % 0.0-0.9 [facility] Comment on above: IG% - Immature Granu locytes (promyelocytes, myelocytes and metamyelocytes) > 1% indicates that a LEFT SHIFT is Present. MCH (RBC) [Entitic mass] 33.9 pg 27.0-32.0 [facility] Nucleated RBC/100 WBC (Bld) [Ratio] 0 % 0-5 [facility] MCHC Auto (RBC) [Mass/Vol]Or dered By: Dr. Kilgore on 04-18-2023 MCHC (RBC) [Mass/Vol] 34.1 g/dL 32-36 [facility] Mucus LM Ql (Urine sed)Order ed By: Dr. Kilgore on 04-18-2023 Mucus Ql (Urine sed) 0 SEEN /hpf [facility] Nitrite Test strip Ql (U)Ord ered By: Dr. Kilgore on 04-18-2023 Nitrite Ql (U) Negative Negative [facility] No Panel InformationOrdered By: Dr. Kilgore on 04-18-2023 Estimated Creatinine Clearance Calc 44.91 ml/min [facility] Estimated GFR (MDRD) Amer 100 mL/min >60 [facility] Comment on above: GFR Calc Estimated GFR (MDRD) Non-Af Amer 82 mL/min >60 [facility] Comment on above: Non- GFR Calc Platelets bldOrdered By: Dr. Kilgore on 04-18-2023 Platelets (Bld) [#/Vol] 135 10*3/uL 150-450 [facility] Protein Test strip Ql (U)Ord ered By: Dr. Kilgore on 04-18-2023 Protein Ql (U) 15 mg/dl Negative [facility] Serum or plasma albumin lyn urement (mass/volume)Ordered By: Dr. Kilgore on 04-18-2023 Albumin [Mass/Vol] 3.6 g/dL 3.2-5.0 [facility] Serum or plasma albumin/glob ulin mass ratioOrdered By: Dr. Kilgore on 04-18-2023 Albumin/Globulin [Mass ratio] 1.1 {ratio} 0.9-2.4 [facility] Serum or plasma calcium lyn urement (mass/volume)Ordered By: Dr. Kilgore on 04-18-2023 Calcium [Mass/Vol] 9.1 mg/dL 8.5-10.1 [facility] Serum or plasma creatinine m easurement (mass/volume)Ordered By: Dr. Kilgore on 04-18-2023 Creatinine [Mass/Vol] 0.93 mg/dL 0.70-1.30 [facility] Comment on above: The validity of the calculated GFR & GFRAA in patients over 70 years has not been determined. Clinical correlation is essential. Serum or plasma urea nitroge n measurement (mass/volume)Ordered By: Dr. Kilgore on 04-18-2023 Urea nitrogen [Mass/Vol] 20 mg/dL 7-18 [facility] Squamous epithelial cells de tection in urine sediment by light microscopyOrdered By: Dr. Kilgore on 04-18-2023 Epithelial cells.squamous LM Ql (Urine sed) 0-5 SEEN /hpf 0-5 [facility] Thin prep Papanicolaou smear with manual screeningOrdered By: Dr. Kilgore on 04-18-2023 Thin prep Papanicolaou smear with manual screening 86 U/L 15-37 [facility] Comment on above: Moderate Hemolysis, Result may be falsely increased. Thin prep Papanicolaou smear with manual screening 8 5-15 [facility] Urine blood detectionOrdered By: Dr. Kilgore on 04-18-2023 RBC Ql (U) 150 /ul Negative [facility] RBC Ql (U) 0-5 SEEN /hpf 0-5 [facility] Urine clarityOrdered By: Dr. Kilgore on 04-18-2023 Clarity (U) Clear Clear [facility] Urine color determinationOrd ered By: Dr. Kilgore on 04-18-2023 Color (U) Yellow Yellow [facility] Urine glucose detectionOrder ed By: Dr. Kilgore on 04-18-2023 Glucose Ql (U) Normal mg/dl Normal [facility] Urine leukocyte esterase det ection by dipstickOrdered By: Dr. Kilgore on 04-18-2023 Leukocyte esterase Test strip Ql (U) Negative Negative [facility] Urine pHOrdered By: Dr. Mila wilks on 04-18-2023 pH (U) 5.0 [pH] 5.0 - 8.0 [facility] Urine sediment bacteria coun t by microscopy (number/high power field)Ordered By: Dr. Kilgore on 04-18-2023 Bacteria LM.HPF (Urine sed) [#/Area] 0 /[HPF] None Seen [facility] Urine specific gravity measu rementOrdered By: Dr. Kilgore on 04-18-2023 Specific gravity (U) [Rel density] 1.020 1.002-1.03 0 [facility] Urobilinogen Auto test strip Ql (U)Ordered By: Dr. Kilgore on 04-18-2023 Urobilinogen Ql (U) Normal mg/dl Normal [facility] No Panel Informationon 04-17 Radiology Study observation (narrative) [facility] XR Pelvis and Hip - left AP and Lateral frogon 04-17-2023 IMPRESSION: No acute osseous abnormality Ski Technician: [employer] Transcribe Date/Time: Apr 17 2023 10:06A Dictated by : JILLIAN JULES MD This examination was interpreted and the report reviewed and electronically signed by: JILLIAN JULES MD on Apr 17 2023 10:08AM [facility] DIVISION OF RADIOLOGY * * *Final Report* * * DATE OF EXAM: Apr 17 2023 9:42AM WOX 5351 - XR HIP 3V PELV+ AP/LAT LT / PROCEDURE REASON: multiple diagnoses * * * * Physician Interpretation * * * * EXAMINATION: XR HIP 3V PELV+ AP/LAT LT CLINICAL HISTORY: Left hip pain Technique: XR HIP 3V PELV+ AP/LAT LT -- with views on images Comparison: None RESULT: No acute fracture or dislocation. Joint spaces are maintained. Vascular calcifications are noted. DIVISION OF RADIOLOGY Provider, [facility] - 04/17/2023 * * *Final Report* * * DATE OF EXAM: Apr 17 2023 9:42AM WOX 5351 - XR HIP 3V PELV+ AP/LAT LT / PROCEDURE REASON: multiple diagnoses * * * * Physician Interpretation * * * * EXAMINATION: XR HIP 3V PELV+ AP/LAT LT CLINICAL HISTORY: Left hip pain Technique: XR HIP 3V PELV+ AP/LAT LT -- with views on images Comparison: None RESULT: No acute fracture or dislocation. Joint spaces are maintained. Vascular calcifications are noted. IMPRESSION IMPRESSION: No acute osseous abnormality Ski Technician: [employer] Transcribe Date/Time: Apr 17 2023 10:06A Dictated by : JILLIAN JULES MD This examination was interpreted and the report reviewed and electronically signed by: JILLIAN JULES MD on Apr 17 2023 10:08AM EST [facility] [place] XR Shoulder - left 3 Viewson 04-17-2023 IMPRESSION: No acute osseous abnormality. Ski Technician: NORMA Transcribe Date/Time: Apr 17 2023 10:08A Dictated by : JILLIAN JULES MD This examination was interpreted and the report reviewed and electronically signed by: JILLIAN JULES MD on Apr 17 2023 10:10AM [facility] DIVISION OF RADIOLOGY * * *Final Report* * * DATE OF EXAM: Apr 17 2023 9:42AM WOX 5252 - XR SHLDR >/=3V AP/OMID AP/OTHR LT / PROCEDURE REASON: multiple diagnoses * * * * Physician Interpretation * * * * EXAMINATION: XR SHLDR >/=3V AP/OMID AP/OTHR LT CLINICAL HISTORY: Left shoulder pain after fall Technique: XR SHLDR >/=3V AP/OMID AP/OTHR LT -- LEFT with 3 views on 3 images Comparison: None RESULT: No acute fracture or dislocation. Joint spaces are maintained. DIVISION OF RADIOLOGY Provider, [facility] - 04/17/2023 * * *Final Report* * * DATE OF EXAM: Apr 17 2023 9:42AM WOX 5252 - XR SHLDR >/=3V AP/OMID AP/OTHR LT / PROCEDURE REASON: multiple diagnoses * * * * Physician Interpretation * * * * EXAMINATION: XR SHLDR >/=3V AP/OMID AP/OTHR LT CLINICAL HISTORY: Left shoulder pain after fall Technique: XR SHLDR >/=3V AP/OMID AP/OTHR LT -- LEFT with 3 views on 3 images Comparison: None RESULT: No acute fracture or dislocation. Joint spaces are maintained. IMPRESSION IMPRESSION: No acute osseous abnormality. 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 Ski Technician: [employer] Transcribe Date/Time: Apr 17 2023 10:10A Dictated by : SHIMA PADILLA MD This examination was interpreted and the report reviewed and electronically signed by: SHIMA PADILLA MD on Apr 17 2023 10:13AM [facility] DIVISION OF RADIOLOGY * * *Final Report* * * DATE OF EXAM: Apr 17 2023 9:42AM WOX 5262 - XR THORACIC 2V AP/LAT / PROCEDURE REASON: multiple diagnoses * * * * Physician Interpretation * * * * EXAM TITLE: XR THORACIC 2V AP/LAT EXAM DATE/TIME: 04/17/2023 9:42 AM COMPARISON: None. CLINICAL INDICATION/HISTORY: Fall. TECHNIQUE: AP, swimmer's and lateral views of the thoracic spine are presented FINDINGS: No visible acute fractures or subluxations are noted. There is S-shaped deformity of the spine. Mild osteophyte formation seen. There is no paraspinal mass or bony destructive process. DIVISION OF RADIOLOGY Provider, [facility] - 04/17/2023 * * *Final Report* * * DATE OF EXAM: Apr 17 2023 9:42AM WOX 5262 - XR THORACIC 2V AP/LAT / PROCEDURE REASON: multiple diagnoses * * * * Physician Interpretation * * * * EXAM TITLE: XR THORACIC 2V AP/LAT EXAM DATE/TIME: 04/17/2023 9:42 AM COMPARISON: None. CLINICAL INDICATION/HISTORY: Fall. TECHNIQUE: AP, swimmer's and lateral views of the thoracic spine are presented FINDINGS: No visible acute fractures or subluxations are noted. There is S-shaped deformity of the spine. Mild osteophyte formation seen. There is no paraspinal mass or bony destructive process. 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 Ski Technician: NORMA Transcribe Date/Time: Apr 17 2023 10:10A Dictated by : SHIMA PADILLA MD This examination was interpreted and the report reviewed and electronically signed by: SHIMA PADILLA MD on Apr 17 2023 10:13AM EST [facility] STREP A MOLECULAR (POC)on Procedural Control Valid [facility] Strep A (POCT) Negative Negative [facility] Vital Signs Date Time Vital Sign Value Performing Clinician Facility 01-03-2025 09:49-0500 Body mass index (BMI) [Ratio] 16.02 kg/m2 Ines Chatterjee PA-C Work Phone: [facility] 01-03-2025 09:49-0500 Body temperature 97.59 [degF] Ines Chatterjee PA-C Work Phone: [facility] 01-03-2025 09:49-0500 Body weight 47.8 kg Ines Chatterjee PA-C Work Phone: [facility] 01-03-2025 09:49-0500 Diastolic blood pressure 80 mm[Hg] Ines Chatterjee PA-C Work Phone: [facility] 01-03-2025 09:49-0500 Heart rate 69 /min Ines Chatterjee PA-C Work Phone: [facility] 01-03-2025 09:49-0500 Respiratory rate 16 /min Ines MONROE-C Work Phone: [facility] 01-03-2025 09:49-0500 SaO2% (BldA) [Mass fraction] 96 % Ines Chatterjee PA-C Work Phone: [facility] 01-03-2025 09:49-0500 Systolic blood pressure 138 mm[Hg] Ines Chatterjee PA-C Work Phone: [facility] 11-28-2024 15:27-0500 Body height 172.7 cm Matt Michael MD Work Phone: [facility] 11-28-2024 15:27-0500 Body mass index (BMI) [Ratio] 17.03 kg/m2 Matt Michael MD Work Phone: [facility] 11-28-2024 15:27-0500 Body weight 50.8 kg Matt Michael MD Work Phone: [facility] 11-28-2024 15:27-0500 Respiratory rate 20 /min Matt Michael MD Work Phone: [facility] 03-11-2024 11:16-0400 Body mass index (BMI) [Ratio] 19.95 kg/m2 Piero Rubin MD Work Phone: [facility] 03-11-2024 11:16-0400 Body weight 51.71 kg Piero Rubin MD Work Phone: [facility] 03-11-2024 11:16-0400 Diastolic blood pressure 80 mm[Hg] Piero Rubin MD Work Phone: [facility] 03-11-2024 11:16-0400 Heart rate 68 /min Piero Rubin MD Work Phone: [facility] 03-11-2024 11:16-0400 Respiratory rate 16 /min Piero Rubin MD Work Phone: [facility] 03-11-2024 11:16-0400 Systolic blood pressure 140 mm[Hg] Piero Rubin MD Work Phone: [facility] 12-25-2023 10:06-0500 Body height 161 cm Piero Rubin MD Work Phone: [facility] 12-25-2023 10:06-0500 Body weight 48.99 kg Piero Rubin MD Work Phone: [facility] 12-25-2023 10:06-0500 Diastolic blood pressure 72 mm[Hg] Piero Rubin MD Work Phone: [facility] 12-25-2023 10:06-0500 Heart rate 69 /min Piero Rubin MD Work Phone: [facility] 12-25-2023 10:06-0500 Respiratory rate 16 /min Piero Rubin MD Work Phone: [facility] 12-25-2023 10:06-0500 SaO2% (BldA) [Mass fraction] 93 % Piero Rubin MD Work Phone: [facility] 12-25-2023 10:06-0500 Systolic blood pressure 118 mm[Hg] Piero Rubin MD Work Phone: [facility] 10-02-2023 18:47-0500 Diastolic blood pressure 66 mm[Hg] Dr. Piero Rubin Work Phone: 9(264)078-496052 [place] [address] 10-02-2023 18:47-0500 Heart rate 86 /min Dr. Piero Rubin Work Phone: 4(430)669-946252 [place] [address] 10-02-2023 18:47-0500 Respiratory rate 16 /min Dr. Piero Rubin Work Phone: 4(972)705-768052 [place] [address] 10-02-2023 18:47-0500 SaO2% (BldA) [Mass fraction] 95 % Dr. Piero Rubin Work Phone: 7(576)283-209352 [place] [address] 10-02-2023 18:47-0500 Systolic blood pressure 115 mm[Hg] Dr. Piero Rubin Work Phone: 5(032)274-954552 [place] [address] 10-02-2023 16:44-0500 Body temperature 98.3 [degF] Dr. Piero Rubin Work Phone: 4(528)550-473752 [place] [address] 10-02-2023 16:37-0500 Body height 172.[address] Piero Rubin Work Phone: 7(973)717-867352 [place] [address] 10-02-2023 16:37-0500 Body mass index (BMI) [Ratio] 17.4 kg/m2 Dr. Piero Rubin Work Phone: 8(123)919-199852 [place] [address] 10-02-2023 16:37-0500 Body weight 52.[address] Piero Rubin Work Phone: 0(783)317-549252 [place] [address] 10-01-2023 08:58-0500 Body mass index (BMI) [Ratio] 17.3 kg/m2 Dr. Piero Rubin Work Phone: 7(481)081-026752 [place] [address] 10-01-2023 08:58-0500 Body temperature 98 [degF] Dr. Piero Rubin Work Phone: 0(676)995-983552 [place] [address] 10-01-2023 08:58-0500 Body weight 51.[address] Piero Rubin Work Phone: 4(076)222-575452 [place] [address] 10-01-2023 08:58-0500 Diastolic blood pressure 80 mm[Hg] Dr. Piero Rubin Work Phone: 2(401)059-905303 [place] [address] 10-01-2023 08:58-0500 Heart rate 80 /min Dr. Piero Rubin Work Phone: 0(263)555-220552 [place] [address] 10-01-2023 08:58-0500 Respiratory rate 17 /min Dr. Piero Rubin Work Phone: 2(391)451-348552 [place] [address] 10-01-2023 08:58-0500 SaO2% (BldA) [Mass fraction] 97 % Dr. Piero Rubin Work Phone: 6(327)742-261752 [place] [address] 10-01-2023 08:58-0500 Systolic blood pressure 130 mm[Hg] Dr. Piero Rubin Work Phone: 0(266)008-203752 [place] [address] 06-18-2023 12:38-0400 Body weight 51.71 kg Piero Rubin MD Work Phone: [facility] 06-18-2023 12:38-0400 Diastolic blood pressure 76 mm[Hg] Piero Rubin MD Work Phone: 1(914)459-546218 [place] [address] 06-18-2023 12:38-0400 Heart rate 72 /min Piero Rubin MD Work Phone: [facility] 06-18-2023 12:38-0400 Respiratory rate 18 /min Piero Rubin MD Work Phone: [facility] 06-18-2023 12:38-0400 Systolic blood pressure 138 mm[Hg] Piero Rubin MD Work Phone: [facility] 06-04-2023 16:00-0400 Body temperature 98.2 [degF] Dr. Piero Rubin Work Phone: [facility] 06-04-2023 16:00-0400 Diastolic blood pressure 85 mm[Hg] Dr. Piero Rubin Work Phone: [facility] 06-04-2023 16:00-0400 Heart rate 72 /min Dr. Piero Rubin Work Phone: 3(367)485-312403 [place] [address] 06-04-2023 16:00-0400 Respiratory rate 14 /min Dr. Piero Rubin Work Phone: 4(611)353-275852 [place] [address] 06-04-2023 16:00-0400 SaO2% (BldA) [Mass fraction] 96 % Dr. Piero Rubin Work Phone: 6(460)750-051252 [place] [address] 06-04-2023 16:00-0400 Systolic blood pressure 163 mm[Hg] Dr. Piero Rubin Work Phone: 1(231)551-156652 [place] [address] 06-02-2023 09:29-0400 Body mass index (BMI) [Ratio] 17.4 kg/m2 Dr. Piero Rubin Work Phone: 3(202)727-822652 [place] [address] 06-02-2023 09:29-0400 Body weight 52.[address] Piero Rubin Work Phone: 7(646)531-420352 [place] [address] 05-27-2023 11:49-0400 Body height 172.[address] Piero Rubin Work Phone: 6(916)302-115552 [place] [address] 05-15-2023 08:02-0400 Body temperature 98.4 [degF] Dr. Piero Rubin Work Phone: 6(377)282-827152 [place] [address] 05-15-2023 08:02-0400 Diastolic blood pressure 86 mm[Hg] Dr. Piero Rubin Work Phone: 7(034)655-099452 [place] [address] 05-15-2023 08:02-0400 Heart rate 87 /min Dr. Piero Rubin Work Phone: 6(920)150-822952 [place] [address] 05-15-2023 08:02-0400 Respiratory rate 16 /min Dr. Piero Rubin Work Phone: 8(308)475-109652 [place] [address] 05-15-2023 08:02-0400 SaO2% (BldA) [Mass fraction] 97 % Dr. Piero Rubin Work Phone: 8(806)772-958852 [place] [address] 05-15-2023 08:02-0400 Systolic blood pressure 131 mm[Hg] Dr. Piero Rubin Work Phone: 1(141)838-040752 [place] [address] 05-13-2023 16:58-0400 Body height 172.[address] Piero Rubin Work Phone: 4(958)173-835752 [place] [address] 05-13-2023 16:58-0400 Body weight 47.[address] Piero Rubin Work Phone: 0(426)013-421652 [place] [address] 05-12-2023 10:23-0400 Body mass index (BMI) [Ratio] 15.9 kg/m2 Dr. Piero Rubin Work Phone: 2(790)614-840652 [place] [address] 04-30-2023 15:27-0400 Body temperature 98.4 [degF] Dr. Piero Rubin Work Phone: 8(528)180-475652 [place] [address] 04-30-2023 15:27-0400 Diastolic blood pressure 74 mm[Hg] Dr. Piero Rubin Work Phone: 1(561)762-942652 [place] [address] 04-30-2023 15:27-0400 Heart rate 79 /min Dr. Piero Rubin Work Phone: 1(354)751-331252 [place] [address] 04-30-2023 15:27-0400 Respiratory rate 18 /min Dr. Piero Rubin Work Phone: 8(340)585-162252 [place] [address] 04-30-2023 15:27-0400 SaO2% (BldA) [Mass fraction] 95 % Dr. Piero Rubin Work Phone: 0(974)273-950152 [place] [address] 04-30-2023 15:27-0400 Systolic blood pressure 151 mm[Hg] Dr. Piero Rubin Work Phone: 7(879)166-314652 [place] [address] 04-29-2023 12:31-0400 Body height 172.[address] Piero Rubin Work Phone: 5(082)777-256152 [place] [address] 04-29-2023 12:31-0400 Body weight 52.[address] Piero Rubin Work Phone: 5(861)331-008452 [place] [address] 04-28-2023 13:19-0400 Body mass index (BMI) [Ratio] 17.5 kg/m2 Dr. Piero Rubin Work Phone: 6(533)552-047352 [place] [address] 04-24-2023 13:42-0400 Diastolic blood pressure 71 mm[Hg] Dr. Piero Rubin Work Phone: [facility] 04-24-2023 13:42-0400 Heart rate 76 /min Dr. Piero Rubin Work Phone: [facility] 04-24-2023 13:42-0400 Systolic blood pressure 151 mm[Hg] Dr. Piero Rubin Work Phone: [facility] 04-24-2023 13:01-0400 Body temperature 98.1 [degF] Dr. Piero Rubin Work Phone: [facility] 04-24-2023 13:01-0400 Respiratory rate 18 /min Dr. Piero Rubin Work Phone: [facility] 04-24-2023 13:01-0400 SaO2% (BldA) [Mass fraction] 94 % Dr. Piero Rubin Work Phone: [facility] 04-23-2023 14:44-0400 Body weight 45.[address] Piero Rubin Work Phone: [facility] 04-18-2023 17:20-0400 Body mass index (BMI) [Ratio] 15.2 kg/m2 Dr. Piero Rubin Work Phone: [facility] 04-18-2023 15:02-0400 Body temperature 98.6 [degF] [facility] 04-18-2023 15:02-0400 Diastolic blood pressure 77 mm[Hg] [facility] 04-18-2023 15:02-0400 Heart rate 60 /min [facility] 04-18-2023 15:02-0400 Respiratory rate 18 /min [facility] 04-18-2023 15:02-0400 SaO2% (BldA) [Mass fraction] 94 % [facility] 04-18-2023 15:02-0400 Systolic blood pressure 162 mm[Hg] [facility] 04-18-2023 12:28-0400 Body height 175.26 cm [facility] 04-18-2023 12:28-0400 Body mass index (BMI) [Ratio] 17.4 kg/m2 [facility] 04-18-2023 12:28-0400 Body weight 53.7 kg [facility] 04-17-2023 08:55-0400 Body temperature 98.2 [degF] Lacey Zimmer SLUSHER OPERATOR.[employer] WORKER Work Phone: [facility] 04-17-2023 08:55-0400 Body weight 49.99 kg Lacey Zimmer SLUSHER OPERATOR.[employer] WORKER Work Phone: [facility] 04-17-2023 08:55-0400 Diastolic blood pressure 82 mm[Hg] Lacey Zimmer SLUSHER OPERATOR.[employer] WORKER Work Phone: [facility] 04-17-2023 08:55-0400 Heart rate 64 /min Lacey Zimmer SLUSHER OPERATOR.[employer] WORKER Work Phone: [facility] 04-17-2023 08:55-0400 Respiratory rate 18 /min Lacey Zimmer SLUSHER OPERATOR.[employer] WORKER Work Phone: [facility] 04-17-2023 08:55-0400 SaO2% (BldA) [Mass fraction] 100 % Lacey Zimmer SLUSHER OPERATOR.[employer] WORKER Work Phone: [facility] 04-17-2023 08:55-0400 Systolic blood pressure 152 mm[Hg] Lacey Zimmer SLUSHER OPERATOR.[employer] WORKER Work Phone: [facility] 01-01-2023 12:43-0500 Diastolic blood pressure 84 mm[Hg] Ines Chatterjee PA-C Work Phone: [facility] 01-01-2023 12:43-0500 Systolic blood pressure 146 mm[Hg] Ines Chatterjee PA-C Work Phone: [facility] 01-01-2023 11:44-0500 Body temperature 97.7 [degF] Ines Chatterjee PA-C Work Phone: [facility] 01-01-2023 11:44-0500 Body weight 50.35 kg Ines DELGADOC Work Phone: [facility] 01-01-2023 11:44-0500 Heart rate 66 /min Ines Chatterjee PA-C Work Phone: [facility] 01-01-2023 11:44-0500 Respiratory rate 16 /min Ines Chatterjee PA-C Work Phone: [facility] 01-01-2023 11:44-0500 SaO2% (BldA) [Mass fraction] 100 % Ines Chatterjee PA-C Work Phone: [facility] 08-25-2022 14:23-0400 Body height 163.8 cm Piero Rubin MD Work Phone: [facility] 08-25-2022 14:23-0400 Body weight 49.44 kg Piero Rubin MD Work Phone: [facility] 08-25-2022 14:23-0400 Diastolic blood pressure 70 mm[Hg] Piero Rubin MD Work Phone: [facility] 08-25-2022 14:23-0400 Heart rate 64 /min Piero Rubin MD Work Phone: [facility] 08-25-2022 14:23-0400 Respiratory rate 16 /min Piero Rubin MD Work Phone: [facility] 08-25-2022 14:23-0400 Systolic blood pressure 140 mm[Hg] Piero Rubin MD Work Phone: [facility] Encounters Encounter Date Encounter Type Care Provider Facility Start: 02-21-2025 End: 02-21-2025 Telephone encounter Piero Rubin MD Work Phone: [facility] Start: 01-16-2025 End: 01-16-2025 Follow-up encounter Ines DELGADOC Work Phone: [facility] Start: 01-12-2025 End: 01-12-2025 ambulatory PIERO RUBIN Facility:[facility] Start: 01-04-2025 End: 01-04-2025 Follow-up encounter Ines Chatterjee PA-C Work Phone: [facility] Comment on above: Microscopic hematuri a (Primary Dx) Start: 01-04-2025 End: 01-04-2025 Telephone encounter Piero Rubin MD Work Phone: [facility] Comment on above: Patient Update Start: 01-03-2025 End: 01-03-2025 ambulatory PIERO RUBIN Facility:[facility] Start: 01-03-2025 End: 01-03-2025 Patient encounter procedure Ines Chatterjee PA-C Work Phone: [facility] Comment on above: Medicare annual well ness visit, subsequent (Primary Dx); Advance directive discussed with patient; Benign hypertension; Bronchiectasis without complication (HCC); Dementia, unspecified dementia severity, unspecified dementia type, unspecified whether behavioral, psychotic, or mood disturbance or anxiety (HCC); Frequent falls; Leukocytosis, unspecified type; Multiple lung nodules; Valvular heart disease; Osteoarthritis of spine with radiculopathy, lumbar region; T12 compression fracture, initial encounter (HCC); Left displaced femoral neck fracture (HCC); Closed wedge compression fracture of T12 vertebra with routine healing, subsequent encounter; Living will on file at physician's office Start: 12-28-2024 End: 12-28-2024 Chart abstracting Idania Mcdaniels MA [facility] Comment on above: Results Start: 12-27-2024 ambulatory Piero Rubin Facility :[facility] Start: 12-26-2024 End: 12-26-2024 ambulatory Piero Scottie Facility:[facility] Start: 12-20-2024 End: 12-20-2024 Home visit Piero Rubin MD Work Phone: [facility] Comment on above: Closed fracture of n carlos of left femur with routine healing (Primary Dx) Start: 12-19-2024 End: 12-19-2024 Telephone encounter Piero Rubin MD Work Phone: [facility] Comment on above: [facility] OT POC Start: 12-14-2024 End: 12-14-2024 Telephone encounter Piero Rubin MD Work Phone: [facility] Comment on above: re-faxed paperwork Start: 12-07-2024 End: 12-07-2024 Home visit Piero Rubin MD [facility] Phone: [facility] Comment on above: Closed fracture of n carlos of left femur with routine healing (Primary Dx) Start: 11-30-2024 End: 11-30-2024 Telephone encounter Piero Rubin MD Work Phone: [facility] Comment on above: [facility] HH, OT plan of c are Start: 11-28-2024 End: 11-28-2024 Patient encounter procedure Matt Michael MD Work Phone: [facility] Comment on above: Closed fracture of l eft hip requiring operative repair, initial encounter [facility] (Primary Dx); Status post hip hemiarthroplasty Start: 11-28-2024 End: 11-28-2024 ambulatory MATT MICHAEL Facility:[facility] Start: 11-23-2024 End: 11-23-2024 Telephone encounter Piero Rubin MD Work Phone: [facility] Comment on above: Home Health Orders Start: 11-22-2024 End: 11-22-2024 ambulatory Heather Márquez MA [facility] Start: 11-22-2024 End: 11-22-2024 Patient encounter procedure Heather Márquez MA [facility] Comment on above: Population Health Na vigation Outreach ([facility] ) Start: 11-17-2024 ambulatory Efobey williamson OLS Facility:[facility] Start: 11-10-2024 ambulatory Efewongkalen williamson OLS Facility:[facility] Start: 11-08-2024 End: 11-08-2024 ambulatory Efhernestobe Chelseye Facility:[facility] Start: 11-03-2024 ambulatory Efobey williamson OLS Facility:[facility] Start: 11-02-2024 End: 11-02-2024 ambulatory Angelica Singletary NP Facility:[facility] Start: 10-28-2024 End: 10-28-2024 Chart abstracting Piero Rubin MD Work Phone: [facility] Comment on above: ER Discharge Summary Start: 10-28-2024 End: 11-02-2024 Evaluation and management of inpatient PIERO RUBIN Facility:[facility] Start: 10-27-2024 End: 10-28-2024 Emergency department patient visit Min Ortega Facility:[facility] Start: 10-25-2024 End: 10-27-2024 Telephone encounter Piero Rubin MD Work Phone: [facility] Comment on above: Patient Question Start: 10-18-2024 End: 10-19-2024 Refill Piero Rubin MD Work Phone: [facility] Comment on above: Patient Update Start: 09-27-2024 End: 09-27-2024 Refill Piero Rubin MD Work Phone: [facility] Comment on above: Refill Request Start: 08-26-2024 End: 08-26-2024 Telephone encounter Piero Rubin MD Work Phone: [facility] Comment on above: Patient Update Start: 07-29-2024 End: 07-29-2024 Chart abstracting Piero Rubin MD Work Phone: [facility] Comment on above: Outside Imaging Start: 07-29-2024 End: 07-29-2024 ambulatory [facility] Facility:[facility] Start: 05-25-2024 Refill Idania Mcdaniels MA [facility] Comment on above: Refill Request Start: 03-15-2024 ambulatory Piero perez MD Work Phone: [facility] Comment on above: Thank You Start: 03-11-2024 End: 03-11-2024 ambulatory PIERO RUBIN Facility:[facility] Start: 03-11-2024 End: 03-11-2024 Patient encounter procedure Piero Rubin MD Work Phone: [facility] Comment on above: Dementia, unspecifie d dementia severity, unspecified dementia type, unspecified whether behavioral, psychotic, or mood disturbance or anxiety (HCC) (Primary Dx); Risk for falls Start: 03-08-2024 ambulatory Piero perez MD Work Phone: [facility] Comment on above: Things we would like addresed Start: 02-17-2024 Telephone encounter Piero Rubin MD Work Phone: [facility] Comment on above: send copy of letter to his father ; Results Start: 02-02-2024 Chart abstracting Piero ny MD Work Phone: [facility] Comment on above: Outside neurology Start: 02-01-2024 Telephone encounter Piero Rubin MD Work Phone: [facility] Comment on above: Patient Update Start: 02-01-2024 End: 02-01-2024 ambulatory Rahul [facility] Facility:[facility] Start: 12-26-2023 Telephone encounter Piero Rubin MD Work Phone: [facility] Comment on above: Results Start: 12-25-2023 End: 12-25-2023 Patient encounter procedure Piero Rubin MD Work Phone: [facility] Comment on above: Medicare annual well ness visit, subsequent (Primary Dx); Benign hypertension; History of recurrent TIAs; Dementia, unspecified dementia severity, unspecified dementia type, unspecified whether behavioral, psychotic, or mood disturbance or anxiety (HCC); Macrocytic anemia; T12 compression fracture, initial encounter (HCC); Bronchiectasis without complication (HCC); Valvular heart disease Start: 12-21-2023 Refill Idania Mcdaniels MA [facility] Comment on above: Refill Request; Refi ll Request Start: 11-26-2023 End: 11-26-[address] Piero Rubin Work Phone: [facility] Work Phone: Start: 11-26-2023 End: 11-26-[address] Piero Rubin Work Phone: [facility]-Radiology, [facility] Work Phone: Start: 11-17-2023 End: 11-17-[address] Piero Rubin Work Phone: [facility] Work Phone: Start: 11-17-2023 End: 11-17-[address] Piero Rubin Work Phone: [facility] Work Phone: Start: 10-26-2023 Chart abstracting Piero ny MD Work Phone: [facility] Comment on above: outside neuro Start: 10-13-2023 ambulatory Mirna Black MD Work Phone: Pulmonary Medicine Comment on above: Question regarding C T CHEST WO IVCON Start: 10-05-2023 End: 10-05-2023 Subsequent hospital visit by physician [facility] (I-Stat) Work Phone: Cat Scan Comment on above: Lung nodules [R91.8] Start: 10-02-2023 End: 10-02-2023 Emergency department patient visit Dr. Piero Rubin Work Phone: [facility]-Emergency Department Work Phone: Start: 10-02-2023 Telephone encounter Piero Rubin MD Work Phone: [facility] Comment on above: Constipation Start: 10-01-2023 Refill Piero perez MD Work Phone: [facility] [place] Comment on above: Refill Request Start: 10-01-2023 End: 10-01-[address] Piero Rubin Work Phone: [facility] Work Phone: Start: 07-15-2023 Telephone encounter Piero Rubin MD Work Phone: [facility] Comment on above: Provider Call-Requceasar foss call back Start: 07-13-2023 Telephone encounter Idania Mcdaniels MA [facility] Comment on above: Results Start: 07-11-2023 End: 07-11-[address] Piero Rubin Work Phone: [facility] Work Phone: Start: 07-11-2023 End: 07-11-[address] Piero Rubin Work Phone: [facility] Work Phone: Start: 07-08-2023 Telephone encounter Piero Rubin MD Work Phone: [facility] Comment on above: Patient Question Start: 07-07-2023 Home visit Piero perez MD Work Phone: [facility] Comment on above: Closed fracture of s acrum with routine healing, unspecified portion of sacrum, subsequent encounter (Primary Dx); Lumbar radiculopathy Start: 07-03-2023 Telephone encounter Piero Rubin MD Work Phone: [facility] Comment on above: Results Start: 07-02-2023 End: 07-02-[address] Piero Rubin Work Phone: [facility] Work Phone: Start: 07-02-2023 End: 07-02-[address] Piero Rubin Work Phone: [facility] Work Phone: Start: 07-01-2023 Telephone encounter Piero Rubin MD Work Phone: [facility] Comment on above: Patient Update Start: 06-30-2023 Chart abstracting Piero ny MD Work Phone: [facility] Comment on above: PT/OT Discharge Summ cate Start: 06-29-2023 Telephone encounter Piero Rubin MD Work Phone: [facility] Comment on above: Results Start: 06-23-2023 Telephone encounter Piero Rubin MD Work Phone: [facility] Comment on above: Results Start: 06-22-2023 Telephone encounter Piero Rubin MD Work Phone: [facility] Comment on above: Results Start: 06-21-2023 Telephone encounter Piero Rubin MD Work Phone: [facility] Comment on above: Results Start: 06-18-2023 End: 06-18-2023 Subsequent hospital visit by physician Esa [facility] Work Phone: Radiology Comment on above: Foot pain, bilateral [M79.671, M79.672] Start: 06-18-2023 End: 06-18-2023 Patient encounter procedure Piero Rubin MD Work Phone: [facility] Comment on above: Lumbar radiculopathy (Primary Dx); Foot pain, bilateral; Acute bilateral ankle pain; Bilateral leg edema; Abnormal radionuclide bone scan; Benign hypertension; Thrombocytopenia (HCC); Osteoarthritis of spine with radiculopathy, lumbar region; Repeated falls; Radiculopathy of lumbar region; Lung mass Start: 06-12-2023 Telephone encounter Piero Rubin MD Work Phone: [facility] Comment on above: Speech Therapy C U pdate Start: 06-10-2023 Telephone encounter Piero Rubin MD Work Phone: [facility] Comment on above: Home Health Point of Care Results Start: 05-15-2023 End: 05-15-[address] Piero Rubin Work Phone: [facility] Work Phone: Start: 05-15-2023 Chart abstracting Piero ny MD Work Phone: [facility] Comment on above: Hospital F/U Start: 04-29-2023 Chart abstracting Piero ny MD Work Phone: [facility] Comment on above: Hospital F/U Start: 04-27-2023 End: 04-27-[address] Piero Rubin Work Phone: [facility] Work Phone: Start: 04-27-2023 End: 04-27-[address] Piero Rubin Work Phone: [facility] Start: 04-24-2023 End: 06-05-2023 Evaluation and management of inpatient Dr. Piero Rubin Work Phone: [facility]-Transitional Care Unit Start: 04-24-2023 Non-patient / Non-visit Dr. Albaro Rubin Work Phone: [facility] Inpatient Physicians Start: 04-24-2023 Non-patient / Non-visit Dr. Albaro Rubin Work Phone: [facility] Start: 04-23-2023 Non-patient / Non-visit Dr. Albaro Rubin Work Phone: [facility] Inpatient Physicians Start: 04-23-2023 Non-patient / Non-visit Dr. Albaro Rubin Work Phone: [facility] Start: 04-22-2023 Non-patient / Non-visit Dr. Albaro Rubin Work Phone: [facility] Inpatient Physicians Start: 04-22-2023 Chart abstracting Piero ny MD Work Phone: [facility] Comment on above: Hospital Follow Up Start: 04-21-2023 Non-patient / Non-visit [facility] Albar[facility] Start: 04-21-2023 Non-patient / Non-visit Dr. Albaro Rubin Work Phone: [facility] Inpatient Phys[facility] Start: 04-20-2023 Chart abstracting Piero ny MD Work Phone: [facility] Comment on above: Outside CT Start: 04-20-2023 Non-patient / Non-visit Dr. Albaro Rubin Work Phone: [facility] Inpatient Phys[facility] Start: 04-20-2023 Non-patient / Non-visit Dr. Albaro Rubin Work Phone: [facility] Start: 04-19-2023 Non-patient / Non-visit Dr. Albaro Rubin Work Phone: [facility] Inpatient Physicians Start: 04-18-2023 End: 04-24-2023 Evaluation and management of inpatient [facility]-Medical Surgical 3 Start: 04-17-2023 ambulatory Piero perez MD Work Phone: [facility] Comment on above: Fall Start: 04-17-2023 End: 04-17-2023 Subsequent hospital visit by physician Xr [facility] Work Phone: Radiology Comment on above: Fall (on) (from) oth er stairs and steps, initial encounter [W10.8XXA] Start: 04-17-2023 End: 04-17-2023 Patient encounter procedure Lacey Zimmer APRN.[employer] WORKER Work Phone: [facility] Comment on above: Fall (on) (from) oth er stairs and steps, initial encounter (Primary Dx); Acute pain of left shoulder; Acute bilateral thoracic back pain; Hip pain, left Start: 02-20-2023 Refill Piero perez MD Work Phone: [facility] Comment on above: Refill Request Start: 01-21-2023 Refill Piero perez MD Work Phone: [facility] Comment on above: Refill Request Start: 01-07-2023 Refill Piero perez MD Work Phone: [facility] Comment on above: Refill Request Start: 2023 Telephone encounter Piero Rubin MD Work Phone: [facility] Comment on above: Results Start: 01-01-2023 End: 01-01-2023 Patient encounter procedure Ines Chatterjee PA-C Work Phone: [facility] Comment on above: Pharyngitis, unspeci fied etiology (Primary Dx) Start: 10-14-2022 Refill Piero perez MD Work Phone: [facility] Comment on above: Refill Request Start: 08-27-2022 Telephone encounter Ines Autumn rob PA-C Work Phone: [facility] Comment on above: Results Start: 08-26-2022 Telephone encounter Piero Rubin MD Work Phone: [facility] Comment on above: Patient Question Start: 08-25-2022 End: 08-25-2022 Patient encounter procedure Piero Rubin MD Work Phone: [facility] Comment on above: Medicare annual well ness visit, subsequent (Primary Dx); Benign hypertension; Macrocytic anemia; Lumbar radiculopathy; Living will on file at physician's office; Advance directive discussed with patient; Encounter for immunization Start: 08-11-2022 Refill Piero perez MD Work Phone: [facility] Comment on above: Refill Request Start: 07-23-2022 Telephone encounter Piero Rubin MD Work Phone: [facility] Comment on above: requesitng lab order s Start: 04-25-2022 Refill Piero perez MD Work Phone: [facility] Comment on above: Refill Request Start: 04-17-2022 Refill Piero perez MD Work Phone: [facility] Comment on above: Refill Request Start: 08-23-2021 Patient encounter procedure Piero Rubin MD Work Phone: [facility] Work Phone: Procedures Date Procedure Procedure Detail Performing Clinician Start: 11-29-2024 Radiologic examinati on pelvis 1/2 views Matt Michael MD Work Phone: Start: 10-28-2024 Antibody screen MATT MICHAEL Comment on above: Order Comment: Speci men Type: BLOOD SPECIMENOrdering Facility: [facility] Address: [address] [place] [address] Performed By: #### T SCR ####[facility] [id number] [place] [address] [facility] Start: 11-26-2023 Complete x-ray serie s of lumbar spine with bending views Dr. Piero Rubin Work Phone: Start: 11-17-2023 MRI of brain without contrast Dr. Piero Rubin Work Phone: Start: 10-02-2023 Diagnostic radiograp hy of abdomen Dr. Piero Rubin Work Phone: Start: 07-11-2023 MRI of lumbar spine Dr. Piero Rubin Work Phone: Start: 07-02-2023 CT of chest without contrast Dr. Piero Rubin Work Phone: Start: 06-18-2023 Radex foot complete minimum 3 views Piero Rubin MD Work Phone: Start: 05-22-[address] Simone Rubin Work Phone: Start: 05-22-2023 Plain chest X-ray Dr. Reshma Rubin Work Phone: Start: 05-12-[address] Simone Rubin Work Phone: Start: 04-28-[address] Piero Rubin Work Phone: Start: 04-27-2023 Radionuclide whole b michael bone study Dr. Piero Rubin Work Phone: Start: 04-24-[address] Piero Rubin Work Phone: Start: 04-23-2023 Injection of spinal epidural space Dr. Piero Rubin Work Phone: Start: 04-23-[address] Stefanie Rubin Work Phone: Start: 04-23-2023 Local anesthetic lum bar epidural block Dr. Piero Rubin Work Phone: Start: 04-23-2023 Computed tomography of abdomen and pelvis with contrast Dr. Piero Rubin Work Phone: Start: 04-20-2023 MRI of cervical spin e with contrast Dr. Piero Rubin Work Phone: Start: 04-18-2023 CT of thorax with contrast Start: 04-18-2023 Computed tomography of thoracic spine without contrast Start: 04-18-2023 CT cervical spine wi thout contrast Start: 04-18-2023 CT of head without contrast Start: 04-18-2023 CT of lumbar spine Start: 04-18-2023 Plain chest X-ray Start: 04-17-2023 Radex hip unilateral with pelvis 2-3 views Lacey Zimmer APRN.[employer] WORKER Work Phone: Start: 01-01-2023 STREP A MOLECULAR (POC) Ines Chatterjee PA-C Work Phone: Start: 08-25-2022 INFLUENZA SEASONAL QUADRIVALENT HIGH DOSE AGE 65+ Piero Rubin MD Work Phone: Start: 08-25-2022 PFIZER-BIONTECH COVI D-19 BIVALENT BOOSTER VACCINE, AGE 12+ YR Piero Rubin MD Work Phone: Plan of Treatment Date Care Activity Detail Author Start: 01-03-2028 Diabetes Screening Diabetes Screening [facility] Start: 11-02-2027 Diabetes Screening Diabetes Screening [facility] Start: 10-28-2027 Diabetes Screening Diabetes Screening [facility] Start: 12-25-2026 Diabetes Screening Diabetes Screening [facility] Start: 06-18-2026 DIABETES SCREEN DIABETES SCREEN [facility] Start: 06-18-2026 Diabetes Screening Diabetes Screening [facility] Start: 01-03-2026 End: 01-03-2026 Patient encounter procedure [facility] Comment on above: Medicare Wellness Start: 08-18-2025 DIABETES SCREEN DIABETES SCREEN [facility] Start: 05-29-2025 End: 05-29-2025 Patient encounter procedure 05/29/2025 3:45 PM EDT Office Visit [facility] [address] [place] [address] Matt Michael MD [address] [place] [address] PO L hip SX 10-28-24 [facility] Comment on above: PO L hip SX 10-28-24 Start: 01-11-2025 End: 04-12-2025 Urinalysis complete panel - Urine URINALYSIS, WITH MICROSCOPIC Lab Routine Microscopic hematuria Expected: 01/11/2025, Expires: 04/12/2025 [facility] Work Phone: Comment on above: Expected: 01/11/2025, Expires: Start: 01-04-2025 End: 04-05-2025 Bacteria identified in Urine by Culture BACTERIAL CULTURE, URINE Microbiology Routine Microscopic hematuria Expected: 01/04/2025, Expires: 04/05/2025 [facility] Comment on above: Expected: 01/04/2025, Expires: Start: 01-03-2025 End: 04-04-2025 Comprehensive metabolic 2000 panel - Serum or Plasma [facility] Comment on above: Expected: 01/03/2025, Expires: Start: 01-03-2025 End: 04-04-2025 LIPID PANEL, NONFASTING [facility] Work Phone: Comment on above: Expected: 01/03/2025, Expires: Start: 01-03-2025 End: 04-04-2025 Urinalysis complete panel - Urine [facility] Comment on above: Expected: 01/03/2025, Expires: Start: 01-03-2025 End: 01-03-2025 Patient encounter procedure 01/03/2025 9:40 AM EST Office Visit [facility] [address] [facility] [place] [id number] Ines Chatterjee PA-C [address] [facility] [place] [id number] Medicare Wellness [facility] Comment on above: Medicare Wellness Start: 12-28-2024 End: 12-28-2024 Patient encounter procedure [facility] Comment on above: physical Medicare Wellness Start: 12-25-2024 RSV Vaccine (1 - 1-dose 60+ series) RSV Vaccine (1 - 1-dose 60+ series) [facility] Comment on above: Postponed from 1999 (Insurance Cov erage) Start: 12-25-2024 RSV Vaccine (1 - 1-dose 75+ series) RSV Vaccine (1 - 1-dose 75+ series) [facility] Comment on above: Postponed from 2014 (Insurance Cov erage) Start: 12-25-2024 Urine microalbumin profile DTaP,Tdap,Td Vaccine (3 - Tdap) [facility] Comment on above: Postponed from 06/21/2022 (Insurance Cov erage) Start: 11-28-2024 End: 11-28-2024 Patient encounter procedure 11/28/2024 3:45 PM EST Office Visit [facility] [address] [place], [place] [id number] Matt Michael MD [address] [place] [phone] po L hip - [facility] Comment on above: po L hip 10-28 Start: 11-16-2024 Advance Directive Discussion Advance Directive Discussion [facility] Start: 10-28-2024 End: 10-28-2024 Hemiarthroplasty hip partial HEMIARTHROPLASTY REPLACE JOINT PARTIAL HIP Fracture of femoral neck (HCC) 10/28/2024 3:58 PM EST [place] Start: 07-17-2024 Covid-19 Vaccine ( season) Covid-19 Vaccine ( season) [facility] Start: 07-17-2024 Covid-19 Vaccine ( season) Covid-19 Vaccine ( season) [facility] Start: 07-17-2024 Influenza vaccination [facility] Start: 03-11-2024 End: 03-11-2024 Patient encounter procedure 03/11/2024 11:00 AM EDT Office Visit Family Jessica Kirby [address] [facility] [place] [address] Piero Rubin MD [address] [place] [address] follow up, discuss appt with Dr. Alberto, son will be present [facility] Comment on above: follow up, discuss appt with Dr. Alberto , son will be present Start: 12-28-2023 Covid-19 Vaccine () Covid-19 Vaccine () [facility] Start: 12-25-2023 End: 03-25-2024 Urinalysis complete panel - Urine [facility] Work Phone: Comment on above: Expected: 12/25/2023, Expires: Start: 11-16-2023 Advance Directive Discussion Advance Directive Discussion [facility] Start: 10-02-2023 [facility] Start: 08-25-2023 Urine microalbumin profile DTAP,TDAP,TD (3 - Tdap) [facility] Comment on above: Postponed from 06/21/2022 (Insurance Cov erage) Start: 07-24-2023 DIABETES SCREEN DIABETES SCREEN [facility] Start: 07-17-2023 Covid-19 Vaccine () Covid-19 Vaccine () [facility] Start: 07-17-2023 Influenza vaccination [facility] Start: 06-22-2023 End: 08-22-2023 KAPPA/DOW,FREE,SER KAPPA/DOW,FREE,SER Lab Routine Abnormal serum protein test Expected: 06/22/2023, Expires: 08/22/2023 [facility] Work Phone: Comment on above: Expected: 06/22/2023, Expires: 3 Start: 06-22-2023 End: 08-22-2023 MONOCLONAL PROTEIN, SERUM (BLOOD) MONOCLONAL PROTEIN, SERUM (BLOOD) Lab Routine Abnormal serum protein test Expected: 06/22/2023, Expires: 08/22/2023 [facility] Work Phone: Comment on above: Expected: 06/22/2023, Expires: 3 Start: 06-18-2023 End: 08-18-2023 PROTEIN ELECT RND UR W/[facility] Work Phone: Comment on above: Expected: 06/18/2023, Expires: 3 Start: 06-18-2023 End: 08-18-2023 PROTEIN [facility]ROPHORESIS SERUM [facility] Work Phone: Comment on above: Expected: 06/18/2023, Expires: 3 Start: 06-06-2023 Blood chemistry [facility] Start: 06-05-2023 Development of care plan [facility] Start: 06-05-2023 Patient discharge [facility] Start: 06-02-2023 Palliative care [facility] Start: 05-30-2023 Blood chemistry [facility] Start: 05-29-2023 Development of care plan [facility] Start: 05-29-2023 Referral to service [facility] Start: 05-29-2023 [facility] Start: 05-27-2023 Speech therapy management [facility] Start: 05-23-2023 [facility] Start: 05-23-2023 Fluid intake encouragement [facility] Start: 05-23-2023 Blood chemistry [facility] Start: 05-22-2023 [facility] Start: 05-21-2023 Recommendation to continue with treatment [facility] Start: 05-18-2023 Development of care plan [facility] Start: 05-16-2023 Blood chemistry [facility] Start: 05-15-2023 Patient discharge [facility] Start: 05-02-2023 Blood chemistry [facility] Start: 05-01-2023 Introduction of urinary catheter [facility] Start: 04-28-2023 Speech therapy management [facility] Start: 04-28-2023 [facility] Start: 04-27-2023 [facility] Start: 04-25-2023 Speech therapy management [facility] Start: 04-25-2023 Developing a treatment plan [facility] Start: 04-25-2023 Development of care plan [facility] Start: 04-24-2023 Verification routine [facility] Start: 04-24-2023 Speech therapy assessment [facility] Start: 04-24-2023 Speech therapy management [facility] Start: 04-24-2023 Admission procedure [facility] Start: 04-24-2023 Measuring intake and output [facility] Start: 04-24-2023 Patient referral to dietitian [facility] Start: 04-24-2023 Referral to occupational therapist [facility] Start: 04-24-2023 Referral to service [facility] Start: 04-24-2023 Vital signs measurements [facility] Start: 04-24-2023 [facility] Start: 04-24-2023 Patient discharge [facility] Start: 04-24-[address] [facility] Start: 04-24-2023 Provision of activity privileges [facility] Start: 04-22-2023 Medication not administered [facility] Start: 04-22-2023 End: 04-22-2023 [facility] Start: 04-22-2023 Consultation for pain [facility] Start: 04-20-2023 Chart related administrative procedure [facility] Start: 04-19-2023 Consultation [facility] Start: 04-18-2023 Following clinical pathway protocol [facility] Start: 04-18-2023 Ambulation without limitation [facility] Start: 04-18-2023 Assessment of risk of venous thromboembolism [facility] Start: 04-18-2023 Insertion of catheter into peripheral vein [facility] Start: 04-18-2023 Providing care according to standard [facility] Start: 04-18-2023 Referral to occupational therapist [facility] Start: 04-18-2023 Referral to service [facility] Start: 04-18-2023 [facility] Start: 04-18-2023 Admission procedure [facility] Start: 04-18-2023 Verification routine [facility] Start: 04-18-2023 [facility] Start: 04-18-20[facility] Start: 12-26-2022 COVID-19 VACCINE (6 - Pfizer series) COVID-19 VACCINE (6 - Pfizer series) [facility] Start: 11-16-2022 ADVANCE DIRECTIVE DISCUSSION ADVANCE DIRECTIVE DISCUSSION [facility] Start: 08-26-2022 End: 10-26-2022 POTASSIUM BLD [facility] Work Phone: Comment on above: Expected: 08/26/2022, Expires: 2 Start: 07-23-2022 End: 09-22-2022 CBC W Auto Differential panel - Blood CBC + DIFF Lab Routine Anemia in other chronic diseases classified elsewhere Macrocytic anemia Expected: 07/23/2022, Expires: 09/22/2022 [facility] Work Phone: Comment on above: Expected: 07/23/2022, Expires: 2 Start: 07-23-2022 End: 09-22-2022 Comprehensive metabolic 2000 panel - Serum or Plasma COMP METABOLIC PANEL Lab Routine Benign hypertension Expected: 07/23/2022, Expires: 09/22/2022 [facility] Work Phone: Comment on above: Expected: 07/23/2022, Expires: 2 Start: 07-23-2022 End: 09-22-2022 LIPID PANEL, NONFASTING LIPID PANEL, NONFASTING Lab Routine Benign hypertension Expected: 07/23/2022, Expires: 09/22/2022 [facility] Work Phone: Comment on above: Expected: 07/23/2022, Expires: 2 Start: 07-23-2022 End: 09-22-2022 Urinalysis complete panel - Urine URINALYSIS, WITH MICROSCOPIC Lab Routine Benign hypertension Expected: 07/23/2022, Expires: 09/22/2022 [facility] Work Phone: Comment on above: Expected: 07/23/2022, Expires: 2 Start: 07-17-2022 Influenza vaccination INFLUENZA (#1) [facility] Start: 06-21-2022 Urine microalbumin profile [facility] Start: 12-21-2021 COVID-19 VACCINE (4 - Booster for Pfizer series) COVID-19 VACCINE (4 - Booster for Pfizer series) [facility] Start: 11-16-2021 ADVANCE DIRECTIVE DISCUSSION ADVANCE DIRECTIVE DISCUSSION [facility] Start: 10-15-2021 COVID-19 VACCINE (4 - Booster for Pfizer series) COVID-19 VACCINE (4 - Booster for Pfizer series) [facility] Start: 2014 RSV Vaccine (1 - 1-dose 75+ series) RSV Vaccine (1 - 1-dose 75+ series) [facility] Start: 1999 RSV Vaccine (1 - 1-dose 60+ series) RSV Vaccine (1 - 1-dose 60+ series) [facility] Anion gap measurement [facility] BUN/Creatinine ratio [facility] Calcium [Mass/volume ] in Serum or Plasma [facility] Carbon dioxide, tota l [Moles/volume] in Serum or Plasma [facility] Chloride [Moles/volu me] in Serum or Plasma [facility] Complete blood count [facility] Creatinine [Moles/vo lume] in Serum or Plasma [facility] Ct thorax w/o contra st material CT CHEST WO IVCON Radiology Routine Lung nodules 10/05/2023 8:59 AM EST [facility] Work Phone: Folate [Mass/volume] in Serum or Plasma [facility] Glucose [Mass/volume ] in Serum or Plasma [facility] Hematocrit [Volume Fraction] of Blood [facility] Hemoglobin [Mass/vol ume] in Blood [facility] Influenza virus A an d B RNA and SARS-CoV-2 (COVID-19) N gene panel - Respiratory specimen by BIANCA with probe detection COVID WITH FLUA+B, ROUTINE Microbiology Routine Pharyngitis, unspecified etiology Ordered: 01/01/2023 [facility] Work Phone: Comment on above: Ordered: 01/01/2023 Leukocytes [#/volume ] in Blood [facility] Mean corpuscular hemoglobin concentration determination [facility] Mean corpuscular hemoglobin determination [facility] Measurement of renal function [facility] End: 07-17-2024 Mri spinal canal lumbar w/o contrast material MRI LUMBAR SPINE WO IVCON Radiology Routine Radiculopathy of lumbar region Lumbar radiculopathy Foot pain, bilateral Acute bilateral ankle pain Osteoarthritis of spine with radiculopathy, lumbar region Repeated falls 1 Occurrences starting 06/18/2023 until 07/17/2024 [facility] Work Phone: Comment on above: 1 Occurrences starting 06/18/2023 until 07/17/2024 [address]roph[address] [facility] Neutrophil percent differential count [facility] Patient Education [facility] Work Phone: Patient referral [facility] Work Phone: Platelets [#/volume] in Blood [facility] Potassium [Moles/vol ume] in Serum or Plasma [facility] Red blood cell count [facility] Red cell distributio n width determination [facility] Sodium [Moles/volume ] in Serum or Plasma [facility] T4 free measurement [facility] Thiamine measurement [facility] Thyroid stimulating hormone measurement [facility] Urea nitrogen [Mass/volume] in Serum or Plasma [facility] Vitamin B12 measurement [facility] End: 07-17-2024 XR FOOT GENERAL 3V AP/LAT/OBL BILATERAL XR FOOT GENERAL 3V AP/LAT/OBL BILATERAL Radiology Routine Foot pain, bilateral Acute bilateral ankle pain 1 Occurrences starting 06/18/2023 until 07/17/2024 [facility] Work Phone: Comment on above: 1 Occurrences starting 06/18/2023 until 07/17/2024 XR FOOT GENERAL 3V AP/LAT/OBL BILATERAL XR FOOT GENERAL 3V AP/LAT/OBL BILATERAL Radiology Routine Foot pain, bilateral Acute bilateral ankle pain 06/18/2023 2:39 PM EDT [facility] Work Phone: [facility] Immunizations Immunization Date Immunization Notes Care Provider Edson dietz 08-30-2024 Seasonal trivalent influenza vaccine, adjuvanted, preservative free Ines Chatterjee PA-C Work Phone: [facility] 08-27-2023 COVID-19 vaccine, ag e 12+ yr, season (OpenDrive) Piero Rubin MD Work Phone: [facility] Work Phone: 08-27-2023 influenza, high dose seasonal, preservative-free Piero Rubin MD Work Phone: [facility] Work Phone: 08-27-2023 influenza virus vacc ine, unspecified formulation Idania Mcdaniels BERNARD [facility] 10-05-[address] Piero Rubin Work Phone: [facility] 08-25-2022 COVID-19 booster vaccine, age 12+ yr, bivalent (PFIZER-BIONTECH) Piero Rubin MD Work Phone: [facility] 08-25-2022 influenza, high dose seasonal, preservative-free Dr. Piero Rubin Work Phone: [facility] 08-25-2022 influenza, high-dose , quadrivalent vaccine (FLUZONE HIGH DOSE QUADRIVALENT) Piero Rubin MD Work Phone: [facility] 08-25-2022 influenza virus vacc ine, unspecified formulation Piero Rubin MD Work Phone: [facility] 03-07-2022 Covid (Pfizer) Dr. Piero poole Work Phone: [facility] 08-23-2021 influenza, high-dose , quadrivalent vaccine (FLUZONE HIGH DOSE QUADRIVALENT) Piero Rubin MD Work Phone: [facility] 08-20-2021 COVID-19 vaccine, ag e 12+ yr (PFIZER-BIONTECH - PURPLE TOP) Piero Rubin MD Work Phone: [facility] Work Phone: 01-01-2021 Covid (Pfizer) Dr. Piero poole Work Phone: [facility] 12-11-2020 Covid (Pfizer) Dr. Piero poole Work Phone: [facility] 09-27-2020 zoster vaccine recombinant Piero Rubin MD Work Phone: [facility] 07-26-2020 zoster vaccine recombinant Piero Rbuin MD Work Phone: [facility] 07-24-2020 influenza, high dose seasonal, preservative-free Piero Rubin MD Work Phone: [facility] 07-28-2019 influenza, high dose seasonal, preservative-free Piero Rubin MD Work Phone: [facility] 07-30-2018 influenza, high dose seasonal, preservative-free Piero Rubin MD Work Phone: [facility] Work Phone: 08-25-2017 influenza, high dose seasonal, preservative-free Piero Rubin MD Work Phone: [facility] 10-28-2016 pneumococcal polysaccharide vaccine, 23 valent Piero Rbuin MD Work Phone: [facility] 06-27-2015 pneumococcal conjuga te vaccine, 13 valbrian Rubin MD Work Phone: [facility] Work Phone: 07-28-[address] Piero Rubin Work Phone: [facility] 07-28-2012 zoster vaccine, live Piero Rubin MD Work Phone: [facility] Work Phone: 06-21-2012 diphtheria and tetan us toxoids, adsorbed for pediatric use Piero Rubin MD Work Phone: [facility] 07-24-2000 diphtheria and tetan us toxoids, adsorbed for pediatric use Piero Rubin MD Work Phone: [facility] 02-18-1999 pneumococcal polysaccharide vaccine, 23 valbrian Rubin MD Work Phone: [facility] Work Phone: 09-21-1990 pneumococcal polysaccharide vaccine, 23 valbrian Rubin MD Work Phone: [facility] 02-18-1989 pneumococcal polysaccharide vaccine, 23 valbrian Rubin MD Work Phone: [facility] Payers Date Payer Category Payer Self-pay [id number] 2021 Medicare HU[employer]NA MEDICARE HU[employer]NA GOLD PLUS [id number] 2021-Present [phone] [place] [id number] O [id number] 2019 Medicare [id number] 2019 Medicare (Managed Care) HUMANA G OLD PLUS [id number] 2019 Medicare [id number] Unknown [facility] PACKAGE PLAN 0 [id number] Unknown [id number] Unknown [id number] Unknown [id number] Unknown [id number] Unknown [id number] Unknown [id number] Unknown [id number] Social History Date Type Detail Facility Start: 02-02-2017 End: 10-28-2024 Tobacco smoking status NHIS Ex-smoker [facility] Work Phone: Start: 03-15-1960 End: 03-15-1990 History of tobacco use Current smoker [facility] Work Phone: Start: 03-15-1960 End: 03-15-1990 History of tobacco use Cigarette Smoker [facility] Work Phone: Start: 09-27-2021 End: 10-28-2024 Alcohol intake Current drinker of alcohol (finding) [facility] Start: 09-27-2021 End: 03-11-2024 Alcohol intake [facility] Work Phone: Start: 09-02-2016 History SDOH Alcohol Comment Occasional. [facility] Start: 02-02-2017 End: 08-25-2022 Tobacco Comment Quit smoking in his 50s. [facility] Start: 1940 Sex Assigned At Not on file C [facility] Start: 02-02-2017 End: 10-28-2024 Tobacco use and exposure Smokeless tobacco non-user [facility] Work Phone: Start: 08-15-2022 End: 08-25-2022 Exposure to SARS-CoV-2 (event) Not sure [facility] Start: 04-18-2023 End: 10-02-2023 Tobacco smoking status DEIS Unknown if ever smoked [facility] Start: 1940 Sex Assigned At Male W [facility] Start: 04-17-2023 End: 03-11-2024 Tobacco use panel [facility] Work Phone: Adult Depression Screening Assessment 0 [facility] Work Phone: Has the [employer], [employer], [employer], or water company threatened to shut off services in your home in past 12Mo No [facility] Are you now , , , , never or living with a partner? [facility] How often to you hav e a drink containing alcohol? Never [facility] Do you feel stress - tense, restless, nervous, or anxious, or unable to sleep at night because your mind is troubled all the time - these days [OSQ] Not at all [facility] (I/We) worried wheth er (my/our) food would run out before (I/we) got money to buy more. Never true [facility] Start: 10-28-2024 End: 01-03-2025 Alcoholic beverage intake Ex-drinker (finding) [facility] Start: 11-17-2024 Gender identity Identifies as male gender (finding) [facility] Start: 11-17-2024 Sexual orientation Heterosexual (daniela layne) [facility] Medical Equipment Procedure Code Equipment Code Equipment Origin al Text Equipment Identifier Dates Head Unitrax 49m m Unipolar Modular Redford V40 Stem Hip Femoral - [id number] Start: 10-28-2024 Stem Femoral 109 mm Size 7 High Offset Insignia Collared - [id number] Start: 10-28-2024 Sleeve Unitrax V 40 Redford +0mm Taper Centering Unipolar Hip - [id number] Start: 10-28-2024 Goals Date Patient Goal Desired Activity /State Functional Status Date Assessment Result Facility 11-02-2024 Are you deaf, or do you have serious difficulty hearing No 11/02/2024 9:37 AM Dilcia Keyes RN No [facility] 11-02-2024 Are you blind, or do you have serious difficulty seeing, even when wearing glasses No 11/02/2024 9:37 AM Dilcia Keyes RN No [facility] 11-02-2024 Do you have serious difficulty walking or climbing stairs Yes 11/02/2024 9:37 AM Dilcia Keyes RN Yes [facility] 11-02-2024 Do you have difficul ty dressing or bathing Yes 11/02/2024 9:37 AM Dilcia Keyes RN Yes [facility] 11-02-2024 Because of a physica l, mental, or emotional condition, do you have difficulty doing errands alone such as visiting a physician's office or shopping Yes 11/02/2024 9:37 AM Dilcia Keyes RN Yes [facility] 06-05-2023 Functional status Ambulates [facility] Work Phone: 05-15-2023 Functional status Ambulates [facility] Work Phone: 05-01-2023 Functional status Ambulates [facility] Work Phone: 04-24-2023 Functional status Ambulates;Bath room Privilege [facility] Work Phone: 04-24-2023 Functional status Tolerates Activity Well [facility] Work Phone: Mental Status Date Assessment Result Facility 11-02-2024 Because of a physica l, mental, or emotional condition, do you have serious difficulty concentrating, remembering, or making decisions Yes 11/02/2024 9:37 AM Dilcia Keyes RN Yes [facility] 10-02-2023 Cognitive function Level Of Cons ciousness Awake;Alert;Appropriate;Fol lows Commands [facility] Work Phone: 06-05-2023 Cognitive function Voice/Name [facility] Work Phone: 06-04-2023 Cognitive function Appropriate;[facility] Work Phone: 05-15-2023 Cognitive function Voice/Name [facility] Work Phone: 04-30-2023 Cognitive function Voice/Name [facility] Work Phone: 04-25-2023 Cognitive function Appropriate;[facility] Work Phone: 04-24-2023 Cognitive function Appropriate;[facility] Work Phone: Clinical Notes 08-26-2017 to 02-21-2025 Telephone Encounter - Piero Rubin MD - 02/21/2025 8:34 PM EDTTelephone Encounter - Piero Rubin MD - 02/21/2025 8:34 PM EDTPatient Idania Atkins MA - 12/28/2024 1:14 PM EST Note Date & Type Note [facility] 02-21-2025 Telephone encounter Note The following approved medication requests have been transmitted electronically. Requested Prescriptions Signed Prescriptions Disp Refills finasteride (PROPECIA) 1 mg tablet 90 tablet 3 Sig: Take 1 tablet by mouth once daily. Authorizing Provider: PIERO RUBIN MD [facility] 02-21-2025 Miscellaneous Notes The following approved medication requests have been transmitted electronically. Requested Prescriptions Signed Prescriptions Disp Refills finasteride (PROPECIA) 1 mg tablet 90 tablet 3 Sig: Take 1 tablet by mouth once daily. Authorizing Provider: PIERO RUBIN MD documented in this encounter [facility] 01-16-2025 Telephone encounter Note Pt's son advised of results with verbalized understanding. Ralph Beverly LPN [facility] 01-16-2025 Miscellaneous Notes Pt's son advised of results with verbalized understanding. Ralph Beverly LPN Let patient/family know that repeat urine is negative for blood and no infection. Ines Chatterjee PA-C documented in this encounter [facility] 01-16-2025 Telephone encounter Note Let patient/family know that repeat urine is negative for blood and no infection. Ines Chatterjee PA-C [facility] 01-04-2025 Telephone encounter Note Patient carlos enrique Rondon returned call and went over results, notes from Ines MONROE with understanding. Aware orders in computer to complete in one week. [facility] 01-04-2025 Miscellaneous Notes Patient carlos enrique Rondon returned call and went over results, notes from Ines MONROE with understanding. Aware orders in computer to complete in one week. Left message for family to call back Mirna Parra MA Let patient/family know that Anastacio has RBC in his urine. Recommend repeat UA with urine culture in 1 week. The rest of his labs are stable. His blood counts have improved compared to October. documented in this encounter [facility] 01-04-2025 Telephone encounter Note Nissa with [facility] OT calling to request information regarding patient for continuity of care. Information given. Nissa also states pt's BP during OT visit this morning was 164/85, pulse 71. Asymptomatic. Pt residing at [facility] at this time and Nissa states she will report BP to facility nurse. Cherrie Qureshi, MICHAEL [facility] 01-04-2025 Miscellaneous Notes Nissa with [facility] OT calling to request information regarding patient for continuity of care. Information given. Nissa also states pt's BP during OT visit this morning was 164/85, pulse 71. Asymptomatic. Pt residing at [facility] at this time and Nissa states she will report BP to facility nurse. Cherrie Qureshi RN documented in this encounter [facility] 01-04-2025 Progress note Formatting of t his note might be different from the original. Left message for family to call back Mirna Parra MA [facility] 01-04-2025 Telephone encounter Note Let patient/family know that Anastacio has RBC in his urine. Recommend repeat UA with urine culture in 1 week. The rest of his labs are stable. His blood counts have improved compared to October. [facility] 01-03-2025 Instructions Ines Chatterjee PA-C - 01/03/2025 10:06 AM EST Screening schedule The following prevention plan is recommended: RSV Vaccine(1 - 1-dose 75+ series) Never done DTaP,Tdap,Td Vaccine(3 - Tdap) due on 06/21/2022 Covid-19 Vaccine(2023- season) due on 07/17/2024 Advance Directive Discussion due on 11/16/2024 WHAT YOU CAN DO TO PREVENT FALLS Many falls can be prevented. By making some changes, you can lower your chances of falling. Four things YOU can do to prevent falls for you* and your caregiver 1. Begin a regular exercise program Exercise is one of the most important ways to lower your chances of falling. It makes you stronger and helps you feel better. Exercises that improve balance and coordination (like Marcelo Chi) are the most helpful. Lack of exercise leads to weakness and increases your chances of falling. Ask your doctor or health care provider about the best type of exercise program for you. 2. Have your health care provider review your medicines Have your doctor or pharmacist review all the medicines you take, even [id number] medicines. As you get older, the way medicines work in your body can change. Some medicines, or combinations of medicines, can make you sleepy or dizzy and can cause you to fall. 3. Have your vision checked Have your eyes checked by an eye doctor at least once a year. You may be wearing the wrong glasses or have a condition like glaucoma or cataracts that limits your vision. Poor vision can increase your chances of falling. 4. Make your home safer About half of all falls happen at home. To make your home safer: Remove things you can trip over (like papers, books, clothes, and shoes) from stairs and places where you walk. Remove small throw rugs or use double-sided tape to keep the rugs from slipping. Keep items you use often in cabinets you can reach easily without using a step stool. Have grab bars put in next to your toilet and in the tub or shower. Use non-slip mats in the bathtub and on shower floors. Improve the lighting in your home. As you get older, you need brighter lights to see well. Hang light-weight curtains or shades to reduce glare. Have handrails and lights put in on all staircases. Wear shoes both inside and outside the house. Avoid going barefoot or wearing slippers. For more information, contact: Centers for Disease Control and Prevention www.cdc.gov/injury * This information may not apply if you have certain medical conditions. documented in this encounter [facility] 01-03-2025 Note HNO ID: [id number] Author: INES CHATTERJEE PA-C Service: ? Author Type: Physician Crown Blocker Type: Progress Notes Filed: 01/03/2025 11:15 Note Text: Anastacio Patel is a 85 year old male here for a Medicare wellness visit. Medicare Health Risk Assessment General Health Poor Exercise: Minutes/Day walking Exercise: Days/Week 7 Alcohol: Daily Use no Alcohol: Drinks/Day 0 Alcohol: 6 or more drinks never Feel off balance no Concerns: Teeth/Dentures no Concerns: Sexual function no Troubled by feelings no Frequency: Eating healthy diet sometimes ADLs requiring help No- help with driving Safety precautions in home/vehicle yes Smoke, vape, chews tobacco no Difficulty hearing yes Difficulty seeing no Current Providers Specialists: I have reviewed specialist-related care of the patient in the medical record. Medical/Family history review Reviewed and updated problem list, medical/surgical/family/social history, medications, and allergies. Opioid use review Opioid Medications (last 90 days) 11/09/2024 00:00 11/28/2024 23:59 12/20/2024 23:59 Opioid Medications buprenorphine 1 Patch 1/WK TRANSDERM. 1 Patch 1/WK TRANSDERM. -Rx End buprenorphine 2 Patch 1/WK TRANSDERM. -Rx End 2 Patch 1/WK TRANSDERM. - Details Outpatient prescription Medication marked as long-term Anxiety/Depression screening PHQ-2 Score: 0 (Lower risk for depression) Recommendation: no further intervention at this time Cognitive screening Cognitive screening reviewed and Patient has known cognitive impairment. Functional Observation Was the patient's Timed Up AND Go test unsteady or >= 12 seconds? No Advance Care Planning Surrogate decision maker and/or advance care plan documented Measurements BP 138/80 (BP Site: Left Arm, BP Position: Sitting, BP Cuff Size: Regular Adult) Pulse 69 Temp 36.4 ?C (97.6 ?F) Resp 16 Wt 47.8 kg (105 lb 6 oz) SpO2 96% BMI 16.02 kg/m? Vision Screening: Follows with optometry/ophthalmology Assessment/Plan Medicare annual wellness visit, subsequent (Z00.00) - Counseled on healthy diet and regular exercise - Fall avoidance information provided - Personalized prevention plan provided Chief Complaint Patient presents with: Medicare Wellness Exam HPI Anastacio Patel is a 85 year old male who presents here today for extensive exam. 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 Denies concerns for me today. Still at [place]. States he's getting some therapy due to recent hip fracture and surgery. Past medical history, appointments, medications, allergies reviewed. 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 Previous Surgical History PAST SURGICAL HISTORY Procedure Laterality Date APPENDECTOMY COLONOSCOPY FLX DX W/COLLJ SPEC WHEN PFRMD 03/24/2006 Repeat in COLONOSCOPY FLX DX W/COLLJ SPEC WHEN PFRMD 06/09/2016 Colonoscopy ESOPHAGOGASTRODUODENOSCOPY TRANSORAL DIAGNOSTIC 11/02/2017 EGD HEMORRHOIDECTOMY NTRNL AND XTRNL 1 COLUMN/GROUP HIP SURGERY HX Left 10/28/2024 SPLENECTOMY TOTAL SEPARATE PROCEDURE Splenectomy Family History FAMILY HISTORY Problem Relation Age of Onset Alzheimer's Disease Father Cancer Son Testicular cancer(2004). Multiple Sclerosis Brother 01/2017, age 76. Patient Allergies ALLERGIES No Known Allergies Current Medications Current Outpatient Medications on File Prior to Visit Medication Sig donepezil (ARICEPT) 10 mg tablet Take 1 tablet by mouth daily at bedtime. DULoxetine (CYMBALTA) 60 mg capsule Take 1 capsule by mouth once daily. tiZANidine (ZANAFLEX) 4 mg tablet Take 1 tablet by mouth every 8 hours as needed. gabapentin (NEURONTIN) 300 mg capsule Take 1 capsule by mouth two times a day for 1 day. polyethylene glycol 3350 17 gram packet Take 1 Packet by mouth once daily. Dissolve dose in 4 - 8 ounces of liquid and take as directed. senna-docusate (SENNA-S) 8.6-50 mg per tablet Take 1 tablet by mouth two times a day. melatonin 3 mg tablet Take 2 tablets by mout (more content not included)... [facility] 01-03-2025 History of Presen t illness Narrative Images from the original note were not included. Anastacio Patel is a 85 year old male here for a Medicare wellness visit. Medicare Health Risk Assessment General Health Poor Exercise: Minutes/Day walking Exercise: Days/Week 7 Alcohol: Daily Use no Alcohol: Drinks/Day 0 Alcohol: 6 or more drinks never Feel off balance no Concerns: Teeth/Dentures no Concerns: Sexual function no Troubled by feelings no Frequency: Eating healthy diet sometimes ADLs requiring help No- help with driving Safety precautions in home/vehicle yes Smoke, vape, chews tobacco no Difficulty hearing yes Difficulty seeing no Current Providers Specialists: I have reviewed specialist-related care of the patient in the medical record. Medical/Family history review Reviewed and updated problem list, medical/surgical/family/social history, medications, and allergies. Opioid use review Opioid Medications (last 90 days) 11/09/2024 00:00 11/28/2024 23:59 12/20/2024 23:59 Opioid Medications buprenorphine 1 Patch 1/WK TRANSDERM. 1 Patch 1/WK TRANSDERM. -Rx End buprenorphine 2 Patch 1/WK TRANSDERM. -Rx End 2 Patch 1/WK TRANSDERM. - Details Outpatient prescription Medication marked as long-term Anxiety/Depression screening PHQ-2 Score: 0 (Lower risk for depression) Recommendation: no further intervention at this time Cognitive screening Cognitive screening reviewed and Patient has known cognitive impairment. Functional Observation Was the patient's Timed Up & Go test unsteady or >= 12 seconds? No Advance Care Planning Surrogate decision maker and/or advance care plan documented Measurements BP 138/80 (BP Site: Left Arm, BP Position: Sitting, BP Cuff Size: Regular Adult) Pulse 69 Temp 36.4 C (97.6 F) Resp 16 Wt 47.8 kg (105 lb 6 oz) SpO2 96% BMI 16.02 kg/m Vision Screening: Follows with optometry/ophthalmology Assessment/Plan Medicare annual wellness visit, subsequent (Z00.00) - Counseled on healthy diet and regular exercise - Fall avoidance information provided - Personalized prevention plan provided Chief Complaint Patient presents with: Medicare Wellness Exam HPI Anastacio Patel is a 85 year old male who presents here today for extensive exam. 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 Denies concerns for me today. Still at [place]. States he's getting some therapy due to recent hip fracture and surgery. Past medical history, appointments, medications, allergies reviewed. 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 Previous Surgical History PAST SURGICAL HISTORY Procedure Laterality Date APPENDECTOMY COLONOSCOPY FLX DX W/COLLJ SPEC WHEN PFRMD 03/24/2006 Repeat in COLONOSCOPY FLX DX W/COLLJ SPEC WHEN PFRMD 06/09/2016 Colonoscopy ESOPHAGOGASTRODUODENOSCOPY TRANSORAL DIAGNOSTIC 11/02/2017 EGD HEMORRHOIDECTOMY NTRNL & XTRNL 1 COLUMN/GROUP HIP SURGERY HX Left 10/28/2024 SPLENECTOMY TOTAL SEPARATE PROCEDURE Splenectomy Family History FAMILY HISTORY Problem Relation Age of Onset Alzheimer's Disease Father Cancer Son Testicular cancer(2004). Multiple Sclerosis Brother 01/2017, age 76. Patient Allergies ALLERGIES No Known Allergies Current Medications Current Outpatient Medications on File Prior to Visit Medication Sig donepezil (ARICEPT) 10 mg tablet Take 1 tablet by mouth daily at bedtime. DULoxetine (CYMBALTA) 60 mg capsule Take 1 capsule by mouth once daily. tiZANidine (ZANAFLEX) 4 mg tablet Take 1 tablet by mouth every 8 hours as needed. gabapentin (NEURONTIN) 300 mg capsule Take 1 capsule by mouth two times a day for 1 day. polyethylene glycol 3350 17 gram packet Take 1 Packet by mouth once daily. Dissolve dose in 4 - 8 ounces of liquid and take as directed. senna-docusate (SENNA-S) 8.6-50 mg per tablet Take 1 tablet by mouth two times a day. melatonin 3 mg tablet Take 2 tablets by mouth at bedtime as needed for insomnia. finasteride (PROPECIA) 1 mg tablet Take 1 tablet by mouth once daily. Ipratropium [place] (ATROVENT) 21 mcg (0.03 %) nasal spray Use 2 Sprays in the nose every 12 hours. acetaminophen (TYLENOL EXTRA STRENGTH) 500 mg tablet Take 2 tablets by mouth every 8 hours as needed for pain. loperamide HCl (IMODIUM) 2 mg tab Take 1 tablet by mouth as needed. For loose stools at [place] hydrocortisone 2.5 % cream Apply 1 application to affected area twice daily. APPLY TO AFFECTED AREAS meclizine (ANTIVERT) 25 mg tab Take 1 tablet by mouth every 6 hours as needed (dizziness). DAILY MULTIVITAMIN TAB Take one(1) tablet daily. buprenorphine (BUTRANS) 10 mcg/hour Apply 1 Patch as directed one time a week for 1 day. buprenorphine (BUTRANS) 5 mcg/hour Apply 2 Patches as directed one time a week for 1 day. No current facility-administered medications on file prior to visit. Social History Social History Tobacco Use Smoking status: Former Current packs/day: 0.00 Average packs/day: 0.3 packs/day for 30.0 years (7.5 ttl pk-yrs) Types: Cigarettes Start date: 03/15/1960 Quit date: 03/15/1990 Years since quittin.8 Smokeless tobacco: Never Tobacco comments: Quit smoking in his 50s. Vaping Use Vaping status: Never Used Substance Use Topics Alcohol use: Not Currently Drug use: No Review of Symptoms REVIEW OF SYSTEMS GENERAL: No weight loss, malaise or fevers HEENT: No changes in hearing or vision, no nose bleeds or other nasal problems NECK: Negative for lumps, goiter, pain and significant neck swelling RESPIRATORY: Negative for cough, hemoptysis, wheezing, COPD, dyspnea or shortness of breath CARDIOVASCULAR: Negative for chest pain, leg swelling, CHF or palpitations GI: Negative for abdominal discomfort, blood in stools or black stools, change in bowel habit, heart burn, nausea, vomiting : No history of dysuria, frequency or incontinence MUSCULOSKELETAL: chronic SKIN: Negative for lesions, rash, and itching PSYCH: Negative for sleep disturbance, mood disorder and recent psychosocial stressors HEMATOLOGY/LYMPHOLOGY: Negative for prolonged bleeding, bruising easily or swollen nodes ENDOCRINE: Negative for cold or heat intolerance, polyuria, polydipsia and goiter NEURO: No history of headaches, syncope, paralysis, seizures or tremors EXAM: BP 138/80 (BP Site: Left Arm, BP Position: Sitting, BP Cuff Size: Regular Adult) Pulse 69 Temp 36.4 C (97.6 F) Resp 16 Wt 47.8 kg (105 lb 6 oz) SpO2 96% BMI 16.02 kg/m General Appearance: Well appearing, alert, in no acute distress, well-hydrated, well nourished. and Thin. Skin: deferred. Head: Normocephalic, no masses, lesions, tenderness or abnormalities. Eyes: Anicteric sclera. Pupils are equally round and reactive to light. Extraocular movements are intact. . Ears: External ears normal, canals clear. Nose/Sinuses: Nares normal, septum midline, mucosa normal, no drainage or sinus tenderness. Oropharynx: Lips, mucosa, and tongue normal, teeth and gums normal, oropharynx normal. Neck: Supple, no adenopathy; thyroid symmetric, normal size, no bruits. Lungs: Lungs clear to auscultation. No wheezing, rhonchi, rales.. Heart: RRR with soft murmur noted. without gallop, or rubs. No ectopy. Abdomen: Normal abdominal exam, Abdomen soft, non-tender. Bowel sounds normal. No masses, organomegaly. Extremities: No deformities, edema, skin discoloration, clubbing or cyanosis. Good capillary refill. . Peripheral Pulses: Normal. Neurologic: Sensation grossly intact.. ambulating with walker [place] List RSV Vaccine(1 - 1-dose 75+ series) Never done DTaP,Tdap,Td Vaccine(3 - Tdap) due on 06/21/2022 Covid-19 Vaccine(2023- season) due on 07/17/2024 Advance Directive Discussion due on 11/16/2024 Diabetes Screening due on 11/02/2027 Influenza Vaccine Completed Shingrix Vaccine Completed Pneumococcal Vaccine: 50+ Completed Data reviewed N/a ASSESSMENT/PLAN: 1. Medicare annual wellness visit, subsequent - ICD9: V70.0, ICD10: Z00.00 (primary diagnosis) - Counseled on healthy diet and regular exercise - Follow up for annual exam in one year 2. Advance directive discussed with patient - ICD9: V65.49, ICD10: Z71.89 Up to date in records 3. Benign hypertension - ICD9: 401.1, ICD10: I10 - Controlled - Continue current medications - Recommend home blood pressure monitoring, to bring results to next visit - Encouraged sodium restriction, DASH or Mediterranean diet - Recommend regular aerobic exercise - LIPID PANEL, NONFASTING - COMPREHENSIVE METABOLIC PANEL - URINALYSIS, WITH MICROSCOPIC 4. Bronchiectasis without complication (HCC) - ICD9: 494.0, ICD10: J47.9 No new concerns No longer seeing pulm Cont current management 5. Dementia, unspecified dementia severity, unspecified dementia type, unspecified whether behavioral, psychotic, or mood disturbance or anxiety (HCC) - ICD9: 294.20, ICD10: F03.90 Overall stable Continue with neuro 6. Frequent falls - ICD9: V15.88, ICD10: R29.6 Cont with Physical Therapy and walker 7. Leukocytosis, unspecified type - ICD9: 288.60, ICD10: D72.829 - COMPLETE BLOOD COUNT AND DIFFERENTIAL 8. Multiple lung nodules - ICD9: 793.19, ICD10: R91.8 Patient saw pulm. Declines further eval 9. Valvular heart disease - ICD9: 424.90, ICD10: I38 Asymptomatic. Will monitor 10. Osteoarthritis of spine with radiculopathy, lumbar region - ICD9: 721.3, ICD10: M47.26 Cont with current managment 11. T12 compression fracture, initial encounter (HCC) - ICD9: 805.2, ICD10: S22.080A Cont current management Seeing pain med 12. Left displaced femoral neck fracture (HCC) - ICD9: 820.8, ICD10: S72.002A Patient seeing ortho. Cont PT 13. Closed wedge compression fracture of T12 vertebra with routine healing, subsequent encounter - ICD9: V54.17, ICD10: S22.080D As above 14. Living will on file at physician's office - ICD9: V49.89, ICD10: Z78.9 Ines Chatterjee PA-C I spent a total of 40 minutes on the date of the service which included preparing to see the patient, [id number] patient care, completing clinical documentation, obtaining and/or reviewing separately obtained history, performing a medically appropriate examination, counseling and educating the patient/family/caregiver, ordering medications, tests, or procedures, and communicating results to the patient/family/caregiver. documented in this encounter [facility] 12-28-2024 Note HNO ID: [id number] Author: IDANIA MCDANIELS MA Service: ? Author Type: Custom Feed Corn Operator Type: Progress Notes Filed: 12/28/2024 13:14 Note Text: Scan on 12/26/2024 9:56 PM by Candida Pablo PA-C: MRI Scan on 12/26/2024 10:36 PM by Candida Pablo PA-C: CT Scan Idania Mcdaniels MA [facility] 12-28-2024 History of Presen t illness Narrative Scan on 12/26/2024 9:56 PM by Candida Pablo PA-C: MRI Scan on 12/26/2024 10:36 PM by Candida Pablo PA-C: CT Scan Idania Mcdaniels MA documented in this encounter [facility] 12-20-2024 Note HNO ID: [id number] Author: PIERO RUBIN MD Service: ? Author Type: Physician Type: Progress Notes Filed: 12/20/2024 19:59 Note Text: Patient's home health 485 form / care plan for certification period 11/28/2024 to 01/26/2025 reviewed and signed. Relevant medical records were reviewed. Changes were communicated to home health agency [facility] 12-20-2024 History of Presen t illness Narrative Patient's home health 485 form / care plan for certification period 11/28/2024 to 01/26/2025 reviewed and signed. Relevant medical records were reviewed. Changes were communicated to home health agency documented in this encounter [facility] 12-19-2024 Telephone encounter Note Noted. [facility] 12-19-2024 Miscellaneous Notes Noted. [facility]- calling in an OT POC - will extend patient's visits to 1 more x this week, 2 x's next week, and 1 x the following week. Does not need a call back unless Dr. Rubin disagrees. documented in this encounter [facility] 12-19-2024 Telephone encounter Note [facility]- calling in an OT POC - will extend patient's visits to 1 more x this week, 2 x's next week, and 1 x the following week. Does not need a call back unless Dr. Rubin disagrees. [facility] 12-14-2024 Telephone encounter Note Lynnette with [employer] calling to have last fax they sent to Dr. Rubin 11/29/24 which he signed and it was faxed back to them, get a copy re-faxed back to [facility] because they accidentally shredded the copy they got back. FAX: [phone]. Done. Phil Billy LPN [facility] 12-14-2024 Miscellaneous Notes Lynnette with [facility] [employer] calling to have last fax they sent to Dr. Rubin 11/29/24 which he signed and it was faxed back to them, get a copy re-faxed back to [employer] because they accidentally shredded the copy they got back. FAX: [phone]. Done. Phil Billy LPN documented in this encounter [facility] 12-07-2024 Note HNO ID: [id number] Author: PIERO RUBIN MD Service: ? Author Type: Physician Type: Progress Notes Filed: 12/07/2024 11:45 Note Text: Patient's home health 485 form / care plan for certification period 11/27/2024 to 01/25/2025 reviewed and signed. Relevant medical records were reviewed. No changes were indicated [facility] 12-07-2024 History of Presen t illness Narrative Patient's home health 485 form / care plan for certification period 11/27/2024 to 01/25/2025 reviewed and signed. Relevant medical records were reviewed. No changes were indicated documented in this encounter [facility] 11-30-2024 Telephone encounter Note Noted. [facility] 11-30-2024 Miscellaneous Notes Noted. Nissa with [facility], OT alejandra to let you know the plan of care. They will see pt 1 time a week for 4 weeks and focus on ADLs nd equipment training. No call back if provider agrees with plan of care. Phil Billy LPN documented in this encounter [facility] 11-30-2024 Telephone encounter Note Nissa with [facility], OT clling to let you know the plan of care. They will see pt 1 time a week for 4 weeks and focus on ADLs nd equipment training. No call back if provider agrees with plan of care. Phil Billy LPN [facility] 11-28-2024 History of Presen t illness Narrative Images from the original note were not included. ORTHOPAEDIC SURGERY OFFICE NOTE: SURGERY DATE: 1) 10/28/2024 SURGERY: 1) Insertion of a Left Hip Hemiarthroplasty for a Left Femoral Neck Fracture CHIEF COMPLAINT: Routine Post-Operative Follow-Up HISTORY OF PRESENT ILLNESS: Anastacio Patel is an 84 year old male who presents for routine post-operative follow-up from the above listed operation (see "Surgery" above for full details). At today's appointment, the patient reports doing well. The patient endorses controlled pain to the left hip. The patient is ambulatory with gait aids. The patient denies fevers and chills. The patient has no additional orthopaedic traumatic complaints at this time. Reviewed nursing note and current pain scale. 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 PAST SURGICAL HISTORY Procedure Laterality Date APPENDECTOMY COLONOSCOPY FLX DX W/COLLJ SPEC WHEN PFRMD 03/24/06 Repeat in COLONOSCOPY FLX DX W/COLLJ SPEC WHEN PFRMD 06/09/16 Colonoscopy ESOPHAGOGASTRODUODENOSCOPY TRANSORAL DIAGNOSTIC 11/02/2017 EGD HEMORRHOIDECTOMY NTRNL & XTRNL 1 COLUMN/GROUP SPLENECTOMY TOTAL SEPARATE PROCEDURE Splenectomy FAMILY HISTORY Problem Relation Age of Onset Alzheimer's Disease Father Cancer Son Testicular cancer(2004). Multiple Sclerosis Brother 01/2017, age 76. Social History Tobacco Use Smoking status: Former Current packs/day: 0.00 Average packs/day: 0.3 packs/day for 30.0 years (7.5 ttl pk-yrs) Types: Cigarettes Start date: 03/15/1960 Quit date: 03/15/1990 Years since quittin.7 Smokeless tobacco: Never Tobacco comments: Quit smoking in his 50s. Vaping Use Vaping status: Never Used Substance Use Topics Alcohol use: Not Currently Drug use: No MEDICATIONS: Current Outpatient Medications Medication Sig gabapentin (NEURONTIN) 300 mg capsule Take 1 capsule by mouth two times a day for 1 day. polyethylene glycol 3350 17 gram packet Take 1 Packet by mouth once daily. Dissolve dose in 4 - 8 ounces of liquid and take as directed. senna-docusate (SENNA-S) 8.6-50 mg per tablet Take 1 tablet by mouth two times a day. melatonin 3 mg tablet Take 2 tablets by mouth at bedtime as needed for insomnia. buprenorphine (BUTRANS) 10 mcg/hour Apply 1 Patch as directed one time a week for 1 day. buprenorphine (BUTRANS) 5 mcg/hour Apply 2 Patches as directed one time a week for 1 day. finasteride (PROPECIA) 1 mg tablet Take 1 tablet by mouth once daily. donepezil (ARICEPT) 10 mg tablet Take 1 tablet by mouth daily at bedtime. Per Neuro: Dr. Gentile. Ipratropium [place] (ATROVENT) 21 mcg (0.03 %) nasal spray Use 2 Sprays in the nose every 12 hours. acetaminophen (TYLENOL EXTRA STRENGTH) 500 mg tablet Take 2 tablets by mouth every 8 hours as needed for pain. loperamide HCl (IMODIUM) 2 mg tab Take 1 tablet by mouth as needed. For loose stools at [place] hydrocortisone 2.5 % cream Apply 1 application to affected area twice daily. APPLY TO AFFECTED AREAS meclizine (ANTIVERT) 25 mg tab Take 1 tablet by mouth every 6 hours as needed (dizziness). DAILY MULTIVITAMIN TAB Take one(1) tablet daily. No current facility-administered medications for this visit. ALLERGIES: ALLERGIES No Known Allergies PHYSICAL EXAMINATION: Resp 20 Ht 5' 8" (1.73m) Wt 112 lb (50.8kg) BMI 17.03 kg/(m^2). General Appearance: No acute distress Skin: See Extremity exam below for full details Left Lower Extremity: Healed surgical incision to the left hip. There is no romy-incisional erythema nor drainage. Compartments of the thigh and leg are soft and compressible. The patient has active hip flexion, hip extension, knee flexion, knee extension, ankle dorsiflexion, ankle plantarflexion and extensor hallucis longus motor function. Sensation intact to light touch in the sural, saphenous, superficial peroneal, deep peroneal and tibial nerve distributions. Brisk capillary refill to the digits of the foot. IMAGES: Recent Results (from the past 36 hour(s)) XR PELVIS 1V AP Narrative AP pelvis x-ray demonstrates a maintained left hip hemiarthroplasty without prosthetic dislocation and periprosthetic fracture. ASSESSMENT AND PLAN: 1. Closed fracture of left hip requiring operative repair, initial encounter ([facility]) - ICD9: 820.8, ICD10: S72.002A (primary diagnosis) 2. Status post hip hemiarthroplasty - ICD9: V43.64, ICD10: Z96.649 -AP pelvis x-ray ordered, obtained and independently interpreted (see image interpretation above for full details) -Weight-bearing as tolerated with the left lower extremity with posterior hip precautions -Ambulation assistance devices as needed for safe mobilization -Pain control with NSAIDs and acetaminophen as needed -Ice and elevation of the left lower extremity for pain control and swelling reduction -Physical therapy/home exercises for continued rehabilitation -The patient will follow-up in 6 months or sooner if needed OARRS reviewed All patient and family questions and concerns were answered and addressed Matt Michael MD Orthopaedic Trauma Surgery 11/29/2024 2:15 PM documented in this encounter [facility] 11-28-2024 Note HNO ID: [id number] Author: MATT MICHAEL MD Service: ? Author Type: Physician Type: Progress Notes Filed: 11/29/2024 14:16 Note Text: ORTHOPAEDIC SURGERY OFFICE NOTE: SURGERY DATE: 1) 10/28/2024 SURGERY: 1) Insertion of a Left Hip Hemiarthroplasty for a Left Femoral Neck Fracture CHIEF COMPLAINT: Routine Post-Operative Follow-Up HISTORY OF PRESENT ILLNESS: Anastacio Patel is an 84 year old male who presents for routine post-operative follow-up from the above listed operation (see "Surgery" above for full details). At today's appointment, the patient reports doing well. The patient endorses controlled pain to the left hip. The patient is ambulatory with gait aids. The patient denies fevers and chills. The patient has no additional orthopaedic traumatic complaints at this time. Reviewed nursing note and current pain scale. 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 PAST SURGICAL HISTORY Procedure Laterality Date APPENDECTOMY COLONOSCOPY FLX DX W/COLLJ SPEC WHEN PFRMD 03/24/06 Repeat in COLONOSCOPY FLX DX W/COLLJ SPEC WHEN PFRMD 06/09/16 Colonoscopy ESOPHAGOGASTRODUODENOSCOPY TRANSORAL DIAGNOSTIC 11/02/2017 EGD HEMORRHOIDECTOMY NTRNL AND XTRNL 1 COLUMN/GROUP SPLENECTOMY TOTAL SEPARATE PROCEDURE Splenectomy FAMILY HISTORY Problem Relation Age of Onset Alzheimer's Disease Father Cancer Son Testicular cancer(2004). Multiple Sclerosis Brother 01/2017, age 76. Social History Tobacco Use Smoking status: Former Current packs/day: 0.00 Average packs/day: 0.3 packs/day for 30.0 years (7.5 ttl pk-yrs) Types: Cigarettes Start date: 03/15/1960 Quit date: 03/15/1990 Years since quittin.7 Smokeless tobacco: Never Tobacco comments: Quit smoking in his 50s. Vaping Use Vaping status: Never Used Substance Use Topics Alcohol use: Not Currently Drug use: No MEDICATIONS: Current Outpatient Medications Medication Sig gabapentin (NEURONTIN) 300 mg capsule Take 1 capsule by mouth two times a day for 1 day. polyethylene glycol 3350 17 gram packet Take 1 Packet by mouth once daily. Dissolve dose in 4 - 8 ounces of liquid and take as directed. senna-docusate (SENNA-S) 8.6-50 mg per tablet Take 1 tablet by mouth two times a day. melatonin 3 mg tablet Take 2 tablets by mouth at bedtime as needed for insomnia. buprenorphine (BUTRANS) 10 mcg/hour Apply 1 Patch as directed one time a week for 1 day. buprenorphine (BUTRANS) 5 mcg/hour Apply 2 Patches as directed one time a week for 1 day. finasteride (PROPECIA) 1 mg tablet Take 1 tablet by mouth once daily. donepezil (ARICEPT) 10 mg tablet Take 1 tablet by mouth daily at bedtime. Per Neuro: Dr. Gentile. Ipratropium [place] (ATROVENT) 21 mcg (0.03 %) nasal spray Use 2 Sprays in the nose every 12 hours. acetaminophen (TYLENOL EXTRA STRENGTH) 500 mg tablet Take 2 tablets by mouth every 8 hours as needed for pain. loperamide HCl (IMODIUM) 2 mg tab Take 1 tablet by mouth as needed. For loose stools at [place] hydrocortisone 2.5 % cream Apply 1 application to affected area twice daily. APPLY TO AFFECTED AREAS meclizine (ANTIVERT) 25 mg tab Take 1 tablet by mouth every 6 hours as needed (dizziness). DAILY MULTIVITAMIN TAB Take one(1) tablet daily. No current facility-administered medications for this visit. ALLERGIES: ALLERGIES No Known Allergies PHYSICAL EXAMINATION: Resp 20 Ht 5' 8" (1.73m) Wt 112 lb (50.8kg) BMI 17.03 kg/(m2). General Appearance: No acute distress Skin: See Extremity exam below for full details Left Lower Extremity: Healed surgical incision to the left hip. There is no romy-incisional erythema nor drainage. Compartments of the thigh and leg are soft and compressible. The patient has active hip flexion, hip extension, knee flexion, knee extension, ankle dorsiflexion, ankle plantarflexion and extensor hallucis longus motor function. Sensation intact to light touch in the sural, saphenous, superficial peroneal, deep peroneal and tibial nerve distributions. Brisk capillary refill to the digits of the foot. IMAGES: Recent Results (from the past 36 hour(s)) XR PELVIS 1V AP Narrativ (more content not included)... [facility] 11-23-2024 Telephone encounter Note Yes I will follow. [facility] 11-23-2024 Miscellaneous Notes Yes I will follow. Ann-Marie from [facility] calls and states that patient was discharged from [facility] and is back at [place]. Ann-Marie asking if provider willing to follow patient with orders for physical therapy and occupational therapy. If agreeable please give Ann-Marie a call back [phone] Thank you, Kellie Eason RN documented in this encounter [facility] 11-23-2024 Telephone encounter Note Ann-Marie from [facility] calls and states that patient was discharged from [place] and is back at [place]. Ann-Marie asking if provider willing to follow patient with orders for physical therapy and occupational therapy. If agreeable please give Ann-Marie a call back [phone] Thank you, Kellie Eason RN [facility] 11-22-2024 Note HNO ID: [id number] Author: HEATHER MÁRQUEZ MA Service: ? Author Type: Custom Feed Corn Operator Type: Progress Notes Filed: 11/22/2024 09:09 Note Text: POPULATION HEALTH NAVIGATION OUTREACH Action/FYI Patient scheduled for AWV. Notes added to add discuss and close HCC gaps. DId not contact the patient. Reason for Outreach Care Gap/HCC or Scheduling Wellness Visits Care Gaps due: Medicare Annual Wellness Visit Patient Contacted: Unable or unnecessary to reach patient: HCC related Patient already scheduled Updated appointment notes Navigation Signature: Heather Márquez MA November 22, 2024 9:08 AM [facility] 11-22-2024 History of Presen t illness Narrative POPULATION HEALTH NAVIGATION OUTREACH Action/FYI Patient scheduled for AWV. Notes added to add discuss and close HCC gaps. DId not contact the patient. Reason for Outreach Care Gap/HCC or Scheduling Wellness Visits Care Gaps due: Medicare Annual Wellness Visit Patient Contacted: Unable or unnecessary to reach patient: HCC related Patient already scheduled Updated appointment notes Navigation Signature: Heather Márquez MA November 22, 2024 9:08 AM documented in this encounter [facility] 11-22-2024 Note Patient Outreach (NE TNAV) ANASTACIO PATEL ([id number]) 1940 M Date Time Provider Department 11/22/24 HEATHER MÁRQUEZ During your visit today, we recorded the following information about you: Heather Márquez MA 11/22/2024 9:09 AM Signed POPULATION HEALTH NAVIGATION OUTREACH Action/FYI Patient scheduled for AWV. Notes added to add discuss and close HCC gaps. DId not contact the patient. Reason for Outreach Care Gap/HCC or Scheduling Wellness Visits Care Gaps due: Medicare Annual Wellness Visit Patient Contacted: Unable or unnecessary to reach patient: HCC related Patient already scheduled Updated appointment notes Navigation Signature: Heather Márquez MA November 22, 2024 9:08 AM Allergies As of Date: 11/22/2024 (No Known Allergies) Date Reviewed: 11/02/2024 Reviewed by: Dilcia Roth RN - Fully Assessed Reason for Visit: Population Health Navigation Outreach [3910] Cmt: [employer] Prescriptions as of 11/22/2024 - gabapentin (NEURONTIN) 300 mg capsule Take 1 capsule by mouth two times a day for 1 day. - polyethylene glycol 3350 17 gram packet Take 1 Packet by mouth once daily. Dissolve dose in 4 - 8 ounces of liquid and take as directed. - senna-docusate (SENNA-S) 8.6-50 mg per tablet Take 1 tablet by mouth two times a day. - melatonin 3 mg tablet Take 2 tablets by mouth at bedtime as needed for insomnia. - buprenorphine (BUTRANS) 10 mcg/hour Apply 1 Patch as directed one time a week for 1 day. - buprenorphine (BUTRANS) 5 mcg/hour Apply 2 Patches as directed one time a week for 1 day. - finasteride (PROPECIA) 1 mg tablet Take 1 tablet by mouth once daily. - donepezil (ARICEPT) 10 mg tablet Take 1 tablet by mouth daily at bedtime. Per Neuro: Dr. Gentile. - Ipratropium [place] (ATROVENT) 21 mcg (0.03 %) nasal spray Use 2 Sprays in the nose every 12 hours. - acetaminophen (TYLENOL EXTRA STRENGTH) 500 mg tablet Take 2 tablets by mouth every 8 hours as needed for pain. - loperamide HCl (IMODIUM) 2 mg tab Take 1 tablet by mouth as needed. For loose stools at [place] - hydrocortisone 2.5 % cream Apply 1 application to affected area twice daily. APPLY TO AFFECTED AREAS - meclizine (ANTIVERT) 25 mg tab Take 1 tablet by mouth every 6 hours as needed (dizziness). - DAILY MULTIVITAMIN TAB Take one(1) tablet daily. 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] 04/21/2016 Benign tumor of floor of mouth [D10.2] 04/21/2016 Microcytic anemia [D50.9] 08/26/2017 07/25/2020 Benign hypertension [I10] 12/30/2017 Osteoarthritis of spine with radiculopathy, lum*05/04/2018 Macrocytic anemia [D53.9] 07/25/2020 Medicare annual wellness visit, subsequent [Z00*08/23/2021 Living will on file at physician's office [Z78.*08/25/2022 Advance directive discussed with patient [Z71.8*08/25/2022 Abnormal radionuclide bone scan [R94.8] 06/29/2023 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, M*07/01/2023 T12 compression fracture, initial encounter (HC*07/14/2023 Dementia (HCC) [F03.90] 10/26/2023 History of recurrent TIAs [Z86.73] 12/14/2023 Bronchiectasis without complication (HCC) [J47.*12/25/2023 Valvular heart disease [I38] 12/25/2023 Risk for falls [Z91.81] 03/11/2024 Closed wedge compression fracture of T12 verteb*10/28/2024 S/p left hip fracture [Z87.81] 10/28/2024 Delirium [R41.0] 10/28/2024 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] 10/28/2024 Frequent falls [R29.6] 10/28/2024 Acute pain [R52] 10/28/2024 Other chronic pain [G89.29] 10/28/2024 Encounter for pain management [R52] 10/28/2024 Left displaced femoral neck fracture (HCC) [S72*10/28/2024 Leukocytosis [D72.829] 10/31/2024 Elevated serum creatinine [R79.89] 11/01/2024 Encounter Status:Closed by HEATHER MÁRQUEZ on 11/22/24 [facility] 11-02-2024 Note HNO ID: [id number] Author: GEETA NEWELL RN Service: Care Management Author Type: Registered Nurse Type: Care Mgt Progress Note Filed: 11/02/2024 11:35 Note Text: CARE MANAGEMENT DISCHARGE NOTE SERVICE DATE: November 02, 2024 SERVICE TIME: 11:32 AM Admission Date: 10/28/2024 LOS: 5 days Discharge Arrangement Discharge Arrangement: Care Home Facility Was an expedited discharge program used?: No Provider Name: Ricki Leigh Caregiver Assessment Caregiver is ready, willing and able to meet the patient's needs as recommended by the inter-professional team: Yes Name of Caregiver: Ricki Leigh Transportation Arrangements Transportation Arrangements: Ambulance Transportation Agency and Phone #:: [facility] ( [facility] ) [phone] / [phone] Date of Trip: 11/02/24 Time of Trip: 1000 Type of Service: BLS Non-emergency Is Patient Medicaid Pending?: No Was transportation financial coverage discussed with family?: Patient;Family Guard Supervisor Location: [facility] Destination: [facility] Financial Care Management Responsibility: None Handoff Communication: Handoff to: Other Caregiver Other Caregiver Name/Phone: [place] [facility]/ Bedside RN Spoke with patient at the bedside and patient's son Alcno via phone ([phone]). Discharge today. Discharge orders complete. Plan is for SNF placement at discharge. Ricki Marieor is able to accept patient. Insurance authorization obtained. Transport set for 1000. [place] [facility] and bedside RN notified. SIGNATURE: Geeta Newell RN PATIENT NAME: Anastacio Patel DATE: November 02, 2024 TIME: 11:32 AM [facility] 11-01-2024 Note HNO ID: [id number] Author: GEETA NEWELL RN Service: Care Management Author Type: Registered Nurse Type: Care Mgt Progress Note Filed: 11/01/2024 16:08 Note Text: CARE MANAGEMENT PROGRESS NOTE SERVICE DATE: 11/01/2024 SERVICE TIME: 4:01 PM LOS: 4 days Post-Acute Discharge Plan: Chart reviewed. Patient resides in assisted living at [facility] in [place]. S/p fall. Left femoral neck fracture. Progression of T12 compression fracture. Acute on chronic pain. PT/OT recommend SNF. Plan is for SNF placement at discharge. Ricki Leigh is able to accept patient. Insurance authorization obtained. Vinnie Pinto APRN.BRIAN notified. Due to limited transportation availability this evening, plan will be for discharge tomorrow. Transportation tentatively set for 1000 on 11/02. Ricki Leigh notified. Patient's son Alcon updated via phone ([phone]). Will continue to follow clinical course for further transitional/discharge planning needs. Transport at Discharge: Transportation Arrangements: Ambulance SIGNATURE: Geeta Newell RN PATIENT NAME: Anastacio Patel DATE: November 01, 2024 TIME: 4:01 PM [facility] 11-01-2024 Note HNO ID: [id number] Author: VINNIE PINTO APRN.BRIAN Service: General Surgery Author Type: Nurse Practitioner Type: Progress Notes Filed: 11/01/2024 07:34 Note Text: Trauma Surgery Progress Note SERVICE DATE: 11/01/2024 Trauma Service Pager: For questions or concerns Mon-Fri 6a-5p please page [phone]. After 5pm and on Weekends and Holidays, please page [phone] if in ICU or [phone] if on RNF. SUBJECTIVE: NAEON. Patient reports he feels very stiff this morning. He discusses how independent he is at baseline and that he is never in bed during the day. He is anxious to move onto rehab and return to independent living. He details his routine and emphasizes his desire to get moving and be self sufficient. Awaiting SNF placement. OBJECTIVE: Vitals: Temp (24hrs), Av.3 ?C (99.1 ?F), Min:36.7 ?C (98.1 ?F), Max:38.1 ?C (100.5 ?F) BP 103/63 Pulse 105 Temp 37.2 ?C (98.9 ?F) (Oral) Resp 18 Ht 172.7 cm (5' 8") Wt 51.1 kg (112 lb 10.5 oz) SpO2 94% BMI 17.13 kg/m? O2 Therapy: Room Air IANDO: Date 10/31/24 07 - 11/01/24 0659 11/01/24 07 - 11/02/24 0659 Shift 8683-1414 6438-5283 5525-7218 24 Hour Total 7134-3344 5071-7907 0496-2560 24 Hour Total INTAKE Shift Total OUTPUT Urine 780 986 4770 Urine Not Saved. 1 x 1 x Output ( External Collection Device 10/29/24 1845) 005 822 0985 Shift Total 830 431 2366 Weight (kg) 51.1 51.1 51.1 51.1 51.1 51.1 51.1 51.1 MEDICATIONS: Current Facility-Administered Medications Medication Dose Route Frequency heparin 5,000 Units injection 5,000 Units SUBCUTANEOUS q 8 H traMADol 50 mg tab(s) (ULTRAM) 50 mg ORAL TID PRN melatonin 6 mg tab(s) 6 mg ORAL DAILY (8 PM) buprenorphine - VERIFY PATCH OTHER q 8 H NaCl 0.9% iv flush bag 20 mL INTRAVENOUS PRN senna-docusate 8.6-50 mg 1 tablet (SENNA-S) 1 tablet ORAL BID polyethylene glycol 3350 17 g packet 17 g ORAL DAILY donepezil 10 mg tab(s) (ARICEPT) 10 mg ORAL AT BEDTIME gabapentin 300 mg cap(s) (NEURONTIN) 300 mg ORAL BID finasteride 1 mg tab(s) (PROPECIA) 1 mg ORAL DAILY Ipratropium [place] 2 [place] nasal spray (ATROVENT) 2 [place] NASAL q 12 H ondansetron 4 mg tab(s) (ZOFRAN) 4 mg ORAL q 6 H PRN Or ondansetron (PF) 4 mg injection (ZOFRAN) 4 mg INTRAVENOUS q 6 H PRN ipratropium-albuterol 3 mL nebulizer solution (DUONEB) 3 mL INHALATION q 6 H PRN acetaminophen 1,000 mg tab(s) (TYLENOL) 1,000 mg ORAL q 8 H tiZANidine 4 mg tab(s) (ZANAFLEX) 4 mg ORAL TID PRN Labs: Recent Labs 11/01/24 0041 10/31/24 0213 NA 138 138 K 4.1 4.4 CHLOR 101 101 CO2 28 30 BUN 33* 25* CREAT 1.32* 1.08 GLUC 145* 114* ANION 9 7* CA 8.6 8.8 WBC 12.23* 15.72* HB 8.7* 9.3* HCT 26.0* 28.5* PLT 149* 128* PHYSICAL EXAM: Genl: Appears age appropriate. No acute distress. Resting comfortably. Head/Face: Normocephalic. Atraumatic Eyes: EOMI. PERRLA. Sclera not icteric, not injected Neck: No mid-line masses. C-spine non-tender. Back: No midline tenderness, step-offs or deformities. Resp: Lungs CTAB. No wheezes, rales or rhonchi. Respiratory status stable on RA. CVS: RRR as above. 2+ RA, DP, PT pulses bilaterally. GI: Abdomen is soft, non-tender, non-distended. No guarding or peritoneal signs. MSK: No gross deformities. No clubbing, cyanosis or edema. Normal AROM x 3. Limited ROM LLE due to injury/pain/surgery. Mepilex dressing to left hip incision. Skin: Warm and dry. Not jaundiced. Neuro: AANDOx3. Strength and sensation grossly intact in all extremities. RODARTE. GCS15. Psych: Normal mood. Normal affect. Appropriate insight into current situation. ASSESSMENT AND PLAN: Assessment Active Hospital Problems Diagnosis Date Noted S/p left hip fracture 10/28/2024 Dementia (HCC) 10/26/2023 Priority: A Overview Note: Seeing Dr. Gentile as of 10/2023 and was started on Aricept (MMSE was 21/30) Leukocytosis 10/31/2024 Closed wedge compression fracture of T12 vertebra (HCC) 10/28/2024 Delirium 10/28/2024 Frailty syndrome in geriatric patient 10/28/2024 Frequent falls 10/28/2024 Acute pain 10/28/2024 Other chronic pain 10/28/2024 Encounter for pain management 10/28/2024 Left displaced femoral neck fracture (HCC) 10/28/2024 84-year old male s/p fall on 10/27/24 (Trauma transfer) Imaging performed: CT HNC, CXR, PXR (10/27) CT AP, XR T-spine, PXR (10/28) CXR (10/31) Traumatic Injuries: Left femoral neck fracture Progression of T12 compression fracture Operations/Procedures: Open treatment of left femoral fracture proximal end neck internal fixation with left hip hemiarthroplasty Dr. Michael on 10/28/24 Care Plan: Left femoral neck fracture Orthopedic surgery consulted, appreciate recommendations POD #4 Left hip hemiarthroplasty Received empiric post-operative Cefazolin x 2 doses (10/29) Maintain Mepilex dressing x 7 days (end date: 11/04) Per ortho, recommend Lovenox 40 mg daily x 21 days WBAT on LLE with posterior hip precautions [place]imoda (more content not included)... [facility] 10-31-2024 Note HNO ID: [id number] Author: GEETA NEWELL RN Service: Care Management Author Type: Registered Nurse Type: Care Mgt Progress Note Filed: 10/31/2024 14:42 Note Text: CARE MANAGEMENT PROGRESS NOTE SERVICE DATE: 10/31/2024 SERVICE TIME: 1:57 PM LOS: 3 days Post-Acute Discharge Plan: Chart reviewed. Patient resides in assisted living at [facility] in [place]. S/p fall. Left femoral neck fracture. Progression of T12 compression fracture. Acute on chronic pain. PT/OT recommend SNF. Plan is for SNF placement at discharge. No current bed availability at [facility]. Patient resting. Patient's son Alcon updated via phone ([phone]). Patient's son requests referral to [facility]. Facility notified. Awaiting acceptance. Will need insurance authorization. ADDENDUM 10/31/24 1441: [facility] is able to accept patient. Awaiting insurance authorization. Will continue to follow clinical course for further transitional/discharge planning needs. Transport at Discharge: Transportation Arrangements: Ambulance SIGNATURE: Geeta Newell RN PATIENT NAME: Anastacio Patel DATE: October 31, 2024 TIME: 1:57 PM [facility] 10-31-2024 Note HNO ID: [id number] Author: GEETA NEWELL RN Service: Care Management Author Type: Registered Nurse Type: Care Mgt Progress Note Filed: 10/31/2024 13:09 Note Text: CARE MANAGEMENT PROGRESS NOTE SERVICE DATE: 10/31/2024 SERVICE TIME: 1:09 PM LOS: 3 days IMM Follow Up Copy Given: Yes Copy given to:: Patient Method: In Person (Copy left at the bedside) SIGNATURE: Geeta Newell RN PATIENT NAME: Anastacio Patel DATE: October 31, 2024 TIME: 1:08 PM [facility] 10-31-2024 Note HNO ID: [id number] Author: VINNIE PINTO APRN.CNP Service: General Surgery Author Type: Nurse Practitioner Type: Progress Notes Filed: 10/31/2024 12:58 Note Text: Trauma Surgery Progress Note SERVICE DATE: 10/31/2024 Trauma Service Pager: For questions or concerns Mon-Fri 6a-5p please page [phone]. After 5pm and on Weekends and Holidays, please page [phone] if in ICU or [phone] if on RNF. SUBJECTIVE: NAEON. Patient up to chair. Reports pain is controlled. Tolerating diet. Oriented x3. No focal complaints. OBJECTIVE: Vitals: Temp (24hrs), Av.2 ?C (98.9 ?F), Min:36.5 ?C (97.7 ?F), Max:38.3 ?C (101 ?F) BP 105/64 Pulse 103 Temp 37.4 ?C (99.4 ?F) (Oral) Resp 16 Ht 172.7 cm (5' 8") Wt 51.1 kg (112 lb 10.5 oz) SpO2 93% BMI 17.13 kg/m? O2 Therapy: Room Air IANDO: Date 10/30/24 07 - 10/31/24 0659 10/31/24 07 - 11/01/24 0659 Shift 7002-3795 5709-0434 7001-4991 24 Hour Total 6064-5740 8798-7123 8270-7770 24 Hour Total INTAKE PO 320 320 PO 320 320 Shift Total 320 320 OUTPUT Urine 600 600 Output ( External Collection Device 10/29/24 1845) 600 600 Shift Total 600 600 Weight (kg) 51.1 51.1 51.1 51.1 51.1 51.1 51.1 51.1 MEDICATIONS: Current Facility-Administered Medications Medication Dose Route Frequency traMADol 50 mg tab(s) (ULTRAM) 50 mg ORAL TID PRN melatonin 6 mg tab(s) 6 mg ORAL DAILY (8 PM) buprenorphine - VERIFY PATCH OTHER q 8 H NaCl 0.9% iv flush bag 20 mL INTRAVENOUS PRN senna-docusate 8.6-50 mg 1 tablet (SENNA-S) 1 tablet ORAL BID polyethylene glycol 3350 17 g packet 17 g ORAL DAILY donepezil 10 mg tab(s) (ARICEPT) 10 mg ORAL AT BEDTIME gabapentin 300 mg cap(s) (NEURONTIN) 300 mg ORAL BID finasteride 1 mg tab(s) (PROPECIA) 1 mg ORAL DAILY Ipratropium [place] 2 Pierce nasal spray (ATROVENT) 2 Pierce NASAL q 12 H ondansetron 4 mg tab(s) (ZOFRAN) 4 mg ORAL q 6 H PRN Or ondansetron (PF) 4 mg injection (ZOFRAN) 4 mg INTRAVENOUS q 6 H PRN ipratropium-albuterol 3 mL nebulizer solution (DUONEB) 3 mL INHALATION q 6 H PRN acetaminophen 1,000 mg tab(s) (TYLENOL) 1,000 mg ORAL q 8 H tiZANidine 4 mg tab(s) (ZANAFLEX) 4 mg ORAL TID PRN enoxaparin 40 mg injection (LOVENOX) 40 mg SUBCUTANEOUS q 24 HR Labs: Recent Labs 10/31/24 0213 10/30/24 0053 NA 138 137 K 4.4 4.5 CHLOR 101 102 CO2 30 28 BUN 25* 24 CREAT 1.08 0.99 GLUC 114* 105* ANION 7* 7* CA 8.8 8.9 WBC 15.72* 15.48* HB 9.3* 9.5* HCT 28.5* 28.0* PLT 128* 118* PHYSICAL EXAM: Genl: Appears age appropriate. No acute distress. Resting comfortably. Head/Face: Normocephalic. Atraumatic Eyes: EOMI. PERRLA. Sclera not icteric, not injected Neck: No mid-line masses. C-spine non-tender. Back: No midline tenderness, step-offs or deformities. Resp: Lungs CTAB. No wheezes, rales or rhonchi. Respiratory status stable on RA @ 93%. CVS: RRR as above. 2+ RA, DP, PT pulses bilaterally. GI: Abdomen is soft, non-tender, non-distended. No guarding or peritoneal signs. MSK: No gross deformities. No clubbing, cyanosis or edema. Normal AROM x 3. Limited ROM LLE due to injury/pain/surgery. Mepilex dressing to left hip incision. Skin: Warm and dry. Not jaundiced. Neuro: AANDOx3. Strength and sensation grossly intact in all extremities. RODARTE. GCS15. Psych: Normal mood. Normal affect. Appropriate insight into current situation. ASSESSMENT AND PLAN: Assessment Active Hospital Problems Diagnosis Date Noted S/p left hip fracture 10/28/2024 Dementia (HCC) 10/26/2023 Priority: A Overview Note: Seeing Dr. Gentile as of 10/2023 and was started on Aricept (MMSE was 21/30) Leukocytosis 10/31/2024 Closed wedge compression fracture of T12 vertebra (HCC) 10/28/2024 Delirium 10/28/2024 Frailty syndrome in geriatric patient 10/28/2024 Frequent falls 10/28/2024 Acute pain 10/28/2024 Other chronic pain 10/28/2024 Encounter for pain management 10/28/2024 Left displaced femoral neck fracture (HCC) 10/28/2024 84-year old male s/p fall on 10/27/24 (Trauma transfer) Imaging performed: CT HNC, CXR, PXR (10/27) CT AP, XR T-spine, PXR (10/28) CXR (10/31) Traumatic Injuries: Left femoral neck fracture Progression of T12 compression fracture Operations/Procedures: Open treatment of left femoral fracture proximal end neck internal fixation with left hip hemiarthroplasty Dr. Michael on 10/28/24 Care Plan: Left femoral neck fracture Orthopedic surgery consulted, appreciate recommendations POD #3 Left hip hemiarthroplasty Received empiric post-operative Cefazolin x 2 doses (10/29) Maintain Mepilex dressing x 7 days (end date: 11/04) Per ortho, recommend Lovenox 40 mg daily x 21 days WBAT on LLE with posterior hip precautions Multimodal pain control PT/OT Progression of T12 compression fracture Neurosurgery consulted, appreciate recommendations Non-operative management Upright T-spine XR (10/28): Stable appearance of spine Wear brace at facility as (more content not included)... [facility] 10-31-2024 Note HNO ID: [id number] Author: GEETA NEWELL RN Service: Care Management Author Type: Registered Nurse Type: Care Mgt Progress Note Filed: 10/31/2024 12:11 Note Text: Attestation signed by Diana Dean DO at 10/31/2024 12:54 PM Diana Dean DO CARE MANAGEMENT PROGRESS NOTE SERVICE DATE: 10/31/2024 SERVICE TIME: 12:11 PM LOS: 3 days Physician Certification of Less Than 30 Days Skilled Needs Earliest Possible Discharge Date: 10/31/24 To the best of my knowledge, all information provided about the individual is a true and an accurate reflection of Anastacio Patel's needs. I certify that following the inpatient level of care, a post-acute nursing facility stay is required for less than 30 days related to the condition(s) for which the patient was treated during the inpatient level of care: Principal Problem: S/p left hip fracture Active Problems: Dementia (HCC) Closed wedge compression fracture of T12 vertebra (HCC) Delirium Frailty syndrome in geriatric patient Frequent falls Acute pain Other chronic pain Encounter for pain management Left displaced femoral neck fracture (HCC) Resolved Problems: * No resolved hospital problems. * Attending Physician: Diana Dean SIGNATURE: Geeta Newell RN PATIENT NAME: Anastacio Patel DATE: October 31, 2024 TIME: 12:11 PM [facility] 10-30-2024 Note HNO ID: [id number] Author: KEYONA MENDOZA MD Service: Pain Management Author Type: Physician Type: Progress Notes Filed: 10/30/2024 11:45 Note Text: Name: ANASTACIO PATEL Age: [age] year old PAIN MANAGEMENT: s/p Fall, left femoral neck fracture s/p left hip hemiarthroplasty, progression of T12 compression fracture Pain Description: Patient feels better this morning. Complaining of neck pain. Had cough last night Interval HPI: Stable overnight. No acute events 24H Comfort Meds: Tylenol 1 g x 3 Butrans 10 mcg weekly patch (placed 10/26) x 1 Gabapentin 300 mg x 2 Dilaudid 0.2 mg IV x 0 Oxycodone 5 mg x 2 melatonin 6 mg x 1 Zanaflex 4 mg x 0 MiraLAX x 1, senna S1 tab x 2 Subjective HPI: 84-year-old male with history of debility, dementia presented 10/28 after a fall in which she sustained left femoral neck fracture and progression of T12 compression fracture. Patient underwent left hip hemiarthroplasty 10/28. Postop course complicated by delirium. He was seen by neurosurgery with recommendation for nonoperative management of T12 fracture including wearing brace as needed for comfort. Patient is unable to provide much of past history. He is prescribed Butrans 10 mcg patch weekly per [place] pain management. He lives at [facility] in [place]; he uses a cane with ambulation. OARRS Review: 20 prescriptions from 4 prescribers. Opiate dependent. Most recent prescriptions: 10/25 Butrans 10 mcg patch #4 10/06 tramadol 50 mg #30 10/04 Butrans 5 mcg patch #4 08/04 gabapentin 300 mg #60 Current Facility-Administered Medications Medication Dose Route Frequency Provider Last Rate Last Admin melatonin 6 mg tab(s) 6 mg ORAL DAILY (8 PM) Olive Guardado APRN.BL[employer] WORKER 6 mg at 10/29/242054 [START ON 11/02/2024] buprenorphine 10 mcg/hour 1 Patch (BUTRANS) 1 Patch TRANSDERMAL 1/WK Keyona Mendoza MD And [START ON 11/02/2024] buprenorphine - REMOVE PATCH OTHER 1/WK Keyona Mendoza MD And buprenorphine - VERIFY PATCH OTHER q 8 H Keyona Mendoza MD NaCl 0.9% iv flush bag 20 mL INTRAVENOUS PRN William Larson MD senna-docusate 8.6-50 mg 1 tablet (SENNA-S) 1 tablet ORAL BID William Larson MD 1 tablet at 10/30/24 08 polyethylene glycol 3350 17 g packet 17 g ORAL DAILY William Larson MD 17 g at 10/30/24 08 donepezil 10 mg tab(s) (ARICEPT) 10 mg ORAL AT BEDTIME William Larson MD 10 mg at 10/29/242054 gabapentin 300 mg cap(s) (NEURONTIN) 300 mg ORAL BID William Larson MD 300 mg at 10/30/24 08 finasteride 1 mg tab(s) (PROPECIA) 1 mg ORAL DAILY William Larson MD 1 mg at 10/30/24 08 Ipratropium [place] 2 Pierce nasal spray (ATROVENT) 2 Pierce NASAL q 12 H William Larson MD 2 Pierce at 10/30/24 08 ondansetron 4 mg tab(s) (ZOFRAN) 4 mg ORAL q 6 H PRN William Larson MD Or ondansetron (PF) 4 mg injection (ZOFRAN) 4 mg INTRAVENOUS q 6 H PRN William Larson MD oxyCODONE IR 2.5-5 mg tab(s) (ROXICODONE) 2.5-5 mg ORAL q 4 H PRN William Larson MD 5 mg at 10/30/24 05 ipratropium-albuterol 3 mL nebulizer solution (DUONEB) 3 mL INHALATION q 6 H PRN William Larson MD acetaminophen 1,000 mg tab(s) (TYLENOL) 1,000 mg ORAL q 8 H William Larson MD 1,000 mg at 10/30/24 0538 tiZANidine 4 mg tab(s) (ZANAFLEX) 4 mg ORAL TID PRN William Larson MD HYDROmorphone 0.2 mg injection (DILAUDID) 0.2 mg INTRAVENOUS q 3 H PRN William Larson MD enoxaparin 40 mg injection (LOVENOX) 40 mg SUBCUTANEOUS q 24 HR William Larson MD 40 mg at 10/30/24 0817 docusate sodium (COLACE) 100 mg capsule, Take 1 capsule by mouth two times a day as needed for constipation., Disp: 60 capsule, Rfl: 11 traMADol (ULTRAM) 50 mg tablet, Take 1 tablet by mouth every 8 hours as needed for pain for up to 60 days., Disp: 90 tablet, Rfl: 1 finasteride (PROPECIA) 1 mg tablet, Take 1 tablet by mouth once daily., Disp: 90 tablet, Rfl: 3 donepezil (ARICEPT) 10 mg tablet, Take 1 tablet by mouth daily at bedtime. Per Neuro: Dr. Gentile., Disp: , Rfl: Ipratropium [place] (ATROVENT) 21 mcg (0.03 %) nasal spray, Use 2 Sprays in the nose every 12 hours., Disp: 30 mL, Rfl: 5 gabapentin (NEURONTIN) 300 mg capsule, Take 1 capsule by mouth three times daily for 180 days. (Patient taking differently: Take 300 mg by mouth two times a day.), Disp: 90 capsule, Rfl: 5 losartan (COZAAR) 100 mg tablet, Take 100 mg by mouth once daily. Take one tablet daily, Disp: , Rfl: baclofen 10 mg tablet, Take 1 tablet by mouth three times daily as needed (muscle spasms)., Disp: , Rfl: acetaminophen (TYLENOL EXTRA STRENGTH) 500 mg tablet, Take 2 tablets by mouth every 8 hours as needed for pain. (Patient taking differently: Take 1,000 mg by mouth every 8 hours as needed for pain. Using Tylenol Arthritis 650mg PRN), Disp: , Rfl: loperamide HCl (IMODIUM) 2 mg tab, Take 1 tablet by mouth as needed. For loose (more content not included)... [facility] 10-30-2024 Note HNO ID: [id number] Author: OLIVE GUARDADO APRN.BRIAN Service: General Surgery Author Type: Nurse Practitioner Type: Progress Notes Filed: 10/30/2024 08:06 Note Text: Trauma Surgery Progress Note SERVICE DATE: 10/30/2024 Trauma Service Pager: For questions or concerns Mon-Fri 6a-5p please page [phone]. After 5pm and on Weekends and Holidays, please page [phone] if in ICU or [phone] if on RNF. SUBJECTIVE: No acute overnight events. Patient's delirium improved. Patient is alert and oriented x 2 (reoriented to time), follows commands, RODARTE. No new focal deficits. He reports that his pain is well controlled on his current regimen. Patient denies chest pain, shortness of breath, abdominal pain, nausea, vomiting. Awaiting SNF placement. OBJECTIVE: Vitals: Temp (24hrs), Av.2 ?C (99 ?F), Min:36.4 ?C (97.5 ?F), Max:38.6 ?C (101.4 ?F) BP 112/65 Pulse 64 Temp 36.7 ?C (98 ?F) (Axillary) Resp 14 Ht 172.7 cm (5' 8") Wt 51.1 kg (112 lb 10.5 oz) SpO2 92% BMI 17.13 kg/m? O2 Therapy: Nasal Cannula IANDO: Date 10/29/24 07 - 10/30/24 0610/30/24 07 - 10/31/24 0659 Shift 1431-0371 1661-0661 8925-5354 24 Hour Total 0128-9303 4887-1715 8669-9073 24 Hour Total INTAKE PO 740 740 PO 740 740 Shift Total 740 740 OUTPUT Urine 150 150 500 800 Urine Not Saved. 1 x 1 x 2 x Output ([REMOVED] Indwelling Urinary Catheter 10/28/24 0819 10/29/24 1100) 150 150 Output ( External Collection Device 10/29/24 1845) 150 500 650 Shift Total 150 150 500 800 Weight (kg) 51.1 51.1 51.1 51.1 51.1 51.1 51.1 51.1 MEDICATIONS: Current Facility-Administered Medications Medication Dose Route Frequency melatonin 6 mg tab(s) 6 mg ORAL DAILY (8 PM) buprenorphine - VERIFY PATCH OTHER q 8 H NaCl 0.9% iv flush bag 20 mL INTRAVENOUS PRN senna-docusate 8.6-50 mg 1 tablet (SENNA-S) 1 tablet ORAL BID polyethylene glycol 3350 17 g packet 17 g ORAL DAILY donepezil 10 mg tab(s) (ARICEPT) 10 mg ORAL AT BEDTIME gabapentin 300 mg cap(s) (NEURONTIN) 300 mg ORAL BID finasteride 1 mg tab(s) (PROPECIA) 1 mg ORAL DAILY Ipratropium [place] 2 Pierce nasal spray (ATROVENT) 2 Pierce NASAL q 12 H ondansetron 4 mg tab(s) (ZOFRAN) 4 mg ORAL q 6 H PRN Or ondansetron (PF) 4 mg injection (ZOFRAN) 4 mg INTRAVENOUS q 6 H PRN oxyCODONE IR 2.5-5 mg tab(s) (ROXICODONE) 2.5-5 mg ORAL q 4 H PRN ipratropium-albuterol 3 mL nebulizer solution (DUONEB) 3 mL INHALATION q 6 H PRN acetaminophen 1,000 mg tab(s) (TYLENOL) 1,000 mg ORAL q 8 H tiZANidine 4 mg tab(s) (ZANAFLEX) 4 mg ORAL TID PRN HYDROmorphone 0.2 mg injection (DILAUDID) 0.2 mg INTRAVENOUS q 3 H PRN enoxaparin 40 mg injection (LOVENOX) 40 mg SUBCUTANEOUS q 24 HR Labs: Recent Labs 10/30/24 0053 10/29/24 1133 10/29/24 0431 10/28/24 0601 10/28/24 0438 NA 137 138 134* -- 144 K 4.5 4.2 5.2* -- 5.0 CHLOR 102 101 98 -- 106 CO2 28 28 25 -- 26 BUN 24 23 22 -- 34* CREAT 0.99 1.20 1.03 -- 1.23* GLUC 105* 109* 118* -- 91 ANION 7* 9 11 -- 12 CA 8.9 8.7 9.1 -- 9.3 WBC 15.48* -- 13.10* < > -- HB 9.5* -- 10.2* < > -- HCT 28.0* -- 30.6* < > -- PLT 118* -- 127* < > -- INR -- -- -- -- 1.4* < > = values in this interval not displayed. PHYSICAL EXAM: Genl: Appears age appropriate. No acute distress. Resting comfortably. Head/Face: Normocephalic. Atraumatic Eyes: EOMI. PERRLA. Sclera not icteric, not injected Neck: No mid-line masses. C-spine non-tender. Back: No midline tenderness, step-offs or deformities. Resp: Lungs CTAB. No wheezes, rales or rhonchi. Respiratory status stable on 2L NC @ 99%. CVS: RRR as above. 2+ RA, DP, PT pulses bilaterally. GI: Abdomen is soft, non-tender, non-distended. No guarding or peritoneal signs. MSK: No gross deformities. No clubbing, cyanosis or edema. Normal AROM x 3. Limited ROM LLE due to injury/pain/surgery. Mepilex dressing to left hip incision. Skin: Warm and dry. Not jaundiced. Neuro: AANDOx3. Strength and sensation grossly intact in all extremities. RODARTE. GCS15. Psych: Normal mood. Normal affect. Appropriate insight into current situation. ASSESSMENT AND PLAN: Assessment Active Hospital Problems Diagnosis Date Noted S/p left hip fracture 10/28/2024 Dementia (HCC) 10/26/2023 Priority: A Overview Note: Seeing Dr. Gentile as of 10/2023 and was started on Aricept (MMSE was 21/30) Closed wedge compression fracture of T12 vertebra (HCC) 10/28/2024 Delirium 10/28/2024 Frailty syndrome in geriatric patient 10/28/2024 Frequent falls 10/28/2024 Acute pain 10/28/2024 Other chronic pain 10/28/2024 Encounter for pain management 10/28/2024 Left displaced femoral neck fracture (HCC) 10/28/2024 84-year old male s/p fall on 10/27/24 (Trauma transfer) Imaging performed: CT HNC, CXR, PXR (10/27) CTAP, XR T-spine, PXR (10/28) Traumatic Injuries: Left femoral neck fracture Progression of T12 compression fracture Operations/Procedures: Open treatment of left femoral fract (more content not included)... [facility] 10-30-2024 Note HNO ID: [id number] Author: MATT MICHAEL MD Service: Orthopaedic Surgery Author Type: Physician Type: Progress Notes Filed: 10/30/2024 09:37 Note Text: Orthopaedic Trauma Surgery Attending Addendum Reviewed resident Progress Note. The patient was personally seen and examined on 10/30/2024. Agree with resident history, physical examination, assessment and plan unless otherwise noted. -Management per trauma surgery -PT/OT: Weight-bearing as tolerated with the left lower extremity with posterior hip precautions and ambulation assistance devices -Post-Operative Antibiotics: Ancef 2g IV q8H x 2 doses - complete -DVT PPX: SCDs; Lovenox 40 mg subcutaneous daily x 21 days -Ricketts: Management per trauma surgery -Consultations: Geriatrics -Dressings: Mepilex to the left thigh for 7-10 days -Pain control; ice to the left thigh -Disposition: Discharge disposition per trauma surgery. The patient is stable for discharge from an orthopaedic trauma standpoint. Orthopaedics will follow peripherally at this time. Please page [phone] for questions and concerns. [place] will facilitate outpatient orthopaedic follow-up. Matt Michael MD Orthopaedic Trauma Surgery 10/30/2024 9:36 AM ORTHOPAEDIC SURGERY DAILY PROGRESS NOTE Patient Name: Anastacio Patel Date of Evaluation: 10/30/2024 Admission Date: 10/28/2024 Time of Evaluation: 6:13 AM ASSESSMENT: 84 year old male POD # 2 s/p L hip jose miguel PLAN: -Management per trauma surgery -PT/OT: Weight-bearing as tolerated with the left lower extremity with posterior hip precautions and ambulation assistance devices, SNF planning -Post-Operative Antibiotics: Ancef 2g IV q8H x 2 doses -DVT PPX: SCDs; Lovenox 40 mg subcutaneous daily x 21 days -Ricketts: Management per trauma surgery -Consultations: Geriatrics -Dressings: Mepilex to the left thigh for 7-10 days -Pain control; ice to the left thigh -Disposition: Discharge disposition per trauma surgery -Follow up with Dr. iMchael in 10-14 days INTERVAL HPI: No acute events overnight recorded in chart. Pt resting comfortably in bed with pain controlled. He is confused but redirectable. Endorsing soreness to the left hip with ambulation. He worked with PT who recommended SNF. The patient denies nausea/vomiting, fevers/chills, and new numbness/tingling to LLE. OBJECTIVE: BP 134/82 Pulse 92 Temp 36.6 ?C (97.8 ?F) (Oral) Resp 14 Ht 172.7 cm (5' 8") Wt 51.1 kg (112 lb 10.5 oz) SpO2 99% BMI 17.13 kg/m? Intake/Output Summary (Last 24 hours) 10/29 2300 - 10/30 0659 In: - Out: 500 [Urine:500] Exam: General: Pt is alert, resting in bed, no acute distress, cooperative throughout the exam and interview, answers questions appropriately Extremities: Left Lower Extremity: Dressing clean, dry, and intact. Surgical site no drainage and Mepilex intact. SILT S/S/SP/DP/T Motor intact DF/PF/EHL DP pulse palpable, foot warm, BCR toes Compartments soft, compressible. Tolerates passive stretch of digits. Labs: BMP: Sodium 137 10/30/2024 Potassium 4.5 10/30/2024 Chloride 102 10/30/2024 CO2 Content, Venous 28 10/30/2024 BUN 24 10/30/2024 Creatinine (POCT) 0.99 10/30/2024 Glucose 105 10/30/2024 CBC: WBC 15.48 10/30/2024 Hemoglobin 9.5 10/30/2024 Hematocrit 28.0 10/30/2024 Platelet Count 118 10/30/2024 COAGS: APTT 25.8 10/28/2024 INR 1.4 10/28/2024 SED RATE/CRP: No results found for this basename: wsr:*,crp:* Imaging: No new orthopaedic imaging to review Braxton Thomas MD Resident, Orthopaedic Surgery 10/30/2024 6:13 AM Please page [phone] from 5p-6a and on weekends for any issues. INPATIENT ATTENDING: Matt Duran MD, Urgent High-Risk Geriatric Patient Vulnerabilities: Impaired Functional Status Diet: DIET REGULAR Recommendations: Cognition: No Cognitive Impairment bCAM Score (Calc): Negative Delirium Screen Geriatric Consult (Age over 85 or impaired cognition):Consult to Full Time Babysitter Palliative Care/Hospice: Consult not required Rehab/Therapy: PT/OT Recommendations: PT: Recommended Discharge Disposition: Subacute/SNF OT: Swallow: Speech Recommendations: Speech: Speech Diet: Nutrition: Consult not required Nutrition Recommendations: MST: Total MST Score (Calculated): 0 Client Manager Large Law: Diet: Continue current diet Supplements: Mighty Shake No Sugar Added, Magic Cup Discharge Recommendations: Diet, Oral Supplements Diet: Regular Pharmacy: Consult not needed Social Work: Social Work Consulted Anticipated Discharge Disposition: Care Home Facility [facility] 10-29-2024 Note HNO ID: [id number] Author: RACHEL ALNOSO PA-C Service: Neurosurgery Author Type: Physician Crown Blocker Type: Plan of Care Filed: 10/29/2024 11:37 Note Text: NSGY Plan of Care Patient can wear brace he has at his facility as needed for comfort. No follow-up necessary. D/w Dr Vega. NSGY will s/o. Please page with questions or concerns Rachel Alonso Pager [phone] [facility] 10-29-2024 Note HNO ID: [id number] Author: MATT MICHAEL MD Service: Orthopaedic Surgery Author Type: Physician Type: Progress Notes Filed: 10/29/2024 20:02 Note Text: Orthopaedic Trauma Surgery Attending Addendum Reviewed resident Progress Note. The patient was personally seen and examined on 10/29/2024. Agree with resident history, physical examination, image interpretation, assessment and plan unless otherwise noted. -Management per trauma surgery -PT/OT: Weight-bearing as tolerated with the left lower extremity with posterior hip precautions and ambulation assistance devices -Post-Operative Antibiotics: Ancef 2g IV q8H x 2 doses -DVT PPX: SCDs; Lovenox 40 mg subcutaneous daily x 21 days -Ricketts: Management per trauma surgery -Consultations: Geriatrics -Dressings: Mepilex to the left thigh for 7-10 days -Pain control; ice to the left thigh -Disposition: Discharge disposition per trauma surgery Matt Michael MD Orthopaedic Trauma Surgery 10/29/2024 8:01 PM ORTHOPAEDIC SURGERY DAILY PROGRESS NOTE Patient Name: Anastacio Patel Date of Evaluation: 10/29/2024 Admission Date: 10/28/2024 Time of Evaluation: 8:22 AM ASSESSMENT: 84 year old male POD # 1 s/p L hip jose miguel PLAN: -Management per primary -Pain control -WBAT on the operative extremity with posterior hip precautions -PT/OT -DVTppx: Lovenox 40 mg daily x 21 days -Diet: regular -Dressings: Mepilex dressing x 10 days -Ancef 2g x 2 doses, final dose this morning -Dispo: pending PT, pain control INTERVAL HPI: Pt is disoriented this morning but is redirectable. AF and VSS. Pain controlled. The patient denies nausea/vomiting, fevers/chills, and new numbness/tingling to the LLE. OBJECTIVE: BP 139/83 Pulse 105 Temp 37.9 ?C (100.2 ?F) (Oral) Resp 16 Ht 172.7 cm (5' 8") Wt 51.1 kg (112 lb 10.5 oz) SpO2 97% BMI 17.13 kg/m? Intake/Output Summary (Last 24 hours) No intake/output data recorded. Exam: General: Pt is alert, resting in bed, no acute distress, cooperative throughout the exam and interview, answers questions appropriately Extremities: Left Lower Extremity: Dressing clean, dry, and intact. Surgical site no drainage and Mepilex intact. SILT S/S/SP/DP/T Motor intact DF/PF/EHL DP pulse palpable, foot warm, BCR toes Compartments soft, compressible. Tolerates passive stretch of digits. Labs: BMP: Sodium 134 10/29/2024 Potassium 5.2 10/29/2024 Chloride 98 10/29/2024 CO2 Content, Venous 25 10/29/2024 BUN 22 10/29/2024 Creatinine (POCT) 1.03 10/29/2024 Glucose 118 10/29/2024 CBC: WBC 13.10 10/29/2024 Hemoglobin 10.2 10/29/2024 Hematocrit 30.6 10/29/2024 Platelet Count 127 10/29/2024 COAGS: APTT 25.8 10/28/2024 INR 1.4 10/28/2024 SED RATE/CRP: No results found for this basename: wsr:*,crp:* Imaging: AP pelvis reviewed and demonstrates orthopaedic hardware in stable position. Braxton Thomas MD Resident, Orthopaedic Surgery 10/29/2024 8:22 AM Please page [phone] from 5p-6a and on weekends for any issues. [facility] 10-29-2024 Note HNO ID: [id number] Author: OLIVE GUARDADO APRN.BRIAN Service: General Surgery Author Type: Nurse Practitioner Type: Progress Notes Filed: 10/29/2024 13:15 Note Text: Trauma Surgery Progress Note SERVICE DATE: 10/29/2024 Trauma Service Pager: For questions or concerns Mon-Thu 6a-5p please page [phone]. After 5pm and on Weekends and Holidays, please page [phone] if in ICU or [phone] if on RNF. SUBJECTIVE: No acute overnight events. Patient is delirious on examination, believes he is at his nursing facility. Patient is alert and oriented x 1 (reoriented to place, time), follows simple commands, RODARTE. No new focal deficits. He reports that his pain is well controlled on his current regimen. Patient denies chest pain, shortness of breath, abdominal pain, nausea, vomiting. OBJECTIVE: Vitals: Temp (24hrs), Av.5 ?C (97.7 ?F), Min:35.7 ?C (96.3 ?F), Max:37.9 ?C (100.2 ?F) BP 139/83 Pulse 105 Temp 37.9 ?C (100.2 ?F) (Oral) Resp 16 Ht 172.7 cm (5' 8") Wt 51.1 kg (112 lb 10.5 oz) SpO2 97% BMI 17.13 kg/m? O2 Therapy: Room Air IANDO: Date 10/28/24699 - 10/29/24 0610/29/24699 - 10/30/24 0659 Shift 7826-1098 4226-0699 2430-0910 24 Hour Total 9143-0879 7664-0578 1115-0562 24 Hour Total INTAKE PO 0 0 PO 0 0 IV 900 900 Volume (mL) (ceFAZolin 2 g in D5W 100 mL (ANCEF)) 100 100 Volume (mL) (tranexamic acid (CYKLOKAPRON) in NaCl 0.7%) 100 100 Volume (mL) (lactated ringers iv infusion) 700 700 Shift Total 0 900 900 OUTPUT Urine 350 531 630 9025 OR Urine Output 350 350 Output ( Indwelling Urinary Catheter 10/28/24 0819) 350 959 096 4512 Blood 200 200 Estimated Blood loss 200 200 Shift Total 350 952 627 6893 Weight (kg) 51.1 51.1 51.1 51.1 51.1 51.1 51.1 51.1 MEDICATIONS: Current Facility-Administered Medications Medication Dose Route Frequency NaCl 0.9% iv flush bag 20 mL INTRAVENOUS PRN docusate sodium 100 mg cap(s) (COLACE) 100 mg ORAL DAILY senna-docusate 8.6-50 mg 1 tablet (SENNA-S) 1 tablet ORAL BID polyethylene glycol 3350 17 g packet 17 g ORAL DAILY donepezil 10 mg tab(s) (ARICEPT) 10 mg ORAL AT BEDTIME gabapentin 300 mg cap(s) (NEURONTIN) 300 mg ORAL BID finasteride 1 mg tab(s) (PROPECIA) 1 mg ORAL DAILY Ipratropium [place] 2 Pierce nasal spray (ATROVENT) 2 Pierce NASAL q 12 H lactated ringers iv infusion 100 mL/hr INTRAVENOUS CONTINUOUS ondansetron 4 mg tab(s) (ZOFRAN) 4 mg ORAL q 6 H PRN Or ondansetron (PF) 4 mg injection (ZOFRAN) 4 mg INTRAVENOUS q 6 H PRN oxyCODONE IR 2.5-5 mg tab(s) (ROXICODONE) 2.5-5 mg ORAL q 4 H PRN ipratropium-albuterol 3 mL nebulizer solution (DUONEB) 3 mL INHALATION q 6 H PRN acetaminophen 1,000 mg tab(s) (TYLENOL) 1,000 mg ORAL q 8 H tiZANidine 4 mg tab(s) (ZANAFLEX) 4 mg ORAL TID PRN HYDROmorphone 0.2 mg injection (DILAUDID) 0.2 mg INTRAVENOUS q 3 H PRN enoxaparin 40 mg injection (LOVENOX) 40 mg SUBCUTANEOUS q 24 HR ceFAZolin iv piggyback 2 g in D5W (iso-osmotic) 100 mL (ANCEF) 2 g INTRAVENOUS q 8 HR iv contrast (radiology procedure) INTRAVENOUS DIRECTED PRN Labs: Recent Labs 10/29/24 0431 10/28/24 0601 10/28/24 0438 NA 134* -- 144 K 5.2* -- 5.0 CHLOR 98 -- 106 CO2 25 -- 26 BUN 22 -- 34* CREAT 1.03 -- 1.23* GLUC 118* -- 91 ANION 11 -- 12 CA 9.1 -- 9.3 WBC 13.10* 14.21* -- HB 10.2* 10.9* -- HCT 30.6* 33.3* -- PLT 127* 134* -- INR -- -- 1.4* PHYSICAL EXAM: Genl: Appears age appropriate. No acute distress. Resting comfortably. Head/Face: Normocephalic. Atraumatic Eyes: EOMI. PERRLA. Sclera not icteric, not injected Neck: No mid-line masses. C-spine non-tender. Back: No midline tenderness, step-offs or deformities. Resp: Lungs CTAB. No wheezes, rales or rhonchi. Respiratory status stable on 3L NC @ 97%. CVS: RRR as above. 2+ RA, DP, PT pulses bilaterally. GI: Abdomen is soft, non-tender, non-distended. No guarding or peritoneal signs. MSK: No gross deformities. No clubbing, cyanosis or edema. Normal AROM x 3. Limited ROM LLE due to injury/pain/surgery. Mepilex dressing to left hip incision. Skin: Warm and dry. Not jaundiced. Neuro: AANDOx3. Strength and sensation grossly intact in all extremities. RODARTE. GCS15. Psych: Normal mood. Normal affect. Appropriate insight into current situation. ASSESSMENT AND PLAN: Assessment Active Hospital Problems Diagnosis Date Noted S/p left hip fracture 10/28/2024 Dementia (HCC) 10/26/2023 Priority: A Overview Note: Seeing Dr. Gentile as of 10/2023 and was started on Aricept (MMSE was 21/30) Closed wedge compression fracture of T12 vertebra (HCC) 10/28/2024 Delirium 10/28/2024 Frailty syndrome in geriatric patient 10/28/2024 Frequent falls 10/28/2024 Acute pain 10/28/2024 Other chronic pain 10/28/2024 Encounter for pain management 10/28/2024 Left displaced femoral neck fracture (HCC) 10/28/2024 84-year old male s/p fall on 10/27/24 (Trauma transfer) Imaging performed: CT HNC, CXR, PXR (10/27) (more content not included)... [facility] 10-29-2024 Note HNO ID: [id number] Author: NOTE, INTERFACE, ? Service: ? Author Type: ? Type: Progress Notes Filed: 11/03/2024 16:04 Note Text: Epic Scheduled Downtime: 10/29/2024 1:00:00 AM to 10/29/2024 2:52:17 AM [facility] 10-28-2024 Note HNO ID: [id number] Author: CAYLA BYRNE DO Service: General Surgery Author Type: Resident Type: Plan of Care Filed: 10/28/2024 23:09 Note Text: Plan of Care Paged by radiology for xr pelvis post OR s/p L femur repair with ortho. Dr. Sung discussed finding of 0.68 metallic density in soft tissue of pelvic rim R side. Discussed with pt family and pt both who do not recall any ingestion of foreign body. Discussed with attending AND senior. Ordering Ct AP w IV contrast. BP 117/67 Pulse 74 Temp 36.3 ?C (97.4 ?F) (Oral) Resp 18 Ht 172.7 cm (5' 8") Wt 51.1 kg (112 lb 10.5 oz) SpO2 99% BMI 17.13 kg/m? General Surgery Cayla Esteban DO PGY-1 10/28/2024 10:37 PM [facility] 10-28-2024 Note HNO ID: [id number] Author: SANTANA ISLAS RN Service: Nursing Author Type: Registered Nurse Type: Nursing Progress Note Filed: 10/28/2024 18:01 Note Text: Post op xray in progress [facility] 10-28-2024 Note HNO ID: [id number] Author: JOSE GALVEZ APRN.RESEARCH SOIL SCIENTIST Service: Anesthesiology Author Type: Nurse Military Technology Specialist Type: Anesthesia Procedure Notes Filed: 10/28/2024 16:56 Note Text: ANESTHESIOLOGY PROCEDURE NOTE Airway General Information Procedure Start Time/Medication Administration: 10/28/2024 4:14 PM Procedure End Time: 10/28/2024 4:14 PM Patient location during procedure: OR Consent Obtained: Yes Patient identity confirmed: arm band Staffing RESEARCH SOIL SCIENTIST: Jose Galvez APRN.RESEARCH SOIL SCIENTIST Performed by: RESEARCH SOIL SCIENTIST Indications and Patient Condition Indications for airway management: anesthesia Preoxygenated: yes anesthesia circuit Patient position: sniffing Method: asleep Difficult Mask: No (2 handed) Final Airway Details Final airway type: endotracheal airway Final Endotracheal Airway: ETT Cuffed: yes Successful intubation technique: video laryngoscopy Devices used: [employer] Endotracheal tube insertion site: oral Blade: Miquel Blade size: #4 Measured from: lips Measurement (cm): 23 Placement verified by: chest auscultation and capnometry Cormack-Lehane Classification: grade I - full view of glottis Number of attempts at approach: 1 Failed airway: no Unrecognized esophageal intubation: no Airway not difficult SIGNATURE: Jose Galvez APRN.CRNA PATIENT NAME: Anastacio Patel DATE: October 28, 2024 TIME: 4:55 PM CSN: [id number] [facility] 10-28-2024 Note HNO ID: [id number] Author: CAPRICE CHIU RN Service: Care Management Author Type: Registered Nurse Type: Care Mgt Initial Assessment Filed: 10/28/2024 09:50 Note Text: CARE MANAGEMENT: ASSESSMENT AND DISCHARGE PLAN SERVICE DATE: October 28, 2024 SERVICE TIME: 9:48 AM PCP: Piero Rubin MD Primary Contact: Extended Emergency Contact Information Primary Emergency Contact: Alcon Patel [place] Relation: Son Admission Status: Inpatient Insurance Provider: [employer] Discharge Planning requested by: Per Department Practice Potential Transition Plans Care Home Facility/Intermediate Care Facility;To Be Determined Advance Directives Current Advance Directive: None Civil Cad Designer Attempted to Assist with AD Completion: No Unable to Assist Due To:: Delirium Current Living Arrangements and Support Lives with: Other person(s) [place] Type of Residence: Assisted Living Facility [facility] Support: Friends/neighbors How do you manage to accomplish the following: Needs Assistance: Ambulation;Bathe/Shower;Dress;Me als/Meal Prep;Going to the bathroom;Medication Management;Transportation to appointments/community Current Services/Equipment Current Post-Acute Service(s): DME Current DME Type: Walker, Cane, Wheelchair-manual Discharge Planning Patient Goal(s): Less pain, General wellness [place] of Choice Explained: [place] Given: Yes Level of Care Discussed: Care Home Facility Are you interested in bedside delivery of your medications? No Discharge Planning Participant(s): Family Patient/Family Comments: Caregiver Assessment: Caregiver is ready, willing and able to meet the patient's needs as recommended by the inter-professional team: Yes Name of Caregiver: TBD Transport at Discharge: Transportation Arrangements: To Be Determined Needs Prior to Discharge: Needs Prior to Discharge: To Be Determined;OT/PT Evaluation;Accepting Facility;Bed Availability;Discharge Transportation;Precertification Post-Acute Discharge Plan: Patient is a 84 year old male with pmhx of HTN and dementia. Patient was a trauma consult for ground-level fall on 10-27-2024. Patient lives at [facility] and needs minimal assistance with ADLs. He has a walker, cane and wheelchair that he uses sometimes. Plan is for patient to go to OR today. Patient will need PT/OT evals but will likely have facility needs at me. Son asked CM to send referral to [facility] for them to follow for acceptance. [facility] was also supposed to start therapy with him Thursday but obviously cannot now due to new injury. He will need auth and transport. Cm will continue to follow. SIGNATURE: Caprice Chiu RN PATIENT NAME: Anastacio Patel DATE: October 28, 2024 TIME: 9:48 AM [facility] 10-28-2024 Note HNO ID: [id number] Author: RALPH BEVERLY LPN Service: ? Author Type: LICENSED NURSE Type: Progress Notes Filed: 10/28/2024 06:50 Note Text: Scan on 10/28/2024 2:43 AM by ProviderCandida PA-C: Consultation - Emergency Medicine [facility] 10-28-2024 History of Presen t illness Narrative Scan on 10/28/2024 2:43 AM by ProviderCandida PAColetteC: Consultation - Emergency Medicine documented in this encounter [facility] 10-27-2024 Telephone encounter Note Phoned [facility] and spoke to Sarahi and went over notes below from Dr Rubin with understanding. [facility] 10-27-2024 Miscellaneous Notes Phoned [facility] and spoke to Sarahi and went over notes below from Dr Rubin with understanding. Let nursing know that I was never made aware till now that the patient had started seeing pain management. All future controlled pain meds will need to come from pain management. I will not longer be writing for them. A patient should never be receiving a narcotic from two different providers. Sarahi nurse at [facility] called and is notified of providers message and instructions. She voices understanding and states changing the orders to, "change the orders to 1/2-1 tab every 6 hrs as needed for pain with a max of three pills a day", would probably be the best. She states the Pt already sees pain management and he was just there on Thursday. They increased his Butrans patch from 5 mg to 10 mg weekly, and it gets changed weekly. She said she doesn't think this has been helping the Pt much with his pain. The also ordered an MRI of the Pts back. She states the Pt has been taking the 50 mg Tramadol routine at 5 am and again between 7-8 pm, then he will have Tylenol extra strength 1000 mg at 8 am with breakfast, She states the Pt is in severe pain all the time and it never goes away. She states his pain is usually at a 7-10/10 pain in his back. She states Pt has a friend that is a nurse at [facility] and she had suggested to him that he ask for the 25 mg Tramadol for breakthrough pain in the afternoon. Please fax new pain medication orders back to [place]. Julieta Lee, MICHAEL Contact [facility] and speak with patient's nurse and let her know I received the fax for the request for the tramadol 25 mg in the afternoon for breack though pain.. she if she feels it would be better to just change the orders to 1/2-1 tab every 6 hrs as needed for pain with a max of three pills a day. Also see if they feel consulting care for pain control would be a good idea? documented in this encounter [facility] 10-26-2024 Telephone encounter Note Let nursing know that I was never made aware till now that the patient had started seeing pain management. All future controlled pain meds will need to come from pain management. I will not longer be writing for them. A patient should never be receiving a narcotic from two different providers. [facility] 10-26-2024 Telephone encounter Note Sarahi nurse at [facility] called and is notified of providers message and instructions. She voices understanding and states changing the orders to, "change the orders to 1/2-1 tab every 6 hrs as needed for pain with a max of three pills a day", would probably be the best. She states the Pt already sees pain management and he was just there on Thursday. They increased his Butrans patch from 5 mg to 10 mg weekly, and it gets changed weekly. She said she doesn't think this has been helping the Pt much with his pain. The also ordered an MRI of the Pts back. She states the Pt has been taking the 50 mg Tramadol routine at 5 am and again between 7-8 pm, then he will have Tylenol extra strength 1000 mg at 8 am with breakfast, She states the Pt is in severe pain all the time and it never goes away. She states his pain is usually at a 7-10/10 pain in his back. She states Pt has a friend that is a nurse at [facility] and she had suggested to him that he ask for the 25 mg Tramadol for breakthrough pain in the afternoon. Please fax new pain medication orders back to [place]. Julieta Lee, MICHAEL [facility] 10-25-2024 Telephone encounter Note Contact [facility] and speak with patient's nurse and let her know I received the fax for the request for the tramadol 25 mg in the afternoon for breack though pain.. she if she feels it would be better to just change the orders to 1/2-1 tab every 6 hrs as needed for pain with a max of three pills a day. Also see if they feel consulting care for pain control would be a good idea? [facility] 10-19-2024 Telephone encounter Note The following approved medication requests have been transmitted electronically. Requested Prescriptions Signed Prescriptions Disp Refills docusate sodium (COLACE) 100 mg capsule 60 capsule 11 Sig: Take 1 capsule by mouth two times a day as needed for constipation. Authorizing Provider: PIERO RUBIN MD [facility] 10-19-2024 Miscellaneous Notes The following approved medication requests have been transmitted electronically. Requested Prescriptions Signed Prescriptions Disp Refills docusate sodium (COLACE) 100 mg capsule 60 capsule 11 Sig: Take 1 capsule by mouth two times a day as needed for constipation. Authorizing Provider: PIERO RUBIN MD Spoke with Eva at [facility] who transferred call to nurse line. No answer and call was ended. Called back and advised Eva what was needed. She was able to confirm that pt uses [facility] and will let nursing staff know to add this when requesting a med or refill. Ralph Beverly LPN Received message from [place] [facility] regarding patient wanting a daily stool softner. Advise nursing at [facility] I can send in a script for colace twice a day. I just need to know what pharmacy they want it sent to. It would be helpful in the future to include info regarding choice of pharmacy when requesting a medication. documented in this encounter [facility] 10-19-2024 Telephone encounter Note Spoke with Eva at [facility] who transferred call to nurse line. No answer and call was ended. Called back and advised Eva what was needed. She was able to confirm that pt uses [facility] and will let nursing staff know to add this when requesting a med or refill. Ralph Beverly LPN [facility] 10-18-2024 Telephone encounter Note Received message from [place] regarding patient wanting a daily stool softner. Advise nursing at [facility] I can send in a script for colace twice a day. I just need to know what pharmacy they want it sent to. It would be helpful in the future to include info regarding choice of pharmacy when requesting a medication. [facility] 09-27-2024 Telephone encounter Note The following approved medication requests have been transmitted electronically. Requested Prescriptions Signed Prescriptions Disp Refills traMADol (ULTRAM) 50 mg tablet 90 tablet 1 Sig: Take 1 tablet by mouth every 8 hours as needed for pain for up to 60 days. Authorizing Provider: PIERO RUBIN MD PDMP website checked and validated. All prescriptions have been APPROPRIATELY filled. No suspicious activity was identified. 09/27/2024 by Piero Rubin MD [facility] 09-27-2024 Miscellaneous Notes The following approved medication requests have been transmitted electronically. Requested Prescriptions Signed Prescriptions Disp Refills traMADol (ULTRAM) 50 mg tablet 90 tablet 1 Sig: Take 1 tablet by mouth every 8 hours as needed for pain for up to 60 days. Authorizing Provider: PIERO RUBIN MD PDMP website checked and validated. All prescriptions have been APPROPRIATELY filled. No suspicious activity was identified. 09/27/2024 by Piero Rubin MD Received fax from [facility] requesting refill of pt's prn Tramadol 50 mg every 8 hours. Send to [facility]. Requesting to be notified via fax when rx has been sent to pharm. Fax on pcp's desk for review. Order pended. Ralph Beverly LPN documented in this encounter [facility] 09-27-2024 Telephone encounter Note Received fax from Lisa requesting refill of pt's prn Tramadol 50 mg every 8 hours. Send to [facility]. Requesting to be notified via fax when rx has been sent to pharm. Fax on pcp's desk for review. Order pended. Ralph Beverly LPN [facility] 08-26-2024 Telephone encounter Note Already addressed in another encounter. Dr. Rubin aware. Franchesca Bautista MA [facility] 08-26-2024 Miscellaneous Notes Already addressed in another encounter. Dr. Rubin aware. Franchesca Bautista MA Received fax from [facility] on patient. He pulled a muscle in his back and he has been using tramadol prn. Patient requesting muscle relaxer. Please advise Lisa that patient already has Baclofen 10 mg TID prn muscle spam's ordered. documented in this encounter [facility] 08-26-2024 Telephone encounter Note Received fax from [place] on patient. He pulled a muscle in his back and he has been using tramadol prn. Patient requesting muscle relaxer. Please advise Lisa that patient already has Baclofen 10 mg TID prn muscle spam's ordered. [facility] 08-26-2024 Telephone encounter Note Disregarded. Franchesca Bautista MA [facility] 08-26-2024 Miscellaneous Notes Disregarded. Franchesca Bautista MA Issa from [place] calling, they sent a fax requesting a muscle relaxer for patient. They are asking to please disregard fax. Patient already has baclofen on file with them. documented in this encounter [facility] 08-26-2024 Telephone encounter Note Issa from [place] calling, they sent a fax requesting a muscle relaxer for patient. They are asking to please disregard fax. Patient already has baclofen on file with them. [facility] 07-29-2024 Note HNO ID: [id number] Author: RALPH BEVERLY LPN Service: ? Author Type: LICENSED NURSE Type: Progress Notes Filed: 07/29/2024 14:26 Note Text: Scan on 07/29/2024 2:15 PM by Provider, External, PA-C: X-ray [facility] 07-29-2024 History of Presen t illness Narrative Scan on 07/29/2024 2:15 PM by Provider, HEVER Tirado: X-ray documented in this encounter [facility] 05-25-2024 Telephone encounter Note The following approved medication requests have been transmitted electronically. Requested Prescriptions Signed Prescriptions Disp Refills traMADol (ULTRAM) 50 mg tablet 90 tablet 1 Sig: Take 1 tablet by mouth every 8 hours as needed for pain for up to 60 days. Authorizing Provider: PIERO RUBIN MD PDMP website checked and validated. All prescriptions have been APPROPRIATELY filled. No suspicious activity was identified. 05/25/2024 by Piero Rubin MD [facility] 05-25-2024 Miscellaneous Notes The following approved medication requests have been transmitted electronically. Requested Prescriptions Signed Prescriptions Disp Refills traMADol (ULTRAM) 50 mg tablet 90 tablet 1 Sig: Take 1 tablet by mouth every 8 hours as needed for pain for up to 60 days. Authorizing Provider: PIERO RUBIN MD PDMP website checked and validated. All prescriptions have been APPROPRIATELY filled. No suspicious activity was identified. 05/25/[address] Rubin I didn't see where the prescription for the tramadol had been sent. The last record was from 09/2023. Here is the pended prescription to be sent to [facility]. Idania Mcdaniels MA documented in this encounter [facility] 05-25-[address] Rubin I didn't see where the prescription for the tramadol had been sent. The last record was from 09/2023. Here is the pended prescription to be sent to [facility]. Idania Mcdaniels MA [facility] 03-11-2024 Note HNO ID: [id number] Author: PIERO RUBIN MD Service: ? Author Type: Physician Type: Progress Notes Filed: 03/11/2024 15:59 Note Text: Chief Complaint Patient presents with: Follow Up HPI Anastacio Patel is a 84 year old male who presents here today for discussion. 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 Patient is currently in [place]. Has dementia and seeing Neuro. Due to his memory issues he is living in assisted living for safety and assistance with his care. Patient is here today with one of his sons (Matt) and a family friend. Patient saw neuro a few months back and had a better MMSE and was told that it should be ok to return home and drive. Patient would be living alone. He has had issues with balance and falls. Casper does not live here and the other son Alcon is the primary intensive care unit nurse but not always able to be with his dad. Past medical history, appointments, medications, allergies reviewed. 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 Previous Surgical History PAST SURGICAL HISTORY Procedure [...] Take 1 tablet by mouth once daily. donepezil (ARICEPT) 10 mg tablet Take 1 tablet by mouth daily at bedtime. Per Neuro: Dr. Gentile. Ipratropium [place] (ATROVENT) 21 mcg (0.03 %) nasal spray Use 2 Sprays in the nose every 12 hours. traMADol (ULTRAM) 50 mg tablet Take 1 tablet by mouth every 8 hours as needed for pain. losartan (COZAAR) 100 mg tablet Take 100 mg by mouth once daily. Take one tablet daily baclofen 10 mg tablet Take 1 tablet by mouth three times daily as needed (muscle spasms). acetaminophen (TYLENOL EXTRA STRENGTH) 500 mg tablet Take 2 tablets by mouth every 8 hours as needed for pain. (Patient taking differently: Take 1,000 mg by mouth every 8 hours as needed for pain. Using Tylenol Arthritis 650mg PRN) DAILY MULTIVITAMIN TAB Take one(1) tablet daily. bisacodyl (DULCOLAX, BISACODYL,) 10 mg supp 1 Suppository by RECTAL route once daily as needed for constipation. gabapentin (NEURONTIN) 300 mg capsule Take 1 capsule by mouth three times daily for 180 days. loperamide HCl (IMODIUM) 2 mg tab Take 1 tablet by mouth as needed. For loose stools at [place] hydrocortisone 2.5 % cream Apply 1 application to affected area twice daily. APPLY TO AFFECTED AREAS meclizine (ANTIVERT) 25 mg tab Take 1 tablet by mouth every 6 hours as needed (dizziness). No current facility-administered medications on file prior to visit. Social History Social History Tobacco Use Smoking status: Former Packs/day: 0.25 Years: 30.00 Additional pack years: 0.00 Total pack years: 7.50 Types: Cigarettes Quit date: 03/15/1990 Years since quittin.0 Smokeless tobacco: Never Tobacco comments: Quit smoking in his 50s. Substance Use Topics Alcohol use: Yes Alcohol/week: 1.0 standard drink of alcohol Types: 1 Cans of beer per week Comment: Occasional. Drug use: No Review of Symptoms REVIEW OF SYSTEMS NA EXAM: BP 140/80 (BP Site: Right Arm, BP Position: Sitting, BP Cuff Size: Regular Adult) Pulse 68 Resp 16 Wt 51.7 kg (114 lb) BMI 19.95 kg/m? General Appearance: Well appearing, alert, in no acute distress, well-hydrated, well nourished.. Psych: mood was normal and upset at times but not confrontational. Affect was nl. Patient is slow to get up out of a chair and balance is slight (more content not included)... [facility] 03-11-2024 History of Presen t illness Narrative Chief Complaint Patient presents with: Follow Up HPI Anastacio Patel is a 84 year old male who presents here today for discussion. 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 Patient is currently in [place]. Has dementia and seeing Neuro. Due to his memory issues he is living in assisted living for safety and assistance with his care. Patient is here today with one of his sons (Matt) and a family friend. Patient saw neuro a few months back and had a better MMSE and was told that it should be ok to return home and drive. Patient would be living alone. He has had issues with balance and falls. Casper does not live here and the other son Alcon is the primary intensive care unit nurse but not always able to be with his dad. Past medical history, appointments, medications, allergies reviewed. 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 Previous Surgical History PAST SURGICAL HISTORY Procedure [...] Take 1 tablet by mouth once daily. donepezil (ARICEPT) 10 mg tablet Take 1 tablet by mouth daily at bedtime. Per Neuro: Dr. Gentile. Ipratropium [place] (ATROVENT) 21 mcg (0.03 %) nasal spray Use 2 Sprays in the nose every 12 hours. traMADol (ULTRAM) 50 mg tablet Take 1 tablet by mouth every 8 hours as needed for pain. losartan (COZAAR) 100 mg tablet Take 100 mg by mouth once daily. Take one tablet daily baclofen 10 mg tablet Take 1 tablet by mouth three times daily as needed (muscle spasms). acetaminophen (TYLENOL EXTRA STRENGTH) 500 mg tablet Take 2 tablets by mouth every 8 hours as needed for pain. (Patient taking differently: Take 1,000 mg by mouth every 8 hours as needed for pain. Using Tylenol Arthritis 650mg PRN) DAILY MULTIVITAMIN TAB Take one(1) tablet daily. bisacodyl (DULCOLAX, BISACODYL,) 10 mg supp 1 Suppository by RECTAL route once daily as needed for constipation. gabapentin (NEURONTIN) 300 mg capsule Take 1 capsule by mouth three times daily for 180 days. loperamide HCl (IMODIUM) 2 mg tab Take 1 tablet by mouth as needed. For loose stools at [place] hydrocortisone 2.5 % cream Apply 1 application to affected area twice daily. APPLY TO AFFECTED AREAS meclizine (ANTIVERT) 25 mg tab Take 1 tablet by mouth every 6 hours as needed (dizziness). No current facility-administered medications on file prior to visit. Social History Social History Tobacco Use Smoking status: Former Packs/day: 0.25 Years: 30.00 Additional pack years: 0.00 Total pack years: 7.50 Types: Cigarettes Quit date: 03/15/1990 Years since quittin.0 Smokeless tobacco: Never Tobacco comments: Quit smoking in his 50s. Substance Use Topics Alcohol use: Yes Alcohol/week: 1.0 standard drink of alcohol Types: 1 Cans of beer per week Comment: Occasional. Drug use: No Review of Symptoms REVIEW OF SYSTEMS NA EXAM: BP 140/80 (BP Site: Right Arm, BP Position: Sitting, BP Cuff Size: Regular Adult) Pulse 68 Resp 16 Wt 51.7 kg (114 lb) BMI 19.95 kg/m General Appearance: Well appearing, alert, in no acute distress, well-hydrated, well nourished.. Psych: mood was normal and upset at times but not confrontational. Affect was nl. Patient is slow to get up out of a chair and balance is slightly wobbly. His walking is also slowed. Health Maintenance List Covid-19 Vaccine( season) due on 12/28/2023 DTaP,Tdap,Td Vaccine(3 - Tdap) due on 12/25/2024 RSV Vaccine(1 - 1-dose 60+ series) due on 12/25/2024 Diabetes Screening due on 12/25/2026 Influenza Vaccine Completed Advance Directive Discussion Completed Shingrix Vaccine Completed Pneumococcal Vaccine: 65+ Completed Data reviewed A/P ASSESSMENT/PLAN: 1. Dementia, unspecified dementia severity, unspecified dementia type, unspecified whether behavioral, psychotic, or mood disturbance or anxiety (HCC) - ICD9: 294.20, ICD10: F03.90 (primary diagnosis) - see below 2. Risk for falls - ICD9: V15.88, ICD10: Z91.81 Discussed with patient in the presence of family that I disagree with Neuro and due to his dementia and mobility issues I do not feel it would be safe for him to return home to live by himself unless he had a aid present 08/06. I stressed concern about him losing the social contact that he now gets at [place] and how this can negatively affect his longevity. I also do not think he should be driving at all. F/u next routine I spent a total of 30 minutes on the date of the service which included preparing to see the patient, [id number] patient care, completing clinical documentation, performing a medically appropriate examination, counseling and educating the patient/family/caregiver and ordering medications, tests, or procedures. Piero Rubin MD documented in this encounter [facility] 02-19-2024 Miscellaneous Notes Mailed letter again. Idania Mcdaniels MA Patient's Son Alcon says that he just needs a copy sent to patient at [place]. Alcon states that brother already has a copy. Alcon wanting a copy to be sent to patient at [place] so that patient can read it. Alcon does not want to be the one to give it to patient. Alcon thinks patient will listen to it more if it is mailed to him from provider. [address] [place] [address]. Kellie Eason RN Unable to reach patient's son Alcon. Left VM to return call to office. Please read below and advise. Annemarie Araya MA Ask elsi if he is wanting a copy for himself and his dad. If so can we just print off copies for Alcon to crab picker in [facility] envelopes? One with Alcon's name and one with Anastacio's name both signed by me. Patient son Alcon calling asking for a copy of the letter Dr Rubin sent to his brother, make copy of that and send to his father at [place] at [address], [address], [place]. His father had dementia and is continuing to try to be able to drive and leave [place]. He said father can not be alone needs assistance with ambulating. They have taken his car from him also. Please advise documented in this encounter [facility] 02-02-2024 Miscellaneous Notes Spoke with Son and he would like letter mailed to his brother Matt Castaneda and he is POA of Financial and Alcon is POA over patient. He would also like this sent to [place] for his dad's record. BERNARD Feldman [address] [place] [address] Let Alcon know I have written a letter. I also received Shahana Estrada's office note and there is no mention in it that he felt the patient was safe to drive or move out of assisted living. Nothing was mentioned regarding this at all either way. Patient's son Alcon and his brother and sister were also at the appointment. Because his dad scored [address] Dr. Harkins said it was ok for him to go and possibly drive. Alcon was very upset because they pretty much had everything planned for his dad to stay at [place] and now this Doctor has put back in his head that he can go home. Alcon said his said he will need to get a lift and other things at home to help him. He is not in a travon hurry to get home because he is still having issues with his back. The family has talked about legal and but they holding off until they absolutely have to. He is asking for just a letter with Dr. Rubin's opinion on his Dad's condition. Alcon said he would be happy to talk with Dr. Rubin directly if that is helpful. He and his family appreciates any help to keep his dad and potentially other's safe. Idania Mcdaniels MA Find out from Alcon what he is needing? My question for him is was he able to be present at his dad's appt and did he question Dr. Harkins when he said it was ok for his dad to go home from [place] and continue to drive in light of his dad's dementia and your concern for his safety living on his own. Based on a MMSE of 21 and my face to face encounters with his dad I do not feel he should be driving nor do I feel it's safe for him to go home. However I can not force him to stay at [place]. That is the responsibility of his family. They may have to pursue the legal avenue of going to court to get his dad declared incompetent and they they then seek guardianship. Patient's son, Alcon calling to say patient saw Dr. Bertha LOMAX today and was told at that office visit that he is okay for patient to go home from [facility] and to drive. Patient's son says this is totally opposite of the PCP recommendation. Son is asking if PCP can return call to discuss. Alcon's ph # [phone]. Miranda Garner, RN documented in this encounter [facility] 02-02-2024 History of Presen t illness Narrative Scan on 02/01/2024 12:20 PM by Provider, HEVER Tirado: Consultation - Neurology documented in this encounter [facility] 12-26-2023 Miscellaneous Notes Patient's son notified of results and provider's instructions. Patient's son verbalizes understanding. Ralph Beverly LPN Let son (Alcon) know his dad's urine test and complete electrolyte panel were ok other then showing he is dehydrated and needs to try to drink more water daily. His CBC is improved. His lipid panel is ok. documented in this encounter [facility] 12-25-2023 Instructions Piero Rubin MD - 12/25/2023 10:30 AM EST Screening schedule The following prevention plan is recommended: Advance Directive Discussion due on 11/16/2023 WHAT YOU CAN DO TO PREVENT FALLS Many falls can be prevented. By making some changes, you can lower your chances of falling. Four things YOU can do to prevent falls for you* and your caregiver 1. Begin a regular exercise program Exercise is one of the most important ways to lower your chances of falling. It makes you stronger and helps you feel better. Exercises that improve balance and coordination (like Marcelo Chi) are the most helpful. Lack of exercise leads to weakness and increases your chances of falling. Ask your doctor or health care provider about the best type of exercise program for you. 2. Have your health care provider review your medicines Have your doctor or pharmacist review all the medicines you take, even [id number] medicines. As you get older, the way medicines work in your body can change. Some medicines, or combinations of medicines, can make you sleepy or dizzy and can cause you to fall. 3. Have your vision checked Have your eyes checked by an eye doctor at least once a year. You may be wearing the wrong glasses or have a condition like glaucoma or cataracts that limits your vision. Poor vision can increase your chances of falling. 4. Make your home safer About half of all falls happen at home. To make your home safer: Remove things you can trip over (like papers, books, clothes, and shoes) from stairs and places where you walk. Remove small throw rugs or use double-sided tape to keep the rugs from slipping. Keep items you use often in cabinets you can reach easily without using a step stool. Have grab bars put in next to your toilet and in the tub or shower. Use non-slip mats in the bathtub and on shower floors. Improve the lighting in your home. As you get older, you need brighter lights to see well. Hang light-weight curtains or shades to reduce glare. Have handrails and lights put in on all staircases. Wear shoes both inside and outside the house. Avoid going barefoot or wearing slippers. For more information, contact: Centers for Disease Control and Prevention www.cdc.gov/injury * This information may not apply if you have certain medical conditions. documented in this encounter [facility] 12-25-2023 History of Presen t illness Narrative Anastacio Patel is a 83 year old male here for a Medicare wellness visit. Medicare Health Risk Assessment General Health Good Exercise: Minutes/Day 20 min Exercise: Days/Week 7 days Alcohol: Daily Use Never Alcohol: Drinks/Day Patient does not drink Alcohol: 6 or more drinks Never Feel off balance No Concerns: Teeth/Dentures No Concerns: Sexual function No Troubled by feelings None of the above Frequency: Eating healthy diet Several days ADLs requiring help Bathing; Taking medications Safety precautions in home/vehicle Yes Smoke, vape, chews tobacco No Difficulty hearing No Difficulty seeing Yes Current Providers Specialists: I have reviewed specialist-related care of the patient in the medical record. Current care team: Patient Care Team: Piero Rubin MD as PCP - General (Family Medicine) Dr. Gentile Medical/Family history review Reviewed and updated problem list, medical/surgical/family/social history, medications, and allergies. Opioid use review Opioid Medications (last 90 days) Some values may be hidden. Unless noted otherwise, only the newest values recorded on each date are displayed. Opioid Medications traMADol (ULTRAM) 50 mg tablet Dose: 50 mg EVERY 8 HOURS NEEDED Starting date: 07/01/2023 Ending date: 10/01/2023 (Discontinued) traMADol (ULTRAM) 50 mg tablet Dose: 50 mg EVERY 8 HOURS NEEDED Starting date: 10/02/2023 (active) Prescribed tramadol HCl (last 90 days) Does patient have risk factors for opioid abuse? No Pain overview Current pain concerns and treatment plan reviewed. Patient under the care of a specialist. Depression screening Depression Screening PHQ-2 Score 12/25/2023 0 Depression screening tool completed and reviewed. Based on score and interview, patient is not at risk for depression. Screening tool discussed with patient, and I recommended no further intervention at this time. Cognitive screening Cognitive screening reviewed and patient with known dementia and seeing Neurology Functional Observation Was the patient's Timed Up & Go test unsteady or ? 12 seconds? No Advance Care Planning Surrogate decision maker and/or advance care plan documented Measurements BP 118/72 Pulse 69 Resp 16 Ht 5' 3.386" (1.61m) Wt 108 lb (49.0kg) SpO2 93% BMI 18.90 kg/(m^2). Seeing optho as needed. Additional screenings: No results found. Assessment/Plan Medicare annual wellness visit, subsequent (Z00.00) - Counseled on healthy diet and regular exercise - Fall avoidance information provided - Personalized prevention plan provided See below Chief Complaint Patient presents with: Medicare Wellness Exam HPI Anastacio Patel is a 83 year old male who presents here today for Chronic Medical Conditions. and Medicare Annual Visit. 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 Patient is currently in [place]. Has dementia and seeing Neuro. Due to his memory issues he is living in assisted living for safety and assistance with his care. Any new concerns today? No. Would like to return to living in his own home which would be alone. Any recent ER/hospital visits? Seen in ER 10/02/2023 after a fall that caused a bilateral sacra fracture. Just had an injection in the lower back on Thursday this week by pain management and feels it has helped a lot. Past medical history, appointments, medications, allergies reviewed. 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 donepezil (ARICEPT) 10 mg tablet Take 1 tablet by mouth daily at bedtime. Per Neuro: Dr. Gentile. Ipratropium [place] (ATROVENT) 21 mcg (0.03 %) nasal spray Use 2 Sprays in the nose every 12 hours. traMADol (ULTRAM) 50 mg tablet Take 1 tablet by mouth every 8 hours as needed for pain. bisacodyl (DULCOLAX, BISACODYL,) 10 mg supp 1 Suppository by RECTAL route once daily as needed for constipation. gabapentin (NEURONTIN) 300 mg capsule Take 1 capsule by mouth three times daily for 180 days. losartan (COZAAR) 100 mg tablet Take 100 mg by mouth once daily. Take one tablet daily baclofen 10 mg tablet Take 1 tablet by mouth three times daily as needed (muscle spasms). acetaminophen (TYLENOL EXTRA STRENGTH) 500 mg tablet Take 2 tablets by mouth every 8 hours as needed for pain. (Patient taking differently: Take 1,000 mg by mouth every 8 hours as needed for pain. Using Tylenol Arthritis 650mg PRN) loperamide HCl (IMODIUM) 2 mg tab Take 1 tablet by mouth as needed. For loose stools at [place] hydrocortisone 2.5 % cream Apply 1 application to affected area twice daily. APPLY TO AFFECTED AREAS meclizine (ANTIVERT) 25 mg tab Take 1 tablet by mouth every 6 hours as needed (dizziness). DAILY MULTIVITAMIN TAB Take one(1) tablet daily. No current facility-administered medications on file prior to visit. Social History Social History Tobacco Use Smoking status: Former Packs/day: 0.25 Years: 30.00 Additional pack years: 0.00 Total pack years: 7.50 Types: Cigarettes Quit date: 03/15/1990 Years since quittin.7 Smokeless tobacco: Never Tobacco comments: Quit smoking in his 50s. Substance Use Topics Alcohol use: Yes Alcohol/week: 1.0 standard drink of alcohol Types: 1 Cans of beer per week Comment: Occasional. Drug use: No Review of Symptoms REVIEW OF SYSTEMS GENERAL: No weight loss, malaise or fevers HEENT: Negative for frequent or significant headaches, [...] diarrhea, No heartburn or reflux symptoms, and no blood : No history of dysuria, blood MUSCULOSKELETAL: seeing pain pain management for the low back pain SKIN: Negative for lesions, rash, and itching PSYCH: Negative for sleep disturbance, mood disorder and recent psychosocial stressors HEMATOLOGY/LYMPHOLOGY: Negative for prolonged bleeding, bruising easily or swollen nodes ENDOCRINE: Negative for cold or heat intolerance, polyuria, polydipsia and goiter NEURO: No history of headaches, syncope, paralysis, seizures or tremors EXAM: BP 118/72 Pulse 69 Resp 16 Ht 161 cm (5' 3.39") Wt 49 kg (108 lb) SpO2 93% BMI 18.90 kg/m Last 4 Encounter Wt Readings: Date: Wt: 12/25/2023 49 kg (108 lb) 06/18/2023 51.7 kg (114 lb) 04/17/2023 50 kg (110 lb 3.2 oz) 01/01/2023 50.3 kg (111 lb) General Appearance: Well appearing, alert, in no acute distress, well-hydrated, well nourished. and Thin. Skin: Skin color, texture, turgor normal, no suspicious rashes or lesions. Head: Normocephalic, no masses, lesions, tenderness or abnormalities. Eyes: Anicteric sclera. Pupils are equally round and reactive to light. Extraocular movements are intact. . Ears: External ears, TM's normal, canals clear. Nose/Sinuses: Nares normal, septum midline, mucosa normal, no drainage or sinus tenderness. Oropharynx: Lips, mucosa, and tongue normal, teeth and gums normal, oropharynx normal. Neck: Supple, no adenopathy; thyroid symmetric, normal size, no bruits. Lungs: few dry scattered crackles bilaterally. . Heart: Negative findings: regular rate and rhythm, S1 normal, S2 normal, no ubs, clicks or gallops, Positive findings: murmur: 1/6 systolic low pitched soft murmur URSB . Abdomen: Normal abdominal exam, Abdomen soft, non-tender. Bowel sounds normal. No masses, organomegaly. Extremities: No deformities, edema, skin discoloration, Good capillary refill. . Musculoskeletal: Muscular strength intact, No joint swelling, deformity, or tenderness. Peripheral Pulses: Normal. Neurologic: Gait normal. Reflexes normal and symmetric. Sensation to light touch and crainal nerves 2-12 intact.. Health Maintenance List RSV Vaccine(1 - 1-dose 60+ series) Never done DTaP,Tdap,Td Vaccine(3 - Tdap) due on 06/21/2022 Influenza Vaccine(1) due on 07/17/2023 Covid-19 Vaccine(6 - 2022-24 season) due on 07/17/2023 Advance Directive Discussion due on 11/16/2023 Diabetes Screening due on 06/18/2026 Shingrix Vaccine Completed Pneumococcal Vaccine: 65+ Completed Data reviewed Component Latest Ref Rng & Units 08/18/2022 06/18/2023 WBC 3.70 - 11.00 k/uL 5.77 8.24 RBC 4.20 - 6.00 m/uL 3.43 (L) 3.35 (L) Hemoglobin 13.0 - 17.0 g/dL 11.7 (L) 11.3 (L) Hematocrit 39.0 - 51.0 % 35.1 (L) 35.1 (L) MCV 80.0 - 100.0 fL 102.3 (H) 104.8 (H) MCH 26.0 - 34.0 pg 34.1 (H) 33.7 MCHC 30.5 - 36.0 g/dL 33.3 32.2 RDW-CV 11.5 - 15.0 % 15.6 (H) 15.8 (H) Platelet Count 150 - 400 k/uL 186 277 MPV 9.0 - 12.7 fL 12.4 11.4 Neut% % 50.2 65.6 Abs Neut (ANC) 1.45 - 7.50 k/uL 2.90 5.41 Lymph% % 30.0 18.1 Abs Lymph 1.00 - 4.00 k/uL 1.73 1.49 Morris% % 13.0 13.5 Abs Morris <0.87 k/uL 0.75 1.11 (H) Eosin% % 5.9 2.1 Abs Eosin <0.46 k/uL 0.34 0.17 Baso% % 0.7 0.5 Abs Baso <0.11 k/uL 0.04 0.04 Immature Gran % % 0.2 0.2 IMMATURE GRANS (ABS) <0.10 k/uL <0.03 <0.03 NRBC /100 WBC 0.0 0.0 Absolute nRBC <0.01 k/uL <0.01 <0.01 DTYPE Auto Auto Protein, Total 6.3 - 8.0 g/dL 6.9 7.4 Albumin 3.9 - 4.9 g/dL 4.3 4.4 Calcium 8.5 - 10.2 mg/dL 9.2 9.7 Bilirubin, Total 0.2 - 1.3 mg/dL 0.5 0.4 Alkaline Phosphatase 38 - 113 U/L 38 91 AST 14 - 40 U/L 37 17 ALT 10 - 54 U/L 28 12 Glucose 74 - 99 mg/dL 94 85 BUN 9 - 24 mg/dL 25 (H) 14 Creatinine 0.73 - 1.22 mg/dL 1.21 0.90 Sodium 136 - 144 mmol/L 140 141 Potassium 3.7 - 5.1 mmol/L 5.2 (H) 4.2 Chloride 97 - 105 mmol/L 104 104 CO2 22 - 30 mmol/L 27 26 Anion Gap 9 - 18 mmol/L 9 11 eGFR >=60 mL/min/1.73m 59 (L) 84 Color Yellow Light Yellow Clarity Clear Clear Glucose, Urine Negative Negative Bilirubin, Urine Negative Negative Ketones, Urine Negative Negative Specific [place], Ur 1.005 - 1.030 1.015 Hemoglobin/Blood,Ur Negative Negative pH, Urine 5.0 - 8.0 5.5 Protein, Urine Negative Negative Urobilinogen Negative Negative Nitrites Negative Negative Leukest Negative Negative WBC, Urine 0-5 /HPF 0-5 /HPF RBC, Urine 0-3 /HPF 0-3 /HPF Total Cholesterol, Nonfasting <200 mg/dL 196 Triglycerides, Nonfasting <150 mg/dL 34 HDL Cholesterol, Nonfasting >39 mg/dL 122 LDL Cholesterol, Nonfasting <100 mg/dL 67 Non HDL Cholesterol, Nonfasting <130 mg/dL 74 VLDL Cholesterol, Nonfasting <30 mg/dL 7 Total Chol/HDL Ratio, Nonfasting <5.10 mg/dL 1.61 LDL/HDL Ratio, Nonfasting <2.54 mg/dL 0.55 TSH 0.270 - 4.200 mIU/L 2.150 A/P ASSESSMENT/PLAN: 1. Medicare annual wellness visit, subsequent - ICD9: V70.0, ICD10: Z00.00 (primary diagnosis) - Counseled on healthy diet and regular exercise - Follow up for annual exam in one year - discussed with patient that medically and for his safety it would be best for him to stay in assisted living at [facility]. 2. Benign hypertension - ICD9: 401.1, ICD10: I10 - Controlled - Continue current medications - Recommend home blood pressure monitoring, to bring results to next visit - Encouraged sodium restriction, DASH or Mediterranean diet - Recommend regular aerobic exercise Check - COMP METABOLIC PANEL - LIPID PANEL, NONFASTING - URINALYSIS, WITH MICROSCOPIC 3. History of recurrent TIAs - ICD9: V12.54, ICD10: Z86.73 - clinically stable 4. Dementia, unspecified dementia severity, unspecified dementia type, unspecified whether behavioral, psychotic, or mood disturbance or anxiety (HCC) - ICD9: 294.20, ICD10: F03.90 - cont f/u with Neuro 5. Macrocytic anemia - ICD9: 281.9, ICD10: D53.9 Check - CBC + DIFF 6. T12 compression fracture, initial encounter ([facility]) - ICD9: 805.2, ICD10: S22.080A - seeing pain management 7. Bronchiectasis without complication ([facility]) - ICD9: 494.0, ICD10: J47.9 - management per pulm 8. Valvular heart disease - ICD9: 424.90, ICD10: I38 - clinically stable. F/u in a year for extensive exam. I spent a total of 40 minutes on the date of the service which included preparing to see the patient, [id number] patient care, completing clinical documentation, performing a medically appropriate examination, counseling and educating the patient/family/caregiver and ordering medications, tests, or procedures. Piero Rubin MD documented in this encounter [facility] 12-22-2023 Miscellaneous Notes Addended by: IDANIA MCDANIELS on: 12/22/2023 11:32 AM Modules accepted: Orders Faxed to [facility]. Faxed notification back to [place]. Idania Mcdaniels MA The following approved medication requests have been transmitted electronically. Requested Prescriptions Signed Prescriptions Disp Refills finasteride (PROPECIA) 1 mg tablet 90 tablet 3 Sig: Take 1 tablet by mouth once daily. Authorizing Provider: INES CHATTERJEE PA-C Received a faxed from [facility] [place] they are requesting a refill be sent on his Finasteride 1 mg take one tablet daily sent to [facility]. Fax on also on PCP desk. Idania Mcdaniels MA documented in this encounter [facility] 10-26-2023 Miscellaneous Notes Addended by: PIERO RUBIN on: 10/26/2023 07:00 PM Modules accepted: Orders documented in this encounter [facility] 10-26-2023 History of Presen t illness Narrative Scan on 10/26/2023 1:00 PM by Provider, HEVER Tirado: Consultation - Neurology documented in this encounter [facility] 10-05-2023 History of Presen t illness Narrative Radiology Service Progress Note PATIENT [...] IV DATA: Not applicable SIGNED BY: RT Ivan(R) October 05, 2023 12:18 PM documented in this encounter [facility] 10-02-2023 Miscellaneous Notes The following approved medication requests have been transmitted electronically. Requested Prescriptions Signed Prescriptions Disp Refills bisacodyl (DULCOLAX, BISACODYL,) 10 mg supp 30 Each 2 Si Suppository by RECTAL route once daily as needed for constipation. Authorizing Provider: PIERO RUBIN MD Fax received from [place] stating patient is complaining of constipation and requesting an order for suppository. documented in this encounter [facility] 10-02-2023 Discharge summary Note Date/Time October 02, 2023 6:16pm [facility] Medical Records Department [address] [place] [address] Emergency Department Summary 10/02/23 MR#: [id number] Acct: [id number] Name: ANASTACIO PTAEL Rep #:[id number] : 1940 83 From: Won Santacruz MD PCP: Dr. Piero Rubin MD Status:REG ER Location: ED HPI History of Present Illness Chief Complaint: Weakness Detail of Chief Complaint: Reported abdominal pain earlier today with diarrhea Informant: patient, family and SNF Onset/Context/Timing Onset: - (Concern for impaction with diarrhea) Context: Sudden Onset Timing: Intermittent Quality: Per HPI narrative Location: GI Current Severity: Gone Maximum Severity: Moderate Worsened by: Unknown Relieved by: Patient was given laxatives Associated Symptoms Associated Symptoms: Initially abdominal discomfort and bloating Narrative Narrative: Patient is an 83-year-old male who presents from nursing facility. He apparently was constipated. He was given medicine to help him move his bowels. He now has diarrhea. The nurse at the facility believes he has an impaction. Patient presently denies abdominal pain. He denies being bloated. He does endorse problems with constipation prior to receiving MiraLAX and milk of mag. There is been no documented fever. He denies fever or chills. He denies headache, visual, ocular auditory symptoms. He denies cardiac or respiratory symptoms. He denies urologic symptoms. Prior similar symptoms: Yes Recent Illness/Hospitalization: No PFSH PFSH Medical History Debility Frequent falls HTN (hypertension) Hypertension Lung nodule seen on imaging study Pulmonary infiltrates on CXR Rhabdomyolysis Sacral fracture, closed Thrombocytopenia Home Medications baclofen 10 mg tablet 5 mg (1/2 x 10 mg) PO TID PRN Muscle Spasm 30 days #90 tabs 05/12/23 [Rx Last Taken Unknown] gabapentin 300 mg capsule 300 mg PO TID 30 days #90 caps 05/12/23 [Rx Last Taken Unknown] losartan 100 mg tablet 100 mg PO DAILY 30 days #30 tabs 05/12/23 [Rx Last Taken Unknown] tramadol 50 mg tablet 50 mg PO Q8H PRN 07/15/23 [History Last Taken Unknown] acetaminophen 325 mg tablet (Tylenol) 650 mg PO Q4H PRN 10/01/23 [History Last Taken Unknown] acetaminophen 650 mg tablet,extended release (Tylenol 8 Hour) 650 mg PO Q8H 10/01/23 [History Last Taken Unknown] finasteride 1 mg tablet 1 mg PO DAILY 10/01/23 [History Last Taken Unknown] melatonin 5 mg capsule mg PO QHS PRN 10/01/23 [History Last Taken Unknown] multivitamin (Multiple Vitamins tablet) 1 tab PO DAILY 10/01/23 [History Last Taken Unknown] Allergy/AdvReac Type Severity Reaction Status Date / Time No Known Allergies Allergy Verified 10/01/23 09:05 Family History Other Dementia Surgical History History of appendectomy History of splenectomy Social History household members: none Smoking Status: Former smoker alcohol intake: never substance use type: does not use ROS ROS ED Constitutional Constitutional ED: Denies chills, fever(s), subjective, sweats or weight loss Eyes Eyes: Denies blurry vision, change in vision or diplopia ENT ENT ED: Denies ear pain, rhinorrhea or sore throat Cardiovascular Cardiovascular: Denies chest pain, orthopnea, palpitations or paroxysmal nocturnal dyspnea Respiratory/Chest Respiratory/Chest: Denies cough, dyspnea, dyspnea on exertion, orthopnea or paroxysmal nocturnal dyspnea Gastrointestinal Gastrointestinal: Reports abdominal pain, constipation, diarrhea and other Details: Detailed in the HPI narrative ; Denies nausea or vomiting Genitourinary Genitourinary ED: Denies dysuria, hematuria or urinary frequency Musculoskeletal Musculoskeletal: Denies arthralgias, back pain or myalgias Neurologic Neurologic: Reports weakness; Denies headache(s) or paresthesias Endocrine Endocrinology: Denies cold intolerance or heat intolerance Hematologic/Lymphatic Hematologic/Lymphatic: Reports systems reviewed and no addt'l complaints, exceptas documented EXAM Physical Exam Const Vital Signs: 10/02/23 16:37 10/02/23 16:44 10/02/23 16:44 Temperature 98.3 F 98.3 F Temperature Source Oral Oral Pulse Rate 83 83 Respiratory Rate 16 16 Respiratory Effort Normal Blood Pressure 124/69 H 109/67 Blood Pressure Mean 87 81 Pulse Ox 98 97 Oxygen Delivery Method Room Air Room Air Positive well nourished and well developed General Appearance ED: well developed and NAD; Negative for cyanotic, diaphoretic or pallor HEENT Reports moist mucous membranes HEENT Narrative: Head is atraumatic and normocephalic. Ears are normal. Mucosa is moist. Posterior pharynx is normal. Eyes PERRL and EOMs intact bilaterally General Eye ED: Negative for pale conjunctiva or scleral icterus Neck no lymphadenopathy, supple and no JVD Chest Wall inspection of chest normal and palpation of chest normal Resp clear to auscultation bilaterally Cardio regular rate, regular rhythm, S1 normal heart sound, S2 normal heart sound and no murmurs GI non-tender and no masses; Negative for hepatosplenomegaly GI Narrative: Abdomen is tympanitic to percussion. Auscultation: hyperactive bowel sounds Palpation: soft Rectal Exam: normal sphincter tone, prostate normal and other Other Details: Watery fluid noted. There is no evidence of impaction. Narrative: Genitalia is normal. Back/Spine no CVA tenderness Extremity normal to inspection Neuro oriented x3 Psych mental status grossly normal Skin no rashes or lesions noted, no wounds and No skin turgor normal General Skin Exam: Negative for elasticity normal, jaundice or pallor MDM MDM MDM Narrative Medical decision making narrative: Since patient is elderly a CBC was obtained to assess H&H since he has history of anemia in the past. BMP was obtained to assess BUN to creatinine as well as renal function. Also to assess electrolytes and specifically potassium since papi had reported diarrhea since treated for his constipation. X-ray was obtained to determine if there was an impaction higher up that I was not able topalpate on digital exam. History & Record Review Discussion w/independent historian: Patient and Family Lab Data Attestation: I reviewed the patient's lab results. Lab results narrative: Is elevated which is nonspecific. There is no bandemia. H&H is slightly higherthan baseline. This may may represent dehydration from his diarrhea. Basic metabolic panel is unremarkable. BUN/creatinine ratio is slightly elevated at 22.8-1. Labs: Laboratory Results - last 24 hr 10/02/23 16:56 WBC 15.5 H RBC 3.61 L Hgb 11.6 L Hct 35.9 L MCV 99.4 H MCH 32.1 H MCHC 32.3 RDW Std Deviation 62.7 H RDW Coeff of Apolonia 17.0 H Plt Count 240 MPV 12.1 H Immature Gran % (Auto) 0.300 Neut % (Auto) 82.7 H Lymph % (Auto) 7.2 L Morris % (Auto) 9.2 Eos % (Auto) 0.3 Baso % (Auto) 0.3 Absolute Neuts (auto) 12.8 H Absolute Lymphs (auto) 1.12 Nucleated RBC % 0 Sodium 141 Potassium 4.5 Chloride 108 H Carbon Dioxide 28.0 Anion Gap 5 BUN 29 H Creatinine 1.27 Estim Creat Clear Calc 31.95 Est GFR (MDRD) Af Amer 69 Est GFR (MDRD) Non-Af 57 L BUN/Creatinine Ratio 22.8 H Glucose 119 H Calcium 9.7 Radiography Chest X-Ray - ED: Read by ED Physician (Abdominal series was obtained. There isevidence of chronic changes with a nodule in the lung portion. There is no ossific gas pattern noted. There is no evidence of free air. There is no evidence to suggest ileus or obstruction.) Diagnostic Testing: Clinical Impression(s) from Imaging Studies Acute Abdomen Series 10/02/23 17:35 IMPRESSION: 1. Emphysema with known left upper lobe nodule. 2. Nonspecific bowel gas pattern. 3. No pneumoperitoneum. Electronically Signed: Elmer Medina MD at 17:57 EST , Treatment and Re-Evaluation :: And son were informed that his work-up is unremarkable. Since he has a benign exam. His exam was repeated at 1809. Patient not complain of any abdominal pain. Discharge Plan Triage Chief Complaint: Weakness ED Provider: Won Santacruz Dx/Rx/DC Orders Clinical Impression: Diarrhea due to drug, Dementia, Leukocytosis Instructions: Anatomy of the Digestive System Prescriptions: No Action melatonin 5 mg capsule PO QHS PRN Rx Instructions: Give 1 tab by mouth as needed at bedtime for insomnia may have 2 tablets if needed multivitamin [Multiple Vitamins] Tablet 1 tab PO DAILY acetaminophen [Tylenol] 325 mg tablet 650 mg PO Q4H PRN acetaminophen [Tylenol 8 Hour] 650 mg tablet extended release 650 mg PO Q8H Rx Instructions: Give 2 tablets daily by mouth three times a day for arthritis pain finasteride 1 mg tablet 1 mg PO DAILY baclofen 10 mg Tablet 5 mg PO TID PRN (Reason: Muscle Spasm) 30 Days Qty: 90 0RF gabapentin 300 mg Capsule 300 mg PO TID 30 Days Qty: 90 0RF losartan 100 mg Tablet 100 mg PO DAILY 30 Days Qty: 30 0RF tramadol 50 mg tablet 50 mg PO Q8H PRN Primary Care Provider: Piero Rubin Referrals: Piero Rubin MD [Primary Care Provider] - 3-5 Days if not improving Disposition Disposition: Home, Self Care What to do if you have Problems For any increased pain, shortness of breath, bleeding, nausea or vomiting, chestpain, or any unexpected problems, contact your Primary Care Provider. Call [facility] ([phone]) or report to the closest Emergency Room. Call 911 if necessary. 10/02/231815 <Electronically signed by Won Santacruz MD> Cosigner Signature (if applicable): CC: Dr. Piero Rubin MD ~ Signed [facility] Work Phone: 1(405) 669-130111-17-2023 Miscellaneous Notes* Telephone Encounter - Piero Rubin MD - 10/02/2023 12:04 PM EST The following approved medication requests have been transmitted electronically. Requested Prescriptions Signed Prescriptions Disp Refills traMADol (ULTRAM) 50 mg tablet 90 tablet 1 Sig: Take 1 tablet by mouth every 8 hours as needed for pain. Authorizing Provider: PIERO RUBIN MD PDMP website checked and validated. All prescriptions have been APPROPRIATELY filled. No suspiciousactivity was identified. 10/02/2023 by Piero Rubin MD * Telephone Encounter - Ralph Beverly LPN - 10/01/2023 3:33 PM EST Received fax from [employer] requesting refill of tramadol 50 mg one tablet every 8 hours as needed. Please send to [facility]. Fax on your desk. Please review. Not sure if this nurse has the correct pharmacy pended. Ralph Beverly LPN [facility] Miscellaneous Notes* Telephone Encounter - Idania Mcdaniels MA - 07/21/2023 4:22 PM EDT Patient notified and voiced understanding. Idania Mcdaniels MA * Telephone Encounter - Piero Rubin MD - 07/21/2023 3:37 PM EDT Let Alcon know I reached out and was able to talk with Dr. Smith today. We reviewed his dads blood labs and based on the results he is not concerned about any blood cancer. He just re-stated abouthaving the lung nodule monitored and knows that his dad is seeing Pulmonary for this. * Telephone Encounter - Dipti Sheets LPN - 07/21/2023 11:22 AM EDT Patient son Alcon returned call and went over notes below from Alcon Garcia is upset the Dr from [facility] said nothing wrong with his father blood. He wanted to discuss fathers lungs which Shawnsaid already had appt with Pulmonary concerning that. Alcon said if his father has blood cancer he wants to know for sure or not, he already has dementia to deal with. * Telephone Encounter - Idania Mcdaniels MA - 07/21/2023 9:01 AM EDT Left message for patient's son to return call. Idania Mcdaniels MA * Telephone Encounter - Piero Rubin MD - 07/17/2023 1:34 PM EDT Let Alcon know that Dr. Smith from the [facility] reached out to Dr. Rubin to let [...] a blood cancer then he should reschedule thatappt. * Telephone Encounter - Sheeba More Ma - 07/17/2023 12:37 PM EDT Spoke with pt son who stated that they saw Darrell Lee who stated that she was not concerned about the nodules as she thought it was some scarring or due to having had pneumonia. She told pt thatthe MRI was normal and that he needed to repeat in again in 3 months. He is scheduled in sep for this repeat test. Stated that they then saw Hem/onc at [facility] who told pt that his blood was fine and that they were concerned more about his chest. Pt stated they advised the hem/onc provider that they were already seeing explosive specialist for the chest so Hem/onc told pt that they didn't need to follow up with him any more. Unable to find any information or office note from [facility]. Sheeba More Ma * Telephone Encounter - Piero Rubin MD - 07/16/2023 7:05 PM EDT Can we reach out to sonAlcon and see if he can shed some light on why his dad did not see the vending machine assembler/oncologist at [facility], DrStefanie Smith for his abnormal blood work and my concern for Multiple Myeloma? * Telephone Encounter - Idania Mcdaniels MA - 07/16/2023 2:[address] Alfaro and asked if their was a good time for Dr. Rubin to contact him. He indicated that he was also in between patient's. Doctor only saw the son and son indicated that he wanted no mention of cancer. He did explain afterreview of the chart that the nodule had grown but with blood work indicated probable non malignant.He suggest that they follow up with Ct future. Doctor never saw the patient and son got up and left. If you have further questions or concerns you can certainly reach out to him. Idania Mcdaniels MA * Telephone Encounter - Piero Rubin MD - 07/15/2023 7:50 PM EDT Let Annemarie know I tried to return call twice yesterday and both times there was no answer. * Telephone Encounter - Cherrie Qureshi RN - 07/15/2023 10:00 AM EDT Annemarie from [facility] calling. Reports Dr. Smith there is requesting to speak with Dr. Rubin sometime today, if possible, regarding patient. Annemarie states patient and patient's son was there for a consultation today and pt's son declined pt's visit-did not want to discuss cancer. Dr. Smith can be reached at [phone]. Thank you. [facility] Miscellaneous Notes* Telephone Encounter - Idania Mcdaniels MA - 07/14/2023 10:26 AM EDT Faxed referral to [facility]. Idania Mcdaniels MA * Telephone Encounter - Angelica Morillo RN - 07/14/2023 10:03 AM EDT Pt's son Alcon called and is notified of MRI results and providers instructions. He voices understanding. Told we would be faxing over the referral. If he does not hear from [facility] in the next few days, he was given their phone # to call. MRI results should be accessible to the physician so son shouldn't need to get an MRI copy. Angelica Morillo RN * Telephone Encounter - Piero Rubin MD - 07/14/2023 9:01 AM EDT Let son Alcon know his dad's low back MRI shows a compression fracture at T12 and some disc herniation. Referral placed to see [facility] spine. He should try to get a copy of the MRI placed on a disc by [facility] to be able to take to his dads appt. * Telephone Encounter - Idania Mcdaniels MA - 07/13/2023 4:59 PM EDT Received results from [facility] for [facility]. Results on provider desk. Idania Mcdaniels MA [facility] Miscellaneous Notes* Telephone Encounter - Piero Rubin MD - 07/08/2023 7:01 PM EDT Noted. * Telephone Encounter - Idania Mcdaniels MA - 07/08/2023 3:56 PM EDT Contacted son and they are wanting to see if the MRI can be completed sooner at [facility]. [facility] cannot getMRI until 07/23/2023. Son indicated that father has had a few falls since being at [place]. He is complaining off back pain. Faxed order for MRI/Demo to [facility]. Placed referral and emailed our referral department. Idania Mcdaniels MA * Telephone Encounter - Piero Rubin MD - 07/08/2023 3:34 PM EDT So I need to know if there is a specialist he is asking for a referral for? I cant just refer someone to the hospital. * Telephone Encounter - Yassine Grey - 07/08/2023 2:41 PM EDT Pt's son (Alcon) called on behalf of pt, asking for Dr. Rubin to put in a referral to [facility] for backpain issues. Contact Alcon as soon as possible abt referral: [phone] Please advise Yassine Grey [facility] History of Present illness Narrative* Piero Rubin MD - 07/07/2023 3:22 PM EDT Patient's home health 485 form / care plan for certification period 06/08/2023 to 08/06/2023 reviewedand signed. Relevant medical records were reviewed. Changes were communicated to home health agency documented in [facility] encounter[facility]23 Miscellaneous Notes* Telephone Encounter - Idania Mcdaniels MA - 07/04/2023 10:28 AM EDT Son was notified voiced understanding. Please contact to schedule. Idania Mcdaniels MA * Telephone Encounter - Piero Rubin MD - 07/03/2023 5:22 PM EDT Let son know the repeat chest CT shows an increase in the new nodule seen back in April and the concern is for cancer. I have placed an order for a consult to pulmonary. documented in this encounterBl[facility]08-17-2023 Miscellaneous Notes* Telephone Encounter - Ralph Beverly LPN - 07/02/2023 8:16 AM EDT Pt's son notified rx was sent to pharm. Ralph Beverly LPN * Telephone Encounter - Piero Rubin MD - 07/01/2023 10:36 PM EDT Let son know script for tramadol (ultram) sent to pharmacy. The following approved medication requests have been transmitted electronically. Requested Prescriptions Signed Prescriptions Disp Refills traMADol (ULTRAM) 50 mg tablet 90 tablet 1 Sig: Take 1 tablet by mouth every 8 hours as needed for pain. Authorizing Provider: PIERO RUBIN MD * Telephone Encounter - Mirna Parra Ma - 07/01/2023 3:41 PM EDT Spoke to son and advised pcp/team are out of office today. Apologized that he was not informed earlier by university tutor who should of let family know would not be addressed today. Son aware provider publications sales representative will not prescribe anything since not their patient and if pain if debilitating and can not moveneeds to go to ER. Did call [facility] and speak to nursing staff who advised [...] to go to ER. Mirna Parra Ma * Telephone Encounter - Latricia Casas - 07/01/2023 3:28 PM EDT Patient's son called in again to ask if Dr Rubin has called in any medication for him. Requesting something stronger he said he is in a lot of pain very hard time getting out of bed. Please advise Latricia Tinajero * Telephone Encounter - Kellie Eason RN - 07/01/2023 11:48 AM EDT Patient son Alcon calls and states that patient continues to be in a lot of pain. Lisa is havinga hard time getting patient out of bed due to patient's pain. Patient has been taking tylenol extrastrength as prescribed by provider but that is [...] advise, Kellie Eason RN documented in [facility]23 Miscellaneous Notes* Telephone Encounter - Opal Quiroz RN - 06/30/2023 12:18 PM EDT Son (Alcon) calls and results and recommendation reviewed. Alcon verbalizes understanding but requests referral be sent to [facility]. Faxed per request. Opal Quiroz RN * Telephone Encounter - Ralph Beverly LPN - 06/30/2023 11:38 AM EDT Left message for pt's son to contact office. Ralph Beverly LPN * Telephone Encounter - Piero Rubin MD - 06/29/2023 5:19 PM EDT Let patient know his dad's [place] proteins are elevated along with the kappa/lamda ratio. Would likehim to see hematology for further eval especially with the abnormal bone scan. * Telephone Encounter - Miranda Garner RN - 06/29/2023 4:06 PM EDT Patient's son, Alcon calling for lab results done 06/24/23. Miranda Garner RN documented in [facility] encounterBl[facility]23 History of Present illness Narrative* Ralph Beverly LPN - 06/30/2023 11:43 AM EDT Scan on 06/30/2023 8:53 AM by Provider, External, PAColetteC: Consultation - PT/OT/Speech documented in this encounterBluffton Hospital08-09-2023 Miscellaneous Notes* Telephone Encounter - Ralph Beverly LPN - 06/24/2023 2:52 PM EDT Pt's son advised of Dr Rubin's message, verbalizes understanding. Ralph Beverly LPN * Telephone Encounter - Piero Rubin MD - 06/24/2023 12:30 PM EDT Being more active can help if patient is able. Taking tylenol arthritis 650 mg two every 8 hrs (ie. three times a day can help lesson the pain). There is no cure and is an aging issue related to things we did growing up. * Telephone Encounter - Idania Mcdaniels MA - 06/24/2023 8:56 AM EDT Son notified and voiced understanding. Any treatment that would be helpful for the pain? Idania Mcdaniels MA * Telephone Encounter - Piero Rubin MD - 06/23/2023 4:24 PM EDT Let son know the x-ray of both feet show not acute issues. There is mild arthritis in both feet andthis can cause foot pain. documented in this encounterBl[facility]-2023 Miscellaneous Notes* Telephone Encounter - Piero Rubin MD - 06/23/2023 4:04 PM EDT Called son and answered questions. * Telephone Encounter - Ralph Beverly LPN - 06/23/2023 11:27 AM EDT Pt's son advised of Dr Rubin's message [...] him personally if possible. States pt is Burt and he has a couple of questions for Dr Rubin regarding pt thinks he is ready to go home. S on has talked to PT/OT and they do not feel pt is ready. Can reach son at number listed. Ralph Beverly LPN * Telephone Encounter - Piero Rubin MD - 06/22/2023 4:59 PM EDT Let son know the serum protein test shows a possible atypical region and will need some additional labs done. Orders placed. monoclonal protein analysis and serum free light chain analysis documented [facility]23 Miscellaneous Notes* Telephone Encounter - Phil Billy LPN - 06/22/2023 8:16 AM EDT Son notified. Phil Billy LPN * Telephone Encounter - Piero Rubin MD - 06/21/2023 1:56 PM EDT Let son, Alcon, know his dad's blood count shows his chronic anemia is stable and no low platelets. Thyroid lab, electrolytes, liver and kidney functions were all ok. The labs looking into the possibility of multiple myeloma are still pending. documented in this encounterBluff[facility]08-03-2023 History of Present illness Narrative* Savanna De Anda RT(R) - 06/18/2023 2:30 PM EDT Radiology Service Progress Note PATIENT NAME: Anastacio Patel DATE OF SERVICE: June 18, 2023 TIME: 2:24 PM PATIENT IDENTITY VERIFICATION COMPLETED USING TWO (2) IDENTIFIERS: Name and Date of confirmedby patient verbally. FALL SCREENING: Has the patient had 2 falls in the last year or 1 fall with injury or currently using an Ambulatory Assistive Device (Walker, Cane, Wheelchair, Crutches, etc.)? Yes, Patient High Riskfor Falls What interventions were put in place to prevent falls during this visit? Offered Assistance with Transfers/Clothing and Instructed Patient to Remain Seated (Not on Exam Table) Until Exam PATIENT GENDER DATA: Male PATIENT RELEVANT IMPLANT DATA REVIEWED: Not Applicable RADIOLOGY DEPARTMENT: General X-ray: Exam(s) Completed: Lower Extremity X- Ray(s): Foot, Bilateral PERIPHERAL IV DATA: Not applicable SIGNED BY: RT Skyla(R) June 18, 2023 2:24 PM documented in this encounterBluff[facility]08-03-2023 History of Present illness Narrative* Piero Rubin MD - 06/18/2023 12:38 PM EDT Chief Complaint Patient presents with: Pain HPI Anastacio Patel is a 83 year old male who presents here today for Hospital Discharge Follow up.. Patient was admitted to [facility] 04/24/2023 after a fall and diagnosed with sacral Fx, debility, rhabdomyolysis due to the fall and suspected bone mets to the cervical spine. A MRI of the cervical spine didnot show any lesions in the C7 vertebral [...] the past month and had this prior toleaving the hospital. They tried compression socks with little to know benefit. He is sitting more and laying more. He has been getting therapy at [facility] but because of the edema and pain [...] sitting. Note aware of having any ankle x- rays. Denies any pain in the ankles before [...] which included preparing to see the patient, [id number] patient care, completing clinical documentation, performing a medically appropriate examination, counseling and educating the patient/family/caregiver and ordering medications, tests, or procedures. Piero Rubin MD documented in this encounterBluffton [facility]07-28-2023 Miscellaneous Notes* Telephone Encounter - Ines Chatterjee PA-C - 06/12/2023 10:05 AM EDT Noted * Telephone Encounter - Cherrie Qureshi RN - 06/12/2023 9:57 AM EDT Santana, a speech therapist with [facility] calling, to update PCP that she completed pt's cognitive evaluation yesterday and no further ST services are indicated at this time. Thank you. Cherire Qureshi RN documented in this encounterBluffton Hospital07-26-2023 Miscellaneous Notes* Telephone Encounter - Piero Rubin MD - 06/10/2023 1:08 PM EDT Noted. * Telephone Encounter - Angelica Morillo RN - 06/10/2023 12:20 PM EDT Nissa OT from [facility] calling to give update on pt. They will be seeing pt 1x per week for 1 week, then 2x per week for 2 weeks then 1x per week for 1 week. No return call needed to Nissa unless concerns or changes. documented in this encounterBluffton Hospital06-30-2023 History of Present illness Narrative* Idania Mcdaniels MA - 05/15/2023 1:42 PM EDT Scan on 05/14/2023 7:50 AM by External Provider, PAVictorino: Discharge Summary Idania Mcdaniels MA documented in this encounterBluffton Hospital06-29-2023 Discharge summary Author Marcelo Edge [facility] May 14, 2023 7:44am Note Date/Time May 12, 2023 9:45 pm [facility] Medical Records Department [address] [place] [id number] Discharge Summary 05/12/232 MR#: [id number] Acct: [id number] Name: ANASTACIO PATEL Rep #:[id number] : 1940 83 From: Marcelo Edge MD PCP: Dr. Piero Rubin MD Status:ADM IN Location: [place] [address] Providers Date of Admission: 04/24/23 Primary Care Physician: Dr. Piero Rubin MD Reason For Visit: RHABDO,BILATERAL SACRAL FRACTURE Diagnosis Discharge Diagnosis (1) Debility: Status: Inactive Code(s): R53.81 - Other malaise (2) Frequent falls: Status: Inactive Code(s): R29.6 - Repeated falls (3) Rhabdomyolysis: Status: Resolved Code(s): M62.82 - Rhabdomyolysis (4) Lung nodule seen on imaging study: Status: Inactive Code(s): R91.1 - Solitary pulmonary nodule (5) Sacral fracture, closed: Status: Inactive Code(s): S32.10XA - Unspecified fracture of sacrum, initial encounter for closed fracture (6) Thrombocytopenia: Status: Acute Code(s): D69.6 - Thrombocytopenia, unspecified (7) Hypertension: Status: Chronic Code(s): I10 - Essential (primary) hypertension (8) 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 * Debility - PT/OT. * Cognition - ST. * Pain - Tylenol 1000mg q8, Tramadol 50mg q6h prn pain (1-5), Oxycodone 10mg q4h prn pain (6-10). * Bowel - senna/colace 2 tablets bid, Dulcolax 10mg pr x 1 prn, MOM 30ml po x 1 prn. * Adult immunization - Administer pneumonia vaccine, covid19 vaccine, flu vaccine as appropriate. * DVT prophylaxis - Hold, monitor. * Hypertension - Lisinopril 10mg daily * Neuropathic pain - Gabapentin 200mg daily. * Muscle spasm - Baclofen 5mg tid prn. * Rule out cervical spine metastasis - PSA, CEA pending, order nuclear medicine bone scan. * Thrush - Nystatin swish and swallow x 10 days. Medications at Discharge Home Medications acetaminophen 500 mg tablet 1,000 mg PO Q8 #0 tabs 05/12/23 baclofen 10 mg tablet 5 mg PO TID PRN Muscle Spasm 30 days #90 tabs 05/12/23 gabapentin 300 mg capsule 300 mg PO TID 30 days #90 caps 05/12/23 losartan 100 mg tablet 100 mg PO DAILY 30 days #30 tabs 05/12/23 Hospital Course Operations None Procedures None Summary of Care Provided Minutes Spent on Discharge: 35 Hospital Course: 83 year old male with below past medical history hospitalized for fall, sacral fracture, complicated by rhabdomyolysis, possible cervical spine mets, admitted to TCU with debility, here for rehabilitation, strengthening, prior to dischargehome alone. 05/12/2023 Resident had dysuria, Urinalysis positive nitrite, Bactrim DS started,urine culture pending. Discharge to [facility] versus [facility] 05/15/2023, non- skilled, pending appeal. Physical Exam Const alert General Appearance: cooperative HEENT normocephalic Eyes PERRL and EOMs intact bilaterally Neck supple, no JVD and no carotid bruits Resp normal respiratory effort, normal air movement and clear to auscultation bilaterally Cardio regular rate and regular rhythm GI normal to inspection, nondistended, normoactive bowel sounds, non-tender and non-distended Extremity normal capillary refill General Extremity: Negative for edema Skin no rashes or lesions noted General Skin Exam: no breakdown Psych affect normal Appearance: appropriate Medical Records Data Medical Nutrition Assessment Dietitian: Malnutrition Criteria Met Start: 04/29/23 12:53 Freq: Status: Active Protocol: Document 05/06/23 15:12 [facility] (Rec: 05/06/23 15:12 [facility] [id number]) Nutrition Malnutrition Evidence of Malnutrition Exists Yes Malnutrition (moderate): Acute Illness/Injury Evidenced By Weight Loss (Severe),Physical Changes (Moderate) Intake Problem Inadequate Oral Intake Status Inactive Problem Clinical Problem Chronic Disease or Condition Related Malnutrition Etiology related to illness and inadequate energy intake Signs/Symptoms as evidenced by BMI <18, unintended wt loss of 9.6% since last review; appears to have fat/muscle loss throughout body Status Active Problem Recommendation Dietitian Recommendations/Changes Will continue regular diet as ordered Will continue ONS per res request - change ensure clear to magic cup w/ lunch and 8 oz ensure plus high protein ( butter pecan) w/ dinner. Fortified foods as able Weight / BMI Weight Weight: 47.656 kg Body Mass Index (BMI) 15.9 ABG / Lab / Microbiology Data Result Diagrams: 05/09/23 08:04 05/09/23 08:04 Laboratory: Laboratory Results - last 24 hr 05/12/23 01:15: Urine Color Di, Urine Clarity Clear, Urine pH 6.0, Ur Specific [place] 1.020, Urine Protein Negative, Urine Glucose (UA) Normal, Urine Ketones Negative, Urine Occult Blood Negative, Urine Nitrite Positive H, Urine Bilirubin 3 H, Urine Urobilinogen 4 H, Ur Leukocyte Esterase 25 H, Urine RBC 0 SEEN, Urine WBC 0-5 SEEN, Ur Squamous Epith Cells 0 SEEN, Urine Bacteria RARE, Urine Mucus 0 SEEN Microbiology: Microbiology 05/08/23 08:45 Urine, Catheterized Urine Culture - Final Culture exhibits no growth. 04/28/23 06:40 Nasal Secretion SARS-CoV-2 Antigen (Rapid) - Final 04/27/23 06:30 Nasal Secretion SARS-CoV-2 Antigen (Rapid) - Final 04/25/23 06:50 Nasal Secretion SARS-CoV-2 Antigen (Rapid) - Final D/C Instructions Discharge Diet: No restrictions Discharge Activity: Return to Normal Activity, May Shower and Use Walker Weight Bearing Status: Weight bearing as tolerated Call your doctor if you observe: Fever of 101 or Higher, Inability to urinate, Inability to have a bowel movement, Shortness of breath, Dizziness, Fainting spells, Swelling in the ankles, Chest pain and Uncontrolled pain Additional Instructions: Discharge to [facility] versus [facility] 05/15/2023, non- skilled, pending appeal. Meaningful Use Info Meaningful Use Diagnoses (Choose all that apply): None applicable Discharge Plan Admission Admit Date/Time: 04/24/23 14:17 Primary Reason for Your Visit: Debility. Attending Provider: Marcelo Edge Chi Primary Care Provider: Piero Rubin Instructions Additional Instructions / Restrictions: Discharge to [facility] versus [facility] 05/15/2023, non- skilled, pending appeal. Discharge Orders/Prescriptions Prescriptions: New acetaminophen 500 mg Tablet 1,000 mg PO Q8 Qty: 0 0RF baclofen 10 mg Tablet 5 mg PO TID PRN (Reason: Muscle Spasm) 30 Days Qty: 90 0RF gabapentin 300 mg Capsule 300 mg PO TID 30 Days Qty: 90 0RF losartan 100 mg Tablet 100 mg PO DAILY 30 Days Qty: 30 0RF Discontinued lisinopril 10 MG tablet 10 mg PO DAILY Label Comments: TAKE ONE TABLET BY MOUTH DAILY gabapentin 100 mg capsule 200 mg PO DAILY Label Comments: TAKE 2 CAPSULES BY MOUTH DAILY FOR NERVE PAIN oxycodone 10 mg tablet 10 mg PO Q6H PRN (Reason: pain) 5 Days Qty: 20 0RF Referrals / Follow Up: Piero Rubin MD [Primary Care Provider] - Disposition Disposition (needs filled in before D/C Order can be placed): Assisted Living 05/12/232147 <Electronically signed by Marcelo Edge MD> Cosigner Signature (if applicable): CC: Dr. Piero Rubin MD; Dr. Marcelo Edge MD~ Signed ADDENDUM by Dr. Marcelo Edge MD on 05/14/23 at 0744 Addendum 05/12/2023 Urine culture grew coagulase negative staph, below infection level, Bactrim stopped. 05/14/23 0744<Electronically signed by Marcelo Edge MD> Cosigner Signature (if applicable): cc: Dr. Piero Rubin MD; Dr. Marcelo Edge MD ~* Signed [facility] Work Phone: 1(553) 426-997806-27-2023 Discharge summary Author Marcelo Edge [facility] May 12, 2023 9:49pm Note Date/Time May 12, 2023 9:49 pm [facility] Medical Records Department [address] [place] [address] Transfer to [facility] MR#: [id number] Acct: [id number] Name: ANASTACIO PATEL Rep #:[id number] : 1940 83 From: Marcelo Edge MD PCP: Dr. Piero Rubin MD Status:ADM IN Certification of patient admission REQUIRED AT TIME OF ADMISSION. I CERTIFY THAT POST-HOSPITAL ECF SERVICES ARE REQUIRED TO BE GIVEN ON AN IN-PATIENT BASIS BECAUSE OF THE ABOVE NAMED PATIENT'S NEED FOR JAIL CARE ON A CONTINUING BASIS FOR THE CONDITION(S) FOR WHICH HE/SHE WAS RECEIVING IN-PATIENT HOSPITAL SERVICES PRIOR TO HIS/HER TRANSFER TO THE [facility]. 05/12/232148<Electronically signed by Marcelo Edge MD> Diet Diet Order/Speech Therapy: 04/24/23 14:37 Diet: Regular - General Food consistency:: Regular Liquid Consistency:: Regular/Thin Type of Dietary Supplement:: Is pt able to select menu?: Yes Diet Comments: NO milk to drink; MC w/ L, 8 oz butter pecan EPHP w/ D; fortified foods prn Routine Orders/Code Status Code Status: DNRCC-A (No intubation.) Wound(s) LT UPPER CALF: Wound Type: Abrasion YOCASTA HANDS/ARMS: Wound Type: Abrasion RT POST SHOULDER: Wound Type: Abrasion MID LOWER BACK: Wound Type: Abrasion Therapies Weight Bearing: Weight bearing as tolerated Problem/Diagnosis (1) Debility: Status: Inactive Code(s): R53.81 - Other malaise (2) Frequent falls: Status: Inactive Code(s): R29.6 - Repeated falls (3) Rhabdomyolysis: Status: Resolved Code(s): M62.82 - Rhabdomyolysis (4) Lung nodule seen on imaging study: Status: Inactive Code(s): R91.1 - Solitary pulmonary nodule (5) Sacral fracture, closed: Status: Inactive Code(s): S32.10XA - Unspecified fracture of sacrum, initial encounter for closed fracture (6) Thrombocytopenia: Status: Acute Code(s): D69.6 - Thrombocytopenia, unspecified (7) Hypertension: Status: Chronic Code(s): I10 - Essential (primary) hypertension (8) 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 * Debility - PT/OT. * Cognition - ST. * Pain - Tylenol 1000mg q8, Tramadol 50mg q6h prn pain (1-5), Oxycodone 10mg q4h prn pain (6-10). * Bowel - senna/colace 2 tablets bid, Dulcolax 10mg pr x 1 prn, MOM 30ml po x 1 prn. * Adult immunization - Administer pneumonia vaccine, covid19 vaccine, flu vaccine as appropriate. * DVT prophylaxis - Hold, monitor. * Hypertension - Lisinopril 10mg daily * Neuropathic pain - Gabapentin 200mg daily. * Muscle spasm - Baclofen 5mg tid prn. * Rule out cervical spine metastasis - PSA, CEA pending, order nuclear medicine bone scan. * Thrush - Nystatin swish and swallow x 10 days. Allergies/Procedures Done in Hospital Allergies No Known Allergies Allergy (Verified 04/18/23 12:27) Procedures: None Type of Care/Length of Stay Estimated LOS: Convalescent Care Less Than 30 days Type of Care Needed: Long Term/Assisted Living Rehab Potential: Fair Prognosis: Fair Additional Orders/Day of Discharge Day of Discharge: 05/15/23 Dietary and Speech Recommendations Dietitian Recommendations/Changes: Will continue regular diet as ordered Will continue ONS per res request - change ensure clear to magic cup w/ lunch and 8 oz ensure plus high protein (butter pecan) w/ dinner. Fortified foods as able Speech Linguistic Eval Summary: BCAT administered at this date w/ informal cognitive evaluation. Patient oriented to self (name, , age) independently, city/state and situation w/ extended time appreciated. Able to recall personal information re: address, children's names, etc. Orientation grossly WNL at this date, however nursing and family do report disorientation, increased confusion. Difficulty w/ comprehension tasks despite prompting by AIRCRAFT TECHNICIAN including counting backwards from 20-1, [place] backwards. Patient frequently stating that he does not understand the task at hand. Difficulty w/ immediate recall of #'s and 4 words, 0% ability to recall digits or words given <60s delay. Speech intelligibility / verbal expression WNL. Patient presents w/ most notable deficits in orientation,memory, comprehension and executive function. Spoke w/ nursing, Casey who reportspatient is receiving several pain medications. Likely pain medication is negatively impacting cognition. Discharge Plan Admission Admit Date/Time: 04/24/23 14:17 Primary Reason for Your Visit: Debility. Attending Provider: Marcelo Edge Chi Primary Care Provider: Piero Rubin Instructions Additional Instructions / Restrictions: Discharge to [facility] versus [facility] 05/15/2023, non- skilled, pending appeal. Discharge Orders/Prescriptions Prescriptions: New acetaminophen 500 mg Tablet 1,000 mg PO Q8 Qty: 0 0RF baclofen 10 mg Tablet 5 mg PO TID PRN (Reason: Muscle Spasm) 30 Days Qty: 90 0RF gabapentin 300 mg Capsule 300 mg PO TID 30 Days Qty: 90 0RF losartan 100 mg Tablet 100 mg PO DAILY 30 Days Qty: 30 0RF Discontinued lisinopril 10 MG tablet 10 mg PO DAILY Label Comments: TAKE ONE TABLET BY MOUTH DAILY gabapentin 100 mg capsule 200 mg PO DAILY Label Comments: TAKE 2 CAPSULES BY MOUTH DAILY FOR NERVE PAIN oxycodone 10 mg tablet 10 mg PO Q6H PRN (Reason: pain) 5 Days Qty: 20 0RF Referrals / Follow Up: Piero Rubin MD [Primary Care Provider] - Disposition Disposition (needs filled in before D/C Order can be placed): Assisted Living 05/12/23 3325 <Electronically signed by Marcelo Edge MD> Cosigner Signature (if applicable): CC: Dr. Piero Rubin MD ~ [facility] Work Phone: [phone]) 788-235006-14-2023 History and physical note Author Marcelo Edge [facility] April 29, 2023 8:49pm Note Date/Time April 24, 2023 3:07p m [facility] Medical Records Department [address] [place] [address] History & Physical Exam 04/24/23 1452 MR#: [id number] Acct: [id number] Name: ANASTACIO PATEL Rep #:[id number] : 1940 83 From: Marcelo Edge MD PCP: Dr. Piero Rubin MD Status:ADM IN Location: [place] [address] HPI - General General Date of Admission: 04/24/23 Date of Service: 04/24/23 Chief Complaint: Here for rehabilitation. HPI Narrative 04/18/2023 ANASTACIO PATEL, is a 83 Male who presents to [facility] Emergency Department with fall. 04/18/2023 EKG sinus bradycardia, left axis deviation. Recurrent falls, fell 2 days ago, going up stairs. Injured left shoulder, fell out of bed, hurt back. Fell in bathroom, unable to get up, back pain. Left buttock wound consistent with rhabdomyolysis. Morphine IV, IV fluids given. WBC 13.5, CPK 2434. Chest X-ray left upper lobe infiltrate versus mass, right middle lobe infiltrate, COPD changes. CT showed C7 lytic lesions. CT showed sacral fracture. 04/18/[address] chest for bilateral pulmonary masses. C7 3 lytic lesions. PT/OT debility. IV fluids for rhabdomyolysis. Urinalysis negative, Hold antibiotics. 04/19/2023 PT/OT SNF. IV fluids, CPK, BMP for acute rhabdomyolysis. CT chest left upper lobe 8mm nodule, right lower lobe 1.5cm airspace disease. CT negative for lytic lesions, consult Dr. Sy. Consider stopping Lovenox for thrombocytopenia. 04/20/2023 Feels weak. Rhabdomyolysis improving. Dr. Sy awaiting records form previous workup left upper lobe nodule. MRI cervical spine recommended nuclear medicine bone scan. 04/21/2023 Weak, bilateral lower extremity pain. 04/22/2023 Low back pain, weak. Consult pain management for low back pain. Thrombocytopenia resolved, Platelet 154. 04/23/2023 Low back pain secondary to sacral fracture. Left upper lobe nodule smaller, NOT cancer. Right lower lobe lesion could be contusion, recommend Dr. Oshea followup CTchest in 3 to 6 months. MRI cervical spine showed ? bone malignancy or mets, PSA, CEA ordered. CT abdomen/pelvis negative cancer metastasis. 04/24/2023 Dr. Saucedo performed lumbar epidural steroid injection for low back pain. 04/24/2023 Admit to TCU with debility, here for rehabilitation, strengthening, prior to discharge home alone. [facility] Medical History (Updated 04/24/23 @ 15:[address] Marcelo Edge MD) Frequent falls HTN (hypertension) Hypertension Lung nodule seen on imaging study Pulmonary infiltrates on CXR Rhabdomyolysis Thrombocytopenia Home Medications lisinopril 10 mg tablet 10 mg PO DAILY bp 04/29/18 [History Last Taken Unknown] gabapentin 100 mg capsule 200 mg PO DAILY nerve pain 04/18/23 [History Last Taken Unknown] oxycodone 10 mg tablet 10 mg PO Q6H PRN pain 5 days #20 tabs 04/24/23 [Rx Last Taken Unknown] Allergy/AdvReac Type Severity Reaction Status Date / Time No Known Allergies Allergy Verified 04/18/23 12:27 Family History (Updated 04/18/23 @ 15:[address] Nicholas Marroquin MD) Other Dementia Surgical History (Updated 04/18/23 @ 15:[address] Nicholas Marroquin MD) History of appendectomy History of splenectomy Social History (Updated 04/24/23 @ 15:[address] Marcelo Edge MD) household members: none Smoking Status: Former smoker alcohol intake: never substance use type: does not use ROS Constitutional Constitutional: Denies chills, fever(s) or weight gain ENT HEENT: Denies headache(s), nasal congestion or nasal discharge Cardiovascular Cardiovascular: Denies chest pain or palpitations Respiratory/Chest Respiratory/Chest: Denies cough, excessive phlegm production or shortness of breath with exertion Gastrointestinal Gastrointestinal: Denies abdominal pain, nausea or vomiting Genitourinary Genitourinary: Denies dysuria Musculoskeletal Musculoskeletal: Denies joint pain or joint swelling Integumentary Integumentary: Denies rash or wounds Neurologic Neurologic: Denies focal weakness, numbness or tingling Psychiatric Psychiatric: Denies anxiety, auditory hallucinations, depression, homicidal ideation or suicidal ideation Physical Exam Const alert General Appearance: cooperative HEENT normocephalic Eyes PERRL and EOMs intact bilaterally Neck supple, no JVD and no carotid bruits Resp normal respiratory effort, normal air movement and clear to auscultation bilaterally Cardio regular rate and regular rhythm GI normal to inspection, nondistended, normoactive bowel sounds, non-tender and non-distended Extremity normal capillary refill General Extremity: Negative for edema Skin no rashes or lesions noted General Skin Exam: no breakdown Psych affect normal Appearance: appropriate Assessment & Plan Assessment/Plan (1) Debility: (2) Frequent falls: (3) Rhabdomyolysis: (4) Lung nodule seen on imaging study: (5) Sacral fracture, closed: (6) Thrombocytopenia: (7) Hypertension: (8) 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 * Debility - PT/OT. * Cognition - ST. * Pain - Tylenol 1000mg q8, Tramadol 50mg q6h prn pain (1-5), Oxycodone 10mg q4h prn pain (6-10). * Bowel - senna/colace 2 tablets bid, Dulcolax 10mg pr x 1 prn, MOM 30ml po x 1 prn. * Adult immunization - Administer pneumonia vaccine, covid19 vaccine, flu vaccine as appropriate. * DVT prophylaxis - Hold, monitor. * Hypertension - Lisinopril 10mg daily * Neuropathic pain - Gabapentin 200mg daily. * Muscle spasm - Baclofen 5mg tid prn. * Rule out cervical spine metastasis - PSA, CEA pending, order nuclear medicine bone scan. * Thrush - Nystatin swish and swallow x 10 days. 04/24/23 1520 <Electronically signed by Marcelo Edge MD> Cosigner Signature (if applicable): CC: Dr. Piero Rubin MD; Dr. Marcelo Edge MD~ Signed ADDENDUM by Dr. Marcelo Edge MD on 04/29/23 at 2048 Addendum I spoke with resident son Alcon on the phone, resident daughter in law was also on the call. We discussed resident's pain level, Alcon was concerned the oxycodone was too strong and caused confusion, sedation. I let Alcon know I decreased the oxycodone dose, and added Medrol Dose pack steroid taper to help with pain. We also discussed the increase in gabapentin dose and frequency to help with nerve pain of the legs. Alcon asked about the nuclear bone scan, I let him know the concern was MRI findings of the neck, and although bone scan had many findings consistent with degenerative disease, bone scan did not light up in the neck, which is good news, decreases likelihood of metastatic cancer or multiple myeloma. Alcon also asked about CT abdomen/pelvis results, I let him know there were manyfindings on the CT but none were concerning for cancer or life threatening disease. Alcon asked about resident's prognosis, I let him know with pain better controlled, I think resident will continue to progress in therapy, and he has a good chance in returning home to live alone independently. Alcon was appreciative of my call. 04/29/232048<Electronically signed by Marcelo Edge MD> Cosigner Signature (if applicable): cc: Dr. Piero Rubin MD; Dr. Marcelo Edge MD ~* Signed [facility] Work Phone: [phone]) 367-795406-14-2023 History of Present illness Narrative* Idania Mcdaniels MA - 04/29/2023 3:13 PM EDT Scan on 04/23/2023 3:26 PM by External [...] on 04/24/2023 5:19 PM by External Provider, HEVER: Discharge Summary Scan on 04/27/2023 3:20 PM by External Provider, HEVER: Bone Density Idania Mcdaniels MA [facility] Progress note Author Marcelo [facility] April 27, 2023 12:10pm Note Date/Time April 27, 2023 10:1 0[facility] Medical Records Department [address] [place] [address] Progress Note - Pharmacy 04/27/23 0952 MR#: [id number] Acct: [id number] Name: ANASTACIO PATEL Rep #:[id number] : 1940 83 From: Tamiko Thomas PCP: Dr. Piero Rubin MD Status:ADM IN Location: TCU [place] [address] TCU RX Drug Regimen Review Subjective: TCU Admission. 83 YOM presented to the ER with a fall on 04/18 . Hospitalized for fall, sacral fracture, complicated by rhabdomyolysis, possible cervical spine mets. Admitted to TCU on 04/24 with debility for rehab and strengthening. Objective: Allergies No Known Allergies Allergy (Verified 04/18/23 12:27) Current Medications Generic Name Dose Route Start Last Admin Trade Name Freq PRN Reason Stop Dose Admin Acetaminophen 1,000 mg 04/24/23 15:30 04/27/23 06:04 Acetaminophen 500 Mg Tablet PO 1,000 mg Q8 IZZY Administration Baclofen 5 mg 04/24/23 15:21 04/26/23 20:53 Baclofen 10 Mg Tablet PO 5 mg TID PRN Administration MUSCLE SPASM Bisacodyl 10 mg 04/24/23 15:21 Bisacodyl 10 Mg Suppository RC X1 PRN Constipation Calamine/Phenol 1 applic 04/24/23 22:00 04/27/23 06:03 Menthol/Lanolin/Calamine/Znox 113 Gm Tube TOPICAL 1 applic TID IZZY Administration Protocol Gabapentin 200 mg 04/26/23 14:00 04/27/23 06:02 Gabapentin 100 Mg Capsule PO 200 mg TID IZZY Administration Hydrocortisone 1 applic 04/24/23 18:27 Hydrocortisone 2.5% Crm TOPICAL BID PRN PRN RASH/TOPICAL IRRITATION Protocol Losartan Potassium 100 mg 04/26/23 10:00 04/27/23 06:03 Losartan Potassium 100 Mg Tablet PO 100 mg DAILY IZZY Administration Magnesium Hydroxide 30 ml 04/24/23 15:21 Magnesium Hydroxide 30 Ml Udc PO X1 PRN Constipation Nystatin 500,000 unit 04/24/23 17:00 04/27/23 06:03 Nystatin 500,000 Unit/5 Ml Udc PO 05/04/23 17:01 500,000 unit 4X/DAY IZZY Administration Oxycodone HCl 10 mg 04/24/23 15:21 04/25/23 14:46 Oxycodone 5 Mg Tablet PO 10 mg Q4H PRN PRN Administration Pain Score 6-10 Senna/Docusate Sodium 2 tablet 04/24/23 18:00 04/27/23 06:04 Senna/Docusate Sodium 1 Tablet PO 2 tablet BID IZZY Administration Tramadol HCl 50 mg 04/24/23 15:21 04/27/23 06:02 Tramadol 50 Mg Tablet PO 50 mg Q6H PRN PRN Administration Pain Score 1-5 Tuberculin PPD 0.1 ml 05/02/23 10:00 Tuberculin,Purif.Prot.Deriv. 50 Tu/Ml Vial ID 05/02/23 10:01 X1 ONE Problem List (Last Updated 04/24/23 @ 15:[address] 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 (Acute) Hypertension (Chronic) Thrombocytopenia (Acute) Lung nodule seen on imaging study (Acute) Rhabdomyolysis (Acute) Frequent falls (Acute) Sacral fracture, closed (Acute) Debility (Acute) Vital Signs Temp Pulse Resp BP Pulse Ox O2 Del Method 98.7 F 72 18 147/73 H 93 Room Air 04/26/23 14:12 04/26/23 21:00 04/26/23 21:00 04/26/23 14:12 04/26/23 21:00 04/26/23 21:00 Oxygen Delivery Method Room Air Weight: 56.387 kg Body Mass Index (BMI) 18.8 Sodium 140 mmol/L (136-145) 04/27/23 05:24 Potassium 4.0 mmol/L (3.5-5.1) 04/27/23 05:24 Chloride 109 mmol/L (98-107) H 04/27/23 05:24 Carbon Dioxide 26.0 mmol/L (21.0-32.0) 04/27/23 05:24 Anion Gap 5 (5-15) 04/27/23 05:24 BUN 29 mg/dL (7-18) H 04/27/23 05:24 Creatinine 0.75 mg/dL (0.70-1.30) 04/27/23 05:24 Est GFR (MDRD) Af Amer 127 mL/min (>60) 04/27/23 05:24 Est GFR (MDRD) Non-Af 105 mL/min (>60) 04/27/23 05:24 BUN/Creatinine Ratio 38.6 RATIO (10-20) H 04/27/23 05:24 Glucose 111 mg/dL (74-106) H 04/27/23 05:24 Assessment/Plan: 1. Pain: acetaminophen 1000mg PO Q8H, Tramadol 50mg PO Q6H PRN pain (1-5), Oxycodone 10mg PO Q4H PRN pain (6-10). Monitor: pain levels, constipation, drowsiness, respiratory depression, PRN medication use. To date, patient has taken 2 doses of tramadol (pain scale 2-5/10 for knee and back pain) and 2 dosesof oxycodone (pain scale 7/10 for back pain). 2. Bowel: senna/docusate 2 tablets PO BID, Dulcolax 10mg RC x 1 PRN constipation, MOM 30ml PO x 1 PRN constipation. Monitor: increased or decreased constipation/diarrhea and PRN usage. To date, patient has had one bowel movementand has not used any of his PRN medications. 3. Hypertension: losartan 100mg PO daily. Monitor: BP (145-160/73-89), HR (68- 81), renal function (CrCl 43.86 on 04/26). 4. Muscle spasm: baclofen 5mg PO TID PRN muscle spasm. Monitor: oversedation, frequency of muscle spasms, PRN medication use. To date, patient has received one dose of Baclofen. 5. Thrush: nystatin 500,000units PO 4x/day thru 6/19/23. Monitor: s/s of thrush,nausea, vomiting. 6. Skin integrity/rash: Calmoseptine 1 topical application TID, Hydrocortisone 2.5% topical application BID PRN rash/topical irritation. To date, patient has not used hydrocortisone cream. Assessment/Plan for indications treated with psychotropic medications: 1. Neuropathic pain: gabapentin 200mg PO daily. GDR not recommended as its use for neuropathic pain. Monitor: fatigue, renal function (BEERs medication, dose appropriate for current renal function), fall risk (BEERS Medication), confusion. Medical chart and medication regimen reviewed. The following medication irregularities or issues were identified: *1. [employer] depression with gabapentin, oxycodone, and Baclofen. Please monitor oversedation with the combination of these medications. Thanks. Date of Note:: 04/27/23 04/27/23 1041 <Electronically signed by Tamiko Thomas > Tamiko Thomas Cosigner Signature (if applicable): 04/27/23 1210 <Electronically signed by Marcelo Edge MD> CC: ~ Signed [facility] Work Phone: [phone]) 668-451406-07-2023 History of Present illness Narrative* Idania Mcdaniels MA - 04/22/2023 6:01 PM EDT Scan on 04/18/2023 2:14 PM by External [...] 12:50 PM by External Provider, PA-C: MRI Idania Mcdaniels MA documented [facility] History of Present illness Narrative* Ralph Beverly LPN - 04/21/2023 7:20 AM EDT Scan on 04/18/2023 4:49 PM by External Provider, HEVER: CT Scan documented in [facility]-2023 History and physical note Author Dr. Marroquin [facility] April 18, 2023 4:15pm Note Date/Time April 18, 2023 3:57p m [facility] Medical Records Department [address] [facility] [place] [address] H&P Exam - Hospitalist 04/18/23 1455 MR#: [id number] Acct: [id number] Name: ANASTACIO PATEL Rep #:[id number] : 1940 83 From: Nicholas marie MD PCP: Dr. Piero Rubin MD Status:ADM IN Location: [facility] [id number] HPI - General General Date of Admission: 04/18/23 HPI Narrative ANASTACIO PATEL, is a 83 M who presents to the hospital after multiple falls over the last 3 months. He denies any shortness of breath, fevers, chills, sputum production, weight loss. He states that he monitors his weight and does workout fairly regularly. He fell 2 days ago and injured his left shoulder and went to [facility] urgent care for an x-ray which was unremarkable. He fell again this morning in the bathroom but he does not recall how he fell and he was unsure whether or not he hit his head or if he had any loss of consciousness. He was unable to get himself up from the floor so he laid on theground until his children came and found him. He was answering the phone as he lives alone. Is unclear as to how long he had been on the floor but he does have an elevated creatinine kinase indicative of rhabdomyolysis. He does have sacral fracture is well as 3 lytic lesions in his C7 vertebrae. Chest x-ray demonstrates bilateral pulmonary masses that could be related to lung cancer that he was unaware of versus infection, he does have a leukocytosis which couldalso be related to his rhabdo. He denies any sputum production or increased shortness of breath. CT of the chest with contrast is pending in the ER [facility] Medical History (Updated 04/18/23 @ 15:[address] Nicholas Marroquin MD) HTN (hypertension) Home Medications lisinopril 10 mg tablet 10 mg PO DAILY 04/29/18 [History Last Taken Unknown] Allergy/AdvReac Type Severity Reaction Status Date / Time No Known Allergies Allergy Verified 04/18/23 12:27 Family History (Updated 04/18/23 @ 15:[address] Nicholas Marroquin MD) Other Dementia Surgical History (Updated 04/18/23 @ 15:[address] Nicholas Marroquin MD) History of appendectomy History of splenectomy Social History Smoking Status: Former smoker ROS Constitutional Constitutional: Reports weakness; Denies chills, fatigue, fever(s) or malaise Eyes Eyes: Denies blurry vision ENT HEENT: Denies headache(s) or nasal discharge Cardiovascular Cardiovascular: Denies chest pain, dyspnea on exertion or syncope Respiratory/Chest Respiratory/Chest: Denies cough, shortness of breath at rest or shortness of breath with exertion Gastrointestinal Gastrointestinal: Denies constipation, diarrhea, nausea or vomiting Genitourinary Genitourinary: Denies dysuria Musculoskeletal Musculoskeletal: Reports back pain Neurologic Neurologic: Denies focal weakness, numbness or tremor(s) Psychiatric Psychiatric: Denies anxiety or depression Vital Signs Vital Signs Vital Signs: 04/18/23 12:28 04/18/23 12:32 Temperature 98.2 F Temperature Source Temporal Pulse Rate 58 L Respiratory Rate 16 Respiratory Effort Normal Non-Labored Respiratory Depth Normal Respiratory Pattern Normal Blood Pressure 158/75 H Blood Pressure Mean 102 Pulse Ox 95 Oxygen Delivery Method Room Air Room Air Weight Weight: 118 lb 6.212 oz Body Mass Index (BMI) 17.4 Physical Exam Narrative General: Alert, Oriented x3, Cooperative, No apparent distress, thin/frail HEENT: Atraumatic, PERRLA, EOMI, Normocephalic Oral: Dry mucosa Neck: Supple, No JVD Lungs: Diminished, Normal air movement, No rhonchi, No wheeze, No rales Cardiovascular: Regular rate, Regular Rhythm, Normal S1, Normal S2, No murmurs Abdomen: Soft, Non Tender, Non-Distended, No Hepato-splenomegaly Extremities: No edema, Capillary Refill Less than 3 Seconds Skin: Redness on his lumbar/sacral region Musculoskeletal: No Tenderness to Palpation of Joints or Extremities Neurological: Motor Exam 5/5 strength throughout, Sensory exam intact to light touch and pain Psych/Mental Status: Normal Affect, Appropriate Results Lab / Micro Data Result Diagrams: 04/18/23 13:20 04/18/23 13:20 Labs: Laboratory Results - last 24 hr 04/18/23 13:20: WBC 13.5 H, RBC 3.13 L, Hgb 10.6 L, Hct 31.1 L, MCV 99.4 H, MCH 33.9 H, MCHC 34.1, RDW Std Deviation 56.8 H, RDW Coeff of Apolonia 15.7 H, Plt Count 135 L, MPV 12.2 H, Immature Gran % (Auto) 0.300, Neut % (Auto) 84.0 H, Lymph % (Auto) 4.7 L, Morris % (Auto) 10.8 H, Eos % (Auto) 0.1, Baso % (Auto) 0.1, Absolute Neuts (auto) 11.3 H, Absolute Lymphs (auto) 0.63 L, Nucleated RBC % 0 04/18/23 13:20: Sodium 140, Potassium 4.3, Chloride 105, Carbon Dioxide 27.0, Anion Gap 8, BUN 20 H, Creatinine 0.93, Estim Creat Clear Calc 44.91, Est GFR (MDRD) Af Amer 100, Est GFR (MDRD) Non-Af 82, BUN/Creatinine Ratio 21.5 H, Glucose 99, Calcium 9.1, Total Bilirubin 2.00 H, AST 86 H, ALT 50, Alkaline Phosphatase 46, Total Creatine Kinase 2434 H, Total Protein 7.0, Albumin 3.6, Globulin 3.4, Albumin/Globulin Ratio 1.1 04/18/23 14:30: Urine Color Yellow, Urine Clarity Clear, Urine pH 5.0, Ur Specific [place] 1.020, Urine Protein 15 H, Urine Glucose (UA) Normal, Urine Ketones 15 H, Urine Occult Blood 150 H, Urine Nitrite Negative, Urine Bilirubin Negative, Urine Urobilinogen Normal, Ur Leukocyte Esterase Negative, Urine RBC 0-5 SEEN, Urine WBC 0 SEEN, Ur Squamous Epith Cells 0-5 SEEN, Urine Bacteria 0 SEEN, Urine Mucus 0 SEEN Radiology Impression Brain CT 04/18/23 13:02 IMPRESSION: Moderate cortical and central atrophy, moderate cerebellar atrophy. Severe chronic microvascular ischemic change. Moderate posterior right ethmoidal mucosal thickening. Electronically Signed: Mckay Lee MD, JD at 14:10 EDT , Cervical Spine CT 04/18/23 13:02 IMPRESSION: No evidence of acute cervical spinal fracture or spondylolisthesis. There are 3 lytic lesions within the C7 vertebral body. Rule out neoplastic disease. Degenerative changes as above. Electronically Signed: Mckay Lee MD, JD at 14:16 EDT , Chest X-Ray 04/18/23 13:02 IMPRESSION: Left upper lobe infiltrate versus mass. Medial right middle lobe infiltrate. COPD. Electronically Signed: Mckay Lee MD, JD at 14:22 EDT , Lumbar Spine CT 04/18/23 13:02 IMPRESSION: Bilateral fracture of the sacrum in the region of the sacral ala. Focal acute angulation at the S2 segment. Additional findings above. Electronically Signed: Mckay Lee MD, JD at 14:21 EDT , Pelvis X-Ray 04/18/23 13:02 IMPRESSION: Bilateral sacral fracture. Electronically Signed: Mckay Lee MD, JD at 14:23 EDT , Thoracic Spine CT 04/18/23 13:02 IMPRESSION: Scoliosis and diffuse degenerative disc disease. No evidence of acute thoracic spinal fracture or spondylolisthesis. Electronically Signed: Mckay Lee MD, CRISTOBAL at 14:25 EDT , Assessment & Plan Assessment/Plan (1) Rhabdomyolysis: (2) Sacral fracture, closed: (3) Malignancy: PLAN: Plan 1. Weakness and debility with multiple falls with a sacral fracture and rhabdomyolysis possibly due to to pulmonary malignancy ? He is a former smoker, though not significant in volume and he quit in the 90s ? He does have bilateral pulmonary masses that will be further characterized by CT of the chest with contrast ? He does have 3 lytic lesions in C7 which could be attributed to a pulmonary malignancy ? We will get PT and OT to evaluate for possible placement ? We will continue with IV fluids for his rhabdomyolysis and recheck CK ? UA is unremarkable, and he is afebrile therefore we will hold off on antibiotics at this time 2. Hypertension ? Blood pressures are stable at the moment once his medications are verified canbe restarted DVT: Lovenox I had a 20-minute discussion on advance care planning including CODE STATUS explained the differences between full code and DNR. We also discussed possibleoptions depending on the results of the CT of the chest if he were to have a stage IV pulmonary malignancy 75 minutes was spent on direct patient care as well as chart review and collaboration with colleagues Charges/Coding Visit Charges Inpatient E&M: 35360 Init Hosp L3 Procedures Hospitalists Procedures: 52874 Advncd Care Plan 30 Min 04/18/23 2605 <Electronically signed by Nicholas Marroquin MD> Cosigner Signature (if applicable): CC: Dr. Piero Rubin MD; Dr. Nicholas Marroquin MD~ Signed [facility] Work Phone: 1(907) 872-436406-03-[address] Kilgore [facility] April 18, 2023 4:39pm Note Date/Time April 18, 2023 1:09p [facility] Medical Records Department [address] [place] [address] Emergency Department Summary 04/18/23 MR#: [id number] Acct: [id number] Name: ANASTACIO PATEL Rep #:[id number] : 1940 83 From: Rosalinda Roberts PCP: Dr. Piero Rubin MD Status:ADM IN Location: [facility] [place]0 HPI HPI - Fall History of Present Illness Chief Complaint: Fall Informant: patient and family Narrative Narrative: Patient is an 83-year-old male with history of hypertension presenting with injures and recurrent falls. Patient fell 2 days ago going up the stairs as he was not using the handrail. He injured his left shoulder. The following day when he was trying to get out of bed he was struggling and fell and hurt his back. He went to [facility] urgent care and had an x-ray of his shoulder done. At some points this morning or last night patient fell in the bathroom. He does not recall exactly how he fell but thinks it was more mechanical fall. He is not sure if he hit his head. He was unable to get himself up and laid on the ground until his children came and checked on him as he was not answering his phone. Patient lives home alone. Patient is complaining of back pain currently. Denies any chest pain, difficulty breathing or shortness of breath. Denies associated numbness or tingling. [facility] Medical History (Updated 04/18/23 @ 16:[address] Rosalinda Kilgore DO) HTN (hypertension) Home Medications lisinopril 10 mg tablet 10 mg PO DAILY 04/29/18 [History Last Taken Unknown] Allergy/AdvReac Type Severity Reaction Status Date / Time No Known Allergies Allergy Verified 04/18/23 12:27 Family History (Updated 04/18/23 @ 15:[address] Nicholas Marroquin MD) Other Dementia Surgical History (Updated 04/18/23 @ 15:[address] Nicholas Marroquin MD) History of appendectomy History of splenectomy Social History Smoking Status: Former smoker ROS ROS ED Constitutional Constitutional ED: Denies chills or fever(s) Eyes Eyes: Denies change in vision ENT ENT ED: Denies sore throat Cardiovascular Cardiovascular: Denies chest pain Respiratory/Chest Respiratory/Chest: Denies cough or dyspnea Gastrointestinal Gastrointestinal: Denies abdominal pain, nausea or vomiting Musculoskeletal Musculoskeletal: Reports back pain and other Details: left shoulder pain Integumentary Denies Abrasions or rash Neurologic Neurologic: Reports weakness; Denies paresthesias Hematologic/Lymphatic Hematologic/Lymphatic: Denies easy bleeding EXAM Physical Exam Const Vital Signs: 04/18/23 12:28 04/18/23 12:32 04/18/23 15:02 Temperature 98.2 F 98.6 F Temperature Source Temporal Temporal Pulse Rate 58 L 60 Respiratory Rate 16 18 Respiratory Effort Normal Non-Labored Respiratory Depth Normal Respiratory Pattern Normal Blood Pressure 158/75 H 162/77 H Blood Pressure Mean 102 105 Pulse Ox 95 94 Oxygen Delivery Method Room Air Room Air Room Air 04/18/23 14:26 Temperature Temperature Source Pulse Rate Respiratory Rate 16 Respiratory Effort Respiratory Depth Respiratory Pattern Blood Pressure Blood Pressure Mean Pulse Ox Oxygen Delivery Method Constitutional Narrative: frail General Appearance ED: NAD HEENT Reports normocephalic atraumatic Eyes PERRL and EOMs intact bilaterally Neck Neck Narrative: Chronic appearing exaggerated cervical lordosis present General: Negative for tenderness Chest Wall inspection of chest normal and palpation of chest normal Resp normal respiratory effort Cardio regular rate, regular rhythm and no murmurs GI non-tender and non-distended Back/Spine no CVA tenderness Extremity Extremity Narrative: No obvious deformity of the extremities. No pain with range of motion of all 4 extremities diffusely. Negative logroll and range of motion of the hips bilaterally. Pelvis is stable. Patient has tenderness palpation of the lumbar spine most pronounced. He also some mild tenderness of the distal thoracic spine. No obvious step-off sign. Neuro Marisel Coma Scale: document GCS findings To Voice Obeys Commands Oriented 14 Sensorium / Orientation: alert Motor Exam: general weakness Psych Psych Narrative: Slightly slow to respond otherwise acting appropriately Skin Skin Narrative: Area of erythema over the right proximal buttock/right lower paraspinal region consistent with a pressure wound MDM MDM MDM Narrative Medical decision making narrative: Patient is an 83-year-old male that is generally healthy presenting for falls and inability to get up from the ground. Patient's had 2-3 falls over the past 2 days and spent at least a couple hours on the ground last night from this mostrecent fall. He is mostly complaining of lower back/buttocks pain. Patient on physical exam does have tenderness of his lumbar and sacral spine as well as a pressure wound on his left buttocks likely consistent with rhabdomyolysis. Patient is given 2 mg IV morphine as well as IV fluids for comfort. On repeat evaluation of family states he is more comfortable and is resting nicely howeverhe is slightly confused. Patient is found to have a mild leukocytosis of 13.5 which could be reactive from his fall and rhabdo. He has normal kidney functionwith GFR of 82 however he does have a significant elevation of his CPK at 2434. I suspect patient does have rhabdomyolysis associated with his fall. His chest x-ray shows left upper lobe infiltrate versus mass as well as repeat medial right middle lobe infiltrate and COPD changes. He has not complained of any cough, fever or other signs of an acute infection so I would not treat at this time but this is discussed with the hospitalist. In addition patient is found to have possible lytic lesions of the C7 vertebral body and CT of the lumbar spine bilateral fracture of the sacrum in the region of the sacral parish and focal acute angulation of the S2 segments, this is also seen on the pelvic x-ray. With these findings patient will be admitted to the medicine service. Patient and family agreeable with this plan of care. They are counseled the possibility of new metastatic cancer and this to be worked up further inpatient. Lab Data Attestation: I reviewed the patient's lab results. Labs: Laboratory Results - last 24 hr 04/18/23 04/18/23 04/18/23 13:20 13:20 14:30 WBC 13.5 H RBC 3.13 L Hgb 10.6 L Hct 31.1 L MCV 99.4 H MCH 33.9 H MCHC 34.1 RDW Std Deviation 56.8 H RDW Coeff of Apolonia 15.7 H Plt Count 135 L MPV 12.2 H Immature Gran % (Auto) 0.300 Neut % (Auto) 84.0 H Lymph % (Auto) 4.7 L Morris % (Auto) 10.8 H Eos % (Auto) 0.1 Baso % (Auto) 0.1 Absolute Neuts (auto) 11.3 H Absolute Lymphs (auto) 0.63 L Nucleated RBC % 0 Sodium 140 Potassium 4.3 Chloride 105 Carbon Dioxide 27.0 Anion Gap 8 BUN 20 H Creatinine 0.93 Estim Creat Clear Calc 44.91 Est GFR (MDRD) Af Amer 100 Est GFR (MDRD) Non-Af 82 BUN/Creatinine Ratio 21.5 H Glucose 99 Calcium 9.1 Total Bilirubin 2.00 H AST 86 H ALT 50 Alkaline Phosphatase 46 Total Creatine Kinase 2434 H Total Protein 7.0 Albumin 3.6 Globulin 3.4 Albumin/Globulin Ratio 1.1 Urine Color Yellow Urine Clarity Clear Urine pH 5.0 Ur Specific [place] 1.020 Urine Protein 15 H Urine Glucose (UA) Normal Urine Ketones 15 H Urine Occult Blood 150 H Urine Nitrite Negative Urine Bilirubin Negative Urine Urobilinogen Normal Ur Leukocyte Esterase Negative Urine RBC 0-5 SEEN Urine WBC 0 SEEN Ur Squamous Epith Cells 0-5 SEEN Urine Bacteria 0 SEEN Urine Mucus 0 SEEN Radiography Diagnostic Testing: Clinical Impression(s) from Imaging Studies Brain CT 04/18/23 13:02 IMPRESSION: Moderate cortical and central atrophy, moderate cerebellar atrophy. Severe chronic microvascular ischemic change. Moderate posterior right ethmoidal mucosal thickening. Electronically Signed: Mckay Lee MD, JD at 14:10 EDT , Cervical Spine CT 04/18/23 13:02 IMPRESSION: No evidence of acute cervical spinal fracture or spondylolisthesis. There are 3 lytic lesions within the C7 vertebral body. Rule out neoplastic disease. Degenerative changes as above. Electronically Signed: Mckay Lee MD, JD at 14:16 EDT , Chest X-Ray 04/18/23 13:02 IMPRESSION: Left upper lobe infiltrate versus mass. Medial right middle lobe infiltrate. COPD. Electronically Signed: Mckay Lee MD, JD at 14:22 EDT , Lumbar Spine CT 04/18/23 13:02 IMPRESSION: Bilateral fracture of the sacrum in the region of the sacral ala. Focal acute angulation at the S2 segment. Additional findings above. Electronically Signed: Mckay Lee MD, CRISTOBAL at 14:21 EDT , Pelvis X-Ray 04/18/23 13:02 IMPRESSION: Bilateral sacral fracture. Electronically Signed: Mckay Lee MD, CRISTOBAL at 14:23 EDT , Thoracic Spine CT 04/18/23 13:02 IMPRESSION: Scoliosis and diffuse degenerative disc disease. No evidence of acute thoracic spinal fracture or spondylolisthesis. Electronically Signed: Mckay Lee MD, CRISTOBAL at 14:25 EDT , Rhythm Strip Rhythm Strip: Sinus Rhythm Rate: 58 Ectopy: None EKG Initial EKG: Attestation: I personally reviewed and interpreted this EKG as follows: Interpretation: Sinus Bradycardia Comments: Sinus bradycardia at a rate of 58 bpm Left axis deviation Normal ST segments Normal intervals Prior EKG tracings: not available for review Prior: No Prior Management Discussion w/another healthcare provider: Hospitalist Discharge Plan Triage Chief Complaint: Fall ED Provider: Rosalinda Kilgore Dx/Rx/DC Orders Clinical Impression: Rhabdomyolysis, Sacral fracture, closed, Malignancy, Debility Primary Care Provider: Piero Rubin Disposition Disposition: Acute Care Hospital [facility] What to do if you have Problems For any increased pain, shortness of breath, bleeding, nausea or vomiting, chestpain, or any unexpected problems, contact your Primary Care Provider. Call [employer] [facility] ([phone]) or report to the closest Emergency Room. Call 911 if necessary. 04/18/23 1639 <Electronically signed by Rosalinda Kilgore DO> Cosigner Signature (if applicable): CC: Dr. Piero Rubin MD ~ Signed [facility] Work Phone: 1(472) 148-422606-02-2023 Instructions* Patient Instructions* Lacey Zimmer APRN.CNP - 04/17/2023 10:19 AM EDT R.I.C.E. The general care of your injury includes the following: Resting, Icing, Compressing and Elevating the injured area. Remember this as "RICE." REST: Limit the use of the injured body part. ICE: By applying ice to the affected area, swelling and pain can be reduced. Place some ice cubes in a re-sealable (Ziploc) bag and add some water. Put a thin washcloth between the bag and your skin.Apply the ice bag to the area for [...] pillows when lying down. documented in this encounterBluff[facility] Hospital06-02-2023 History of Present illness Narrative* Savanna De Anda RT(R) - 04/17/2023 9:20 AM EDT Radiology Service Progress Note PATIENT NAME: Anastacio Patel DATE OF SERVICE: April 17, 2023 TIME: 9:16 AM PATIENT IDENTITY VERIFICATION COMPLETED USING TWO (2) IDENTIFIERS: Name and Date of confirmedby patient verbally. FALL SCREENING: Has the patient had 2 falls in the last year or 1 fall with injury or currently using an Ambulatory Assistive Device (Walker, Cane, Wheelchair, Crutches, etc.)? Yes, Patient High Riskfor Falls What interventions were put in place [...] RT Skyla(R) April 17, 2023 9:16 AM documented in this encounterBluffton Hospital06-02-2023 History of Present illness Narrative* Lacey Zimmer APRN.[employer] WORKER - 04/17/2023 9:07 AM EDT This note was created using [employer]. Subjective Anastacio Patel is a 83 year [...] history is provided by the patient. No iron pellet tester was used. Fall The accident occurred Yesterday. Fall occurred: ascending stairs. He fell from a height of 1 to 2 ft. He landed on Carpet. There was no blood loss. The point of impact was the left shoulder. The painis present in the left shoulder. The pain [...] No swelling, deformity, effusion, laceration or bony tenderness.Decreased range of motion (related to pain.). Cervical [...] medications as ordered, intermittent rest, and intermittent useof heat - Follow up in 3 days or sooner if symptoms persist or worsen - XR THORACIC LIMITED 2V AP/LAT 4. Hip pain, left - ICD9: 719.45, ICD10: M25.552 +injury - XR HIP GENERAL 3V PELV/AP/LAT LEFT-negative for acute process RICE OTC analgesics Lacey Zimmer APRN.BLACK ASH WORKER documented in this encounterBluffton Hospital06-02-2023 Miscellaneous Notes* Telephone Encounter - Opal Quiroz RN - 04/17/2023 8:08 AM EDT Patient calls to report fall with left shoulder pain. Nurse triage completed. Protocol for shoulderinjury recommends see provider within 4 hours. No [...] balance and fell to the left side, hittinghis left shoulder on the way down. Denies [...] dizziness, fever, weakness. Protocols used: Falls and [id number] documented in this encounterBluffton Hospital04-07-2023 Miscellaneous Notes* Telephone Encounter - AMAURY Rudolph - 02/20/2023 8:54 AM EDT Patient has been identified by name and [...] Thank you. AMAURY Rudolph documented in this encounterBluffton Hospital03-08-2023 Miscellaneous Notes* Telephone Encounter - Jose Marie MA - 01/21/2023 10:22 AM EST Not due, we sent a 90 day supply with 3 refills in September. Patient informed to contact pharmacy. Jose Marie MA * Telephone Encounter - Meryl Tinajero - 01/21/2023 9:50 AM EST Patient has been identified by name and date of : Yes Requested Prescriptions Pending Prescriptions Disp Refills finasteride (PROPECIA) 1 mg tablet 90 tablet 3 Sig: Take 1 tablet by mouth once daily. RX INSTRUCTIONS: Patient aware RX will be sent to pharmacy. No need to notify patient. Meryl Tinajero documented in this encounterBluffton Hospital02-23-2023 Miscellaneous Notes* Telephone Encounter - Idania Mcdaniels MA - 01/08/2023 8:45 AM EST Patient has been identified by name and date of : Yes Requested Prescriptions Pending Prescriptions Disp Refills hydrocortisone 2.5 % cream 30 g 10 Sig: Apply 1 application to affected area twice daily. APPLY TO AFFECTED AREAS RX INSTRUCTIONS: Patient aware RX will be sent to pharmacy. No need to notify patient. Idania Mcdaniels MA Sunil: 08/2022 Nov: 07/2023 Last refill; 04/2022 * Telephone Encounter - Vandana Tinajero - 01/07/2023 3:16 PM EST Patient has been identified by name and date of : Yes Requested Prescriptions Pending Prescriptions Disp Refills hydrocortisone 2.5 % cream 30 g 10 Sig: Apply 1 application to affected area twice daily. APPLY TO AFFECTED AREAS RX INSTRUCTIONS: Patient aware RX will be sent to pharmacy. No need to notify patient. Vandana Tinajero documented in this encounterBluffton Hospital02-17-2023 Miscellaneous Notes* Telephone Encounter - Franchesca Bautista - 2023 1:38 PM EST Patient informed via VM. Advised to call back with any questions or concerns. Franchesca Bautista * Telephone Encounter - Franchesca Bautista - 2023 1:37 PM EST ----- Message from Ines Chatterjee PA-C sent at 2023 7:22 AM EST ----- Negative for covid/flu. Continue as we discussed. documented in this encounterBluffton Hospital02-16-2023 History of Present illness Narrative* Ines Chatterjee PA-C - 01/01/2023 11:52 AM EST Chief Complaint Patient presents with: Sore Throat: [...] MOLECULAR (POC) - COVID WITH FLUA+B, ROUTINE Ines Chatterjee PA-C documented in this encounterBluffton Hospital11-29-2022 Miscellaneous Notes* Addendum Note - Ines Chatterjee PA-C - 10/14/2022 12:18 PM ESTAddended by: INES SWENSON on: 10/14/2022 12:18 PM Modules accepted: Orders * Telephone Encounter - Sheeba More Ma - 10/14/2022 10:48 AM EST Last office visit: 08/25/22 F/u scheduled: 08/05/23 Sheeba More Ma * Telephone Encounter - Angelina Tinajero - 10/14/2022 9:41 AM EST Patient has been identified by name and date of : Yes Requested Prescriptions Pending Prescriptions Disp Refills finasteride (PROPECIA) 1 mg tablet 90 tablet 1 Sig: Take 1 tablet by mouth once daily. RX INSTRUCTIONS: Patient aware RX will be sent to pharmacy. No need to notify patient. Angelina Tinajero documented in this encounterBluffton Hospital10-12-2022 Miscellaneous Notes* Telephone Encounter - Idania Mcdaniels MA - 08/27/2022 9:51 AM EDT Left message for patient to contact office. Idania Mcdaniels MA * Telephone Encounter - Ines Chatterjee PA-C - 08/27/2022 9:45 AM EDT Repeat potassium level was normal. documented in this encounterBluffton Hospital10-11-2022 Miscellaneous Notes* Telephone Encounter - Dipti Sheets LPN - 08/26/2022 11:19 AM EDT Patient returned call and went over notes below from Dr Rubin with understanding. He will go to the lab in the morning. * Telephone Encounter - Harriet Le LPN - 08/26/2022 11:12 AM EDT Left detailed message on identifiable voicemail. * Telephone Encounter - Piero Rubin MD - 08/26/2022 11:09 AM EDT Let patient know lab to get his potassium repeated has been placed. Let him know I'm sorry for forgetting to put the order in during his appt. * Telephone Encounter - Opal Quiroz RN - 08/26/2022 8:36 AM EDT Patient calls to ask if provider would order lab work that was discussed at appointment. He said heneeded something re-checked that was abnormal but couldn't remember what. No orders pended. Recent labs slightly abnormal and wasn't sure what provider had discussed. Opal Quiroz RN documented in this encounterBluffton Hospital10-10-2022 History of Present illness Narrative* Piero Rubin MD - 08/25/2022 2:21 PM EDT Medicare Yearly Visit Medical B eligibilty date not able to find Date of last exam 08/23/2021. 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 Functional Ability/Safety Screen 1. Was the patient's timed Up and Go test unsteady or longer than 30 seconds? No 2. Does the patient need help with the phone, transportation, shopping,preparing meals, housework, laundry, medications or managing money? No 3. Does your home have rugs in the hallway, lack of grab bars in the bathroom, lack of handrails onthe stairs or have poor lighting? No Hearing Evaluation: normal PHYSICAL EXAM BP 140/70 (BP Site: Right Arm, BP Position: Sitting, BP Cuff Size: Regular Adult) Pulse 64 Resp16 Ht 163.8 cm (5' 4.5") Wt 49.4 kg (109 lb) BMI 18.42 kg/m Alert and oriented X 3: YES Body mass index is 18.42 kg/m . 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 Sensation to light touch and crainal nerves2-12 intact.. Health Maintenance List ADVANCE DIRECTIVE DISCUSSION [...] and regular exercise - Patient was counseled [id number] by myself (the billing provider) for the [...] QUADRIVALENT HIGH DOSE AGE 65+: given - PFIZER-BIONTECH COVID-19 BIVALENT BOOSTER VACCINE, AGE 12+ YR: given Requested Prescriptions Signed Prescriptions Disp Refills lisinopril (ZESTRIL, PRINIVIL) 10 mg tablet 90 tablet 1 Sig: Take 1 tablet by mouth once daily. F/u in a year for extensive exam I spent a total of 40 minutes on the date of the service which included preparing to see the patient, [id number] patient care, completing clinical documentation, performing a medically appropriate examination, counseling and educating the patient/family/caregiver and ordering medications, tests, or procedures. Piero Rubin MD documented in this encounterBluffton Hospital09-26-2022 Miscellaneous Notes* Telephone Encounter - Ines Chatterjee PA-C - 08/11/2022 11:53 AM EDT The following approved medication requests have been transmitted electronically. Requested Prescriptions Signed Prescriptions Disp Refills gabapentin (NEURONTIN) 100 mg capsule 180 capsule 3 Sig: Take 2 tablets daily for nerve pain Authorizing Provider: INES CHATTERJEE PA-C * Telephone Encounter - Sheeba More Ma - 08/11/2022 11:45 AM EDT Last office visit: 08/23/21 F/u scheduled: 08/25/22 Sheeba More Ma * Telephone Encounter - Marie Garcia [facility] - 08/11/2022 9:31 AM EDT Patient has been identified by name and date of : Yes Requested Prescriptions Pending Prescriptions Disp Refills gabapentin (NEURONTIN) 100 mg capsule 180 capsule 3 Sig: Take 2 tablets daily for nerve pain RX INSTRUCTIONS: Patient aware RX will be sent to pharmacy. No need to notify patient. Marie Garcia [employer] documented in this encounterBluffton Hospital09-07-2022 Miscellaneous Notes* Telephone Encounter - Ralph Beverly LPN - 07/23/2022 8:55 AM EDT Left message of orders on pt's identified vm. Ralph Beverly LPN * Telephone Encounter - Piero Rubin MD - 07/23/2022 8:46 AM EDT Let patient know labs placed and a urine test. * Telephone Encounter - Phil Billy LPN - 07/23/2022 8:02 AM EDT Pt calling and states he has a wellness exam apt 08/25/22 and would like to get blood work done before apt. Please advise pt when orders are in so he can come in before apt. Also requesting to get his flu shot the day of his apt. Phil Billy LPN documented in this encounterBluffton Hospital06-10-2022 Miscellaneous Notes* Telephone Encounter - Idania Mcdaniels MA - 04/25/2022 9:02 AM EDT Patient has been identified by name and date of : Yes Pending Prescriptions Disp Refills HYDROCORTISONE 2.5 % TOPICAL CREAM 30 g 10 Sig: Apply 1 application to affected area twice daily. APPLY TO AFFECTED AREAS LUPILLO: No RX INSTRUCTIONS: Patient aware RX will be sent to pharmacy. No need to notify patient. Idania Mcdaniels MA Sunil: 08/2021 Nov: 08/2022 Last refill: 03/2021 * Telephone Encounter - Tosha Ya Pss - 04/25/2022 8:49 AM EDT Patient has been identified by name and date of : Yes Pending Prescriptions Disp Refills HYDROCORTISONE 2.5 % TOPICAL CREAM 30 g 10 Sig: Apply 1 application to affected area twice daily. APPLY TO AFFECTED AREAS LUPILLO: No RX INSTRUCTIONS: Patient aware RX will be sent to pharmacy. No need to notify patient. Tosha Ya Pss documented in this encounterBluffton Hospital06-02-2022 Miscellaneous Notes* Telephone Encounter - Ralph Beverly LPN - 04/17/2022 9:15 AM EDT Last refill 12/31/21 Qty: 90 with 1 refill SUNIL 08/23/21 NOV 08/25/22 Ralph Beverly LPN * Telephone Encounter - Jose Antonio Pss - 04/17/2022 8:59 AM EDT Patient has been identified by name and date of : Yes Pending Prescriptions Disp Refills FINASTERIDE 1 MG TABLET 90 tablet 1 Sig: Take 1 tablet by mouth once daily. LUPILLO: No RX INSTRUCTIONS: Patient aware RX escripted to mail away pharmacy. No need to notify patient. Jose Antonio Pss documented in this encounterBluffton Hospital10-11-2017 History of Past illness Narrative* Problem Noted Date Resolved Date Microcytic anemia 08/26/2017 07/25/2020 Hemoptysis 10/24/2015 05/12/2017 Hemoptysis 01/31/2015 06/27/2015 Right middle lobe pneumonia 10/03/201406/16 Plantar wart of left foot 10/15/20092014 Actinic keratosis 04/16/2007 11/29/2014 documented as of this encounter (statuses as of 04/17/2022) [facility] of [facility] illness Narrative* Problem Noted Date Resolved Date Microcytic anemia 08/26/2017 07/25/2020 Hemoptysis 10/24/2015 05/12/2017 Hemoptysis 01/31/2015 06/27/2015 Right middle lobe pneumonia 10/03/201406/16 Plantar wart of left foot 10/15/20092014 Actinic keratosis 04/16/2007 11/29/2014 documented as of this encounter (statuses as of 04/25/2022) [facility] Narrative* Problem Noted Date Resolved Date Microcytic anemia 08/26/2017 07/25/2020 Hemoptysis 10/24/2015 05/12/2017 Hemoptysis 01/31/2015 06/27/2015 Right middle lobe pneumonia 10/03/201406/16 Plantar wart of left foot 10/15/20092014 Actinic keratosis 04/16/2007 11/29/2014 documented as of this encounter (statuses as of 07/23/2022) [facility] Narrative* Problem Noted Date Resolved Date Microcytic anemia 08/26/2017 07/25/2020 Hemoptysis 10/24/2015 05/12/2017 Hemoptysis 01/31/2015 06/27/2015 Right middle lobe pneumonia 10/03/201406/16 Plantar wart of left foot 10/15/20092014 Actinic keratosis 04/16/2007 11/29/2014 documented as of this encounter (statuses as of 08/11/2022) [facility] Narrative* Problem Noted Date Resolved Date Microcytic anemia 08/26/2017 07/25/2020 Hemoptysis 10/24/2015 05/12/2017 Hemoptysis 01/31/2015 06/27/2015 Right middle lobe pneumonia 10/03/201406/16 Plantar wart of left foot 10/15/20092014 Actinic keratosis 04/16/2007 11/29/2014 documented as of this encounter (statuses as of 08/25/2022) [facility] Narrative* Problem Noted Date Resolved Date Microcytic anemia 08/26/2017 07/25/2020 Hemoptysis 10/24/2015 05/12/2017 Hemoptysis 01/31/2015 06/27/2015 Right middle lobe pneumonia 10/03/201406/16 Plantar wart of left foot 10/15/20092014 Actinic keratosis 04/16/2007 11/29/2014 documented as of this encounter (statuses as of 08/26/2022) [facility] Narrative* Problem Noted Date Resolved Date Microcytic anemia 08/26/2017 07/25/2020 Hemoptysis 10/24/2015 05/12/2017 Hemoptysis 01/31/2015 06/27/2015 Right middle lobe pneumonia 10/03/201406/16 Plantar wart of left foot 10/15/20092014 Actinic keratosis 04/16/2007 11/29/2014 documented as of this encounter (statuses as of 08/27/2022) [facility] Narrative* Problem Noted Date Resolved Date Microcytic anemia 08/26/2017 07/25/2020 Hemoptysis 10/24/2015 05/12/2017 Hemoptysis 01/31/2015 06/27/2015 Right middle lobe pneumonia 10/03/201406/16 Plantar wart of left foot 10/15/20092014 Actinic keratosis 04/16/2007 11/29/2014 documented as of this encounter (statuses as of 10/14/2022) [facility] Narrative* Problem Noted Date Resolved Date Microcytic anemia 08/26/2017 07/25/2020 Hemoptysis 10/24/2015 05/12/2017 Hemoptysis 01/31/2015 06/27/2015 Right middle lobe pneumonia 10/03/201406/16 Plantar wart of left foot 10/15/20092014 Actinic keratosis 04/16/2007 11/29/2014 documented as of this encounter (statuses as of 01/01/2023) [facility] Narrative* Problem Noted Date Resolved Date Microcytic anemia 08/26/2017 07/25/2020 Hemoptysis 10/24/2015 05/12/2017 Hemoptysis 01/31/2015 06/27/2015 Right middle lobe pneumonia 10/03/201406/16 Plantar wart of left foot 10/15/20092014 Actinic keratosis 04/16/2007 11/29/2014 documented as of this encounter (statuses as of 2023) [facility] Narrative* Problem Noted Date Resolved Date Microcytic anemia 08/26/2017 07/25/2020 Hemoptysis 10/24/2015 05/12/2017 Hemoptysis 01/31/2015 06/27/2015 Right middle lobe pneumonia 10/03/201406/16 Plantar wart of left foot 10/15/20092014 Actinic keratosis 04/16/2007 11/29/2014 documented as of this encounter (statuses as of 01/08/2023) [facility] N[facility]ative* Problem Noted Date Resolved Date Microcytic anemia 08/26/2017 07/25/2020 Hemoptysis 10/24/2015 05/12/2017 Hemoptysis 01/31/2015 06/27/2015 Right middle lobe pneumonia 10/03/201406/16 Plantar wart of left foot 10/15/20092014 Actinic keratosis 04/16/2007 11/29/2014 documented as of this encounter (statuses as of 01/21/2023) [facility]* Problem Noted Date Resolved Date Microcytic anemia 08/26/2017 07/25/2020 Hemoptysis 10/24/2015 05/12/2017 Hemoptysis 01/31/2015 06/27/2015 Right middle lobe pneumonia 10/03/201406/16 Plantar wart of left foot 10/15/20092014 Actinic keratosis 04/16/2007 11/29/2014 documented as of this encounter (statuses as of 02/20/2023) [facility]* Problem Noted Date Resolved Date Microcytic anemia 08/26/2017 07/25/2020 Hemoptysis 10/24/2015 05/12/2017 Hemoptysis 01/31/2015 06/27/2015 Right middle lobe pneumonia 10/03/201406/16 Plantar wart of left foot 10/15/20092014 Actinic keratosis 04/16/2007 11/29/2014 documented as of this encounter (statuses as of 04/17/2023) [facility]* Problem Noted Date Resolved Date Microcytic anemia 08/26/2017 07/25/2020 Hemoptysis 10/24/2015 05/12/2017 Hemoptysis 01/31/2015 06/27/2015 Right middle lobe pneumonia 10/03/201406/16 Plantar wart of left foot 10/15/20092014 Actinic keratosis 04/16/2007 11/29/2014 documented as of this encounter (statuses as of 04/17/2023) [facility]* Problem Noted Date Resolved Date Microcytic anemia 08/26/2017 07/25/2020 Hemoptysis 10/24/2015 05/12/2017 Hemoptysis 01/31/2015 06/27/2015 Right middle lobe pneumonia 10/03/201406/16 Plantar wart of left foot 10/15/20092014 Actinic keratosis 04/16/2007 11/29/2014 documented as of this encounter (statuses as of 04/21/2023) [facility]* Problem Noted Date Resolved Date Microcytic anemia 08/26/2017 07/25/2020 Hemoptysis 10/24/2015 05/12/2017 Hemoptysis 01/31/2015 06/27/2015 Right middle lobe pneumonia 10/03/201406/16 Plantar wart of left foot 10/15/20092014 Actinic keratosis 04/16/2007 11/29/2014 documented as of this encounter (statuses as of 04/23/2023) [facility]* Problem Noted Date Resolved Date Microcytic anemia 08/26/2017 07/25/2020 Hemoptysis 10/24/2015 05/12/2017 Hemoptysis 01/31/2015 06/27/2015 Right middle lobe pneumonia 10/03/201406/16 Plantar wart of left foot 10/15/20092014 Actinic keratosis 04/16/2007 11/29/2014 documented as of this encounter (statuses as of 04/30/2023) [facility]* Problem Noted Date Resolved Date Microcytic anemia 08/26/2017 07/25/2020 Hemoptysis 10/24/2015 05/12/2017 Hemoptysis 01/31/2015 06/27/2015 Right middle lobe pneumonia 10/03/201406/16 Plantar wart of left foot 10/15/20092014 Actinic keratosis 04/16/2007 11/29/2014 documented as of this encounter (statuses as of 05/16/2023) [facility] History of Past illness Narrative* Problem Noted Date Diagnosed Date Resolved Date Microcytic anemia 08/26/2017 07/25/2020 Hemoptysis 10/24/2015 05/12/2017 Hemoptysis 01/31/2015 06/27/2015 Right middle lobe pneumonia 10/03/2014 06/27/2015 Plantar wart of left foot 10/15/2009 Actinic keratosis 04/16/2007 11/29/2014 documented as of this encounter (statuses as of 06/10/2023) [facility] History of Past illness Narrative* Problem Noted Date Diagnosed Date Resolved Date Microcytic anemia 08/26/2017 07/25/2020 Hemoptysis 10/24/2015 05/12/2017 Hemoptysis 01/31/2015 06/27/2015 Right middle lobe pneumonia 10/03/2014 06/27/2015 Plantar wart of left foot 10/15/2009 Actinic keratosis 04/16/2007 11/29/2014 documented as of this encounter (statuses as of 06/12/2023) [facility] History of Past illness Narrative* Problem Noted Date Diagnosed Date Resolved Date Microcytic anemia 08/26/2017 07/25/2020 Hemoptysis 10/24/2015 05/12/2017 Hemoptysis 01/31/2015 06/27/2015 Right middle lobe pneumonia 10/03/2014 06/27/2015 Plantar wart of left foot 10/15/2009 Actinic keratosis 04/16/2007 11/29/2014 documented as of this encounter (statuses as of 06/21/2023) [facility] History of Past illness Narrative* Problem Noted Date Diagnosed Date Resolved Date Microcytic anemia 08/26/2017 07/25/2020 Hemoptysis 10/24/2015 05/12/2017 Hemoptysis 01/31/2015 06/27/2015 Right middle lobe pneumonia 10/03/2014 06/27/2015 Plantar wart of left foot 10/15/2009 Actinic keratosis 04/16/2007 11/29/2014 documented as of this encounter (statuses as of 06/22/2023) [facility] History of Past illness Narrative* Problem Noted Date Diagnosed Date Resolved Date Microcytic anemia 08/26/2017 07/25/2020 Hemoptysis 10/24/2015 05/12/2017 Hemoptysis 01/31/2015 06/27/2015 Right middle lobe pneumonia 10/03/2014 06/27/2015 Plantar wart of left foot 10/15/2009 Actinic keratosis 04/16/2007 11/29/2014 documented as of this encounter (statuses as of 06/24/2023) [facility] History of Past illness Narrative* Problem Noted Date Diagnosed Date Resolved Date Microcytic anemia 08/26/2017 07/25/2020 Hemoptysis 10/24/2015 05/12/2017 Hemoptysis 01/31/2015 06/27/2015 Right middle lobe pneumonia 10/03/2014 06/27/2015 Plantar wart of left foot 10/15/2009 Actinic keratosis 04/16/2007 11/29/2014 documented as of this encounter (statuses as of 06/25/2023) [facility] History of Past illness Narrative* Problem Noted Date Diagnosed Date Resolved Date Microcytic anemia 08/26/2017 07/25/2020 Hemoptysis 10/24/2015 05/12/2017 Hemoptysis 01/31/2015 06/27/2015 Right middle lobe pneumonia 10/03/2014 06/27/2015 Plantar wart of left foot 10/15/2009 Actinic keratosis 04/16/2007 11/29/2014 documented as of this encounter (statuses as of 07/01/2023) [facility] History of Past illness Narrative* Problem Noted Date Diagnosed Date Resolved Date Microcytic anemia 08/26/2017 07/25/2020 Hemoptysis 10/24/2015 05/12/2017 Hemoptysis 01/31/2015 06/27/2015 Right middle lobe pneumonia 10/03/2014 06/27/2015 Plantar wart of left foot 10/15/2009 Actinic keratosis 04/16/2007 11/29/2014 documented as of this encounter (statuses as of 07/01/2023) [facility] History of Past illness Narrative* Problem Noted Date Diagnosed Date Resolved Date Microcytic anemia 08/26/2017 07/25/2020 Hemoptysis 10/24/2015 05/12/2017 Hemoptysis 01/31/2015 06/27/2015 Right middle lobe pneumonia 10/03/2014 06/27/2015 Plantar wart of left foot 10/15/2009 Actinic keratosis 04/16/2007 11/29/2014 documented as of this encounter (statuses as of 07/02/2023) [facility] History of Past illness Narrative* Problem Noted Date Diagnosed Date Resolved Date Microcytic anemia 08/26/2017 07/25/2020 Hemoptysis 10/24/2015 05/12/2017 Hemoptysis 01/31/2015 06/27/2015 Right middle lobe pneumonia 10/03/2014 06/27/2015 Plantar wart of left foot 10/15/2009 Actinic keratosis 04/16/2007 11/29/2014 documented as of this encounter (statuses as of 07/07/2023) [facility] History of Past illness Narrative* Problem Noted Date Diagnosed Date Resolved Date Microcytic anemia 08/26/2017 07/25/2020 Hemoptysis 10/24/2015 05/12/2017 Hemoptysis 01/31/2015 06/27/2015 Right middle lobe pneumonia 10/03/2014 06/27/2015 Plantar wart of left foot 10/15/2009 Actinic keratosis 04/16/2007 11/29/2014 documented as of this encounter (statuses as of 07/08/2023) [facility] History of Past illness Narrative* Problem Noted Date Diagnosed Date Resolved Date Microcytic anemia 08/26/2017 07/25/2020 Hemoptysis 10/24/2015 05/12/2017 Hemoptysis 01/31/2015 06/27/2015 Right middle lobe pneumonia 10/03/2014 06/27/2015 Plantar wart of left foot 10/15/2009 Actinic keratosis 04/16/2007 11/29/2014 documented as of this encounter (statuses as of 07/09/2023) [facility] of Past illness Narrative* Problem Noted Date Diagnosed Date Resolved Date Microcytic anemia 08/26/2017 07/25/2020 Hemoptysis 10/24/2015 05/12/2017 Hemoptysis 01/31/2015 06/27/2015 Right middle lobe pneumonia 10/03/2014 06/27/2015 Plantar wart of left foot 10/15/2009 Actinic keratosis 04/16/2007 11/29/2014 documented as of this encounter (statuses as of 07/14/2023) [facility] History of Past illness Narrative* Problem Noted Date Diagnosed Date Resolved Date Microcytic anemia 08/26/2017 07/25/2020 Hemoptysis 10/24/2015 05/12/2017 Hemoptysis 01/31/2015 06/27/2015 Right middle lobe pneumonia 10/03/2014 06/27/2015 Plantar wart of left foot 10/15/2009 Actinic keratosis 04/16/2007 11/29/2014 documented as of this encounter (statuses as of 07/22/2023) [facility] History of Past illness Narrative* Problem Noted Date Diagnosed Date Resolved Date Microcytic anemia 08/26/2017 07/25/2020 Hemoptysis 10/24/2015 05/12/2017 Hemoptysis 01/31/2015 06/27/2015 Right middle lobe pneumonia 10/03/2014 06/27/2015 Plantar wart of left foot 10/15/2009 Actinic keratosis 04/16/2007 11/29/2014 documented as of this encounter (statuses as of 10/02/2023) [facility] History of Past illness Narrative* Problem Noted Date Diagnosed Date Resolved Date Microcytic anemia 08/26/2017 07/25/2020 Hemoptysis 10/24/2015 05/12/2017 Hemoptysis 01/31/2015 06/27/2015 Right middle lobe pneumonia 10/03/2014 06/27/2015 Plantar wart of left foot 10/15/2009 Actinic keratosis 04/16/2007 11/29/2014 documented as of this encounter (statuses as of 10/03/2023) [facility] of Past illness Narrative* Problem Noted Date Diagnosed Date Resolved Date Microcytic anemia 08/26/2017 07/25/2020 Hemoptysis 10/24/2015 05/12/2017 Hemoptysis 01/31/2015 06/27/2015 Right middle lobe pneumonia 10/03/2014 06/27/2015 Plantar wart of left foot 10/15/2009 Actinic keratosis 04/16/2007 11/29/2014 documented as of this encounter (statuses as of 10/06/2023) [facility] of Past illness Narrative* Problem Noted Date Diagnosed Date Resolved Date Microcytic anemia 08/26/2017 07/25/2020 Hemoptysis 10/24/2015 05/12/2017 Hemoptysis 01/31/2015 06/27/2015 Right middle lobe pneumonia 10/03/2014 06/27/2015 Plantar wart of left foot 10/15/2009 Actinic keratosis 04/16/2007 11/29/2014 documented as of this encounter (statuses as of 10/15/2023) [facility] History of Past illness Narrative* Problem Noted Date Diagnosed Date Resolved Date Microcytic anemia 08/26/2017 07/25/2020 Hemoptysis 10/24/2015 05/12/2017 Hemoptysis 01/31/2015 06/27/2015 Right middle lobe pneumonia 10/03/2014 06/27/2015 Plantar wart of left foot 10/15/2009 Actinic keratosis 04/16/2007 11/29/2014 documented as of this encounter (statuses as of 10/27/2023) [facility] of Past illness Narrative* Problem Noted Date Diagnosed Date Resolved Date Microcytic anemia 08/26/2017 07/25/2020 Hemoptysis 10/24/2015 05/12/2017 Hemoptysis 01/31/2015 06/27/2015 Right middle lobe pneumonia 10/03/2014 06/27/2015 Plantar wart of left foot 10/15/2009 Actinic keratosis 04/16/2007 11/29/2014 documented as of this encounter (statuses as of 12/22/2023) [facility] History of Past illness Narrative* Problem Noted Date Diagnosed Date Resolved Date Microcytic anemia 08/26/2017 07/25/2020 Hemoptysis 10/24/2015 05/12/2017 Hemoptysis 01/31/2015 06/27/2015 Right middle lobe pneumonia 10/03/2014 06/27/2015 Plantar wart of left foot 10/15/2009 Actinic keratosis 04/16/2007 11/29/2014 documented as of this encounter (statuses as of 12/25/2023) [facility] of Past illness Narrative* Problem Noted Date Diagnosed Date Resolved Date Microcytic anemia 08/26/2017 07/25/2020 Hemoptysis 10/24/2015 05/12/2017 Hemoptysis 01/31/2015 06/27/2015 Right middle lobe pneumonia 10/03/2014 06/27/2015 Plantar wart of left foot 10/15/2009 Actinic keratosis 04/16/2007 11/29/2014 documented as of this encounter (statuses as of 12/26/2023) [facility] History of Past illness Narrative* Problem Noted Date Diagnosed Date Resolved Date Microcytic anemia 08/26/2017 07/25/2020 Hemoptysis 10/24/2015 05/12/2017 Hemoptysis 01/31/2015 06/27/2015 Right middle lobe pneumonia 10/03/2014 06/27/2015 Plantar wart of left foot 10/15/2009 Actinic keratosis 04/16/2007 11/29/2014 documented as of this encounter (statuses as of 02/02/2024) [facility] History of Past illness Narrative* Problem Noted Date Diagnosed Date Resolved Date Microcytic anemia 08/26/2017 07/25/2020 Hemoptysis 10/24/2015 05/12/2017 Hemoptysis 01/31/2015 06/27/2015 Right middle lobe pneumonia 10/03/2014 06/27/2015 Plantar wart of left foot 10/15/2009 Actinic keratosis 04/16/2007 11/29/2014 documented as of this encounter (statuses as of 02/03/2024) [facility] History of Past illness Narrative* Problem Noted Date Diagnosed Date Resolved Date Microcytic anemia 08/26/2017 07/25/2020 Hemoptysis 10/24/2015 05/12/2017 Hemoptysis 01/31/2015 06/27/2015 Right middle lobe pneumonia 10/03/2014 06/27/2015 Plantar wart of left foot 10/15/2009 Actinic keratosis 04/16/2007 11/29/2014 documented as of this encounter (statuses as of 02/19/2024) [facility] Medication refill Issue of repeat prescriptions [facility] Diagnosis Anemia in other chronic diseases classified elsewhere- Primary Benign hypertension Essential hypertension, benign Macrocytic anemia Unspecified deficiency anemia [facility] Diagnosis Lumbar radiculopathy Thoracic or lumbosacral neuritis or radiculitis, unspecified [facility] Diagnosis Medicare annual wellness visit, subsequent- Primary Routine general medical examination at a health care facility Benign hypertension Essential hypertension, benign Macrocytic anemia Unspecified deficiency anemia Lumbar radiculopathy Thoracic or lumbosacral neuritis or radiculitis, unspecified Living will on file at physician's office Advance directive discussed with patient Other specified counseling Encounter for immunization Need for other specified prophylactic vaccination against single bacterial disease [facility] Diagnosis Hyperkalemia- Primary Hyperpotassemia [facility]* Diagnosis Medication refill Issue of repeat prescriptions [facility] Diagnosis Pharyngitis, unspecified etiology- Primary [facility] Diagnosis Medication refill Issue of repeat prescriptions [facility] Diagnosis Fall (on) (from) other stairs and steps, initial encounter- Primary Acute pain of left shoulder Acute bilateral thoracic back pain Hip pain, left Pain in joint, pelvic region and thigh [facility] Diagnosis Onset Date Resolution Status Debility acute Malignancy acute Rhabdomyolysis acute Sacral fracture, closed acut e [facility] Work Phone: Evaluation note* Diagnosis Onset Date Resolution Status Debility acute Frequent falls acute Lung nodule seen on imaging study acute Malignancy acute Pulmonary infiltrates on CXR acute Rhabdomyolysis acute Sacral fracture, closed acut e Debility acute Frequent falls acute Lung nodule seen on imaging study acute [id number] acute Rhabdomyolysis acute Sacral fracture, closed acut e Thrombocytopenia acute Hypertension chronic [facility] Work Phone: Evaluation note* Diagnosis Onset Date Resolution Status Rhabdomyolysis resolved [id number] acute Thrombocytopenia acute Hypertension chronic Rhabdomyolysis resolved [facility] Work Phone: Evaluation note* Diagnosis Lumbar radiculopathy- Primary Thoracic or [...] lump in chest [facility] Diagnosis Abnormal serum protein test- Primary Other nonspecific findings on examination of blood [facility] Diagnosis Abnormal radionuclide bone scan Nonspecific abnormal results of other specified function study [facility] Diagnosis Osteoarthritis of spine with radiculopathy, lumbar region- Primary Primary osteoarthritis of both feet [facility] Diagnosis Onset Date Resolution Status Rhabdomyolysis resolved Thrombocytopenia acute Hypertension chronic [id number] resolved Rhabdomyolysis resolved [facility] Work Phone: Evaluation note* Diagnosis Multiple lung nodules- Primary Other nonspecific abnormal finding of lung field [facility] Diagnosis Closed fracture of sacrum with routine healing, unspecified portion of sacrum, subsequent encounter- Primary Lumbar radiculopathy Thoracic or lumbosacral neuritis or radiculitis, unspecified [facility] Diagnosis Osteoarthritis of spine with radiculopathy, lumbar region- Primary T12 compression fracture, initial encounter ([facility] Diagnosis 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, lumbar region [facility] Diagnosis Onset Date Resolution Status Thrombocytopenia acute Hypertension chronic [id number] resolved Rhabdomyolysis resolved Dementia acute [facility] Work Phone: Evaluation note* Diagnosis Lung nodules Other nonspecific abnormal finding of lung [facility] Onset Date Resolution Status Dementia acute [facility] Work Phone: Evaluation note* Diagnosis Medication refill Issue of repeat prescriptions [facility] Diagnosis Medicare annual wellness visit, subsequent- Primary Routine general medical examination at a health care facility Benign hypertension Essential hypertension, benign History of recurrent TIAs Transient ischemic attack (TIA), and cerebral infarction without residual deficits Dementia, unspecified dementia severity, unspecified dementia type, unspecified whether behavioral, psychotic, or mood disturbance or anxiety (HCC) Macrocytic anemia Unspecified deficiency anemia T12 compression fracture, initial encounter (HCC) Bronchiectasis without complication (HCC) Bronchiectasis without acute exacerbation Valvular heart disease Endocarditis, valve unspecified, unspecified cause [facility] Diagnosis Dementia, unspecified dementia severity, unspecified dementia type, unspecified whether behavioral, psychotic, or mood disturbance or anxiety (HCC)- Primary Risk for falls Personal history of fall [facility] Diagnosis 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, lumbar region [facility] Diagnosis Foot pain, bilateral Pain in limb Acute bilateral ankle pain [facility] Diagnosis Fall (on) (from) other stairs and steps, initial encounter Acute pain of left shoulder Acute bilateral thoracic back pain Hip pain, left Pain in joint, pelvic region and thigh [facility] Diagnosis 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, lumbar region [facility] Diagnosis Osteoarthritis of spine with radiculopathy, lumbar region- Primary documented in this encounter [facility] note* Diagnosis Closed fracture of left hip requiring operative repair, initial encounter (HCC)- Primary 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 documented in this encounter [facility] note* Diagnosis Closed fracture of neck of left femur with routine healing- Primary Aftercare for healing traumatic fracture of hip documented in this encounter [facility] note* Diagnosis Closed fracture of neck of left femur with routine healing- Primary Aftercare for healing traumatic fracture of hip documented in this encounter [facility] note* Diagnosis Medicare annual wellness visit, subsequent- Primary Routine general medical examination at a health care facility Advance directive discussed with patient Other specified counseling Benign hypertension Essential hypertension, benign Bronchiectasis without complication (HCC) Bronchiectasis without acute exacerbation Dementia, unspecified dementia severity, unspecified dementia type, unspecified whether behavioral, psychotic, or mood disturbance or anxiety (HCC) Frequent falls Personal history of fall Leukocytosis, unspecified type Multiple lung nodules Other nonspecific abnormal finding of lung field Valvular heart disease Endocarditis, valve unspecified, 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, lumbar region Closed wedge compression fracture of T12 vertebra with routine healing, subsequent encounter Left displaced femoral neck fracture (HCC) Closed fracture of unspecified part of neck of femur Living will on file at physician's office documented in this encounter [facility] note* Diagnosis Microscopic hematuria- Primary documented in this encounter [facility] note* Diagnosis Medication refill Issue of repeat prescriptions documented in this encounter [facility] for referral (narrative)* Diagnostic Procedure Only (Urgent) - Closed Specialty Diagnoses / Procedures Referred By Berta t Referred To Contact XR IMAGING Diagnoses Fall (on) (from) other stairs and steps, initial encounter Hip pain, left Procedures XR HIP GENERAL 3V PELV/AP/LAT LEFT RADEX HIP UNILATERAL WITH PELVIS 2-3 VIEWS Lacey Zimmer APRN.[employer] [address] [place] [address] Xr Imaging Referral ID Status Reason Start Date Expiration Date V isits Requested Visits Authorized [id number] Closed Auto-Generate d Referral 04/17/2023 05/16/2024 1 1 * Diagnostic Procedure Only (Urgent) - Closed Specialty Diagnoses / Procedures Referred By Contac t Referred To Contact XR IMAGING Diagnoses Fall (on) (from) other stairs and steps, initial encounter Acute bilateral thoracic back pain Procedures XR THORACIC LIMITED 2V AP/LAT RADEX SPINE THORACIC 2 VIEWS Lacey Zimmer APRN.[employer] [address] [place] [address] Xr Imaging Referral ID Status Reason Start Date Expiration Date V isits Requested Visits Authorized [id number] Closed Auto-Generate d Referral 04/17/2023 05/16/2024 1 1 * Diagnostic Procedure Only (Urgent) - Closed Specialty Diagnoses / Procedures Referred By Contac t Referred To Contact XR IMAGING Diagnoses Fall (on) (from) other stairs and steps, initial encounter Acute pain of left shoulder Procedures XR SHOULDER GENERAL 3V OR MORE AP/TRUE AP/OTHER LEFT RADEX SHOULDER COMPLETE MINIMUM 2 VIEWS Lacey Zimmer APRN.[employer] [address] [place] [address] Xr Imaging Referral ID Status Reason Start Date Expiration Date V isits Requested Visits Authorized [id number] Closed Auto-Generate d Referral 04/17/2023 05/16/2024 1 1 [facility] for referral (narrative)* Diagnostic Procedure Only (Routine) - Closed Specialty Diagnoses / Procedures Referred By Contac t Referred To Contact XR IMAGING Diagnoses Foot pain, bilateral Acute bilateral ankle pain Procedures XR FOOT GENERAL 3V AP/LAT/OBL BILATERAL RADEX FOOT COMPLETE MINIMUM 3 VIEWS Piero Rubin MD [address] [place] [address] [place] [address] Referral ID Status Reason Start Date Expiration Date V isits Requested Visits Authorized [id number] Closed Auto-Generate d Referral 06/18/2023 07/17/2024 1 1 [facility] for referral (narrative)* Diagnostic Procedure Only (Urgent) - Closed Specialty Diagnoses / Procedures Referred By Contac t Referred To Contact XR IMAGING Diagnoses Fall (on) (from) other stairs and steps, initial encounter Hip pain, left Procedures XR HIP GENERAL 3V PELV/AP/LAT LEFT RADEX HIP UNILATERAL WITH PELVIS 2-3 VIEWS Lacey Zimmer APRN.[employer] [address] [place] [address] [place] [address] Referral ID Status Reason Start Date Expiration Date V isits Requested Visits Authorized [id number] Closed Auto-Generate d Referral 04/17/2023 05/16/2024 1 1 * Diagnostic Procedure Only (Urgent) - Closed Specialty Diagnoses / Procedures Referred By Contac t Referred To Contact XR IMAGING Diagnoses Fall (on) (from) other stairs and steps, initial encounter Acute bilateral thoracic back pain Procedures XR THORACIC LIMITED 2V AP/LAT RADEX SPINE THORACIC 2 VIEWS Lacey Zimmer APRN.[employer] [address] [place] [address] [place] [address] Referral ID Status Reason Start Date Expiration Date V isits Requested Visits Authorized [id number] Closed Auto-Generate d Referral 04/17/2023 05/16/2024 1 1 * Diagnostic Procedure Only (Urgent) - Closed Specialty Diagnoses / Procedures Referred By Contac t Referred To Contact XR IMAGING Diagnoses Fall (on) (from) other stairs and steps, initial encounter Acute pain of left shoulder Procedures XR SHOULDER GENERAL 3V OR MORE AP/TRUE AP/OTHER LEFT RADEX SHOULDER COMPLETE MINIMUM 2 VIEWS Lacey Zimmer APRN.[employer] [address] [place] [address] [place] [address] Referral ID Status Reason Start Date Expiration Date V isits Requested Visits Authorized [id number] Closed Auto-Generate d Referral 04/17/2023 05/16/2024 1 1 [facility] for referral (narrative)* Diagnostic Procedure Only (Routine) - New Request Specialty Diagnoses / Procedures Referred By Contac t Referred To Contact XR IMAGING Diagnoses Closed fracture of left hip requiring operative repair, initial encounter ([facility]) Status post hip hemiarthroplasty Procedures XR PELVIS 1V AP RADIOLOGIC EXAMINATION PELVIS 1/2 VIEWS Matt Michael MD [address] [address] [place] [address] Referral ID Status Reason Start Date Expiration Date Visits Requested Visits Authorized [id number] New Request Auto-Generat ed Referral 11/26/2024 12/26/2025 1 1 [facility] for visit Narrative* Diagnostic Procedure Only (Routine) - Closed Specialty Diagnoses / Procedures Referred By Contac t Referred To Contact XR IMAGING Diagnoses Foot pain, bilateral Acute bilateral ankle pain Procedures XR FOOT GENERAL 3V AP/LAT/OBL BILATERAL RADEX FOOT COMPLETE MINIMUM 3 VIEWS Piero Rubin MD [address] [place] [address] [place] [address] Referral ID Status Reason Start Date Expiration Date V isits Requested Visits Authorized [id number] Closed Auto-Generate d Referral 06/18/2023 07/17/2024 1 1 [facility] for visit Narrative* Diagnostic Procedure Only (Urgent) - Closed Specialty Diagnoses / Procedures Referred By Contac t Referred To Contact XR IMAGING Diagnoses Fall (on) (from) other stairs and steps, initial encounter Hip pain, left Procedures XR HIP GENERAL 3V PELV/AP/LAT LEFT RADEX HIP UNILATERAL WITH PELVIS 2-3 VIEWS Lacey Zimmer APRN.CNP [address] [place] [address] [place] [address] Referral ID Status Reason Start Date Expiration Date V isits Requested Visits Authorized [id number] Closed Auto-Generate d Referral 04/17/2023 05/16/2024 1 1 [facility] Reason for Referral Specialty Diagnoses / Procedures Referred By Contac t Referred To Contact Diagnoses Medication refill Lacey Zimmer, SLUSHER OPERATOR.BLACK [employer]SH WORKER [address] [place] [address] Referral ID Status Reason Start Date Expiration Date Visits Re quested Visits Authorized [id number] Closed 1 1 Specialty Diagnoses / Procedures Referred By Contac t Referred To Contact Diagnoses Medication refill Ines Chatterjee PA-C [address] [place] [address] Referral ID Status Reason Start Date Expiration Date Visits Re quested Visits Authorized [id number] Closed 1 1 Specialty Diagnoses / Procedures Referred By Contac t Referred To Contact MR IMAGING Diagnoses Radiculopathy of lumbar region Lumbar radiculopathy Foot pain, bilateral Acute bilateral ankle pain Osteoarthritis of spine with radiculopathy, lumbar region Repeated falls Procedures MRI LUMBAR SPINE WO IVC MRI SPINAL CANAL LUMBAR W/O CONTRAST MATERIAL Piero Rubin MD [address] [place] [address] Mr Imaging Referral ID Status Reason Start Date Expiration Date Visits Requested Visits Authorized [id number] Pending Review Auto-Generat ed Referral 06/18/2023 07/17/2024 1 1 Specialty Diagnoses / Procedures Referred By Contac t Referred To Contact XR IMAGING Diagnoses Foot pain, bilateral Acute bilateral ankle pain Procedures XR FOOT GENERAL 3V AP/LAT/OBL BILATERAL RADEX FOOT COMPLETE MINIMUM 3 VIEWS Piero Rubin MD [address] [place] [address] Xr Imaging Referral ID Status Reason Start Date Expiration Date V isits Requested Visits Authorized [id number] Closed Auto-Generate d Referral 06/18/2023 07/17/2024 1 1 Specialty Diagnoses / Procedures Referred By Contac t Referred To Contact Hematology Diagnoses Abnormal radionuclide bone scan Procedures CONSULT TO HEMATOLOGY OFFICE/OUTPATIENT NEW HIGH MDM 60-74 MINUTES Piero Rubin MD [address] [place] [address] Referral ID Status Reason Start Date Expiration Date Visits Requested Visits Authorized [id number] Pending Review PCP Requested Referral 06/29/2023 06/28/2024 1 1 Specialty Diagnoses / Procedures Referred By Contac t Referred To Contact Orthopedics Diagnoses T12 compression fracture, initial encounter ([facility]) Osteoarthritis of spine with radiculopathy, lumbar region Procedures CONSULT TO ORTHOPAEDICS OFFICE/OUTPATIENT [facility] MDM 60-74 MINUTES Piero Rubin MD [address] [place] [address] Referral ID Status Reason Start Date Expiration Date Visits Requested Visits Authorized [id number] Pending Review PCP Requested Referral 07/14/2023 07/13/2024 1 1 Referral ID Status Reason Start Date Expiration Date Visits Re quested Visits Authorized [id number] Closed 1 1 Advance Directives No Advanced Directives Records FoundDocuments on File Type Date Recorded 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 Advance Directive(s) 11/02/2017 11:16 AM Advance Directive(s) 06/09/2016 2:37 PM Advance Directive(s) 04/29/2011 12:00 AM Advance Directive(s) 01/01/2007 12:00 AM Documents on File Type Date Recorded 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 Advance Directive(s) 11/02/2017 11:16 AM Advance Directive(s) 06/09/2016 2:37 PM Advance Directive(s) 04/29/2011 12:00 AM Advance Directive(s) 01/01/2007 12:00 AM Documents on File Type Date Recorded 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 Advance Directive(s) 04/29/2011 Advance Directive(s) 01/01/2007 Documents on File Type Date Recorded 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 Advance Directive(s) 04/29/2011 Advance Directive(s) 01/01/2007 Advance Directive Response Recorded Date/ Time Name of Medical Power of Case Finishing Machine Adjuster MATT STEVENS NO April 18, 2023 12:31pm Living Will Yes April 18, 2023 1 2:31pm Power of Case Finishing Machine Adjuster Yes April 18, 2023 12:31pm Advance Directive Response Recorded Date/ Time Name of Medical Power of Case Finishing Machine Adjuster Matt Stevens no - son April 18, 2023 5:20pm Name of Medical Power of Case Finishing Machine Adjuster Alcon Patel , son April 27, 2023 2:36pm Living Will Yes April 27, 2023 2:36pm Power of Case Finishing Machine Adjuster Yes April 27 2:36pm Advance Directive Response Recorded Date/ Time Name of Medical Power of Case Finishing Machine Adjuster Alcon Patel , son April 27, 2023 1:36pm Living Will No October 02, 2 023 4:44pm Power of Case Finishing Machine Adjuster No October 02, 2023 4:44pm Advance Directive Response Recorded Date/ Time Living Will No October 02, 2 023 4:44pm Power of Case Finishing Machine Adjuster No October 02, 2023 4:44pm Date Activated Date Inactivated Comments 10/28/2024 8:03 AM Question Answer Comments DNR Order Discussed With: PatientState-Approved DNR Identification Date Activated Date Inactivated Comments 10/28/2024 4:26 AM 10/28/2024 8:03 AM Question Answer Comments DNR Order Discussed With: Patient Surrogate Decision Maker Name: DNR order in [facility] Date Activated Date Inactivated Comments 10/28/2024 8:03 AM 11/02/2024 1:58 PM Date Activated Date Inactivated Comments 10/28/2024 8:03 AM 11/02/2024 1:58 PM Question Answer Comments DNR Order Discussed With: PatientState-Approved DNR Identification Date Activated Date Inactivated Comments 10/28/2024 4:26 AM 10/28/2024 8:03 AM Question Answer Comments DNR Order Discussed With: Patient Surrogate Decision Maker Name: DNR order in [facility] Chief Complaint and Reason for Visit Chief Complaint RHABDO WITH POSS MAL IGNANCY Reason for Visit Debility Malignancy Rhabdomyolysis Sacral fracture, closed Chief Complaint RHABDO WITH POSS MAL IGNANCY RHABDO WITH POSS MALIGNANCY RHABDO WITH POSS MALIGNANCY RHABDO WITH POSS MALIGNANCY RHABDO WITH POSS MALIGNANCY RHABDO WITH POSS MALIGNANCY RHABDO WITH POSS MALIGNANCY RHABDO WITH POSS MALIGNANCY RHABDO WITH POSS MALIGNANCY RHABDO WITH POSS MALIGNANCY RHABDO WITH POSS MALIGNANCY RHABDO,BILATERAL SACRAL FRACTURE ABNORMAL MRI FINDINGS CERVICAL SPINE Reason for Visit Debility Frequent falls Lung nodule seen on imaging study Malignancy Pulmonary infiltrates on CXR Rhabdomyolysis Sacral fracture, closed Debility Frequent falls Lung nodule seen on imaging study [id number] Rhabdomyolysis Sacral fracture, closed Thrombocytopenia Hypertension Chief Complaint RHABDO WITH POSS MAL IGNANCY RHABDO WITH POSS MALIGNANCY RHABDO WITH POSS MALIGNANCY RHABDO WITH POSS MALIGNANCY RHABDO WITH POSS MALIGNANCY RHABDO WITH POSS MALIGNANCY RHABDO WITH POSS MALIGNANCY RHABDO WITH POSS MALIGNANCY RHABDO WITH POSS MALIGNANCY RHABDO WITH POSS MALIGNANCY RHABDO WITH POSS MALIGNANCY RHABDO,BILATERAL SACRAL FRACTURE ABNORMAL MRI FINDINGS CERVICAL SPINE Reason for Visit Rhabdomyolysis [id number] Thrombocytopenia Hypertension Rhabdomyolysis Chief Complaint RHABDO WITH POSS MAL IGNANCY RHABDO WITH POSS MALIGNANCY RHABDO WITH POSS MALIGNANCY RHABDO WITH POSS MALIGNANCY RHABDO WITH POSS MALIGNANCY RHABDO WITH POSS MALIGNANCY RHABDO WITH POSS MALIGNANCY RHABDO WITH POSS MALIGNANCY RHABDO WITH POSS MALIGNANCY RHABDO WITH POSS MALIGNANCY RHABDO WITH POSS MALIGNANCY RHABDO,BILATERAL SACRAL FRACTURE ABNORMAL MRI FINDINGS CERVICAL SPINE ADMISSION EXAM Other nonspecific abnormal finding of lung field Reason for Visit Rhabdomyolysis Thrombocytopenia Hypertension [id number] Rhabdomyolysis Chief Complaint RHABDO WITH POSS MAL IGNANCY RHABDO WITH POSS MALIGNANCY RHABDO WITH POSS MALIGNANCY RHABDO WITH POSS MALIGNANCY RHABDO WITH POSS MALIGNANCY RHABDO WITH POSS MALIGNANCY RHABDO WITH POSS MALIGNANCY RHABDO WITH POSS MALIGNANCY RHABDO WITH POSS MALIGNANCY RHABDO WITH POSS MALIGNANCY RHABDO WITH POSS MALIGNANCY RHABDO,BILATERAL SACRAL FRACTURE ABNORMAL MRI FINDINGS CERVICAL SPINE ADMISSION EXAM Other nonspecific abnormal finding of lung field LUMBAR RADICULOPATHY Reason for Visit Rhabdomyolysis Thrombocytopenia Hypertension [id number] Rhabdomyolysis Chief Complaint RHABDO,BILATERAL SAC RAL FRACTURE Other nonspecific abnormal finding of lung field LUMBAR RADICULOPATHY COGNITIVE DYSFUNCTION weakness Reason for Visit Thrombocytopenia Hypertension [id number] Rhabdomyolysis Dementia Chief Complaint COGNITIVE DYSFUNCTIO N weakness MILD DEMENTIA Reason for Visit Dementia Chief Complaint COGNITIVE DYSFUNCTIO N weakness MILD DEMENTIA Other intervertebral disc degeneration, lumbosacra Reason for Visit Dementia Summary Purpose Family History No Family History Records Found Additional Source Comments Source Comments (unrecognize d section and content) In the event this informatio n is protected by the Federal Confidentiality of Alcohol and Drug Abuse Patient Records regulations: The Federal rules restrict any use of the information to criminally investigate or prosecute any alcohol or drug abuse patient.[facility] the event this information is protected by the Federal Confidentiality of Alcohol and Drug Abuse Patient Records regulations: The Federal rules restrict any use of the information to criminally investigate or prosecute any alcohol or drug abuse patient.[facility]In the event this information is protected by the Federal Confidentiality of Alcohol and Drug Abuse Patient Records regulations: The Federal rules restrict any use of the information to criminally investigate or prosecute any alcohol or drug abuse patient.[facility]In the event this information is protected by the Federal Confidentiality of Alcohol and Drug Abuse Patient Records regulations: The Federal rules restrict any use of the information to criminally investigate or prosecute any alcohol or drug abuse patient.[facility]In the event this information is protected by the Federal Confidentiality of Alcohol and Drug Abuse Patient Records regulations: The Federal rules restrict any use of the information to criminally investigate or prosecute any alcohol or drug abuse patient.[facility]In the event this information is protected by the Federal Confidentiality of Alcohol and Drug Abuse Patient Records regulations: The Federal rules restrict any use of the information to criminally investigate or prosecute any alcohol or drug abuse patient.[facility]In the event this information is protected by the Federal Confidentiality of Alcohol and Drug Abuse Patient Records regulations: The Federal rules restrict any use of the information to criminally investigate or prosecute any alcohol or drug abuse patient.[facility]In the event this information is protected by the Federal Confidentiality of Alcohol and Drug Abuse Patient Records regulations: The Federal rules restrict any use of the information to criminally investigate or prosecute any alcohol or drug abuse patient.[facility]In the event this information is protected by the Federal Confidentiality of Alcohol and Drug Abuse Patient Records regulations: The Federal rules restrict any use of the information to criminally investigate or prosecute any alcohol or drug abuse patient.[facility]In the event this information is protected by the Federal Confidentiality of Alcohol and Drug Abuse Patient Records regulations: The Federal rules restrict any use of the information to criminally investigate or prosecute any alcohol or drug abuse patient.[facility] HospitalIn the event this information is protected by the Federal Confidentiality of Alcohol and Drug Abuse Patient Records regulations: The Federal rules restrict any use of the information to criminally investigate or prosecute any alcohol or drug abuse patient.[facility] HospitalIn the event this information is protected by the Federal Confidentiality of Alcohol and Drug Abuse Patient Records regulations: The Federal rules restrict any use of the information to criminally investigate or prosecute any alcohol or drug abuse patient.[facility] HospitalIn the event this information is protected by the Federal Confidentiality of Alcohol and Drug Abuse Patient Records regulations: The Federal rules restrict any use of the information to criminally investigate or prosecute any alcohol or drug abuse patient.[facility] HospitalIn the event this information is protected by the Federal Confidentiality of Alcohol and Drug Abuse Patient Records regulations: The Federal rules restrict any use of the information to criminally investigate or prosecute any alcohol or drug abuse patient.[facility] HospitalIn the event this information is protected by the Federal Confidentiality of Alcohol and Drug Abuse Patient Records regulations: The Federal rules restrict any use of the information to criminally investigate or prosecute any alcohol or drug abuse patient.[facility] HospitalIn the event this information is protected by the Federal Confidentiality of Alcohol and Drug Abuse Patient Records regulations: The Federal rules restrict any use of the information to criminally investigate or prosecute any alcohol or drug abuse patient.[facility] HospitalIn the event this information is protected by the Federal Confidentiality of Alcohol and Drug Abuse Patient Records regulations: The Federal rules restrict any use of the information to criminally investigate or prosecute any alcohol or drug abuse patient.[facility] HospitalIn the event this information is protected by the Federal Confidentiality of Alcohol and Drug Abuse Patient Records regulations: The Federal rules restrict any use of the information to criminally investigate or prosecute any alcohol or drug abuse patient.[facility] HospitalIn the event this information is protected by the Federal Confidentiality of Alcohol and Drug Abuse Patient Records regulations: The Federal rules restrict any use of the information to criminally investigate or prosecute any alcohol or drug abuse patient.[facility] HospitalIn the event this information is protected by the Federal Confidentiality of Alcohol and Drug Abuse Patient Records regulations: The Federal rules restrict any use of the information to criminally investigate or prosecute any alcohol or drug abuse patient.[facility] HospitalIn the event this information is protected by the Federal Confidentiality of Alcohol and Drug Abuse Patient Records regulations: The Federal rules restrict any use of the information to criminally investigate or prosecute any alcohol or drug abuse patient.[facility] HospitalIn the event this information is protected by the Federal Confidentiality of Alcohol and Drug Abuse Patient Records regulations: The Federal rules restrict any use of the information to criminally investigate or prosecute any alcohol or drug abuse patient.[facility] HospitalIn the event this information is protected by the Federal Confidentiality of Alcohol and Drug Abuse Patient Records regulations: The Federal rules restrict any use of the information to criminally investigate or prosecute any alcohol or drug abuse patient.[facility] HospitalIn the event this information is protected by the Federal Confidentiality of Alcohol and Drug Abuse Patient Records regulations: The Federal rules restrict any use of the information to criminally investigate or prosecute any alcohol or drug abuse patient.[facility]In the event this information is protected by the Federal Confidentiality of Alcohol and Drug Abuse Patient Records regulations: The Federal rules restrict any use of the information to criminally investigate or prosecute any alcohol or drug abuse patient.[facility] HospitalIn the event this information is protected by the Federal Confidentiality of Alcohol and Drug Abuse Patient Records regulations: The Federal rules restrict any use of the information to criminally investigate or prosecute any alcohol or drug abuse patient.[facility] HospitalIn the event this information is protected by the Federal Confidentiality of Alcohol and Drug Abuse Patient Records regulations: The Federal rules restrict any use of the information to criminally investigate or prosecute any alcohol or drug abuse patient.[facility] HospitalIn the event this information is protected by the Federal Confidentiality of Alcohol and Drug Abuse Patient Records regulations: The Federal rules restrict any use of the information to criminally investigate or prosecute any alcohol or drug abuse patient.[facility] HospitalIn the event this information is protected by the Federal Confidentiality of Alcohol and Drug Abuse Patient Records regulations: The Federal rules restrict any use of the information to criminally investigate or prosecute any alcohol or drug abuse patient.[facility] HospitalIn the event this information is protected by the Federal Confidentiality of Alcohol and Drug Abuse Patient Records regulations: The Federal rules restrict any use of the information to criminally investigate or prosecute any alcohol or drug abuse patient.[facility] HospitalIn the event this information is protected by the Federal Confidentiality of Alcohol and Drug Abuse Patient Records regulations: The Federal rules restrict any use of the information to criminally investigate or prosecute any alcohol or drug abuse patient.[facility] HospitalIn the event this information is protected by the Federal Confidentiality of Alcohol and Drug Abuse Patient Records regulations: The Federal rules restrict any use of the information to criminally investigate or prosecute any alcohol or drug abuse patient.[facility] HospitalIn the event this information is protected by the Federal Confidentiality of Alcohol and Drug Abuse Patient Records regulations: The Federal rules restrict any use of the information to criminally investigate or prosecute any alcohol or drug abuse patient.[facility] HospitalIn the event this information is protected by the Federal Confidentiality of Alcohol and Drug Abuse Patient Records regulations: The Federal rules restrict any use of the information to criminally investigate or prosecute any alcohol or drug abuse patient.[facility] HospitalIn the event this information is protected by the Federal Confidentiality of Alcohol and Drug Abuse Patient Records regulations: The Federal rules restrict any use of the information to criminally investigate or prosecute any alcohol or drug abuse patient.[facility] HospitalIn the event this information is protected by the Federal Confidentiality of Alcohol and Drug Abuse Patient Records regulations: The Federal rules restrict any use of the information to criminally investigate or prosecute any alcohol or drug abuse patient.[facility] HospitalIn the event this information is protected by the Federal Confidentiality of Alcohol and Drug Abuse Patient Records regulations: The Federal rules restrict any use of the information to criminally investigate or prosecute any alcohol or drug abuse patient.[facility] HospitalIn the event this information is protected by the Federal Confidentiality of Alcohol and Drug Abuse Patient Records regulations: The Federal rules restrict any use of the information to criminally investigate or prosecute any alcohol or drug abuse patient.[facility] HospitalIn the event this information is protected by the Federal Confidentiality of Alcohol and Drug Abuse Patient Records regulations: The Federal rules restrict any use of the information to criminally investigate or prosecute any alcohol or drug abuse patient.[facility] HospitalIn the event this information is protected by the Federal Confidentiality of Alcohol and Drug Abuse Patient Records regulations: The Federal rules restrict any use of the information to criminally investigate or prosecute any alcohol or drug abuse patient.[facility] HospitalIn the event this information is protected by the Federal Confidentiality of Alcohol and Drug Abuse Patient Records regulations: The Federal rules restrict any use of the information to criminally investigate or prosecute any alcohol or drug abuse patient.[facility] HospitalIn the event this information is protected by the Federal Confidentiality of Alcohol and Drug Abuse Patient Records regulations: The Federal rules restrict any use of the information to criminally investigate or prosecute any alcohol or drug abuse patient.[facility] HospitalIn the event this information is protected by the Federal Confidentiality of Alcohol and Drug Abuse Patient Records regulations: The Federal rules restrict any use of the information to criminally investigate or prosecute any alcohol or drug abuse patient.[facility] HospitalIn the event this information is protected by the Federal Confidentiality of Alcohol and Drug Abuse Patient Records regulations: The Federal rules restrict any use of the information to criminally investigate or prosecute any alcohol or drug abuse patient.[facility] HospitalIn the event this information is protected by the Federal Confidentiality of Alcohol and Drug Abuse Patient Records regulations: The Federal rules restrict any use of the information to criminally investigate or prosecute any alcohol or drug abuse patient.[facility] HospitalIn the event this information is protected by the Federal Confidentiality of Alcohol and Drug Abuse Patient Records regulations: The Federal rules restrict any use of the information to criminally investigate or prosecute any alcohol or drug abuse patient.[facility] HospitalIn the event this information is protected by the Federal Confidentiality of Alcohol and Drug Abuse Patient Records regulations: The Federal rules restrict any use of the information to criminally investigate or prosecute any alcohol or drug abuse patient.[facility] HospitalIn the event this information is protected by the Federal Confidentiality of Alcohol and Drug Abuse Patient Records regulations: The Federal rules restrict any use of the information to criminally investigate or prosecute any alcohol or drug abuse patient.[facility] HospitalIn the event this information is protected by the Federal Confidentiality of Alcohol and Drug Abuse Patient Records regulations: The Federal rules restrict any use of the information to criminally investigate or prosecute any alcohol or drug abuse patient.[facility] HospitalIn the event this information is protected by the Federal Confidentiality of Alcohol and Drug Abuse Patient Records regulations: The Federal rules restrict any use of the information to criminally investigate or prosecute any alcohol or drug abuse patient.[facility] HospitalIn the event this information is protected by the Federal Confidentiality of Alcohol and Drug Abuse Patient Records regulations: The Federal rules restrict any use of the information to criminally investigate or prosecute any alcohol or drug abuse patient.[facility] HospitalIn the event this information is protected by the Federal Confidentiality of Alcohol and Drug Abuse Patient Records regulations: The Federal rules restrict any use of the information to criminally investigate or prosecute any alcohol or drug abuse patient.[facility] HospitalIn the event this information is protected by the Federal Confidentiality of Alcohol and Drug Abuse Patient Records regulations: The Federal rules restrict any use of the information to criminally investigate or prosecute any alcohol or drug abuse patient.[facility] HospitalIn the event this information is protected by the Federal Confidentiality of Alcohol and Drug Abuse Patient Records regulations: The Federal rules restrict any use of the information to criminally investigate or prosecute any alcohol or drug abuse patient.[facility] HospitalIn the event this information is protected by the Federal Confidentiality of Alcohol and Drug Abuse Patient Records regulations: The Federal rules restrict any use of the information to criminally investigate or prosecute any alcohol or drug abuse patient.[facility] HospitalIn the event this information is protected by the Federal Confidentiality of Alcohol and Drug Abuse Patient Records regulations: The Federal rules restrict any use of the information to criminally investigate or prosecute any alcohol or drug abuse patient.[facility] HospitalIn the event this information is protected by the Federal Confidentiality of Alcohol and Drug Abuse Patient Records regulations: The Federal rules restrict any use of the information to criminally investigate or prosecute any alcohol or drug abuse patient.[facility] HospitalIn the event this information is protected by the Federal Confidentiality of Alcohol and Drug Abuse Patient Records regulations: The Federal rules restrict any use of the information to criminally investigate or prosecute any alcohol or drug abuse patient.[facility] HospitalIn the event this information is protected by the Federal Confidentiality of Alcohol and Drug Abuse Patient Records regulations: The Federal rules restrict any use of the information to criminally investigate or prosecute any alcohol or drug abuse patient.[facility] HospitalIn the event this information is protected by the Federal Confidentiality of Alcohol and Drug Abuse Patient Records regulations: The Federal rules restrict any use of the information to criminally investigate or prosecute any alcohol or drug abuse patient.[facility] HospitalIn the event this information is protected by the Federal Confidentiality of Alcohol and Drug Abuse Patient Records regulations: The Federal rules restrict any use of the information to criminally investigate or prosecute any alcohol or drug abuse patient.[facility] HospitalIn the event this information is protected by the Federal Confidentiality of Alcohol and Drug Abuse Patient Records regulations: The Federal rules restrict any use of the information to criminally investigate or prosecute any alcohol or drug abuse patient.[facility] HospitalIn the event this information is protected by the Federal Confidentiality of Alcohol and Drug Abuse Patient Records regulations: The Federal rules restrict any use of the information to criminally investigate or prosecute any alcohol or drug abuse patient.[facility] HospitalIn the event this information is protected by the Federal Confidentiality of Alcohol and Drug Abuse Patient Records regulations: The Federal rules restrict any use of the information to criminally investigate or prosecute any alcohol or drug abuse patient.[facility] HospitalIn the event this information is protected by the Federal Confidentiality of Alcohol and Drug Abuse Patient Records regulations: The Federal rules restrict any use of the information to criminally investigate or prosecute any alcohol or drug abuse patient.[facility] HospitalIn the event this information is protected by the Federal Confidentiality of Alcohol and Drug Abuse Patient Records regulations: The Federal rules restrict any use of the information to criminally investigate or prosecute any alcohol or drug abuse patient.[facility] HospitalIn the event this information is protected by the Federal Confidentiality of Alcohol and Drug Abuse Patient Records regulations: The Federal rules restrict any use of the information to criminally investigate or prosecute any alcohol or drug abuse patient.[facility] HospitalIn the event this information is protected by the Federal Confidentiality of Alcohol and Drug Abuse Patient Records regulations: The Federal rules restrict any use of the information to criminally investigate or prosecute any alcohol or drug abuse patient.[facility] HospitalIn the event this information is protected by the Federal Confidentiality of Alcohol and Drug Abuse Patient Records regulations: The Federal rules restrict any use of the information to criminally investigate or prosecute any alcohol or drug abuse patient.[facility] HospitalIn the event this information is protected by the Federal Confidentiality of Alcohol and Drug Abuse Patient Records regulations: The Federal rules restrict any use of the information to criminally investigate or prosecute any alcohol or drug abuse patient.[facility] HospitalIn the event this information is protected by the Federal Confidentiality of Alcohol and Drug Abuse Patient Records regulations: The Federal rules restrict any use of the information to criminally investigate or prosecute any alcohol or drug abuse patient.[facility] Reason for Visit (unrecogniz ed section and content) Reason Comments Medicare Wellness Exam Specialty Diagnoses / Procedures Referred By Berta medina Referred To Contact FAMILY MEDICINE Diagnoses physical Procedures physical Self [facility] [address] [place] [address] Referral ID Status Reason Start Date Expiration Date Visits Requested Visits Authorized [id number] Outside PCP OON/Self Pay Override 08/10/2023 02/06/2024 1 1 Reason Onset Date Comments Refill Request 04/17/2022 Reason Onset Date Comments Refill Request 04/25/2022 Reason Comments requesitng lab orders Reason Comments Refill Request Reason Comments Patient Question Reason Comments Results [...] Bruner MD [address] [place] [address] [place] [address] Referral ID Status Reason Start Date Expiration Date V isits Requested Visits Authorized [id number] Closed Auto-Generate d Referral 09/21/2023 08/11/2024 1 1 Reason Comments outside neuro Reason Onset Date Comments Refill Request 12/21/2023 Refill Request 12/22/2023 Reason Comments Outside neurology Reason Comments send copy of letter to his father Results Reason Comments Follow Up Reason Onset Date Comments Refill Request 05/25/2024 Reason Comments Outside Imaging Reason Comments ER Discharge Summary Reason Onset Date Comments Population Health Navigation Outreach 11/22/2024 [employer] Reason Comments Home Health Orders Reason Comments Established Patient Post Op Reason Comments [facility], OT plan of care Reason Comments re-faxed paperwork Reason Comments [facility] OT POC Reason Onset Date Comments Results 01/04/2025 Care Teams (unrecognized sec tion and content) Value Stream Leader Relationship Specialty Start Date End Date Piero Rubin MD [address] [place] [address] PCP - General Family Practice 08/23/21 Value Stream Leader Relationship Specialty Start Date End Date Piero Rubin MD [address] [place] [address] PCP - General Family Practice 08/23/21 Value Stream Leader Relationship Specialty Start Date End Date Piero Rubin MD [address] [place] [address] PCP - General Family Practice 08/23/21 Value Stream Leader Relationship Specialty Start Date End Date Piero Rubin MD [address] [place] [address] PCP - General Family Medicine 08/23/21 Value Stream Leader Relationship Specialty Start Date End Date Piero Rubin MD [facility] [place] [address] PCP - General Family Medicine 08/23/21 Value Stream Leader Relationship Specialty Start Date End Date Piero Rubin MD [address] [place] [address] PCP - General Family Medicine 08/23/21 Value Stream Leader Relationship Specialty Start Date End Date Piero Rubin MD [address] [place] [address] PCP - General Family Medicine 08/23/21 Value Stream Leader Relationship Specialty Start Date End Date Piero Rubin MD [address] [place] [address] PCP - General Family Medicine 08/23/21 Value Stream Leader Relationship Specialty Start Date End Date Piero Rubin MD [address] [place] [address] PCP - General Family Medicine 08/23/21 Value Stream Leader Relationship Specialty Start Date End Date Piero Rubin MD [address] [place], [place] [address] PCP - General Family Medicine 08/23/21 Team Status: Active Member Role Status Dates Dr. Benny Woodall III, MD Family Provider Active Dr. Piero Rubin MD Primary Care Provider Active Team Status: Active Member Role Status Dates Dr. Piero Rubin MD Primary Care Provider Active Dr. Rosalinda Kilgore , DO Emergency Provider Active Dr. Nicholas Marroquin MD Admit Provider, Attending Provider Active Team Status: Active Member Role Status Dates Dr. Piero Rubin MD Primary Care Provider Active Dr. Rosalinda Kilgore , DO Emergency Provider Active Dr. Nicholas Marroquin MD Admit Provider, Other Pro vider Active Dr. Miles Stout MD Attending Provider, Other Provid er Active Dr. Dewayne Valdovinos MD Other Provider Active Dr. Ebenezer Sy MD Other Provider Active Dr. Nii Black , DO Other Provider Active Francy Osei TELECOMMUNICATIONS NETWORK PLANNER, TELECOMMUNICATIONS NETWORK PLANNER-C Other Provider Active Dr. Bill Mae MD Other Provider Active Team Status: Active Member Role Status Dates Dr. Piero Rubin MD Primary Care Provider Active Dr. Rosalinda Kilgore , DO Emergency Provider Active Dr. Nicholas Marroquin MD Admit Provider, Other Pro vider Active Dr. Dewayne Valdovinos MD Other Provider Active Dr. Nii Black , DO Other Provider Active Dr. Ebenezer Sy MD Attending Provider, Other Pro vider Active Dr. Bill Mae MD Other Provider Active Francy Osei TELECOMMUNICATIONS NETWORK PLANNER, TELECOMMUNICATIONS NETWORK PLANNER-C Other Provider Active Dr. Jena Sawyer MD Other Provider Active Dr. Miles Stout MD Other Provider Active Team Status: Active Member Role Status Dates Dr. Piero Rubin MD Primary Care Provider Active Dr. Rosalinda Kilgore , DO Emergency Provider Active Dr. Nicholas Marroquin MD Admit Provider, Other Pro vider Active Dr. Dewayne Valdovinos MD Other Provider Active Dr. Nii Black , DO Other Provider Active Dr. Ebenezer Sy MD Other Provider Active Dr. Bill Mae MD Other Provider Active Francy Osei TELECOMMUNICATIONS NETWORK PLANNER, TELECOMMUNICATIONS NETWORK PLANNER-C Other Provider Active Dr. Jena Sawyer MD Attending Provider, Other Prov ider Active Dr. Miles Stout MD Other Provider Active Team Status: Active Member Role Status Dates Dr. Piero Rubin MD Primary Care Provider Active Dr. Rosalinda Kilgore , DO Emergency Provider Active Dr. Nicholas Marroquin MD Admit Provider, Other Pro vider Active Dr. Dewayne Valdovinos MD Other Provider Active Dr. Nii Black , DO Other Provider Active Dr. Ebenezer Sy MD Other Provider Active Dr. Bill Mae MD Other Provider Active Francy Osei NP, TELECOMMUNICATIONS NETWORK PLANNER-C Other Provider Active Dr. Jena Sawyer MD Attending Provider, Other Prov ider Active Dr. Miles Stout MD Other Provider Active Dr. Raven Saucedo MD Other Provider Active Team Status: Active Member Role Status Dates Dr. Piero Rubin MD Primary Care Provider Active Dr. Rosalinda Kilgore , DO Emergency Provider Active Dr. Nicholas Marroquin MD Admit Provider, Other Pro vider Active Dr. Dewayne Valdovinos MD Other Provider Active Dr. Nii Black , DO Other Provider Active Dr. Ebenezer Sy MD Attending Provider, Other Pro vider Active Dr. Bill Mae MD Other Provider Active Francy Osei NP, TELECOMMUNICATIONS NETWORK PLANNER-C Other Provider Active Dr. Jena Sawyer MD Other Provider Active Dr. Miles Stout MD Other Provider Active Dr. Raven Saucedo MD Other Provider Active Team Status: Active Member Role Status Dates Dr. Piero Rubin MD Primary Care Provider Active Dr. Rosalinda Kilgore , DO Emergency Provider Active Dr. Nicholas Marroquin MD Admit Provider, Other Pro vider Active Dr. Dewayne Valdovinos MD Attending Provider, Other Provid er Active Dr. Nii Black , DO Other Provider Active Dr. Ebenezer Sy MD Other Provider Active Dr. Bill Mae MD Other Provider Active Francy Osei NP, TELECOMMUNICATIONS NETWORK PLANNER-C Other Provider Active Dr. Jena Sawyer MD Other Provider Active Dr. Miles Stout MD Other Provider Active Dr. Raven Saucedo MD Other Provider Active Team Status: Inactive Member Role Status Dates Dr. Piero Rubin MD Primary Care Provider Active Dr. Rosalinda Kilgore , DO Emergency Provider Active Dr. Nicholas Marroquin MD Admit Provider, Other Pro vider Active Dr. Dewayne Valdovinos MD Other Provider Active Dr. Nii Black , Other Provider Active Dr. Ebenezer Sy MD Other Provider Active Dr. Bill Mae MD Other Provider Active Francy Osei NP, TELECOMMUNICATIONS NETWORK PLANNER-C Other Provider Active Dr. Jena Sawyer MD Attending Provider Active Dr. Miles Stout MD Other Provider Active Dr. Raven Saucedo MD Other Provider Active Team Status: Active Member Role Status Dates Dr. Piero Rubin MD Primary Care Provider Active Dr. Marcelo Edge MD Admit Provider, Attending Provid er Active Team Status: Inactive Member Role Status Dates Dr. Piero Rubin MD Primary Care Provider Active Dr. Marcelo Edge MD Attending Provider, Referring Pr ovider Active Team Status: Active Member Role Status Dates Dr. Piero Rubin MD Primary Care Provider Active Dr. Rosalinda Kilgore , Emergency Provider Active Dr. Nicholas Marroquin MD Admit Provider, Other Pro vider Active Dr. Dewayne Valdovinos MD Other Provider Active Dr. Nii Black , DO Other Provider Active Dr. Ebenezer Sy MD Attending Provider, Other Pro vider Active Dr. Bill Mae MD Other Provider Active Francy Osei TELECOMMUNICATIONS NETWORK PLANNER, TELECOMMUNICATIONS NETWORK PLANNER-C Other Provider Active Dr. Jena Sawyer MD Referring Provider, Other Prov ider Active Dr. Miles Stout MD Other Provider Active Team Status: Inactive Member Role Status Dates Dr. Piero Rubin MD Primary Care Provider Active Dr. Marcelo Edge MD Admit Provider, Attending Provid er Active Value Stream Leader Relationship Specialty Start Date End Date Piero Rubin MD [address] [place] [address] PCP - General Family Medicine 08/23/21 Value Stream Leader Relationship Specialty Start Date End Date Piero Rubin MD [address] [place] [address] PCP - General Family Medicine 08/23/21 Value Stream Leader Relationship Specialty Start Date End Date Piero Rubin MD [address] [place] [address] PCP - General Family Medicine 08/23/21 Value Stream Leader Relationship Specialty Start Date End Date Piero Rubin MD [address] [place] [address] PCP - General Family Medicine 08/23/21 Value Stream Leader Relationship Specialty Start Date End Date Piero Rubin MD [address] [place] [address] PCP - General Family Medicine 08/23/21 Value Stream Leader Relationship Specialty Start Date End Date Piero Rubin MD [address] [place] [address] PCP - General Family Medicine 08/23/21 Value Stream Leader Relationship Specialty Start Date End Date Piero Rubin MD [address] [place] [address] PCP - General Family Medicine 08/23/21 Value Stream Leader Relationship Specialty Start Date End Date Piero Rubin MD [address] [place] [address] PCP - General Family Medicine 08/23/21 Team Status: Active Member Role Status Dates Dr. Piero Rubin MD Primary Care Provider Active Dr. Rosalinda Kilgore , DO Emergency Provider Active Dr. Nicholas Marroquin MD Admit Provider, Other Pro vider Active Dr. Dewayne Valdovinos MD Other Provider Active Dr. Nii Black , DO Other Provider Active Dr. Ebenezer Sy MD Attending Provider, Other Pro vider Active Dr. Bill Mae MD Other Provider Active Francy Osei NP, TELECOMMUNICATIONS NETWORK PLANNER-C Other Provider Active Dr. Jena Sawyer MD Referring Provider, Other Prov ider Active Dr. Miles Stout MD Other Provider Active Dr. Raven Saucedo MD Other Provider Active Team Status: Active Member Role Status Dates Dr. Piero Rubin MD Primary Care Provider Active Dr. Rosalinda Kilgore , DO Emergency Provider Active Dr. Nicholas Marroquin MD Admit Provider, Other Pro vider Active Dr. Dewayne Valdovinos MD Attending Provider, Other Provid er Active Dr. Nii Black , DO Other Provider Active Dr. Ebenezer Sy MD Other Provider Active Dr. Bill Mae MD Other Provider Active Francy Osei NP, TELECOMMUNICATIONS NETWORK PLANNER-C Other Provider Active Dr. Jena Sawyer MD Referring Provider, Other Prov ider Active Dr. Miles Stout MD Other Provider Active Dr. Raven Saucedo MD Other Provider Active Team Status: Inactive Member Role Status Dates Dr. Piero Rubin MD Primary Care Provider Active Angelica Singletary TELECOMMUNICATIONS NETWORK PLANNER, TELECOMMUNICATIONS NETWORK PLANNER-C Attending Provider Active Team Status: Inactive Member Role Status Dates Dr. Piero Rubin MD Primary Care Provider Active Dr. Marcelo Edge MD Admit Provider, Attending Provid er Active Dr. Miles Boyce , DO Other Provider Active Dr. Dionne Vicente MD Other Provider Active Aure Moore TELECOMMUNICATIONS NETWORK PLANNER-C Other Provider Active Darleen Tereso TELECOMMUNICATIONS NETWORK PLANNER, TELECOMMUNICATIONS NETWORK PLANNER-C Other Provider Active Team Status: Inactive Member Role Status Dates Dr. Piero Rubin MD Primary Care Pro vider, Attending Provider, Referring Provider Active Value Stream Leader Relationship Specialty Start Date End Date Piero Rubin MD [address] [place] [address] PCP - General Family Medicine 08/23/21 Value Stream Leader Relationship Specialty Start Date End Date Piero Rubin MD [address] [place] [address] PCP - General Family Medicine 08/23/21 Value Stream Leader Relationship Specialty Start Date End Date Piero Rubin MD [address] [place] [address] PCP - General Family Medicine 08/23/21 Value Stream Leader Relationship Specialty Start Date End Date Piero Rubin MD [address] [place] [address] PCP - General Family Medicine 08/23/21 Value Stream Leader Relationship Specialty Start Date End Date Piero Rubin MD [address] [place] [address] PCP - General Family Medicine 08/23/21 Team Status: Inactive Member Role Status Dates Dr. Piero Rubin MD Primary Care Provider, Referri ng Provider Active Dr. Rahul Terrazas MD Attending Provider Active Team Status: Inactive Member Role Status Dates Dr. Piero Rubin MD Primary Care Provider Active Dr. Won Santacruz MD Emergency Provider Active Value Stream Leader Relationship Specialty Start Date End Date Piero Rubin MD [address] [place] [address] PCP - General Family Medicine 08/23/21 Team Status: Inactive Member Role Status Dates Dr. Piero Rubin MD Primary Care Provider Active Dr. Won Santacruz MD Attending Provider, Emergency Provi kelly Active Team Status: Inactive Member Role Status Dates Dr. Piero Rubin MD Primary Care Provider Active Dr. Rahul Terrazas MD Attending Provider, Referring Provider Active Team Status: Inactive Member Role Status Dates Dr. Piero Rubin MD Primary Care Provider Active Dr. Piero Penny MD Attending Provider, Referring Provider Active Value Stream Leader Relationship Specialty Start Date End Date Piero Rubin MD [address] [place] [address] PCP - General Family Medicine 08/23/21 Value Stream Leader Relationship Specialty Start Date End Date Piero Rubin MD [address] [place] [address] PCP - General Family Medicine 08/23/21 Value Stream Leader Relationship Specialty Start Date End Date Piero Rubin MD [address] [place] [address] PCP - General Family Medicine 08/23/21 Value Stream Leader Relationship Specialty Start Date End Date Piero Rubin MD [address] [place] [address] PCP - General Family Medicine 08/23/21 Value Stream Leader Relationship Specialty Start Date End Date Piero Rubin MD [address] [place] [address] PCP - General Family Medicine 08/23/21 Value Stream Leader Relationship Specialty Start Date End Date Piero Rubin MD [address] [place] [address] PCP - General Family Medicine 08/23/21 Value Stream Leader Relationship Specialty Start Date End Date Piero Rubin MD [address] [facility] [place] [address] PCP - General Family Medicine 08/23/21 Value Stream Leader Relationship Specialty Start Date End Date Piero Rubin MD [address] [facility] [place] [address] PCP - General Family Medicine 08/23/21 Value Stream Leader Relationship Specialty Start Date End Date Piero Rubin MD [address] [facility] [place] [address] PCP - General Family Medicine 08/23/21 Value Stream Leader Relationship Specialty Start Date End Date Piero Rubin MD [address] [facility] [place] [address] PCP - General Family Medicine 08/23/21 Dennis Florian, SLUSHER OPERATOR.BLACK ASH WORKER [address] [place] [address] Tax Collector Family Medicine 10/22/24 Ines Chatterjee PA-C [address] [place] [address] Tax Collector Family Medicine 10/22/24 Value Stream Leader Relationship Specialty Start Date End Date Piero Rubin MD [address] [facility] [place] [address] PCP - General Family Medicine 08/23/21 Dennis Florian, SLUSHER OPERATOR.BLACK ASH WORKER [address] [facility] [place] [address] Tax Collector Family Medicine 10/22/24 Ines Chatterjee PA-C [address] [place] [address] Tax Collector Family [facility] 10/22/24 Sarahi Thomas, RN Specialty Aspnet Developer Orthopedics 10/28/24 Value Stream Leader Relationship Specialty Start Date End Date Piero Rubin MD [address] [facility] [place] [address] PCP - General Family Medicine 08/23/21 Dennis Florian, SLUSHER OPERATOR.BLACK ASH WORKER [address] [place] [address] Tax Collector Family Medicine 10/22/24 Ines Chatterjee PA-C [address] [place] [address] [facility]/24 Sarahi Thomas RN Specialty Aspnet Developer Orthopedics 10/28/24 Value Stream Leader Relationship Specialty Start Date End Date Piero Rubin MD [address] [place] [address] PCP - General Family Medicine 08/23/21 Dennis Florian, SLUSHER OPERATOR.BLACK ASH WORKER [address] [place] [address] Tax Collector Family Medicine 10/22/24 Ines Chatterjee PA-C [address] [place] [address] Tax Collector Family [facility] 10/22/24 Sarahi Thomas, MICHAEL Specialty Aspnet Developer Orthopedics 10/28/24 Value Stream Leader Relationship Specialty Start Date End Date Piero Rubin MD [address] [place] [address] PCP - General Family Medicine 08/23/21 Dennis Florian, ELYSE.BLACK ASH WORKER [address] [place] [address] Tax Collector Family [facility] 10/22/24 Ines Chatterjee PA-C [address] [place] [address] Tax Collector Family Medicine 10/22/24 Sarahi Thomas, MICHAEL Specialty Aspnet Developer Orthopedics 10/28/24 Value Stream Leader Relationship Specialty Start Date End Date Piero Rubin MD [address] [place] [address] PCP - General Family Medicine 08/23/21 Dennis Florian, SLUSHER OPERATOR.BLACK ASH WORKER [address] [place] [address] Tax Collector Family Medicine 10/22/24 Ines Chatterjee PA-C [address] [place] [address] Tax Collector Family [facility] 10/22/24 Sarahi Thomas, MICHAEL Specialty Aspnet Developer Orthopedics 10/28/24 Value Stream Leader Relationship Specialty Start Date End Date Piero Rubin MD [address] [place] [address] PCP - General Family Medicine 08/23/21 Dennis Florian, SLUSHER OPERATOR.BLACK ASH WORKER [address] [place] [address] Tax Collector Family Medicine 10/22/24 Ines Chatterjee PA-C [address] [place] [address] Tax Collector Family Medicine 10/22/24 Value Stream Leader Relationship Specialty Start Date End Date Piero Rubin MD [address] [place] [address] PCP - General Family Medicine 08/23/21 Dennis Florian, ELYSE.BLACK ASH WORKER [address] [place] [address] Tax Collector Family Medicine 10/22/24 Ines Chatterjee PA-C [address] [place] [address] [facility] 10/22/24 Value Stream Leader Relationship Specialty Start Date End Date Piero Rubin MD [address] [place] [address] PCP - General Family Medicine 08/23/21 Dennis Florian, ELYSE.BLACK ASH WORKER [address] [place] [address] Tax Collector Family Medicine 10/22/24 Ines Chatterjee PA-C [address] [place] [address] Tax Collector Family Medicine 10/22/24 Value Stream Leader Relationship Specialty Start Date End Date Piero Rubin MD [address] [place] [address] PCP - General Family Medicine 08/23/21 Dennis Florian, SLUSHER OPERATOR.BLACK ASH WORKER [address] [place] [address] Tax Collector Family Medicine 10/22/24 Ines Chatterjee PA-C [address] [place], [place] [id number] [facility] 10/22/24 Value Stream Leader Relationship Specialty Start Date End Date Piero Rubin MD [address] [place], [place] [id number] PCP - General Family Medicine 08/23/21 Dennis Florian APRN.BLACK ASH WORKER [address] [place] [address] [facility] 10/22/24 Ines Chatterjee PA-C [address] [place] [address] [facility] 10/22/24 Goals (unrecognized section and content) Goals may be documented in a n alternate sectionGoals may be documented in an alternate sectionGoals may be documented in an alternate section (unrecognized sect ion and content) No Status Records FoundNo Status Records FoundNo Status Records Found INFORMATION SOURCE (unrecogn ized section and content) DATE CREATED AUTHOR 12/02/2024 [facility] DATE CREATED AUTHOR AUTHOR'S ORGANIZ ATION 01/13/2025 [facility] DATE CREATED AUTHOR AUTHOR'S ORGANIZ ATION 02/23/2025 [facility] FOR RECORDS PERTAINING TO PATIENTS WHO ARE [...] BE BASED ON THE PRIMARY CLINICAL RECORDS. [employer] [facility]. provides no warranty or guarantee of the accuracy or completeness of information in this document.
[2025-06-05 22:32] VITALS: BP 144/87; PULSE 72; RESP 19; TEMP 36.6; O2SAT 95
--- NOTE | 2025-06-05 22:34 | ED.RN ---
pt removed both ivs in rt arm. dressings applied and new iv started.
[2025-06-05 22:55] VITALS: BP 115/88; PULSE 82; RESP 18; TEMP 36.9; O2SAT 97; BMI 16.2
[2025-06-06 05:00] VITALS: BP 143/78; PULSE 68; RESP 18; TEMP 36.8; O2SAT 94
[2025-06-06 07:22] VITALS: O2SAT 94
--- NOTE | 2025-06-06 08:43 | NURSING ---
referral info given to hospice at [phone]
[2025-06-06] MEDS: Ensure Plus High Protein 120 ML LIQUID PO (09:10)
[2025-06-06 09:24] VITALS: BP 152/76; PULSE 77; RESP 18; TEMP 37.3; O2SAT 93
[2025-06-06 09:30] VITALS: RESP 18; O2SAT 94
--- NOTE | 2025-06-06 09:47 | CASEMGMT ---
Addendum entered by Mary Beth Trimble 06/06/25 13:18: MICHAEL RANDOLPH updated by MICHAEL Back that pt family now wants hospice. Email sent to palliative care to cancel referral. Original Note: Order received for palliative care, screening tool completed, referral sent via email at this time.
--- NOTE | 2025-06-06 10:36 | CASEMGMT ---
Social Work- SW met with pt to discuss consult for palliative noted in chart. SW introduced self and role; pt agreeable to meet. Pt was leaning towards one side, eyes opened only a slight amount. Bedside nurse notes pt just had pain meds. Pt was not able to carry appropriate conversation; SW observed pt to be confused and have non tangental thinking. Pt pleasant in demeanor. Pt gave permission for SW to call son, Alcon, whom pt also identified as POA. SW called son, Alcon, to discuss palliative referral request. Alcon confirmed POA status. Alcon reports that he is sick and will not be coming to visit pt at hospital. Alcon asked LISBETH to call sister Heather, who is taking the lead at this time. Alcon provided Heather, pt dtr, contact of [phone]. LISBETH called Heather, introducing self and role. LIBSETH again discussed desire for clarification of palliative vs hospice referral consult. Heather reports that Kellie, brother's girlfriend, is a nurse and the person who was in the ED with pt. Heather reports that she is planning to come from out of state in three weeks. Brother, Andrez, is slated to come from out of town Thursday. Heather questioned if decisions could be made then.LISBETH updated that SW could have dr call and discuss pt medical status, but a decision would need to be made prior to Thursday; timing dependent on course of treatment and, therefore, discharge readiness. Heather expressed feeling overwhelmed and reports that siblings are not available for conversation until later today. Heather did request conversation with hospitalist. Heather was unaware that a tube was declined in ED and wants to clarify pt medical status. LISBETH offered support via active and empathetic listening. LISBETH updated bedside nurse and hospitalist. LISBETH remains available to follow. YEFRI Arriaga
--- NOTE | 2025-06-06 10:58 | NURSING ---
spoke with daughter sedrick at length #[phone]
--- NOTE | 2025-06-06 12:29 | DCINST_ITS ---
Discharge Instructions DC O2, CPAP, BIPAP needs Home O2 Discharge instructions: No Dressing / Incision Discharge Activity: Return to Normal Activity Weight Bearing Status: Full weight bearing Follow Up Care Test Results: Test results from this visit will be discussed in further detail at your follow- up appointment, if applicable. Discharge Plan Admission Admit Date/Time: 06/05/25 21:55 Primary Reason for Your Visit: multiple rib fractures, small right pneumothorax Attending Provider: Mckay Jordan Primary Care Provider: Piero Ngo Consulting Providers: Blaine Gastelum Discharge Orders/Prescriptions Prescriptions: Continued multivitamin [Multiple Vitamins] Tablet 1 tab PO DAILY acetaminophen [Tylenol] 325 mg tablet 650 mg PO Q4H PRN (Reason: fever) finasteride 1 mg tablet 1 mg PO DAILY donepezil 10 mg tablet 10 mg PO QHS Qty: 30 4RF bisacodyl 10 mg suppository 10 mg W[place] DAILY PRN (Reason: constipation) docusate sodium [Colace] 100 mg capsule 100 mg PO BID PRN (Reason: constipation) duloxetine [Cymbalta] 60 mg capsule,delayed release(DR/EC) 60 mg PO DAILY loperamide 2 mg tablet 2 mg PO Q4H PRN (Reason: loose stool) magnesium hydroxide [Milk of Magnesia] 400 mg/5 mL suspension 30 ml PO DAILY PRN (Reason: constipation) acetaminophen 500 mg capsule 1,000 mg PO Q8H PRN (Reason: fever or pain) menthol [Blue Gel] 2 % gel 1 applic topical Q12H PRN (Reason: PAIN) hydrocortisone 2.5 % cream 1 applic topical BID PRN (Reason: skin irritation) ipratropium bromide 21 mcg (0.03 %) spray,non-aerosol 2 spray INTRANASAL BID Patient Comments: [NO ORIGINAL SIG] tizanidine 4 mg tablet 4 mg PO TID tramadol 50 mg tablet 50 mg PO Q8H PRN (Reason: pain) gabapentin 300 mg Capsule 300 mg PO Q12H Referrals / Follow Up: Piero Ngo MD [Primary Care Provider] - Within 1 Month Disposition Disposition (needs filled in before D/C Order can be placed): Assisted Living
[2025-06-06 12:32] VITALS: BP 144/77; PULSE 70; RESP 18; TEMP 37.2; O2SAT 94
--- NOTE | 2025-06-06 12:33 | DS.PCM_ITS ---
Providers Date of Admission: 06/05/25 Date of Discharge: 06/06/25 Primary Care Physician: Dr. Piero Ngo MD Reason For Visit: FALL WITH FRACTURE, DEMENTIA PNEUMOTHORAX SMALL Diagnosis Discharge Diagnosis (1) Vertebral compression fracture: Status: Acute Code(s): M48.50XA - Collapsed vertebra, not elsewhere classified, site unspecified, initial encounter for fracture (2) Dementia: Status: Acute Code(s): F03.90 - Unspecified dementia, unspecified severity, without behavioral disturbance, psychotic disturbance, mood disturbance, and anxiety (3) DNR (do not resuscitate): Status: Acute Code(s): Z66 - Do not resuscitate (4) Closed traumatic fracture of ribs of right side with pneumothorax: Status: Acute Code(s): S22.41XA - Multiple fractures of ribs, right side, initial encounter for closed fracture; S27.0XXA - Traumatic pneumothorax, initial encounter (5) Multiple falls: Status: Acute Code(s): R29.6 - Repeated falls (6) Thrombocytopenia: Status: Acute Code(s): D69.6 - Thrombocytopenia, unspecified (7) Hypertension: Status: Chronic Code(s): I10 - Essential (primary) hypertension Plan 1. Acute rib fractures with small right pneumothorax #2 Alzheimer's dementia #3 osteoporosis with old compression fractures of T12 #4 osteoporosis with new compression fracture (mild) superior endplate of T6 #5 chronic kidney disease stage IIIb Medications at Discharge Home Medications acetaminophen 325 mg tablet (Tylenol) 650 mg PO Q4H PRN fever 10/01/23 finasteride 1 mg tablet 1 mg PO DAILY 10/01/23 multivitamin (Multiple Vitamins tablet) 1 tab PO DAILY 10/01/23 donepezil 10 mg tablet 10 mg PO QHS #30 tabs 02/01/24 bisacodyl 10 mg rectal suppository 10 mg WA DAILY PRN constipation 10/28/24 docusate sodium 100 mg capsule (Colace) 100 mg PO BID PRN constipation 10/28/24 duloxetine 60 mg capsule,delayed release (Cymbalta) 60 mg PO DAILY 10/28/24 loperamide 2 mg tablet 2 mg PO Q4H PRN loose stool 10/28/24 magnesium hydroxide 400 mg/5 mL oral suspension (Milk of Magnesia) 30 ml PO DAILY PRN constipation 10/28/24 acetaminophen 500 mg capsule 1,000 mg PO Q8H PRN fever or pain 06/05/25 gabapentin 300 mg capsule 300 mg PO Q12H 06/05/25 hydrocortisone 2.5 % topical cream 1 applic topical BID PRN skin irritation 06/05/25 ipratropium bromide 21 mcg (0.03 %) nasal spray 2 spray intranasal BID 06/05/25 menthol 2 % topical gel (Blue Gel) 1 applic topical Q12H PRN PAIN 06/05/25 tizanidine 4 mg tablet 4 mg PO TID 06/05/25 tramadol 50 mg tablet 50 mg PO Q8H PRN pain 06/05/25 Hospital Course Operations None Procedures None Summary of Care Provided Minutes Spent on Discharge: 31 Hospital Course: This 85-year-old white male was seen in the emergency room at [facility] after being brought in from assisted living memory unit with a chief complaint of a fall. Patient recently fell and sustained multiple rib fractures to the right side, chest x-ray was obtained in the emergency room showed a small right upper pneumothorax, patient was also sent in due to decreased mentation. Discussions were carried out with the patient's family concerning a chest tube and it was agreed to conservative treatment would be the approach, patient was admitted to [place] [address], he did not require supplemental oxygen and he was seen by PT and OT. I reached out to the patient's assisted living memory care unit and talked with nursing there who is familiar with the patient, it appears that the patient's ADL status has been declining due to his age and dementia and the requested that he be sent into the hospital for evaluation. The following day, patient appeared stable for discharge back to assisted living, he was already on pain medication therefore compression fractures of his back. On 06/06/2025, patient was seen and examined: On examination he appeared in no distress, he appeared confused. Vital signs as documented. Skin warm and dry and without overt rashes. Neck without JVD, neck was supple, trachea midline, thyroid was normal. Lungs clear bilaterally, normal air movement was noted. Heart exam notable for regular rhythm, normal sounds and absence of murmurs, rubs or gallops. Abdomen unremarkable and without evidence of organomegaly, masses, or abdominal aortic enlargement. Bowel sounds are present, abdomen is not distended. Extremities nonedematous, no cyanosis was noted, no clubbing was noted. Neuro: Cranial nerves II through XII are grossly intact, no focal motor deficits were noted, sensation to light touch and pinprick intact, motor exam 5/5 throughout. Psych: Patient is alert , he does not appear anxious or depressed, he exhibits confusion. Patient was discharged to his assisted living memory care unit in stable condition. Weight / BMI Weight Weight: 48.6 kg Body Mass Index (BMI) 16.2 ABG / Lab / Microbiology Data 06/05/25 15:57 06/05/25 15:57 Laboratory: Laboratory Results - last 24 hr 06/05/25 15:57: WBC 14.3 H, RBC 4.15 L, Hgb 13.7, Hct 40.9, MCV 98.6 H, MCH 33.0 H, MCHC 33.5, RDW Std Deviation 55.9 H, RDW Coeff of Apolonia 15.3 H, Plt Count 187, MPV 11.6, Immature Gran % (Auto) 0.300, Neut % (Auto) 79.7 H, Lymph % (Auto) 7.2 L, Swift % (Auto) 11.7 H, Eos % (Auto) 0.8, Baso % (Auto) 0.3, Absolute Neuts (auto) 11.4 H, Absolute Lymphs (auto) 1.02, Nucleated RBC % 0, Differential Comment SCANNED, Platelet Estimate ADEQUATE, Sodium 141, Potassium 4.2, Chloride 101, Carbon Dioxide 29.0, Anion Gap 11, BUN 17, Creatinine 1.10, Estim Creat Clear Calc 34.30 L, Est GFR (MDRD) Non-Af 65, BUN/Creatinine Ratio 15.5, Glucose 110 H, Calcium 9.6, Total Bilirubin 0.83, AST 28, ALT 17, Alkaline Phosphatase 78, Total Protein 7.5, Albumin 4.1, Globulin 3.4, Albumin/Globulin Ratio 1.2 06/05/25 16:16: Lactic Acid 1.3, Urine Color Yellow, Urine Clarity Clear, Urine pH 6.0, Ur Specific [place] 1.020, Urine Protein 30 H, Urine Glucose (UA) Normal, Urine Ketones Negative, Urine Occult Blood 25 H, Urine Nitrite Negative, Urine Bilirubin Negative, Urine Urobilinogen Normal, Ur Leukocyte Esterase Negative, Urine RBC 0-5 SEEN, Urine WBC 0-5 SEEN, Ur Squamous Epith Cells 0-5 SEEN, Urine Bacteria 0 SEEN, Urine Mucus 0 SEEN Microbiology: Microbiology 06/05/25 16:20 Mucosa - Nose SARS-CoV-2, Influenza & RSV (PCR) - Final Radiography Diagnostic Testing: Radiology Impression Brain CT 06/05/25 16:05 IMPRESSION: No acute intracranial process. Reading [facility] Chest X-Ray 06/05/25 16:31 IMPRESSION: 1. Right lung base consolidation may represent pneumonia. 2. Left upper lung zone 11 mm nodule, better characterized on prior CT. 3. Right lateral mid lung zone chronic linear scarring/discoid atelectasis, likely related to multiple old right posterolateral rib fractures. Reading Location: [facility] Cervical Spine CT 06/05/25 16:39 IMPRESSION: 1. No acute cervical spine fracture or traumatic malalignment. 2. Small right pneumothorax seen in the included lung apices. Findings discussed via telephone with provider Rajinder Renner 06/05/2025 at 4:50 p.m. [employer]. Reading Location: [facility] Lumbar Spine X-Ray 06/05/25 16:55 IMPRESSION: 1. Small right apical pneumothorax again noted. 2. New probable acute mild compression fracture involving superior endplate of T6. 3. Stable appearing severe chronic compression fracture deformity of T12. 4. Mild multilevel spondylotic changes with thoracic scoliosis. Reading Location: [facility] Thoracic Spine X-Ray 06/05/25 16:55 IMPRESSION: 1. Small right apical pneumothorax again noted. 2. New probable acute mild compression fracture involving superior endplate of T6. 3. Stable appearing severe chronic compression fracture deformity of T12. 4. Mild multilevel spondylotic changes with thoracic scoliosis. Reading Location: [facility] D/C Instructions Weight Bearing Status: Full weight bearing DC O2, CPAP, BIPAP Needs Home O2 Discharge instructions: No Meaningful Use Info Meaningful Use Meaningful Use Diagnoses (Choose all that apply): None applicable Discharge Plan Admission Admit Date/Time: 06/05/25 21:55 Primary Reason for Your Visit: multiple rib fractures, small right pneumothorax Attending Provider: Mckay Jordan Primary Care Provider: Piero Ngo Consulting Providers: Blaine Gastelum Discharge Orders/Prescriptions Prescriptions: Continued multivitamin [Multiple Vitamins] Tablet 1 tab PO DAILY acetaminophen [Tylenol] 325 mg tablet 650 mg PO Q4H PRN (Reason: fever) finasteride 1 mg tablet 1 mg PO DAILY donepezil 10 mg tablet 10 mg PO QHS Qty: 30 4RF bisacodyl 10 mg suppository 10 mg WA DAILY PRN (Reason: constipation) docusate sodium [Colace] 100 mg capsule 100 mg PO BID PRN (Reason: constipation) duloxetine [Cymbalta] 60 mg capsule,delayed release(DR/EC) 60 mg PO DAILY loperamide 2 mg tablet 2 mg PO Q4H PRN (Reason: loose stool) magnesium hydroxide [Milk of Magnesia] 400 mg/5 mL suspension 30 ml PO DAILY PRN (Reason: constipation) acetaminophen 500 mg capsule 1,000 mg PO Q8H PRN (Reason: fever or pain) menthol [Blue Gel] 2 % gel 1 applic topical Q12H PRN (Reason: PAIN) hydrocortisone 2.5 % cream 1 applic topical BID PRN (Reason: skin irritation) ipratropium bromide 21 mcg (0.03 %) spray,non-aerosol 2 spray INTRANASAL BID Patient Comments: [NO ORIGINAL SIG] tizanidine 4 mg tablet 4 mg PO TID tramadol 50 mg tablet 50 mg PO Q8H PRN (Reason: pain) gabapentin 300 mg Capsule 300 mg PO Q12H Referrals / Follow Up: Piero Ngo MD [Primary Care Provider] - Within 1 Month Disposition Disposition (needs filled in before D/C Order can be placed): Assisted Living Charges/Coding Visit Charges Inpatient E&M: 09733 Disch Hosp >30min
--- NOTE | 2025-06-06 13:05 | CASEMGMT ---
Addendum entered by Nazanin Marino 06/06/25 15:16: Addendum: When MICHAEL RANDOLPH spoke w/Heather and Kellie, they confirm they wish for pt to return to [facility] w/[facility]. Addendum entered by Nazanin Marino 06/06/25 13:26: MICHAEL RANDOLPH received a call from Kellie, who is Andrez's girlfriend. (Andrez is pt's son). Kellie then placed pt's dtr, Heather, on the phone on 3-way call. Heather and Kellie both state they have spoken w/each other and pt's sons and they have all made the decision they would like hospice now instead of palliative care. They also state they would like [facility]. Dr Jordan made aware. Farhana BOB, made aware and will f/u with Stefany @ [place] and with family. Addendum entered by Nazanin Marino 06/06/25 13:20: H/P, discharge summary, and discharge instructions faxed to [facility]. Original Note: MICHAEL RANDOLPH NOTE: Pt from [facility]. Discharge order is in. Call placed to update Stefany patient navigator @ [place]. No answer. left requesting return call. Janett MAYFIELD RN, CM
--- NOTE | 2025-06-06 13:29 | PHA.DC.MR.R ---
Pharmacy ID Med Reconciliation Pharmacy Service has performed discharge medication reconciliation for this patient. The patient's discharge medication list was reviewed for discrepancies and discrepancies were resolved. Medications at Discharge Home Medications acetaminophen 325 mg tablet (Tylenol) 650 mg PO Q4H PRN fever 10/01/23 finasteride 1 mg tablet 1 mg PO DAILY 10/01/23 multivitamin (Multiple Vitamins tablet) 1 tab PO DAILY 10/01/23 donepezil 10 mg tablet 10 mg PO QHS #30 tabs 02/01/24 bisacodyl 10 mg rectal suppository 10 mg AR DAILY PRN constipation 10/28/24 docusate sodium 100 mg capsule (Colace) 100 mg PO BID PRN constipation 10/28/24 duloxetine 60 mg capsule,delayed release (Cymbalta) 60 mg PO DAILY 10/28/24 loperamide 2 mg tablet 2 mg PO Q4H PRN loose stool 10/28/24 magnesium hydroxide 400 mg/5 mL oral suspension (Milk of Magnesia) 30 ml PO DAILY PRN constipation 10/28/24 acetaminophen 500 mg capsule 1,000 mg PO Q8H PRN fever or pain 06/05/25 gabapentin 300 mg capsule 300 mg PO Q12H 06/05/25 hydrocortisone 2.5 % topical cream 1 applic topical BID PRN skin irritation 06/05/25 ipratropium bromide 21 mcg (0.03 %) nasal spray 2 spray intranasal BID 06/05/25 menthol 2 % topical gel (Blue Gel) 1 applic topical Q12H PRN PAIN 06/05/25 tizanidine 4 mg tablet 4 mg PO TID 06/05/25 tramadol 50 mg tablet 50 mg PO Q8H PRN pain 06/05/25
--- NOTE | 2025-06-06 14:29 | CASEMGMT ---
Social Work- SW received notice from RNCM that pt family would like hospice. SW received a voicemail from Kellie and Heather reporting that they would like [facility]. SW called pt dtr Heather and left a voicemail. SW faxed referral for hospice to [facility]. SW called to follow up to clarify that pt family no longer wants palliative, but does want hospice. Hospice staff to call pt family. LISBETH called pt son and QUEENIE Rondon to update on referral and to notify that hospice will call within the hour to arrange consult time. LISBETH relayed to both Heather and Alcon that pt will d/c today irregardless; hospice can always consult at [place]. Alcon expressed understanding. LISBETH remains available to follow. YEFRI Arriaga
--- NOTE | 2025-06-06 14:48 | CASEMGMT ---
Discharge Planning Stefany Gonzalez is currently on vacation. Contact for this week is Agustina ([phone]). Agustina confirms that fax was rec'd and pt is appropriate to return. She requested notification of when hospice consult would take place. Call placed to Lisa to request that copy of HC POA be faxed to [facility], attn; Farhana. RN CM and SW updated of the above. Latricia Harrison DC Planning Asst.
--- NOTE | 2025-06-06 15:52 | CASEMGMT ---
Addendum entered by Nazanin Marino 06/06/25 16:03: Call placed to renay Rondon's son. He was made updated on transport @ 5:30 PM back to [place]. Original Note: MICHAEL RANDOLPH note: [facility] to [facility] & spoke w/Kane. Cot transport scheduled for pickling machine operator @ 5:30 PM. Estela RODRIGUEZ, made aware and aware to call report to Lisa McclendonN RN [facility]
--- NOTE | 2025-06-06 16:06 | NURSING ---
report called to Lisa unsucessful x1
--- NOTE | 2025-06-06 16:10 | NURSING ---
report given to bill rodriguez [facility]
--- NOTE | 2025-06-06 16:22 | CASEMGMT ---
Addendum entered by Farhana Henderson 06/06/25 17:07: LISBETH received a call from [facility] that per family request, consult will be held Thursday at 5:30, as the children from out of town plan to be present. LISBETH called Lisa and updated staff. YEFRI Arriaga Original Note: Social Work- LISBETH called Agustina and left a message regarding pt discharge. LISBETH called Lisa and provided transport update to staff. LISBETH faxed discharge instructions. Lisa faxed LISBETH HCPOA paperwork. Pt POA is Andrez with Heather and Alcon following. RNCM updated family. Plan: Lisa VEGA with hospice consult YEFRI Arriaga
== END 2025-06-06 16:42 | disposition home or self-care (01) | DRG 200 ==
LOC: ED 21:43 → MS3 22:04
PROVIDERS: Admitting Provider Family Medicine; Emergency Provider Emergency Medicine; PCP Family Medicine; Visit Provider Internal Medicine
DX: S27.0XXA Traumatic pneumothorax, initial encounter (principal); S22.41XA Multiple fractures of ribs, right side, initial encounter for closed fracture; M80.08XA Age-related osteoporosis with current pathological fracture, vertebra(e), initial encounter for fracture; D69.6 Thrombocytopenia, unspecified; Z66 Do not resuscitate; F02.80 Dementia in other diseases classified elsewhere, unspecified severity, without behavioral disturbance, psychotic disturbance, mood disturbance, and anxiety; N18.32 Chronic kidney disease, stage 3b; I12.9 Hypertensive chronic kidney disease with stage 1 through stage 4 chronic kidney disease, or unspecified chronic kidney disease; G30.9 Alzheimer's disease, unspecified; W19.XXXA Unspecified fall, initial encounter; R29.6 Repeated falls; Z79.899 Other long term (current) drug therapy; Z85.830 Personal history of malignant neoplasm of bone; Z87.891 Personal history of nicotine dependence
CPT/HCPCS: 70450; 71045; 72070; 72100; 72125; 80053; 81001; 83605; 85025; 87631; 93005; 99285; P9612; A4216